=== PATIENT | male | born 1970 | race Caucasian/White ===

== ENCOUNTER → 2021-07-30 08:11 | Outpatient (CLI) | payer MEDICAID, SELFPAY ==
--- NOTE | 2021-07-30 14:49 | PFTCOMP ---
COMPLETE PULMONARY FUNCTION TEST INTERPRETATION Brief HPI: Patient is a 50 year old male, currently under the care of myself, who presents to [facility] for complete pulmonary function tests secondary to diagnosis of tobacco dependency. Respiratory therapist reports good effort and reproducible results. Interpretation: Forced expiration spirometry shows a moderately severe large airways obstructive ventilatory defect with an FEV1 of 57% predicted. There is a significant bronchodilator response in FVC and FEV1 by strict ATS criteria. Spirograms are of good quality and plateau slowly, indicating slowly emptying areas of the lungs. The respiratory flow volume loop shows decreased expiratory flow rates at all lung volumes consistent with airway obstruction. Lung volumes by body plethysmography show a normal total lung capacity at 7.28 L, 100% predicted. FRC and RV are elevated out of proportion. Lung volume measurements are consistent with air-trapping. Diffusion capacity by carbon monoxide is normal at 94% predicted. The airway resistance is slightly elevated. No previous pulmonary function tests were available for review. Impression: Partially reversible moderately severe large airways obstructive ventilatory defect, resulting in air trapping, in a pattern consistent with COPD/asthma overlap syndrome.
== END ==
PROVIDERS: PCP Family Medicine; Referring Provider Internal Medicine Critical Care Medicine; Visit Provider Internal Medicine Critical Care Medicine
DX: F17.200 Nicotine dependence, unspecified, uncomplicated (principal)
CPT/HCPCS: 94060; 94726; 94729

== ENCOUNTER → 2021-09-03 12:19 | Outpatient (CLI) | payer MEDICAID, SELFPAY ==
[2021-09-03 12:42] VITALS: PULSE 100; PULSE 101; PULSE 83; PULSE 99; O2SAT 94; O2SAT 95; O2SAT 96; O2SAT 97
--- NOTE | 2021-09-05 08:54 | PCM.PSN.6M ---
PSN 6 Minute Walk Test 6 Minute Walk Test 6 Minute Walk Test: 6 Minute Walk Test PSN:6-Minute Walk Test Start: 09/03/21 12:42 Freq: Status: Active Protocol: RESP.6MINW Document 09/03/21 12:42 KAREN (Rec: 09/03/21 12:44 KAREN [id number]) 6 Minute Walk Test Date Performed 09/03/21 Time Performed 12:30 Height 6 ft Weight: 110.223 kg Weight in Pounds 243.[address]: Dipesh Pearson Assistive device used: None Pre-test Oxygen Delivery Method Room Air Pulse Ox (%) 96 Pulse Rate (60-100 beats/min) 83 Dyspnea Mini Scale (0-10) 0 Exertion Mini Scale (6-20) 6 1st minute Oxygen Delivery Method Room Air Pulse Ox (%) 94 Pulse Rate (60-100 beats/min) 100 2nd minute Oxygen Delivery Method Room Air Pulse Ox (%) 95 Pulse Rate (60-100 beats/min) 99 3rd minute Oxygen Delivery Method Room Air Pulse Ox (%) 94 Pulse Rate (60-100 beats/min) 101 H 4th minute Oxygen Delivery Method Room Air Pulse Ox (%) 94 Pulse Rate (60-100 beats/min) 101 H 5th minute Oxygen Delivery Method Room Air Pulse Ox (%) 94 Pulse Rate (60-100 beats/min) 99 6th minute Oxygen Delivery Method Room Air Pulse Ox (%) 95 Pulse Rate (60-100 beats/min) 100 Dyspnea Mini Scale (0-10) 1 Exertion Mini Scale (6-20) 11 Post-test Oxygen Delivery Method Room Air Pulse Ox (%) 97 Pulse Rate (60-100 beats/min) 83 Full Laps Walked 14 Partial Lap, Number of Tiles Walked 10 Total Distance Walked (ft) 836 Interpretation Interpretation: The patient ambulated 836 feet over the course of 6 minutes beginning on room air without assistive devices. Pretesting oxygen saturation was noted to be 96% on room air. With ambulation, the shane oxygen saturation was 94%. There was no significant exertional oxygen desaturation. Recommendations Recommendations: There is no indication for the use of supplemental oxygen at this time.
== END ==
PROVIDERS: PCP Family Medicine; Referring Provider Internal Medicine Critical Care Medicine; Visit Provider Internal Medicine Critical Care Medicine
DX: F17.200 Nicotine dependence, unspecified, uncomplicated (principal)
CPT/HCPCS: 94618

== ENCOUNTER → 2021-09-12 13:34 | Outpatient (CLI) | payer MEDICAID, SELFPAY ==
--- NOTE | 2021-09-12 13:35 | CT_ITS ---
STUDY: LOW DOSE CT LUNG CANCER SCREENING REASON FOR EXAM: Male, 50 years old. Smoker 1 ppd and gt; 20 years RADIATION DOSAGE (If Supplied By Facility): CTDIvol = ( 4.02 ) mGy, DLP = ( 139.94 ) mGycm TECHNIQUE: No contrast was administered. Low dose technique was utilized (average mAS-38 and kVp 120). 1.25 mm axial source images with a slice interval of 1.25-mm were reconstructed in lung windows. 2.5 mm axial source images with a slice interval of 2.5-mm were reconstructed in lung windows. 5.0 mm axial source images with a slice interval of 5.0-mm were reconstructed in soft tissue windows. Nodule measured using lung windows on PACS and/or independent workstation with automated measurement of minimum and maximum diameter. Nodule measurement reported as average diameter rounded to the nearest whole number. Growth is defined as an increase ins size of greater than 1.5 mm. COMPARISON: None. NODULES: No suspicious nodules are seen. Emphysema: Minimal linear scarring in the anterior medial aspect of the right middle lobe as well as in the lingular segment of the left upper lobe. Endobronchial lesion: None Aorta: Unremarkable Coronary arteries: Coronary artery calcification. Heart: Unremarkable Pulmonary artery: Unremarkable Mediastinal nodes: Small benign appearing mediastinal lymph nodes. Other chest and abdominal findings: CT/Low Dose CT Lung Screening IMPRESSION: Lung-RADS category 2 - Continue annual screening with LDCT in 12 months. IMPORTANT NOTES FOR USE: ACR Lung-RADS Version 1.1 Assessment Categories Release Date: 2018 Category: Coded 0-4 bases on nodule(s) with highest degree of suspicion. Negative screen is defined as categories 1 and 2; a positive screen is defined as categories 3 and 4. Category 3 and 4A nodules that are unchanged on interval CT should be coded as category 2, and individuals returned to screening in 12 months. Category 4X: Category 3 or 4 nodules with additional imaging findings that increase the suspicion of lung cancer, such as spiculation, GGN that doubles in size in 1 year, enlarged lymph notes, etc. Category Modifiers: S (significant finding unrelated to lung cancer) Electronically Signed: Gerald Lester MD at 14:11 EST , Service support ,
== END ==
PROVIDERS: PCP Nurse Practitioner Family; Referring Provider Nurse Practitioner Acute Care; Visit Provider Nurse Practitioner Acute Care
DX: F17.210 Nicotine dependence, cigarettes, uncomplicated (principal)
CPT/HCPCS: 71271

== ENCOUNTER 2022-12-10 17:42 | Emergency (ER) | payer MEDICAID, SELFPAY ==
[2022-12-10 17:43] VITALS: BP 142/94; PULSE 89; RESP 18; TEMP 36.1; O2SAT 98; BMI 33.3
--- NOTE | 2022-12-10 17:46 | RAD_ITS ---
STUDY: X-RAY - UNILATERAL RIBS ( LEFT ) WITH CHEST REASON FOR EXAM: Male, 52 years old. Patient states he broke left ribs a month ago secondary to coughing. Patient heard a pop after coughing last night with recurrent left posterior rib pain. TECHNIQUE - RIBS: 5 view(s) of the ribs. TECHNIQUE - CHEST: Single PA view of the chest. COMPARISON: CT of the chest, September 12, 2021. FINDINGS - RIBS: There is a healed fracture of the left anterior 10th rib. There is a displaced fracture of the posterior lateral left eighth rib. FINDINGS - CHEST: The lungs are clear and expanded. There is no demonstrated pleural abnormality. Sternal cerclage wires are present from a prior sternotomy. The heart is normal in size. Normal mediastinum and andre. Normal visualized pulmonary arteries. Normal visualized aortic arch and descending thoracic aorta. Normal visualized thoracic spine. Normal visualized ribs, clavicles, and shoulders. There is no demonstrated abnormality of the visualized soft tissue structures of the upper abdomen. RAD/Ribs Uni Min 3V w/PA Chest IMPRESSION: RIBS: Acute fracture of the posterolateral left eighth rib. CHEST: Normal x-ray examination of the chest. Electronically Signed: Frank Albert DO at 18:28 EDT ,
== END 2022-12-10 19:31 | disposition left against medical advice (07) ==
LOC: ED 19:37
PROVIDERS: PCP Nurse Practitioner Family
DX: Z53.21 Procedure and treatment not carried out due to patient leaving prior to being seen by health care provider (principal)
CPT/HCPCS: 71101

== ENCOUNTER → 2024-04-05 | Outpatient (CLI) | payer MEDICAID, SELFPAY ==
--- NOTE | 2024-04-05 12:18 | CT_ITS ---
STUDY: LOW DOSE CT LUNG CANCER SCREENING REASON FOR EXAM: Male, 53 years old. smoker RADIATION DOSAGE (If Supplied By Facility): CTDIvol = ( 4.02 ) mGy, DLP = ( 137.43 ) mGycm TECHNIQUE: No contrast was administered. Low dose technique was utilized (average mAS-38 and kVp 120). 1.25 mm axial source images with a slice interval of 1.25-mm were reconstructed in lung windows. 2.5 mm axial source images with a slice interval of 2.5-mm were reconstructed in lung windows. 5.0 mm axial source images with a slice interval of 5.0-mm were reconstructed in soft tissue windows. COMPARISON: 09/12/2021 Emphysema: Mild emphysema. No noncalcified nodule or mass. Endobronchial lesion: None Aorta: No thoracic aortic aneurysm. CORONARY ARTERIES: Coronary artery calcification is seen. Heart: No cardiomegaly. Pulmonary artery: Normal Mediastinal nodes: Normal Other chest and abdominal findings: Status post median sternotomy. Multiple healed left rib fractures. CT/Low Dose CT Lung Screening IMPRESSION: Lung-RADS category 1 - Continue annual screening with LDCT in 12 months. IMPORTANT NOTES FOR USE: ACR Lung-RADS Version 1.1 Assessment Categories Release Date: 2018 Category: Coded 0-4 bases on nodule(s) with highest degree of suspicion. Negative screen is defined as categories 1 and 2; a positive screen is defined as categories 3 and 4. Category 3 and 4A nodules that are unchanged on interval CT should be coded as category 2, and individuals returned to screening in 12 months. Category 4X: Category 3 or 4 nodules with additional imaging findings that increase the suspicion of lung cancer, such as spiculation, GGN that doubles in size in 1 year, enlarged lymph notes, etc. Category Modifiers: S (significant finding unrelated to lung cancer) Electronically Signed: Rodney Maldonado MD at 9:57 EDT ,
== END | disposition home or self-care (01) ==
PROVIDERS: PCP Nurse Practitioner Family; Referring Provider Nurse Practitioner Acute Care; Visit Provider Nurse Practitioner Acute Care
DX: F17.210 Nicotine dependence, cigarettes, uncomplicated (principal); J44.9 Chronic obstructive pulmonary disease, unspecified
CPT/HCPCS: 71271; 94060; 94726; 94729

== ENCOUNTER → 2024-04-08 | Outpatient (CLI) | payer MEDICAID, SELFPAY ==
[2024-04-08 12:30] VITALS: PULSE 100; PULSE 103; PULSE 86; PULSE 89; PULSE 95; PULSE 97; PULSE 98; O2SAT 88; O2SAT 90; O2SAT 91; O2SAT 92; O2SAT 93; O2SAT 94
--- NOTE | 2024-04-08 13:06 | CPS ---
Pt dropped to 88% 2 minutes into walk. Pt was placed on 1 lpm and finished walk on the 1 lpm.
--- NOTE | 2024-04-14 09:47 | PCM.PSN.6M ---
PSN 6 Minute Walk Test 6 Minute Walk Test 6 Minute Walk Test: 6 Minute Walk Test PSN:6-Minute Walk Test Start: 04/08/24 12:55 Freq: Status: Active Protocol: RESP.6MINW Document 04/08/24 12:30 AEH (Rec: 04/08/24 13:06 AEH [id number]) 6 Minute Walk Test Date Performed 04/08/24 Time Performed 12:30 Height 6 ft 1 in Weight: 243 lb Weight in Pounds 243.[address]: Sheryl Assistive device used: None Pre-test Oxygen Delivery Method Room Air Pulse Ox (%) 92 Pulse Rate (60-100 beats/min) 86 Dyspnea Mini Scale (0-10) 0 Exertion Mini Scale (6-20) 6 1st minute Oxygen Delivery Method Room Air Pulse Ox (%) 90 Pulse Rate (60-100 beats/min) 103 H 2nd minute Oxygen Delivery Method Room Air Pulse Ox (%) 88 Pulse Rate (60-100 beats/min) 98 3rd minute Oxygen Flow Rate (L/min) (L/min) 1 Pulse Ox (%) 94 Pulse Rate (60-100 beats/min) 95 4th minute Oxygen Flow Rate (L/min) (L/min) 1 Oxygen Delivery Method Nasal Cannula Pulse Ox (%) 92 Pulse Rate (60-100 beats/min) 97 5th minute Oxygen Flow Rate (L/min) (L/min) 1 Oxygen Delivery Method Nasal Cannula Pulse Ox (%) 91 Pulse Rate (60-100 beats/min) 100 Dyspnea Mini Scale (0-10) 0.5 Exertion Mini Scale (6-20) 11 6th minute Oxygen Flow Rate (L/min) (L/min) 1 Oxygen Delivery Method Nasal Cannula Pulse Ox (%) 90 Pulse Rate (60-100 beats/min) 98 Dyspnea Mini Scale (0-10) 0.5 Exertion Mini Scale (6-20) 11 Post-test Oxygen Flow Rate (L/min) (L/min) 1 Oxygen Delivery Method Nasal Cannula Pulse Ox (%) 93 Pulse Rate (60-100 beats/min) 89 Full Laps Walked 13 Partial Lap, Number of Tiles Walked 11 Total Distance Walked (ft) 778 Interpretation Interpretation: The patient ambulated 778 feet over the course of 6 minutes beginning on room air without assistive devices. Pretesting oxygen saturation was 92% on room air. With ambulation, the shane oxygen saturation was 88%, requiring 1 L/min of supplemental oxygen to complete the remainder of the test, while maintaining appropriate oxygen saturations. Recommendations Recommendations: 1 L/min of supplemental oxygen should be utilized with exertion.
== END | disposition home or self-care (01) ==
LOC: PSN 12:18
PROVIDERS: PCP Nurse Practitioner Family; Referring Provider Nurse Practitioner Acute Care; Visit Provider Nurse Practitioner Acute Care
DX: J44.9 Chronic obstructive pulmonary disease, unspecified (principal)
CPT/HCPCS: 94618

== ENCOUNTER → 2024-07-20 | Outpatient (CLI) | payer MEDICAID, SELFPAY ==
[2024-07-20 12:51] LABS: Anion Gap 7 (5-15); BUN 14 mg/dL (7-18); BUN/Creat Ratio 13.6 RATIO (10-20); Calcium,Total 9.4 mg/dL (8.5-10.1); Chloride 100 mmol/L (98-107); Creatinine, Serum 1.03 mg/dL (0.70-1.30); EST Glomerular Filtration Rate 80 mL/min (>60); Est Glom Filt Rate - Afr Amer 97 mL/min (>60); Glucose 344 mg/dL (74-106); Potassium 4.1 mmol/L (3.5-5.1); Sodium Level 135 mmol/L (136-145)
[2024-07-20 12:56] LABS: Hemoglobin A1c 11.2 % (3.8-5.6)
== END | disposition home or self-care (01) ==
LOC: BIMLAB 10:28
PROVIDERS: PCP Family Medicine; Referring Provider Family Medicine; Visit Provider Family Medicine
DX: E11.9 Type 2 diabetes mellitus without complications (principal)
CPT/HCPCS: 36415; 80048; 83036; 84443

== ENCOUNTER 2024-08-31 10:53 | Outpatient (CLI) | payer MEDICAID, SELFPAY ==
[2024-08-31 12:46] LABS: Absolute Lymphocyte Count 1.94 X10^3/uL (0.83-4.51); Absolute Neutrophil Count 5.7 X10^3/uL (2.0-7.7); Basophil# 0.05 X10^3/uL; Basophil% 0.6 % (0-1); Eosinophils% 1.2 % (0-5); Hematocrit 47.8 % (40-54); Hemoglobin 16.1 g/dL (13.0-16.5); Lymphocyte # 1.94 X10^3/ul (0.83-4.51); Lymphocyte % 23.3 % (19-41); Mean Corp Hgb Conc 33.7 g/dL (32-36); Mean Corpuscular Hgb 29.6 pg (27.0-32.0); Mean Corpuscular Volume 87.9 fL (80-94); Mean Platelet Vol. 10.8 fl (6.2-12.0); Monocyte# 0.52 X10^3/uL; Monocyte% 6.3 % (0-10); NRBC Flagged by Analyzer 0 % (0-5); Neutrophil # 5.65 X10^3/uL (2.7-7.7); Neutrophil % 67.9 % (47-70); Platelet Count 303 K/mm3 (150-450); RBC Distribution Width CV 13.2 % (11.6-14.6); RBC Distribution Width SD 42.8 fl (35.1-43.9); Red Blood Count 5.44 M/mm3 (4.6-6.2); White Blood Count 8.3 K/mm3 (4.4-11.0)
[2024-08-31 13:11] LABS: Glucose 193 mg/dL (74-106)
[2024-08-31 13:36] LABS: Magnesium 2.7 mg/dL (1.6-2.6)
[2024-08-31 14:20] LABS: Hemoglobin A1c 9.4 % (3.8-5.6)
[2024-08-31 22:46] LABS: Vitamin B12 473 pg/mL (211-911)
[2024-09-05 13:07] LABS: Vitamin B1, Thiamine 150.4 nmol/L (66.5-200.0)
== END 2024-08-31 23:59 | disposition home or self-care (01) ==
LOC: BIMLAB 10:54
PROVIDERS: PCP Family Medicine; Referring Provider Family Medicine; Visit Provider Family Medicine
DX: E11.42 Type 2 diabetes mellitus with diabetic polyneuropathy (principal)
CPT/HCPCS: 36415; 82607; 82746; 82947; 83036; 83735; 84425; 85025

== ENCOUNTER → 2024-10-05 | Outpatient (CLI) | payer MEDICAID, SELFPAY ==
--- NOTE | 2024-10-05 13:01 | NEURO ---
NCS and/or EMG Patient Report Ordering Doctor: Jim Self DATE OF SERVICE: 10/05/24 Cristobal presents with complaints of numbness and tingling in both hands, worse on the right side. Electrodiagnostic findings: Right median motor nerve demonstrates prolonged latency with reduced amplitude and reduced conduction velocity. Left median motor nerve demonstrates prolonged latency with reduced amplitude and reduced conduction velocity. Ulnar motor response is within normal limits bilaterally. Prolonged right median sensory latency at the wrist. Needle EMG testing was performed in the upper limbs. All muscles tested showed no evidence of denervation with normal motor unit action potentials. Electrodiagnostic impression: This is an abnormal study in the upper limbs 1. Electrodiagnostic findings suggestive of bilateral median mononeuropathy. This is consistent with a moderate bilateral carpal tunnel syndrome. 2. There is no electrodiagnostic evidence for cervical radiculopathy Multi Select Codes Neurology Neurology Interp Codes: 98059-57 Musc test done w/n test comp (interp) (2) and 72426-58 Nrv cndj test 9-10 studies (interp)
== END | disposition home or self-care (01) ==
LOC: PSN 09:34
PROVIDERS: PCP Family Medicine; Referring Provider Orthopaedic Surgery Sports Medicine; Visit Provider Orthopaedic Surgery Sports Medicine
DX: G56.03 Carpal tunnel syndrome, bilateral upper limbs (principal)
CPT/HCPCS: 95886; 95911

== ENCOUNTER → 2024-10-21 | Outpatient (CLI) | payer MEDICAID, SELFPAY ==
[2024-10-21] MEDS: Ipratropium/Albuterol Sulfate 3 ML AMPUL.NEB INHALATION (22:23)
[2024-10-22] MEDS: Ipratropium/Albuterol Sulfate 3 ML AMPUL.NEB INHALATION (02:07)
== END | disposition home or self-care (01) ==
LOC: SL 20:23
PROVIDERS: PCP Family Medicine; Referring Provider Nurse Practitioner Acute Care; Visit Provider Nurse Practitioner Acute Care
DX: G47.33 Obstructive sleep apnea (adult) (pediatric) (principal)
CPT/HCPCS: 95811

== ENCOUNTER → 2025-03-21 | Outpatient (CLI) | payer MEDICAID, SELFPAY ==
[2025-03-21 13:44] LABS: Cholesterol 216 mg/dL (<=200); Low Density Lipoprotein Calc. 99 mg/dL; Magnesium 2.0 mg/dL (1.5-2.2); Triglycerides 394 mg/dL; Very Low Density Lipoprotein 79 mg/dL (5-40); cholesterol:hdl ratio screen 5.58
[2025-03-21 13:48] LABS: AST(SGOT) 20 U/L (<=37); Alanine Aminotransfer ALT/SGPT 35 U/L (<=46); Albumin, Serum 4.5 g/dL (3.5-5.0); Alkaline Phosphatase 96 U/L (40-129); Anion Gap 15 (5-15); BUN 16 mg/dL (4-19); BUN/Creat Ratio 17.4 RATIO (10-20); Calcium,Total 10.2 mg/dL (7.6-11.0); Carbon Dioxide 21.7 mmol/L (21.0-32.0); Chloride 100 mmol/L (98-108); Globulin 3.3 g/dL (2.2-4.2); Glucose 371 mg/dL (70-99); Potassium 4.1 mmol/L (3.3-5.1)
== END | disposition home or self-care (01) ==
LOC: LAB 12:09
PROVIDERS: PCP Family Medicine; Referring Provider Family Medicine; Visit Provider Family Medicine
DX: E78.1 Pure hyperglyceridemia (principal); E08.42 Diabetes mellitus due to underlying condition with diabetic polyneuropathy; R25.2 Cramp and spasm
CPT/HCPCS: 36415; 80053; 80061; 83036; 83735

== ENCOUNTER 2025-04-05 05:53 | Day surgery (SDC) | payer MEDICAID, SELFPAY ==
--- NOTE | 2025-03-22 17:55 | PAT.ANESEVAL ---
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 When Was Last Pacemaker Check QUESTION #4 FULL TEXT: You/Your Family Experience fever (hyperthermia) with Anesthesia Last Oral Intake Last Oral intake: Last Oral Intake NPO since Meds taken in AM with sips of water? Meds patient instructed to take am of surgery PONV PONV - reinforcing steel placer: PONV - reinforcing steel placer Female No 03/22/25 15:03 HX of Motion Sickness No 03/22/25 15:03 HX of N/V After Surgery No 03/22/25 15:03 Non-Smoker No 03/22/25 15:03 Duration of Surgery greater No 03/22/25 15:03 than 60 minutes Number of Risk Factors PONV Score Height & Weight Height & Weight: Anesthesia: Height & Weight Height 6 ft 1 in 02/24/25 10:16 Respiratory Assessment Respiratory Assessment - reinforcing steel placer: Respiratory Tract Infection Hx - reinforcing steel placer Hx Respiratory Tract Infection No 03/22/25 15:03 STOP Sleep Apnea STOP Sleep Apnea - reinforcing steel placer: STOP Sleep Apnea - reinforcing steel placer Hx Hypertension Yes: CONTROLLED WITH MEDS 03/22/25 15:03 Hx Sleep Apnea Yes 03/22/25 15:03 CPAP Yes 03/22/25 15:03 BIPAP No 03/22/25 15:03 Do you snore loudly (louder than talking or can be heard Do you often feel tired/ fatigued/ sleepy during daytime? Has anyone observed you stop breathing during sleep? STOP Results Positive 03/22/25 15:03 QUESTION #5 FULL TEXT : Do you snore loudly (louder than talking or can be heard through closed doors)? 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 Specify any problems Hx of Preganancy in last 3 N/A 03/22/25 15:03 Months Nurse Filling Out Transfusion [id number] 03/22/25 15:03 & Questions: Date: 03/22/25 03/22/25 15:03 Time: 15:09 03/22/25 15:03 Patient unable to answer at this time (ie. confused, unrespo /Reproduction History /Reproductive History - reinforcing steel placer: /Reproductive Hx- reinforcing steel placer Hx Now Gestational Age (in weeks): EDC: Hx Hx Para Hx Section SAB PFSH Medical History (Updated 03/22/25 @ 15:14 by Evelio Moore) Depression Anxiety Restless legs Syncope Gastric reflux CPAP (continuous positive airway pressure) dependence Sleep apnea Smoker On home oxygen therapy Shortness of breath on exertion Chronic cough Leg cramps History of stress test H/O transesophageal echocardiography (DRAKE) for monitoring History of echocardiogram Cardiology follow-up encounter Arteriosclerotic heart disease Obesity History of left tennis elbow Tobacco abuse Type 2 diabetes mellitus Dyslipidemia Acute anxiety LOUISE (obstructive sleep apnea) Nocturnal hypoxemia Polyneuropathy Hypertension Environmental and seasonal allergies Uncontrolled persistent asthma Chest pain, atypical Hyperglycemia Arthralgia of acromioclavicular joint Chronic sinusitis Non-compliance Home Medications ?Medication ?Instructions ?Recorded ?Last Taken ?Type fluoxetine 40 mg capsule 40 mg PO DAILY 05/13/21 Unknown History epinephrine 0.3 mg/0.3 mL 0.3 mg IM Q5-15M PRN anaphylaxis 05/14/21 Unknown History injection syringe nitroglycerin 0.4 mg sublingual 0.4 mg buccal Q5-15M PRN chest pain 01/08/22 Unknown History tablet budesonide-formoterol HFA 160 2 puff inhalation BID #3 ea 05/19/24 Unknown Rx mcg-4.5 mcg/actuation aerosol inhaler (Symbicort) cetirizine 10 mg tablet 10 mg PO DAILY #90 tabs 05/19/24 Unknown Rx fluticasone propionate 50 1 spray intranasal BID #16 grams 05/19/24 Unknown Rx mcg/actuation nasal spray,suspension (Flonase Allergy Relief) tiotropium bromide 2.5 2 puff inhalation QDAY #3 ea 05/19/24 Unknown Rx mcg/actuation mist for inhalation (Spiriva Respimat) spacer #1 ea 07/21/24 Unknown Rx Pulse ox meter #1 ea 07/26/24 Unknown Rx blood pressure kit-extra large #1 ea 07/26/24 Unknown Rx pen needle, diabetic 31 gauge x #100 ea 08/02/24 Unknown Rx 5/16 (Comfort EZ Pen Morganza) guaifenesin 1,200 mg tablet, 1,200 mg PO Q12H PRN congestion 08/30/24 Unknown History extended release 12 hr lidocaine 4 % topical patch 2 patch topical QDAY PRN pain #30 08/30/24 Unknown Rx (Salonpas (lidocaine)) ea magnesium oxide 400 mg (241.3 mg 400 mg PO QHS #30 tabs 08/30/24 Unknown Rx magnesium) tablet vitamin B complex 1 cap PO QDAY #30 caps 09/05/24 Unknown Rx montelukast 10 mg tablet 10 mg PO QPM #90 tabs 09/07/24 Unknown Rx atorvastatin 20 mg tablet 20 mg PO QPM #90 tabs 10/17/24 Unknown Rx empagliflozin 10 mg tablet 10 mg PO DAILY #90 tabs 10/17/24 Unknown Rx (Jardiance) lisinopril 20 mg tablet 20 mg PO DAILY #90 tabs 10/17/24 Unknown Rx metoprolol succinate 25 mg 25 mg PO QDAY #90 tabs 10/17/24 Unknown Rx tablet,extended release 24 hr insulin aspart U-100 100 unit/mL 25 unit (0.25 mL) subcut TID #22.5 10/31/24 Unknown Rx (3 mL) subcutaneous pen (Novolog mL FlexPen U-100 Insulin aspart) metformin 1,000 mg tablet 1,000 mg PO BID #180 tabs 10/31/24 Unknown Rx albuterol 90 mcg-budesonide 80 2 inh inhalation TID PRN shortness 11/01/24 Unknown Rx mcg/actuation HFA aerosol inhaler of breath #10.7 grams (Airsupra) naproxen 500 mg tablet 500 mg PO BID #60 tabs 11/01/24 Unknown Rx handicap placard #1 ea 11/30/24 Unknown Rx blood-glucose sensor (FreeStyle #2 ea 12/12/24 Unknown Rx Jt 3 Plus Sensor device) promethazine-DM 6.25 mg-15 mg/5 mL 5 ml PO Q4-6H PRN cough #473 mL 01/03/25 Unknown Rx oral syrup pregabalin 200 mg capsule (Lyrica) 200 mg PO TID #270 caps 02/01/25 Unknown Rx oxymetazoline 0.05 % nasal spray 3 spray intranasal Q12H PRN nasal 02/22/25 Unknown History (Afrin (oxymetazoline)) congestion pantoprazole 40 mg tablet,delayed 40 mg PO QDAY #30 tabs 02/22/25 Unknown Rx release tizanidine 4 mg capsule 4 mg PO Q8H PRN muscle spasticity 02/22/25 Unknown Rx #60 caps tirzepatide 2.5 mg/0.5 mL 2.5 mg (0.5 mL) subcut QWEEK #2 mL 03/02/25 Unknown Rx subcutaneous pen injector (Mounjaro) insulin glargine 100 unit/mL (3 25 unit (0.25 mL) subcut BID #15 mL 03/20/25 Unknown Rx mL) subcutaneous pen (Lantus Solostar U-100 Insulin) ipratropium 0.5 mg-albuterol 3 mg 3 ml inhalation Q4H PRN PRN SOB 03/21/25 Unknown Rx (2.5 mg base)/3 mL nebulization &/OR WHEEZING #180 mL soln nicotine (polacrilex) 4 mg buccal 4 mg buccal Q8H PRN nicotine 03/21/25 Unknown Rx lozenge cravings #72 ea Allergy/AdvReac Type Severity Reaction Status Date / Time bee pollen AdvReac throat Verified 03/22/25 14:54 swelling Family History Mother Cancer Surgical History History of cardiac catheterization History of cataract surgery History of open heart surgery S/P CABG (coronary artery bypass graft) (01/31/22) History of arthroscopic knee surgery Social History adopted: No household members: spouse housing: house current occupational status: unemployed Smoking Status: Current every day smoker tobacco type: cigarettes Tobacco: How many years used: 34 quit status: considering quitting alcohol intake: former details: has not drank alcohol in 4 or 5 years substance use type: does not use diet: diabetic caffeine: Yes (On avg 1 cup coffee daily and a sugar free soda) Type: carbonated beverages and coffee eating out: rarely or never what type of physical activity do you participate in: walking frequency: daily duration: < 15 minutes/day seatbelt use: always do you feel safe at home: Yes Audit: Pertinent Findings Pertinent Findings EKG Perinent findings: October 17, 2024. Sinus rhythm. Negative precordial T waves. Within normal limits. Stress test pertinent findings: October 30, 2020. EF 62%. Perfusion defect in the inferior wall at rest and at stress. Small area of reversibility in the inferior wall. (See cath below) Echo (EF%) pertinent findings: October 12, 2024. EF of 55%. Poor quality study. No aortic valve stenosis. Heart catheterization pertinent findings: January 27, 2022. LAD has a mid 90% stenosis. Left circumflex has a mid 90% stenosis. RCA has a mid 70% stenosis. (Patient proceeded to three-vessel CABG.) Consult pertinent findings: October 17, 2024. Dr. Miller. 1. Coronary artery disease?chronic-status post three-vessel CABG in 2021. Continue aspirin and stop smoking. Start low-dose beta-blockers. 2. Status post CABG?acute-RANDALL to the LAD. rSVG to the obtuse marginal. rSVG to the posterior descending. Patient now complaining of sternal issues?referred to cardiac surgery. 3. Hypertension?chronic?continue lisinopril. Add low-dose beta-hector. 4. COPD?chronic-as per pulmonology. If the newly started beta-blockers make respiratory problems worse we may have to stop it. Recommendation Anesthesia Recommendation Anesthesia recommendation: OPTIMIZED for anesthesia
--- NOTE | 2025-03-22 17:55 | PAT.ANESEVAL ---
Pre-Assessment Diagnosis/Proposed Procedure Planned Operative Procedure(s): RIGHT ENODOSCOPIC CARPAL TUNNEL RELEASE Anesthesia History Anesthesia History - outpatient scheduler: Anesthesia History - outpatient scheduler Hx Hospitalization No 03/22/25 15:03 Any Problems With Anesthesia No 03/22/25 15:03 Cholinesterase deficiency No 03/22/25 15:03 You/Your Family Experience No 03/22/25 15:03 fever (hyperthermia) with Relationship Recent Exposure to Contagious Disease Does patient have nerve No 03/22/25 15:03 stimulator Patient instructed to have device shut off --Does patient have Pacemaker or ICD? When Was Last Pacemaker Check QUESTION #4 FULL TEXT: You/Your Family Experience fever (hyperthermia) with Anesthesia Last Oral Intake Last Oral intake: Last Oral Intake NPO since Meds taken in AM with sips of water? Meds patient instructed to take am of surgery PONV PONV - outpatient scheduler: PONV - outpatient scheduler Female No 03/22/25 15:03 HX of Motion Sickness No 03/22/25 15:03 HX of N/V After Surgery No 03/22/25 15:03 Non-Smoker No 03/22/25 15:03 Duration of Surgery greater No 03/22/25 15:03 than 60 minutes Number of Risk Factors PONV Score Height & Weight Height & Weight: Anesthesia: Height & Weight Height 6 ft 1 in 02/24/25 10:16 Respiratory Assessment Respiratory Assessment - outpatient scheduler: Respiratory Tract Infection Hx - outpatient scheduler Hx Respiratory Tract Infection No 03/22/25 15:03 STOP Sleep Apnea STOP Sleep Apnea - outpatient scheduler: STOP Sleep Apnea - outpatient scheduler Hx Hypertension Yes: CONTROLLED WITH MEDS 03/22/25 15:03 Hx Sleep Apnea Yes 03/22/25 15:03 CPAP Yes 03/22/25 15:03 BIPAP No 03/22/25 15:03 Do you snore loudly (louder than talking or can be heard Do you often feel tired/ fatigued/ sleepy during daytime? Has anyone observed you stop breathing during sleep? STOP Results Positive 03/22/25 15:03 QUESTION #5 FULL TEXT : Do you snore loudly (louder than talking or can be heard through closed doors)? 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 Specify any problems Hx of Preganancy in last 3 N/A 03/22/25 15:03 Months Nurse Filling Out Transfusion [email or web address] 03/22/25 15:03 & Questions: Date: 03/22/25 03/22/25 15:03 Time: 15:09 03/22/25 15:03 Patient unable to answer at this time (ie. confused, unrespo /Reproduction History /Reproductive History - outpatient scheduler: /Reproductive Hx- outpatient scheduler Hx Now Gestational Age (in weeks): EDC: Hx Hx Para Hx Section SAB PFSH Medical History (Updated 03/22/25 @ 15:14 by Evelio Moore) Depression Anxiety Restless legs Syncope Gastric reflux CPAP (continuous positive airway pressure) dependence Sleep apnea Smoker On home oxygen therapy Shortness of breath on exertion Chronic cough Leg cramps History of stress test H/O transesophageal echocardiography (DRAKE) for monitoring History of echocardiogram Cardiology follow-up encounter Arteriosclerotic heart disease Obesity History of left tennis elbow Tobacco abuse Type 2 diabetes mellitus Dyslipidemia Acute anxiety LOUISE (obstructive sleep apnea) Nocturnal hypoxemia Polyneuropathy Hypertension Environmental and seasonal allergies Uncontrolled persistent asthma Chest pain, atypical Hyperglycemia Arthralgia of acromioclavicular joint Chronic sinusitis Non-compliance Home Medications ?Medication ?Instructions ?Recorded ?Last Taken ?Type fluoxetine 40 mg capsule 40 mg PO DAILY 05/13/21 Unknown History epinephrine 0.3 mg/0.3 mL 0.3 mg IM Q5-15M PRN anaphylaxis 05/14/21 Unknown History injection syringe nitroglycerin 0.4 mg sublingual 0.4 mg buccal Q5-15M PRN chest pain 01/08/22 Unknown History tablet budesonide-formoterol HFA 160 2 puff inhalation BID #3 ea 05/19/24 Unknown Rx mcg-4.5 mcg/actuation aerosol inhaler (Symbicort) cetirizine 10 mg tablet 10 mg PO DAILY #90 tabs 05/19/24 Unknown Rx fluticasone propionate 50 1 spray intranasal BID #16 grams 05/19/24 Unknown Rx mcg/actuation nasal spray,suspension (Flonase Allergy Relief) tiotropium bromide 2.5 2 puff inhalation QDAY #3 ea 05/19/24 Unknown Rx mcg/actuation mist for inhalation (Spiriva Respimat) spacer #1 ea 07/21/24 Unknown Rx Pulse ox meter #1 ea 07/26/24 Unknown Rx blood pressure kit-extra large #1 ea 07/26/24 Unknown Rx pen needle, diabetic 31 gauge x #100 ea 08/02/24 Unknown Rx 5/16 (Comfort EZ Pen [place]) guaifenesin 1,200 mg tablet, 1,200 mg PO Q12H PRN congestion 08/30/24 Unknown History extended release 12 hr lidocaine 4 % topical patch 2 patch topical QDAY PRN pain #30 08/30/24 Unknown Rx (Salonpas (lidocaine)) ea magnesium oxide 400 mg (241.3 mg 400 mg PO QHS #30 tabs 08/30/24 Unknown Rx magnesium) tablet vitamin B complex 1 cap PO QDAY #30 caps 09/05/24 Unknown Rx montelukast 10 mg tablet 10 mg PO QPM #90 tabs 09/07/24 Unknown Rx atorvastatin 20 mg tablet 20 mg PO QPM #90 tabs 10/17/24 Unknown Rx empagliflozin 10 mg tablet 10 mg PO DAILY #90 tabs 10/17/24 Unknown Rx (Jardiance) lisinopril 20 mg tablet 20 mg PO DAILY #90 tabs 10/17/24 Unknown Rx metoprolol succinate 25 mg 25 mg PO QDAY #90 tabs 10/17/24 Unknown Rx tablet,extended release 24 hr insulin aspart U-100 100 unit/mL 25 unit (0.25 mL) subcut TID #22.5 10/31/24 Unknown Rx (3 mL) subcutaneous pen (Novolog mL FlexPen U-100 Insulin aspart) metformin 1,000 mg tablet 1,000 mg PO BID #180 tabs 10/31/24 Unknown Rx albuterol 90 mcg-budesonide 80 2 inh inhalation TID PRN shortness 11/01/24 Unknown Rx mcg/actuation HFA aerosol inhaler of breath #10.7 grams (Airsupra) naproxen 500 mg tablet 500 mg PO BID #60 tabs 11/01/24 Unknown Rx handicap placard #1 ea 11/30/24 Unknown Rx blood-glucose sensor (FreeStyle #2 ea 12/12/24 Unknown Rx Jt 3 Plus Sensor device) promethazine-DM 6.25 mg-15 mg/5 mL 5 ml PO Q4-6H PRN cough #473 mL 01/03/25 Unknown Rx oral syrup pregabalin 200 mg capsule (Lyrica) 200 mg PO TID #270 caps 02/01/25 Unknown Rx oxymetazoline 0.05 % nasal spray 3 spray intranasal Q12H PRN nasal 02/22/25 Unknown History (Afrin (oxymetazoline)) congestion pantoprazole 40 mg tablet,delayed 40 mg PO QDAY #30 tabs 02/22/25 Unknown Rx release tizanidine 4 mg capsule 4 mg PO Q8H PRN muscle spasticity 02/22/25 Unknown Rx #60 caps tirzepatide 2.5 mg/0.5 mL 2.5 mg (0.5 mL) subcut QWEEK #2 mL 03/02/25 Unknown Rx subcutaneous pen injector (Mounjaro) insulin glargine 100 unit/mL (3 25 unit (0.25 mL) subcut BID #15 mL 03/20/25 Unknown Rx mL) subcutaneous pen (Lantus Solostar U-100 Insulin) ipratropium 0.5 mg-albuterol 3 mg 3 ml inhalation Q4H PRN PRN SOB 03/21/25 Unknown Rx (2.5 mg base)/3 mL nebulization &/OR WHEEZING #180 mL soln nicotine (polacrilex) 4 mg buccal 4 mg buccal Q8H PRN nicotine 03/21/25 Unknown Rx lozenge cravings #72 ea Allergy/AdvReac Type Severity Reaction Status Date / Time bee pollen AdvReac throat Verified 03/22/25 14:54 swelling Family History Mother Cancer Surgical History History of cardiac catheterization History of cataract surgery History of open heart surgery S/P CABG (coronary artery bypass graft) (01/31/22) History of arthroscopic knee surgery Social History adopted: No household members: spouse housing: house current occupational status: unemployed Smoking Status: Current every day smoker tobacco type: cigarettes Tobacco: How many years used: 34 quit status: considering quitting alcohol intake: former details: has not drank alcohol in 4 or 5 years substance use type: does not use diet: diabetic caffeine: Yes (On avg 1 cup coffee daily and a sugar free soda) Type: carbonated beverages and coffee eating out: rarely or never what type of physical activity do you participate in: walking frequency: daily duration: < 15 minutes/day seatbelt use: always do you feel safe at home: Yes Audit: Pertinent Findings Pertinent Findings EKG Perinent findings: October 17, 2024. Sinus rhythm. Negative precordial T waves. Within normal limits. Stress test pertinent findings: October 30, 2020. EF 62%. Perfusion defect in the inferior wall at rest and at stress. Small area of reversibility in the inferior wall. (See cath below) Echo (EF%) pertinent findings: October 12, 2024. EF of 55%. Poor quality study. No aortic valve stenosis. Heart catheterization pertinent findings: January 27, 2022. LAD has a mid 90% stenosis. Left circumflex has a mid 90% stenosis. RCA has a mid 70% stenosis. (Patient proceeded to three-vessel CABG.) Consult pertinent findings: October 17, 2024. Dr. Miller. 1. Coronary artery disease?chronic-status post three-vessel CABG in 2021. Continue aspirin and stop smoking. Start low-dose beta-blockers. 2. Status post CABG?acute-RANDALL to the LAD. rSVG to the obtuse marginal. rSVG to the posterior descending. Patient now complaining of sternal issues?referred to cardiac surgery. 3. Hypertension?chronic?continue lisinopril. Add low-dose beta-hector. 4. COPD?chronic-as per pulmonology. If the newly started beta-blockers make respiratory problems worse we may have to stop it. Recommendation Anesthesia Recommendation Anesthesia recommendation: OPTIMIZED for anesthesia
[2025-04-05] VITALS (8 sets, daily range): BP systolic 109–125; BP diastolic 63–84; PULSE 82–90; RESP 16–18; TEMP 36.2–36.6; O2SAT 93–94; BMI 34.0
--- OUTSIDE RECORDS SUMMARY | 2025-04-05 05:57 | XMS RPT_ITS | CCD ---
Author Organization [facility] Care Team Providers Care Consulting Analyst Name Role Phone Alexis PERSONNEL GENERALIST MANAGEREbony Unavailable MARY DRAWER FITTER-JAIRO, ABISAI Scott Primary Care Physicia n MARY GILL, ABISAI Scott Primary Care Unavailabl anna WHEELER MD, MARVIN Consulting Unavailchrist HAWK MD, DEVONTE Attending Unavailable HEAVEN CAIN MD, AMANDA Admitting Unavail able NABEEL JIN, NAWAF Consulting Unavailab pastor ALVARADO DO, PAULINO Consulting Alexis HAWK MD, DEVONTE Consulting Unavailable MARY GILL, ABISAI Scott Primary Care Unavailabl e HEAVEN CAIN MD, AMANDA Attending Unavail able BARBOSA PERSONNEL GENERALIST MANAGER, MS. MELVIN Jones Attending Unavaila ble MARY GILL, ABISAI Scott Primary Care Unavailabl e MARY GILL, ABISAI Scott Primary Care UnavailCHAYITO Isabel Attending Unavailable MARY GILL, ABISAI Scott Primary Care Unavailjulissa HAWK MD, DEVONTE Attending Unavailable MARY GILL, ABISAI Scott Primary Care Unavailjulissa HAWK MD, DEVONTE Attending Unavailable MARY GILL, ABISAI Scott Primary Care Unavailabl e JOHANNA JIN., DR. BONILLA Attending Unavail able Unavailable Primary Care Provider UnavailChris Dewitt Referring Unavailable Chris Gasca Attending Unavailable ANANYA HAYS Attending Unavailable GILSON HAWK Primary Care Unavailable ANANYA HAYS Attending Unavailable ANANYA HAYS Attending Unavailable ANANYA HAYS Primary Care Unavailable ANANYA HAYS Attending Unavailable ANANYA HAYS Attending Unavailable Dr. Gilson Hawk DO Primary Care Provider [phone] Dr. Gilson Hawk DO Referring Provider Kamron AGUIAR-CMyra Attending Provider Dr. Gilson Hawk DO Attending Provider Gordo JIN, Dr. Ontiveros Attending Provider [phone] Dr. Weston Browne DO Attending Provider Yamilex JIN, Dr. Bradford Attending Provider [phone] Jim Self MD Attending Provider [phone] Dr. Gilson Hawk DO Primary Care Provider Michael CHAMPION, Dr. Gilson Fairchild Referring Provider [phone] Kamron PROGRAM SERVICES ASSISTANT-C, Myra Attending Provider Michael CHAMPION, Dr. Gilson Fairchild Attending Provider Dr. Modesto Finney MD Attending Provider Jim Self Attending Unavailable Mollison, Jim Referring Unavailable Brown, Gilson R Primary Care Unavailable Weston Browne Attending Unavailable Brown, Gilson R Primary Care Unavailable Mary PROGRAM SERVICES ASSISTANT, Abisai Primary Care Unavailable Tavares Hawk Attending Unavailable Espinoza PROGRAM SERVICES ASSISTANT, Ebony Referring Unavailable Mollison, Jim Attending Unavailable Brown, Gilson R Referring Unavailable Brown, Gilson R Primary Care Unavailable Brown, Gilson R Attending Unavailable Brown, Gilson R Referring Unavailable Brown, Gilson R Primary Care Unavailable Espinoza PROGRAM SERVICES ASSISTANT, Ebony Attending Unavailable Brown, Gilson R Attending Unavailable Brown, Gilson R Referring Unavailable Brown, Gilson R Primary Care Unavailable Brown, Gilson R Referring Unavailable Brown, Gilson R Primary Care Unavailable Brown, Gilson R Attending Unavailable Espinoza PROGRAM SERVICES ASSISTANT, Ebony Referring Unavailable Espinoza PROGRAM SERVICES ASSISTANT, Ebony Attending Unavailable Brown, Gilson R Primary Care Unavailable Myra Alvarado Attending Unavailable Brown, Gilson R Referring Unavailable Brown, Gilson R Primary Care Unavailable Nael Miller Attending Unavailable Brown, Gilson R Referring Unavailable Brown, Gilson R Primary Care Unavailable Mollison, Jim Attending Unavailable Brown, Gilson R Referring Unavailable Brown, Gilson R Primary Care Unavailable Brown, Gilson R Referring Unavailable Modesto Finney Attending Unavailable Brown, Gilson R Primary Care Unavailable Myra Alvarado Attending Unavailable Brown, Gilson R Referring Unavailable Brown, Gilson R Primary Care Unavailable Mollsanford, Jim Referring Unavailable Mollison, Jim Consulting Unavailable Nae Winters Attending Unavailable Brown, Gilson R Primary Care Unavailable Mary PROGRAM SERVICES ASSISTANT, Abisai Primary Care Unavailable BrownTavares Attending Unavailable Espinoza PROGRAM SERVICES ASSISTANT, Ebony Referring Unavailable Espinoza PROGRAM SERVICES ASSISTANT, Ebony Consulting Unavailable Brown, Gilson R Attending Unavailable Brown, Gilson R Referring Unavailable Brown, Gilson R Primary Care Unavailable Mollison, Jim Referring Unavailable Mollison, Jim Attending Unavailable Brown, Gilson R Primary Care Unavailable Weston Caro Attending Unavailable Brown, Gilson R Referring Unavailable Brown, Gilson R Primary Care Unavailable Mollison, Jim Attending Unavailable Brown, Gilson R Referring Unavailable Brown, Gilson R Primary Care Unavailable Brown, Gilson R Attending Unavailable Brown, Gilson R Referring Unavailable Brown, Gilson R Primary Care Unavailable Brown, Gilson R Referring Unavailable JessieruWeston wlofe Attending Unavailable Brown, Gilson R Primary Care Unavailable Brown, Gilson R Referring Unavailable Brown, Gilson R Attending Unavailable Brown, Gilson R Primary Care Unavailable Roof PROGRAM SERVICES ASSISTANT, Yenny H Attending Unavailable Roof PROGRAM SERVICES ASSISTANT, Yenny H Referring Unavailable Brown, Gilson R Primary Care Unavailable Weston Caro Attending Unavailable Brown, Gilson R Referring Unavailable Brown, Gilson R Primary Care Unavailable Mary PROGRAM SERVICES ASSISTANT, Abisai Primary Care Unavailable Mary PROGRAM SERVICES ASSISTANT, Abisai Referring Unavailable Alexis PROGRAM SERVICES ASSISTANT, Ebony Attending Unavailable Mary PROGRAM SERVICES ASSISTANT, Abisai Referring Unavailable Mary PROGRAM SERVICES ASSISTANT, Abisai Primary Care Unavailable Brown, Gilson R Attending Unavailable Brown, Gilson R Referring Unavailable Weston Caro Attending Unavailable Brown, Gilson R Primary Care Unavailable Brown, Gilson R Referring Unavailable Weston Browne Attending Unavailable Brown, Gilson R Primary Care Unavailable Mollison, Jim Attending Unavailable Brown, Gilson R Referring Unavailable Brown, Gilson R Primary Care Unavailable Sanchez Kaminski Attending Unavailable Brown, Gilson R Primary Care Unavailable Myra Alvarado Attending Unavailable Brown, Gilson R Referring Unavailable Brown, Gilson R Primary Care Unavailable Brown, Glison R Attending Unavailable Brown, Gilson R Referring Unavailable Brown, Gilson R Primary Care Unavailable Mary PROGRAM SERVICES ASSISTANT, Abisai Primary Care Unavailable Alexis PROGRAM SERVICES ASSISTANT, Ebony Attending Unavailable Alexis PROGRAM SERVICES ASSISTANT, Ebony Referring Unavailable ABISAI HERNANDEZ CNP Primary Care Unavailable ABISAI HERNANDEZ CNP Consulting Unavailable ABISAI HERNANDEZ CNP Attending Unavailable ABISAI HERNANDEZ CNP Admitting Unavailable PROVIDER, UNKNOWN Consulting Unavailable PROVIDER, UNKNOWN Consulting Unavailable ABISAI HERNANDEZ CNP Consulting Unavailable ABISAI HERNANDEZ CNP Attending Unavailable ABISAI HERNANDEZ CNP Admitting Unavailable ABISAI HERNANDEZ CNP Primary Care Unavailable PROVIDER, UNKNOWN Consulting Unavailable PROVIDER, UNKNOWN Consulting Unavailable ABISAI HERNNADEZ CNP Primary Care Unavailable ABISAI HERNANDEZ CNP Consulting Unavailable ABISAI HERNANDEZ CNP Attending Unavailable ABISAI HERNANDEZ CNP Admitting Unavailable PROVIDER, UNKNOWN Consulting Unavailable PROVIDER, UNKNOWN Consulting Unavailable ABISAI HERNANDEZ CNP Primary Care Unavailable ABISAI HERNANDEZ CNP Consulting Unavailable ABISAI HERNANDEZ CNP Attending Unavailable ABISAI HERNANDEZ CNP Admitting Unavailable PROVIDER, UNKNOWN Consulting Unavailable PROVIDER, UNKNOWN Consulting Unavailable ABISAI HERNANDEZ CNP Primary Care Unavailable ABISAI HERNANDEZ CNP Consulting Unavailable ABISAI HERNANDEZ CNP Attending Unavailable ABISAI HERNANDEZ CNP Admitting Unavailable PROVIDER, UNKNOWN Consulting Unavailable PROVIDER, UNKNOWN Consulting Unavailable LATASHA MORGAN MD Primary Care Unavailabl e LATASHA MORGAN MD Attending Unavailabl e ABISAI HERNANDEZ CNP Consulting Unavailable LATASHA MORGAN MD Admitting Unavailabl e PROVIDER, UNKNOWN Consulting Unavailable PROVIDER, UNKNOWN Consulting Unavailable WESTON BROWNE JR Primary Care Unavailable WESTON BROWNE JR Attending Unavailable ABISAI HERNANDEZ CNP Consulting Unavailable WESTON BROWNE JR Admitting Unavailable PROVIDER, UNKNOWN Consulting Unavailable PROVIDER, UNKNOWN Consulting Unavailable Allergies Allergy Classification Reported Allergen(s) Allergy Type Date of Onset Reaction(s) Facility (6 sources) Bee/Wasp/Ant venom Allergy to substance swelling, lightheaded [facility] (7 sources) Bee pollen Drug Allergy 2 throat swelling [facility] (1 source) Bee pollen Drug allergy (disorder) 5 [facility] Repository NEGATED: Highlighted row has been ruled out! (1 source) Drug allergy [facility] NEGATED: Highlighted row has been ruled out! (1 source) Drug allergy [facility] NEGATED: Highlighted row has been ruled out! (1 source) Drug allergy [facility] NEGATED: Highlighted row has been ruled out! (1 source) Drug allergy [facility] NEGATED: Highlighted row has been ruled out! (1 source) Drug allergy [facility] NEGATED: Highlighted row has been ruled out! (1 source) Drug allergy [facility] Medications Current Medications Medication Drug Class(es) Dates Sig (Normalized) Sig (Original) acetaminophen 325 mg oral tablet (3 sources) Start: 02-11-2022 End: 03-10-2022 acetaminophen 325 mg oral tablet Dose : 650 mg = 2 tab(s), Oral, q4h, PRN Pain, scale 1-3, X 14 day(s), # 112 tab(s), 0 Refill(s), 03/10/22 15:41:00 EDT, Pharmacy: [id number], 185, cm, 01/27/22 8:29:00 EDT, Height, kg, 02/24/22 14:26:00 EDT, Dosing Weight Start Date: 02/24/22 Stop Date: 03/10/22 Status: Ordered Start: 02-06-2022 acetaminophen Dose : 650 mg = 2 tab(s), Oral, q4h, PRN Pain, scale 1-3, 0 Refill(s) Start Date: 02/06/22 Status: Ordered Albuterol-Budesonide (Airsup ra) 90-80 mcg/actuation HFA aerosol inhaler (20 sources) Start: 11-01-2024 Albuterol-Chester sonide (Airsupra) 90-80 mcg/actuation HFA aerosol inhaler Active 2 NMA INHALATION THREE TIMES A DAY as needed for shortness of breath 10.7 11 November 01, 2024 2:48pm as a single dose; may repeat up to 6 doses per day (12 inhalations) Start: 11-01-2024 Albuterol-Chester sonide (Airsupra) 90-80 mcg/actuation HFA aerosol inhaler Active 2 NMA INHALATION THREE TIMES A DAY as needed for shortness of breath 10.7 November 01, 2024 2:48pm as a single dose; may repeat up to 6 doses per day (12 inhalations) Start: 08-31-2024 End: 11-01-2024 Albuterol-Budesonide (Airsup ra) 90-80 mcg/actuation HFA aerosol inhaler Discontinued 2 NMA INHALATION THREE TIMES A DAY as needed for shortness of breath 10.7 August 31, 2024 11:46am November 01, 2024 2:49pm as a single dose; may repeat up to 6 doses per day (12 inhalations) Start: 08-31-2024 End: 11-01-2024 Albuterol-Budesonide (Airsup ra) 90-80 mcg/actuation HFA aerosol inhaler Discontinued 2 NMA INHALATION THREE TIMES A DAY as needed for shortness of breath 10.7 August 31, 2024 11:46am November 01, 2024 2:49pm as a single dose; may repeat up to 6 doses per day (12 inhalations) Start: 05-19-2024 End: 08-31-2024 Albuterol-Budesonide (Airsup ra) 90-80 mcg/actuation HFA aerosol inhaler Discontinued 2 NMA INHALATION THREE TIMES A DAY as needed for shortness of breath 10.7 11 May 19, 2024 1:08pm August 31, 2024 11:46am as a single dose; may repeat up to 6 doses per day (12 inhalations) Start: 05-19-2024 End: 08-31-2024 Albuterol-Budesonide (Airsup ra) 90-80 mcg/actuation HFA aerosol inhaler Discontinued 2 NMA INHALATION THREE TIMES A DAY as needed for shortness of breath 10.7 May 19, 2024 1:08pm August 31, 2024 11:46am as a single dose; may repeat up to 6 doses per day (12 inhalations) Start: 01-25-2024 End: 05-19-2024 Albuterol-Budesonide (Airsup ra) 90-80 mcg/actuation HFA aerosol inhaler Discontinued 2 NMA INHALATION THREE TIMES A DAY as needed for shortness of breath 10.7 11 January 25, 2024 12:00am May 19, 2024 1:10pm as a single dose; may repeat up to 6 doses per day (12 inhalations) Start: 01-25-2024 End: 05-19-2024 Albuterol-Budesonide (Airsup ra) 90-80 mcg/actuation HFA aerosol inhaler Discontinued 2 NMA INHALATION THREE TIMES A DAY as needed for shortness of breath 10.7 January 25, 2024 12:00am May 19, 2024 1:10pm as a single dose; may repeat up to 6 doses per day (12 inhalations) aspirin 81 mg delayed release oral tablet (6 sources) Platelet Aggregation Inhibitor, Nonsteroidal Anti-inflammatory Drug Start: 12-26-2021 aspirin 81 mg ora l delayed release tablet Dose : 81 mg = 1 tab(s), Oral, Daily, # 30 tab(s), 0 Refill(s), Pharmacy: [id number], [id number], 12/26/21 13:36:00 EDT, Height Start Date: 12/26/21 Status: Ordered atorvastatin 20 mg oral tablet (16 sources) HMG-CoA Reductase Inhibitor Start: 12-26-2021 atorvastatin 80 mg oral tablet Dose : 80 mg = 1 tab(s), Oral, qDay, # 90 tab(s), 0 Refill(s), Pharmacy: [id number], 185.4, jaydon, 12/26/21 13:36:00 EDT, Height Start Date: 12/26/21 Status: Ordered Start: 05-13-2021 End: 10-17-2024 take 1 tablet by mouth once daily in the evening Atorvastatin 20 mg tablet Active 20 mg PO EVERY EVENING 90 October 17, 2024 10:38am Blood Pressure Kit-Extra Lar ge kit (6 sources) Start: 07-26-2024 Blood Pressure Kit-Extra Large kit Active 0 .Route 1 0 July 26, 2024 1:00am As directed Start: 07-26-2024 Blood Pressure Kit-Extra Large kit Active 0 .Route 1 July 26, 2024 1:00am As directed Blood-Glucose Sensor (Freest yle Jt 3 Plus Sensor) device (6 sources) Start: 12-12-2024 Blood-Glucose Sensor (Freestyle Jt 3 Plus Sensor) device Active 0 .Route 2 December 12, 2024 12:00am Type 2 diabetes mellitus Type 2 diabetes mellitus with hyperglycemia 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 1 sensor q 15 days Start: 12-12-2024 Blood-Glucose Sensor (Freestyle Jt 3 Plus Sensor) device Active 0 .Route 2 December 12, 2024 12:00am 1 sensor q 15 days Budesonide-Formoterol (20 sources) Corticosteroid, beta2-Adrenergic Agonist Start: 05-19-2024 Budesonide-Formoterol (Symbicort) 160-4.5 mcg/actuation HFA aerosol inhaler Active 2 NMA INHALATION TWICE A DAY 3 3 May 19, 2024 1:08pm Asthma-chronic obstructive pulmonary disease overlap syndrome Chronic obstructive pulmonary disease, unspecified administer with spacer, rinse mouth after each use Start: 05-19-2024 Budesonide-For moterol (Symbicort) 160-4.5 mcg/actuation HFA aerosol inhaler Active 2 NMA INHALATION TWICE A DAY 3 May 19, 2024 1:08pm administer with spacer, rinse mouth after each use Start: 08-31-2023 End: 05-19-2024 Budesonide-Formoterol (Symbi [facility]) 160-4.5 mcg/actuation HFA aerosol inhaler Discontinued 2 NMA INHALATION TWICE A DAY 3 3 August 31, 2023 3:44pm May 19, 2024 1:10pm Asthma-chronic obstructive pulmonary disease overlap syndrome Chronic obstructive pulmonary disease, unspecified administer with spacer, rinse mouth after each use Start: 08-31-2023 End: 05-19-2024 Budesonide-Formoterol (S[facility]i [facility]) 160-4.5 mcg/actuation HFA aerosol inhaler Discontinued 2 NMA INHALATION TWICE A DAY 3 August 31, 2023 3:44pm May 19, 2024 1:10pm administer with spacer, rinse mouth after each use Start: 11-03-2022 End: 08-31-2023 Budesonide-Formoterol ([facility]) 160-4.5 mcg/actuation HFA aerosol inhaler Discontinued 2 NMA INHALATION TWICE A DAY 1 November 03, 2022 2:28pm August 31, 2023 3:46pm administer with spacer, rinse mouth after each use Start: 11-03-2022 End: 08-31-2023 Budesonide-Formoterol ([facility]) 160-4.5 mcg/actuation HFA aerosol inhaler Discontinued 2 NMA INHALATION TWICE A DAY 1 November 03, 2022 2:28pm August 31, 2023 3:46pm administer with spacer, rinse mouth after each use Start: 11-03-2022 take 1 puff(s) by [facility] twice daily Budesonide-Formoterol (Symbicort) 160-4. 5 mcg/actuation HFA aerosol inhaler Active 2 PUFF INHALATION TWICE A DAY 1 November 03, 2022 2:28pm administer with spacer, rinse mouth after each use Start: 08-07-2022 End: 11-03-2022 Budesonide-Formoterol (S[facility]i [facility]) 160-4.5 mcg/actuation HFA aerosol inhaler Discontinued 2 NMA INHALATION TWICE A DAY 1 August 07, 2022 9:12am November 03, 2022 2:28pm administer with spacer, rinse mouth after each use Start: 08-07-2022 End: 11-03-2022 Budesonide-Formoterol ([facility]) 160-4.5 mcg/actuation HFA aerosol inhaler Discontinued 2 NMA INHALATION TWICE A DAY 1 August 07, 2022 9:12am November 03, 2022 2:28pm administer with spacer, rinse mouth after each use Start: 08-07-2022 End: 11-03-2022 take 1 puff(s) by mouth twice daily Budesonide-Formoterol (Symbicort) 160-4. 5 mcg/actuation HFA aerosol inhaler Discontinued 2 PUFF INHALATION TWICE A DAY 1 August 07, 2022 9:12am November 03, 2022 2:28pm administer with spacer, rinse mouth after each use Start: 01-10-2022 End: 08-07-2022 Budesonide-Formoterol ([facility]) 160-4.5 mcg/actuation HFA aerosol inhaler Discontinued 2 NMA INHALATION TWICE A DAY 1 January 10, 2022 12:00am August 07, 2022 9:13am administer with spacer, rinse mouth after each use Start: 01-10-2022 End: 08-07-2022 Budesonide-Formoterol (S[facility]i [facility]) 160-4.5 mcg/actuation HFA aerosol inhaler Discontinued 2 NMA INHALATION TWICE A DAY 1 January 10, 2022 12:00am August 07, 2022 9:13am administer with spacer, rinse mouth after each use Start: 01-10-2022 End: 08-07-2022 take 1 puff(s) by mouth twice daily Budesonide-Formoterol (Symbicort) 160-4. 5 mcg/actuation HFA aerosol inhaler Discontinued 2 PUFF INHALATION TWICE A DAY 1 January 10, 2022 12:00am August 07, 2022 9:13am administer with spacer, rinse mouth after each use bumetanide 2 mg oral tablet (2 sources) Loop Diuretic Start: 02-06-2022 End: 02-20-2022 bumetanide 2 mg oral tablet Dose : 2 mg = 1 tab(s), Oral, Daily, Finish current course then take for an additional 7 days, # 7 tab(s), 0 Refill(s), Pharmacy: [id number], 185, cm, 01/27/22 8:29:00 EDT, Height, kg, 02/11/22 14:07:00 EDT, Dosing Weight Start Date: 02/11/22 Stop Date: 02/18/22 Status: Ordered dextromethorphan hydrobromide 3 mg/ml / promethazine hydrochloride 1.25 mg/ml oral solution (12 sources) Phenothiazine, Uncompetitive O-kgmtid-Z-aspartat e Receptor Antagonist, Sigma-1 Agonist Start: 11-01-2024 End: 01-03-2025 take 1 mL by mouth every four to six hours as needed for cough Promethazine-Dm 6.25-15 mg/5 mL syrup Active 5 mL PO EVERY 4-6 HOURS as needed for cough 473 January 03, 2025 12:24pm Dulera 200 mcg-5 mcg/inh Metered Dose Inhaler (3 sources) Start: 12-28-2020 take 2 puff(s) by mouth twice daily Dulera 200 mcg-5 mcg/inh Metered Dose Inhaler INHALE 2 PUFFS BY MOUTH TWICE DAILY Start Date: 12/28/20 Status: Ordered empagliflozin 10 mg oral tablet (13 sources) Sodium-Glucose Cotransporter 2 Inhibitor Start: 05-13-2021 End: 10-17-2024 take 1 tablet by mouth once daily Empagliflozin (Jardiance) 10 mg tablet Active 10 mg PO DAILY 90 October 17, 2024 10:39am 0.3 ml EPINEPHrine 1 mg/ml prefilled syringe (1 source) alpha-Adrenergic Agonist, beta-Adrenergic Agonist, Catecholamine Start: 05-14-2021 Epinephrine Active 0.3 MG IM every 5 to 15 minutes May 14, 2021 12:00am do not exceed 3 doses per episode Epinephrine 0.3 mg/0.3 mL syringe (6 sources) Start: 05-14-2021 Epinephrine 0.3 mg/0.3 mL syringe Active 0.3 mg IM every 5 to 15 minutes as needed for anaphylaxis May 14, 2021 12:00am do not exceed 3 doses per episode Start: 05-14-2021 Epinephrine 0. 3 mg/0.3 mL syringe Active 0.3 mg IM every 5 to 15 minutes as needed May 14, 2021 12:00am do not exceed 3 doses per episode ezetimibe 10 mg oral tablet (3 sources) Dietary Cholesterol Absorption Inhibitor Start: 04-25-2022 Zetia 10 mg oral tablet Dose : 10 mg = 1 tab(s), Oral, qDay, # 30 tab(s), 2 Refill(s), Pharmacy: [id number], 185.4, cm, 04/24/22 13:47:00 EDT, Height Start Date: 04/25/22 Status: Ordered FLUoxetine 40 mg oral capsule (13 sources) Serotonin Reuptake Inhibitor Start: 12-21-2020 take 1 capsule by mouth once daily Fluoxetine 40 mg capsule Active 40 mg PO DAILY May 13, 2021 12:00am 12 hr guaiFENesin 1200 mg extended release oral tablet (20 sources) Start: 05-19-2024 End: 08-30-2024 take 1 tablet by mouth every twelve hours as needed for congestion Guaifenesin 1,200 mg tablet extended release 12hr Active 1200 mg PO Q12H as needed for congestion August 30, 2024 10:12am Obstructive sleep apnea syndrome Obstructive sleep apnea (adult) (pediatric) Start: 08-07-2022 End: 05-19-2024 take 200 mg by mouth every four hours Guaifenesin 100 mg/5 mL liquid Discontinued 200 mg PO Q4H 473 August 07, 2022 1:00am May 19, 2024 1:16pm Start: 09-05-2021 End: 08-07-2022 take 1 tablet by mouth every twelve hours Guaifenesin 1,200 mg tablet extended release 12hr Discontinued 1200 mg PO Q12H 60 September 05, 2021 1:00am August 07, 2022 9:19am handicap placard (6 sources) Start: 11-30-[address] Active 0 .Route .MEDSUPPLY 1 0 November 30, 2024 12:00am Duration 5 years, hip pain causing the disablilty. Start: 11-30-[address] Active 0 .Route .MEDSUPPLY 1 November 30, 2024 12:00am Duration 5 years, hip pain causing the disablilty. ibuprofen 200 mg oral tablet (2 sources) Nonsteroidal Anti-inflammatory Drug Start: 02-11-2022 End: 03-10-2022 ibuprofen 200 mg oral tablet Dose : 400 mg = 2 tab(s), Oral, q6h, PRN for pain, Take with food or milk., X 14 day(s), # 112 tab(s), 0 Refill(s), 03/10/22 15:41:00 EDT, Pharmacy: [id number], 185, cm, 01/27/22 8:29:00 EDT, Height, kg, 02/24/22 14:26:00 EDT, Dosing Weight Start Date: 02/24/22 Stop Date: 03/10/22 Status: Ordered 3 ml insulin aspart, human 100 unt/ml pen injector (6 sources) Insulin Analog Start: 10-31-2024 Insulin Aspart U-100 (Novolog Flexpen U-100 Insulin) 100 unit/mL (3 mL) insulin pen Active 25 U SC THREE TIMES A DAY 22.5 5 October 31, 2024 1:00am Type 2 diabetes mellitus Type 2 diabetes mellitus without complications 3 ml insulin glargine 100 unt/ml pen injector (20 sources) Insulin Analog Start: 07-20-2024 End: 03-20-2025 Insulin Glargine (Lantus Solostar U-100 Insulin) 100 unit/mL (3 mL) insulin pen Active 25 U SC TWICE A DAY 15 March 20, 2025 8:42am Start: 07-20-2024 End: 07-20-2024 Insulin Glargine (Lantus Lashawn ostar U-100 Insulin) 100 unit/mL (3 mL) insulin pen Discontinued 20 U SC TWICE A DAY 15 July 20, 2024 12:00am July 20, 2024 10:21am Start: 02-06-2022 inject 1 dose by sub cutaneous injection twice daily Lantus Solostar Pen 100 units/mL 3 mL Pen Dose : 20 unit(s) =, Subcutaneous, BID, # 15 mL, 0 Refill(s), Pharmacy: [facility], 185, cm, 01/27/22 8:29:00 EDT, Height, kg, 02/06/22 4:47:00 EDT, Dosing Weight Start Date: 02/06/22 Status: Ordered Lidocaine (6 sources) Antiarrhythmic, Amide Local Anesthetic Start: 08-30-2024 Lidocaine (Salonpas (Lidocaine)) 4 % adhesive patch,medicated Active 2 NMA TOPICAL daily as needed for pain 20 03August 30, 2024 1:00am Start: 08-30-2024 Lidocaine (Jimbo onpas (Lidocaine)) 4 % adhesive patch,medicated Active 2 NMA TOPICAL daily as needed for pain August 30, 2024 1:00am lisinopril 20 mg oral tablet (13 sources) Angiotensin Converting Enzyme Inhibitor Start: 05-13-2021 End: 10-17-2024 take 1 tablet by mouth once daily Lisinopril 20 mg tablet Active 20 mg PO DAILY 90 October 17, 2024 10:39am magnesium oxide 400 mg oral tablet (6 sources) Start: 08-30-2024 take 1 tablet by mouth at bedtime Magnesium Oxide 400 mg (241.3 mg magnesium) tablet Active 400 mg PO AT BEDTIME 20 03August 30, 2024 1:00am metFORMIN hydrochloride 1000 mg oral tablet (19 sources) Biguanide Start: 10-31-2024 take 1 tablet by mouth twice daily Metformin 1,000 mg tablet Active 1000 mg PO TWICE A DAY 180 October 31, 2024 3:54pm Type 2 diabetes mellitus Type 2 diabetes mellitus without complications Start: 02-06-2022 MetFORMIN (Eqv -Glucophage XR) 500 mg oral tablet, EXTENDED RELEASE Dose : 1,000 mg = 2 tab(s), Oral, BID, # 360 tab(s), 0 Refill(s), Pharmacy: [facility], 185, cm, 01/27/22 8:29:00 EDT, Height, kg, 02/06/22 4:47:00 EDT, Dosing Weight Start Date: 02/06/22 Status: Ordered Start: 05-13-2021 End: 08-31-2024 take 1 tablet by mouth twice daily Metformin 1,000 mg tablet Discontinued 1000 mg PO TWICE A DAY May 13, 2021 12:00am August 31, 2024 11:43am 24 hr metoprolol succinate 25 mg extended release oral tablet (15 sources) beta-Adrenergic Amando Start: 10-17-2024 take 1 tablet by mouth once daily Metoprolol Succinate 25 mg tablet extended release 24 hr Active 25 mg PO daily 90 October 17, 2024 1:00am Start: 02-06-2022 End: 02-06-2022 Toprol-XL Start: 02/06/22 8: 00:00 EDT, Dose = 25 mg, = 1 tab(s), Oral, Hold if SBP (mmHg) Start Date: 02/06/22 Stop Date: 02/06/22 Status: Completed Start: 02-05-2022 End: 02-05-2022 Toprol-XL Start: 02/05/22 8: 00:00 EDT, Dose = 25 mg, = 1 tab(s), Oral, Hold if SBP (mmHg) Start Date: 02/05/22 Stop Date: 02/05/22 Status: Completed Start: 02-04-2022 End: 02-04-2022 Toprol-XL Start: 02/04/22 8: 00:00 EDT, Dose = 25 mg, = 1 tab(s), Oral, Hold if SBP (mmHg) Start Date: 02/04/22 Stop Date: 02/04/22 Status: Completed Start: 12-23-2021 metoprolol suc cinate 25 mg oral TABLET extended release Dose : 25 mg = 1 tab(s), Oral, qDay, Do not crush or chew (controlled release), # 30 tab(s), 0 Refill(s) Start Date: 12/23/21 Status: Ordered montelukast 10 mg oral tablet (20 sources) Leukotriene Receptor Antagonist Start: 09-07-2024 take 1 tablet by mouth once daily in the evening Montelukast 10 mg tablet Active 10 mg PO EVERY EVENING 90 September 07, 2024 11:51am Tobacco abuse Tobacco use Start: 12-21-2020 End: 08-31-2024 take 1 tablet by mouth once daily in the evening Montelukast 10 mg tablet Discontinued 10 mg PO EVERY EVENING 90 August 31, 2023 3:45pm August 31, 2024 11:43am Tobacco abuse Tobacco use take 1 tablet by aftab once daily SINGULAIR 10 MG TABS One tablet by mouth daily MONTELUKAST SODIUM [id number] Annabel Collins naproxen 500 mg oral tablet (6 sources) Nonsteroidal Anti-inflammatory Drug Start: 11-01-2024 take 1 tablet by mouth twice daily Naproxen 500 mg tablet Active 500 mg PO TWICE A DAY 60 2 November 01, 2024 1:00am 24 hr nicotine 0.583 mg/hr transdermal system (3 sources) Cholinergic Nicotinic Agonist Start: 02-06-2022 End: 03-01-2022 apply 1 dose transdermal route every twenty-four hours Nicoderm CQ patch 14-7mg TAPER (Disch Rx) Dose = 1 patch(es), Transdermal, q24h, # 21 patch(es), 0 Refill(s), 185, cm, 01/27/22 8:29:00 EDT, Height Start Date: 02/06/22 Stop Date: 03/01/22 Status: Ordered Nicotine (Polacrilex) 4 mg lozenge (3 sources) Start: 03-21-2025 Nicotine (Polacrilex) 4 mg lozenge Active 4 mg BUCCAL Q8H as needed for nicotine cravings 72 1 March 21, 2025 12:00am nitroglycerin 0.4 mg sublingual tablet (7 sources) Nitrate Vasodilator Start: 01-08-2022 Nitroglycerin 0.4 mg tablet, sublingual Active 0.4 mg BUCCAL every 5 to 15 minutes as needed for chest pain January 08, 2022 12:00am Start: 01-08-2022 Nitroglycerin Active 0.4 MG BUCCAL every 5 to 15 minutes January 08, 2022 12:00am oxymetazoline hydrochloride 0.5 mg/ml nasal spray (6 sources) Start: 02-22-2025 Oxymetazoline (Afrin (Oxymetazoline)) 0.05 % spray,non-aerosol Active 3 NMA INTRANASAL Q12H as needed for nasal congestion February 22, 2025 12:00am pantoprazole 40 mg delayed release oral tablet (6 sources) Proton Pump Inhibitor Start: 02-22-2025 take 1 tablet by mouth once daily Pantoprazole 40 mg tablet,delayed release (DR/EC) Active 40 mg PO daily 30 3 February 22, 2025 12:00am Pen needles 5 mm (6 sources) Start: 02-06-2022 Pen needles 5 mm See Instructions, Insulin administration 2 times daily qs for 1 month supply, # 1 EA, 0 Refill(s), Pharmacy: [facility], Diabetes mellitus Hgb A1c 10.6%, 185, cm, 01/27/22 8:29:00 EDT, Height, 105.7, kg, 02/06/22 4:47:00 EDT, Dosing Weight Start Date: 02/06/22 Status: Ordered potassium chloride 20 meq oral tablet (2 sources) Start: 02-06-2022 End: 02-20-2022 potassium chloride 20 mEq oral tablet, extended release Dose : 20 mEq = 1 tab(s), Oral, TIDM, Finish current course then take for an additional 7 days, # 21 tab(s), 0 Refill(s), Pharmacy: [id number], 185, cm, 01/27/22 8:29:00 EDT, Height, kg, 02/11/22 14:07:00 EDT, Dosing Weight Start Date: 02/11/22 Stop Date: 02/18/22 Status: Ordered Pulse ox meter (6 sources) Start: 07-26-2024 Pulse ox meter Active 0 .Route .MEDSUPPLY 1 0 July 26, 2024 1:00am As directed Start: 07-26-2024 Pulse ox meter Active 0 .Route .MEDSUPPLY July 26, 2024 1:00am As directed rosuvastatin calcium 40 mg oral tablet (3 sources) HMG-CoA Reductase Inhibitor Start: 04-25-2022 Crestor 40 mg oral tablet Dose : 40 mg = 1 tab(s), Oral, Daily, # 30 tab(s), 3 Refill(s), Pharmacy: [id number], 185.4, cm, 04/24/22 13:47:00 EDT, Height Start Date: 04/25/22 Status: Ordered spacer (6 sources) Start: 07-21-2024 spacer Active 0 .ROUTE .MEDSUPPLY 1 0 July 21, 2024 12:00am As directed Start: 07-21-2024 spacer Active 0 .ROUTE .MEDSUPPLY July 21, 2024 12:00am As directed Tirzepatide (Mounjaro) 2.5 mg/0.5 mL pen injector (9 sources) Start: 03-02-2025 Tirzepatide (M ounjaro) 2.5 mg/0.5 mL pen injector Active 2.5 mg SC EVERY WEEK 2 3 March 02, 2025 12:00am Type 2 diabetes mellitus Type 2 diabetes mellitus with hyperglycemia 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 for 4 weeks Start: 10-31-2024 End: 11-21-2024 Tirzepatide (Mounjaro) 2.5 m g/0.5 mL pen injector Discontinued 2.5 mg SC EVERY WEEK 2 4 October 31, 2024 1:00am November 21, 2024 1:57pm Type 2 diabetes mellitus Type 2 diabetes mellitus without complications for 4 weeks Start: 10-31-2024 End: 11-21-2024 Tirzepatide (Mounjaro) 2.5 m g/0.5 mL pen injector Discontinued 2.5 mg SC EVERY WEEK 2 October 31, 2024 1:00am November 21, 2024 1:57pm for 4 weeks tiZANidine 4 mg oral capsule (6 sources) Central alpha-2 Adrenergic Agonist Start: 02-22-2025 take 1 capsule by mouth every eight hours as needed Tizanidine 4 mg capsule Active 4 mg PO Q8H as needed for muscle spasticity 60 February 22, 2025 12:00am Chantix (18 sources) Partial Cholinergic Nicotinic Agonist Start: 02-24-2022 Chantix Oral, BID, 0 Refill(s) Start Date: 02/24/22 Status: Ordered Start: 01-08-2022 End: 08-31-2023 take 1 tablet by mouth twice daily, then take 1 tablet by mouth once Varenicline Tartrate (Chantix Continuing Month Box) 1 mg tablet Discontinued 1 mg PO TWICE A DAY 56 2 January 08, 2022 12:00am August 31, 2023 3:29pm Start: 01-08-2022 End: 08-31-2023 take 1 tablet by mouth once Varenicline Tartrate (Garcia tix Starting Month Box) 0.5 mg (11)- 1 mg (42) tablets,dose pack Discontinued 0 PO per package directions 53 0 January 08, 2022 12:00am August 31, 2023 3:29pm PO PER PKG DIR Vitamin B Complex capsule (6 sources) Start: 09-05-2024 Vitamin B Comp doris capsule Active 1 NMA PO daily 30 September 05, 2024 1:00am Start: 09-05-2024 Vitamin B Comp doris capsule Active 1 NMA PO daily September 05, 2024 1:00am Completed/Discontinued Medications Medication Drug Class(es) Dates Sig (Normalized) Sig (Original) albuterol 0.83 mg/ml inhalation solution (20 sources) beta2-Adrenergic Agonist Start: 01-08-2022 End: 05-19-2024 Albuterol Sulfate (Proventil Hfa) 90 mcg/actuation HFA aerosol inhaler Discontinued 2 NMA INHALATION EVERY 6 HOURS 8.5 January 05, 2023 1:05pm August 31, 2023 3:46pm Start: 01-08-2022 End: 11-03-2022 Albuterol Sulfate (Proventil Hfa) 90 mcg/actuation HFA aerosol inhaler Active 2 INH INHALATION EVERY 6 HOURS 8.November 03, 2022 2:28pm Start: 09-05-2021 End: 01-08-2022 Albuterol Sulfate (Proventil Hfa) 90 mcg/actuation HFA aerosol inhaler Discontinued 2 NMA INHALATION ONCE 8.5 September 05, 2021 1:00am January 08, 2022 9:28am Start: 09-05-2021 End: 01-08-2022 Albuterol Sulfate (Proventil Hfa) 90 mcg/actuation HFA aerosol inhaler Discontinued 2 INH INHALATION ONCE 8.5 September 05, 2021 1:00am January 08, 2022 9:28am Start: 05-17-2021 End: 05-19-2024 take 2.5 mg by inhalation every four hours as needed for wheezing Albuterol Sulfate 2.5 mg /3 mL (0.083 %) solution for nebulization Discontinued 2.5 mg INHALATION Q4H as needed for SOB/ Wheezing 180 0 March 21, 2024 10:38am May 19, 2024 1:08pm Poorly controlled persistent asthma Other asthma Start: 05-13-2021 End: 05-17-2021 take 5 mg by inhalation every six hours Albuterol Sulfate 2.5 mg/0.5 mL solution for nebulization Discontinued 5 mg INHALATION EVERY 6 HOURS 30 6 May 17, 2021 9:36am May 17, 2021 11:23am Start: 05-13-2021 End: 09-05-2021 Albuterol Sulfate (Proair Hf a) 90 mcg/actuation HFA aerosol inhaler Discontinued 2 NMA INHALATION EVERY 6 HOURS as needed for shortness of breath or wheezing 8.5 3 May 17, 2021 9:36am September 05, 2021 10:45am Start: 05-13-2021 End: 09-05-2021 take 1 puff(s) by inhalation every six hours Albuterol Sulfate (Proair Hfa) 90 mcg/actuation HFA aerosol inhaler Discontinued 2 PUFF INHALATION EVERY 6 HOURS 8.5 May 17, 2021 9:36am September 05, 2021 10:45am Start: 12-21-2020 take 1 mL by inhalat ion every six hours albuterol 2.5 mg/3 mL (0.083%) inhalation solution See Instructions, mL mg Nebulized q6hr, 0 Refill(s) Start Date: 12/21/20 Status: Ordered Start: 12-21-2020 take 2 puff(s) by in halation every four hours as needed for wheezing ProAir HFA MDI (90 mcg/inh) inhalation aerosol 2 puff(s), Inhalation, q4h, PRN as needed for wheezing, # 8.5 gram(s), 0 Refill(s) Start Date: 12/21/20 Status: Ordered Start: 06-24-2016 take 1 dose by inhal ation every four hours as needed for wheezing ALBUTEROL SULFATE 0.63 MG/3ML NEBU One vial INH q 4 hours PRN wheezing ALBUTEROL SULFATE [id number] Ebony Espinoza PERSONNEL GENERALIST MANAGER Start: 10-31-2015 take 2 puff(s) by in halation every four to six hours as needed for wheezing PROAIR HFA 108 (90 Base) MCG/ACT AERS 2 puffs INH q 4-6 hours PRN Wheezing ALBUTEROL SULFATE [id number] Ebony Espinoza PERSONNEL GENERALIST MANAGER Start: 03-14-2015 PROVENTIL HFA 108 (90 Base) MCG/ACT AERS 2 puffs every 4 hours ALBUTEROL SULFATE [id number] Ebony Espinoza PERSONNEL GENERALIST MANAGER Start: 03-13-2015 End: 03-14-2015 PROAIR HFA 108 (90 Base) MCG /ACT AERS ALBUTEROL SULFATE [id number] Annabel Collins ALBUTEROL SULFAT E (2.5 MG/3ML) 0.083% NEBU 1 inhalation Q 4-6 H ALBUTEROL SULFATE [id number] Annabel Collins End: 10-31-2015 VENTOLIN HFA 108 (90 Base) M CG/ACT AERS q 4 hrs prn ALBUTEROL SULFATE [id number] Suzie Ken VENDING ENTERPRISES SUPERVISOR albuterol 0.833 mg/ml / ipratropium bromide 0.167 mg/ml inhalation solution (20 sources) Anticholinergic, beta2-Adrenergic Agonist Start: 05-13-2021 End: 03-21-2025 take 1 mL by inhalation every four hours as needed for wheezing Ipratropium-Albuterol 0.5 mg-3 mg(2.5 mg base)/3 mL solution for nebulization Discontinued 3 mL INHALATION EVERY 4 HOURS NEEDED as needed for SOB &/OR WHEEZING 180 6 December 27, 2024 2:22pm February 22, 2025 10:49am Start: 05-13-2021 End: 08-25-2022 take 1 mL by inhalation every four hours Ipratropium-Albuterol Active 3 ML INHALATION Q4H 180 August 25, 2022 7:14am benzonatate 200 mg oral capsule (17 sources) Non-narcotic Antitussive Start: 02-20-2022 End: 07-20-2024 take 1 capsule by mouth three times daily as needed for cough Benzonatate 200 mg capsule Discontinued 200 mg PO THREE TIMES A DAY as needed for cough 90 0 August 31, 2023 3:45pm July 20, 2024 9:48am Asthma-chronic obstructive pulmonary disease overlap syndrome Chronic obstructive pulmonary disease, unspecified Blood-Glucose,Rece iver,Cont (Dexcom G6 Caption Writer) misc (6 sources) Start: 07-26-2024 End: 08-31-2024 Blood-Glucose,Receiv er,Cont (Dexcom G6 Caption Writer) misc Discontinued 0 .Route 1 0 July 26, 2024 1:00am August 31, 2024 11:30am As directed Start: 07-26-2024 End: 08-31-2024 Blood-Glucose,Caption Writer,Cont (Dexcom G6 Caption Writer) misc Discontinued 0 .Route 1 July 26, 2024 1:00am August 31, 2024 11:30am As directed Blood-Glucose,Caption Writer,Cont (Dexcom G7 Caption Writer) misc (12 sources) Start: 08-31-2024 End: 12-12-2024 Blood-Glucose,Caption Writer,Cont (Dexcom G7 Caption Writer) misc Discontinued 0 .Route 1 0 August 31, 2024 11:30am December 12, 2024 2:07pm As directed Start: 08-31-2024 End: 12-12-2024 Blood-Glucose,Caption Writer,Cont (Dexcom G7 Caption Writer) misc Discontinued 0 .Route 1 August 31, 2024 11:30am December 12, 2024 2:07pm As directed Start: 07-26-2024 End: 08-31-2024 Blood-Glucose,Caption Writer,Cont (Dexcom G7 Caption Writer) misc Discontinued 0 .Route 1 0 July 26, 2024 1:00am August 31, 2024 11:30am As directed Start: 07-26-2024 End: 08-31-2024 Blood-Glucose,Caption Writer,Cont (Dexcom G7 Caption Writer) misc Discontinued 0 .Route 1 July 26, 2024 1:00am August 31, 2024 11:30am As directed Eafrvoftbw-Xbtsbdup-Fqmbayjp ol (7 sources) Corticosteroid, beta2-Adrenergic Agonist Start: 09-05-2021 End: 01-10-2022 Fscuzkayzi-Nnhydgcd-Jshxnjee ol (Breztri Aerosphere) 160-9-4.8 mcg/actuation HFA aerosol inhaler Discontinued 2 NMA INHALATION TWICE A DAY 10.7 6 September 05, 2021 1:00am January 10, 2022 2:25pm Start: 09-05-2021 End: 01-10-2022 Wqpdadsvyv-Ekgkhdne-Agdxvmjk ol (Breztri Aerosphere) 160-9-4.8 mcg/actuation HFA aerosol inhaler Discontinued 2 NMA INHALATION TWICE A DAY 10.7 September 05, 2021 1:00am January 10, 2022 2:25pm Start: 09-05-2021 End: 01-10-2022 Wwxunpmkre-Csyjxvoy-Isrwjsag ol (Breztri Aerosphere) 160-9-4.8 mcg/actuation HFA aerosol inhaler Discontinued 2 INH INHALATION TWICE A DAY 10.7 September 05, 2021 1:00am January 10, 2022 2:25pm cetirizine hydrochloride 10 mg oral tablet (20 sources) Histamine-1 Receptor Antagonist Start: 12-21-2020 End: 05-19-2024 take 1 tablet by mouth once daily Cetirizine 10 mg tablet Discontinued 10 mg PO DAILY 90 3 August 31, 2023 3:44pm May 19, 2024 1:10pm Asthma-chronic obstructive pulmonary disease overlap syndrome Chronic obstructive pulmonary disease, unspecified cyclobenzaprine hydrochloride 10 mg oral tablet (20 sources) Muscle Relaxant Start: 12-28-2020 End: 02-22-2025 take 1 tablet by mouth twice daily as needed for muscle spasms Cyclobenzaprine 10 mg tablet Discontinued 10 mg PO TWICE A DAY as needed for muscle spasm 60 1 August 31, 2024 11:29am February 22, 2025 10:46am Start: 08-11-2016 take 1 tablet by aftab th twice daily as needed CYCLOBENZAPRINE HCL 10 MG TABS 1 po twice daily prn CYCLOBENZAPRINE HCL [id number] Lino Agustin Dulaglutide (18 sources) GLP-1 Receptor Agonist Start: 11-21-2024 End: 03-02-2025 Dulaglutide (Trulicity) 4.5 mg/0.5 mL pen injector Discontinued 4.5 mg SC EVERY WEEK 2 November 21, 2024 1:56pm March 02, 2025 2:34pm Type 2 diabetes mellitus Type 2 diabetes mellitus with hyperglycemia 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 Start: 11-21-2024 Dulaglutide (T rulicity) 4.5 mg/0.5 mL pen injector Active 4.5 mg SC EVERY WEEK November 21, 2024 1:56pm Start: 11-10-2024 End: 11-21-2024 Dulaglutide (Trulicity) 4.5 mg/0.5 mL pen injector Discontinued 4.5 mg SC EVERY WEEK 2 November 10, 2024 1:00am November 21, 2024 1:56pm Start: 11-10-2024 End: 11-21-2024 Dulaglutide (Trulicity) 4.5 mg/0.5 mL pen injector Discontinued 4.5 mg SC EVERY WEEK 2 November 10, 2024 1:00am November 21, 2024 1:56pm Start: 08-20-2024 End: 10-31-2024 Dulaglutide (Trulicity) 4.5 mg/0.5 mL pen injector Discontinued 4.5 mg SC EVERY WEEK 2 2 August 20, 2024 1:00am October 31, 2024 3:57pm Start: 08-20-2024 End: 10-31-2024 Dulaglutide (Trulicity) 4.5 mg/0.5 mL pen injector Discontinued 4.5 mg SC EVERY WEEK 2 August 20, 2024 1:00am October 31, 2024 3:57pm 120 actuat fluticasone propionate 0.22 mg/actuat metered dose inhaler (20 sources) Corticosteroid Start: 09-17-2021 End: 08-31-2023 Fluticasone Propionate (Flovent Hfa) 220 mcg/actuation HFA aerosol inhaler Discontinued 2 NMA INHALATION TWICE A DAY 12 September 17, 2021 1:00am August 31, 2023 3:28pm administer with spacer Start: 09-17-2021 take 1 puff(s) by in halation twice daily Fluticasone Propionate (Flovent Hfa) 220 mcg/actuation HFA aerosol inhaler Active 2 PUFF INHALATION TWICE A DAY September 17, 2021 1:00am administer with spacer Start: 05-13-2021 End: 05-19-2024 take 50 ug nasal route twice daily Fluticasone Propionate (Flonase Allergy Relief) 50 mcg/actuation spray,suspension Discontinued 1 NMA INTRANASAL TWICE A DAY 06 03May 17, 2021 9:36am August 31, 2023 3:46pm administer into each nostril Start: 05-13-2021 End: 05-17-2021 take 1 spray(s) nasal route twice daily Fluticasone Propionate (Flonase Allergy Relief) 50 mcg/actuation spray,suspension Active 1 SPRAY INTRANASAL TWICE A DAY May 17, 2021 9:36am administer into each nostril Start: 12-21-2020 take 1 dose nasal ro rody once daily in the morning Flonase 50 mcg/inh nasal spray Dose = 2 spray(s), Nostril, each, qAM, 0 Refill(s) Start Date: 12/21/20 Status: Ordered 14 actuat fluticasone propionate 0.5 mg/actuat / salmeterol 0.05 mg/actuat dry powder inhaler (1 source) Corticosteroid, beta2-Adrenergic Agonist Start: 03-14-2015 take 1 puff(s) by inhalation twice daily ADVAIR DISKUS 500-50 MCG/DOSE AEPB 1 puff inh Twice daily FLUTICASONE-SALMETEROL [id number] Ebony Espinoza PERSONNEL GENERALIST MANAGER 30 actuat fluticasone furoate 0.1 mg/actuat / vilanterol 0.025 mg/actuat dry powder inhaler (7 sources) Corticosteroid, beta2-Adrenergic Agonist Start: 05-13-2021 End: 05-14-2021 Fluticasone Furoate-Vilanterol (Breo Ellipta) 100-25 mcg/dose blister with device Discontinued 1 NMA INHALATION DAILY May 13, 2021 12:00am May 14, 2021 1:28pm Start: 05-13-2021 End: 05-14-2021 Fluticasone Furoate-Vilanter ol (Breo Ellipta) 100-25 mcg/dose blister with device Discontinued 1 INH INHALATION DAILY May 13, 2021 12:00am May 14, 2021 1:28pm 120 actuat formoterol fumarate 0.0048 mg/actuat / glycopyrrolate 0.009 mg/actuat metered dose inhaler (7 sources) beta2-Adrenergic Agonist Start: 09-17-2021 End: 01-08-2022 Glycopyrrolate-Formoterol (Bevespi Aerosphere) 9-4.8 mcg HFA aerosol inhaler Discontinued 2 NMA INHALATION every day in the morning and in the evening 09 23September 17, 2021 1:00am January 08, 2022 9:17am Start: 09-17-2021 End: 01-08-2022 Glycopyrrolate-Formoterol (B evespi Aerosphere) 9-4.8 mcg HFA aerosol inhaler Discontinued 2 PUFF INHALATION every day in the morning and in the evening September 17, 2021 1:00am January 08, 2022 9:17am 120 actuat formoterol fumarate 0.005 mg/actuat / mometasone furoate 0.2 mg/actuat metered dose inhaler (14 sources) Corticosteroid, beta2-Adrenergic Agonist Start: 05-14-2021 End: 09-05-2021 Mometasone-Formoterol (Dulera) 200-5 mcg/actuation HFA aerosol inhaler Discontinued 2 NMA INHALATION TWICE A DAY 13 3 May 14, 2021 1:35pm September 05, 2021 10:44am Tobacco abuse Poorly controlled persistent asthma Tobacco use Other asthma Start: 05-14-2021 End: 09-05-2021 take 1 puff(s) by inhalation twice daily Mometasone-Formoterol (Dulera) 200-5 mcg/actuation HFA aerosol inhaler Discontinued 2 PUFF INHALATION TWICE A DAY May 14, 2021 1:35pm September 05, 2021 10:44am gabapentin 300 mg oral capsule (6 sources) Anti-epileptic Agent Start: 06-20-2022 gabapenti n 300 mg oral capsule Dose : 300 mg = 1 cap(s), Oral, TID, 0 Refill(s), 113.4 Start Date: 06/20/22 Status: Ordered Start: 12-23-2021 gabapentin 100 mg oral capsule Dose : 200 mg = 2 cap(s), Oral, TID, # 180 cap(s), 0 Refill(s), 114.8 Start Date: 12/23/21 Status: Ordered glipiZIDE 10 mg oral tablet (7 sources) Sulfonylurea Start: 05-13-2021 End: 12-12-2024 take 1 tablet by mouth once daily Glipizide 10 mg tablet Discontinued 10 mg PO DAILY May 13, 2021 12:00am December 12, 2024 1:51pm methylPREDNISolone 4 mg oral tablet (1 source) Corticosteroid Start: 08-11-2016 METHYLPREDNISOLONE 4 MG TABS take as directed METHYLPREDNISOLONE [id number] Lino Agustin polyethylene glycol 3350 89418 mg powder for oral solution (13 sources) Osmotic Laxative Start: 05-14-2021 End: 08-30-2024 take 17 g by mouth once daily as needed Polyethylene Glycol 3350 17 gram/dose powder Discontinued 17 g PO DAILY as needed July 20, 2024 9:50am August 30, 2024 10:13am pregabalin 200 mg oral capsule (20 sources) Start: 07-20-2024 End: 02-01-2025 take 1 capsule by mouth three times daily Pregabalin (Lyrica) 200 mg capsule Discontinued 200 mg PO THREE TIMES A DAY 90 2 August 09, 2024 11:46am November 01, 2024 2:30pm terbinafine 250 mg oral tablet (1 source) Allylamine Antifungal take 1 tablet by mouth once daily TERBINAFINE HCL 250 MG TABS One tablet by mouth daily TERBINAFINE HCL [id number] Annabel Collins 60 actuat tiotropium 0.0025 mg/actuat inhalation spray (20 sources) Anticholinergic Start: 01-10-2022 End: 05-19-2024 take 2.5 ug by inhalation once daily Tiotropium [place] (Spiriva Respimat) 2.5 mcg/actuation mist Discontinued 2 NMA INHALATION daily 3 3 August 31, 2023 3:45pm May 19, 2024 1:10pm Asthma-chronic obstructive pulmonary disease overlap syndrome Chronic obstructive pulmonary disease, unspecified administer at approximately the same time(s) each day Start: 01-10-2022 take 1 puff(s) by in halation once daily Tiotropium [place] (Spiriva Respimat) 2.5 mcg/actuation mist Active 2 PUFF INHALATION daily January 10, 2022 12:00am administer at approximately the same time(s) each day Start: 12-23-2021 Spiriva Respim at 10 ACT 2.5 mcg/inh inhalation aerosol 2 puff(s), Inhalation, qDay, 0 Refill(s) Start Date: 12/23/21 Status: Ordered Start: 05-14-2021 End: 09-05-2021 take 2.5 ug by inhalation once daily Tiotropium [place] (Spiriva Respimat) 2.5 mcg/actuation mist Discontinued 2 NMA INHALATION DAILY May 14, 2021 12:00am September 05, 2021 10:44am Start: 05-14-2021 End: 09-05-2021 take 1 puff(s) by inhalation once daily Tiotropium [place] (Spiriva Respimat) 2.5 mcg/actuation mist Discontinued 2 PUFF INHALATION DAILY May 14, 2021 12:00am September 05, 2021 10:44am traMADol hydrochloride 50 mg oral tablet (10 sources) Opioid Agonist Start: 02-20-2022 End: 08-30-2024 take 1 tablet by mouth every six hours as needed Tramadol 50 mg tablet Discontinued 50 mg PO EVERY 6 HOURS as needed February 20, 2022 12:00am August 30, 2024 10:14am Start: 02-11-2022 End: 02-18-2022 traMADol 50 mg oral tablet D ose : 50 mg = 1 tab(s), Oral, q6h, PRN Pain, scale 7-10, X 7 day(s), # 28 tab(s), 0 Refill(s), 02/18/22 15:06:00 EDT, Pharmacy: [id number], Acute postoperative pain, 185, cm, 01/27/22 8:29:00 EDT, Height, 102.3 Start Date: 02/11/22 Stop Date: 02/18/22 Status: Ordered Start: 02-06-2022 End: 02-09-2022 Ultram 50 mg oral tablet Dos e : 50 mg = 1 tab(s), Oral, q6hr, PRN Pain, scale 4-6, X 3 day(s), # 12 tab(s), 0 Refill(s), 02/09/22 9:10:00 EDT, Acute post-operative pain, 185, cm, 01/27/22 8:29:00 EDT, Height, 105.7 Start Date: 02/06/22 Stop Date: 02/09/22 Status: Ordered Problems Active Problems Problem Classification Problem Date Documented Date Episodic/Chronic Acute myocardial infarction (7 sources) Myocardial infarction; Translations: [Non-ST elevation (NSTEMI) myocardial infarction] Onset: 2 12-27-2021 Chronic Comment on above: signed out ama from ER Acute posthemorrhagic anemia (2 sources) Acute posthemorrhagic anemia; Translations: [Acute posthemorrhagic anemia] Onset: 2 Episodic Anxiety disorders (7 sources) Anxiety; Translations: [Anxiety disorder, unspecified] 05-13-2021 Chronic Asthma (19 sources) Moderate persistent asthma; Translations: [Asthma] Onset: 6 10-31-2015 Chronic Comment on above: FEV1 49% Chronic obstructive pulmonary disease and bronchiectasis (14 sources) Chronic obstructive lung disease; Translations: [Chronic obstructive pulmonary disease, unspecified] Onset: 4 Chronic Complications of surgical procedures or medical care (6 sources) Complication after wiring of sternum; Translations: [Dehiscence of surgical wound] 06-20-2022 Episodic Coronary atherosclerosis and other heart disease (20 sources) Coronary atherosclerosis; Translations: [Atherosclerotic heart disease of samish coronary artery without angina pectoris] Onset: 2 Chronic Diabetes mellitus with complications (20 sources) Neuropathy due to diabetes mellitus; Translations: [Diabetes mellitus due to underlying condition with diabetic neuropathy, unspecified] Onset: 4 12-14-2024 Chronic Comment on above: Patient has painful diabetic peripheral neuropathy both feet longstanding refractory to most management issues12/14/2024: Patient has continued painful diabetic peripheral neuropathy. He did get some response with Lidoderm patches but it did not last long enough. Patient has much better glucose control at this time. He would need to continue for 3 to 6 months of good diabetic control before he may see a change in his neuropathy. He is being off balance dizzy will be deferred in his memory deficit will be deferred until he can achieve better diabetic control over matter of months. These abnormalities may improve with good glucose control over the next 3 to 6 months as well. Diabetes mellitus with complications (6 sources) Diabetes mellitus with complications Diabetes mellitus without complication (20 sources) Type 2 diabetes mellitus without complication; Translations: [Type 2 diabetes mellitus without complications] Onset: 2 Chronic Diabetes mellitus without complication (7 sources) Hyperglycemia; Translations: [Hyperglycemia, unspecified] 05-13-2021 Episodic Disorders of lipid metabolism (20 sources) Hyperlipidemia; Translations: [Hyperlipidemia, unspecified] Onset: 2 Chronic Esophageal disorders (18 sources) Gastroesophageal reflux disease; Translations: [Gastro-esophageal reflux disease without esophagitis] 12-12-2024 Chronic Essential hypertension (20 sources) Essential hypertension; Translations: [Essential (primary) hypertension] Onset: 2 Chronic Other aftercare (1 source) Long-term current use of drug therapy; Translations: [FDC (current) use of antithrombotics/antipla telets] Episodic Other aftercare (1 source) FDC (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; Translations: [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] Onset: 5 Episodic Other and ill-defined heart disease (1 source) Cardiomegaly; Translations: [Cardiomegaly] Onset: 5 Chronic Other connective tissue disease (7 sources) H/O: musculoskeletal disease; Translations: [Personal history of other diseases of the musculoskeletal system and connective tissue] 05-13-2021 Episodic Comment on above: SURGERY 2003 Other connective tissue disease (12 sources) Trochanteric bursitis; Translations: [Trochanteric bursitis, right hip] 01-18-2025 Episodic Other connective tissue disease (6 sources) Cramp; Translations: [Cramp and spasm] 03-21-2025 Episodic Other connective tissue disease (1 source) Cramp and spasm; Translations: [Cramp and spasm] Onset: 5 Episodic Other connective tissue disease (5 sources) Trochanteric bursitis, right hip; Translations: [Trochanteric bursitis, right hip] Onset: 5 Episodic Other ear and sense organ disorders (6 sources) Tinnitus; Translations: [Tinnitus, unspecified ear] 08-30-2024 Episodic Comment on above: Likely due to middle ear dysfunction and eustachian tube dysfunction left ear Other nervous system disorders (8 sources) Polyneuropathy; Translations: [Polyneuropathy, unspecified] 05-13-2021 Chronic Other nervous system disorders (20 sources) Neuropathy; Translations: [Polyneuropathy, unspecified] 10-31-2024 Chronic Comment on above: Severe exacerbation of pain both feet current at night. Other nervous system disorders (19 sources) Carpal tunnel syndrome; Translations: [Carpal tunnel syndrome, bilateral upper limbs] 09-06-2024 Chronic Other nervous system disorders (4 sources) Carpal tunnel syndrome of right wrist; Translations: [Carpal tunnel syndrome, right upper limb] 03-21-2025 Chronic Other nervous system disorders (2 sources) Carpal tunnel syndrome, bilateral upper limbs; Translations: [Carpal tunnel syndrome, bilateral upper limbs] Onset: 5 Chronic Other nervous system disorders (1 source) Carpal tunnel syndrome, right upper limb; Translations: [Carpal tunnel syndrome, right upper limb] Onset: 5 Chronic Other nervous system disorders (1 source) Polyneuropathy, unspecified; Translations: [Polyneuropathy, unspecified] Onset: 5 Chronic Other nervous system disorders (1 source) Postoperative pain ; Translations: [Other acute postprocedural pain] Onset: 2 Episodic Other nervous system disorders (6 sources) Tremor; Translations: [Tremor, unspecified] 08-30-2024 Episodic Comment on above: Tremor may be cerebe llar in nature although some of his breathing medications may add to this Other non-traumatic joint disorders (7 sources) Acromioclavicular joint pain; Translations: [Pain in unspecified shoulder] 05-13-2021 Episodic Other non-traumatic joint disorders (8 sources) Hip pain; Translations: [Pain in right hip] 11-01-2024 Episodic Other non-traumatic joint disorders (1 source) Pain in right hip; Translations: [Pain in right hip] Onset: 5 Episodic Other nutritional; endocrine; and metabolic disorders (20 sources) Obesity; Translations: [Obesity, unspecified] Onset: 2 Chronic Other nutritional; endocrine; and metabolic disorders (1 source) Other obesity due to excess calories; Translations: [Other obesity due to excess calories] Onset: 5 Chronic Other nutritional; endocrine; and metabolic disorders (1 source) Body mass index (BMI) 32.0-32.9, adult; Translations: [Body mass index [BMI] 32.0-32.9, adult] Onset: 5 Chronic Other upper respiratory disease (7 sources) Allergic disposition; Translations: [Other allergic rhinitis] 05-13-2021 Chronic Other upper respiratory infections (7 sources) Chronic sinusitis; Translations: [Chronic sinusitis, unspecified] 05-13-2021 Chronic Residual codes; unclassified (8 sources) Obstructive sleep apnea syndrome; Translations: [Obstructive sleep apnea (adult) (pediatric)] Onset: 6 02-10-2016 Chronic Comment on above: Noncompliant Residual codes; unclassified (7 sources) Hypoxia; Translations: [Idiopathic sleep related nonobstructive alveolar hypoventilation] 05-13-2021 Chronic Residual codes; unclassified (1 source) Obstructive sleep apnea (adult) (pediatric); Translations: [Obstructive sleep apnea (adult) (pediatric)] Onset: 5 Chronic Residual codes; unclassified (15 sources) Tobacco user; Translations: [Tobacco use] Onset: 2 Episodic Residual codes; unclassified (7 sources) Noncompliance with treatment; Translations: [Noncompliance] 05-13-2021 Episodic Respiratory failure; insufficiency; arrest (adult) (4 sources) Dependence on supplemental oxygen 02-24-2022 Chronic Spondylosis; intervertebral disc disorders; other back problems (18 sources) Degeneration of lumbar intervertebral disc; Translations: [Degeneration of intervertebral disc of lumbar region] 01-18-2025 Chronic Substance-related disorders (20 sources) Tobacco dependence syndrome; Translations: [Nicotine dependence] Onset: 5 03-14-2015 Chronic Comment on above: started age 14 curre ntly 1 ppd Unclassified (15 sources) Greater trochanteric bursitis of right hip; Translations: [M70.61 - Trochanteric bursitis, right hip] Unclassified (2 sources) M25.551 - Pain in right hip Unclassified (1 source) Other intervertebral disc degeneration, lumbar region without mention of lumbar back pain or lower extremity pain; Translations: [Other intervertebral disc degeneration, lumbar region without mention of lumbar back pain or lower extremity pain] Onset: 5 Unclassified (1 source) Obesity, class 1; Translations: [Obesity, class 1] Onset: 5 Unclassified (1 source) Cough, unspecified; Translations: [Cough, unspecified] Onset: 4 Past or Other Problems Problem Classification Problem Date Documented Da te Episodic/Chronic Coronary atherosclerosis and other heart disease (1 source) Presence of aortocoronary bypass graft; Translations: [Presence of aortocoronary bypass graft] Onset: 10-17-2024 Episodic Nonspecific chest pain (14 sources) Chest pain; Translations: [Atypical chest pain] Onset: 12-16-2024 12-28-2020 Episodic Other connective tissue disease (1 source) Other muscle spasm; Translations: [Other muscle spasm] Onset: 05-20-2024 Episodic Other ear and sense organ disorders (1 source) Tinnitus, unspecified ear; Translations: [Tinnitus, unspecified ear] Onset: 08-31-2024 Episodic Other lower respiratory disease (2 sources) Dyspnea; Translations: [Shortness of breath] Onset: 03-14-2015 Resolved: 10-31-2015 10-31-2015 Episodic Other nervous system disorders (1 source) Tremor, unspecified; Translations: [Tremor, unspecified] Onset: 08-31-2024 Episodic Other non-traumatic joint disorders (1 source) Pain in left shoulder; Translations: [Pain in left shoulder] Onset: 08-11-2016 08-11-2016 Episodic Residual codes; unclassified (2 sources) Hypersomnia; Translations: [Hypersomnia, unspecified] Onset: 03-14-2015 Resolved: 10-31-2015 10-31-2015 Episodic Sprains and strains (1 source) Strain of other muscles, fascia and tendons at shoulder and upper arm level, left arm, initial encounter; Translations: [Strain of other muscles, fascia and tendons at shoulder and upper arm level, left arm, initial encounter] Onset: 08-11-2016 08-27-2016 Episodic Results Test Name Value Interpretation Reference Range Facility Endocrinology Visit Reporton 03-23-2025 Endocrinology Visit Report [facility] [address] [place] [address] OFFICE VISIT Date of Service: 03/23/25 MR#: [id number] Acct: [id number] Name: YENNY GARCIA Rep #: [id number] : 1970 Provider: Zane Eckert Age/Sex: 54/M Location: [facility] Status: Signed Intake Vital Signs 01/30/25 13:46 03/21/25 11:26 03/23/25 11:34 Height 6 ft 1 in 6 ft 1 in 6 ft 1 in Weight: 255 lb BMI 33.6 BP 123/83 H Blood Pressure Location Lt brachial Position Sitting Pulse 91 Pulse Source Monitor Pulse Oximetry (%) 92 Oxygen Delivery Method room air Intake Visit Reasons: 6 W FU Chief Complaint: diabetes Allergies bee pollen Adverse Reaction (Verified 03/23/25 11:34) throat swelling Medications ???Medication ???Instructions ???Recorded ???Confirmed ???Type fluoxetine 40 mg capsule 40 mg PO DAILY 05/13/21 03/23/25 H istory epinephrine 0.3 mg/0.3 mL 0.3 mg IM Q5-15M PRN anaphylaxis 0 05/14/21 03/23/25 History injection syringe nitroglycerin 0.4 mg sublingual 0.4 mg buccal Q5-15M PRN chest cipriano n 01/08/22 03/23/25 History tablet budesonide-formoterol HFA 160 2 puff inhalation BID #3 ea 03/23/25 Rx mcg-4.5 mcg/actuation aerosol inhaler (Symbicort) cetirizine 10 mg tablet 10 mg PO DAILY #90 tabs 05/19/24 0 03/23/25 Rx fluticasone propionate 50 1 spray intranasal BID #16 grams 0 05/19/24 03/23/25 Rx mcg/actuation nasal spray,suspension (Flonase Allergy Relief) tiotropium bromide 2.5 2 puff inhalation QDAY #3 ea 05/1903/23/25 Rx mcg/actuation mist for inhalation (Spiriva Respimat) spacer #1 ea 07/21/24 03/23/25 Rx Pulse ox meter #1 ea 07/26/24 03/23/25 Rx blood pressure kit-extra large #1 ea 07/26/24 03/23/25 Rx pen needle, diabetic 31 gauge x #100 ea 08/02/24 03/23/25 Rx 5/16 (Comfort EZ Pen Encinal) guaifenesin 1,200 mg tablet, 1,200 mg PO Q12H PRN congestion 03/23/25 History extended release 12 hr lidocaine 4 % topical patch 2 patch topical QDAY PRN pain #30 08/30/24 03/23/25 Rx (Salonpas (lidocaine)) ea magnesium oxide 400 mg (241.3 mg 400 mg PO QHS #30 tabs 08/30/24 Rx magnesium) tablet vitamin B complex 1 cap PO QDAY #30 caps 09/05/24 Rx montelukast 10 mg tablet 10 mg PO QPM #90 tabs 09/07/2412/13 Rx atorvastatin 20 mg tablet 20 mg PO QPM #90 tabs 10/17/2412/13 Rx empagliflozin 10 mg tablet 10 mg PO DAILY #90 tabs 10/17/24 0 03/23/25 Rx (Jardiance) lisinopril 20 mg tablet 20 mg PO DAILY #90 tabs 10/17/24 0 03/23/25 Rx metoprolol succinate 25 mg 25 mg PO QDAY #90 tabs 10/17/24 Rx tablet,extended release 24 hr insulin aspart U-100 100 unit/mL 25 unit (0.25 mL) subcut TID #22.5 10/31/24 03/23/25 Rx (3 mL) subcutaneous pen (Novolog mL FlexPen U-100 Insulin aspart) metformin 1,000 mg tablet 1,000 mg PO BID #180 tabs 10/31/24 03/23/25 Rx albuterol 90 mcg-budesonide 80 2 inh inhalation TID PRN shortness 11/01/24 03/23/25 Rx mcg/actuation HFA aerosol inhaler of breath #10.7 grams (Airsupra) naproxen 500 mg tablet 500 mg PO BID #60 tabs 11/01/24 Rx handicap placard #1 ea 11/30/24 03/23/25 Rx blood-glucose sensor (FreeStyle #2 ea 12/12/24 03/23/25 Rx Jt 3 Plus Sensor device) promethazine-DM 6.25 mg-15 mg/5 mL 5 ml PO Q4-6H PRN cough #473 mL 01/03/25 03/23/25 Rx oral syrup pregabalin 200 mg capsule (Lyrica) 200 mg PO TID #270 caps 02/01/25 03/23/25 Rx oxymetazoline 0.05 % nasal spray 3 spray intranasal Q12H PRN nasal 02/22/25 03/23/25 History (Afrin (oxymetazoline)) congestion pantoprazole 40 mg tablet,delayed 40 mg PO QDAY #30 tabs 02/22/25 0 03/23/25 Rx release tizanidine 4 mg capsule 4 mg PO Q8H PRN muscle spasticity 02/22/25 03/23/25 Rx #60 caps tirzepatide 2.5 mg/0.5 mL 2.5 mg (0.5 mL) subcut QWEEK #2 mL 03/02/25 03/23/25 Rx subcutaneous pen injector (Mounjaro) insulin glargine 100 unit/mL (3 25 unit (0.25 mL) subcut BID #15 m L 03/20/25 03/23/25 Rx mL) subcutaneous pen (Lantus Solostar U-100 Insulin) ipratropium 0.5 mg-albuterol 3 mg 3 ml inhalation Q4H PRN PRN SOB 0 03/21/25 03/23/25 Rx (2.5 mg base)/3 mL nebulization /OR WHEEZING #180 mL soln nicotine (polacrilex) 4 mg buccal 4 mg buccal Q8H PRN nicotine 10/1503/23/25 Rx lozenge cravings #72 ea PFSH Medical History Depression Anxiety Restless legs Syncope Gastric reflux CPAP (continuous positive airway pressure) dependence Sleep apnea Smoker On home oxygen therapy Shortness of breath on exertion Chronic cough Leg cramps History of stress test H/O transesophageal echocardiography (DRAKE) for monitoring His (more content not included)... Normal [facility] MR/PAT.[place] 03-22-2025 MR/PAT.[facility] Medical Records Department [address] [place] [address] PAT - Anesthesia 03/22/25 1755 MR#: [id number] Acct: [id number] Name: YENNY GARCIA Rep #: [id number] : 1970 54 From: Tiago Saavedra MD PCP: Dr. Gilson Hawk, DO Status:PRE FLC Y Race: C Location: [facility] Pre-Assessment Diagnosis/Proposed Procedure Planned Operative Procedure(s): RIGHT ENODOSCOPIC CARPAL TUNNEL RELEASE Anesthesia History Anesthesia History - strategic consultant: Anesthesia History - strategic consultant Hx Hospitalization No 03/22/25 15:03 Any Problems With Anesthesia No 03/22/25 15:03 Cholinesterase deficiency No 03/22/25 15:03 You/Your Family Experience No 03/22/25 15:03 fever (hyperthermia) with Relationship Recent Exposure to Contagious Disease Does patient have nerve No 03/22/25 15:03 stimulator Patient instructed to have device shut off --Does patient have Pacemaker or ICD? When Was Last Pacemaker Check QUESTION #4 FULL TEXT: You/Your Family Experience fever (hyperthermia) with Anesthesia Last Oral Intake Last Oral intake: Last Oral Intake NPO since Meds taken in AM with sips of water? Meds patient instructed to take am of surgery PONV PONV - strategic consultant: PONV - strategic consultant Female No 03/22/25 15:03 HX of Motion Sickness No 03/22/25 15:03 HX of N/V After Surgery No 03/22/25 15:03 Non-Smoker No 03/22/25 15:03 Duration of Surgery greater No 03/22/25 15:03 than 60 minutes Number of Risk Factors PONV Score Height Weight Height Weight: Anesthesia: Height Weight Height 6 ft 1 in 02/24/25 10:16 Respiratory Assessment Respiratory Assessment - strategic consultant: Respiratory Tract Infection Hx - strategic consultant Hx Respiratory Tract Infection No 03/22/25 15:03 STOP Sleep Apnea STOP Sleep Apnea - strategic consultant: STOP Sleep Apnea - strategic consultant Hx Hypertension Yes: CONTROLLED WITH MEDS 03/22/25 15:03 Hx Sleep Apnea Yes 03/22/25 15:03 CPAP Yes 03/22/25 15:03 BIPAP No 03/22/25 15:03 Do you snore loudly (louder than talking or can be heard Do you often feel tired/ fatigued/ sleepy during daytime? Has anyone observed you stop breathing during sleep? STOP Results Positive 03/22/25 15:03 QUESTION #5 FULL TEXT : Do you snore loudly (louder than talking or can be heard through closed doors)? 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 Specify any problems Hx of Preganancy in last 3 N/A 03/22/25 15:03 Months Nurse Filling Out Transfusion [email or web address] 03/22/25 15:03 Questions: Date: 03/22/25 03/22/25 15:03 Time: 15:09 03/22/25 15:03 Patient unable to answer at this time (ie. confused, unrespo /Reproduction History /Reproductive History - strategic consultant: /Reproductive Hx- strategic consultant Hx Now Gestational Age (in weeks): EDC: Hx Hx Para Hx Section SAB PFS Medical History (Updated 03/22/25 @ 15:14 by Evelio Mooer) Depression Anxiety Restless legs Syncope Gastric reflux CPAP (continuous positive airway pressure) dependence Sleep apnea Smoker On home oxygen therapy Shortness of breath on exertion Chronic cough Leg cramps History of stress test H/O transesophageal echocardiography (DRAKE) for monitoring History of echocardiogram Cardiology follow-up encounter Arteriosclerotic heart disease Obesity History of left tennis elbow Tobacco abuse Type 2 diabetes mellitus Dyslipidemia Acute anxiety LOUISE (obstructive sleep apnea) Nocturnal hypoxemia Polyneuropathy Hypertension Environmental and seasonal allergies Uncontrolled persistent asthma Chest pain, atypical Hyperglycemia Arthralgia of acromioclavicular joint Chronic sinusitis Non-compliance Home Medications ???Medication ???Instructions ???Recorded ???Last Taken ???Type fluoxetine 40 mg capsule 40 mg PO DAILY 05/13/21 Unknown Hi story epinephrine 0.3 mg/0.3 mL 0.3 mg IM (more content not included)... Normal [facility] Anion gap in Serum or Plasma Ordered By: Gilson Hawk on 03-21-2025 Anion gap [Moles/Vol] 15 mmol/L 5-15 [facility] BUN/creatinine ratioOrdered By: Gilson Hawk on 03-21-2025 Urea nitrogen/Creatinine [Mass ratio] 17.4 mg/mg - [facility] Bilirubin, totalOrdered By: Gilson Hawk on 03-21-2025 Bilirubin [Mass/Vol] 0.23 mg/dL 0.00-1.30 [facility] Calculated very low density lipoprotein (VLDL) cholesterol measurementOrdered By: Gilson Hawk on 03-21-2025 Calculated very low density lipoprotein (VLDL) cholesterol measurement 79 mg/dL High 5-40 [facility] Carbon dioxide, total [Moles /volume] in Central venous bloodOrdered By: Gilson Michael on 03-21-2025 CO2 [Moles/Vol] 21.7 mmol/L 21.0-32.0 [facility] Chloride assayOrdered By: Do dre Hawk on 03-21-2025 Chloride [Moles/Vol] 100 mmol/L 98-108 [facility] Comprehensive Metabolic Prof ilon 03-21-2025 Albumin [Mass/Vol] 4.5 g/dL Normal 3.5-5.0 [facility] Comment on above: Performed By: #### L 500.4050, L500.4100, L501.5200, L501.9985 ####[facility] [address] [place], [address] Albumin/Globulin [Mass ratio] 1.3 {ratio} Normal 0.9-2.4 [facility] Comment on above: Performed By: #### L 500.4050, L500.4100, L501.5200, L501.9985 ####[facility] [address] [place], [address] ALK PHOS 96 U/L Normal 40-129 [facility] Comment on above: Performed By: #### L 500.4050, L500.4100, L501.5200, L501.9985 ####[facility] [address] [place], [address] ALT [Catalytic activity/Vol] 35 U/L Normal <=46 [facility] Comment on above: Performed By: #### L 500.4050, L500.4100, L501.5200, L501.9985 ####[facility] [address] [place], [address] AST [Catalytic activity/Vol] 20 U/L Normal <=37 [facility] Comment on above: Result Comment: Hemo lysis present, Results??could be affected. ?? Performed By: #### L 500.4050, L500.4100, L501.5200, L501.9985 ####[facility] [address] [place], [address] Bilirubin [Mass/Vol] 0.23 mg/dL Normal 0.00-1.30 [facility] Comment on above: Performed By: #### L 500.4050, L500.4100, L501.5200, L501.9985 ####[facility] [address] [place], [address] BUN/CRE 17.4 RATIO Normal 10-20 [facility] Comment on above: Performed By: #### L 500.4050, L500.4100, L501.5200, L501.9985 ####[facility] [address] [place], [address] Calcium [Mass/Vol] 10.2 mg/dL Normal 7.6-11.0 [facility] Comment on above: Performed By: #### L 500.4050, L500.4100, L501.5200, L501.9985 ####[facility] [address] [place], [address] Chloride [Moles/Vol] 100 mmol/L Normal 98-108 [facility] Comment on above: Performed By: #### L 500.4050, L500.4100, L501.5200, L501.9985 ####[facility] [address] [place], [address] CO2 [Moles/Vol] 21.7 mmol/L Normal 21.0-32.0 [facility] Comment on above: Performed By: #### L 500.4050, L500.4100, L501.5200, L501.9985 ####[facility] [address] [place], [address] Creatinine [Mass/Vol] 0.93 mg/dL Normal 0.70-1.20 [facility] Comment on above: Performed By: #### L 500.4050, L500.4100, L501.5200, L501.9985 ####[facility] [address] [place], [address] GAP 15 Normal 5-15 [facility] Comment on above: Performed By: #### L 500.4050, L500.4100, L501.5200, L501.9985 ####[facility] [address] [place], [address] GFR/1.73 sq M.predicted among non-blacks MDRD (S/P/Bld) [Vol rate/Area] 97 mL/min/{1.73_m2} Normal >60 [facility] Comment on above: Result Comment: mL/m in/1.73m2 CKD-EPI Creatinine Equation (2020) Performed By: #### L 500.4050, L500.4100, L501.5200, L501.9985 ####[facility] [address] [place], [address] Globulin (S) [Mass/Vol] 3.3 g/dL Normal 2.2-4.2 [facility] Comment on above: Performed By: #### L 500.4050, L500.4100, L501.5200, L501.9985 ####[facility] [address] [place], [address] Glucose [Mass/Vol] 371 mg/dL High 70-99 [facility] Comment on above: Performed By: #### L 500.4050, L500.4100, L501.5200, L501.9985 ####[facility] [address] [place], [address] Potassium [Moles/Vol] 4.1 mmol/L Normal 3.3-5.1 [facility] Comment on above: Result Comment: Hemo lysis present, Results??could be affected. ?? Performed By: #### L 500.4050, L500.4100, L501.5200, L501.9985 ####[facility] [address] [place], [address] Sodium [Moles/Vol] 136 mmol/L Normal 133-145 [facility] Comment on above: Performed By: #### L 500.4050, L500.4100, L501.5200, L501.9985 ####[facility] [address] [place], [address] T PROT 7.8 g/dL Normal 5.9-8.4 [facility] Comment on above: Performed By: #### L 500.4050, L500.4100, L501.5200, L501.9985 ####[facility] [address] [place], [address] Urea nitrogen [Mass/Vol] 16 mg/dL Normal 4-19 [facility] Comment on above: Performed By: #### L 500.4050, L500.4100, L501.5200, L501.9985 ####[facility] [address] [place], [address] Glomerular filtration rate ( GFR) estimation/1.73 sq m using serum, plasma, or whole bOrdered By: Gilson Hawk on 03-21-2025 GFR/1.73 sq M.predicted among non-blacks MDRD (S/P/Bld) [Vol rate/Area] 97 mL/min/{1.73_m2} >60 [facility] Comment on above: mL/min/1.73m2 CKD-EP I Creatinine Equation (2020) Hemoglobin A1con 03-21-2025 HbA1c (Bld) [Mass fraction] 8.8 % High <=5.6 [facility] Comment on above: Result Comment: Norm al < 5.7 % Prediabetic 5.7 - 6.4 % Diabetic >or= 6.5 % Please note range changes. Performed By: #### L 500.4050, L500.4100, L501.5200, L501.9949 ####[facility] [address] [place], [address] Hemoglobin A1c percentageOrd ered By: Gilson Hawk on 03-21-2025 HbA1c (Bld) [Mass fraction] 8.8 % High <5.7 [facility] Comment on above: Normal < 5.7 % Predi abetic 5.7 - 6.4 % Diabetic >or= 6.5 % Please note range changes. Internal Medicine Office Vis iton 03-21-2025 Internal Medicine Office Visit [facility] [place] [address] [place] [address] OFFICE VISIT Date of Service: 03/21/25 MR#: [id number] Acct: [id number] Name: YENNY GARCIA Rep #: [id number] : 1970 Provider: Dr. Gilson Fairchild Br own, DO Age/Sex: 54/M Location: [facility] [place].[facility] Status: Signed Intake Vital Signs 02/24/25 10:16 03/21/25 11:26 Height 6 ft 1 in 6 ft 1 in Weight: 254 lb 252 lb 4 oz BMI 33.5 33.3 BP 136/87 H 124/78 H Blood Pressure Location Rt brachial Rt brachial Position Sitting Sitting Respiration 16 16 Pulse 94 93 Pulse Source Monitor Monitor Temp 98.4 F 96.4 F L Temp Source Temporal Temporal Pulse Oximetry (%) 94 94 Oxygen Delivery Method room air room air Intake Visit Reasons: SURG CLEARANCE Chief Complaint: clearance Youth Advocate Required: No Accompanied by: Self Is patient in pain?: No Allergies bee pollen Adverse Reaction (Verified 03/02/25 10:36) throat swelling Medications ???Medication ???Instructions ???Recorded ???Confirmed ???Type fluoxetine 40 mg capsule 40 mg PO DAILY 05/13/21 03/21/25 H istory epinephrine 0.3 mg/0.3 mL 0.3 mg IM Q5-15M PRN 05/14/2110/15 History injection syringe nitroglycerin 0.4 mg sublingual 0.4 mg buccal Q5-15M PRN chest cipriano n 01/08/22 03/21/25 History tablet budesonide-formoterol HFA 160 2 puff inhalation BID #3 ea 03/21/25 Rx mcg-4.5 mcg/actuation aerosol inhaler (Symbicort) cetirizine 10 mg tablet 10 mg PO DAILY #90 tabs 05/19/24 0 03/21/25 Rx fluticasone propionate 50 1 spray intranasal BID #16 grams 0 05/19/24 03/21/25 Rx mcg/actuation nasal spray,suspension (Flonase Allergy Relief) tiotropium bromide 2.5 2 puff inhalation QDAY #3 ea 05/1903/21/25 Rx mcg/actuation mist for inhalation (Spiriva Respimat) spacer #1 ea 07/21/24 03/21/25 Rx Pulse ox meter #1 ea 07/26/24 03/21/25 Rx blood pressure kit-extra large #1 ea 07/26/24 03/21/25 Rx pen needle, diabetic 31 gauge x #100 ea 08/02/24 03/21/25 Rx 5/16 (Comfort EZ Pen Encinal) guaifenesin 1,200 mg tablet, 1,200 mg PO Q12H PRN 08/30/2410/15 History extended release 12 hr lidocaine 4 % topical patch 2 patch topical QDAY PRN pain #30 08/30/24 03/21/25 Rx (Salonpas (lidocaine)) ea magnesium oxide 400 mg (241.3 mg 400 mg PO QHS #30 tabs 08/30/24 Rx magnesium) tablet vitamin B complex 1 cap PO QDAY #30 caps 09/05/24 Rx montelukast 10 mg tablet 10 mg PO QPM #90 tabs 09/07/2410/15 Rx atorvastatin 20 mg tablet 20 mg PO QPM #90 tabs 10/17/2410/15 Rx empagliflozin 10 mg tablet 10 mg PO DAILY #90 tabs 10/17/24 0 03/21/25 Rx (Jardiance) lisinopril 20 mg tablet 20 mg PO DAILY #90 tabs 10/17/24 0 03/21/25 Rx metoprolol succinate 25 mg 25 mg PO QDAY #90 tabs 10/17/24 Rx tablet,extended release 24 hr insulin aspart U-100 100 unit/mL 25 unit (0.25 mL) subcut TID #22.5 10/31/24 03/21/25 Rx (3 mL) subcutaneous pen (Novolog mL FlexPen U-100 Insulin aspart) metformin 1,000 mg tablet 1,000 mg PO BID #180 tabs 10/31/24 03/21/25 Rx albuterol 90 mcg-budesonide 80 2 inh inhalation TID PRN shortness 11/01/24 03/21/25 Rx mcg/actuation HFA aerosol inhaler of breath #10.7 grams (Airsupra) naproxen 500 mg tablet 500 mg PO BID #60 tabs 11/01/24 Rx handicap placard #1 ea 11/30/24 03/21/25 Rx blood-glucose sensor (FreeStyle #2 ea 12/12/24 03/21/25 Rx Jt 3 Plus Sensor device) promethazine-DM 6.25 mg-15 mg/5 mL 5 ml PO Q4-6H PRN cough #473 mL 01/03/25 03/21/25 Rx oral syrup pregabalin 200 mg capsule (Lyrica) 200 mg PO TID #270 caps 02/01/25 03/21/25 Rx oxymetazoline 0.05 % nasal spray 3 spray intranasal Q12H PRN 03/21/25 History (Afrin (oxymetazoline)) pantoprazole 40 mg tablet,delayed 40 mg PO QDAY #30 tabs 02/22/25 0 03/21/25 Rx release tizanidine 4 mg capsule 4 mg PO Q8H PRN muscle spasticity 02/22/25 03/21/25 Rx #60 caps tirzepatide 2.5 mg/0.5 mL 2.5 mg (0.5 mL) subcut QWEEK #2 mL 03/02/25 03/21/25 Rx subcutaneous pen injector (Maritza) insulin glargine 100 unit/mL (3 25 unit (0.25 mL) subcut BID #15 m L 03/20/25 03/21/25 Rx mL) subcutaneous pen (Lantus Solostar U-100 Insulin) ipratropium 0.5 mg-albuterol 3 mg 3 ml inhalation Q4H PRN PRN SOB 0 03/21/25 03/21/25 Rx (2.5 mg base)/3 mL nebulization /OR WHEEZING #180 mL soln nicotine (polacrilex) 4 mg buccal 4 mg buccal Q8H PRN nicotine 10/1503/21/25 Rx lozenge cravings #72 ea Nurse's Note: patient would like to continue with trying to quit smoking surg clearance review diabetic meds c/o of heart burn [facility] Medical History Arteriosclerotic heart disease Obesity History of left ten (more content not included)... Normal [facility] LDL calc ser/plasOrdered By: Gilson Hawk on 03-21-2025 Cholesterol in LDL [Mass/Vol] 99 mg/dL [facility] Comment on above: Ueaflnrlte=044-827 m g/dL & Higher Xbca=569 mg/dL or greater Laboratory - Chemistry and C hemistry - challengeOrdered By: Gilson Hawk on 03-21-2025 AST [Catalytic activity/Vol] 20 U/L <38 [facility] Comment on above: Hemolysis present, R esults could be affected. Lipid Profileon 03-21-2025 CHOL:HDL 5.58 Normal [facility] Comment on above: Performed By: #### L 500.4050, L500.4100, L501.5200, L501.9985 ####[facility] [address] [place], [place], [address] Cholesterol [Mass/Vol] 216 mg/dL High <=200 [facility] Comment on above: Result Comment: Chol esterol level, Desirable <200 mg/dL Borderline high cholesterol 200-239 mg/dL High cholesterol >=240 mg/dL Recommendations of the NCEP Adult Treatment Panel for the following risk-cutoff thresholds for the [place] population. Performed By: #### L 500.4050, L500.4100, L501.5200, L501.9985 ####[facility] [address] [place], [address] Cholesterol in HDL [Mass/Vol] 39 mg/dL Low [facility] Comment on above: Result Comment: Angy onal Cholesterol Education Program (NCEP) guidelines: <40 mg/dL: Low HDL-cholesterol (major risk factor for CHD) >= 60 mg/dL: High HDL-cholesterol (negative risk factor for CHD) HDL-cholesterol is affected by a number of factors, e.g. smoking, exercise, hormones, sex and age. Performed By: #### L 500.4050, L500.4100, L501.5200, L501.9985 ####[facility] [address] [place], [address] Cholesterol in LDL [Mass/Vol] 99 mg/dL Normal [facility] Comment on above: Result Comment: Bord hynftg=420-906 mg/dL Higher Rruz=422 mg/dL or greater Performed By: #### L 500.4050, L500.4100, L501.5200, L501.9985 ####[facility] [address] [place], [address] Cholesterol in VLDL [Mass/Vol] 79 mg/dL High 5-40 [facility] Comment on above: Performed By: #### L 500.4050, L500.4100, L501.5200, L501.9985 ####[facility] [address] [place], [address] Triglyceride [Mass/Vol] 394 mg/dL High [facility] Comment on above: Result Comment: The drugs N-Acetylcysteine and Metamizole may falsely depress this assay. Normal range: <150 mg/dL Borderline High: 150-199 mg/dL High: 200-499 mg/dL Very High: >500 mg/dL Performed By: #### L 500.4050, L500.4100, L501.5200, L501.9985 ####[facility] [address] [place], [address] Magnesiumon 03-21-2025 Magnesium [Mass/Vol] 2.0 mg/dL Normal 1.5-2.2 [facility] Comment on above: Performed By: #### L 500.4050, L500.4100, L501.5200, L501.9920 ####[facility] [address] [place], [address] Magnesium measurement (mass/ volume)Ordered By: Gilson Hawk on 03-21-2025 Magnesium (Unsp spec) [Mass/Vol] 2.0 mg/dL 1.5-2.2 [facility] Potassium measurement (mass/ volume)Ordered By: Gilson Hawk on 03-21-2025 Potassium (Unsp spec) [Mass/Vol] 4.1 mmol/L 3.3-5.1 [facility] Comment on above: Hemolysis present, R esults could be affected. Screening total cholesterol/ high density lipoprotein (HDL) cholesterol ratioOrdered By: Gilson Hawk on 03-21-2025 Cholesterol.total/Ch olesterol in HDL [Mass ratio] 5.58 {ratio} [facility] Serum creatinine measurement (mass/volume)Ordered By: Gilson Hawk on 03-21-2025 Creatinine [Mass/Vol] 0.93 mg/dL 0.70-1.20 [facility] Serum globulin measurementOr dered By: Gilson Hawk on 03-21-2025 Globulin (S) [Mass/Vol] 3.3 g/dL 2.2-4.2 [facility] Serum glucose measurement (m ass/volume)Ordered By: Gilson Hawk on 03-21-2025 Glucose [Mass/Vol] 371 mg/dL High 70-99 [facility] Serum or plasma alanine mosqueda otransferase (ALT) measurementOrdered By: Gilson Hawk on 03-21-2025 ALT [Catalytic activity/Vol] 35 U/L <47 [facility] Serum or plasma albumin kyle urement (mass/volume)Ordered By: Gilson Hawk on 03-21-2025 Albumin [Mass/Vol] 4.5 g/dL 3.5-5.0 [facility] Serum or plasma albumin/glob ulin mass ratioOrdered By: Gilson Hawk on 03-21-2025 Albumin/Globulin [Mass ratio] 1.3 {ratio} 0.9-2.4 [facility] Serum or plasma alkaline marcus sphatase measurementOrdered By: Gilson Hawk on 03-21-2025 ALP [Catalytic activity/Vol] 96 U/L 40-129 [facility] Serum or plasma calcium kyle urement (mass/volume)Ordered By: Gilson Hawk on 03-21-2025 Calcium [Mass/Vol] 10.2 mg/dL 7.6-11.0 [facility] Serum or plasma cholesterol in HDL measurement (mass/volume)Ordered By: Gilson Hawk on 03-21-2025 Cholesterol in HDL [Mass/Vol] 39 mg/dL Low >40 [facility] Comment on above: National Cholesterol Education Program (NCEP) guidelines:<40 mg/dL: Low HDL-cholesterol (major risk factor for CHD)>= 60 mg/dL: High HDL-cholesterol (negative risk factor for CHD)HDL-cholesterol is affected by a number of factors, e.g. smoking, exercise, hormones, sex and age. Serum or plasma cholesterol measurement (mass/volume)Ordered By: Gilson Hawk on 03-21-2025 Cholesterol [Mass/Vol] 216 mg/dL High <201 [facility] Comment on above: Cholesterol level, D esirable <200 mg/dLBorderline high cholesterol 200-239 mg/dLHigh cholesterol >=240 mg/dLRecommendations of the NCEP Adult Treatment Panel for the following risk-cutoff thresholds for the [place] population. Serum or plasma urea nitroge n measurement (mass/volume)Ordered By: Gilson Hawk on 03-21-2025 Urea nitrogen [Mass/Vol] 16 mg/dL 4-19 [facility] Sodium levelOrdered By: Axel Hawk on 03-21-2025 Sodium [Moles/Vol] 136 mmol/L 133-145 [facility] Total proteinOrdered By: Laurita Hawk on 03-21-2025 Protein [Mass/Vol] 7.8 g/dL 5.9-8.4 [facility] Triglycerides measurementOrd ered By: Gilson Hawk on 03-21-2025 Triglyceride [Mass/Vol] 394 mg/dL High <199 [facility] Comment on above: The drugs N-Acetylcy steine and Metamizole may falsely depress this assay. Normal range: <150 mg/dLBorderline High: 150-199 mg/dLHigh: 200-499 mg/dLVery High: >500 mg/dL Orthopedic Visit Reporton Orthopedic Visit Report [facility] [address] [place] [address] OFFICE VISIT Date of Service: 03/02/25 MR#: [id number] Acct: [id number] Name: YENNY GARCIA Rep #: [id number] : 1970 Provider: Dr. Jim phillips MD Age/Sex: 54/M Location: [facility] [place].[facility] Status: Signed Intake Vital Signs 01/18/25 14:15 02/24/25 10:16 Height 6 ft 1 in 6 ft 1 in Intake Visit Reasons: BILATERAL WRISTS Allergies bee pollen Adverse Reaction (Verified 03/02/25 10:36) throat swelling Medications ???Medication ???Instructions ???Recorded ???Confirmed ???Type fluoxetine 40 mg capsule 40 mg PO DAILY 05/13/21 03/02/25 H istory epinephrine 0.3 mg/0.3 mL 0.3 mg IM Q5-15M PRN 05/14/2102/19 History injection syringe nitroglycerin 0.4 mg sublingual 0.4 mg buccal Q5-15M PRN chest cipriano n 01/08/22 03/02/25 History tablet budesonide-formoterol HFA 160 2 puff inhalation BID #3 ea 03/02/25 Rx mcg-4.5 mcg/actuation aerosol inhaler (Symbicort) cetirizine 10 mg tablet 10 mg PO DAILY #90 tabs 05/19/24 0 03/02/25 Rx fluticasone propionate 50 1 spray intranasal BID #16 grams 0 05/19/24 03/02/25 Rx mcg/actuation nasal spray,suspension (Flonase Allergy Relief) tiotropium bromide 2.5 2 puff inhalation QDAY #3 ea 05/1903/02/25 Rx mcg/actuation mist for inhalation (Spiriva Respimat) insulin glargine 100 unit/mL (3 25 unit (0.25 mL) subcut BID #15 m L 07/20/24 03/02/25 Rx mL) subcutaneous pen (Lantus Solostar U-100 Insulin) spacer #1 ea 07/21/24 03/02/25 Rx Pulse ox meter #1 ea 07/26/24 03/02/25 Rx blood pressure kit-extra large #1 ea 07/26/24 03/02/25 Rx pen needle, diabetic 31 gauge x #100 ea 08/02/24 03/02/25 Rx /16 (Comfort EZ Pen Encinal) guaifenesin 1,200 mg tablet, 1,200 mg PO Q12H PRN 08/30/2402/19 History extended release 12 hr lidocaine 4 % topical patch 2 patch topical QDAY PRN pain #30 08/30/24 03/02/25 Rx (Salonpas (lidocaine)) ea magnesium oxide 400 mg (241.3 mg 400 mg PO QHS #30 tabs 08/30/24 Rx magnesium) tablet vitamin B complex 1 cap PO QDAY #30 caps 09/05/24 Rx montelukast 10 mg tablet 10 mg PO QPM #90 tabs 09/07/2409/14 Rx atorvastatin 20 mg tablet 20 mg PO QPM #90 tabs 10/17/2409/14 Rx empagliflozin 10 mg tablet 10 mg PO DAILY #90 tabs 10/17/24 0 03/02/25 Rx (Jardiance) lisinopril 20 mg tablet 20 mg PO DAILY #90 tabs 10/17/24 0 03/02/25 Rx metoprolol succinate 25 mg 25 mg PO QDAY #90 tabs 10/17/24 Rx tablet,extended release 24 hr insulin aspart U-100 100 unit/mL 25 unit (0.25 mL) subcut TID #22.5 10/31/24 03/02/25 Rx (3 mL) subcutaneous pen (Novolog mL FlexPen U-100 Insulin aspart) metformin 1,000 mg tablet 1,000 mg PO BID #180 tabs 10/31/24 03/02/25 Rx albuterol 90 mcg-budesonide 80 2 inh inhalation TID PRN shortness 11/01/24 03/02/25 Rx mcg/actuation HFA aerosol inhaler of breath #10.7 grams (Airsupra) naproxen 500 mg tablet 500 mg PO BID #60 tabs 11/01/24 Rx dulaglutide 4.5 mg/0.5 mL 4.5 mg (0.5 mL) subcut QWEEK #2 mL 11/21/24 03/02/25 Rx subcutaneous pen injector (Trulicity) handicap placard #1 ea 11/30/24 03/02/25 Rx blood-glucose sensor (FreeStyle #2 ea 12/12/24 03/02/25 Rx Jt 3 Plus Sensor device) promethazine-DM 6.25 mg-15 mg/5 mL 5 ml PO Q4-6H PRN cough #473 mL 01/03/25 03/02/25 Rx oral syrup pregabalin 200 mg capsule (Lyrica) 200 mg PO TID #270 caps 02/01/25 03/02/25 Rx ipratropium 0.5 mg-albuterol 3 mg 3 ml inhalation Q4H PRN PRN SOB 0 02/22/25 03/02/25 Rx (2.5 mg base)/3 mL nebulization /OR WHEEZING #180 mL soln oxymetazoline 0.05 % nasal spray 3 spray intranasal Q12H PRN 03/02/25 History (Afrin (oxymetazoline)) pantoprazole 40 mg tablet,delayed 40 mg PO QDAY #30 tabs 02/22/25 0 03/02/25 Rx release tizanidine 4 mg capsule 4 mg PO Q8H PRN muscle spasticity 02/22/25 03/02/25 Rx #60 caps PFSH Medical History Arteriosclerotic heart disease Obesity History of left tennis elbow Tobacco abuse Type 2 diabetes mellitus Dyslipidemia Acute anxiety LOUISE (obstructive sleep apnea) Nocturnal hypoxemia Polyneuropathy Hypertension Environmental and seasonal allergies Uncontrolled persistent asthma Chest pain, atypical Hyperglycemia Arthralgia of acromioclavicular joint Chronic sinusitis Non-compliance Surgical History History of cataract surgery S/P CABG (coronary artery bypass graft) (01/31/22) History of open heart surgery History of arthroscopic knee surgery Family History Mother Dick (more content not included)... Normal [facility] Neurology Visit Reporton Neurology Visit Report [facility] [address], [address] [place] [address] OFFICE VISIT Date of Service: 02/24/25 MR#: [id number] Acct: [id number] Name: YENNY GARCIA Rep #: [id number] : 1970 Provider: Dr. Weston walton MD Age/Sex: 54/M Location: [facility] [place].[facility] Status: Signed HPI HPI Chief Complaint: Patient with advanced diabetic neuropathy which is painful Details: This 54-year-old man had been evaluated by me previously for painful diabetic peripheral neuropathy. We had attempted to treat the patient's pain with Lidoderm patch which patient feels is not pa rticularly helpful. Patient has already been receiving pregabalin for management of pain by his primary care physician. Patient had a severe episode of pain last night. He was unable to control the pain. Patient states that he takes significant doses of pregabalin but that may take up to 9 hours to work. For example he will take his pregabalin in the morning at 9 or 10 AM and anticipates suppression of symptoms at about 8 to 9 PM at which time he goes to bed. In the middle the night about 2 AM or so he may have a sudden reemergence of his pain syndrome involving both feet which may be sharp lancinating pains. I have placed the referral to Dr. Helder Borja of pain management in November for managing this patient's pain. Patient has not yet been contacted for that appointment. We will reissue the request for pain management assessment. Patient indicates that he also has continued difficulty with recent memory. This is an issue with his diabetes. His diabetes is gradually coming under better control and he will need perhaps 3 to 6 months to see if his memory improves with his improving diabetic control. Overall patient seems functional at this time and is capable of driving and getting around town. ROS: Patient has right hip pain that is being evaluated by orthopedics. Patient was identified as having trochanteric bursitis and received a steroid injection. Steroid injection may have affected his glucose control. Patient does have evidence of carpal tunnel. He is due to have an orthopedics evaluation for carpal tunnel within the next week. Exam Const Other: BP 136/87 pulse 94 respiration 16 temperature 98.4 O2 sat 93% BMI is 33.5 General Appearance is that of patient who was concerned about progressive pain in the lower extremities. Patient had an exacerbation of severe pain last night Mental status: Patient is awake alert and oriented x 3. Patient's recent memory is again impaired 1/3. 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 Patient uncertain of anxiety regarding his current exacerbation of pain episodes. CN II-XII: No changes noted. Patient has intact vision grossly. Extraocular muscles are intact. Motor and sensory function of face normal. Hearing swallowing phonation tongue normal. Motor exam: Functional strength both upper and lower extremities at this time. Cerebellar testing showed no tremors or ataxia. (Patient has had variable tremor in the past) Reflexes suppressed all 4 extremities. Sensory exam shows that he continues to have relatively profound loss of sensation particularly below the knees to the feet. He also has sensory deficits with regard to his hands. Additional findings includes pain right hip over the greater trochanter of the femur. At the moment palpation is not producing a particularly severe pain. Assessment and Plan Assessment and Plan (1) Neuropathy: Status: Chronic Comment: Severe exacerbation of pain both feet current at night. Plan: 1. Will renew referral to Dr. Helder Borja for pain management. 2. Patient to return to neurology clinic in about 4 months for reassessment. Intake Vital Signs 02/22/25 10:35 02/24/25 10:11 02/24/25 10:16 Height 6 ft 1 in 6 ft 1 in 6 ft 1 in Weight: 250 lb 254 lb BMI 33.0 33.5 BP 124/82 H 136/87 H Blood Pressure Location Lt brachial Rt brachial Position Sitting Sitting Respiration 20 H 16 Pulse 82 94 Pulse Source Monitor Monitor Temp 97.3 F L 98.4 F Temp Source Temporal Temporal Pulse Oximetry (%) 94 94 Oxygen Delivery Method room air room air Intake Visit Reasons: Discuss Nueropathy Chief Complaint: Patient with advanced diabetic neuropathy which is painful Youth Advocate Required: No Accompanied by: Self Allergies bee pollen Adverse Reaction (Verified 02/24/25 10:20) throat swelling Medications ???Medication ???Instructions ???Recorded ???Confirmed ???Type fluoxetine 40 mg capsule 40 mg PO DAILY 05/13/21 02/24/25 H istory epinephrine 0.3 mg/0.3 mL 0.3 mg IM Q5-15M PRN 05/14/2103/15 History injection syringe nitroglycerin 0.4 mg sublingual 0.4 mg buccal Q5-15M PRN chest cipriano n 01/08/22 02/24/25 History tablet budesonide-formoterol HFA 160 2 puff inhalation BID #3 (more content not included)... Normal [facility] Internal Medicine Office Vis iton 02-22-2025 Internal Medicine Office Visit [facility] [address] [place] [address] [place] [address] OFFICE VISIT Date of Service: 02/22/25 MR#: [id number] Acct: [id number] Name: YENNY GARCIA Rep #: [id number] : 1970 Provider: Dr. Gilson Richard own, DO Age/Sex: 54/M Location: [facility] [place].[facility] Status: Signed Intake Vital Signs 01/30/25 13:46 02/22/25 10:35 Height 6 ft 1 in 6 ft 1 in Weight: 249 lb 8 oz 250 lb BMI 32.9 33.0 BP 118/83 H 124/82 H Blood Pressure Location Lt brachial Lt brachial Position Sitting Sitting Respiration 20 H Pulse 89 82 Pulse Source Monitor Monitor Temp 97.3 F L Temp Source Temporal Pulse Oximetry (%) 93 94 Oxygen Delivery Method room air room air Intake Visit Reasons: BAD HEARTBURN Chief Complaint: Heartburn. Youth Advocate Required: No Is patient in pain?: No Allergies bee pollen Adverse Reaction (Verified 02/22/25 10:23) throat swelling Medications ???Medication ???Instructions ???Recorded ???Confirmed ???Type fluoxetine 40 mg capsule 40 mg PO DAILY 05/13/21 02/22/25 H istory epinephrine 0.3 mg/0.3 mL 0.3 mg IM Q5-15M PRN 05/14/2101/13 History injection syringe nitroglycerin 0.4 mg sublingual 0.4 mg buccal Q5-15M PRN chest cipriano n 01/08/22 02/22/25 History tablet budesonide-formoterol HFA 160 2 puff inhalation BID #3 ea 02/22/25 Rx mcg-4.5 mcg/actuation aerosol inhaler (Symbicort) cetirizine 10 mg tablet 10 mg PO DAILY #90 tabs 05/19/24 0 02/22/25 Rx fluticasone propionate 50 1 spray intranasal BID #16 grams 0 05/19/24 02/22/25 Rx mcg/actuation nasal spray,suspension (Flonase Allergy Relief) tiotropium bromide 2.5 2 puff inhalation QDAY #3 ea 05/1902/22/25 Rx mcg/actuation mist for inhalation (Spiriva Respimat) insulin glargine 100 unit/mL (3 25 unit (0.25 mL) subcut BID #15 m L 07/20/24 02/22/25 Rx mL) subcutaneous pen (Lantus Solostar U-100 Insulin) spacer #1 ea 07/21/24 02/22/25 Rx Pulse ox meter #1 ea 07/26/24 02/22/25 Rx blood pressure kit-extra large #1 ea 07/26/24 02/22/25 Rx pen needle, diabetic 31 gauge x #100 ea 08/02/24 02/22/25 Rx 5/16 (Comfort EZ Pen Encinal) guaifenesin 1,200 mg tablet, 1,200 mg PO Q12H PRN 08/30/2401/13 History extended release 12 hr lidocaine 4 % topical patch 2 patch topical QDAY PRN pain #30 08/30/24 02/22/25 Rx (Salonpas (lidocaine)) ea magnesium oxide 400 mg (241.3 mg 400 mg PO QHS #30 tabs 08/30/24 Rx magnesium) tablet vitamin B complex 1 cap PO QDAY #30 caps 09/05/24 Rx montelukast 10 mg tablet 10 mg PO QPM #90 tabs 09/07/2401/13 Rx atorvastatin 20 mg tablet 20 mg PO QPM #90 tabs 10/17/2401/13 Rx empagliflozin 10 mg tablet 10 mg PO DAILY #90 tabs 10/17/24 0 02/22/25 Rx (Jardiance) lisinopril 20 mg tablet 20 mg PO DAILY #90 tabs 10/17/24 0 02/22/25 Rx metoprolol succinate 25 mg 25 mg PO QDAY #90 tabs 10/17/24 Rx tablet,extended release 24 hr insulin aspart U-100 100 unit/mL 25 unit (0.25 mL) subcut TID #22.5 10/31/24 02/22/25 Rx (3 mL) subcutaneous pen (Novolog mL FlexPen U-100 Insulin aspart) metformin 1,000 mg tablet 1,000 mg PO BID #180 tabs 10/31/24 02/22/25 Rx albuterol 90 mcg-budesonide 80 2 inh inhalation TID PRN shortness 11/01/24 02/22/25 Rx mcg/actuation HFA aerosol inhaler of breath #10.7 grams (Airsupra) naproxen 500 mg tablet 500 mg PO BID #60 tabs 11/01/24 Rx dulaglutide 4.5 mg/0.5 mL 4.5 mg (0.5 mL) subcut QWEEK #2 mL 11/21/24 02/22/25 Rx subcutaneous pen injector (Trulicity) handicap placard #1 ea 11/30/24 02/22/25 Rx blood-glucose sensor (FreeStyle #2 ea 12/12/24 02/22/25 Rx Jt 3 Plus Sensor device) promethazine-DM 6.25 mg-15 mg/5 mL 5 ml PO Q4-6H PRN cough #473 mL 01/03/25 02/22/25 Rx oral syrup pregabalin 200 mg capsule (Lyrica) 200 mg PO TID #270 caps 02/01/25 02/22/25 Rx ipratropium 0.5 mg-albuterol 3 mg 3 ml inhalation Q4H PRN PRN SOB 0 02/22/25 02/22/25 Rx (2.5 mg base)/3 mL nebulization /OR WHEEZING #180 mL soln oxymetazoline 0.05 % nasal spray 3 spray intranasal Q12H PRN 02/22/25 History (Afrin (oxymetazoline)) pantoprazole 40 mg tablet,delayed 40 mg PO QDAY #30 tabs 02/22/25 0 02/22/25 Rx release tizanidine 4 mg capsule 4 mg PO Q8H PRN muscle spasticity 02/22/25 02/22/25 Rx #60 caps Nurse's Note: Pt states he has had bad heartburn off and on for a rn long term care. Pt states the med prescribed did not help, so he dc'd awhile ago. Pt states it seems to happen if he eats anything. Pt states it gets worse if his sugar is high, pt also c/o esophageal sensitivity w/ fluids. Pt also c/o dysphagia thinks that rn long term care and more use of Afrin than he should. This has been going on a long time. Is not certain what (more content not included)... Normal [facility] Endocrinology Visit Reporton 01-30-2025 Endocrinology Visit Report [facility] [address] [place] [address] OFFICE VISIT Date of Service: 01/30/25 MR#: [id number] Acct: [id number] Name: YENNY GARCIA Rep #: [id number] : 1970 Provider: DARIUS dai Age/Sex: 54/M Location: [facility] Status: Signed Intake Vital Signs 12/12/24 13:25 12/14/24 12:52 01/18/25 14:15 01/30/25 13:46 Height 6 ft 1 in 6 ft 1 in 6 ft 1 in 6 ft 1 in Weight: 253 lb 4 oz 249 lb 8 oz BMI 33.4 32.9 BP 118/83 H Blood Pressure Location Lt brachial Position Sitting Pulse 89 Pulse Source Monitor Pulse Oximetry (%) 93 Oxygen Delivery Method room air Intake Visit Reasons: 6 Wk FU Chief Complaint: f/u diabetes Is patient in pain?: No Allergies bee pollen Adverse Reaction (Verified 01/30/25 13:47) throat swelling Medications ???Medication ???Instructions ???Recorded ???Confirmed ???Type fluoxetine 40 mg capsule 40 mg PO DAILY 05/13/21 01/30/25 H istory epinephrine 0.3 mg/0.3 mL 0.3 mg IM Q5-15M PRN 05/14/2101/19 History injection syringe nitroglycerin 0.4 mg sublingual 0.4 mg buccal Q5-15M PRN chest cipriano n 01/08/22 01/30/25 History tablet budesonide-formoterol HFA 160 2 puff inhalation BID #3 ea 01/30/25 Rx mcg-4.5 mcg/actuation aerosol inhaler (Symbicort) cetirizine 10 mg tablet 10 mg PO DAILY #90 tabs 05/19/24 0 01/30/25 Rx fluticasone propionate 50 1 spray intranasal BID #16 grams 0 05/19/24 01/30/25 Rx mcg/actuation nasal spray,suspension (Flonase Allergy Relief) tiotropium bromide 2.5 2 puff inhalation QDAY #3 ea 05/1901/30/25 Rx mcg/actuation mist for inhalation (Spiriva Respimat) insulin glargine 100 unit/mL (3 25 unit (0.25 mL) subcut BID #15 m L 07/20/24 01/30/25 Rx mL) subcutaneous pen (Lantus Solostar U-100 Insulin) spacer #1 ea 07/21/24 01/30/25 Rx Pulse ox meter #1 ea 07/26/24 01/30/25 Rx blood pressure kit-extra large #1 ea 07/26/24 01/30/25 Rx pen needle, diabetic 31 gauge x #100 ea 08/02/24 01/30/25 Rx 5/16 (Comfort EZ Pen Encinal) guaifenesin 1,200 mg tablet, 1,200 mg PO Q12H PRN 08/30/2401/19 History extended release 12 hr lidocaine 4 % topical patch 2 patch topical QDAY PRN pain #30 08/30/24 01/30/25 Rx (Salonpas (lidocaine)) ea magnesium oxide 400 mg (241.3 mg 400 mg PO QHS #30 tabs 08/30/24 Rx magnesium) tablet cyclobenzaprine 10 mg tablet 10 mg PO BID PRN muscle spasm #60 08/31/24 01/30/25 Rx tabs vitamin B complex 1 cap PO QDAY #30 caps 09/05/24 Rx montelukast 10 mg tablet 10 mg PO QPM #90 tabs 09/07/2409/14 Rx atorvastatin 20 mg tablet 20 mg PO QPM #90 tabs 10/17/2409/14 Rx empagliflozin 10 mg tablet 10 mg PO DAILY #90 tabs 10/17/24 0 01/30/25 Rx (Jardiance) lisinopril 20 mg tablet 20 mg PO DAILY #90 tabs 10/17/24 0 01/30/25 Rx metoprolol succinate 25 mg 25 mg PO QDAY #90 tabs 10/17/24 Rx tablet,extended release 24 hr insulin aspart U-100 100 unit/mL 25 unit (0.25 mL) subcut TID #22.5 10/31/24 01/30/25 Rx (3 mL) subcutaneous pen (Novolog mL FlexPen U-100 Insulin aspart) metformin 1,000 mg tablet 1,000 mg PO BID #180 tabs 10/31/24 01/30/25 Rx albuterol 90 mcg-budesonide 80 2 inh inhalation TID PRN shortness 11/01/24 01/30/25 Rx mcg/actuation HFA aerosol inhaler of breath #10.7 grams (Airsupra) naproxen 500 mg tablet 500 mg PO BID #60 tabs 11/01/24 Rx pregabalin 200 mg capsule (Lyrica) 200 mg PO TID #270 caps 11/01/24 01/30/25 Rx dulaglutide 4.5 mg/0.5 mL 4.5 mg (0.5 mL) subcut QWEEK #2 mL 11/21/24 01/30/25 Rx subcutaneous pen injector (Trulicity) handicap placard #1 ea 11/30/24 01/30/25 Rx blood-glucose sensor (FreeStyle #2 ea 12/12/24 01/30/25 Rx Jt 3 Plus Sensor device) ipratropium 0.5 mg-albuterol 3 mg 3 ml inhalation Q4H PRN PRN SOB 0 12/27/24 01/30/25 Rx (2.5 mg base)/3 mL nebulization /OR WHEEZING #180 mL soln promethazine-DM 6.25 mg-15 mg/5 mL 5 ml PO Q4-6H PRN cough #473 mL 01/03/25 01/30/25 Rx oral syrup PFSH Medical History (Updated 01/30/25 @ 14:22 by Myra Alvarado NP-C) Arteriosclerotic heart disease Obesity History of left tennis elbow Tobacco abuse Type 2 diabetes mellitus Dyslipidemia Acute anxiety LOUISE (obstructive sleep apnea) Nocturnal hypoxemia Polyneuropathy Hypertension Environmental and seasonal allergies Uncontrolled persistent asthma Chest pain, atypical Hyperglycemia Arthralgia of acromioclavicular joint Chronic sinusitis Non-compliance Surgical History History of cataract surgery S/P CABG (coronary artery bypass graft) (01/31/22) History of open heart surgery Histo (more content not included)... Normal [facility] Orthopedic Visit Reporton Orthopedic Visit Report [facility] [address] [place] [address] OFFICE VISIT Date of Service: 01/19/25 MR#: [id number] Acct: [id number] Name: YENNY GARCIA Rep #: [id number] : 1970 Provider: Dr. Jim phillips MD Age/Sex: 54/M Location: [facility] Status: Signed Intake Vital Signs 10/17/24 08:28 12/14/24 12:52 01/18/25 14:15 Height 6 ft 1 in 6 ft 1 in 6 ft 1 in Weight: 249 lb BMI 32.8 BP 118/78 Blood Pressure Location Lt brachial Position Sitting Respiration 16 Pulse 86 Pulse Source Monitor Temp 98.0 F Temp Source Temporal Pulse Oximetry (%) 93 Oxygen Delivery Method room air Intake Visit Reasons: BILATERAL WRISTS Allergies bee pollen Adverse Reaction (Verified 01/19/25 13:26) throat swelling Medications ???Medication ???Instructions ???Recorded ???Confirmed ???Type fluoxetine 40 mg capsule 40 mg PO DAILY 05/13/21 01/19/25 H istory epinephrine 0.3 mg/0.3 mL 0.3 mg IM Q5-15M PRN 05/14/21 0510/15 History injection syringe nitroglycerin 0.4 mg sublingual 0.4 mg buccal Q5-15M PRN chest cipriano n 01/08/22 01/19/25 History tablet budesonide-formoterol HFA 160 2 puff inhalation BID #3 ea 01/19/25 Rx mcg-4.5 mcg/actuation aerosol inhaler (Symbicort) cetirizine 10 mg tablet 10 mg PO DAILY #90 tabs 05/19/24 0 01/19/25 Rx fluticasone propionate 50 1 spray intranasal BID #16 grams 0 05/19/24 01/19/25 Rx mcg/actuation nasal spray,suspension (Flonase Allergy Relief) tiotropium bromide 2.5 2 puff inhalation QDAY #3 ea 05/1901/19/25 Rx mcg/actuation mist for inhalation (Spiriva Respimat) insulin glargine 100 unit/mL (3 25 unit (0.25 mL) subcut BID #15 m L 07/20/24 01/19/25 Rx mL) subcutaneous pen (Lantus Solostar U-100 Insulin) spacer #1 ea 07/21/24 01/19/25 Rx Pulse ox meter #1 ea 07/26/24 01/19/25 Rx blood pressure kit-extra large #1 ea 07/26/24 01/19/25 Rx pen needle, diabetic 31 gauge x #100 ea 08/02/24 01/19/25 Rx 5/16 (Comfort EZ Pen Encinal) guaifenesin 1,200 mg tablet, 1,200 mg PO Q12H PRN 08/30/24 0510/15 History extended release 12 hr lidocaine 4 % topical patch 2 patch topical QDAY PRN pain #30 08/30/24 01/19/25 Rx (Salonpas (lidocaine)) ea magnesium oxide 400 mg (241.3 mg 400 mg PO QHS #30 tabs 08/30/24 Rx magnesium) tablet cyclobenzaprine 10 mg tablet 10 mg PO BID PRN muscle spasm #60 08/31/24 01/19/25 Rx tabs vitamin B complex 1 cap PO QDAY #30 caps 09/05/24 Rx montelukast 10 mg tablet 10 mg PO QPM #90 tabs 09/07/2410/15 Rx atorvastatin 20 mg tablet 20 mg PO QPM #90 tabs 10/17/2410/15 Rx empagliflozin 10 mg tablet 10 mg PO DAILY #90 tabs 10/17/24 0 01/19/25 Rx (Jardiance) lisinopril 20 mg tablet 20 mg PO DAILY #90 tabs 10/17/24 0 01/19/25 Rx metoprolol succinate 25 mg 25 mg PO QDAY #90 tabs 10/17/24 Rx tablet,extended release 24 hr insulin aspart U-100 100 unit/mL 25 unit (0.25 mL) subcut TID #22.5 10/31/24 01/19/25 Rx (3 mL) subcutaneous pen (Novolog mL FlexPen U-100 Insulin aspart) metformin 1,000 mg tablet 1,000 mg PO BID #180 tabs 10/31/24 01/19/25 Rx albuterol 90 mcg-budesonide 80 2 inh inhalation TID PRN shortness 11/01/24 01/19/25 Rx mcg/actuation HFA aerosol inhaler of breath #10.7 grams (Airsupra) naproxen 500 mg tablet 500 mg PO BID #60 tabs 11/01/24 Rx pregabalin 200 mg capsule (Lyrica) 200 mg PO TID #270 caps 11/01/24 01/19/25 Rx dulaglutide 4.5 mg/0.5 mL 4.5 mg (0.5 mL) subcut QWEEK #2 mL 11/21/24 01/19/25 Rx subcutaneous pen injector (Trulicity) handicap placard #1 ea 11/30/24 01/19/25 Rx blood-glucose sensor (FreeStyle #2 ea 12/12/24 01/19/25 Rx Jt 3 Plus Sensor device) ipratropium 0.5 mg-albuterol 3 mg 3 ml inhalation Q4H PRN PRN SOB 0 12/27/24 01/19/25 Rx (2.5 mg base)/3 mL nebulization /OR WHEEZING #180 mL soln promethazine-DM 6.25 mg-15 mg/5 mL 5 ml PO Q4-6H PRN cough #473 mL 01/03/25 01/19/25 Rx oral syrup PFSH Medical History Arteriosclerotic heart disease Obesity History of left tennis elbow Tobacco abuse Type 2 diabetes mellitus Dyslipidemia Acute anxiety LOUISE (obstructive sleep apnea) Nocturnal hypoxemia Polyneuropathy Hypertension Environmental and seasonal allergies Uncontrolled persistent asthma Chest pain, atypical Hyperglycemia Arthralgia of acromioclavicular joint Chronic sinusitis Non-compliance Surgical History History of cataract surgery S/P CABG (coronary artery bypass graft) (01/31/22) History of open heart surgery History of arthroscopic knee surgery (more content not included)... Normal [facility] HIP, UNI W/ Pelvis 2-3 Views on 01-18-2025 HIP, UNI W/ Pelvis 2-3 Views [facility] [address] [place] [address] HIP, UNI W/ Pelvis 2-3 Views MR#: [id number] Acct: [id number] Name: GIORGIOSHARYNYENNY LOPEZ Darwin Rep #: [id number] : 1970 M 54 From: Rodney Maldonado MD PCP: Dr. Gilson Hawk DO Status: DEP AMB Study: HIP, UNI W/ Pelvis 2-3 Views Date of Exam: Exam# [id number] Ordering Dr: Weston Browne DO PROCEDURE: HIP, UNI W/ PELVIS 2-3 VIEWS 01/18/2025 REASON FOR EXAM: CHRONIC HIP PAIN TECHNIQUE: Three views of the right hip FINDINGS: Bones: No acute fracture or dislocation. Joints: Normal alignment. Mild degenerative changes. Soft tissues: Soft tissues are unremarkable. Other: RAD/HIP, UNI W/ Pelvis 2-3 Views IMPRESSION: DEGENERATIVE OSTEOARTHROSIS. NO ACUTE FINDINGS. Reading Location: [id number] CC: Dr. Gilson Hawk DO; Dr. Weston Browne DO Overlock Operator: Signed Normal [facility] Lumbar Spine 2 or 3 Viewson 01-18-2025 Lumbar Spine 2 or 3 Views [facility] [address] [place], [place] [id number] Lumbar Spine 2 or 3 Views MR#: [id number] Acct: [id number] Name: YENNY GARCIA Rep #: [id number] : 1970 M 54 From: Rodney Maldonado MD PCP: Dr. Gilson Hawk DO Status: DEP AMB Study: Lumbar Spine 2 or 3 Views Date of Exam: Exam# [id number] Ordering Dr: Weston Browne DO PROCEDURE: LUMBAR SPINE 2 OR 3 VIEWS 01/18/2025 REASON FOR EXAM: CHRONIC RIGHT HIP PAIN TECHNIQUE: 2 view(s) of the lumbar spine FINDINGS: Vertebrae: No acute fracture. Discs: Mild multilevel disc space narrowing. Alignment: 10 mm of anterolisthesis of L5 on S1 likely from spondylolisthesis. Other: RAD/Lumbar Spine 2 or 3 Views IMPRESSION: Suspect L5 spondylolysis with grade 2 spondylolisthesis of L5 on S1. Mild diffuse degenerative disc disease. Reading Location: [id number] CC: Dr. Gilson Hawk DO; Dr. Weston Browne DO Overlock Operator: Signed Normal [facility] Orthopedic Visit Reporton Orthopedic Visit Report [facility] [address] [place] [address] OFFICE VISIT Date of Service: 01/18/25 MR#: [id number] Acct: [id number] Name: YENNY GARCIA Rep #: [id number] : 1970 Provider: Dr. Weston wolfe DO Age/Sex: 54/M Location: [facility] Status: Signed Intake Vital Signs 12/14/24 12:52 01/18/25 14:15 Height 6 ft 1 in 6 ft 1 in Weight: 249 lb 253 lb 4 oz BMI 32.8 33.4 BP 118/78 Blood Pressure Location Lt brachial Position Sitting Respiration 16 Pulse 86 Pulse Source Monitor Temp 98.0 F Temp Source Temporal Pulse Oximetry (%) 93 Oxygen Delivery Method room air Intake Visit Reasons: RIGHT HIP Chief Complaint: Right Hip Pain Accompanied by: Self Is patient in pain?: Yes Pain scale (1-10): 8 Allergies bee pollen Adverse Reaction (Verified 01/18/25 14:15) throat swelling Medications ???Medication ???Instructions ???Recorded ???Confirmed ???Type fluoxetine 40 mg capsule 40 mg PO DAILY 05/13/21 01/18/25 H istory epinephrine 0.3 mg/0.3 mL 0.3 mg IM Q5-15M PRN 05/14/2112/22 History injection syringe nitroglycerin 0.4 mg sublingual 0.4 mg buccal Q5-15M PRN chest cipriano n 01/08/22 01/18/25 History tablet budesonide-formoterol HFA 160 2 puff inhalation BID #3 ea 01/18/25 Rx mcg-4.5 mcg/actuation aerosol inhaler (Symbicort) cetirizine 10 mg tablet 10 mg PO DAILY #90 tabs 05/19/24 0 01/18/25 Rx fluticasone propionate 50 1 spray intranasal BID #16 grams 0 05/19/24 01/18/25 Rx mcg/actuation nasal spray,suspension (Flonase Allergy Relief) tiotropium bromide 2.5 2 puff inhalation QDAY #3 ea 05/1901/18/25 Rx mcg/actuation mist for inhalation (Spiriva Respimat) insulin glargine 100 unit/mL (3 25 unit (0.25 mL) subcut BID #15 m L 07/20/24 01/18/25 Rx mL) subcutaneous pen (Lantus Solostar U-100 Insulin) spacer #1 ea 07/21/24 01/18/25 Rx Pulse ox meter #1 ea 07/26/24 01/18/25 Rx blood pressure kit-extra large #1 ea 07/26/24 01/18/25 Rx pen needle, diabetic 31 gauge x #100 ea 08/02/24 01/18/25 Rx 5/16 (Comfort EZ Pen Encinal) guaifenesin 1,200 mg tablet, 1,200 mg PO Q12H PRN 08/30/2412/22 History extended release 12 hr lidocaine 4 % topical patch 2 patch topical QDAY PRN pain #30 08/30/24 01/18/25 Rx (Salonpas (lidocaine)) ea magnesium oxide 400 mg (241.3 mg 400 mg PO QHS #30 tabs 08/30/24 Rx magnesium) tablet cyclobenzaprine 10 mg tablet 10 mg PO BID PRN muscle spasm #60 08/31/24 01/18/25 Rx tabs vitamin B complex 1 cap PO QDAY #30 caps 09/05/24 Rx montelukast 10 mg tablet 10 mg PO QPM #90 tabs 09/07/24 Rx atorvastatin 20 mg tablet 20 mg PO QPM #90 tabs 10/17/24 Rx empagliflozin 10 mg tablet 10 mg PO DAILY #90 tabs 10/17/24 0 01/18/25 Rx (Jardiance) lisinopril 20 mg tablet 20 mg PO DAILY #90 tabs 10/17/24 0 01/18/25 Rx metoprolol succinate 25 mg 25 mg PO QDAY #90 tabs 10/17/24 Rx tablet,extended release 24 hr insulin aspart U-100 100 unit/mL 25 unit (0.25 mL) subcut TID #22.5 10/31/24 01/18/25 Rx (3 mL) subcutaneous pen (Novolog mL FlexPen U-100 Insulin aspart) metformin 1,000 mg tablet 1,000 mg PO BID #180 tabs 10/31/24 01/18/25 Rx albuterol 90 mcg-budesonide 80 2 inh inhalation TID PRN shortness 11/01/24 01/18/25 Rx mcg/actuation HFA aerosol inhaler of breath #10.7 grams (Airsupra) naproxen 500 mg tablet 500 mg PO BID #60 tabs 11/01/24 Rx pregabalin 200 mg capsule (Lyrica) 200 mg PO TID #270 caps 11/01/24 01/18/25 Rx dulaglutide 4.5 mg/0.5 mL 4.5 mg (0.5 mL) subcut QWEEK #2 mL 11/21/24 01/18/25 Rx subcutaneous pen injector (Trulicity) handicap placard #1 ea 11/30/24 01/18/25 Rx blood-glucose sensor (FreeStyle #2 ea 12/12/24 01/18/25 Rx Jt 3 Plus Sensor device) ipratropium 0.5 mg-albuterol 3 mg 3 ml inhalation Q4H PRN PRN SOB 0 12/27/24 01/18/25 Rx (2.5 mg base)/3 mL nebulization /OR WHEEZING #180 mL soln promethazine-DM 6.25 mg-15 mg/5 mL 5 ml PO Q4-6H PRN cough #473 mL 01/03/25 01/18/25 Rx oral syrup PFSH Medical History Arteriosclerotic heart disease Obesity History of left tennis elbow Tobacco abuse Type 2 diabetes mellitus Dyslipidemia Acute anxiety LOUISE (obstructive sleep apnea) Nocturnal hypoxemia Polyneuropathy Hypertension Environmental and seasonal allergies Uncontrolled persistent asthma Chest pain, atypical Hyperglycemia Arthralgia of acromioclavicular joint Chronic sinusitis Non-compliance Surgical History History of cataract surgery S/P CABG (coronary artery bypass gra (more content not included)... Normal [facility] Neurology Visit Reporton Neurology Visit Report [facility] [address], [address] [place] [address] OFFICE VISIT Date of Service: 12/14/24 MR#: [id number] Acct: [id number] Name: YENNY GARCIA Rep #: [id number] : 1970 Provider: Dr. Weston walton MD Age/Sex: 54/M Location: [facility] [facility]. Status: Signed HPI HPI Details: The patient is a 54-year-old right handed male who presents for a 3 month follow up on Diabetic neuropathy, Carpal tunnel syndrome on both sides, Tremor, and Tinnitus. Patient presents with his for evaluation of painful peripheral neuropathy. On last visit dated 08/30/2024 patient was noted to have glucoses greater than 340 fairly typically. Patient had a markedly elevated hemoglobin A1c. Patient had multiple issues associated with hypercoagulability. His presenting complaint was painful diabetic peripheral neuropathy. He has been on escalating doses of pregabalin. Patient was given a trial of Salonpas to his feet however insurance switched him to a Lidoderm patch. He noted that did provide brief relief for about 10 minutes according to him. He has pain then developed back. Patient did have B12, B1 and other lab values obtained which were within acceptable range with the exception being of glucose and hemoglobin A1c's. At this point in time patient appears to be more animated and active. He has a new glucometer monitor on his arm and seems to be under much better control. He tells me his glucoses are typically in the range of 150. ROS: No specific changes in review of systems compared to last visit except that he is complaining of more right hip pain. He is due to see an orthopedist soon who will evaluate his right hip. Patient continues to have painful diabetic peripheral neuropathy. The Lidoderm patch although helpful did not have the duration necessary. He is Medicaid will not pay for increasing his pregabalin dose which his primary care is managing. Patient still has some dizziness is difficult to say if it is same better or worse. Most likely unchanged. He also notes recent memory defect. This is also unchanged. Exam Const Other: Blood pressure 118/78 pulse 86 respiration 16 temperature 98.0 O2 sat 93%. Patient's BMI is 32.8%. Neurologic examination: Mental status: Patient is awake alert cooperative. He is oriented. He complains of recent memory defect but appears functional at this time. Language is intact. CN II-XII: He has just had cataract surgery. He is wearing sunglasses. Light hurts his eyes at this time. Eyes not examined. Symmetric facial expression noted. Hearing swallowing phonation tongue normal. Motor exam: No particular focal weakness at this time noted. Cerebellar function: No tremors or ataxia. Patient is off balance when he attempts to walk but this may be related to severe peripheral neuropathy and difficulty proprioception. Reflexes are suppressed. Sensory exam shows he has great deal of pain below the legs involving predominantly the feet. Station gait shows the patient is ambulatory but unsteady due to advanced neuropathy of the feet. Assessment and Plan Assessment and Plan (1) Diabetic neuropathy associated with diabetes mellitus due to underlying condition: Status: Acute Qualifiers: Diabetes mellitus complication detail: diabetic polyneuropathy Qualified Code(s): E08.42 - Diabetes mellitus due to underlying condition with diabetic polyneuropathy Comment: Patient has painful diabetic peripheral neuropathy both feet longstanding refractory to most management issues 12/14/2024: Patient has continued painful diabetic peripheral neuropathy. He did get some response with Lidoderm patches but it did not last long enough. Patient has much better glucose control at this time. He would need to continue for 3 to 6 months of good diabetic control before he may see a change in his neuropathy. He is being off balance dizzy will be deferred in his memory deficit will be deferred until he can achieve better diabetic control over matter of months. These abnormalities may improve with good glucose control over the next 3 to 6 months as well. Plan: 1. Continue with good diabetic control. 2. Patient to see orthopedist soon regarding his right hip. 3. Patient will follow-up with neurology clinic on a as needed basis for the time being. 4. Patient referred to pain management for further control of his symptoms. Orders: Referrals Pain Management E08.40 - Diabetes mellitus due to underlying condition with diabetic neuropathy, unspecified Intake Vital Signs 08/30/24 09:05 11/01/24 13:14 12/12/24 13:25 12/14/24 12:52 Height 6 ft 1 in 6 ft 1 in 6 ft 1 in 6 ft 1 in Weight: 249 lb BMI 32.8 BP 118/78 Blood Pressure Location Lt brachial Position Sitting Respiration 16 Pulse 86 Pulse Source Monitor Temp 98.0 F Temp Sour (more content not included)... [facility] CDSon 12-13-2024 CDS DATE: 12/13/2024 HOSPITAL COURSE: The patient entered the hospital on 12/13, dense cataract, right eye. He underwent a phacoemulsification procedure, placement of posterior chamber intraocular lens, no complications, discharged in good condition. Only homegoing instructions were to take a Diamox Sequels that evening. He was also instructed to resume his regular and p.r.n. medications. He was also instructed to leave the patch and shield in place. As stated above, he tolerated the procedure well, no complications, discharged in good condition and will be seen in the office in 24 hours for followup. TM/JIMBO TID: [id number] DICTATING PROVIDER: Ananya Hays [facility] COPon 12-13-2024 PLAYGROUND ATTENDANT DATE: 12/13/2024 PREOPERATIVE DIAGNOSIS: Cataract, right eye. POSTOPERATIVE DIAGNOSIS: Cataract, right eye. OPERATION: Phacoemulsification of the right eye, placement of posterior chamber [place] intraocular lens. ANESTHESIA: General. HEAD BO[employer] GOLF COACH: None. COMPLICATIONS: None. LOSS OF BLOOD: None. SPECIMENS: None. INDICATIONS FOR PROCEDURE: This patient has central posterior subcapsular cataract, right eye. Best visual acuity is 20/50. The patient is a diabetic, but demonstrates no diabetic cystoid macular edema. There is no other retinopathy. He is having difficulty with reading. I expect significant improvement following the surgery. OPERATIVE REPORT: The patient was brought to the operating room and identified as the patient, having cataract surgery, right eye. The patient was placed under general anesthetic and prepped and draped in the usual sterile fashion for right eye procedure. Time-out performed. Lid speculum was placed to hold the lids back. Attention was focused on the superior nasal quadrant. Cautery was used on the conjunctiva just posterior to the limbus. Small opening was made in the conjunctiva with Josey scissors. Following this, a blunt 19-gauge sub-Tenon's cannula was introduced and anesthetic solution was injected, 2% Xylocaine with epinephrine mixed half and half 0.5% Marcaine. This was done to help alleviate postoperative pain. After this, a small fornix-based conjunctival flap was made superiorly. Hemostasis achieved with bipolar cautery. Groove incision made with 6900 blade and beveled clear cornea. Anterior chamber was entered with a 2.4 mm keratome. Viscoat was instilled. Counterpuncture incision made with sideport blade. Bent 25-gauge needle was then used to fashion the first part of an anterior capsular flap. Circular capsulorrhexis then completed. The nucleus was loosened from its cortical attachments using hydrodissection. Phacoemulsification tip was introduced in the eye and the nucleus was emulsified using the 4-quadrant crack technique. Irrigation aspiration function was then used to remove the remainder of the cortex. Posterior capsule was polished. Provisc was used to inflate the capsular bag and anterior chamber. Foldable Clareon posterior chamber implant placed in capsular bag without difficulty. Irrigation and aspiration function was then used to remove all of the Provisc and Viscoat. Balanced salt solution was injected through the sideport incision. Wound was checked for tightness, found to be tight. Kefzol, Solu-Medrol and tobramycin injected subconjunctivally inferiorly. Lid speculum was removed. A drop of Cosopt and erythromycin ointment placed in the eye. Eye pad shield placed over the eye. The patient awoke and went to recovery room in good condition. He tolerated the procedure well. No complications. TM/RAH TID: [id number] DICTATING PROVIDER: Ananya Gibson [facility] Endocrinology Visit Reporton 12-12-2024 Endocrinology Visit Report [facility] [address] [place] [address] OFFICE VISIT Date of Service: 12/12/24 MR#: [id number] Acct: [id number] Name: YENNY GARCIA Rep #: [id number] : 1970 Provider: DARIUS dai Age/Sex: 54/M Location: [facility] Status: Signed Intake Vital Signs 10/31/24 14:22 11/01/24 13:14 12/12/24 13:25 Height 6 ft 1 in 6 ft 1 in 6 ft 1 in Weight: 249 lb 8 oz 245 lb 8 oz 250 lb 6 oz BMI 32.9 32.3 33.0 BP 114/71 122/70 H 126/74 H Blood Pressure Location Rt brachial Rt brachial Lt brachial Position Sitting Sitting Sitting Respiration 16 Pulse 84 88 95 Pulse Source Monitor Monitor Monitor Temp 97.8 F Temp Source Temporal Pulse Oximetry (%) 91 93 92 Oxygen Delivery Method room air room air room air Intake Visit Reasons: 6 Wk FU Chief Complaint: f/u diabetes Allergies bee pollen Adverse Reaction (Verified 12/12/24 13:29) throat swelling Medications ???Medication ???Instructions ???Recorded ???Confirmed ???Type fluoxetine 40 mg capsule 40 mg PO DAILY 05/13/21 12/12/24 H istory epinephrine 0.3 mg/0.3 mL 0.3 mg IM Q5-15M PRN 05/14/2111/20 History injection syringe nitroglycerin 0.4 mg sublingual 0.4 mg buccal Q5-15M PRN chest cipriano n 01/08/22 12/12/24 History tablet budesonide-formoterol HFA 160 2 puff inhalation BID #3 ea 12/12/24 Rx mcg-4.5 mcg/actuation aerosol inhaler (Symbicort) cetirizine 10 mg tablet 10 mg PO DAILY #90 tabs 05/19/24 0 12/12/24 Rx fluticasone propionate 50 1 spray intranasal BID #16 grams 0 05/19/24 12/12/24 Rx mcg/actuation nasal spray,suspension (Flonase Allergy Relief) tiotropium bromide 2.5 2 puff inhalation QDAY #3 ea 05/1912/12/24 Rx mcg/actuation mist for inhalation (Spiriva Respimat) insulin glargine 100 unit/mL (3 25 unit (0.25 mL) subcut BID #15 m L 07/20/24 12/12/24 Rx mL) subcutaneous pen (Lantus Solostar U-100 Insulin) spacer #1 ea 07/21/24 12/12/24 Rx Pulse ox meter #1 ea 07/26/24 12/12/24 Rx blood pressure kit-extra large #1 ea 07/26/24 12/12/24 Rx pen needle, diabetic 31 gauge x #100 ea 08/02/24 12/12/24 Rx 5/16 (Comfort EZ Pen Encinal) guaifenesin 1,200 mg tablet, 1,200 mg PO Q12H PRN 08/30/2411/20 History extended release 12 hr lidocaine 4 % topical patch 2 patch topical QDAY PRN pain #30 08/30/24 12/12/24 Rx (Salonpas (lidocaine)) ea magnesium oxide 400 mg (241.3 mg 400 mg PO QHS #30 tabs 08/30/24 Rx magnesium) tablet cyclobenzaprine 10 mg tablet 10 mg PO BID PRN muscle spasm #60 08/31/24 12/12/24 Rx tabs vitamin B complex 1 cap PO QDAY #30 caps 09/05/24 Rx montelukast 10 mg tablet 10 mg PO QPM #90 tabs 09/07/24 Rx atorvastatin 20 mg tablet 20 mg PO QPM #90 tabs 10/17/24 Rx empagliflozin 10 mg tablet 10 mg PO DAILY #90 tabs 10/17/24 0 12/12/24 Rx (Jardiance) lisinopril 20 mg tablet 20 mg PO DAILY #90 tabs 10/17/24 0 12/12/24 Rx metoprolol succinate 25 mg 25 mg PO QDAY #90 tabs 10/17/24 Rx tablet,extended release 24 hr insulin aspart U-100 100 unit/mL 25 unit (0.25 mL) subcut TID #22.5 10/31/24 12/12/24 Rx (3 mL) subcutaneous pen (Novolog mL FlexPen U-100 Insulin aspart) metformin 1,000 mg tablet 1,000 mg PO BID #180 tabs 10/31/24 12/12/24 Rx albuterol 90 mcg-budesonide 80 2 inh inhalation TID PRN shortness 11/01/24 12/12/24 Rx mcg/actuation HFA aerosol inhaler of breath #10.7 grams (Airsupra) naproxen 500 mg tablet 500 mg PO BID #60 tabs 11/01/24 Rx pregabalin 200 mg capsule (Lyrica) 200 mg PO TID #270 caps 11/01/24 12/12/24 Rx promethazine-DM 6.25 mg-15 mg/5 mL 5 ml PO Q4-6H PRN cough #473 mL 11/01/24 12/12/24 Rx oral syrup ipratropium 0.5 mg-albuterol 3 mg 3 ml inhalation Q4H PRN PRN SOB 0 11/02/24 12/12/24 Rx (2.5 mg base)/3 mL nebulization /OR WHEEZING #180 mL soln dulaglutide 4.5 mg/0.5 mL 4.5 mg (0.5 mL) subcut QWEEK #2 mL 11/21/24 12/12/24 Rx subcutaneous pen injector (Trulicity) handicap placard #1 ea 11/30/24 12/12/24 Rx blood-glucose sensor (FreeStyle #2 ea 12/12/24 12/12/24 Rx Jt 3 Plus Sensor device) [facility] Medical History Arteriosclerotic heart disease Obesity History of left tennis elbow Tobacco abuse Type 2 diabetes mellitus Dyslipidemia Acute anxiety LOUISE (obstructive sleep apnea) Nocturnal hypoxemia Polyneuropathy Hypertension Environmental and seasonal allergies Uncontrolled persistent asthma Chest pain, atypical Hyperglycemia Arthralgia of acromioclavicular joint Chronic sinusitis Non-compliance Surgical History ... Normal [facility] Laboratory - Hematology and Cell countsOrdered By: Myra Alvarado on 12-12-2024 HbA1c (Bld) [Mass fraction] 10.3 % High 4.2-6.3 [facility] Basic Metabolic Panelon 11-19 Anion gap [Moles/Vol] 13.8 mmol/L Normal 8.0-16.0 [facility] Comment on above: Performed By: #### B MP #### [facility] [address] [place] [address] Calcium [Mass/Vol] 9.1 mg/dL Normal 8.2-10.0 [facility] Comment on above: Performed By: #### B MP #### [facility] [address] [place] [address] Chloride [Moles/Vol] 103 mmol/L Normal 94-110 [facility] Comment on above: Performed By: #### B MP #### [facility] [address] [place] [address] CO2 [Moles/Vol] 25 mmol/L Normal 21-34 [facility] Comment on above: Performed By: #### B MP #### [facility] [address] [place] [address] Creatinine [Mass/Vol] 0.90 mg/dL Normal 0.50-1.17 [facility] Comment on above: Performed By: #### B MP #### [facility] [address] [place] [address] EGFR Other Races >60 Normal >60 [facility] Comment on above: Performed By: #### B MP #### [facility] [address] [place] [address] GFR/1.73 sq M.predicted among blacks MDRD (S/P/Bld) [Vol rate/Area] mL/min/{1.73_m2} Normal >60 [facility] Comment on above: Result Comment: Event Executive aguilar Kidney Disease less than 60 mL/min/1.73 m2 Kidney Failure less than 15 mL/min/1.73 m2 Average estimated GFR by age: 50-59 years 93 mL/min/1.73 m2 Performed By: #### B MP #### [address] [place] [address] Glucose [Mass/Vol] 197 mg/dL High 65-100 [facility] Comment on above: Performed By: #### B MP #### [address] [place] [address] Potassium [Moles/Vol] 3.8 mmol/L Normal 3.3-5.1 [facility] Comment on above: Performed By: #### B MP #### [address] [place] [address] Sodium [Moles/Vol] 138 mmol/L Normal 132-145 [facility] Comment on above: Performed By: #### B MP #### [address] [place] [address] Urea nitrogen [Mass/Vol] 19.4 mg/dL Normal 3.2-26.9 [facility] Comment on above: Performed By: #### B MP #### [address] [place] [address] Urea nitrogen/Creatinine [Mass ratio] 22 mg/mg High 6-20 [facility] Comment on above: Performed By: #### B MP #### [address] [place] [address] Orthopedic Visit Reporton Orthopedic Visit Report [facility] [place] [address] OFFICE VISIT Date of Service: 11/07/24 MR#: [id number] Acct: [id number] Name: YENNY GARCIA Rep #: [id number] : 1970 Provider: Dr. Weston Oden so DO Age/Sex: 54/M Location: [facility] Status: Signed Intake Vital Signs 11/01/24 13:14 Height 6 ft 1 in Weight: 245 lb 8 oz BMI 32.3 BP 122/70 H Blood Pressure Location Rt brachial Position Sitting Respiration 16 Pulse 88 Pulse Source Monitor Temp 97.8 F Temp Source Temporal Pulse Oximetry (%) 93 Oxygen Delivery Method room air Intake Visit Reasons: RIGHT HIP Chief Complaint: f/u diabetes Allergies bee pollen Adverse Reaction (Verified 11/01/24 13:11) throat swelling PFSH Medical History Arteriosclerotic heart disease Obesity History of left tennis elbow Tobacco abuse Type 2 diabetes mellitus Dyslipidemia Acute anxiety LOUISE (obstructive sleep apnea) Nocturnal hypoxemia Polyneuropathy Hypertension Environmental and seasonal allergies Uncontrolled persistent asthma Chest pain, atypical Hyperglycemia Arthralgia of acromioclavicular joint Chronic sinusitis Non-compliance Surgical History History of cataract surgery S/P CABG (coronary artery bypass graft) (01/31/22) History of open heart surgery History of arthroscopic knee surgery Family History Mother Cancer Social History adopted: No household members: spouse housing: house current occupational status: unemployed Smoking Status: Current every day smoker tobacco type: cigarettes Tobacco: How many years used: 34 quit status: considering quitting alcohol intake: former details: has not drank alcohol in 4 or 5 years substance use type: does not use diet: diabetic caffeine: Yes (On avg 1 cup coffee daily and a sugar free soda) Type: carbonated beverages and coffee eating out: rarely or never what type of physical activity do you participate in: walking frequency: daily duration: < 15 minutes/day seatbelt use: always do you feel safe at home: Yes HPI RIGHT HIP Details: This documentation accurately reflects the service provided and the decisions made by me, Dr. Weston Browne, DO 11/07/24 0844. Part of today???s visit was documented by [ ], acting as scribe. YENNY GARCIA is a 54 year old M with medical history significant for but not limited to COPD, nicotine dependence, coronary artery disease, obesity, bilateral carpal tunnel syndrome, diabetes mellitus, diabetic neuropathy , dyslipidemia, anxiety, LOUISE, polyneuropathy, hypertension, uncontrolled persistent asthma chronic sinusitis, noncompliance, here today for pt no showed for this appointment Coding Level of Care Code No Charge 11/07/24 1619 Date Weston Browne DO Cosigner Signature: Date (if applicable) CC: Normal [facility] Internal Medicine Office Vis laure 11-01-2024 Internal Medicine Office Visit [facility] [address] [place] [address] OFFICE VISIT Date of Service: 11/01/24 MR#: [id number] Acct: [id number] Name: YENNY GARCIA Rep #: [id number] : 1970 Provider: Dr. Gilson anderson DO Age/Sex: 54/M Location: [facility] Status: Signed Intake Vital Signs 08/31/24 10:15 10/31/24 14:22 11/01/24 13:14 Height 6 ft 1 in 6 ft 1 in 6 ft 1 in Weight: 245 lb 8 oz BMI 32.3 BP 122/70 H Blood Pressure Location Rt brachial Position Sitting Respiration 16 Pulse 88 Pulse Source Monitor Temp 97.8 F Temp Source Temporal Pulse Oximetry (%) 93 Oxygen Delivery Method room air Intake Visit Reasons: 2 M FU Chief Complaint: f/u diabetes Youth Advocate Required: No Accompanied by: Self Is patient in pain?: No Allergies bee pollen Adverse Reaction (Verified 11/01/24 13:11) throat swelling Medications ???Medication ???Instructions ???Recorded ???Confirmed ???Type fluoxetine 40 mg capsule 40 mg PO DAILY 05/13/21 11/01/24 H istory glipizide 10 mg tablet 10 mg PO DAILY 05/13/21 11/01/24 H istory epinephrine 0.3 mg/0.3 mL 0.3 mg IM Q5-15M PRN 05/14/2110/22 History injection syringe nitroglycerin 0.4 mg sublingual 0.4 mg buccal Q5-15M PRN chest cipriano n 01/08/22 11/01/24 History tablet budesonide-formoterol HFA 160 2 puff inhalation BID #3 ea 11/01/24 Rx mcg-4.5 mcg/actuation aerosol inhaler (Symbicort) cetirizine 10 mg tablet 10 mg PO DAILY #90 tabs 05/19/24 0 11/01/24 Rx fluticasone propionate 50 1 spray intranasal BID #16 grams 0 05/19/24 11/01/24 Rx mcg/actuation nasal spray,suspension (Flonase Allergy Relief) tiotropium bromide 2.5 2 puff inhalation QDAY #3 ea 05/1911/01/24 Rx mcg/actuation mist for inhalation (Spiriva Respimat) insulin glargine 100 unit/mL (3 25 unit (0.25 mL) subcut BID #15 m L 07/20/24 11/01/24 Rx mL) subcutaneous pen (Lantus Solostar U-100 Insulin) spacer #1 ea 07/21/24 11/01/24 Rx Pulse ox meter #1 ea 07/26/24 11/01/24 Rx blood pressure kit-extra large #1 ea 07/26/24 11/01/24 Rx pen needle, diabetic 31 gauge x #100 ea 08/02/24 11/01/24 Rx 5/16 (Comfort EZ Pen Encinal) guaifenesin 1,200 mg tablet, 1,200 mg PO Q12H PRN 08/30/2410/22 History extended release 12 hr lidocaine 4 % topical patch 2 patch topical QDAY PRN pain #30 08/30/24 11/01/24 Rx (Salonpas (lidocaine)) ea magnesium oxide 400 mg (241.3 mg 400 mg PO QHS #30 tabs 08/30/24 Rx magnesium) tablet blood-glucose meter,continuous #1 ea 08/31/24 11/01/24 Rx (Dexcom G7 Caption Writer) cyclobenzaprine 10 mg tablet 10 mg PO BID PRN muscle spasm #60 08/31/24 11/01/24 Rx tabs vitamin B complex 1 cap PO QDAY #30 caps 09/05/24 Rx montelukast 10 mg tablet 10 mg PO QPM #90 tabs 09/07/2408/15 Rx ipratropium 0.5 mg-albuterol 3 mg 3 ml inhalation Q4H PRN PRN SOB 1 11/13/23 11/01/24 Rx (2.5 mg base)/3 mL nebulization /OR WHEEZING #180 mL soln atorvastatin 20 mg tablet 20 mg PO QPM #90 tabs 10/17/2408/15 Rx empagliflozin 10 mg tablet 10 mg PO DAILY #90 tabs 10/17/24 0 11/01/24 Rx (Jardiance) lisinopril 20 mg tablet 20 mg PO DAILY #90 tabs 10/17/24 0 11/01/24 Rx metoprolol succinate 25 mg 25 mg PO QDAY #90 tabs 10/17/24 Rx tablet,extended release 24 hr insulin aspart U-100 100 unit/mL 25 unit (0.25 mL) subcut TID #22.5 10/31/24 11/01/24 Rx (3 mL) subcutaneous pen (Novolog mL FlexPen U-100 Insulin aspart) metformin 1,000 mg tablet 1,000 mg PO BID #180 tabs 10/31/24 11/01/24 Rx tirzepatide 2.5 mg/0.5 mL 2.5 mg (0.5 mL) subcut QWEEK #2 mL 10/31/24 11/01/24 Rx subcutaneous pen injector (Maritza) albuterol 90 mcg-budesonide 80 2 inh inhalation TID PRN shortness 11/01/24 11/01/24 Rx mcg/actuation HFA aerosol inhaler of breath #10.7 grams (Airsupra) naproxen 500 mg tablet 500 mg PO BID #60 tabs 11/01/24 Rx pregabalin 200 mg capsule (Lyrica) 200 mg PO TID #270 caps 11/01/24 11/01/24 Rx promethazine-DM 6.25 mg-15 mg/5 mL 5 ml PO Q4-6H PRN cough #473 mL 11/01/24 11/01/24 Rx oral syrup Have you fallen in the past year?: No PFSH Medical History Arteriosclerotic heart disease Obesity History of left tennis elbow Tobacco abuse Type 2 diabetes mellitus Dyslipidemia Acute anxiety LOUISE (obstructive sleep apnea) Nocturnal hypoxemia Polyneuropathy Hypertension Environmental and seasonal allergies Uncontrolled persistent asthma Chest pain, atypical Hyperglycemia Arthralgia of acromioclavicular joint Chronic sinusitis Non-compliance Surgical History History of cataract surgery S/P CABG (cor (more content not included)... Normal [facility] Endocrinology Visit Reporton 10-31-2024 Endocrinology Visit Report [facility] [address] [place] [address] OFFICE VISIT Date of Service: 10/31/24 MR#: [id number] Acct: [id number] Name: ALYSSAJOHNYENNY Darwin Rep #: [id number] : 1970 Provider: DARIUS dai Age/Sex: 54/M Location: [facility] Status: Signed Intake Vital Signs 09/06/24 09:07 10/17/24 08:28 10/31/24 14:22 Height 6 ft 1 in 6 ft 1 in 6 ft 1 in Weight: 249 lb 249 lb 8 oz BMI 32.8 32.9 BP 129/89 H 114/71 Blood Pressure Location Lt brachial Rt brachial Position Sitting Sitting Respiration 18 Pulse 93 84 Pulse Source NIBP Monitor Pulse Oximetry (%) 91 Oxygen Delivery Method room air Intake Visit Reasons: Diabetes Chief Complaint: establish care- diabetes Is patient in pain?: No Allergies bee pollen Adverse Reaction (Verified 10/31/24 14:24) throat swelling Medications ???Medication ???Instructions ???Recorded ???Confirmed ???Type fluoxetine 40 mg capsule 40 mg PO DAILY 05/13/21 10/31/24 H istory glipizide 10 mg tablet 10 mg PO DAILY 05/13/21 10/31/24 H istory epinephrine 0.3 mg/0.3 mL 0.3 mg IM Q5-15M PRN 05/14/2110/22 History injection syringe nitroglycerin 0.4 mg sublingual 0.4 mg buccal Q5-15M PRN chest cipriano n 01/08/22 10/31/24 History tablet budesonide-formoterol HFA 160 2 puff inhalation BID #3 ea 10/31/24 Rx mcg-4.5 mcg/actuation aerosol inhaler (Symbicort) cetirizine 10 mg tablet 10 mg PO DAILY #90 tabs 05/19/24 0 10/31/24 Rx fluticasone propionate 50 1 spray intranasal BID #16 grams 0 05/19/24 10/31/24 Rx mcg/actuation nasal spray,suspension (Flonase Allergy Relief) tiotropium bromide 2.5 2 puff inhalation QDAY #3 ea 05/1910/31/24 Rx mcg/actuation mist for inhalation (Spiriva Respimat) insulin glargine 100 unit/mL (3 25 unit (0.25 mL) subcut BID #15 m L 07/20/24 10/31/24 Rx mL) subcutaneous pen (Lantus Solostar U-100 Insulin) spacer #1 ea 07/21/24 10/31/24 Rx Pulse ox meter #1 ea 07/26/24 10/31/24 Rx blood pressure kit-extra large #1 ea 07/26/24 10/31/24 Rx pen needle, diabetic 31 gauge x #100 ea 08/02/24 10/31/24 Rx 5/16 (Comfort EZ Pen Encinal) pregabalin 200 mg capsule (Lyrica) 200 mg PO TID #90 caps 08/09/24 10/31/24 Rx guaifenesin 1,200 mg tablet, 1,200 mg PO Q12H PRN 08/30/2410/22 History extended release 12 hr lidocaine 4 % topical patch 2 patch topical QDAY PRN pain #30 08/30/24 10/31/24 Rx (Salonpas (lidocaine)) ea magnesium oxide 400 mg (241.3 mg 400 mg PO QHS #30 tabs 08/30/24 Rx magnesium) tablet albuterol 90 mcg-budesonide 80 2 inh inhalation TID PRN shortness 08/31/24 10/31/24 Rx mcg/actuation HFA aerosol inhaler of breath #10.7 grams (Airsupra) blood-glucose meter,continuous #1 ea 08/31/24 10/31/24 Rx (Dexcom G7 Caption Writer) cyclobenzaprine 10 mg tablet 10 mg PO BID PRN muscle spasm #60 08/31/24 10/31/24 Rx tabs vitamin B complex 1 cap PO QDAY #30 caps 09/05/24 Rx montelukast 10 mg tablet 10 mg PO QPM #90 tabs 09/07/2407/15 Rx ipratropium 0.5 mg-albuterol 3 mg 3 ml inhalation Q4H PRN PRN SOB 1 11/13/23 10/31/24 Rx (2.5 mg base)/3 mL nebulization /OR WHEEZING #180 mL soln atorvastatin 20 mg tablet 20 mg PO QPM #90 tabs 10/17/2407/15 Rx empagliflozin 10 mg tablet 10 mg PO DAILY #90 tabs 10/17/24 0 10/31/24 Rx (Jardiance) lisinopril 20 mg tablet 20 mg PO DAILY #90 tabs 10/17/24 0 10/31/24 Rx metoprolol succinate 25 mg 25 mg PO QDAY #90 tabs 10/17/24 Rx tablet,extended release 24 hr insulin aspart U-100 100 unit/mL 25 unit (0.25 mL) subcut TID #22.5 10/31/24 10/31/24 Rx (3 mL) subcutaneous pen (Novolog mL FlexPen U-100 Insulin aspart) metformin 1,000 mg tablet 1,000 mg PO BID #180 tabs 10/31/24 10/31/24 Rx tirzepatide 2.5 mg/0.5 mL 2.5 mg (0.5 mL) subcut QWEEK #2 mL 10/31/24 10/31/24 Rx subcutaneous pen injector (Mounjaro) [facility] Medical History Arteriosclerotic heart disease Obesity History of left tennis elbow Tobacco abuse Type 2 diabetes mellitus Dyslipidemia Acute anxiety LOUISE (obstructive sleep apnea) Nocturnal hypoxemia Polyneuropathy Hypertension Environmental and seasonal allergies Uncontrolled persistent asthma Chest pain, atypical Hyperglycemia Arthralgia of acromioclavicular joint Chronic sinusitis Non-compliance Surgical History History of cataract surgery S/P CABG (coronary artery bypass graft) (01/31/22) History of open heart surgery History of arthroscopic knee surgery Family History Mother Cancer (more content not included)... Normal [facility] Orthopedic Visit Reporton Orthopedic Visit Report [facility] [address] [place] [address] OFFICE VISIT Date of Service: 10/21/24 MR#: [id number] Acct: [id number] Name: YENNY GARCIA Rep #: [id number] : 1970 Provider: Dr. Jim phillips MD Age/Sex: 54/M Location: [facility] [facility] Status: Signed Intake Vital Signs 10/17/24 08:28 Height 6 ft 1 in Weight: 249 lb BMI 32.8 BP 129/89 H Blood Pressure Location Lt brachial Position Sitting Respiration 18 Pulse 93 Pulse Source NIBP Intake Visit Reasons: BILATERAL HANDS Chief Complaint: bilateral carpal tunnel Is patient in pain?: Yes (bilateral hands) Pain scale (1-10): 5 Allergies bee pollen Adverse Reaction (Verified 10/21/24 10:12) throat swelling Medications ???Medication ???Instructions ???Recorded ???Confirmed ???Type fluoxetine 40 mg capsule 40 mg PO DAILY 05/13/21 10/17/24 H istory glipizide 10 mg tablet 10 mg PO DAILY 05/13/21 10/17/24 H istory epinephrine 0.3 mg/0.3 mL 0.3 mg IM Q5-15M PRN 05/14/2109/22 History injection syringe nitroglycerin 0.4 mg sublingual 0.4 mg buccal Q5-15M PRN chest cipriano n 01/08/22 10/17/24 History tablet budesonide-formoterol HFA 160 2 puff inhalation BID #3 ea 10/17/24 Rx mcg-4.5 mcg/actuation aerosol inhaler (Symbicort) cetirizine 10 mg tablet 10 mg PO DAILY #90 tabs 05/19/24 0 10/17/24 Rx fluticasone propionate 50 1 spray intranasal BID #16 grams 0 05/19/24 10/17/24 Rx mcg/actuation nasal spray,suspension (Flonase Allergy Relief) tiotropium bromide 2.5 2 puff inhalation QDAY #3 ea 05/1910/17/24 Rx mcg/actuation mist for inhalation (Spiriva Respimat) insulin glargine 100 unit/mL (3 25 unit (0.25 mL) subcut BID #15 m L 07/20/24 10/17/24 Rx mL) subcutaneous pen (Lantus Solostar U-100 Insulin) spacer #1 ea 07/21/24 09/06/24 Rx Pulse ox meter #1 ea 07/26/24 09/06/24 Rx blood pressure kit-extra large #1 ea 07/26/24 09/06/24 Rx pen needle, diabetic 31 gauge x #100 ea 08/02/24 09/06/24 Rx 5/16 (Comfort EZ Pen Encinal) pregabalin 200 mg capsule (Lyrica) 200 mg PO TID #90 caps 08/09/24 10/17/24 Rx dulaglutide 4.5 mg/0.5 mL 4.5 mg (0.5 mL) subcut QWEEK #2 mL 08/20/24 10/17/24 Rx subcutaneous pen injector (Trulicity) guaifenesin 1,200 mg tablet, 1,200 mg PO Q12H PRN 08/30/2409/22 History extended release 12 hr lidocaine 4 % topical patch 2 patch topical QDAY PRN pain #30 08/30/24 10/17/24 Rx (Salonpas (lidocaine)) ea magnesium oxide 400 mg (241.3 mg 400 mg PO QHS #30 tabs 08/30/24 Rx magnesium) tablet albuterol 90 mcg-budesonide 80 2 inh inhalation TID PRN shortness 08/31/24 10/17/24 Rx mcg/actuation HFA aerosol inhaler of breath #10.7 grams (Airsupra) blood-glucose meter,continuous #1 ea 08/31/24 09/06/24 Rx (Dexcom G7 Caption Writer) cyclobenzaprine 10 mg tablet 10 mg PO BID PRN muscle spasm #60 08/31/24 10/17/24 Rx tabs vitamin B complex 1 cap PO QDAY #30 caps 09/05/24 Rx montelukast 10 mg tablet 10 mg PO QPM #90 tabs 09/07/24 Rx ipratropium 0.5 mg-albuterol 3 mg 3 ml inhalation Q4H PRN PRN SOB 1 11/13/23 10/17/24 Rx (2.5 mg base)/3 mL nebulization /OR WHEEZING #180 mL soln atorvastatin 20 mg tablet 20 mg PO QPM #90 tabs 10/17/24 Rx empagliflozin 10 mg tablet 10 mg PO DAILY #90 tabs 10/17/24 0 10/17/24 Rx (Jardiance) lisinopril 20 mg tablet 20 mg PO DAILY #90 tabs 10/17/24 0 10/17/24 Rx metoprolol succinate 25 mg 25 mg PO QDAY #90 tabs 10/17/24 Rx tablet,extended release 24 hr PFSH Medical History Arteriosclerotic heart disease Obesity History of left tennis elbow Tobacco abuse Type 2 diabetes mellitus Dyslipidemia Acute anxiety LOUISE (obstructive sleep apnea) Nocturnal hypoxemia Polyneuropathy Hypertension Environmental and seasonal allergies Uncontrolled persistent asthma Chest pain, atypical Hyperglycemia Arthralgia of acromioclavicular joint Chronic sinusitis Non-compliance Surgical History History of cataract surgery S/P CABG (coronary artery bypass graft) (01/31/22) History of open heart surgery History of arthroscopic knee surgery Family History Mother Cancer Social History adopted: No household members: spouse housing: house current occupational status: unemployed Smoking Status: Current every day smoker tobacco type: cigarettes Tobacco: How many years used: 34 quit status: considering quitting alcohol intake: former details: has not drank alcohol in 4 or 5 years substance use (more content not included)... Normal [facility] 12 Lead EKG performed by [facility] on 10-17-2024 12 Lead EKG performed by [id number] [place] [address] 12 Lead EKG performed by [facility] 10/17/24827 MR#: [id number] Acct: [id number] Name: YENNY GARCIA Rep #: [id number] : 1970 54 From: Nael Miller MD Attending Dr: Dr. Nael Miller MD Status: DEP AMB Ordering Dr: Nael Miller MD Date: 10/17/24 [place] [facility] [place]: M C Admitted: [facility]/12 Lead EKG performed by [facility] ECG Report Interpretation S inus Rhythm - Negative precordial T-waves. WITHIN NORMAL LIMITSElectronically signed on 10/17/2024 at 11:[address] Nael Miller [employer] Version [id number] 10/17/24 1140 Date Nael Miller MD CC: Dr. Gilson Hawk DO Date Dictated: 10/17/2428 Date Transcribed: 10/17/24827 Overlock Operator: CHRISTINE Signed Normal [facility] Cardiology Visit Reporton Cardiology Visit Report [facility] [address] [place] [address] OFFICE VISIT Date of Service: 10/17/24 MR#: [id number] Acct: [id number] Name: YENNY GARCIA Rep #: [id number] : 1970 Provider: Dr. Nael Miller MD Age/Sex: 54/M Location: [facility] Status: Signed HPI HPI History of Present Illness Details: This gentleman with history of nicotine dependence, dyslipidemia, obstructive sleep apnea, diabetes mellitus, polyneuropathy and coronary artery disease status post three-vessel CABG in 2021, is here to establish cardiac care with us. Patient has had an NSTEMI in 2021. He has had coronary angiography done at [facility]. It showed triple-vessel disease. Subsequently he has had three-vessel CABG with a RANDALL to the LAD and vein graft to the obtuse marginal and right PDA. Denies any chest pains either at rest or with exertion. He has history of COPD/asthma and has shortness of breath. According to him, he has broken sternal wires in his chest and he could feel his sternum move. No orthopnea. No ankle edema. No palpitations. Intake Vital Signs 08/31/24 10:15 09/06/24 09:07 10/17/24 08:28 Height 6 ft 1 in 6 ft 1 in 6 ft 1 in Weight: 249 lb 4 oz 249 lb BMI 32.8 32.8 BP 129/89 H Blood Pressure Location Lt brachial Position Sitting Respiration 18 Pulse 93 Pulse Source NIBP Intake Visit Reasons: Presence of Aortocoronary Bypass Graft (Michael) Youth Advocate Required: No Accompanied by: Self Is patient in pain?: No Allergies bee pollen Adverse Reaction (Verified 10/17/24 08:57) throat swelling Medications ???Medication ???Instructions ???Recorded ???Confirmed ???Type atorvastatin 20 mg tablet 20 mg PO QPM 05/13/21 10/17/24 History empagliflozin 10 mg tablet 10 mg PO DAILY 05/13/21 10/17/24 History (Jardiance) fluoxetine 40 mg capsule 40 mg PO DAILY 05/13/21 10/17/24 History glipizide 10 mg tablet 10 mg PO DAILY 05/13/21 10/17/24 History lisinopril 20 mg tablet 20 mg PO DAILY 05/13/21 10/17/24 History epinephrine 0.3 mg/0.3 mL 0.3 mg IM Q5-15M PRN 05/14/21 10/17/24 History injection syringe nitroglycerin 0.4 mg sublingual 0.4 mg buccal Q5-15M PRN chest pain 01/08/22 10/17/24 History tablet budesonide-formoterol HFA 160 2 puff inhalation BID #3 ea 05/19/24 10/17/24 Rx mcg-4.5 mcg/actuation aerosol inhaler (Symbicort) cetirizine 10 mg tablet 10 mg PO DAILY #90 tabs 05/19/24 10/17/24 Rx fluticasone propionate 50 1 spray intranasal BID #16 grams 05/19/24 10/17/24 Rx mcg/actuation nasal spray,suspension (Flonase Allergy Relief) tiotropium bromide 2.5 2 puff inhalation QDAY #3 ea 05/19/24 10/17/24 Rx mcg/actuation mist for inhalation (Spiriva Respimat) insulin glargine 100 unit/mL (3 25 unit (0.25 mL) subcut BID #15 mL 07/20/24 10/17/24 Rx mL) subcutaneous pen (Lantus Solostar U-100 Insulin) spacer #1 ea 07/21/24 09/06/24 Rx Pulse ox meter #1 ea 07/26/24 09/06/24 Rx blood pressure kit-extra large #1 ea 07/26/24 09/06/24 Rx pen needle, diabetic 31 gauge x #100 ea 08/02/24 09/06/24 Rx 5/16 (Comfort EZ Pen Encinal) pregabalin 200 mg capsule (Lyrica) 200 mg PO TID #90 caps 08/09/24 10/17/24 Rx dulaglutide 4.5 mg/0.5 mL 4.5 mg (0.5 mL) subcut QWEEK #2 mL 08/20/24 10/17/24 Rx subcutaneous [facility] guaifenesin 1,200 mg tablet, 1,200 mg PO Q12H PRN 08/30/24 10/17/24 History extended release 12 hr lidocaine 4 % topical patch 2 patch topical QDAY PRN pain #30 08/30/24 10/17/24 Rx (Salonpas (lidocaine)) ea magnesium oxide 400 mg (241.3 mg 400 mg PO QHS #30 tabs 08/30/24 10/17/24 Rx magnesium) tablet albuterol 90 mcg-budesonide 80 2 inh inhalation TID PRN shortness 08/31/24 10/17/24 Rx mcg/actuation HFA aerosol inhaler of breath #10.7 grams (Airsupra) blood-glucose meter,continuous #1 ea 08/31/24 09/06/24 Rx (Dexcom G7 Caption Writer) cyclobenzaprine 10 mg tablet 10 mg PO BID PRN muscle spasm #60 08/31/24 10/17/24 Rx tabs vitamin B complex 1 cap PO QDAY #30 caps 09/05/24 10/17/24 Rx montelukast 10 mg tablet 10 mg PO QPM #90 tabs 09/07/24 10/17/24 Rx ipratropium 0.5 mg-albuterol 3 mg 3 ml inhalation Q4H PRN PRN SOB 09/12/24 10/17/24 Rx (2.5 mg base)/3 mL nebulization /OR WHEEZING #180 mL soln Ejection fraction %: 50 Have you fallen in the past year?: No [facility] Medical History (Updated 10/17/24 @ 09:[address] Nael Miller MD) Arteriosclerotic heart disease Obesity History of left tennis elbow Tobacco abuse Type 2 diabetes mellitus Dyslipidemia Acute anxiety LOUISE (obstructive sleep apnea) Nocturnal hypoxemia Polyneuropathy Hypertension Environmental and seasonal allergies Uncontrolled persistent asthma Chest pain, atypical Hyperglycemia Arthralgia of acromio (more content not included)... Normal [facility] Cardiac echo study Procedure on 10-12-2024 IMPRESSION: 1. Very poor quality study even with contrast. Left ventricular systolic function e grossly normal estimated EF 55%. Unable to assess regional wall motion abnormality and diastolic function. Mild concentric LVH noted. 2. Right ventricle not well-visualized. Systolic function not properly assessed. 3. Unable to estimate pulmonary artery systolic pressure due to inadequate tricuspid regurgitant envelope. 4. Cardiac valves are not well-visualized. No significant valvular abnormality noted on Doppler interrogation. Recommendations * May consider other imaging modalities or a transesophageal echocardiogram. Patient Info Name: Yenny Garcia Age: 54 years : 1970 Gender: Male Ht: 73 in Wt: 248 lbs BSA: 2.44 m2 HR: 90 bpm BP: 138 / 70 mmHg Technical Quality: Technically difficult with Definity Patient Status: OP Site: [facility] Current Location: [facility] Exam Type: ECHOCARDIOGRAM WITH CONTRAST Study Info Indications - COPD Procedure(s) A complete two-dimensional, color flow and Doppler transthoracic echocardiogram was performed with Definity contrast to opacify the left ventricle and to improve the delineation of the left ventricle endocardial borders. Staff Ordering Provider: Chris Gasca Slot Key Person: Staci Sarkar [facility] History/Risk Factors Prior Interventions CABG: Yes Left Ventricle Very poor quality study even with contrast. Left ventricular systolic function e grossly normal estimated EF 55%. Unable to assess regional wall motion abnormality and diastolic function. Mild concentric LVH noted. Right Ventricle Right ventricle not well-visualized. Systolic function not properly assessed. Left Atrium Left atrial chamber dimension is normal. Right Atrium Right atrial chamber dimension is normal. Aortic Valve There is no aortic valve sclerosis. There is no aortic valve stenosis with a peak velocity of 99 cm/s, mean gradient of 2 mmHg, and aortic valve area of 3.2 cm2. There is no aortic valve regurgitation. Aortic valve is not well visualized. Pulmonic Valve There is no pulmonic valve stenosis. There is no pulmonic regurgitation. Pulmonary valve is not well visualized. Mitral Valve There is no mitral valve stenosis. There is no mitral valve regurgitation. Mitral valve is not well visualized. Tricuspid Valve There is no tricuspid valve stenosis. There is no tricuspid valve regurgitation. Unable to estimate pulmonary artery systolic pressure due to inadequate tricuspid regurgitant envelope. The tricuspid valve is not well visualized. Pericardium/Pleural The pericardium appears normal. There is no pericardial effusion. Inferior Vena Cava Normal inferior vena cava with >50% collapse upon inspiration consistent with normal right atrial pressure, 3 mmHg. Aorta The aortic measurements are indexed to age and body surface area. The abdominal aorta is normal. The aortic root diameter is normal measuring 3.6 cm with an index of 1.5 cm/m2. The ascending aorta is normal measuring 3.5 cm with an index of 1.4 cm/m2. Measurements Left Ventricular Outflow Tract Name Value Normal LVOT 2D LVOT Diameter 2.3 cm LVOT Area 4.2 cm2 LVOT Doppler LVOT Peak Velocity 67 cm/s LVOT Mean Gradient 1 mmHg LVOT VTI 14 cm LVOT VTI/AV VTI Ratio 0.78 LVOT Stroke Volume 56 ml LVOT Stroke Volume Index 22.99 ml/m2 Mitral Valve Name Value Normal MV Doppler MV Peak Velocity 70 cm/s MV Mean Gradient 1 mmHg MV VTI 17 cm MV Decel Williamson 193 cm/s2 MV PHT 64 ms MV Area (PHT) 3.5 cm2 4.0-5.0 MV Area (Cont Eq VTI) 3.3 cm2 MV Diastolic Function (more content not included)... Ryan Pisano MD - 10/12/2024 IMPRESSION: 1. Very poor quality study even with contrast. Left ventricular systolic function e grossly normal estimated EF 55%. Unable to assess regional wall motion abnormality and diastolic function. Mild concentric LVH noted. 2. Right ventricle not well-visualized. Systolic function not properly assessed. 3. Unable to estimate pulmonary artery systolic pressure due to inadequate tricuspid regurgitant envelope. 4. Cardiac valves are not well-visualized. No significant valvular abnormality noted on Doppler interrogation. Recommendations * May consider other imaging modalities or a transesophageal echocardiogram. Patient Info Name: Yenny Garcia Age: 54 years : 1970 Gender: Male Ht: 73 in Wt: 248 lbs BSA: 2.44 m2 HR: 90 bpm BP: 138 / 70 mmHg Technical Quality: Technically difficult with Definity Patient Status: OP Site: [facility] Current Location: [facility] Exam Type: ECHOCARDIOGRAM WITH CONTRAST Study Info Indications - COPD Procedure(s) A complete two-dimensional, color flow and Doppler transthoracic echocardiogram was performed with Definity contrast to opacify the left ventricle and to improve the delineation of the left ventricle endocardial borders. Staff Ordering Provider: Chris Gasca Slot Key Person: Staci Sarkar [facility] History/Risk Factors Prior Interventions CABG: Yes Left Ventricle Very poor quality study even with contrast. Left ventricular systolic function e grossly normal estimated EF 55%. Unable to assess regional wall motion abnormality and diastolic function. Mild concentric LVH noted. Right Ventricle Right ventricle not well-visualized. Systolic function not properly assessed. Left Atrium Left atrial chamber dimension is normal. Right Atrium Right atrial chamber dimension is normal. Aortic Valve There is no aortic valve sclerosis. There is no aortic valve stenosis with a peak velocity of 99 cm/s, mean gradient of 2 mmHg, and aortic valve area of 3.2 cm2. There is no aortic valve regurgitation. Aortic valve is not well visualized. Pulmonic Valve There is no pulmonic valve stenosis. There is no pulmonic regurgitation. Pulmonary valve is not well visualized. Mitral Valve There is no mitral valve stenosis. There is no mitral valve regurgitation. Mitral valve is not well visualized. Tricuspid Valve There is no tricuspid valve stenosis. There is no tricuspid valve regurgitation. Unable to estimate pulmonary artery systolic pressure due to inadequate tricuspid regurgitant envelope. The tricuspid valve is not well visualized. Pericardium/Pleural The pericardium appears normal. There is no pericardial effusion. Inferior Vena Cava Normal inferior vena cava with >50% collapse upon inspiration consistent with normal right atrial pressure, 3 mmHg. Aorta The aortic measurements are indexed to age and body surface area. The abdominal aorta is normal. The aortic root diameter is normal measuring 3.6 cm with an index of 1.5 cm/m2. The ascending aorta is normal measuring 3.5 cm with an index of 1.4 cm/m2. Measurements Left Ventricular Outflow Tract Name Value Normal LVOT 2D LVOT Diameter 2.3 cm LVOT Area 4.2 cm2 LVOT Doppler LVOT Peak Velocity 67 cm/s LVOT Mean Gradient 1 mmHg LVOT VTI 14 cm LVOT VTI/AV VTI Ratio 0.78 LVOT Stroke Volume 56 ml LVOT Stroke Volume Index 22.99 ml/m2 Mitral Valve Name Value Normal MV Doppler MV Peak Velocity 70 cm/s MV Mean Gradient 1 mmHg MV VTI 17 cm MV Decel Williamson 193 cm/s2 MV PHT 64 ms MV Area (PHT) 3.5 cm2 4.0-5.0 MV Area (Cont Eq VTI) 3.3 cm2 MV Diastolic Function MV E Peak Velocity 42 cm/s MV A Peak Velocity 62 cm/s MV E/A 0.7 MV Annular TDI MV Septal e' Velocity 6.5 cm/s MV E/e' (Septal) 6.5 Tricuspid Valve Name Value Normal Estimated PAP/RSVP RA Pressure 3 mmHg <=5 Aorta (more content not included)... Ribbit [facility] Radiology Study observation (narrative) Scarlet [facility] Cardiac echo study Procedure Ordered By: Ryan Badillo on 10-12-2024 [facility] GENIAC Work Phone: NCS and/or EMG Patienton NCS and/or EMG Patient [facility] Pulmonary Services/Neurology [address] [place] [address] MR#: [id number] Acct: [id number] Name: YENNY GARCIA Rep #: [id number] : 1970 54 From: Nae Winters MD Referring Dr: Jim Self MD Status: REG CLI Location: PSN Date: 10/05/24 Sex: M C NCS and/or EMG Patient Report Ordering Doctor: Jim Self DATE OF SERVICE: 10/05/24 Yenny presents with complaints of numbness and tingling in both hands, worse on the right side. Electrodiagnostic findings: Right median motor nerve demonstrates prolonged latency with reduced amplitude and reduced conduction velocity. Left median motor nerve demonstrates prolonged latency with reduced amplitude and reduced conduction velocity. Ulnar motor response is within normal limits bilaterally. Prolonged right median sensory latency at the wrist. Needle EMG testing was performed in the upper limbs. All muscles tested showed no evidence of denervation with normal motor unit action potentials. Electrodiagnostic impression: This is an abnormal study in the upper limbs 1. Electrodiagnostic findings suggestive of bilateral median mononeuropathy. This is consistent with a moderate bilateral carpal tunnel syndrome. 2. There is no electrodiagnostic evidence for cervical radiculopathy [facility] Neurology Neurology Interp Codes: 13409-47 Musc test done w/n test comp (interp) (2) and 82875-29 Nrv cndj test 9-10 studies (interp) 10/05/24 1304 Date Nae Winters MD CC: Dr. Nae Winters MD; Dr. Gilson Hawk DO; Dr. Jim Self MD Date Dictated: 10/05/24 1301 Date Transcribed: 10/05/24 130 Overlock Operator: OCTAVIANO Signed Normal [facility] Orthopedic Visit Reporton Orthopedic Visit Report [facility] [address] [place] [address] [address] [place] [address] OFFICE VISIT Date of Service: 09/06/24 MR#: [id number] Acct: [id number] Name: YENNY GARCIA Rep #: [id number] : 1970 Provider: Dr. Jim phillips MD Age/Sex: 53/M Location: [facility] Status: Signed Intake Vital Signs 08/31/24 10:15 09/06/24 09:07 Height 6 ft 1 in 6 ft 1 in Weight: 247 lb 249 lb 4 oz BMI 32.5 32.8 BP 138/84 H Blood Pressure Location Lt brachial Position Sitting Respiration 16 Pulse 81 Pulse Source Monitor Temp 97.6 F L Temp Source Temporal Pulse Oximetry (%) 95 Oxygen Delivery Method nasal canula Intake Visit Reasons: BL HANDS Chief Complaint: bilateral carpal tunnel Accompanied by: Self Is patient in pain?: Yes Pain scale (1-10): 6 Allergies bee pollen Adverse Reaction (Verified 09/06/24 09:08) throat swelling Medications ???Medication ???Instructions ???Recorded ???Confirmed ???Type atorvastatin 20 mg tablet 20 mg PO QPM 05/13/21 09/06/24 History empagliflozin 10 mg tablet 10 mg PO DAILY 05/13/21 09/06/24 History (Jardiance) fluoxetine 40 mg capsule 40 mg PO DAILY 05/13/21 09/06/24 History glipizide 10 mg tablet 10 mg PO DAILY 05/13/21 09/06/24 History lisinopril 20 mg tablet 20 mg PO DAILY 05/13/21 09/06/24 History epinephrine 0.3 mg/0.3 mL 0.3 mg IM Q5-15M PRN 05/14/21 09/06/24 History injection syringe nitroglycerin 0.4 mg sublingual 0.4 mg buccal Q5-15M PRN chest pain 01/08/22 09/06/24 History tablet budesonide-formoterol HFA 160 2 puff inhalation BID #3 ea 05/19/24 09/06/24 Rx mcg-4.5 mcg/actuation aerosol inhaler (Symbicort) cetirizine 10 mg tablet 10 mg PO DAILY #90 tabs 05/19/24 09/06/24 Rx fluticasone propionate 50 1 spray intranasal BID #16 grams 05/19/24 09/06/24 Rx mcg/actuation nasal spray,suspension (Flonase Allergy Relief) tiotropium bromide 2.5 2 puff inhalation QDAY #3 ea 05/19/24 09/06/24 Rx mcg/actuation mist for inhalation (Spiriva Respimat) insulin glargine 100 unit/mL (3 25 unit (0.25 mL) subcut BID #15 mL 07/20/24 09/06/24 Rx mL) subcutaneous pen (Lantus Solostar U-100 Insulin) ipratropium 0.5 mg-albuterol 3 mg 3 ml inhalation Q4H PRN PRN SOB 07/21/24 09/06/24 Rx (2.5 mg base)/3 mL nebulization /OR WHEEZING #180 mL soln spacer #1 ea 07/21/24 09/06/24 Rx Pulse ox meter #1 ea 07/26/24 09/06/24 Rx blood pressure kit-extra large #1 ea 07/26/24 09/06/24 Rx pen needle, diabetic 31 gauge x #100 ea 08/02/24 09/06/24 Rx /16 (Comfort EZ Pen Encinal) pregabalin 200 mg capsule (Lyrica) 200 mg PO TID #90 caps 08/09/24 09/06/24 Rx dulaglutide 4.5 mg/0.5 mL 4.5 mg (0.5 mL) subcut QWEEK #2 mL 08/20/24 09/06/24 Rx subcutaneous pen injector (Trulicity) guaifenesin 1,200 mg tablet, 1,200 mg PO Q12H PRN 08/30/24 09/06/24 History extended release 12 hr lidocaine 4 % topical patch 2 patch topical QDAY PRN pain #30 08/30/24 09/06/24 Rx (Salonpas (lidocaine)) ea magnesium oxide 400 mg (241.3 mg 400 mg PO QHS #30 tabs 08/30/24 09/06/24 Rx magnesium) tablet albuterol 90 mcg-budesonide 80 2 inh inhalation TID PRN shortness 08/31/24 09/06/24 Rx mcg/actuation HFA aerosol inhaler of breath #10.7 grams (Airsupra) blood-glucose meter,continuous #1 ea 08/31/24 09/06/24 Rx (Dexcom G7 Caption Writer) cyclobenzaprine 10 mg tablet 10 mg PO BID PRN muscle spasm #60 08/31/24 09/06/24 Rx tabs vitamin B complex 1 cap PO QDAY #30 caps 09/05/24 09/06/24 Rx PFSH Medical History (Updated 09/06/24 @ 09:25 by Jim Self MD) History of left tennis elbow Tobacco abuse Type 2 diabetes mellitus Dyslipidemia Acute anxiety LOUISE (obstructive sleep apnea) Nocturnal hypoxemia Polyneuropathy Hypertension Environmental and seasonal allergies Uncontrolled persistent asthma Chest pain, atypical Hyperglycemia Arthralgia of acromioclavicular joint Chronic sinusitis Non-compliance Surgical History (Updated 09/06/24 @ 09:09 by Marcella Bell) History of open heart surgery History of arthroscopic knee surgery Family History Mother Cancer Social History adopted: No household members: spouse housing: house current occupational status: unemployed Smoking Status: Current every day smoker tobacco type: cigarettes Tobacco: How many years used: 34 quit status: considering quitting alcohol intake: former details: has not drank alcohol in 4 or 5 years substance use type: does not use diet: diabetic caffeine: Yes (On avg 1 cup coffee daily and a sugar free soda) Type: carbonated beverages and coffee eating out: rarely or never what type of physical activity do you parti (more content not included)... Normal [facility] Vitamin B1, Thiamineon 09-05 VIT B1 THIAMINE 150.4 nmol/L Normal 66.5-200.0 [facility] Comment on above: Order Comment: Test( s) 262635-Uvz. B1, Whole Bloodwas developed and its performance characteristicsdetermined by [facility]. It has not been cleared or approvedby the Food and Drug Administration. Result Comment: Perf ormed at: - [address] [id number] Script Developer: Kathryn Aldana MD, Phone: [phone] Performed By: #### L 501.5200, L503.0105, L3300.8000, L506.0250, L100.0100 ####[facility] [address] [place], [address] CBC W/Diff, Automatedon 08-21 Absolute Lymph 1.94 X10 3/uL Normal 0.83-4.51 [facility] Comment on above: Performed By: #### L 501.5200, L503.0105, L3300.8000, L506.0250, L100.0100 ####[facility] [address] [place], [address] Absolute Neut 5.7 X10 3/uL Normal 2.0-7.7 [facility] Comment on above: Performed By: #### L 501.5200, L503.0105, L3300.8000, L506.0250, L100.0100 ####[facility] [address] [place], [address] Basophils/100 WBC (Bld) 0.6 % Normal 0-1 [facility] Comment on above: Performed By: #### L 501.5200, L503.0105, L3300.8000, L506.0250, L100.0100 ####[facility] [address] [place], [address] Eosinophils/100 WBC (Bld) 1.2 % Normal 0-5 [facility] Comment on above: Performed By: #### L 501.5200, L503.0105, L3300.8000, L506.0250, L100.0100 ####[facility] [address] [place], [address] Erythrocyte distribution width (RBC) [Ratio] 13.2 % Normal 11.6-14.6 [facility] Comment on above: Performed By: #### L 501.5200, L503.0105, L3300.8000, L506.0250, L100.0100 ####[facility] [address] [place], [address] Hematocrit (Bld) [Volume fraction] 47.8 % Normal 40-54 [facility] Comment on above: Performed By: #### L 501.5200, L503.0105, L3300.8000, L506.0250, L100.0100 ####[facility] [address] [place], [address] Hemoglobin (Bld) [Mass/Vol] 16.1 g/dL Normal 13.0-16.5 [facility] Comment on above: Performed By: #### L 501.5200, L503.0105, L3300.8000, L506.0250, L100.0100 ####[facility] [address] [place], [address] IG% 0.700 Normal 0.0-0.9 [facility] Comment on above: Result Comment: IG% - Immature Granulocytes (promyelocytes, myelocytes and metamyelocytes) > 1% indicates that a LEFT SHIFT is Present. Performed By: #### L 501.5200, L503.0105, L3300.8000, L506.0250, L100.0100 ####[facility] [address] [place], [address] Lymphocytes/100 WBC (Bld) 23.3 % Normal 19-41 [facility] Comment on above: Performed By: #### L 501.5200, L503.0105, L3300.8000, L506.0250, L100.0100 ####[facility] [address] [place], [address] MCH (RBC) [Entitic mass] 29.6 pg Normal 27.0-32.0 [facility] Comment on above: Performed By: #### L 501.5200, L503.0105, L3300.8000, L506.0250, L100.0100 ####[facility] [address] [place], [address] MCHC (RBC) [Mass/Vol] 33.7 g/dL Normal 32-36 [facility] Comment on above: Performed By: #### L 501.5200, L503.0105, L3300.8000, L506.0250, L100.0100 ####[facility] [address] [place], [address] MCV (RBC) [Entitic vol] 87.9 fL Normal 80-94 [facility] Comment on above: Performed By: #### L 501.5200, L503.0105, L3300.8000, L506.0250, L100.0100 ####[facility] [address] [place], [address] Monocytes/100 WBC (Bld) 6.3 % Normal 0-10 [facility] Comment on above: Performed By: #### L 501.5200, L503.0105, L3300.8000, L506.0250, L100.0100 ####[facility] [address] [place], [address] Neutrophils/100 WBC (Bld) 67.9 % Normal 47-70 [facility] Comment on above: Performed By: #### L 501.5200, L503.0105, L3300.8000, L506.0250, L100.0100 ####[facility] [address] [place], [address] Nucleated RBC (Bld) [#/Vol] 0 10*3/uL Normal 0-5 [facility] Comment on above: Performed By: #### L 501.5200, L503.0105, L3300.8000, L506.0250, L100.0100 ####[facility] [address] [place], [address] Platelet mean volume (Bld) [Entitic vol] 10.8 fL Normal 6.2-12.0 [facility] Comment on above: Performed By: #### L 501.5200, L503.0105, L3300.8000, L506.0250, L100.0100 ####[facility] [address] [place], [address] Platelets (Bld) [#/Vol] 303 10*3/uL Normal 150-450 [facility] Comment on above: Performed By: #### L 501.5200, L503.0105, L3300.8000, L506.0250, L100.0100 ####[facility] [address] [place], [address] RBC (Bld) [#/Vol] 5.44 10*6/uL Normal 4.6-6.2 [facility] Comment on above: Performed By: #### L 501.5200, L503.0105, L3300.8000, L506.0250, L100.0100 ####[facility] [address] [place], [address] RDW SD 42.8 fl Normal 35.1-43.9 [facility] Comment on above: Performed By: #### L 501.5200, L503.0105, L3300.8000, L506.0250, L100.0100 ####[facility] [address] [place], [address] WBC (Bld) [#/Vol] 8.3 10*3/uL Normal 4.4-11.0 [facility] Comment on above: Performed By: #### L 501.5200, L503.0105, L3300.8000, L506.0250, L100.0100 ####[facility] [address] [place], [address] Folates, (Folic Acid)on 08-21 FOLATES 19.00 ng/mL Normal 3.1-55.4 [facility] Comment on above: Order Comment: N Performed By: #### L 501.5200, L503.0105, L3300.8000, L506.0250, L100.0100 ####[facility] [address] [place], [address] Glucoseon 08-31-2024 Glucose [Mass/Vol] 193 mg/dL High 74-106 [facility] Comment on above: Result Comment: Fast ing Glucose result greater than or equal to 126 mg/dL suggests DIABETES MELLITUS per A.D.A. criteria. Performed By: #### L 501.9985, L501.0100 ####[facility] [address] [place], [address] Hemoglobin A1con 08-31-2024 HbA1c (Bld) [Mass fraction] 9.4 % High 3.8-5.6 [facility] Comment on above: Result Comment: Norm al < 5.7 % Prediabetic 5.7 - 6.4 % Diabetic >or= 6.5 % Please note range changes. Performed By: #### L 501.9985, L501.0100 ####[facility] [address] [place], [place], [address] Internal Medicine Office Vis iton 08-31-2024 Internal Medicine Office Visit [facility] [place], [place] [address] OFFICE VISIT Date of Service: 08/31/24 MR#: [id number] Acct: [id number] Name: YENNY GARCIA Rep #: [id number] : 1970 Provider: Dr. Gilson anderson, DO Age/Sex: 53/M Location: [facility] [place] Status: Signed Intake Vital Signs 07/20/24 09:47 08/30/24 09:05 08/31/24 10:15 Height 6 ft 1 in 6 ft 1 in 6 ft 1 in Weight: 247 lb BMI 32.5 BP 138/84 H Blood Pressure Location Lt brachial Position Sitting Respiration 16 Pulse 81 Pulse Source Monitor Temp 97.6 F L Temp Source Temporal Pulse Oximetry (%) 95 Oxygen Delivery Method nasal canula Intake Visit Reasons: 6 wk FU Chief Complaint: 6 week f/u Youth Advocate Required: No Accompanied by: Self Is patient in pain?: No Allergies bee pollen Adverse Reaction (Verified 08/31/24 10:11) throat swelling Medications ???Medication ???Instructions ???Recorded ???Confirmed ???Type atorvastatin 20 mg tablet 20 mg PO QPM 05/13/21 08/31/24 History empagliflozin 10 mg tablet 10 mg PO DAILY 05/13/21 08/31/24 History (Jardiance) fluoxetine 40 mg capsule 40 mg PO DAILY 05/13/21 08/31/24 History glipizide 10 mg tablet 10 mg PO DAILY 05/13/21 08/31/24 History lisinopril 20 mg tablet 20 mg PO DAILY 05/13/21 08/31/24 History epinephrine 0.3 mg/0.3 mL 0.3 mg IM Q5-15M PRN 05/14/21 08/31/24 History injection syringe nitroglycerin 0.4 mg sublingual 0.4 mg buccal Q5-15M PRN chest pain 01/08/22 08/31/24 History tablet budesonide-formoterol HFA 160 2 puff inhalation BID #3 ea 05/19/24 08/31/24 Rx mcg-4.5 mcg/actuation aerosol inhaler (Symbicort) cetirizine 10 mg tablet 10 mg PO DAILY #90 tabs 05/19/24 08/31/24 Rx fluticasone propionate 50 1 spray intranasal BID #16 grams 05/19/24 08/31/24 Rx mcg/actuation nasal spray,suspension (Flonase Allergy Relief) tiotropium bromide 2.5 2 puff inhalation QDAY #3 ea 05/19/24 08/31/24 Rx mcg/actuation mist for inhalation (Spiriva Respimat) insulin glargine 100 unit/mL (3 25 unit (0.25 mL) subcut BID #15 mL 07/20/24 08/31/24 Rx mL) subcutaneous pen (Lantus Solostar U-100 Insulin) ipratropium 0.5 mg-albuterol 3 mg 3 ml inhalation Q4H PRN PRN SOB 07/21/24 08/31/24 Rx (2.5 mg base)/3 mL nebulization /OR WHEEZING #180 mL soln spacer #1 ea 07/21/24 08/31/24 Rx Pulse ox meter #1 ea 07/26/24 08/31/24 Rx blood pressure kit-extra large #1 ea 07/26/24 08/31/24 Rx pen needle, diabetic 31 gauge x #100 ea 08/02/24 08/31/24 Rx 5/16 (Comfort EZ Pen Encinal) pregabalin 200 mg capsule (Lyrica) 200 mg PO TID #90 caps 08/09/24 08/31/24 Rx dulaglutide 4.5 mg/0.5 mL 4.5 mg (0.5 mL) subcut QWEEK #2 mL 08/20/24 08/31/24 Rx subcutaneous pen injector (Trulicity) guaifenesin 1,200 mg tablet, 1,200 mg PO Q12H PRN 08/30/24 08/31/24 History extended release 12 hr lidocaine 4 % topical patch 2 patch topical QDAY PRN pain #30 08/30/24 08/31/24 Rx (Salonpas (lidocaine)) ea magnesium oxide 400 mg (241.3 mg 400 mg PO QHS #30 tabs 08/30/24 08/31/24 Rx magnesium) tablet albuterol 90 mcg-budesonide 80 2 inh inhalation TID PRN shortness 08/31/24 08/31/24 Rx mcg/actuation HFA aerosol inhaler of breath #10.7 grams (Airsupra) blood-glucose meter,continuous #1 ea 08/31/24 08/31/24 Rx (Dexcom G7 Caption Writer) cyclobenzaprine 10 mg tablet 10 mg PO BID PRN muscle spasm #60 08/31/24 08/31/24 Rx tabs PFSH Medical History History of left tennis elbow Tobacco abuse Type 2 diabetes mellitus Dyslipidemia Acute anxiety LOUISE (obstructive sleep apnea) Nocturnal hypoxemia Polyneuropathy Hypertension Environmental and seasonal allergies Uncontrolled persistent asthma Chest pain, atypical Hyperglycemia Arthralgia of acromioclavicular joint Chronic sinusitis Non-compliance Surgical History History of arthroscopic knee surgery Family History Mother Cancer Social History adopted: No household members: spouse housing: house current occupational status: unemployed Smoking Status: Current every day smoker tobacco type: cigarettes Tobacco: How many years used: 34 quit status: considering quitting alcohol intake: former details: has not drank alcohol in 4 or 5 years substance use type: does not use diet: diabetic caffeine: Yes (On avg 1 cup coffee daily and a sugar free soda) Type: carbonated beverages and coffee eating out: rarely or never what type of physical activity do you participate in: walking frequency: daily duration: < 15 minutes/day seatbelt use: always do you feel safe at home: Yes HPI HPI (more content not included)... Normal [facility] Magnesiumon 08-31-2024 Magnesium [Mass/Vol] 2.7 mg/dL High 1.6-2.6 [facility] Comment on above: Order Comment: N Performed By: #### L 501.5200, L503.0105, L3300.8000, L506.0250, L100.0100 ####[facility] [address] [place], [place], [address] Vitamin B12on 08-31-2024 Cobalamin (Vitamin B12) [Mass/Vol] 473 pg/mL Normal 211-911 [facility] Comment on above: Performed By: #### L 501.5200, L503.0105, L3300.8000, L506.0250, L100.0100 ####[facility] [address] [place], [place], [address] Neurology Visit [facility] Neurology Visit Report [facility] [address], [address] [place], [place] [address] OFFICE VISIT Date of Service: 08/30/24 MR#: [id number] Acct: [id number] Name: YENNY GARCIA Rep #: [id number] : 1970 Provider: Dr. Weston walton MD Age/Sex: 53/M Location: [facility] [place]. Status: Signed HPI HPI Chief Complaint: Establish Care Details: The patient is a 53-year-old right handed male who presents to establish care. He was referred 07/20/[address] Gilson Hawk with [facility] for diabetes mellitus due to underlying condition with diabetic neuropathy. 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 Patient presents for evaluation of peripheral neuropathy particularly in the feet causing painful neuropathy as well as muscle cramping involving calves and nocturnal itching and paresthesia. Patient has poorly controlled diabetes. Recent laboratory shows a hemoglobin A1c of 11.2. He had a recent laboratory glucose greater than 340. Here in the clinic he had a glucose greater than 250. Patient's BMI is 33.6%. Patient has had longstanding difficulty with neuropathy and states that he has not only neuropathy of the legs but bilateral carpal tunnel. He has not had carpal tunnel addressed because of limited funding. He also has nocturnal numbness of arms which likely involves not only median but ulnar nerves and radial nerves as well due to generalized and diabetic neuropathy. Patient states that he is unable to control his glucose. He also has a pre-existing left IOL and is due to have a right eye cataract removal because of decreasing vision. Patient also indicates that he has a chronic variable high-frequency low amplitude tremor. He does take medicines for his COPD which may exacerbate this. Patient also has prior heart attack with coronary artery bypass grafting. Veins from his right leg were harvested. The veins from the left leg were not judged as suitable for transplant. He has an ulcer on the back of his right calf which is present for more than a week and apparently slow healing. He also has chronic fungal infection of toenails. Major issue for this clinic visit is painful diabetic peripheral neuropathy. Patient had been on pregabalin which seemed to help. He had been tried on Neurontin but apparently was not satisfactory. Current medications include cyclobenzaprine. He is also on fluoxetine 40 mg daily (Prozac) possibly for neuropathy and/or depression. ROS: HEENT: Normocephalic. Clouding of vision right eye due to cataract, decreased hearing left ear with occasional tinnitus, chronic allergic sinusitis. Respiratory: COPD currently short of breath required inhaler. Cardiac cardiac surgery. Harvesting of vessel from right leg. Left leg varicosities and possibly diminished perfusion. Abdomen obese per patient. Extremities as noted above. Skin as noted above Neurologic positive for bilateral carpal tunnel pre-existing and diabetic peripheral neuropathy painful Endocrine diabetic poorly controlled elevated hemoglobin A1c's overweight difficulty managing weight Exam Const Other: Current vital signs show blood pressure 144/86 pulse 86 respiration 17 temperature 98.4 O2 sat 93%. General patient appears anxious. He does have a coughing required to use his inhaler for his chronic COPD. Respirations show rhonchi both lungs perhaps left lung greater than right Cardiac regular rhythm no murmur Abdomen obese protuberant Extremities ulcer back of right leg about a centimeter in diameter about 7 cm above ankle appears slow healing Skin aside from the lesion mentioned above he has mildly dusky toes on the left compared to the right. Dopplers of the legs performed in clinic care showed relatively good pulsations dorsalis pedis and posterior tibial where is the appeared to be somewhat more difficult to obtain on the left. Neurologic examination: Mental status: Awake alert oriented person place day month year. Memory showed recalled 1 out of 3 objects. He does complain of memory defect. Patient notes certain anxiety over his current health status. CN II-XII: Pupils are equal round about 3 mm in size they do react to light. His visual perception in the right eye is impaired by cataract. Left eye is intact due to IOL being placed. Visual porter appear to be full. Extraocular muscles showed mild saccadic pursuit bilaterally. Gaze otherwise conjugate and normal. Symmetric facial sensation expression. Hearing appears to be mildly decreased left ear compared to right using tuning fork testing. The left TM was visualized and appeared to be mildly retracted likely due to the eustachian tube dysfunction in the setting of sinusitis which is chronic for him. Right TM appeared clear. Hearing otherwise unremarkable. Swallowing phonation tongue normal. Motor exam no focal weakness observed at this (more content not included)... Normal [facility] Basic Metabolic Profile (BMP )on 07-20-2024 BUN/CRE 13.6 RATIO Normal 07-10 [facility] Comment on above: Performed By: #### L 501.9520, L500.2500, L501.9985 #### [facility] [address] [place], [address] CA,Total 9.4 mg/dL Normal 8.5-10.1 [facility] Comment on above: Performed By: #### L 501.9520, L500.2500, L501.9985 #### [facility] [address] [place], [address] Chloride [Moles/Vol] 100 mmol/L Normal 98-107 [facility] Comment on above: Performed By: #### L 501.9520, L500.2500, L501.9985 #### [facility] [address] [place], [address] CO2 [Moles/Vol] 27.0 mmol/L Normal 21.0-32.0 [facility] Comment on above: Performed By: #### L 501.9520, L500.2500, L501.9985 #### [facility] [address] [place], [address] Creatinine [Mass/Vol] 1.03 mg/dL Normal 0.70-1.30 [facility] Comment on above: Result Comment: The validity of the calculated GFR GFRAA in patients over 70 years has not been determined. Clinical correlation is essential. Performed By: #### L 501.9520, L500.2500, L501.9985 #### [facility] [address] [place], [address] EST GFR - AA 97 mL/min Normal >60 [facility] Comment on above: Result Comment: Afri can Tongan GFR Calc Performed By: #### L 501.9520, L500.2500, L501.9985 #### [facility] [address] [place], [address] GAP 7 Normal 5-15 [facility] Comment on above: Performed By: #### L 501.9520, L500.2500, L501.9985 #### [facility] [address] [place], [address] GFR/1.73 sq M.predicted among non-blacks MDRD (S/P/Bld) [Vol rate/Area] 80 mL/min/{1.73_m2} Normal >60 [facility] Comment on above: Result Comment: Non- GFR Calc Performed By: #### L 501.9520, L500.2500, L501.9985 #### [facility] [address] [place], [address] Glucose [Mass/Vol] 344 mg/dL High 74-106 [facility] Comment on above: Result Comment: Gluc ose result greater than or equal to 200 mg/dL suggests DIABETES MELLITUS per A.D.A. criteria. Performed By: #### L 501.9520, L500.2500, L501.9985 #### [facility] [address] [place], [address] Potassium [Moles/Vol] 4.1 mmol/L Normal 3.5-5.1 [facility] Comment on above: Performed By: #### L 501.9520, L500.2500, L501.9985 #### [facility] [address] [place], [address] Sodium [Moles/Vol] 135 mmol/L Low 136-145 [facility] Comment on above: Performed By: #### L 501.9520, L500.2500, L501.9985 #### [facility] [address] [place], [address] Urea nitrogen [Mass/Vol] 14 mg/dL Normal 7-18 [facility] Comment on above: Performed By: #### L 501.9520, L500.2500, L501.9985 #### [facility] [address] [place], [address] Hemoglobin A1con 07-20-2024 HbA1c (Bld) [Mass fraction] 11.2 % High 3.8-5.6 [facility] Comment on above: Result Comment: Norm al < 5.7 % Prediabetic 5.7 - 6.4 % Diabetic >or= 6.5 % Please note range changes. Performed By: #### L 501.9520, L500.2500, L501.9985 ####[facility] [address] [place], [address] Internal Medicine Office Vis laure 07-20-2024 Internal Medicine Office Visit [facility] [address] [place] [address] [place] [address] OFFICE VISIT Date of Service: 07/20/24 MR#: [id number] Acct: [id number] Name: YENNY GARCIA Rep #: [id number] : 1970 Provider: Dr. Gilson anderson, Age/Sex: 53/M Location: [facility] [place].[facility] Status: Signed Intake Vital Signs 04/08/24 12:30 05/19/24 08:02 07/20/24 09:47 Height 6 ft 1 in 6 ft 1 in 6 ft 1 in Weight: 250 lb 247 lb BMI 33.0 32.5 BP 122/77 H 130/88 H Blood Pressure Location Lt brachial Lt brachial Position Sitting Sitting Respiration 20 H 17 Pulse 91 93 Pulse Source Monitor Monitor Temp 97.5 F L 97.0 F L Temp Source Temporal Pulse Oximetry (%) 93 93 Oxygen Delivery Method room air room air Intake Visit Reasons: EST NEW PT - PULM PT Chief Complaint: EST NEW PT-PULM PT Is patient in pain?: No Allergies bee pollen Adverse Reaction (Verified 07/20/24 09:48) throat swelling Medications ???Medication ???Instructions ???Recorded ???Confirmed ???Type atorvastatin 20 mg tablet 20 mg PO QPM 05/13/21 07/20/24 History empagliflozin 10 mg tablet 10 mg PO DAILY 05/13/21 07/20/24 History (Jardiance) fluoxetine 40 mg capsule 40 mg PO DAILY 05/13/21 07/20/24 History glipizide 10 mg tablet 10 mg PO DAILY 05/13/21 07/20/24 History lisinopril 20 mg tablet 20 mg PO DAILY 05/13/21 07/20/24 History metformin 1,000 mg tablet 1,000 mg PO BID 05/13/21 07/20/24 History cyclobenzaprine 10 mg tablet 10 mg PO BID 05/14/21 07/20/24 History epinephrine 0.3 mg/0.3 mL 0.3 mg IM Q5-15M PRN 05/14/21 07/20/24 History injection syringe nitroglycerin 0.4 mg sublingual 0.4 mg buccal Q5-15M PRN chest pain 01/08/22 07/20/24 History tablet tramadol 50 mg tablet 50 mg PO Q6H PRN 02/20/22 07/20/24 History montelukast 10 mg tablet 10 mg PO QPM #90 tabs 08/31/23 07/20/24 Rx albuterol 90 mcg-budesonide 80 2 inh inhalation TID PRN shortness 05/19/24 07/20/24 Rx mcg/actuation HFA aerosol inhaler of breath #10.7 grams (Airsupra) budesonide-formoterol HFA 160 2 puff inhalation BID #3 ea 05/19/24 07/20/24 Rx mcg-4.5 mcg/actuation aerosol inhaler (Symbicort) cetirizine 10 mg tablet 10 mg PO DAILY #90 tabs 05/19/24 07/20/24 Rx fluticasone propionate 50 1 spray intranasal BID #16 grams 05/19/24 07/20/24 Rx mcg/actuation nasal spray,suspension (Flonase Allergy Relief) guaifenesin 1,200 mg tablet, 1,200 mg PO Q12H #60 tabs 05/19/24 07/20/24 Rx extended release 12 hr ipratropium 0.5 mg-albuterol 3 mg 3 ml inhalation Q4H PRN PRN SOB 05/19/24 07/20/24 Rx (2.5 mg base)/3 mL nebulization /OR WHEEZING #180 mL soln tiotropium bromide 2.5 2 puff inhalation QDAY #3 ea 05/19/24 07/20/24 Rx mcg/actuation mist for inhalation (Spiriva Respimat) insulin glargine 100 unit/mL (3 25 unit (0.25 mL) subcut BID #15 mL 07/20/24 07/20/24 Rx mL) subcutaneous pen (Lantus Solostar U-100 Insulin) polyethylene glycol 3350 17 17 g PO DAILY PRN 07/20/24 07/20/24 History gram/dose oral powder pregabalin 200 mg capsule (Lyrica) 200 mg PO TID 07/20/24 07/20/24 History PFSH Medical History History of left tennis elbow Tobacco abuse Type 2 diabetes mellitus Dyslipidemia Acute anxiety LOUISE (obstructive sleep apnea) Nocturnal hypoxemia Polyneuropathy Hypertension Environmental and seasonal allergies Uncontrolled persistent asthma Chest pain, atypical Hyperglycemia Arthralgia of acromioclavicular joint Chronic sinusitis Non-compliance Surgical History History of arthroscopic knee surgery Social History (Updated 07/20/24 @ 09:54 by Sherrie Donald LPN) adopted: Yes household members: spouse housing: house current occupational status: unemployed Smoking Status: Current every day smoker tobacco type: cigarettes Tobacco: How many years used: 34 quit status: considering quitting alcohol intake: former details: has not drank alcohol in 4 or 5 years substance use type: does not use diet: diabetic caffeine: Yes (iced tea unsweetened 2x /day ) Type: tea eating out: rarely or never what type of physical activity do you participate in: walking frequency: daily duration: < 15 minutes/day seatbelt use: always do you feel safe at home: Yes HPI HPI Chief Complaint: EST NEW PT-PULM PT Details: YENNY GARCIA, is a 53 M who presents to the office today for a new patient exam. This patient is a very complex patient to take care of. He has chronic lung disease and takes portable oxygen but he still smokes a pack of cigarettes a day. His pulse ox is 93% on room air. And as I examine him his constant glucose monitor continues to go off saying that his blood sugars over 300, but he tells me he just finished ea (more content not included)... Normal [facility] Thyroid Stim Hormone (TSH)on 07-20-2024 TSH 1.340 uIU/mL Normal 0.358-3.740 [facility] Comment on above: Performed By: #### L 501.9529, L500.2500, L501.9985 #### [facility] [address] [place] [address], [address] CBC + DIFFon 06-20-2024 Baso # 0.03 x10EE3/UL Normal 0.00 - 0.10 [facility] Comment on above: Performed By: #### 2 23554 #### [facility],[address] [place] [address] Basophils/100 WBC (Bld) 0.2 % Normal 0.0 - 2.0 [facility] Comment on above: Performed By: #### 2 97117 #### [facility],[address] [place] [address] CBC + DIFF Normal [facility] Comment on above: Result Comment: CBC- COMPLETE BLOOD COUNT Performed By: #### 2 62383 #### [facility],[address] [place] [address] EO # 0.20 x10EE3/UL Normal 0.00 - 0.50 [facility] Comment on above: Performed By: #### 2 79020 #### [facility],[address] [place] [address] Eosinophils/100 WBC (Bld) 1.7 % Normal 0.0 - 7.0 [facility] Comment on above: Performed By: #### 2 99118 #### [facility],[address] [place], [place] [id number] Erythrocyte distribution width (RBC) [Ratio] 13.8 % Normal 12.0 - 15.6 [facility] Comment on above: Performed By: #### 2 10060 #### [facility],[address] [place] [address] 33417 Hematocrit (Bld) [Volume fraction] 45.8 % Normal 40.0 - 52.0 [facility] Comment on above: Performed By: #### 2 38256 #### [facility],[address] [place] [address] 55599 Hemoglobin (Bld) [Mass/Vol] 15.6 g/dL Normal 13.0 - 17.5 [facility] Comment on above: Performed By: #### 2 97719 #### [facility],[address] [place] [address] 95478 Lymph # 2.45 x10EE3/UL Normal 0.80 - 2.80 [facility] Comment on above: Performed By: #### 2 41599 #### [facility],[address] [place] [address] 94294 Lymphocytes/100 WBC (Bld) 20.4 % Normal 20.0 - 45.0 [facility] Comment on above: Performed By: #### 2 85354 #### [facility],[address] [place] [address] MANUAL DIFF N/A Normal [facility] Comment on above: Performed By: #### 2 29311 #### [facility],[address] [place] [address] MCH (RBC) [Entitic mass] 30 pg Normal 27 - 33 [facility] Comment on above: Performed By: #### 2 04278 #### [facility],[address] [place] [address] MCHC 34 X10 3 Normal 32 - 36 [facility] Comment on above: Performed By: #### 2 45415 #### [facility],[address] [place] [address] MCV (RBC) [Entitic vol] 88 fL Normal 81 - 98 [facility] Comment on above: Performed By: #### 2 43960 #### [facility],[address] [place] [address] [place] # 0.54 x10EE3/UL Normal 0.20 - 1.00 [facility] Comment on above: Performed By: #### 2 39907 #### [facility],[address] [place] [address] MONOS % 4.5 % Normal 0.0 - 10.0 [facility] Comment on above: Performed By: #### 2 14584 #### [facility],[address] [place], [place] [id number] Morphology John (Bld) [Interp] N/A Normal [facility] Comment on above: Performed By: #### 2 25373 #### [facility],[address] [place] [address] Neut # 8.78 x10EE3/UL High 1.50 - 7.10 [facility] Comment on above: Performed By: #### 2 36235 #### [facility],[address] [place] [address] 33376 Neutrophils/100 WBC (Bld) 73.2 % Normal 46.0 - 76.0 [facility] Comment on above: Performed By: #### 2 65664 #### [facility],[address] [place] [address] 69602 PLATELET 273 x10EE3/UL Normal 150 - 450 [facility] Comment on above: Performed By: #### 2 11362 #### [facility],[address] [place] [address] 46263 Platelet mean volume (Bld) [Entitic vol] 8.1 fL Normal 6.4 - 10.5 [facility] Comment on above: Result Comment: AUTO MATED DIFFERENTIAL Performed By: #### 2 63126 #### [facility],[address] [place] [address] 57038 RBC 5.23 x 10EE6/UL Normal 4.50 - 6.00 [facility] Comment on above: Performed By: #### 2 22856 #### [facility],[address] [place] [address] 81686 WBC 12.0 x 10EE3/UL High 4.5 - 10.8 [facility] Comment on above: Performed By: #### 2 73306 #### [facility],[address] [place] [address] 35079 LIPID PROFILEon 06-20-2024 Cholesterol [Mass/Vol] 180 mg/dL Normal 0 - 240 [facility] Comment on above: Performed By: #### 2 45683 #### [facility],[address] [place] [address] 67225 Cholesterol in HDL [Mass/Vol] 41 mg/dL Normal 40 - 60 [facility] Comment on above: Performed By: #### 2 92307 #### [facility],[address] [place] [address] 93247 Cholesterol in LDL [Mass/Vol] 71 mg/dL Normal 0 - 129 [facility] Comment on above: Performed By: #### 2 58443 #### [facility],[address] [place] [address] 13628 Cholesterol.total/Ch olesterol in HDL [Mass ratio] 4.4 {ratio} Normal 0.0 - 5.0 [facility] Comment on above: Performed By: #### 2 91691 #### [facility],[address] [place] [address] 41438 Lipid 1996 panel Normal [facility] Comment on above: Result Comment: LIPI D PROFILE Performed By: #### 2 45537 #### [facility],[address] [place] [address] 15958 Triglyceride [Mass/Vol] 341 mg/dL High 0 - 150 [facility] Comment on above: Performed By: #### 2 01168 #### [facility],[address] [place] [address] 86749 Pulmonary Visit Reporton Pulmonary Visit Report [facility] Pulmonary Medicine of [address] [place] [address] OFFICE VISIT Date of Service: 05/19/24 MR#: [id number] Acct: [id number] Name: YENNY GARCIA Rep #: [id number] : 1970 Provider: DARIUS Espinoza Age/Sex: 53/M Location: [facility].W Status: Signed with Addenda ADDENDUM by Deja Newman on 09/20/24 at 1149 Office Procedure Documentation entered by Deja Newman 09/20/24 11:49: Smoking Cessation Smoking Cessation 05/19/24. Encourage complete smoking cessation. Low-dose CT lung scan ordered for March 2025. Time Spent 3-10 minutes: Yes Date cc: DARIUS Hernandez * Signed Assessment and Plan Assessment and Plan (1) Asthma-COPD overlap syndrome: Status: Chronic Comment: FEV1 49% Plan: He Does not appear to be an exacerbation of COPD today. No need for prednisone or antibiotic. Continue current maintenance medication is currently on triple therapy with the use of Symbicort and Spiriva. No additional testing at this time. Contact the office for any new or worsening symptoms. An acute visit and typically be arranged within 1-2 days. Follow-up in 4 months. (2) Smoking greater than 20 pack years: Status: Chronic Comment: started age 14 currently 1 ppd Plan: Encourage complete smoking cessation. Low-dose CT lung scan ordered for March 2025. (3) LOUSIE (obstructive sleep apnea): Status: Chronic Comment: Noncompliant Plan: Deteriorated. The patient does not currently have a PAP device. He states that he moved away and did not take it with him. When he returned to retrieve it it was missing. He believes that someone took it. He would like to be reestablished with PAP therapy. He is symptomatic at this time and is agreeable to a retitration study to get reinitiated on PAP therapy. Orders: Orders Low Dose CT Lung Screening 03/21/25 F17.200 - Nicotine dependence, unspecified, uncomplicated, F17.210 - Nicotine dependence, cigarettes, uncomplicated Polysomnography with NCPAP Today G47.33 - Obstructive sleep apnea (adult) (pediatric) Medications: New guaifenesin ER 1,200 mg PO Q12H 60 tabs 6RF G47.33 - Obstructive sleep apnea (adult) (pediatric) Refilled albuterol-budesonide 90-80 mcg/actuation (Airsupra) as a single dose; may repeat up to 6 doses per day (12 inhalations) 2 inhalations inhalation TID PRN 10.7 grams 11RF shortness of breath budesonide-formoterol 160-4.5 mcg/actuation (Symbicort) administer with spacer, rinse mouth after each use 2 puffs inhalation BID 3 ea 3RF J44.9 - Chronic obstructive pulmonary disease, unspecified cetirizine 10 mg PO DAILY 90 tabs 3RF J44.9 - Chronic obstructive pulmonary disease, unspecified fluticasone propionate 50 mcg/actuation (Flonase Allergy Relief) administer into each nostril 1 spray intranasal BID 16 grams 6RF J44.9 - Chronic obstructive pulmonary disease, unspecified ipratropium-albuterol 0.5 mg-3 mg(2.5 mg base)/3 mL 3 mL inhalation Q4H PRN PRN 180 mL 6RF SOB /OR WHEEZING tiotropium bromide 2.5 mcg/actuation (Spiriva Respimat) administer at approximately the same time(s) each day 2 puffs inhalation QDAY 3 ea 3RF J44.9 - Chronic obstructive pulmonary disease, unspecified Discontinued guaifenesin Discontinued Reason: Order Changed 200 mg (10 mL) PO Q4H 473 mL 11RF Proventil HFA 90 mcg/actuation (albuterol sulfate) Discontinued Reason: Order Changed 2 inhalations inhalation Q6H 6.7 grams 6RF NS J44.9 - Chronic obstructive pulmonary disease, unspecified ipratropium-albuterol 0.5 mg-3 mg(2.5 mg base)/3 mL Discontinued Reason: Order Changed 3 mL inhalation Q4H PRN 180 mL 6RF wheezing J44.9 - Chronic obstructive pulmonary disease, unspecified albuterol sulfate Discontinued Reason: Order Changed 2.5 mg (3 mL) inhalation Q4H PRN 180 mL 0RF SOB/ Wheezing J45.998 - Other asthma Plan Details Follow Up: 4 Months ([facility]) HPI 3 M FU Chief Complaint: Shortness of breath HPI Comments Details: This patient presents to the office today for follow-up of his asthma/COPD overlap syndrome. He is ambulatory. He has not recently been seen in the ED or urgent care for any respiratory illness. He has not required any antibiotics or prednisone for any breathing problems. He is compliant with use of Symbicort 2 puffs twice daily. He does report rinsing his mouth out after each use. He denies any medication side effect such as sore throat or thrush. He is also compliant with cetirizine daily, Singulair daily, Flonase daily and Spiriva daily. He uses Airsupra about once per day. He finds the Airsupra to be very effective. He prefers it over albuterol for rescue. He continues to smoke cigarettes. Currently smoking 1 pack/day. He reports rolling his own cigarettes. He states at [facility] (more content not included)... Normal [facility] 6 Minute Walk Teston 04-14-2 024 6 Minute Walk Test y [facility] Pulmonary Services/Neurology [address] [place] [address] MR#: [id number] Acct: [id number] Name: YENNY GARCIA Rep #: [id number] : 1970 53 From: Tavares Hawk DO Referring Dr: Ebony Espinoza PROGRAM SERVICES ASSISTANT PROGRAM SERVICES ASSISTANT-C Status: REG CLI Location: PSN Date: Sex: M C PSN 6 Minute Walk Test 6 Minute Walk Test 6 Minute Walk Test: 6 Minute Walk Test PSN:6-Minute Walk Test Start: 04/08/24 12:55 Freq: Status: Active Protocol: RESP.6MINW Document 04/08/24 12:30 AEH (Rec: 04/08/24 13:06 AEH [id number]) 6 Minute Walk Test Date Performed 04/08/24 Time Performed 12:30 Height 6 ft 1 in Weight: 243 lb Weight in Pounds 243.[address]: Sheryl Assistive device used: None Pre-test Oxygen Delivery Method Room Air Pulse Ox (%) 92 Pulse Rate (60-100 beats/min) 86 Dyspnea Mini Scale (0-10) 0 Exertion Mini Scale (6-20) 6 1st minute Oxygen Delivery Method Room Air Pulse Ox (%) 90 Pulse Rate (60-100 beats/min) 103 H 2nd minute Oxygen Delivery Method Room Air Pulse Ox (%) 88 Pulse Rate (60-100 beats/min) 98 3rd minute Oxygen Flow Rate (L/min) (L/min) 1 Pulse Ox (%) 94 Pulse Rate (60-100 beats/min) 95 4th minute Oxygen Flow Rate (L/min) (L/min) 1 Oxygen Delivery Method Nasal Cannula Pulse Ox (%) 92 Pulse Rate (60-100 beats/min) 97 5th minute Oxygen Flow Rate (L/min) (L/min) 1 Oxygen Delivery Method Nasal Cannula Pulse Ox (%) 91 Pulse Rate (60-100 beats/min) 100 Dyspnea Mini Scale (0-10) 0.5 Exertion Mini Scale (6-20) 11 6th minute Oxygen Flow Rate (L/min) (L/min) 1 Oxygen Delivery Method Nasal Cannula Pulse Ox (%) 90 Pulse Rate (60-100 beats/min) 98 Dyspnea Mini Scale (0-10) 0.5 Exertion Mini Scale (6-20) 11 Post-test Oxygen Flow Rate (L/min) (L/min) 1 Oxygen Delivery Method Nasal Cannula Pulse Ox (%) 93 Pulse Rate (60-100 beats/min) 89 Full Laps Walked 13 Partial Lap, Number of Tiles Walked 11 Total Distance Walked (ft) 778 Interpretation Interpretation: The patient ambulated 778 feet over the course of 6 minutes beginning on room air without assistive devices. Pretesting oxygen saturation was 92% on room air. With ambulation, the shane oxygen saturation was 88%, requiring 1 L/min of supplemental oxygen to complete the remainder of the test, while maintaining appropriate oxygen saturations. Recommendations Recommendations: 1 L/min of supplemental oxygen should be utilized with exertion. 04/14/24947 Date Tavares Hawk DO CC: Date Dictated: 04/14/24946 Date Transcribed: 04/14/24946 Overlock Operator: Dr. Tavares Hawk DO Signed Normal [facility] Bedside Glucose (Point of Ca re)on 04-12-2024 Glucose [Mass/Vol] 223 mg/dL Normal 65-110 [facility] Comment on above: Performed By: #### G [facility] #### [address] [id number] CDSon 04-12-2024 CDS DATE: 04/12/2024 HOSPITAL COURSE: The patient entered the hospital on 04/12, dense cataract, left eye. Underwent a phacoemulsification procedure, placement of posterior chamber intraocular lens, no complications, discharged in good condition. Only homegoing instructions were to take a Diamox Sequels that evening. He was also instructed to resume his regular and p.r.n. medications. He was also instructed to leave the patch and shield in place. As stated above, he tolerated the procedure well, no complications, discharged in good condition and will be seen in office in 24 hours for followup. VALENTE TID: [id number] DICTATING PROVIDER: Ananya Hays Paige [facility] COPon 04-12-2024 PLAYGROUND ATTENDANT DATE: 04/12/2024 PREOPERATIVE DIAGNOSIS: Cataract, left eye. PREOPERATIVE DIAGNOSIS: Cataract, left eye. OPERATION: Phacoemulsification, left eye, placement of posterior chamber intraocular lens. ANESTHESIA: MAC. HEAD BOYS GOLF COACH: None. COMPLICATIONS: None. LOSS OF BLOOD: None. SPECIMENS: None. INDICATIONS FOR PROCEDURE: This patient has an extremely dense posterior subcapsular cataract of the left eye. His best visual acuity is 20/50. The patient is a diabetic, but demonstrates no diabetic cystoid macular edema. There is no other retinopathy. He is having difficulty with reading. I expect significant improvement following the surgery. OPERATIVE REPORT: The patient was brought to the operating room and identified as the patient having cataract surgery, left eye. Topical tetracaine drops placed in the left eye and the patient prepped and draped in the usual sterile fashion for left eye procedure. Timeout performed. Lid speculum was placed to hold the lids back. Attention was focused on the superior temporal quadrant. Cautery was used on the conjunctiva just posterior to the limbus. A small opening was made in the conjunctiva with Josey scissors. Following this, a blunt 19 gauge sub-Tenon's cannula was introduced and anesthetic solution was injected, 2% Xylocaine with epinephrine mixed half and half 0.5% Marcaine. After adequate anesthesia, a small fornix-based conjunctival flap was made superiorly. Hemostasis achieved with bipolar cautery. Groove incision made with 6900 blade and beveled clear cornea. Anterior chamber was entered with a 2.4 mm keratome. Viscoat was instilled. Counterpuncture incision made with sideport blade. Bent 25-gauge needle was then used to fashion the first part of anterior capsular flap. Circular capsulorrhexis then completed. The nucleus was loosened from its cortical attachments using hydrodissection. Phacoemulsification tip was introduced in the eye and nucleus emulsified in 4-quadrant crack technique. Irrigation aspiration function was used to remove the remainder of the cortex. Posterior capsule was polished. Provisc was used to inflate the capsular bag and anterior chamber. Foldable Clareon posterior chamber intraocular lens was placed in the capsular bag without difficulty. Irrigation and aspiration function was then used to remove all the Provisc and Viscoat. Balanced salt solution was injected through the sideport incision. Wound was checked for tightness, found to be tight. Kefzol, Solu-Medrol and tobramycin injected subconjunctivally inferiorly. Conjunctival flap closed with bipolar cautery. Lid speculum was removed. A drop of Cosopt and erythromycin ointment was placed in the eye. Patch and shield placed over the eye and the patient went to the holding area in good condition. He tolerated the procedure well. No complications. TM/TAR TID: [id number] DICTATING PROVIDER: Ananya Gibson [facility] Low Dose CT Lung Screeningon 04-05-[address] Lung Screening [facility] Imaging Services [address] [place] [address] Lung Screening MR#: [id number] Acct: [id number] Name: YENNY GARCIA Rep #: [id number] : 1970 M 53 From: Rodney Maldonado MD PCP: DARIUS Zapata Status: [facility] Study: Low Dose CT Lung Screening Date of Exam: 04/05 Exam# [id number] Ordering Dr: Ebony Espinoza NP PROGRAM SERVICES ASSISTANT-C 3:[id number] STUDY: LOW DOSE CT LUNG CANCER SCREENING REASON FOR EXAM: Male, 53 years old. smoker RADIATION DOSAGE (If Supplied By Facility): CTDIvol = ( 4.02 ) mGy, DLP = ( 137.43 ) mGycm TECHNIQUE: No contrast was administered. Low dose technique was utilized (average mAS-38 and kVp 120). 1.25 mm axial source images with a slice interval of 1.25-mm were reconstructed in lung windows. 2.5 mm axial source images with a slice interval of 2.5-mm were reconstructed in lung windows. 5.0 mm axial source images with a slice interval of 5.0-mm were reconstructed in soft tissue windows. COMPARISON: 09/12/2021 Emphysema: Mild emphysema. No noncalcified nodule or mass. Endobronchial lesion: None Aorta: No thoracic aortic aneurysm. CORONARY ARTERIES: Coronary artery calcification is seen. Heart: No cardiomegaly. Pulmonary artery: Normal Mediastinal nodes: Normal Other chest and abdominal findings: Status post median sternotomy. Multiple healed left rib fractures. CT/Low Dose CT Lung Screening IMPRESSION: Lung-RADS category 1 - Continue annual screening with LDCT in 12 months. IMPORTANT NOTES FOR USE: ACR Lung-RADS Version 1.1 Assessment Categories Release Date: 2018 Category: Coded 0-4 bases on nodule(s) with highest degree of suspicion. Negative screen is defined as categories 1 and 2; a positive screen is defined as categories 3 and 4. Category 3 and 4A nodules that are unchanged on interval CT should be coded as category 2, and individuals returned to screening in 12 months. Category 4X: Category 3 or 4 nodules with additional imaging findings that increase the suspicion of lung cancer, such as spiculation, GGN that doubles in size in 1 year, enlarged lymph notes, etc. Category Modifiers: S (significant finding unrelated to lung cancer) Electronically Signed: Rodney Maldonado MD at 9:57 EDT , CC: DARIUS Espinoza; DARIUS Hernandez Overlock Operator: Signed Normal [facility] Basic Metabolic Panelon 07-0 Anion gap [Moles/Vol] 12.8 mmol/L Normal 8.0-16.0 [facility] Comment on above: Performed By: #### B MP ####[facility] [place] [address] Calcium [Mass/Vol] 8.4 mg/dL Normal 8.2-10.0 [facility] Comment on above: Performed By: #### B MP ####[facility] [place] [address] Chloride [Moles/Vol] 105 mmol/L Normal 94-110 [facility] Comment on above: Performed By: #### B MP ####[facility] [place] [address] CO2 [Moles/Vol] 24 mmol/L Normal 21-34 [facility] Comment on above: Performed By: #### B MP ####[address] [place] [place] [address] Creatinine [Mass/Vol] 0.80 mg/dL Normal 0.50-1.17 [facility] Comment on above: Performed By: #### B MP ####[address] [place] [address] EGFR Other Races >60 Normal >60 [facility] Comment on above: Performed By: #### B MP ####[address] [place] [address] GFR/1.73 sq M.predicted among blacks MDRD (S/P/Bld) [Vol rate/Area] mL/min/{1.73_m2} Normal >60 [facility] Comment on above: Result Comment: Event Executive aguilar Kidney Disease less than 60 mL/min/1.73 m2 Kidney Failure less than 15 mL/min/1.73 m2 Average estimated GFR by age: 50-59 years 93 mL/min/1.73 m2 Performed By: #### B MP ####[facility] [place] [address] Glucose [Mass/Vol] 180 mg/dL High 65-100 [facility] Comment on above: Performed By: #### B MP ####[facility] [place] [address] Potassium [Moles/Vol] 3.8 mmol/L Normal 3.3-5.1 [facility] Comment on above: Performed By: #### B MP ####[facility] [place] [address] Sodium [Moles/Vol] 138 mmol/L Normal 132-145 [facility] Comment on above: Performed By: #### B MP ####[facility] [place] [address] Urea nitrogen [Mass/Vol] 16.0 mg/dL Normal 3.2-26.9 [facility] Comment on above: Performed By: #### B MP ####[facility] [place] [address] Urea nitrogen/Creatinine [Mass ratio] 20 mg/mg Normal 6-20 [facility] Comment on above: Performed By: #### B MP ####[facility] [place] [address] XR CHEST 2 VIEWSon 2 XR CHEST 2 VIEWS ORIGINAL EXAMINATION: TWO XRAY VIEWS OF THE CHEST 07/15/2022 3:13 pm COMPARISON: 06/20/2022 HISTORY: ORDERING SYSTEM PROVIDED HISTORY: Reason for Exam: Abnormal breath sounds FINDINGS: Sternotomy changes are noted. There are fractured sternal wires. Normal heart size. No appreciable pneumothorax, pleural effusion, vascular congestion, or focal airspace consolidation is evident. Degenerative changes are seen of the spine. IMPRESSION: 1. No evidence of acute cardiopulmonary process. Interpreted by: Christo Reveles DO Preliminary Report By: Christo Reveles DO Electronically signed By Christo Reveles DO Dictated Date: 07/18/2022 11:01:00 AM Prelim Date: 07/18/2022 11:02:14 AM Sign Date: 07/18/2022 11:02:14 AM Ordering Provider: DEVONTE HAWK [facility] ([place]) XR CHEST 2 VIEWSon 2 XR CHEST 2 VIEWS ORIGINAL EXAMINATION: TWO XRAY VIEWS OF THE CHEST06/20/2022 9:12 am XR Chest, two views COMPARISON: 02/24/2022 HISTORY: ORDERING SYSTEM PROVIDED HISTORY: Reason for Exam: sternal discomfort, previous sternotomy and bypass surgery. FINDINGS: The lungs show no infiltrate, consolidation or mass. Heart size and mediastinal contours are stable accounting for differences in projection and patient position. No pneumothorax, pleural fluid, or vascular congestion is seen. The bones show no acute process. Sternotomy wires are present with fracture of a couple of sternotomy wires not seen previously. IMPRESSION: No acute cardio pulmonary process. There is fracture of a couple of sternotomy wires that is not seen on the earlier radiograph. Interpreted by: Jass Moncada MD Preliminary Report By: Jass Moncada MD Electronically signed By Jass Moncada MD Dictated Date: 06/21/2022 8:55:52 PM Prelim Date: 06/21/2022 8:57:02 PM Sign Date: 06/21/2022 8:57:02 PM Ordering Provider: DEVONTE HAWK [facility] ([place]) XR CHEST 2 VIEWSon XR CHEST 2 VIEWS ORIGINAL EXAMINATION: TWO XRAY VIEWS OF THE CHEST 02/24/2022 2:11 pm COMPARISON: 02/11/2022 HISTORY: ORDERING SYSTEM PROVIDED HISTORY: Reason for Exam: pleural effusion FINDINGS: Normal heart size. Prior CABG. No focal consolidation or pulmonary edema. Trace left pleural effusion, mildly improved. No pneumothorax. IMPRESSION: Mildly improved now trace left pleural effusion. Interpreted by: Stanislav Banerjee Preliminary Report By: Stanislav Banerjee Electronically signed By Stanislav Banerjee Dictated Date: 02/24/2022 4:49:35 PM Prelim Date: 02/24/2022 4:50:37 PM Sign Date: 02/24/2022 4:50:37 PM Ordering Provider: MELVIN BARBOSA [facility] ([place]) .GFRon 02-11-2022 GFR >60 [facility] ([place]) Comment on above: Result Comment: GFR Population mean for , Non- Americans Ages 20-29 = 116 mL/min/1.73 sq.m. Ages 30-39 = 107 mL/min/1.73 sq.m. Ages 40-49 = 99 mL/min/1.73 sq.m. Ages 50-59 = 93 mL/min/1.73 sq.m. Ages 60-69 = 85 mL/min/1.73 sq.m. Ages 70+ = 75 mL/min/1.73 sq.m. Chronic Kidney Disease: Less than 60 mL/min/1.73 square meters End Stage Renal Disease: Less than 15 mL/min/1.73 square meters Performed By: #### G FR, MG, BMP, CBC, ADIFF, ANEU #### [address] [address] GFR Non- >60 Normal [facility] ([place]) Comment on above: Result Comment: GFR Population mean for , Non- Americans Ages 20-29 = 116 mL/min/1.73 sq.m. Ages 30-39 = 107 mL/min/1.73 sq.m. Ages 40-49 = 99 mL/min/1.73 sq.m. Ages 50-59 = 93 mL/min/1.73 sq.m. Ages 60-69 = 85 mL/min/1.73 sq.m. Ages 70+ = 75 mL/min/1.73 sq.m. Chronic Kidney Disease: Less than 60 mL/min/1.73 square meters End Stage Renal Disease: Less than 15 mL/min/1.73 square meters Performed By: #### G FR, MG, BMP, CBC, ADIFF, ANEU #### [address] [address] BMPon 02-11-2022 BUN/Creatinine Ratio 23.2 ratio High 10.0-22.0 [facility] ([place]) Comment on above: Performed By: #### G FR, MG, BMP, CBC, ADIFF, ANEU #### [address] [address] Calcium [Mass/Vol] 10.5 mg/dL High 8.7-10.4 [facility] ([place]) Comment on above: Performed By: #### G FR, MG, BMP, CBC, ADIFF, ANEU #### [address] [address] Chloride [Moles/Vol] 101 mmol/L Normal 98-110 [facility] ([place]) Comment on above: Performed By: #### G FR, MG, BMP, CBC, ADIFF, ANEU #### [address] [address] CO2 [Moles/Vol] 28 mmol/L Normal 22-32 [facility] ([place]) Comment on above: Performed By: #### G FR, MG, BMP, CBC, ADIFF, ANEU #### [address] [address] Creatinine [Mass/Vol] 0.99 mg/dL Normal 0.60-1.40 [facility] ([place]) Comment on above: Performed By: #### G FR, MG, BMP, CBC, ADIFF, ANEU #### [address] [address] Electrolyte Balance 11.0 mEq/L Normal 4.0-15.0 [facility] ([place]) Comment on above: Performed By: #### G FR, MG, BMP, CBC, ADIFF, ANEU #### [place] [id number] Glucose [Mass/Vol] 229 mg/dL High 70-110 [facility] ([place]) Comment on above: Performed By: #### G FR, MG, BMP, CBC, ADIFF, ANEU #### [address] [address] Potassium [Moles/Vol] 4.8 mmol/L Normal 3.5-5.0 [facility] ([place]) Comment on above: Performed By: #### G FR, MG, BMP, CBC, ADIFF, ANEU #### [address] [address] Sodium [Moles/Vol] 140 mmol/L Normal 136-145 [facility] ([place]) Comment on above: Performed By: #### G FR, MG, BMP, CBC, ADIFF, ANEU #### [address] [address] Urea nitrogen [Mass/Vol] 23.0 mg/dL High 8.0-22.0 [facility] ([place]) Comment on above: Performed By: #### G FR, MG, BMP, CBC, ADIFF, ANEU #### [facility] [address] [place] [address] LABORATORYOrdered By: SYSTEM SYSTEM on 02-11-2022 Calcium [Mass/Vol] 10.5 mg/dL Invalid Interpretation Code 8.7 - 10.4 mg/dL AH ADM SS Chloride [Moles/Vol] 101 mmol/L Invalid Interpretation Code 98 - 110 mEq/L AH ADM SS CO2 [Moles/Vol] 28 mmol/L Invalid Interpretation Code 22 - 32 mEq/L AH ADM SS Creatinine [Mass/Vol] 0.99 mg/dL Invalid Interpretation Code 0.60 - 1.40 mg/dL AH ADM SS Electrolyte Balance 11.0 mEq/L Invalid Interpretation Code 4.0 - 15.0 mEq/L AH ADM SS GFR/1.73 sq M.predicted among blacks MDRD (S/P/Bld) [Vol rate/Area] ml/min/1.73sqm Invalid Interpretation Code AH Chemistry S GFR/1.73 sq M.predicted among non-blacks MDRD (S/P/Bld) [Vol rate/Area] ml/min/1.73sqm Invalid Interpretation Code AH Chemistry S Glucose [Mass/Vol] 229 mg/dL Invalid Interpretation Code 70 - 110 mg/dL AH ADM SS Potassium [Moles/Vol] 4.8 mmol/L Invalid Interpretation Code 3.5 - 5.0 mEq/L AH ADM SS Sodium [Moles/Vol] 140 mmol/L Invalid Interpretation Code 136 - 145 mEq/L AH ADM SS Urea nitrogen [Mass/Vol] 23.0 mg/dL Invalid Interpretation Code 8.0 - 22.0 mg/dL AH ADM SS Urea nitrogen/Creatinine [Mass ratio] 23.2 ratio Invalid Interpretation Code 10.0 - 22.0 ratio AH ADM SS XR CHEST 2 VIEWSon 2 XR CHEST 2 VIEWS ORIGINAL EXAMINATION: TWO XRAY VIEWS OF THE CHEST 02/11/2022 1:21 pm COMPARISON: 02/06/2022 HISTORY: ORDERING SYSTEM PROVIDED HISTORY: Reason for Exam: Abnormal breath sounds FINDINGS: The cardiomediastinal silhouette appears unchanged. Median sternotomy wires and midline surgical clips identified. There is linear airspace disease at the bases bilaterally favoring atelectasis. Small left pleural effusion. No vascular congestion or pneumothorax. Mild degenerative changes are visible in the spine. IMPRESSION: 1. Small left pleural effusion. 2. Linear bibasilar airspace disease favors atelectasis or scarring. Interpreted by: Hazel Holder MD Preliminary Report By: Hazel Holder MD Electronically signed By Hazel Holder MD Dictated Date: 02/11/2022 6:27:07 PM Prelim Date: 02/11/2022 6:27:59 PM Sign Date: 02/11/2022 6:27:59 PM Ordering Provider: MELVIN BARBOSA [facility] ([place]) .GFRon 02-06-2022 GFR >60 [facility] ([place]) Comment on above: Result Comment: GFR Population mean for , Non- Americans Ages 20-29 = 116 mL/min/1.73 sq.m. Ages 30-39 = 107 mL/min/1.73 sq.m. Ages 40-49 = 99 mL/min/1.73 sq.m. Ages 50-59 = 93 mL/min/1.73 sq.m. Ages 60-69 = 85 mL/min/1.73 sq.m. Ages 70+ = 75 mL/min/1.73 sq.m. Chronic Kidney Disease: Less than 60 mL/min/1.73 square meters End Stage Renal Disease: Less than 15 mL/min/1.73 square meters Performed By: #### C BC, GFR, ANEU, CMP, ADIFF #### [place] [address] GFR Non- >60 Normal [facility] ([place]) Comment on above: Result Comment: GFR Population mean for , Non- Americans Ages 20-29 = 116 mL/min/1.73 sq.m. Ages 30-39 = 107 mL/min/1.73 sq.m. Ages 40-49 = 99 mL/min/1.73 sq.m. Ages 50-59 = 93 mL/min/1.73 sq.m. Ages 60-69 = 85 mL/min/1.73 sq.m. Ages 70+ = 75 mL/min/1.73 sq.m. Chronic Kidney Disease: Less than 60 mL/min/1.73 square meters End Stage Renal Disease: Less than 15 mL/min/1.73 square meters Performed By: #### C BC, GFR, ANEU, CMP, ADIFF #### [address] [address] BMPon 02-06-2022 BUN/Creatinine Ratio 32.9 ratio High 10.0-22.0 [facility] ([place]) Comment on above: Performed By: #### C BC, GFR, ANEU, CMP, ADIFF #### [address] [address] Calcium [Mass/Vol] 10.1 mg/dL Normal 8.7-10.4 [facility] ([place]) Comment on above: Performed By: #### C BC, GFR, ANEU, CMP, ADIFF #### [address] [address] Chloride [Moles/Vol] 98 mmol/L Normal 98-110 [facility] ([place]) Comment on above: Performed By: #### C BC, GFR, ANEU, CMP, ADIFF #### [address] [address] CO2 [Moles/Vol] 32 mmol/L Normal 22-32 [facility] ([place]) Comment on above: Performed By: #### C BC, GFR, ANEU, CMP, ADIFF #### [address] [address] Creatinine [Mass/Vol] 0.85 mg/dL Normal 0.60-1.40 [facility] ([place]) Comment on above: Performed By: #### C BC, GFR, ANEU, CMP, ADIFF #### [address] [address] Electrolyte Balance 5.0 mEq/L Normal 4.0-15.0 [facility] ([place]) Comment on above: Performed By: #### C BC, GFR, ANEU, CMP, ADIFF #### [address] [address] Glucose [Mass/Vol] 130 mg/dL High 70-110 [facility] ([place]) Comment on above: Performed By: #### C BC, GFR, ANEU, CMP, ADIFF #### [address] [address] Potassium [Moles/Vol] 3.5 mmol/L Normal 3.5-5.0 [facility] ([place]) Comment on above: Result Comment: Spec imen slightly hemolyzed. Performed By: #### C BC, GFR, ANEU, CMP, ADIFF #### [facility] [address] [place] [address] Sodium [Moles/Vol] 135 mmol/L Low 136-145 [facility] ([place]) Comment on above: Performed By: #### C BC, GFR, ANEU, CMP, ADIFF #### [facility] [address] [place] [address] Urea nitrogen [Mass/Vol] 28.0 mg/dL High 8.0-22.0 [facility] ([place]) Comment on above: Performed By: #### C BC, GFR, ANEU, CMP, ADIFF #### [address] [address] LABORATORYOrdered By: Agustin Doe on 02-06-2022 Blood Glucose Testing Reason Routine (02/06/22 11:28 AM) [facility] Work Phone: Glucose [Mass/Vol] 139 mg/dL Invalid Interpretation Code 70 - 110 mg/dL [facility] Work Phone: LABORATORYOrdered By: SYSTEM SYSTEM on 02-06-2022 Calcium [Mass/Vol] 10.1 mg/dL Invalid Interpretation Code 8.7 - 10.4 mg/dL ADM SS Chloride [Moles/Vol] 98 mmol/L Invalid Interpretation Code 98 - 110 mEq/L ADM SS CO2 [Moles/Vol] 32 mmol/L Invalid Interpretation Code 22 - 32 mEq/L ADM SS Creatinine [Mass/Vol] 0.85 mg/dL Invalid Interpretation Code 0.60 - 1.40 mg/dL ADM SS Electrolyte Balance 5.0 mEq/L Invalid Interpretation Code 4.0 - 15.0 mEq/L AH ADM SS GFR/1.73 sq M.predicted among blacks MDRD (S/P/Bld) [Vol rate/Area] ml/min/1.73sqm Invalid Interpretation Code AH ADM SS GFR/1.73 sq M.predicted among non-blacks MDRD (S/P/Bld) [Vol rate/Area] ml/min/1.73sqm Invalid Interpretation Code AH ADM SS Glucose [Mass/Vol] 130 mg/dL Invalid Interpretation Code 70 - 110 mg/dL AH ADM SS Potassium [Moles/Vol] 3.5 mmol/L Invalid Interpretation Code 3.5 - 5.0 mEq/L AH ADM SS Comment on above: Result Comment: Spec imen slightly hemolyzed. Sodium [Moles/Vol] 135 mmol/L Invalid Interpretation Code 136 - 145 mEq/L AH ADM SS Urea nitrogen [Mass/Vol] 28.0 mg/dL Invalid Interpretation Code 8.0 - 22.0 mg/dL AH ADM SS Urea nitrogen/Creatinine [Mass ratio] 32.9 ratio Invalid Interpretation Code 10.0 - 22.0 ratio AH ADM SS XR CHEST 2 VIEWSon XR CHEST 2 VIEWS ORIGINAL EXAMINATION: TWO XRAY VIEWS OF THE CHEST 02/06/2022 4:58 am COMPARISON: 02/05/2022 HISTORY: ORDERING SYSTEM PROVIDED HISTORY: Reason for Exam: Abnormal breath sounds IMPRESSION: Unchanged left subclavian catheter. Cardiomediastinal silhouette unchanged. Persistent mild bibasilar atelectasis. Very small bilateral pleural effusions have improved. No pneumothorax. Preliminary Report was Dictated by a Resident Interpreted by: Joey Salazar MD Preliminary Report By: Job Paz Electronically signed By Joey Salazar MD Dictated Date: 02/06/2022 5:53:26 AM Prelim Date: 02/06/2022 5:55:45 AM Sign Date: 02/06/2022 6:35:22 AM Ordering Provider: JENNY LAWRENCE [facility] ([place]) .GFRon 02-05-2022 GFR >60 [facility] ([place]) Comment on above: Result Comment: GFR Population mean for , Non- Americans Ages 20-29 = 116 mL/min/1.73 sq.m. Ages 30-39 = 107 mL/min/1.73 sq.m. Ages 40-49 = 99 mL/min/1.73 sq.m. Ages 50-59 = 93 mL/min/1.73 sq.m. Ages 60-69 = 85 mL/min/1.73 sq.m. Ages 70+ = 75 mL/min/1.73 sq.m. Chronic Kidney Disease: Less than 60 mL/min/1.73 square meters End Stage Renal Disease: Less than 15 mL/min/1.73 square meters Performed By: #### C BC, GFR, ANEU, CMP, ADIFF #### [address] [address] GFR Non- >60 Normal [facility] ([place]) Comment on above: Result Comment: GFR Population mean for , Non- Americans Ages 20-29 = 116 mL/min/1.73 sq.m. Ages 30-39 = 107 mL/min/1.73 sq.m. Ages 40-49 = 99 mL/min/1.73 sq.m. Ages 50-59 = 93 mL/min/1.73 sq.m. Ages 60-69 = 85 mL/min/1.73 sq.m. Ages 70+ = 75 mL/min/1.73 sq.m. Chronic Kidney Disease: Less than 60 mL/min/1.73 square meters End Stage Renal Disease: Less than 15 mL/min/1.73 square meters Performed By: #### C BC, GFR, ANEU, CMP, ADIFF #### [address] [address] [facility] 02-05-2022 BUN/Creatinine Ratio 24.5 ratio High 10.0-22.0 [facility] ([place]) Comment on above: Performed By: #### C BC, GFR, ANEU, CMP, ADIFF #### [address] [address] Calcium [Mass/Vol] 10.0 mg/dL Normal 8.7-10.4 [facility] ([place]) Comment on above: Performed By: #### C BC, GFR, ANEU, CMP, ADIFF #### [address] [address] Chloride [Moles/Vol] 98 mmol/L Normal 98-110 [facility] ([place]) Comment on above: Performed By: #### C BC, GFR, ANEU, CMP, ADIFF #### [address] [address] CO2 [Moles/Vol] 32 mmol/L Normal 22-32 [facility] ([place]) Comment on above: Performed By: #### C BC, GFR, ANEU, CMP, ADIFF #### [address] [address] Creatinine [Mass/Vol] 0.94 mg/dL Normal 0.60-1.40 [facility] ([place]) Comment on above: Performed By: #### C BC, GFR, ANEU, CMP, ADIFF #### [address] [address] Electrolyte Balance 5.0 mEq/L Normal 4.0-15.0 [facility] ([place]) Comment on above: Performed By: #### C BC, GFR, ANEU, CMP, ADIFF #### [address] [address] Glucose [Mass/Vol] 140 mg/dL High 70-110 [facility] ([place]) Comment on above: Performed By: #### C BC, GFR, ANEU, CMP, ADIFF #### [address] [address] Potassium [Moles/Vol] 3.6 mmol/L Normal 3.5-5.0 [facility] ([place]) Comment on above: Performed By: #### C BC, GFR, ANEU, CMP, ADIFF #### [address] [address] Sodium [Moles/Vol] 135 mmol/L Low 136-145 [facility] ([place]) Comment on above: Performed By: #### C BC, GFR, ANEU, CMP, ADIFF #### [address] [address] Urea nitrogen [Mass/Vol] 23.0 mg/dL High 8.0-22.0 [facility] ([place]) Comment on above: Performed By: #### C BC, GFR, ANEU, CMP, ADIFF #### [address] [address] LABORATORYOrdered By: Vincenzo Parra on 02-05-2022 Blood Glucose Testing Reason Routine (02/05/22 9:03 PM) [facility] Work Phone: Glucose [Mass/Vol] 187 mg/dL Invalid Interpretation Code 70 - 110 mg/dL [facility] Work Phone: Blood Glucose Testing Reason Routine (02/05/22 4:02 PM) [facility] Work Phone: Glucose [Mass/Vol] 164 mg/dL Invalid Interpretation Code 70 - 110 mg/dL [facility] Work Phone: LABORATORYOrdered By: SYSTEM SYSTEM on 02-05-2022 Calcium [Mass/Vol] 10.0 mg/dL Invalid Interpretation Code 8.7 - 10.4 mg/dL ADM SS Chloride [Moles/Vol] 98 mmol/L Invalid Interpretation Code 98 - 110 mEq/L ADM SS CO2 [Moles/Vol] 32 mmol/L Invalid Interpretation Code 22 - 32 mEq/L ADM SS Creatinine [Mass/Vol] 0.94 mg/dL Invalid Interpretation Code 0.60 - 1.40 mg/dL ADM SS Electrolyte Balance 5.0 mEq/L Invalid Interpretation Code 4.0 - 15.0 mEq/L AH ADM SS GFR/1.73 sq M.predicted among blacks MDRD (S/P/Bld) [Vol rate/Area] ml/min/1.73sqm Invalid Interpretation Code AH ADM SS GFR/1.73 sq M.predicted among non-blacks MDRD (S/P/Bld) [Vol rate/Area] ml/min/1.73sqm Invalid Interpretation Code ADM SS Glucose [Mass/Vol] 140 mg/dL Invalid Interpretation Code 70 - 110 mg/dL ADM SS Potassium [Moles/Vol] 3.6 mmol/L Invalid Interpretation Code 3.5 - 5.0 mEq/L ADM SS Sodium [Moles/Vol] 135 mmol/L Invalid Interpretation Code 136 - 145 mEq/L ADM SS Urea nitrogen [Mass/Vol] 23.0 mg/dL Invalid Interpretation Code 8.0 - 22.0 mg/dL ADM SS Urea nitrogen/Creatinine [Mass ratio] 24.5 ratio Invalid Interpretation Code 10.0 - 22.0 ratio AH ADM SS XR CHEST 2 VIEWSon XR CHEST 2 VIEWS ORIGINAL EXAMINATION: TWO XRAY VIEWS OF THE CHEST02/05/2022 7:19 am COMPARISON: Chest radiograph February 04, 2022 HISTORY: ORDERING SYSTEM PROVIDED HISTORY: Reason for Exam: Abnormal breath sounds FINDINGS: Similar appearing midline sternotomy wires and surgical joseline. Unchanged left subclavian central venous catheter. The cardiomediastinal silhouette is stable. There is no focal consolidative opacity. Unchanged trace bilateral pleural effusions with adjacent subsegmental atelectasis. No pneumothorax. IMPRESSION: Stable exam with unchanged trace bilateral pleural effusions and adjacent subsegmental atelectasis. I have personally reviewed the images of this examination and agree with the resident's findings and interpretation. Interpreted by: Goyo Mcdonough MD Preliminary Report By: Lino Elam Electronically signed By Goyo Mcdonough MD Dictated Date: 02/05/2022 9:04:03 AM Prelim Date: 02/05/2022 9:12:59 AM Sign Date: 02/05/2022 9:43:05 AM Ordering Provider: JENNY Gibson [facility] ([place]) .Auto Diffon 02-04-2022 Basophil, Absolute 0.10 10 3/mcL Normal 0.00-0.27 [facility] ([place] Comment on above: Performed By: #### G FR, MG, BMP, CBC, ADIFF, ANEU #### [address] [address] Basophils/100 WBC (Bld) 0.6 % Normal 0.0-2.5 [facility] ([place]) Comment on above: Performed By: #### G FR, MG, BMP, CBC, ADIFF, ANEU #### [address] [address] Eosinophil, Absolute 0.20 10 3/mcL Normal 0.00-0.65 [facility] ([place]) Comment on above: Performed By: #### G FR, MG, BMP, CBC, ADIFF, ANEU #### [address] [address] Eosinophils/100 WBC (Bld) 2.0 % Normal 0.0-6.0 [facility] ([place]) Comment on above: Performed By: #### G FR, MG, BMP, CBC, ADIFF, ANEU #### [address] [address] Lymphocyte, Absolute 1.30 10 3/mcL Normal 0.90-4.32 [facility] ([place]) Comment on above: Performed By: #### G FR, MG, BMP, CBC, ADIFF, ANEU #### [address] [address] Lymphocytes/100 WBC (Bld) 14.7 % Low 20.0-40.0 [facility] ([place]) Comment on above: Performed By: #### G FR, MG, BMP, CBC, ADIFF, ANEU #### [address] [address] Monocyte, Absolute 0.60 10 3/mcL Normal 0.09-1.40 [facility] ([place] Comment on above: Performed By: #### G FR, MG, BMP, CBC, ADIFF, ANEU #### [address] [address] Monocytes/100 WBC (Bld) 7.0 % Normal 2.0-13.0 [facility] ([place]) Comment on above: Performed By: #### G FR, MG, BMP, CBC, ADIFF, ANEU #### [address] [address] Neutrophils/100 WBC (Bld) 75.7 % High 50.0-75.0 [facility] ([place]) Comment on above: Performed By: #### G FR, MG, BMP, CBC, ADIFF, ANEU #### [address] [address] .GFRon 02-04-2022 GFR >60 Normal [facility] ([place]) Comment on above: Result Comment: GFR Population mean for , Non- Americans Ages 20-29 = 116 mL/min/1.73 sq.m. Ages 30-39 = 107 mL/min/1.73 sq.m. Ages 40-49 = 99 mL/min/1.73 sq.m. Ages 50-59 = 93 mL/min/1.73 sq.m. Ages 60-69 = 85 mL/min/1.73 sq.m. Ages 70+ = 75 mL/min/1.73 sq.m. Chronic Kidney Disease: Less than 60 mL/min/1.73 square meters End Stage Renal Disease: Less than 15 mL/min/1.73 square meters Performed By: #### G FR, MG, BMP, CBC, ADIFF, ANEU #### [address] [address] GFR Non- >60 Normal [facility] ([place]) Comment on above: Result Comment: GFR Population mean for , Non- Americans Ages 20-29 = 116 mL/min/1.73 sq.m. Ages 30-39 = 107 mL/min/1.73 sq.m. Ages 40-49 = 99 mL/min/1.73 sq.m. Ages 50-59 = 93 mL/min/1.73 sq.m. Ages 60-69 = 85 mL/min/1.73 sq.m. Ages 70+ = 75 mL/min/1.73 sq.m. Chronic Kidney Disease: Less than 60 mL/min/1.73 square meters End Stage Renal Disease: Less than 15 mL/min/1.73 square meters Performed By: #### G FR, MG, BMP, CBC, ADIFF, ANEU #### [place] [address] .NEUABSon 02-04-2022 Neutrophil, Absolute 6.80 10 3/mcL Normal 2.25-8.10 [facility] ([place]) Comment on above: Performed By: #### G FR, MG, BMP, CBC, ADIFF, ANEU #### [address] [address] CBCon 02-04-2022 Erythrocyte distribution width (RBC) [Ratio] 13.2 % Normal 11.5-15.5 [facility] ([place]) Comment on above: Performed By: #### G FR, MG, BMP, CBC, ADIFF, ANEU #### [place] [address] Hematocrit (Bld) [Volume fraction] 33.6 % Low 40.0-52.0 [facility] ([place]) Comment on above: Performed By: #### G FR, MG, BMP, CBC, ADIFF, ANEU #### [place] [address] Hgb 11.8 G/dL Low 13.0-17.5 [facility] ([place]) Comment on above: Performed By: #### G FR, MG, BMP, CBC, ADIFF, ANEU #### [place] [address] MCH (RBC) [Entitic mass] 31.4 pg Normal 27.0-33.0 [facility] ([place]) Comment on above: Performed By: #### G FR, MG, BMP, CBC, ADIFF, ANEU #### [place] [address] MCHC 35.2 G/dL Normal 32.0-36.0 [facility] ([place]) Comment on above: Performed By: #### G FR, MG, BMP, CBC, ADIFF, ANEU #### [place] [address] MCV (RBC) [Entitic vol] 89.3 fL Normal 81.0-100.0 [facility] ([place]) Comment on above: Performed By: #### G FR, MG, BMP, CBC, ADIFF, ANEU #### [place] [address] Platelet 274 10 3/mcL Normal 150-450 [facility] ([place]) Comment on above: Performed By: #### G FR, MG, BMP, CBC, ADIFF, ANEU #### [place] [address] Platelet mean volume (Bld) [Entitic vol] 7.9 fL Normal 6.4-10.5 [facility] ([place]) Comment on above: Performed By: #### G FR, MG, BMP, CBC, ADIFF, ANEU #### [place] [address] RBC 3.76 10 6/mcL Low 4.50-6.00 [facility] ([place]) Comment on above: Performed By: #### G FR, MG, BMP, CBC, ADIFF, ANEU #### [address] [address] WBC 8.90 10 3/mcL Normal 4.50-10.80 [facility] ([place]) Comment on above: Performed By: #### G FR, MG, BMP, CBC, ADIFF, ANEU #### [address] [address] CMPon 02-04-2022 Albumin Level 3.6 G/dL Normal 3.2-4.8 [facility] ([place]) Comment on above: Performed By: #### G FR, MG, BMP, CBC, ADIFF, ANEU #### [place] [address] Albumin/Globulin [Mass ratio] 1.3 {ratio} Normal 0.9-1.6 [facility] ([place]) Comment on above: Performed By: #### G FR, MG, BMP, CBC, ADIFF, ANEU #### [place] [address] ALP [Catalytic activity/Vol] 76 U/L Normal 38-126 [facility] ([place]) Comment on above: Performed By: #### G FR, MG, BMP, CBC, ADIFF, ANEU #### [place] [address] ALT [Catalytic activity/Vol] 25 U/L Normal 12-55 [facility] ([place]) Comment on above: Performed By: #### G FR, MG, BMP, CBC, ADIFF, ANEU #### [place] [id number] AST [Catalytic activity/Vol] 20 U/L Normal 8-34 [facility] ([place]) Comment on above: Performed By: #### G FR, MG, BMP, CBC, ADIFF, ANEU #### [place] [address] Bili Total 0.60 mg/dL Normal 0.20-1.20 [facility] ([place]) Comment on above: Result Comment: Use of this assay is not recommended for patients undergoing treatment with eltrombopag due to the potential for falsely elevated results. Performed By: #### G FR, MG, BMP, CBC, ADIFF, ANEU #### [facility] [address] [place], [place] [address] BUN/Creatinine Ratio 21.8 ratio Normal 10.0-22.0 [facility] ([place]) Comment on above: Performed By: #### G FR, MG, BMP, CBC, ADIFF, ANEU #### [address] [address] Calcium [Mass/Vol] 8.9 mg/dL Normal 8.7-10.4 [facility] ([place]) Comment on above: Performed By: #### G FR, MG, BMP, CBC, ADIFF, ANEU #### [place] [address] Chloride [Moles/Vol] 102 mmol/L Normal 98-110 [facility] ([place]) Comment on above: Performed By: #### G FR, MG, BMP, CBC, ADIFF, ANEU #### [place] [id number] CO2 [Moles/Vol] 26 mmol/L Normal 22-32 [facility] ([place]) Comment on above: Performed By: #### G FR, MG, BMP, CBC, ADIFF, ANEU #### [place] [address] Creatinine [Mass/Vol] 0.78 mg/dL Normal 0.60-1.40 [facility] ([place]) Comment on above: Performed By: #### G FR, MG, BMP, CBC, ADIFF, ANEU #### [place] [id number] Electrolyte Balance 7.0 mEq/L Normal 4.0-15.0 [facility] ([place]) Comment on above: Performed By: #### G FR, MG, BMP, CBC, ADIFF, ANEU #### [place] [id number] Globulin 2.7 G/dL Normal 1.5-3.8 [facility] ([place]) Comment on above: Performed By: #### G FR, MG, BMP, CBC, ADIFF, ANEU #### [place] [id number] Glucose [Mass/Vol] 130 mg/dL High 70-110 [facility] ([place]) Comment on above: Performed By: #### G FR, MG, BMP, CBC, ADIFF, ANEU #### [place] [address] Potassium [Moles/Vol] 4.0 mmol/L Normal 3.5-5.0 [facility] ([place]) Comment on above: Performed By: #### G FR, MG, BMP, CBC, ADIFF, ANEU #### [place] [address] Sodium [Moles/Vol] 135 mmol/L Low 136-145 [facility] ([place]) Comment on above: Performed By: #### G FR, MG, BMP, CBC, ADIFF, ANEU #### [place] [address] Total Protein 6.3 G/dL Normal 5.7-8.2 [facility] ([place]) Comment on above: Result Comment: No te - New Reference Range in effect 20 Performed By: #### G FR, MG, BMP, CBC, ADIFF, ANEU #### [place] [address] Urea nitrogen [Mass/Vol] 17.0 mg/dL Normal 8.0-22.0 [facility] ([place]) Comment on above: Performed By: #### G FR, MG, BMP, CBC, ADIFF, ANEU #### [place] [address] LABORATORYOrdered By: SYSTEM SYSTEM on 02-04-2022 Albumin BCP dye [Mass/Vol] 3.6 G/dL Invalid Interpretation Code 3.2 - 4.8 G/dL ADM SS Albumin/Globulin [Mass ratio] 1.3 {ratio} Invalid Interpretation Code 0.9 - 1.6 ratio AH ADM SS ALP [Catalytic activity/Vol] 76 U/L Invalid Interpretation Code 38 - 126 U/L ADM SS ALT No additional P-5'-P [Catalytic activity/Vol] 25 U/L Invalid Interpretation Code 12 - 55 U/L ADM SS AST [Catalytic activity/Vol] 20 U/L Invalid Interpretation Code 8 - 34 U/L AH ADM SS Basophils (Bld) [#/Vol] 0.10 103/mcL Invalid Interpretation Code 0.00 - 0.27 10^3/mcL AH Remisol SS Basophils/100 WBC (Bld) 0.6 % Invalid Interpretation Code 0.0 - 2.5 % AH Remisol SS Bilirubin [Mass/Vol] 0.60 mg/dL Invalid Interpretation Code 0.20 - 1.20 mg/dL AH ADM SS Calcium [Mass/Vol] 8.9 mg/dL Invalid Interpretation Code 8.7 - 10.4 mg/dL AH ADM SS Chloride [Moles/Vol] 102 mmol/L Invalid Interpretation Code 98 - 110 mEq/L AH ADM SS CO2 [Moles/Vol] 26 mmol/L Invalid Interpretation Code 22 - 32 mEq/L AH ADM SS Creatinine [Mass/Vol] 0.78 mg/dL Invalid Interpretation Code 0.60 - 1.40 mg/dL AH ADM SS Electrolyte Balance 7.0 mEq/L Invalid Interpretation Code 4.0 - 15.0 mEq/L AH ADM SS Eosinophils (Bld) [#/Vol] 0.20 103/mcL Invalid Interpretation Code 0.00 - 0.65 10^3/mcL AH Remisol SS Eosinophils/100 WBC (Bld) 2.0 % Invalid Interpretation Code 0.0 - 6.0 % AH Remisol SS Erythrocyte distribution width (RBC) [Ratio] 13.2 % Invalid Interpretation Code 11.5 - 15.5 % AH Remisol SS GFR/1.73 sq M.predicted among blacks MDRD (S/P/Bld) [Vol rate/Area] ml/min/1.73sqm Invalid Interpretation Code AH ADM SS GFR/1.73 sq M.predicted among non-blacks MDRD (S/P/Bld) [Vol rate/Area] ml/min/1.73sqm Invalid Interpretation Code AH ADM SS Globulin 2.7 G/dL Invalid Interpretation Code 1.5 - 3.8 G/dL AH ADM SS Glucose [Mass/Vol] 130 mg/dL Invalid Interpretation Code 70 - 110 mg/dL AH ADM SS Hematocrit (Bld) [Volume fraction] 33.6 % Invalid Interpretation Code 40.0 - 52.0 % AH Remisol SS Hemoglobin (Bld) [Mass/Vol] 11.8 G/dL Invalid Interpretation Code 13.0 - 17.5 G/dL AH Remisol SS Lymphocytes (Bld) [#/Vol] 1.30 103/mcL Invalid Interpretation Code 0.90 - 4.32 10^3/mcL AH Remisol SS Lymphocytes/100 WBC (Bld) 14.7 % Invalid Interpretation Code 20.0 - 40.0 % AH Remisol SS MCH (RBC) [Entitic mass] 31.4 pg Invalid Interpretation Code 27.0 - 33.0 pg AH Remisol SS MCHC (RBC) [Mass/Vol] 35.2 G/dL Invalid Interpretation Code 32.0 - 36.0 G/dL AH Remisol SS MCV (RBC) [Entitic vol] 89.3 fL Invalid Interpretation Code 81.0 - 100.0 fL AH Remisol SS Monocytes (Bld) [#/Vol] 0.60 103/mcL Invalid Interpretation Code 0.09 - 1.40 10^3/mcL AH Remisol SS Monocytes/100 WBC (Bld) 7.0 % Invalid Interpretation Code 2.0 - 13.0 % AH Remisol SS Neutrophils (Bld) [#/Vol] 6.80 103/mcL Invalid Interpretation Code 2.25 - 8.10 10^3/mcL AH Remisol SS Neutrophils/100 WBC (Bld) 75.7 % Invalid Interpretation Code 50.0 - 75.0 % AH Remisol SS Platelet mean volume (Bld) [Entitic vol] 7.9 fL Invalid Interpretation Code 6.4 - 10.5 fL AH Remisol SS Platelets (Bld) [#/Vol] 274 103/mcL Invalid Interpretation Code 150 - 450 10^3/mcL AH Remisol SS Potassium [Moles/Vol] 4.0 mmol/L Invalid Interpretation Code 3.5 - 5.0 mEq/L AH ADM SS Protein [Mass/Vol] 6.3 G/dL Invalid Interpretation Code 5.7 - 8.2 G/dL AH ADM SS RBC (Bld) [#/Vol] 3.76 106/mcL Invalid Interpretation Code 4.50 - 6.00 10^6/mcL AH Remisol SS Sodium [Moles/Vol] 135 mmol/L Invalid Interpretation Code 136 - 145 mEq/L AH ADM SS Urea nitrogen [Mass/Vol] 17.0 mg/dL Invalid Interpretation Code 8.0 - 22.0 mg/dL ADM SS Urea nitrogen/Creatinine [Mass ratio] 21.8 ratio Invalid Interpretation Code 10.0 - 22.0 ratio AH ADM SS WBC (Bld) [#/Vol] 8.90 103/mcL Invalid Interpretation Code 4.50 - 10.80 10^3/mcL Remisol SS XR CHEST 2 VIEWSon XR CHEST 2 VIEWS ORIGINAL EXAMINATION: TWO XRAY VIEWS OF THE CHEST 02/04/2022 6:48 am COMPARISON: 02/03/2022 HISTORY: ORDERING SYSTEM PROVIDED HISTORY: Reason for Exam: abnormal breath sounds FINDINGS: Left subclavian central line unchanged in position. Sternotomy wires midline and intact. Small bilateral pleural effusions with adjacent atelectasis. No appreciable pneumothorax. No focal consolidation. Bones are unremarkable IMPRESSION: No significant change. Small bilateral pleural effusions. I have personally reviewed the images of this examination and agree with the resident's findings and interpretation. Interpreted by: Joey Salazar MD Preliminary Report By: Job Paz Electronically signed By Joey Salazar MD Dictated Date: 02/04/2022 7:07:48 AM Prelim Date: 02/04/2022 7:08:58 AM Sign Date: 02/04/2022 7:45:46 AM Ordering Provider: JENNY Gibson [facility] ([place]) .Auto Diffon 02-03-2022 Basophil, Absolute 0.00 10 3/mcL Normal [facility]00-0.27 [facility] Comment on above: Performed By: #### C BC, GFR, ANEU, CMP, ADIFF #### [address] [address] Basophils/100 WBC (Bld) 0.6 % Normal 0.0-2.5 [facility] ([place]) Comment on above: Performed By: #### C BC, GFR, ANEU, CMP, ADIFF #### [address] [address] Eosinophil, Absolute 0.20 10 3/mcL Normal 0.00-0.65 [facility] ([place]) Comment on above: Performed By: #### C BC, GFR, ANEU, CMP, ADIFF #### [address] [address] Eosinophils/100 WBC (Bld) 2.4 % Normal 0.0-6.0 [facility] ([place]) Comment on above: Performed By: #### C BC, GFR, ANEU, CMP, ADIFF #### [address] [address] Lymphocyte, Absolute 1.70 10 3/mcL Normal 0.90-4.32 A [facility] ([place]) Comment on above: Performed By: #### C BC, GFR, ANEU, CMP, ADIFF #### [address] [address] Lymphocytes/100 WBC (Bld) 21.7 % Normal 20.0-40.0 [facility] ([place]) Comment on above: Performed By: #### C BC, GFR, ANEU, CMP, ADIFF #### [address] [address] Monocyte, Absolute 0.50 10 3/mcL Normal 0.09-1.40 [facility] [place] Comment on above: Performed By: #### C BC, GFR, ANEU, CMP, ADIFF #### [address] [address] Monocytes/100 WBC (Bld) 7.0 % Normal 2.0-13.0 [facility] ([place]) Comment on above: Performed By: #### C BC, GFR, ANEU, CMP, ADIFF #### [address] [address] Neutrophils/100 WBC (Bld) 68.3 % Normal 50.0-75.0 [facility] ([place]) Comment on above: Performed By: #### C BC, GFR, ANEU, CMP, ADIFF #### [address] [address] .GFRon 02-03-2022 GFR >60 Normal [facility] ([place]) Comment on above: Result Comment: GFR Population mean for , Non- Americans Ages 20-29 = 116 mL/min/1.73 sq.m. Ages 30-39 = 107 mL/min/1.73 sq.m. Ages 40-49 = 99 mL/min/1.73 sq.m. Ages 50-59 = 93 mL/min/1.73 sq.m. Ages 60-69 = 85 mL/min/1.73 sq.m. Ages 70+ = 75 mL/min/1.73 sq.m. Chronic Kidney Disease: Less than 60 mL/min/1.73 square meters End Stage Renal Disease: Less than 15 mL/min/1.73 square meters Performed By: #### C BC, GFR, ANEU, CMP, ADIFF #### [address] [address] GFR Non- >60 Normal [facility] ([place]) Comment on above: Result Comment: GFR Population mean for , Non- Americans Ages 20-29 = 116 mL/min/1.73 sq.m. Ages 30-39 = 107 mL/min/1.73 sq.m. Ages 40-49 = 99 mL/min/1.73 sq.m. Ages 50-59 = 93 mL/min/1.73 sq.m. Ages 60-69 = 85 mL/min/1.73 sq.m. Ages 70+ = 75 mL/min/1.73 sq.m. Chronic Kidney Disease: Less than 60 mL/min/1.73 square meters End Stage Renal Disease: Less than 15 mL/min/1.73 square meters Performed By: #### C BC, GFR, ANEU, CMP, ADIFF #### [address] [address] .NEUABSon 02-03-2022 Neutrophil, Absolute 5.20 10 3/mcL Normal 2.25-8.10 [facility] ([place]) Comment on above: Performed By: #### C BC, GFR, ANEU, CMP, ADIFF #### [address] [address] BMPon 02-03-2022 BUN/Creatinine Ratio 26.6 ratio High 10.0-22.0 [facility] ([place]) Comment on above: Performed By: #### C BC, GFR, ANEU, CMP, ADIFF #### [address] [address] Calcium [Mass/Vol] 8.9 mg/dL Normal 8.7-10.4 [facility] ([place]) Comment on above: Performed By: #### C BC, GFR, ANEU, CMP, ADIFF #### [address] [address] Chloride [Moles/Vol] 103 mmol/L Normal 98-110 [facility] ([place]) Comment on above: Performed By: #### C BC, GFR, ANEU, CMP, ADIFF #### [address] [address] CO2 [Moles/Vol] 27 mmol/L Normal 22-32 [facility] ([place]) Comment on above: Performed By: #### C BC, GFR, ANEU, CMP, ADIFF #### [address] [address] Creatinine [Mass/Vol] 0.94 mg/dL Normal 0.60-1.40 [facility] ([place]) Comment on above: Performed By: #### C BC, GFR, ANEU, CMP, ADIFF #### [address] [address] Electrolyte Balance 6.0 mEq/L Normal 4.0-15.0 [facility] ([place]) Comment on above: Performed By: #### C BC, GFR, ANEU, CMP, ADIFF #### [address] [address] Glucose [Mass/Vol] 139 mg/dL High 70-110 [facility] ([place]) Comment on above: Performed By: #### C BC, GFR, ANEU, CMP, ADIFF #### [address] [address] Potassium [Moles/Vol] 3.8 mmol/L Normal 3.5-5.0 [facility] ([place]) Comment on above: Performed By: #### C BC, GFR, ANEU, CMP, ADIFF #### [address] [address] Sodium [Moles/Vol] 136 mmol/L Normal 136-145 [facility] ([place]) Comment on above: Performed By: #### C BC, GFR, ANEU, CMP, ADIFF #### [place] [address] Urea nitrogen [Mass/Vol] 25.0 mg/dL High 8.0-22.0 [facility] ([place]) Comment on above: Performed By: #### C BC, GFR, ANEU, CMP, ADIFF #### [place] [address] CBCon 02-03-2022 Erythrocyte distribution width (RBC) [Ratio] 13.2 % Normal 11.5-15.5 [facility] ([place]) Comment on above: Performed By: #### C BC, GFR, ANEU, CMP, ADIFF #### [place] [address] Hematocrit (Bld) [Volume fraction] 33.3 % Low 40.0-52.0 [facility] ([place]) Comment on above: Performed By: #### C BC, GFR, ANEU, CMP, ADIFF #### [place] [address] Hgb 11.7 G/dL Low 13.0-17.5 [facility] ([place]) Comment on above: Performed By: #### C BC, GFR, ANEU, CMP, ADIFF #### [place] [address] MCH (RBC) [Entitic mass] 31.4 pg Normal 27.0-33.0 [facility] ([place]) Comment on above: Performed By: #### C BC, GFR, ANEU, CMP, ADIFF #### [place] [address] MCHC 35.0 G/dL Normal 32.0-36.0 [facility] ([place]) Comment on above: Performed By: #### C BC, GFR, ANEU, CMP, ADIFF #### [place] [address] MCV (RBC) [Entitic vol] 89.6 fL Normal 81.0-100.0 [facility] ([place]) Comment on above: Performed By: #### C BC, GFR, ANEU, CMP, ADIFF #### [place] [address] Platelet 204 10 3/mcL Normal 150-450 [facility] ([place]) Comment on above: Performed By: #### C BC, GFR, ANEU, CMP, ADIFF #### [place] [address] Platelet mean volume (Bld) [Entitic vol] 8.1 fL Normal 6.4-10.5 [facility] ([place]) Comment on above: Performed By: #### C BC, GFR, ANEU, CMP, ADIFF #### [place] [address] RBC 3.72 10 6/mcL Low 4.50-6.00 [facility] ([place]) Comment on above: Performed By: #### C BC, GFR, ANEU, CMP, ADIFF #### [place] [address] WBC 7.70 10 3/mcL Normal 4.50-10.80 [facility] ([place]) Comment on above: Performed By: #### C BC, GFR, ANEU, CMP, ADIFF #### [place] [address] Deni 02-03-2022 Potassium [Moles/Vol] 4.0 mmol/L Normal 3.5-5.0 [facility] ([place]) Comment on above: Performed By: #### G FR, MG, BMP, CBC, ADIFF, ANEU #### [place] [address] LABORATORYOrdered By: SYSTEM SYSTEM on 02-03-2022 Basophils (Bld) [#/Vol] 0.00 103/mcL Invalid Interpretation Code 0.00 - 0.27 10^3/mcL AH Remisol SS Basophils/100 WBC (Bld) 0.6 % Invalid Interpretation Code 0.0 - 2.5 % AH Remisol SS Eosinophils (Bld) [#/Vol] 0.20 103/mcL Invalid Interpretation Code 0.00 - 0.65 10^3/mcL AH Remisol SS Eosinophils/100 WBC (Bld) 2.4 % Invalid Interpretation Code 0.0 - 6.0 % AH Remisol SS Erythrocyte distribution width (RBC) [Ratio] 13.2 % Invalid Interpretation Code 11.5 - 15.5 % AH Remisol SS Hematocrit (Bld) [Volume fraction] 33.3 % Invalid Interpretation Code 40.0 - 52.0 % AH Remisol SS Hemoglobin (Bld) [Mass/Vol] 11.7 G/dL Invalid Interpretation Code 13.0 - 17.5 G/dL AH Remisol SS Lymphocytes (Bld) [#/Vol] 1.70 103/mcL Invalid Interpretation Code 0.90 - 4.32 10^3/mcL AH Remisol SS Lymphocytes/100 WBC (Bld) 21.7 % Invalid Interpretation Code 20.0 - 40.0 % AH Remisol SS MCH (RBC) [Entitic mass] 31.4 pg Invalid Interpretation Code 27.0 - 33.0 pg AH Remisol SS MCHC (RBC) [Mass/Vol] 35.0 G/dL Invalid Interpretation Code 32.0 - 36.0 G/dL AH Remisol SS MCV (RBC) [Entitic vol] 89.6 fL Invalid Interpretation Code 81.0 - 100.0 fL AH Remisol SS Monocytes (Bld) [#/Vol] 0.50 103/mcL Invalid Interpretation Code 0.09 - 1.40 10^3/mcL AH Remisol SS Monocytes/100 WBC (Bld) 7.0 % Invalid Interpretation Code 2.0 - 13.0 % AH Remisol SS Neutrophils (Bld) [#/Vol] 5.20 103/mcL Invalid Interpretation Code 2.25 - 8.10 10^3/mcL AH Remisol SS Neutrophils/100 WBC (Bld) 68.3 % Invalid Interpretation Code 50.0 - 75.0 % AH Remisol SS Platelet mean volume (Bld) [Entitic vol] 8.1 fL Invalid Interpretation Code 6.4 - 10.5 fL AH Remisol SS Platelets (Bld) [#/Vol] 204 103/mcL Invalid Interpretation Code 150 - 450 10^3/mcL AH Remisol SS RBC (Bld) [#/Vol] 3.72 106/mcL Invalid Interpretation Code 4.50 - 6.00 10^6/mcL AH Remisol SS WBC (Bld) [#/Vol] 7.70 103/mcL Invalid Interpretation Code 4.50 - 10.80 10^3/mcL AH Remisol SS MGon 05-16-2022 Magnesium [Mass/Vol] 1.9 mg/dL Normal 1.6-2.4 [facility] ([place]) Comment on above: Performed By: #### G FR, MG, BMP, CBC, ADIFF, ANEU #### [address] [address] XR CHEST 2 VIEWSon 2 XR CHEST 2 VIEWS ORIGINAL EXAMINATION: TWO XRAY VIEWS OF THE CHEST 02/03/2022 6:22 am COMPARISON: None. HISTORY: ORDERING SYSTEM PROVIDED HISTORY: Reason for Exam: Abnormal breath sounds IMPRESSION: Left subclavian central venous catheter terminates in the brachiocephalic vein. Sternotomy wires are present in the chest wall. Hazy airspace disease is present at the lung bases, there may be trace bilateral effusions. No pneumothorax. Interpreted by: Joey Salazar MD Preliminary Report By: Joey Salazar MD Electronically signed By Joey Salazar MD Dictated Date: 02/03/2022 8:10:17 AM Prelim Date: 02/03/2022 8:10:52 AM Sign Date: 02/03/2022 8:10:52 AM Ordering Provider: JENNY Gibson [facility] ([place]) .Auto Diffon 02-02-2022 Basophil, Absolute 0.00 10 3/mcL Normal 0.00-0.27 [facility] Comment on above: Performed By: #### C BC, GFR, ANEU, CMP, ADIFF #### [address] [address] Basophils/100 WBC (Bld) 0.6 % Normal 0.0-2.5 [facility] ([place]) Comment on above: Performed By: #### C BC, GFR, ANEU, CMP, ADIFF #### [address] [address] Eosinophil, Absolute 0.20 10 3/mcL Normal 0.00-0.65 [facility] ([place]) Comment on above: Performed By: #### C BC, GFR, ANEU, CMP, ADIFF #### [address] [address] Eosinophils/100 WBC (Bld) 2.0 % Normal 0.0-6.0 [facility] ([place]) Comment on above: Performed By: #### C BC, GFR, ANEU, CMP, ADIFF #### [address] [address] Lymphocyte, Absolute 1.00 10 3/mcL Normal 0.90-4.32 [facility] ([place]) Comment on above: Performed By: #### C BC, GFR, ANEU, CMP, ADIFF #### [address] [address] Lymphocytes/100 WBC (Bld) 12.1 % Low 20.0-40.0 [facility] ([place]) Comment on above: Performed By: #### C BC, GFR, ANEU, CMP, ADIFF #### [address] [address] Monocyte, Absolute 0.70 10 3/mcL Normal 0.09-1.40 [facility] [place] Comment on above: Performed By: #### C BC, GFR, ANEU, CMP, ADIFF #### [address] [address] Monocytes/100 WBC (Bld) 8.8 % Normal 2.0-13.0 [facility] ([place]) Comment on above: Performed By: #### C BC, GFR, ANEU, CMP, ADIFF #### [address] [address] Neutrophils/100 WBC (Bld) 76.5 % High 50.0-75.0 [facility] ([place]) Comment on above: Performed By: #### C BC, GFR, ANEU, CMP, ADIFF #### [address] [address] .GFRon 02-02-2022 GFR >60 Normal [facility] ([place]) Comment on above: Result Comment: GFR Population mean for , Non- Americans Ages 20-29 = 116 mL/min/1.73 sq.m. Ages 30-39 = 107 mL/min/1.73 sq.m. Ages 40-49 = 99 mL/min/1.73 sq.m. Ages 50-59 = 93 mL/min/1.73 sq.m. Ages 60-69 = 85 mL/min/1.73 sq.m. Ages 70+ = 75 mL/min/1.73 sq.m. Chronic Kidney Disease: Less than 60 mL/min/1.73 square meters End Stage Renal Disease: Less than 15 mL/min/1.73 square meters Performed By: #### C BC, GFR, ANEU, CMP, ADIFF #### [address] [address] GFR Non- >60 Normal [facility] ([place]) Comment on above: Result Comment: GFR Population mean for , Non- Americans Ages 20-29 = 116 mL/min/1.73 sq.m. Ages 30-39 = 107 mL/min/1.73 sq.m. Ages 40-49 = 99 mL/min/1.73 sq.m. Ages 50-59 = 93 mL/min/1.73 sq.m. Ages 60-69 = 85 mL/min/1.73 sq.m. Ages 70+ = 75 mL/min/1.73 sq.m. Chronic Kidney Disease: Less than 60 mL/min/1.73 square meters End Stage Renal Disease: Less than 15 mL/min/1.73 square meters Performed By: #### C BC, GFR, ANEU, CMP, ADIFF #### [address] [address] .NEUABSon 02-02-2022 Neutrophil, Absolute 6.20 10 3/mcL Normal 2.25-8.10 [facility] ([place]) Comment on above: Performed By: #### C BC, GFR, ANEU, CMP, ADIFF #### [address] [address] BMPon 02-02-2022 BUN/Creatinine Ratio 20.2 ratio Normal 10.0-22.0 [facility] ([place]) Comment on above: Performed By: #### C BC, GFR, ANEU, CMP, ADIFF #### [address] [address] Calcium [Mass/Vol] 8.8 mg/dL Normal 8.7-10.4 [facility] ([place]) Comment on above: Performed By: #### C BC, GFR, ANEU, CMP, ADIFF #### [address] [address] Chloride [Moles/Vol] 104 mmol/L Normal 98-110 [facility] ([place]) Comment on above: Performed By: #### C BC, GFR, ANEU, CMP, ADIFF #### [address] [address] CO2 [Moles/Vol] 27 mmol/L Normal 22-32 [facility] ([place]) Comment on above: Performed By: #### C BC, GFR, ANEU, CMP, ADIFF #### [address] [address] Creatinine [Mass/Vol] 0.94 mg/dL Normal 0.60-1.40 [facility] ([place]) Comment on above: Performed By: #### C BC, GFR, ANEU, CMP, ADIFF #### [address] [address] Electrolyte Balance 4.0 mEq/L Normal 4.0-15.0 [facility] ([place]) Comment on above: Performed By: #### C BC, GFR, ANEU, CMP, ADIFF #### [address] [address] Glucose [Mass/Vol] 114 mg/dL High 70-110 [facility] ([place]) Comment on above: Performed By: #### C BC, GFR, ANEU, CMP, ADIFF #### [address] [address] Potassium [Moles/Vol] 3.9 mmol/L Normal 3.5-5.0 [facility] ([place]) Comment on above: Performed By: #### C BC, GFR, ANEU, CMP, ADIFF #### [address] [address] Sodium [Moles/Vol] 135 mmol/L Low 136-145 [facility] ([place] Comment on above: Performed By: #### C BC, GFR, ANEU, CMP, ADIFF #### [place] [address] Urea nitrogen [Mass/Vol] 19.0 mg/dL Normal 8.0-22.0 [facility] ([place]) Comment on above: Performed By: #### C BC, GFR, ANEU, CMP, ADIFF #### [address] [address] CBCon 02-02-2022 Erythrocyte distribution width (RBC) [Ratio] 13.2 % Normal 11.5-15.5 [facility] ([place] Comment on above: Performed By: #### C BC, GFR, ANEU, CMP, ADIFF #### [place] [address] Hematocrit (Bld) [Volume fraction] 34.0 % Low 40.0-52.0 [facility] ([place]) Comment on above: Performed By: #### C BC, GFR, ANEU, CMP, ADIFF #### [place] [address] Hgb 11.5 G/dL Low 13.0-17.5 [facility] ([place]) Comment on above: Performed By: #### C BC, GFR, ANEU, CMP, ADIFF #### [place] [address] MCH (RBC) [Entitic mass] 30.7 pg Normal 27.0-33.0 [facility] ([place]) Comment on above: Performed By: #### C BC, GFR, ANEU, CMP, ADIFF #### [place] [address] MCHC 34.0 G/dL Normal 32.0-36.0 [facility] ([place] Comment on above: Performed By: #### C BC, GFR, ANEU, CMP, ADIFF #### [place] [address] MCV (RBC) [Entitic vol] 90.4 fL Normal 81.0-100.0 [facility] ([place]) Comment on above: Performed By: #### C BC, GFR, ANEU, CMP, ADIFF #### [place] [address] Platelet 173 10 3/mcL Normal 150-450 [facility] ([place] Comment on above: Performed By: #### C BC, GFR, ANEU, CMP, ADIFF #### [place] [address] Platelet mean volume (Bld) [Entitic vol] 7.6 fL Normal 6.4-10.5 [facility] ([place] Comment on above: Performed By: #### C BC, GFR, ANEU, CMP, ADIFF #### [place] [address] RBC 3.76 10 6/mcL Low 4.50-6.00 [facility] ([place] Comment on above: Performed By: #### C BC, GFR, ANEU, CMP, ADIFF #### [place] [address] WBC 8.10 10 3/mcL Normal 4.50-10.80 [facility] ([place] Comment on above: Performed By: #### C BC, GFR, ANEU, CMP, ADIFF #### [place] [address] Deni 02-02-2022 Potassium [Moles/Vol] 4.2 mmol/L Normal 3.5-5.0 [facility] ([place] Comment on above: Performed By: #### C BC, GFR, ANEU, CMP, ADIFF #### [place] [address] LABORATORYOrdered By: SYSTEM SYSTEM on 02-02-2022 Magnesium [Mass/Vol] 1.9 mg/dL Invalid Interpretation Code 1.6 - 2.4 mg/dL AH ADM SS Basophils (Bld) [#/Vol] 0.00 103/mcL Invalid Interpretation Code 0.00 - 0.27 10^3/mcL AH Remisol SS Basophils/100 WBC (Bld) 0.6 % Invalid Interpretation Code 0.0 - 2.5 % AH Remisol SS Eosinophils (Bld) [#/Vol] 0.20 103/mcL Invalid Interpretation Code 0.00 - 0.65 10^3/mcL AH Remisol SS Eosinophils/100 WBC (Bld) 2.0 % Invalid Interpretation Code 0.0 - 6.0 % AH Remisol SS Erythrocyte distribution width (RBC) [Ratio] 13.2 % Invalid Interpretation Code 11.5 - 15.5 % AH Remisol SS Hematocrit (Bld) [Volume fraction] 34.0 % Invalid Interpretation Code 40.0 - 52.0 % AH Remisol SS Hemoglobin (Bld) [Mass/Vol] 11.5 G/dL Invalid Interpretation Code 13.0 - 17.5 G/dL AH Remisol SS Lymphocytes (Bld) [#/Vol] 1.00 103/mcL Invalid Interpretation Code 0.90 - 4.32 10^3/mcL AH Remisol SS Lymphocytes/100 WBC (Bld) 12.1 % Invalid Interpretation Code 20.0 - 40.0 % AH Remisol SS MCH (RBC) [Entitic mass] 30.7 pg Invalid Interpretation Code 27.0 - 33.0 pg AH Remisol SS MCHC (RBC) [Mass/Vol] 34.0 G/dL Invalid Interpretation Code 32.0 - 36.0 G/dL AH Remisol SS MCV (RBC) [Entitic vol] 90.4 fL Invalid Interpretation Code 81.0 - 100.0 fL AH Remisol SS Monocytes (Bld) [#/Vol] 0.70 103/mcL Invalid Interpretation Code 0.09 - 1.40 10^3/mcL AH Remisol SS Monocytes/100 WBC (Bld) 8.8 % Invalid Interpretation Code 2.0 - 13.0 % AH Remisol SS Neutrophils (Bld) [#/Vol] 6.20 103/mcL Invalid Interpretation Code 2.25 - 8.10 10^3/mcL AH Remisol SS Neutrophils/100 WBC (Bld) 76.5 % Invalid Interpretation Code 50.0 - 75.0 % AH Remisol SS Platelet mean volume (Bld) [Entitic vol] 7.6 fL Invalid Interpretation Code 6.4 - 10.5 fL AH Remisol SS Platelets (Bld) [#/Vol] 173 103/mcL Invalid Interpretation Code 150 - 450 10^3/mcL AH Remisol SS RBC (Bld) [#/Vol] 3.76 106/mcL Invalid Interpretation Code 4.50 - 6.00 10^6/mcL AH Remisol SS WBC (Bld) [#/Vol] 8.10 103/mcL Invalid Interpretation Code 4.50 - 10.80 10^3/mcL Remisol SS XR CHEST 1 VIEWon 02-02-2022 XR CHEST 1 VIEW ORIGINAL EXAMINATION: ONE XRAY VIEW OF THE CHEST 02/02/2022 5:17 am COMPARISON: None. HISTORY: ORDERING SYSTEM PROVIDED HISTORY: Reason for Exam: Abnormal lung sounds IMPRESSION: Sternotomy wires are present in the chest wall. Chest tube suspected at the left lung base. Left subclavian central venous catheter tube tip terminates in the SVC. Small bilateral effusions. No definite pneumothorax. Interpreted by: Joey Salazar MD Preliminary Report By: Joey Salazar MD Electronically signed By Joey Salazar MD Dictated Date: 02/02/2022 8:13:07 AM Prelim Date: 02/02/2022 8:15:36 AM Sign Date: 02/02/2022 8:15:36 AM Ordering Provider: JENNY Gibson [facility] ([place]) .Auto Diffon 02-01-2022 Basophil, Absolute 0.00 10 3/mcL Normal 0.00-0.27 [facility] Comment on above: Performed By: #### C BC, GFR, ANEU, CMP, ADIFF #### [address] [address] Basophils/100 WBC (Bld) 0.3 % Normal 0.0-2.5 [facility] ([place] Comment on above: Performed By: #### C BC, GFR, ANEU, CMP, ADIFF #### [address] [address] Eosinophil, Absolute 0.00 10 3/mcL Normal 0.00-0.65 [facility] ([place]) Comment on above: Performed By: #### C BC, GFR, ANEU, CMP, ADIFF #### [address] [address] Eosinophils/100 WBC (Bld) 0.5 % Normal 0.0-6.0 [facility] ([place] Comment on above: Performed By: #### C BC, GFR, ANEU, CMP, ADIFF #### [address] [address] Lymphocyte, Absolute 0.50 10 3/mcL Low 0.90-4.32 A [facility] ([place]) Comment on above: Performed By: #### C BC, GFR, ANEU, CMP, ADIFF #### [address] [address] Lymphocytes/100 WBC (Bld) 5.2 % Low 20.0-40.0 [facility] ([place]) Comment on above: Performed By: #### C BC, GFR, ANEU, CMP, ADIFF #### [address] [address] Monocyte, Absolute 0.50 10 3/mcL Normal 0.09-1.40 [facility] ([place] Comment on above: Performed By: #### C BC, GFR, ANEU, CMP, ADIFF #### [address] [address] Monocytes/100 WBC (Bld) 5.1 % Normal 2.0-13.0 [facility] ([place]) Comment on above: Performed By: #### C BC, GFR, ANEU, CMP, ADIFF #### [address] [address] Neutrophils/100 WBC (Bld) 88.9 % High 50.0-75.0 [facility] ([place]) Comment on above: Performed By: #### C BC, GFR, ANEU, CMP, ADIFF #### [address] [address] .GFRon 02-01-2022 GFR >60 Normal [facility] ([place]) Comment on above: Result Comment: GFR Population mean for , Non- Americans Ages 20-29 = 116 mL/min/1.73 sq.m. Ages 30-39 = 107 mL/min/1.73 sq.m. Ages 40-49 = 99 mL/min/1.73 sq.m. Ages 50-59 = 93 mL/min/1.73 sq.m. Ages 60-69 = 85 mL/min/1.73 sq.m. Ages 70+ = 75 mL/min/1.73 sq.m. Chronic Kidney Disease: Less than 60 mL/min/1.73 square meters End Stage Renal Disease: Less than 15 mL/min/1.73 square meters Performed By: #### C BC, GFR, ANEU, CMP, ADIFF #### [address] [address] GFR Non- >60 Normal [facility] ([place]) Comment on above: Result Comment: GFR Population mean for , Non- Americans Ages 20-29 = 116 mL/min/1.73 sq.m. Ages 30-39 = 107 mL/min/1.73 sq.m. Ages 40-49 = 99 mL/min/1.73 sq.m. Ages 50-59 = 93 mL/min/1.73 sq.m. Ages 60-69 = 85 mL/min/1.73 sq.m. Ages 70+ = 75 mL/min/1.73 sq.m. Chronic Kidney Disease: Less than 60 mL/min/1.73 square meters End Stage Renal Disease: Less than 15 mL/min/1.73 square meters Performed By: #### C BC, GFR, ANEU, CMP, ADIFF #### [place] [address] .NEUABSon 02-01-2022 Neutrophil, Absolute 8.90 10 3/mcL High 2.25-8.10 [facility] ([place]) Comment on above: Performed By: #### C BC, GFR, ANEU, CMP, ADIFF #### [place] [address] BGon 02-01-2022 Barometric Pressure 710 mmHg Normal [facility] ([place]) Comment on above: Performed By: #### C BC, GFR, ANEU, CMP, ADIFF #### [address] [address] Base excess Calc (Bld) [Moles/Vol] -1.2000 mmol/L Normal [facility] ([place]) Comment on above: Performed By: #### C BC, GFR, ANEU, CMP, ADIFF #### [address] [address] CO2 [Moles/Vol] 24.5 mmol/L Normal 22.0-30.0 [facility] ([place]) Comment on above: Performed By: #### C BC, GFR, ANEU, CMP, ADIFF #### [address] [address] HCO3 (Bld) [Moles/Vol] 23.3 mmol/L Normal 21.0-29.0 [facility] ([place]) Comment on above: Performed By: #### C BC, GFR, ANEU, CMP, ADIFF #### [place] [phone] Oxygen (Bld) [Partial pressure] 73.0 mm[Hg] Low 74.0-108.0 [facility] ([place]) Comment on above: Performed By: #### C BC, GFR, ANEU, CMP, ADIFF #### [place] [phone] Oxygen saturation in Blood 93.7 % Normal 92.0-96.0 [facility] ([place]) Comment on above: Performed By: #### C BC, GFR, ANEU, CMP, ADIFF #### [place] [phone] pCO2 38.1 mmHg Normal 32.0-46.0 [facility] ([place]) Comment on above: Performed By: #### C BC, GFR, ANEU, CMP, ADIFF #### [address] [address] pH (Bld) 7.404 [pH] Normal 7.380-7.460 [facility] ([place]) Comment on above: Performed By: #### C BC, GFR, ANEU, CMP, ADIFF #### [place] [phone] Barometric Pressure 707 mmHg Normal [facility] ([place]) Comment on above: Performed By: #### C BC, GFR, ANEU, CMP, ADIFF #### [place] [phone] Base excess Calc (Bld) [Moles/Vol] -1.7000 mmol/L Normal [facility] ([place]) Comment on above: Performed By: #### C BC, GFR, ANEU, CMP, ADIFF #### [address] [address] CO2 [Moles/Vol] 23.7 mmol/L Normal 22.0-30.0 [facility] ([place]) Comment on above: Performed By: #### C BC, GFR, ANEU, CMP, ADIFF #### [place] [phone] HCO3 (Bld) [Moles/Vol] 22.6 mmol/L Normal 21.0-29.0 [facility] ([place]) Comment on above: Performed By: #### C BC, GFR, ANEU, CMP, ADIFF #### [place] [phone] Oxygen (Bld) [Partial pressure] 75.5 mm[Hg] Normal 74.0-108.0 [facility] ([place]) Comment on above: Performed By: #### C BC, GFR, ANEU, CMP, ADIFF #### [place] [address] Oxygen saturation in Blood 94.8 % Normal 92.0-96.0 [facility] ([place]) Comment on above: Performed By: #### C BC, GFR, ANEU, CMP, ADIFF #### [place] [phone] pCO2 37.0 mmHg Normal 32.0-46.0 [facility] ([place]) Comment on above: Performed By: #### C BC, GFR, ANEU, CMP, ADIFF #### [place] [phone] pH (Bld) 7.404 [pH] Normal 7.380-7.460 [facility] ([place]) Comment on above: Performed By: #### C BC, GFR, ANEU, CMP, ADIFF #### [place] [phone] CBCon 02-01-2022 Erythrocyte distribution width (RBC) [Ratio] 13.2 % Normal 11.5-15.5 [facility] ([place]) Comment on above: Performed By: #### C BC, GFR, ANEU, CMP, ADIFF #### [place] [phone] Hematocrit (Bld) [Volume fraction] 35.0 % Low 40.0-52.0 [facility] ([place]) Comment on above: Performed By: #### C BC, GFR, ANEU, CMP, ADIFF #### [place] [address] Hgb 12.1 G/dL Low 13.0-17.5 [facility] ([place]) Comment on above: Performed By: #### C BC, GFR, ANEU, CMP, ADIFF #### [place] [address] MCH (RBC) [Entitic mass] 30.7 pg Normal 27.0-33.0 [facility] ([place]) Comment on above: Performed By: #### C BC, GFR, ANEU, CMP, ADIFF #### [place] [address] MCHC 34.6 G/dL Normal 32.0-36.0 [facility] ([place]) Comment on above: Performed By: #### C BC, GFR, ANEU, CMP, ADIFF #### [place] [address] MCV (RBC) [Entitic vol] 88.8 fL Normal 81.0-100.0 [facility] ([place]) Comment on above: Performed By: #### C BC, GFR, ANEU, CMP, ADIFF #### [place] [address] Platelet 180 10 3/mcL Normal 150-450 [facility] ([place]) Comment on above: Performed By: #### C BC, GFR, ANEU, CMP, ADIFF #### [place] [address] Platelet mean volume (Bld) [Entitic vol] 7.8 fL Normal 6.4-10.5 [facility] ([place]) Comment on above: Performed By: #### C BC, GFR, ANEU, CMP, ADIFF #### [place] [address] RBC 3.95 10 6/mcL Low 4.50-6.00 [facility] ([place]) Comment on above: Performed By: #### C BC, GFR, ANEU, CMP, ADIFF #### [address] [address] WBC 10.00 10 3/mcL Normal 4.50-10.80 [facility] ([place]) Comment on above: Performed By: #### C BC, GFR, ANEU, CMP, ADIFF #### [address] [address] CMPon 02-01-2022 Albumin Level 3.7 G/dL Normal 3.2-4.8 [facility] ([place]) Comment on above: Performed By: #### C BC, GFR, ANEU, CMP, ADIFF #### [place] [phone] Albumin/Globulin [Mass ratio] 1.9 {ratio} High 0.9-1.6 [facility] ([place]) Comment on above: Performed By: #### C BC, GFR, ANEU, CMP, ADIFF #### [place] [address] ALP [Catalytic activity/Vol] 44 U/L Normal 38-126 [facility] ([place]) Comment on above: Performed By: #### C BC, GFR, ANEU, CMP, ADIFF #### [place] [phone] ALT [Catalytic activity/Vol] 32 U/L Normal 12-55 [facility] ([place]) Comment on above: Performed By: #### C BC, GFR, ANEU, CMP, ADIFF #### [place] [phone] AST [Catalytic activity/Vol] 29 U/L Normal 8-34 [facility] ([place]) Comment on above: Performed By: #### C BC, GFR, ANEU, CMP, ADIFF #### [place] [phone] Bili Total 1.00 mg/dL Normal 0.20-1.20 [facility] ([place]) Comment on above: Result Comment: Use of this assay is not recommended for patients undergoing treatment with eltrombopag due to the potential for falsely elevated results. Performed By: #### C BC, GFR, ANEU, CMP, ADIFF #### [address] [address] BUN/Creatinine Ratio 17.1 ratio Normal 10.0-22.0 [facility] ([place]) Comment on above: Performed By: #### C BC, GFR, ANEU, CMP, ADIFF #### [address] [address] Calcium [Mass/Vol] 8.3 mg/dL Low 8.7-10.4 [facility] ([place]) Comment on above: Performed By: #### C BC, GFR, ANEU, CMP, ADIFF #### [address] [address] Chloride [Moles/Vol] 110 mmol/L Normal 98-110 [facility] ([place]) Comment on above: Performed By: #### C BC, GFR, ANEU, CMP, ADIFF #### [place] [phone] CO2 [Moles/Vol] 24 mmol/L Normal 22-32 [facility] ([place]) Comment on above: Performed By: #### C BC, GFR, ANEU, CMP, ADIFF #### [place] [phone] Creatinine [Mass/Vol] 0.82 mg/dL Normal 0.60-1.40 [facility] ([place]) Comment on above: Performed By: #### C BC, GFR, ANEU, CMP, ADIFF #### [place] [phone] Electrolyte Balance 5.0 mEq/L Normal 4.0-15.0 [facility] ([place]) Comment on above: Performed By: #### C BC, GFR, ANEU, CMP, ADIFF #### [address] [address] Globulin 1.9 G/dL Normal 1.5-3.8 [facility] ([place]) Comment on above: Performed By: #### C BC, GFR, ANEU, CMP, ADIFF #### [place] [phone] Glucose [Mass/Vol] 101 mg/dL Normal 70-110 [facility] ([place]) Comment on above: Performed By: #### C BC, GFR, ANEU, CMP, ADIFF #### [address] [address] Potassium [Moles/Vol] 3.8 mmol/L Normal 3.5-5.0 [facility] ([place]) Comment on above: Performed By: #### C BC, GFR, ANEU, CMP, ADIFF #### [address] [address] Sodium [Moles/Vol] 139 mmol/L Normal 136-145 [facility] ([place]) Comment on above: Performed By: #### C BC, GFR, ANEU, CMP, ADIFF #### [address] [address] Total Protein 5.6 G/dL Low 5.7-8.2 [facility] ([place]) Comment on above: Result Comment: No te - New Reference Range in effect 20 Performed By: #### C BC, GFR, ANEU, CMP, ADIFF #### [address] [address] Urea nitrogen [Mass/Vol] 14.0 mg/dL Normal 8.0-22.0 [facility] ([place]) Comment on above: Performed By: #### C BC, GFR, ANEU, CMP, ADIFF #### [address] [address] Deni 02-01-2022 Potassium [Moles/Vol] 4.1 mmol/L Normal 3.5-5.0 [facility] ([place]) Comment on above: Performed By: #### C BC, GFR, ANEU, CMP, ADIFF #### [address] [address] Potassium [Moles/Vol] 4.0 mmol/L Normal 3.5-5.0 [facility] ([place]) Comment on above: Performed By: #### C BC, GFR, ANEU, CMP, ADIFF #### [address] [address] Potassium [Moles/Vol] 3.7 mmol/L Normal 3.5-5.0 [facility] ([place]) Comment on above: Performed By: #### C BC, GFR, ANEU, CMP, ADIFF #### [place] [address] LABORATORYOrdered By: SYSTEM SYSTEM on 02-01-2022 Albumin BCP dye [Mass/Vol] 3.7 G/dL Invalid Interpretation Code 3.2 - 4.8 G/dL ADM SS Albumin/Globulin [Mass ratio] 1.9 {ratio} Invalid Interpretation Code 0.9 - 1.6 ratio ADM SS ALP [Catalytic activity/Vol] 44 U/L Invalid Interpretation Code 38 - 126 U/L ADM SS ALT No additional P-5'-P [Catalytic activity/Vol] 32 U/L Invalid Interpretation Code 12 - 55 U/L ADM SS AST [Catalytic activity/Vol] 29 U/L Invalid Interpretation Code 8 - 34 U/L ADM SS Bilirubin [Mass/Vol] 1.00 mg/dL Invalid Interpretation Code 0.20 - 1.20 mg/dL ADM SS Globulin 1.9 G/dL Invalid Interpretation Code 1.5 - 3.8 G/dL ADM SS Protein [Mass/Vol] 5.6 G/dL Invalid Interpretation Code 5.7 - 8.2 G/dL ADM SS LABORATORYOrdered By: Isaura Sarkar on 02-01-2022 Barometric Pressure 710 mm[Hg] Invalid Interpretation Code Auto Chem SS Base excess Calc (Bld) [Moles/Vol] -1.2000 mmol/L Invalid Interpretation Code Auto Chem SS CO2 (Bld) [Partial pressure] 38.1 mm[Hg] Invalid Interpretation Code 32.0 - 46.0 mm Hg AH Auto Chem SS CO2 [Moles/Vol] 24.5 mmol/L Invalid Interpretation Code 22.0 - 30.0 mmol/L AH Auto Chem SS HCO3 (Bld) [Moles/Vol] 23.3 mmol/L Invalid Interpretation Code 21.0 - 29.0 mmol/L AH Auto Chem SS Oxygen (Bld) [Partial pressure] 73.0 mm[Hg] Invalid Interpretation Code 74.0 - 108.0 mm Hg AH Auto Chem SS pH (Bld) 7.404 [pH] Invalid Interpretation Code 7.380 - 7.460 Auto Chem SS XR CHEST 1 VIEWon 02-01-2022 XR CHEST 1 VIEW ORIGINAL EXAMINATION: ONE XRAY VIEW OF THE CHEST 02/01/2022 6:31 am COMPARISON: 01/31/2022. HISTORY: ORDERING SYSTEM PROVIDED HISTORY: Reason for Exam: abnormal breath sounds FINDINGS: Median sternotomy wires are intact. Mild bibasilar airspace disease. No large pleural effusion. No pneumothorax. Left subclavian central line terminates at the level of proximal SVC. Left chest tube remains in place. Endotracheal and enteric tubes have been removed. IMPRESSION: Mild bibasilar airspace disease post extubation. I have personally reviewed the images of this examination and agree with the resident's findings and interpretation. Interpreted by: Ananya Ye MD Preliminary Report By: Job Paz Electronically signed By Ananya Ye MD Dictated Date: 02/01/2022 7:03:04 AM Prelim Date: 02/01/2022 7:04:41 AM Sign Date: 02/01/2022 7:15:57 AM Ordering Provider: DEVONTE Gibson [facility] ([place]) .Auto Diffon 01-31-2022 Basophil, Absolute 0.00 10 3/mcL Normal 0.00-0.27 [facility] ([place] Comment on above: Performed By: #### C BC, GFR, ANEU, CMP, ADIFF #### [address] [address] Basophils/100 WBC (Bld) 0.3 % Normal 0.0-2.5 [facility] ([place]) Comment on above: Performed By: #### C BC, GFR, ANEU, CMP, ADIFF #### [address] [address] Eosinophil, Absolute 0.10 10 3/mcL Normal 0.00-0.65 A [facility] ([place]) Comment on above: Performed By: #### C BC, GFR, ANEU, CMP, ADIFF #### [address] [address] Eosinophils/100 WBC (Bld) 0.8 % Normal 0.0-6.0 [facility] ([place]) Comment on above: Performed By: #### C BC, GFR, ANEU, CMP, ADIFF #### [address] [address] Lymphocyte, Absolute 1.20 10 3/mcL Normal 0.90-4.32 A [facility] ([place]) Comment on above: Performed By: #### C BC, GFR, ANEU, CMP, ADIFF #### [address] [address] Lymphocytes/100 WBC (Bld) 9.4 % Low 20.0-40.0 [facility] ([place]) Comment on above: Performed By: #### C BC, GFR, ANEU, CMP, ADIFF #### [address] [address] Monocyte, Absolute 0.60 10 3/mcL Normal 0.09-1.40 [facility] [place] Comment on above: Performed By: #### C BC, GFR, ANEU, CMP, ADIFF #### [address] [address] Monocytes/100 WBC (Bld) 4.9 % Normal 2.0-13.0 [facility] ([place]) Comment on above: Performed By: #### C BC, GFR, ANEU, CMP, ADIFF #### [address] [address] Neutrophils/100 WBC (Bld) 84.6 % High 50.0-75.0 [facility] ([place]) Comment on above: Performed By: #### C BC, GFR, ANEU, CMP, ADIFF #### [address] [address] .GFRon 01-31-2022 GFR >60 Normal [facility] ([place]) Comment on above: Result Comment: GFR Population mean for , Non- Americans Ages 20-29 = 116 mL/min/1.73 sq.m. Ages 30-39 = 107 mL/min/1.73 sq.m. Ages 40-49 = 99 mL/min/1.73 sq.m. Ages 50-59 = 93 mL/min/1.73 sq.m. Ages 60-69 = 85 mL/min/1.73 sq.m. Ages 70+ = 75 mL/min/1.73 sq.m. Chronic Kidney Disease: Less than 60 mL/min/1.73 square meters End Stage Renal Disease: Less than 15 mL/min/1.73 square meters Performed By: #### C BC, GFR, ANEU, CMP, ADIFF #### [address] [address] GFR Non- >60 Normal [facility] ([place]) Comment on above: Result Comment: GFR Population mean for , Non- Americans Ages 20-29 = 116 mL/min/1.73 sq.m. Ages 30-39 = 107 mL/min/1.73 sq.m. Ages 40-49 = 99 mL/min/1.73 sq.m. Ages 50-59 = 93 mL/min/1.73 sq.m. Ages 60-69 = 85 mL/min/1.73 sq.m. Ages 70+ = 75 mL/min/1.73 sq.m. Chronic Kidney Disease: Less than 60 mL/min/1.73 square meters End Stage Renal Disease: Less than 15 mL/min/1.73 square meters Performed By: #### C BC, GFR, ANEU, CMP, ADIFF #### [address] [address] .NEUABSon 01-31-2022 Neutrophil, Absolute 11.10 10 3/mcL High 2.25-8.10 [facility] ([place]) Comment on above: Performed By: #### C BC, GFR, ANEU, CMP, ADIFF #### [address] [address] APTTon 01-31-2022 aPTT Coag (Bld) [Time] 29.9 s Normal 25.0-35.0 [facility] ([place]) Comment on above: Result Comment: For Heparin anticoagulation therapy, the recommended therapeutic range is: 54-77 seconds (APTT Correlation with Anti-Xa therapeutic range of 0.3-0.7 units/ml). PLEASE REFERENCE THE PHARMACY PROTOCOL FOR DOSING. Performed By: #### C BC, GFR, ANEU, CMP, ADIFF #### [address] [address] Heparin dose (APTT) Unknown Normal [facility] ([place]) Comment on above: Performed By: #### C BC, GFR, ANEU, CMP, ADIFF #### [address] [address] BGon 01-31-2022 Barometric Pressure 737 mmHg Normal [facility] ([place]) Comment on above: Performed By: #### C BC, GFR, ANEU, CMP, ADIFF #### [place] [phone] Base excess Calc (Bld) [Moles/Vol] -2.6000 mmol/L Normal [facility] ([place]) Comment on above: Performed By: #### C BC, GFR, ANEU, CMP, ADIFF #### [place] [phone] CO2 [Moles/Vol] 22.5 mmol/L Normal 22.0-30.0 [facility] ([place]) Comment on above: Performed By: #### C BC, GFR, ANEU, CMP, ADIFF #### [place] [address] HCO3 (Bld) [Moles/Vol] 21.4 mmol/L Normal 21.0-29.0 [facility] ([place]) Comment on above: Performed By: #### C BC, GFR, ANEU, CMP, ADIFF #### [place] [phone] Oxygen (Bld) [Partial pressure] 104.4 mm[Hg] Normal 74.0-108.0 [facility] ([place]) Comment on above: Performed By: #### C BC, GFR, ANEU, CMP, ADIFF #### [place] [phone] Oxygen saturation in Blood 97.8 % High 92.0-96.0 [facility] ([place]) Comment on above: Performed By: #### C BC, GFR, ANEU, CMP, ADIFF #### [place] [phone] pCO2 35.2 mmHg Normal 32.0-46.0 [facility] ([place]) Comment on above: Performed By: #### C BC, GFR, ANEU, CMP, ADIFF #### [address] [address] pH (Bld) 7.402 [pH] Normal 7.380-7.460 [facility] ([place]) Comment on above: Performed By: #### C BC, GFR, ANEU, CMP, ADIFF #### [address] [address] Barometric Pressure 707 mmHg Normal [facility] ([place]) Comment on above: Performed By: #### C BC, GFR, ANEU, CMP, ADIFF #### [address] [address] Base excess Calc (Bld) [Moles/Vol] 0.1 mmol/L Normal [facility] ([place]) Comment on above: Performed By: #### C BC, GFR, ANEU, CMP, ADIFF #### [address] [address] CO2 [Moles/Vol] 25.8 mmol/L Normal 22.0-30.0 [facility] ([place]) Comment on above: Performed By: #### C BC, GFR, ANEU, CMP, ADIFF #### [place] [phone] HCO3 (Bld) [Moles/Vol] 24.6 mmol/L Normal 21.0-29.0 [facility] ([place]) Comment on above: Performed By: #### C BC, GFR, ANEU, CMP, ADIFF #### [place] [phone] Oxygen (Bld) [Partial pressure] 111.4 mm[Hg] High 74.0-108.0 [facility] ([place]) Comment on above: Performed By: #### C BC, GFR, ANEU, CMP, ADIFF #### [address] [address] Oxygen saturation in Blood 98.1 % High 92.0-96.0 [facility] ([place]) Comment on above: Performed By: #### C BC, GFR, ANEU, CMP, ADIFF #### [address] [address] pCO2 39.6 mmHg Normal 32.0-46.0 [facility] ([place]) Comment on above: Performed By: #### C BC, GFR, ANEU, CMP, ADIFF #### [address] [address] pH (Bld) 7.411 [pH] Normal 7.380-7.460 [facility] ([place]) Comment on above: Performed By: #### C BC, GFR, ANEU, CMP, ADIFF #### [place] [phone] Barometric Pressure 707 mmHg Normal [facility] ([place]) Comment on above: Performed By: #### C BC, GFR, ANEU, CMP, ADIFF #### [address] [address] Base excess Calc (Bld) [Moles/Vol] 0.0 mmol/L Normal [facility] ([place]) Comment on above: Performed By: #### C BC, GFR, ANEU, CMP, ADIFF #### [place] [phone] CO2 [Moles/Vol] 26.3 mmol/L Normal 22.0-30.0 [facility] ([place]) Comment on above: Performed By: #### C BC, GFR, ANEU, CMP, ADIFF #### [address] [address] HCO3 (Bld) [Moles/Vol] 25.0 mmol/L Normal 21.0-29.0 [facility] ([place]) Comment on above: Performed By: #### C BC, GFR, ANEU, CMP, ADIFF #### [address] [address] Oxygen (Bld) [Partial pressure] 83.9 mm[Hg] Normal 74.0-108.0 [facility] ([place]) Comment on above: Performed By: #### C BC, GFR, ANEU, CMP, ADIFF #### [address] [address] Oxygen saturation in Blood 95.8 % Normal 92.0-96.0 [facility] ([place]) Comment on above: Performed By: #### C BC, GFR, ANEU, CMP, ADIFF #### [address] [address] pCO2 42.2 mmHg Normal 32.0-46.0 [facility] ([place]) Comment on above: Performed By: #### C BC, GFR, ANEU, CMP, ADIFF #### [address] [address] pH (Bld) 7.391 [pH] Normal 7.380-7.460 [facility] ([place]) Comment on above: Performed By: #### C BC, GFR, ANEU, CMP, ADIFF #### [address] [address] Barometric Pressure 707 mmHg Normal [facility] ([place]) Comment on above: Performed By: #### C BC, GFR, ANEU, CMP, ADIFF #### [address] [address] Base excess Calc (Bld) [Moles/Vol] -0.9000 mmol/L Normal [facility] ([place]) Comment on above: Performed By: #### C BC, GFR, ANEU, CMP, ADIFF #### [address] [address] CO2 [Moles/Vol] 26.4 mmol/L Normal 22.0-30.0 [facility] ([place]) Comment on above: Performed By: #### C BC, GFR, ANEU, CMP, ADIFF #### [address] [address] HCO3 (Bld) [Moles/Vol] 25.0 mmol/L Normal 21.0-29.0 [facility] ([place]) Comment on above: Performed By: #### C BC, GFR, ANEU, CMP, ADIFF #### [address] [address] Oxygen (Bld) [Partial pressure] 99.9 mm[Hg] Normal 74.0-108.0 [facility] ([place]) Comment on above: Performed By: #### C BC, GFR, ANEU, CMP, ADIFF #### [address] [address] Oxygen saturation in Blood 97.1 % High 92.0-96.0 [facility] ([place]) Comment on above: Performed By: #### C BC, GFR, ANEU, CMP, ADIFF #### [address] [address] pCO2 46.6 mmHg High 32.0-46.0 [facility] ([place]) Comment on above: Performed By: #### C BC, GFR, ANEU, CMP, ADIFF #### [address] [address] pH (Bld) 7.347 [pH] Low 7.380-7.460 [facility] ([place]) Comment on above: Performed By: #### C BC, GFR, ANEU, CMP, ADIFF #### [address] [address] Barometric Pressure 710 mmHg Normal [facility] ([place]) Comment on above: Performed By: #### C BC, GFR, ANEU, CMP, ADIFF #### [address] [address] Base excess Calc (Bld) [Moles/Vol] -1.4000 mmol/L Normal [facility] ([place]) Comment on above: Performed By: #### C BC, GFR, ANEU, CMP, ADIFF #### [address] [address] CO2 [Moles/Vol] 25.5 mmol/L Normal 22.0-30.0 [facility] ([place]) Comment on above: Performed By: #### C BC, GFR, ANEU, CMP, ADIFF #### [address] [address] HCO3 (Bld) [Moles/Vol] 24.1 mmol/L Normal 21.0-29.0 [facility] ([place]) Comment on above: Performed By: #### C BC, GFR, ANEU, CMP, ADIFF #### [address] [address] Oxygen (Bld) [Partial pressure] 164.2 mm[Hg] High 74.0-108.0 [facility] ([place]) Comment on above: Performed By: #### C BC, GFR, ANEU, CMP, ADIFF #### [address] [address] Oxygen saturation in Blood 98.7 % High 92.0-96.0 [facility] ([place]) Comment on above: Performed By: #### C BC, GFR, ANEU, CMP, ADIFF #### [address] [address] pCO2 43.8 mmHg Normal 32.0-46.0 [facility] ([place]) Comment on above: Performed By: #### C BC, GFR, ANEU, CMP, ADIFF #### [address] [address] pH (Bld) 7.359 [pH] Low 7.380-7.460 [facility] ([place]) Comment on above: Performed By: #### C BC, GFR, ANEU, CMP, ADIFF #### [address] [address] Barometric Pressure 708 mmHg Normal [facility] ([place]) Comment on above: Performed By: #### G FR, MG, BMP, CBC, ADIFF, ANEU #### [address] [address] Base excess Calc (Bld) [Moles/Vol] -1.7000 mmol/L Normal [facility] ([place]) Comment on above: Performed By: #### G FR, MG, BMP, CBC, ADIFF, ANEU #### [address] [address] CO2 [Moles/Vol] 25.8 mmol/L Normal 22.0-30.0 [facility] ([place]) Comment on above: Performed By: #### G FR, MG, BMP, CBC, ADIFF, ANEU #### [address] [address] HCO3 (Bld) [Moles/Vol] 24.4 mmol/L Normal 21.0-29.0 [facility] ([place]) Comment on above: Performed By: #### G FR, MG, BMP, CBC, ADIFF, ANEU #### [place] [phone] Oxygen (Bld) [Partial pressure] 155.0 mm[Hg] High 74.0-108.0 [facility] ([place] Comment on above: Performed By: #### G FR, MG, BMP, CBC, ADIFF, ANEU #### [place] [phone] Oxygen saturation in Blood 98.9 % High 92.0-96.0 [facility] ([place]) Comment on above: Performed By: #### G FR, MG, BMP, CBC, ADIFF, ANEU #### [place] [id number] pCO2 46.4 mmHg High 32.0-46.0 [facility] ([place]) Comment on above: Performed By: #### G FR, MG, BMP, CBC, ADIFF, ANEU #### [place] [id number] pH (Bld) 7.338 [pH] Low 7.380-7.460 [facility] ([place]) Comment on above: Performed By: #### G FR, MG, BMP, CBC, ADIFF, ANEU #### [place] [id number] BGRPon 01-31-2022 Base Excess - POC -2.9 mmol/L Normal [facility] ([place]) Comment on above: Performed By: #### C BC, GFR, ANEU, CMP, ADIFF #### [place] [phone] CO2 [Moles/Vol] 23.8 mmol/L Normal 22.0-30.0 [facility] ([place]) Comment on above: Performed By: #### C BC, GFR, ANEU, CMP, ADIFF #### [place] [phone] HCO3 (Bld) [Moles/Vol] 22.5 mmol/L Normal 21.0-29.0 [facility] ([place]) Comment on above: Performed By: #### C BC, GFR, ANEU, CMP, ADIFF #### [address] [address] Oxygen saturation in Blood 97.5 % High 92.0-96.0 [facility] ([place]) Comment on above: Performed By: #### C BC, GFR, ANEU, CMP, ADIFF #### [address] [address] PCO2 - POC 41.2 mmHg Normal 32.0-46.0 [facility] ([place]) Comment on above: Performed By: #### C BC, GFR, ANEU, CMP, ADIFF #### [address] [address] pH (poct) - POC 7.355 Low 7.380-7.460 [facility] ([place]) Comment on above: Performed By: #### C BC, GFR, ANEU, CMP, ADIFF #### [address] [address] PO2 - POC 102.9 mmHg Normal 74.0-108.0 [facility] ([place]) Comment on above: Performed By: #### C BC, GFR, ANEU, CMP, ADIFF #### [address] [address] PO2 - POC 410.3 mmHg High 74.0-108.0 [facility] ([place]) Comment on above: Performed By: #### C BC, GFR, ANEU, CMP, ADIFF #### [address] [address] Base Excess - POC -0.4 mmol/L Normal [facility] ([place]) Comment on above: Performed By: #### C BC, GFR, ANEU, CMP, ADIFF #### [address] [address] CO2 [Moles/Vol] 25.3 mmol/L Normal 22.0-30.0 [facility] ([place]) Comment on above: Performed By: #### C BC, GFR, ANEU, CMP, ADIFF #### [address] [address] HCO3 (Bld) [Moles/Vol] 24.1 mmol/L Normal 21.0-29.0 [facility] ([place]) Comment on above: Performed By: #### C BC, GFR, ANEU, CMP, ADIFF #### [address] [address] Oxygen saturation in Blood 99.7 % High 92.0-96.0 [facility] ([place]) Comment on above: Performed By: #### C BC, GFR, ANEU, CMP, ADIFF #### [address] [address] PCO2 - POC 38.8 mmHg Normal 32.0-46.0 [facility] ([place] Comment on above: Performed By: #### C BC, GFR, ANEU, CMP, ADIFF #### [address] [address] pH (poct) - POC 7.411 Normal 7.380-7.460 [facility] ([place]) Comment on above: Performed By: #### C BC, GFR, ANEU, CMP, ADIFF #### [place] [phone] Base Excess - POC -3.2 mmol/L Normal [facility] ([place]) Comment on above: Performed By: #### G FR, MG, BMP, CBC, ADIFF, ANEU #### [address] [address] CO2 [Moles/Vol] 24.7 mmol/L Normal 22.0-30.0 [facility] ([place]) Comment on above: Performed By: #### G FR, MG, BMP, CBC, ADIFF, ANEU #### [address] [address] HCO3 (Bld) [Moles/Vol] 23.3 mmol/L Normal 21.0-29.0 [facility] ([place]) Comment on above: Performed By: #### G FR, MG, BMP, CBC, ADIFF, ANEU #### [address] [address] Oxygen saturation in Blood 99.7 % High 92.0-96.0 [facility] ([place]) Comment on above: Performed By: #### G FR, MG, BMP, CBC, ADIFF, ANEU #### [place] [phone] PCO2 - POC 47.6 mmHg High 32.0-46.0 [facility] ([place]) Comment on above: Performed By: #### G FR, MG, BMP, CBC, ADIFF, ANEU #### [place] [address] pH (poct) - POC 7.307 Low 7.380-7.460 [facility] ([place]) Comment on above: Performed By: #### G FR, MG, BMP, CBC, ADIFF, ANEU #### [place] [address] PO2 - POC 448.4 mmHg High 74.0-108.0 [facility] ([place]) Comment on above: Performed By: #### G FR, MG, BMP, CBC, ADIFF, ANEU #### [place] [phone] Base Excess - POC -3.7 mmol/L Normal [facility] ([place]) Comment on above: Performed By: #### C BC, GFR, ANEU, CMP, ADIFF #### [place] [phone] CO2 [Moles/Vol] 24.5 mmol/L Normal 22.0-30.0 [facility] ([place]) Comment on above: Performed By: #### C BC, GFR, ANEU, CMP, ADIFF #### [place] [phone] HCO3 (Bld) [Moles/Vol] 23.0 mmol/L Normal 21.0-29.0 [facility] ([place]) Comment on above: Performed By: #### C BC, GFR, ANEU, CMP, ADIFF #### [place] [phone] Oxygen saturation in Blood 99.3 % High 92.0-96.0 [facility] ([place]) Comment on above: Performed By: #### C BC, GFR, ANEU, CMP, ADIFF #### [place] [phone] PCO2 - POC 47.8 mmHg High 32.0-46.0 [facility] ([place]) Comment on above: Performed By: #### C BC, GFR, ANEU, CMP, ADIFF #### [place] [phone] pH (poct) - POC 7.300 Low 7.380-7.460 [facility] ([place]) Comment on above: Performed By: #### C BC, GFR, ANEU, CMP, ADIFF #### [place] [phone] PO2 - POC 209.6 mmHg High 74.0-108.0 [facility] ([place]) Comment on above: Performed By: #### C BC, GFR, ANEU, CMP, ADIFF #### [place] [phone] Base Excess - POC -5.0 mmol/L Normal [facility] ([place]) Comment on above: Performed By: #### G FR, MG, BMP, CBC, ADIFF, ANEU #### [place] [phone] CO2 [Moles/Vol] 22.5 mmol/L Normal 22.0-30.0 [facility] ([place]) Comment on above: Performed By: #### G FR, MG, BMP, CBC, ADIFF, ANEU #### [place] [phone] HCO3 (Bld) [Moles/Vol] 21.2 mmol/L Normal 21.0-29.0 [facility] ([place]) Comment on above: Performed By: #### G FR, MG, BMP, CBC, ADIFF, ANEU #### [place] [phone] Oxygen saturation in Blood 99.4 % High 92.0-96.0 [facility] ([place]) Comment on above: Performed By: #### G FR, MG, BMP, CBC, ADIFF, ANEU #### [place] [phone] PCO2 - POC 43.1 mmHg Normal 32.0-46.0 [facility] ([place]) Comment on above: Performed By: #### G FR, MG, BMP, CBC, ADIFF, ANEU #### [address] [address] pH (poct) - POC 7.309 Low 7.380-7.460 [facility] ([place]) Comment on above: Performed By: #### G FR, MG, BMP, CBC, ADIFF, ANEU #### [address] [address] PO2 - POC 230.6 mmHg High 74.0-108.0 [facility] ([place]) Comment on above: Performed By: #### G FR, MG, BMP, CBC, ADIFF, ANEU #### [place] [phone] BMPon 01-31-2022 BUN/Creatinine Ratio 16.7 ratio Normal 10.0-22.0 [facility] ([place]) Comment on above: Performed By: #### C BC, GFR, ANEU, CMP, ADIFF #### [place] [phone] Calcium [Mass/Vol] 7.9 mg/dL Low 8.7-10.4 [facility] ([place]) Comment on above: Performed By: #### C BC, GFR, ANEU, CMP, ADIFF #### [place] [phone] Chloride [Moles/Vol] 108 mmol/L Normal 98-110 [facility] ([place]) Comment on above: Performed By: #### C BC, GFR, ANEU, CMP, ADIFF #### [address] [address] CO2 [Moles/Vol] 24 mmol/L Normal 22-32 [facility] ([place]) Comment on above: Performed By: #### C BC, GFR, ANEU, CMP, ADIFF #### [place] [phone] Creatinine [Mass/Vol] 1.02 mg/dL Normal 0.60-1.40 [facility] ([place]) Comment on above: Performed By: #### C BC, GFR, ANEU, CMP, ADIFF #### [address] [address] Electrolyte Balance 6.0 mEq/L Normal 4.0-15.0 [facility] ([place]) Comment on above: Performed By: #### C BC, GFR, ANEU, CMP, ADIFF #### [place] [phone] Glucose [Mass/Vol] 156 mg/dL High 70-110 [facility] ([place]) Comment on above: Performed By: #### C BC, GFR, ANEU, CMP, ADIFF #### [place] [address] Potassium [Moles/Vol] 4.6 mmol/L Normal 3.5-5.0 [facility] ([place]) Comment on above: Performed By: #### C BC, GFR, ANEU, CMP, ADIFF #### [place] [address] Sodium [Moles/Vol] 138 mmol/L Normal 136-145 [facility] ([place]) Comment on above: Performed By: #### C BC, GFR, ANEU, CMP, ADIFF #### [place] [address] Urea nitrogen [Mass/Vol] 17.0 mg/dL Normal 8.0-22.0 [facility] ([place]) Comment on above: Performed By: #### C BC, GFR, ANEU, CMP, ADIFF #### [place] [address] CAIONon 01-31-2022 Calcium Ionized 1.11 mmol/L Low 1.12-1.32 [facility] ([place]) Comment on above: Performed By: #### C BC, GFR, ANEU, CMP, ADIFF #### [address] [address] CARPon 01-31-2022 Ionized Calcium - POC 1.23 mmol/L Normal 1.12-1.32 [facility] ([place]) Comment on above: Performed By: #### C BC, GFR, ANEU, CMP, ADIFF #### [place] [address] Ionized Calcium - POC 1.02 mmol/L Low 1.12-1.32 [facility] ([place]) Comment on above: Performed By: #### C BC, GFR, ANEU, CMP, ADIFF #### [place] [address] Ionized Calcium - POC 1.03 mmol/L Low 1.12-1.32 [facility] ([place]) Comment on above: Performed By: #### G FR, MG, BMP, CBC, ADIFF, ANEU #### [place] [address] Ionized Calcium - POC 1.11 mmol/L Low 1.12-1.32 [facility] ([place]) Comment on above: Performed By: #### C BC, GFR, ANEU, CMP, ADIFF #### [place] [address] Ionized Calcium - POC 1.17 mmol/L Normal 1.12-1.32 [facility] ([place]) Comment on above: Performed By: #### G FR, MG, BMP, CBC, ADIFF, ANEU #### [place] [address] CBCon 01-31-2022 Erythrocyte distribution width (RBC) [Ratio] 13.4 % Normal 11.5-15.5 [facility] ([place]) Comment on above: Performed By: #### C BC, GFR, ANEU, CMP, ADIFF #### [place] [address] Hematocrit (Bld) [Volume fraction] 34.6 % Low 40.0-52.0 [facility] ([place]) Comment on above: Performed By: #### C BC, GFR, ANEU, CMP, ADIFF #### [place] [address] Hgb 11.8 G/dL Low 13.0-17.5 [facility] ([place]) Comment on above: Performed By: #### C BC, GFR, ANEU, CMP, ADIFF #### [place] [address] MCH (RBC) [Entitic mass] 30.4 pg Normal 27.0-33.0 [facility] ([place]) Comment on above: Performed By: #### C BC, GFR, ANEU, CMP, ADIFF #### [place] [address] MCHC 34.0 G/dL Normal 32.0-36.0 [facility] ([place]) Comment on above: Performed By: #### C BC, GFR, ANEU, CMP, ADIFF #### [place] [address] MCV (RBC) [Entitic vol] 89.4 fL Normal 81.0-100.0 [facility] ([place]) Comment on above: Performed By: #### C BC, GFR, ANEU, CMP, ADIFF #### [place] [address] Platelet 191 10 3/mcL Normal 150-450 [facility] ([place]) Comment on above: Performed By: #### C BC, GFR, ANEU, CMP, ADIFF #### [place] [address] Platelet mean volume (Bld) [Entitic vol] 7.6 fL Normal 6.4-10.5 [facility] ([place]) Comment on above: Performed By: #### C BC, GFR, ANEU, CMP, ADIFF #### [place] [address] RBC 3.87 10 6/mcL Low 4.50-6.00 [facility] ([place]) Comment on above: Performed By: #### C BC, GFR, ANEU, CMP, ADIFF #### [place] [address] WBC 13.10 10 3/mcL High 4.50-10.80 [facility] ([place]) Comment on above: Performed By: #### C BC, GFR, ANEU, CMP, ADIFF #### [place] [address] CLRPon 01-31-2022 Chloride [Moles/Vol] 102 mmol/L Normal 98-110 [facility] ([place]) Comment on above: Performed By: #### C BC, GFR, ANEU, CMP, ADIFF #### [address] [address] Chloride [Moles/Vol] 102 mmol/L Normal 98-110 [facility] ([place]) Comment on above: Performed By: #### C BC, GFR, ANEU, CMP, ADIFF #### [address] [address] Chloride [Moles/Vol] 101 mmol/L Normal 98-110 [facility] ([place]) Comment on above: Performed By: #### G FR, MG, BMP, CBC, ADIFF, ANEU #### [address] [address] Chloride [Moles/Vol] 103 mmol/L Normal 98-110 [facility] ([place]) Comment on above: Performed By: #### C BC, GFR, ANEU, CMP, ADIFF #### [address] [address] Chloride [Moles/Vol] 103 mmol/L Normal 98-110 [facility] ([place]) Comment on above: Performed By: #### G FR, MG, BMP, CBC, ADIFF, ANEU #### [address] [address] FIBon 01-31-2022 Fibrinogen 346 mg/dL Normal 250-560 [facility] ([place]) Comment on above: Performed By: #### C BC, GFR, ANEU, CMP, ADIFF #### [address] [address] GLURPon 01-31-2022 Glucose [Mass/Vol] 191 mg/dL High 70-110 [facility] ([place]) Comment on above: Performed By: #### C BC, GFR, ANEU, CMP, ADIFF #### [address] [address] Glucose [Mass/Vol] 199 mg/dL High 70-110 [facility] ([place]) Comment on above: Performed By: #### C BC, GFR, ANEU, CMP, ADIFF #### [address] [address] Glucose [Mass/Vol] 187 mg/dL High 70-110 [facility] ([place]) Comment on above: Performed By: #### G FR, MG, BMP, CBC, ADIFF, ANEU #### [address] [address] Glucose [Mass/Vol] 193 mg/dL High 70-110 [facility] ([place]) Comment on above: Performed By: #### C BC, GFR, ANEU, CMP, ADIFF #### [address] [address] Glucose [Mass/Vol] 148 mg/dL High 70-110 [facility] ([place]) Comment on above: Performed By: #### G FR, MG, BMP, CBC, ADIFF, ANEU #### [address] [address] HCTRPon 01-31-2022 Hematocrit (Bld) [Volume fraction] 37.0 % Low 42.0-52.0 [facility] ([place]) Comment on above: Performed By: #### C BC, GFR, ANEU, CMP, ADIFF #### [place] [phone] Hematocrit (Bld) [Volume fraction] 36.0 % Low 42.0-52.0 [facility] ([place]) Comment on above: Performed By: #### C BC, GFR, ANEU, CMP, ADIFF #### [address] [address] Hematocrit (Bld) [Volume fraction] 35.0 % Low 42.0-52.0 [facility] ([place]) Comment on above: Performed By: #### G FR, MG, BMP, CBC, ADIFF, ANEU #### [address] [address] Hematocrit (Bld) [Volume fraction] 42.0 % Normal 42.0-52.0 [facility] ([place]) Comment on above: Performed By: #### C BC, GFR, ANEU, CMP, ADIFF #### [address] [address] Hematocrit (Bld) [Volume fraction] 45.0 % Normal 42.0-52.0 [facility] ([place]) Comment on above: Performed By: #### G FR, MG, BMP, CBC, ADIFF, ANEU #### [place] [phone] HGBRPon 01-31-2022 Hemoglobin (POC) 12.5 G/dL Low 13.0-17.5 [facility] ([place]) Comment on above: Performed By: #### C BC, GFR, ANEU, CMP, ADIFF #### [place] [address] Hemoglobin (POC) 12.1 G/dL Low 13.0-17.5 [facility] ([place]) Comment on above: Performed By: #### C BC, GFR, ANEU, CMP, ADIFF #### [place] [address] Hemoglobin (POC) 12.0 G/dL Low 13.0-17.5 [facility] ([place]) Comment on above: Performed By: #### G FR, MG, BMP, CBC, ADIFF, ANEU #### [place] [address] Hemoglobin (POC) 14.4 G/dL Normal 13.0-17.5 [facility] ([place]) Comment on above: Performed By: #### C BC, GFR, ANEU, CMP, ADIFF #### [place] [address] Hemoglobin (POC) 15.4 G/dL Normal 13.0-17.5 [facility] ([place]) Comment on above: Performed By: #### G FR, MG, BMP, CBC, ADIFF, ANEU #### [place] [phone] Deni 01-31-2022 Potassium [Moles/Vol] 4.1 mmol/L Normal 3.5-5.0 [facility] ([place]) Comment on above: Performed By: #### C BC, GFR, ANEU, CMP, ADIFF #### [place] [address] Potassium [Moles/Vol] 3.9 mmol/L Normal 3.5-5.0 [facility] ([place]) Comment on above: Performed By: #### C BC, GFR, ANEU, CMP, ADIFF #### [address] [address] KRPon 01-31-2022 Potassium [Moles/Vol] 4.9 mmol/L Normal 3.5-5.0 [facility] ([place]) Comment on above: Performed By: #### C BC, GFR, ANEU, CMP, ADIFF #### [place] [phone] Potassium [Moles/Vol] 5.3 mmol/L High 3.5-5.0 [facility] ([place]) Comment on above: Performed By: #### C BC, GFR, ANEU, CMP, ADIFF #### [place] [phone] Potassium [Moles/Vol] 5.2 mmol/L High 3.5-5.0 [facility] ([place]) Comment on above: Performed By: #### G FR, MG, BMP, CBC, ADIFF, ANEU #### [place] [address] Potassium [Moles/Vol] 4.5 mmol/L Normal 3.5-5.0 [facility] ([place]) Comment on above: Performed By: #### C BC, GFR, ANEU, CMP, ADIFF #### [place] [phone] Potassium [Moles/Vol] 4.0 mmol/L Normal 3.5-5.0 [facility] ([place]) Comment on above: Performed By: #### G FR, MG, BMP, CBC, ADIFF, ANEU #### [address] [address] LABORATORYOrdered By: Layne Holm on 01-31-2022 Barometric Pressure 707 mm[Hg] Invalid Interpretation Code AH Auto Chem SS Base excess Calc (Bld) [Moles/Vol] -1.7000 mmol/L Invalid Interpretation Code AH Auto Chem SS CO2 (Bld) [Partial pressure] 37.0 mm[Hg] Invalid Interpretation Code 32.0 - 46.0 mm Hg AH Auto Chem SS CO2 [Moles/Vol] 23.7 mmol/L Invalid Interpretation Code 22.0 - 30.0 mmol/L Auto Chem SS HCO3 (Bld) [Moles/Vol] 22.6 mmol/L Invalid Interpretation Code 21.0 - 29.0 mmol/L AH Auto Chem SS Oxygen (Bld) [Partial pressure] 75.5 mm[Hg] Invalid Interpretation Code 74.0 - 108.0 mm Hg AH Auto Chem SS pH (Bld) 7.404 [pH] Invalid Interpretation Code 7.380 - 7.460 Auto Chem SS LABORATORYOrdered By: Isaura Sarkar on 01-31-2022 Barometric Pressure 737 mm[Hg] Invalid Interpretation Code Auto Chem SS Base excess Calc (Bld) [Moles/Vol] -2.6000 mmol/L Invalid Interpretation Code Auto Chem SS CO2 (Bld) [Partial pressure] 35.2 mm[Hg] Invalid Interpretation Code 32.0 - 46.0 mm Hg AH Auto Chem SS CO2 [Moles/Vol] 22.5 mmol/L Invalid Interpretation Code 22.0 - 30.0 mmol/L Auto Chem SS HCO3 (Bld) [Moles/Vol] 21.4 mmol/L Invalid Interpretation Code 21.0 - 29.0 mmol/L Auto Chem SS Oxygen (Bld) [Partial pressure] 104.4 mm[Hg] Invalid Interpretation Code 74.0 - 108.0 mm Hg AH Auto Chem SS pH (Bld) 7.402 [pH] Invalid Interpretation Code 7.380 - 7.460 Auto Chem SS LABORATORYOrdered By: Tracy Shay on 01-31-2022 aPTT Coag (PPP) [Time] 29.9 s Invalid Interpretation Code 25.0 - 35.0 seconds Auto Coag SS Fibrinogen Coag (PPP) [Mass/Vol] 346 mg/dL Invalid Interpretation Code 250 - 560 mg/dL Auto Coag SS Heparin dose (APTT) Unknown (01/31/22 4:18 PM) Invalid Interpretation Code Auto Coag SS INR Coag (PPP) [Relative time] 1.2 {INR} Invalid Interpretation Code Auto Coag SS PT Coag (PPP) [Time] 14.7 s Invalid Interpretation Code 9.0 - 14.9 seconds Auto Coag SS LABORATORYOrdered By: Eils Ivey on 01-31-2022 Calcium.ionized (Bld) [Mass/Vol] 1.11 mmol/L Invalid Interpretation Code 1.12 - 1.32 mmol/L Auto Chem SS LABORATORYOrdered By: SYSTEM SYSTEM on 01-31-2022 Magnesium [Mass/Vol] 2.8 mg/dL Invalid Interpretation Code 1.6 - 2.4 mg/dL ADM SS Phosphate [Mass/Vol] 3.7 mg/dL Invalid Interpretation Code 2.4 - 5.1 mg/dL ADM SS Base excess Calc (Bld) [Moles/Vol] -2.9000 mmol/L Invalid Interpretation Code Rapid Comm SS Calcium.ionized (Bld) [Mass/Vol] 1.23 mmol/L Invalid Interpretation Code 1.12 - 1.32 mmol/L Rapid Comm SS Chloride [Moles/Vol] 102 mmol/L Invalid Interpretation Code 98 - 110 mEq/L Rapid Comm SS CO2 (Bld) [Partial pressure] 41.2 mm[Hg] Invalid Interpretation Code 32.0 - 46.0 mm Hg Rapid Comm SS CO2 [Moles/Vol] 23.8 mmol/L Invalid Interpretation Code 22.0 - 30.0 mmol/L Rapid Comm SS Glucose [Mass/Vol] 191 mg/dL Invalid Interpretation Code 70 - 110 mg/dL Rapid Comm SS HCO3 (Bld) [Moles/Vol] 22.5 mmol/L Invalid Interpretation Code 21.0 - 29.0 mmol/L Rapid [facility] SS Hematocrit (Bld) [Volume fraction] 37.0 % Invalid Interpretation Code 42.0 - 52.0 % Rapid Comm SS Hemoglobin (Bld) [Mass/Vol] 12.5 G/dL Invalid Interpretation Code 13.0 - 17.5 G/dL Rapid Comm SS Oxygen (Bld) [Partial pressure] 102.9 mm[Hg] Invalid Interpretation Code 74.0 - 108.0 mm Hg Rapid Comm SS pH (Bld) 7.355 [pH] Invalid Interpretation Code 7.380 - 7.460 Rapid [facility] SS Potassium [Moles/Vol] 4.9 mmol/L Invalid Interpretation Code 3.5 - 5.0 mEq/L Rapid Comm SS Sodium [Moles/Vol] 131 mmol/L Invalid Interpretation Code 136 - 145 mEq/L Rapid Comm SS Base excess Calc (Bld) [Moles/Vol] -0.4000 mmol/L Invalid Interpretation Code Rapid Comm SS Calcium.ionized (Bld) [Mass/Vol] 1.02 mmol/L Invalid Interpretation Code 1.12 - 1.32 mmol/L Rapid [facility] SS Chloride [Moles/Vol] 102 mmol/L Invalid Interpretation Code 98 - 110 mEq/L Rapid [facility] SS CO2 (Bld) [Partial pressure] 38.8 mm[Hg] Invalid Interpretation Code 32.0 - 46.0 mm Hg Rapid Comm SS CO2 [Moles/Vol] 25.3 mmol/L Invalid Interpretation Code 22.0 - 30.0 mmol/L Rapid [facility] SS Glucose [Mass/Vol] 199 mg/dL Invalid Interpretation Code 70 - 110 mg/dL Rapid [facility] SS HCO3 (Bld) [Moles/Vol] 24.1 mmol/L Invalid Interpretation Code 21.0 - 29.0 mmol/L Rapid [facility] SS Hematocrit (Bld) [Volume fraction] 36.0 % Invalid Interpretation Code 42.0 - 52.0 % Rapid Comm SS Hemoglobin (Bld) [Mass/Vol] 12.1 G/dL Invalid Interpretation Code 13.0 - 17.5 G/dL Rapid Comm SS Oxygen (Bld) [Partial pressure] 410.3 mm[Hg] Invalid Interpretation Code 74.0 - 108.0 mm Hg Rapid Comm SS pH (Bld) 7.411 [pH] Invalid Interpretation Code 7.380 - 7.460 Rapid [facility] SS Potassium [Moles/Vol] 5.3 mmol/L Invalid Interpretation Code 3.5 - 5.0 mEq/L Rapid [facility] SS Sodium [Moles/Vol] 131 mmol/L Invalid Interpretation Code 136 - 145 mEq/L Rapid [facility] SS Base excess Calc (Bld) [Moles/Vol] -3.2000 mmol/L Invalid Interpretation Code Rapid Comm SS Calcium.ionized (Bld) [Mass/Vol] 1.03 mmol/L Invalid Interpretation Code 1.12 - 1.32 mmol/L Rapid Comm SS Chloride [Moles/Vol] 101 mmol/L Invalid Interpretation Code 98 - 110 mEq/L Rapid [facility] SS CO2 (Bld) [Partial pressure] 47.6 mm[Hg] Invalid Interpretation Code 32.0 - 46.0 mm Hg Rapid Comm SS CO2 [Moles/Vol] 24.7 mmol/L Invalid Interpretation Code 22.0 - 30.0 mmol/L Rapid [facility] SS Glucose [Mass/Vol] 187 mg/dL Invalid Interpretation Code 70 - 110 mg/dL Rapid Comm SS HCO3 (Bld) [Moles/Vol] 23.3 mmol/L Invalid Interpretation Code 21.0 - 29.0 mmol/L Rapid Comm SS Hematocrit (Bld) [Volume fraction] 35.0 % Invalid Interpretation Code 42.0 - 52.0 % Rapid Comm SS Hemoglobin (Bld) [Mass/Vol] 12.0 G/dL Invalid Interpretation Code 13.0 - 17.5 G/dL Rapid Comm SS Oxygen (Bld) [Partial pressure] 448.4 mm[Hg] Invalid Interpretation Code 74.0 - 108.0 mm Hg Rapid Comm SS pH (Bld) 7.307 [pH] Invalid Interpretation Code 7.380 - 7.460 Rapid [facility] SS Potassium [Moles/Vol] 5.2 mmol/L Invalid Interpretation Code 3.5 - 5.0 mEq/L Rapid Comm SS Sodium [Moles/Vol] 130 mmol/L Invalid Interpretation Code 136 - 145 mEq/L Rapid Comm SS LABORATORYOrdered By: Devonte Daniels on 01-31-2022 Platelet Product Ready Platelet Ready for Pickup (01/31/22 5:33 AM) Invalid Interpretation Code BB Manual SS MGon 01-31-2022 Magnesium [Mass/Vol] 2.8 mg/dL High 1.6-2.4 [facility] ([place]) Comment on above: Performed By: #### C BC, GFR, ANEU, CMP, ADIFF #### [address] [address] NARPon 01-31-2022 Sodium [Moles/Vol] 131 mmol/L Low 136-145 [facility] ([place]) Comment on above: Performed By: #### C BC, GFR, ANEU, CMP, ADIFF #### [address] [address] Sodium [Moles/Vol] 131 mmol/L Low 136-145 [facility] ([place]) Comment on above: Performed By: #### C BC, GFR, ANEU, CMP, ADIFF #### [address] [address] Sodium [Moles/Vol] 130 mmol/L Low 136-145 [facility] ([place]) Comment on above: Performed By: #### G FR, MG, BMP, CBC, ADIFF, ANEU #### [place] [address] Sodium [Moles/Vol] 135 mmol/L Low 136-145 [facility] ([place]) Comment on above: Performed By: #### C BC, GFR, ANEU, CMP, ADIFF #### [place] [address] Sodium [Moles/Vol] 140 mmol/L Normal 136-145 [facility] ([place]) Comment on above: Performed By: #### G FR, MG, BMP, CBC, ADIFF, ANEU #### [place] [id number] PHOSon 01-31-2022 Phosphate [Mass/Vol] 3.7 mg/dL Normal 2.4-5.1 [facility] ([place]) Comment on above: Result Comment: No te - New Reference Range in effect 20 Performed By: #### C BC, GFR, ANEU, CMP, ADIFF #### [place] [id number] PROon 01-31-2022 INR Coag (PPP) [Relative time] 1.2 {INR} Normal [facility] ([place]) Comment on above: Result Comment: The [employer] (CHEST, 1991, [id number]) recommended therapeutic range for oral anticoagulant therapy is: LOW RISK: Prophylaxis of venous thrombosis INR: 2.0-3.0 Treatment of pulmonary embolism 2.0-3.0 Prevention of systemic embolism 2.0-3.0 HIGH RISK: Mechanical prosthetic valves 2.5-3.5 Performed By: #### C BC, GFR, ANEU, CMP, ADIFF #### [place] [id number] PT Coag (PPP) [Time] 14.7 s Normal 9.0-14.9 [facility] ([place]) Comment on above: Result Comment: Effe ctive 04/04/08, Protime results may be affected by some antibiotics (i.e. Ciprofloxacin, Azithromycin, Bactrim) which may potentiate the action of oral anticoagulants, with further increases in Protime/INR. Performed By: #### C BC, GFR, ANEU, CMP, ADIFF #### [place] [id number] [address] [place] [id number] Platelet (Product)on Platelet Product Ready Platelet Ready for Pickup [facility]ly [facility] ([place]) Comment on above: Order Comment: ON HO LD FOR CVOR Performed By: #### C BC, GFR, ANEU, CMP, ADIFF #### [facility] [address] [place] [id number] XR CHEST 1 VIEWon 01-31-2022 XR CHEST 1 VIEW ORIGINAL EXAMINATION: ONE XRAY VIEW OF THE CHEST; ONE SUPINE XRAY VIEW(S) OF THE ABDOMEN 01/31/2022 4:36 pm COMPARISON: 01/28/2022 HISTORY: ORDERING SYSTEM PROVIDED HISTORY: Reason for Exam: Endotracheal tube placement Enteric tube placement, shortness of breath, 1 pack per day smoker FINDINGS: LINES/TUBES: Endotracheal tube terminates about 5.6 cm above the moraima. Enteric tube side port projects below the GE junction, tip terminating over the gastric fundus/body region. Left subclavian CVC terminates over the upper SVC region. Mediastinal drain and left lower chest tube are present. Mediastinal contours are accentuated by patient right rotation and portable technique. Recent CABG. Midline cutaneous clips and sternotomy wires are present. Normal heart size. Epicardial pacing leads. Spacing devices project mostly over the right upper quadrant. Streaky bibasilar opacities. Small left pleural effusion. No visible pneumothorax. IMPRESSION: Life support devices as described. Small left pleural effusion. Interpreted by: Stanislav Banerjee Preliminary Report By: Stanislav Banerjee Electronically signed By Stanislav Banerjee Dictated Date: 01/31/2022 4:46:33 PM Prelim Date: 01/31/2022 4:49:55 PM Sign Date: 01/31/2022 4:49:55 PM Ordering Provider: DEVONTE HAWK [facility] ([place]) XR ENTERIC TUBE PLACEMENTon 01-31-2022 XR ENTERIC TUBE PLACEMENT ORIGINAL EXAMINATION: ONE XRAY VIEW OF THE CHEST; ONE SUPINE XRAY VIEW(S) OF THE ABDOMEN 01/31/2022 4:36 pm COMPARISON: 01/28/2022 HISTORY: ORDERING SYSTEM PROVIDED HISTORY: Reason for Exam: Endotracheal tube placement Enteric tube placement, shortness of breath, 1 pack per day smoker FINDINGS: LINES/TUBES: Endotracheal tube terminates about 5.6 cm above the moraima. Enteric tube side port projects below the GE junction, tip terminating over the gastric fundus/body region. Left subclavian CVC terminates over the upper SVC region. Mediastinal drain and left lower chest tube are present. Mediastinal contours are accentuated by patient right rotation and portable technique. Recent CABG. Midline cutaneous clips and sternotomy wires are present. Normal heart size. Epicardial pacing leads. Spacing devices project mostly over the right upper quadrant. Streaky bibasilar opacities. Small left pleural effusion. No visible pneumothorax. IMPRESSION: Life support devices as described. Small left pleural effusion. Interpreted by: Stanislav Banerjee Preliminary Report By: Stanislav Banerjee Electronically signed By Stanislav Banerjee Dictated Date: 01/31/2022 4:46:33 PM Prelim Date: 01/31/2022 4:49:55 PM Sign Date: 01/31/2022 4:49:55 PM Ordering Provider: DEVONTE Gibson [facility] ([place]) .Auto Diffon 01-30-2022 Basophil, Absolute 0.00 10 3/mcL Normal 0.00-0.27 [facility] Comment on above: Performed By: #### G FR, MG, BMP, CBC, ADIFF, ANEU #### [address] [address] Basophils/100 WBC (Bld) 0.6 % Normal 0.0-2.5 [facility] ([place]) Comment on above: Performed By: #### G FR, MG, BMP, CBC, ADIFF, ANEU #### [address] [address] Eosinophil, Absolute 0.20 10 3/mcL Normal 0.00-0.65 [facility] ([place]) Comment on above: Performed By: #### G FR, MG, BMP, CBC, ADIFF, ANEU #### [address] [address] Eosinophils/100 WBC (Bld) 2.4 % Normal 0.0-6.0 [facility] ([place]) Comment on above: Performed By: #### G FR, MG, BMP, CBC, ADIFF, ANEU #### [address] [address] Lymphocyte, Absolute 2.50 10 3/mcL Normal 0.90-4.32 [facility] ([place]) Comment on above: Performed By: #### G FR, MG, BMP, CBC, ADIFF, ANEU #### [address] [address] Lymphocytes/100 WBC (Bld) 29.7 % Normal 20.0-40.0 [facility] ([place]) Comment on above: Performed By: #### G FR, MG, BMP, CBC, ADIFF, ANEU #### [address] [address] Monocyte, Absolute 0.50 10 3/mcL Normal 0.09-1.40 [facility] Comment on above: Performed By: #### G FR, MG, BMP, CBC, ADIFF, ANEU #### [address] [address] Monocytes/100 WBC (Bld) 6.4 % Normal 2.0-13.0 [facility] ([place]) Comment on above: Performed By: #### G FR, MG, BMP, CBC, ADIFF, ANEU #### [address] [address] Neutrophils/100 WBC (Bld) 60.9 % Normal 50.0-75.0 [facility] ([place]) Comment on above: Performed By: #### G FR, MG, BMP, CBC, ADIFF, ANEU #### [address] [address] .GFRon 01-30-2022 GFR >60 Normal [facility] ([place]) Comment on above: Result Comment: GFR Population mean for , Non- Americans Ages 20-29 = 116 mL/min/1.73 sq.m. Ages 30-39 = 107 mL/min/1.73 sq.m. Ages 40-49 = 99 mL/min/1.73 sq.m. Ages 50-59 = 93 mL/min/1.73 sq.m. Ages 60-69 = 85 mL/min/1.73 sq.m. Ages 70+ = 75 mL/min/1.73 sq.m. Chronic Kidney Disease: Less than 60 mL/min/1.73 square meters End Stage Renal Disease: Less than 15 mL/min/1.73 square meters Performed By: #### C BC, GFR, ANEU, CMP, ADIFF #### [address] [address] GFR Non- >60 Normal [facility] ([place]) Comment on above: Result Comment: GFR Population mean for , Non- Americans Ages 20-29 = 116 mL/min/1.73 sq.m. Ages 30-39 = 107 mL/min/1.73 sq.m. Ages 40-49 = 99 mL/min/1.73 sq.m. Ages 50-59 = 93 mL/min/1.73 sq.m. Ages 60-69 = 85 mL/min/1.73 sq.m. Ages 70+ = 75 mL/min/1.73 sq.m. Chronic Kidney Disease: Less than 60 mL/min/1.73 square meters End Stage Renal Disease: Less than 15 mL/min/1.73 square meters Performed By: #### C BC, GFR, ANEU, CMP, ADIFF #### [address] [address] .NEUABSon 01-30-2022 Neutrophil, Absolute 5.10 10 3/mcL Normal 2.25-8.10 [facility] ([place]) Comment on above: Performed By: #### G FR, MG, BMP, CBC, ADIFF, ANEU #### [address] [address] ABO/Rh (Gel)on 01-30-2022 ABO/Rh Interp Negative Invalid Interpretation Code [facility] ([place]) Comment on above: Performed By: #### C BC, GFR, ANEU, CMP, ADIFF #### [address] [address] ABS (Gel)on 01-30-2022 ABSC Interp (Gel) Negative Normal [facility] ([place]) Comment on above: Performed By: #### C BC, GFR, ANEU, CMP, ADIFF #### [address] [address] BMPon 01-30-2022 Chloride [Moles/Vol] 103 mmol/L Normal 98-110 [facility] ([place]) Comment on above: Performed By: #### C BC, GFR, ANEU, CMP, ADIFF #### [address] [address] Electrolyte Balance 5.0 mEq/L Normal 4.0-15.0 [facility] ([place]) Comment on above: Performed By: #### C BC, GFR, ANEU, CMP, ADIFF #### [place] [id number] Potassium [Moles/Vol] 4.0 mmol/L Normal 3.5-5.0 [facility] ([place]) Comment on above: Result Comment: Spec imen slightly hemolyzed. Performed By: #### C BC, GFR, ANEU, CMP, ADIFF #### [place] [address] Sodium [Moles/Vol] 137 mmol/L Normal 136-145 [facility] ([place]) Comment on above: Performed By: #### C BC, GFR, ANEU, CMP, ADIFF #### [place] [address] BUN/Creatinine Ratio 15.5 ratio Normal 10.0-22.0 [facility] ([place]) Comment on above: Performed By: #### C BC, GFR, ANEU, CMP, ADIFF #### [place] [phone] Calcium [Mass/Vol] 9.6 mg/dL Normal 8.7-10.4 [facility] ([place]) Comment on above: Performed By: #### C BC, GFR, ANEU, CMP, ADIFF #### [place] [phone] CO2 [Moles/Vol] 29 mmol/L Normal 22-32 [facility] ([place]) Comment on above: Performed By: #### C BC, GFR, ANEU, CMP, ADIFF #### [address] [address] Creatinine [Mass/Vol] 1.10 mg/dL Normal 0.60-1.40 [facility] ([place]) Comment on above: Performed By: #### C BC, GFR, ANEU, CMP, ADIFF #### [place] [address] Glucose [Mass/Vol] 134 mg/dL High 70-110 [facility] ([place]) Comment on above: Performed By: #### C BC, GFR, ANEU, CMP, ADIFF #### [place] [address] Urea nitrogen [Mass/Vol] 17.0 mg/dL Normal 8.0-22.0 [facility] ([place]) Comment on above: Performed By: #### C BC, GFR, ANEU, CMP, ADIFF #### [place] [address] CBCon 01-30-2022 Erythrocyte distribution width (RBC) [Ratio] 13.6 % Normal 11.5-15.5 [facility] ([place]) Comment on above: Performed By: #### G FR, MG, BMP, CBC, ADIFF, ANEU #### [place] [address] Hematocrit (Bld) [Volume fraction] 45.1 % Normal 40.0-52.0 [facility] ([place]) Comment on above: Performed By: #### G FR, MG, BMP, CBC, ADIFF, ANEU #### [place] [address] Hgb 15.6 G/dL Normal 13.0-17.5 [facility] ([place]) Comment on above: Performed By: #### G FR, MG, BMP, CBC, ADIFF, ANEU #### [place] [address] MCH (RBC) [Entitic mass] 30.9 pg Normal 27.0-33.0 [facility] ([place]) Comment on above: Performed By: #### G FR, MG, BMP, CBC, ADIFF, ANEU #### [place] [phone] MCHC 34.7 G/dL Normal 32.0-36.0 [facility] ([place]) Comment on above: Performed By: #### G FR, MG, BMP, CBC, ADIFF, ANEU #### [place] [address] MCV (RBC) [Entitic vol] 89.2 fL Normal 81.0-100.0 [facility] ([place]) Comment on above: Performed By: #### G FR, MG, BMP, CBC, ADIFF, ANEU #### [place] [address] Platelet 256 10 3/mcL Normal 150-450 [facility] ([place]) Comment on above: Performed By: #### G FR, MG, BMP, CBC, ADIFF, ANEU #### [place] [address] Platelet mean volume (Bld) [Entitic vol] 7.7 fL Normal 6.4-10.5 [facility] ([place]) Comment on above: Performed By: #### G FR, MG, BMP, CBC, ADIFF, ANEU #### [place] [address] RBC 5.06 10 6/mcL Normal 4.50-6.00 [facility] ([place]) Comment on above: Performed By: #### G FR, MG, BMP, CBC, ADIFF, ANEU #### [place] [address] WBC 8.40 10 3/mcL Normal 4.50-10.80 [facility] ([place]) Comment on above: Performed By: #### G FR, MG, BMP, CBC, ADIFF, ANEU #### [place] [address] LIYAH IgGon 01-30-2022 LIYAH IgG Negative Normal [facility] ([place]) Comment on above: Performed By: #### C BC, GFR, ANEU, CMP, ADIFF #### [place] [address] LABORATORYOrdered By: Erika Cool on 01-30-2022 ABO and Rh group Nom (Bld) Blood group A Rh(D) negative Invalid Interpretation Code AH BB Auto SS Blood group antibody screen Ql NEG (01/30/22 2:28 PM) Invalid Interpretation Code AH BB Auto SS Direct antiglobulin test.IgG specific reagent (RBC) [Interp] Negative (01/30/22 2:28 PM) Invalid Interpretation Code AH BB Manual SS RBC Product Ready RBC Ready for Pickup (01/30/22 1:08 PM) Invalid Interpretation Code AH BB Manual SS LABORATORYOrdered By: SYSTEM SYSTEM on 01-30-2022 Magnesium [Mass/Vol] 2.1 mg/dL Invalid Interpretation Code 1.6 - 2.4 mg/dL AH ADM SS MGon 01-30-2022 Magnesium [Mass/Vol] 2.1 mg/dL Normal 1.6-2.4 [facility] ([place]) Comment on above: Performed By: #### G FR, MG, BMP, CBC, ADIFF, ANEU #### [address] [address] RBC (Product)on 01-30-2022 RBC Product Ready RBC Ready for Pickup Normal [facility] ([place]) Comment on above: Performed By: #### C BC, GFR, ANEU, CMP, ADIFF #### [address] [address] .Auto Diffon 01-29-2022 Basophil, Absolute 0.00 10 3/mcL Normal 0.00-0.27 [facility] Comment on above: Performed By: #### G FR, MG, BMP, CBC, ADIFF, ANEU #### [address] [address] Basophils/100 WBC (Bld) 0.5 % Normal 0.0-2.5 [facility] ([place]) Comment on above: Performed By: #### G FR, MG, BMP, CBC, ADIFF, ANEU #### [address] [address] Eosinophil, Absolute 0.20 10 3/mcL Normal 0.00-0.65 [facility] ([place]) Comment on above: Performed By: #### G FR, MG, BMP, CBC, ADIFF, ANEU #### [address] [address] Eosinophils/100 WBC (Bld) 2.6 % Normal 0.0-6.0 [facility] ([place]) Comment on above: Performed By: #### G FR, MG, BMP, CBC, ADIFF, ANEU #### [address] [address] Lymphocyte, Absolute 2.30 10 3/mcL Normal 0.90-4.32 [facility] ([place]) Comment on above: Performed By: #### G FR, MG, BMP, CBC, ADIFF, ANEU #### [address] [address] Lymphocytes/100 WBC (Bld) 27.3 % Normal 20.0-40.0 [facility] ([place]) Comment on above: Performed By: #### G FR, MG, BMP, CBC, ADIFF, ANEU #### [address] [address] Monocyte, Absolute 0.50 10 3/mcL Normal 0.09-1.40 [facility] Comment on above: Performed By: #### G FR, MG, BMP, CBC, ADIFF, ANEU #### [address] [address] Monocytes/100 WBC (Bld) 5.6 % Normal 2.0-13.0 [facility] ([place]) Comment on above: Performed By: #### G FR, MG, BMP, CBC, ADIFF, ANEU #### [address] [address] Neutrophils/100 WBC (Bld) 64.0 % Normal 50.0-75.0 [facility] ([place]) Comment on above: Performed By: #### G FR, MG, BMP, CBC, ADIFF, ANEU #### [address] [address] .GFRon 01-29-2022 GFR Non- >60 Normal [facility] ([place]) Comment on above: Result Comment: GFR Population mean for , Non- Americans Ages 20-29 = 116 mL/min/1.73 sq.m. Ages 30-39 = 107 mL/min/1.73 sq.m. Ages 40-49 = 99 mL/min/1.73 sq.m. Ages 50-59 = 93 mL/min/1.73 sq.m. Ages 60-69 = 85 mL/min/1.73 sq.m. Ages 70+ = 75 mL/min/1.73 sq.m. Chronic Kidney Disease: Less than 60 mL/min/1.73 square meters End Stage Renal Disease: Less than 15 mL/min/1.73 square meters Performed By: #### G FR, MG, BMP, CBC, ADIFF, ANEU #### [address] [address] GFR >60 Normal [facility] ([place]) Comment on above: Result Comment: GFR Population mean for , Non- Americans Ages 20-29 = 116 mL/min/1.73 sq.m. Ages 30-39 = 107 mL/min/1.73 sq.m. Ages 40-49 = 99 mL/min/1.73 sq.m. Ages 50-59 = 93 mL/min/1.73 sq.m. Ages 60-69 = 85 mL/min/1.73 sq.m. Ages 70+ = 75 mL/min/1.73 sq.m. Chronic Kidney Disease: Less than 60 mL/min/1.73 square meters End Stage Renal Disease: Less than 15 mL/min/1.73 square meters Performed By: #### G FR, MG, BMP, CBC, ADIFF, ANEU #### [place] [id number] .NEUABSon 01-29-2022 Neutrophil, Absolute 5.40 10 3/mcL Normal 2.25-8.10 [facility] ([place]) Comment on above: Performed By: #### G FR, MG, BMP, CBC, ADIFF, ANEU #### [address] [address] BMPon 01-29-2022 BUN/Creatinine Ratio 22.5 ratio High 10.0-22.0 [facility] ([place]) Comment on above: Performed By: #### G FR, MG, BMP, CBC, ADIFF, ANEU #### [address] [address] Calcium [Mass/Vol] 9.4 mg/dL Normal 8.7-10.4 [facility] ([place]) Comment on above: Result Comment: No te - New Reference Range in effect 20 Performed By: #### G FR, MG, BMP, CBC, ADIFF, ANEU #### [place] [phone] Chloride [Moles/Vol] 105 mmol/L Normal 98-110 [facility] ([place]) Comment on above: Performed By: #### G FR, MG, BMP, CBC, ADIFF, ANEU #### [address] [address] CO2 [Moles/Vol] 25 mmol/L Normal 22-32 [facility] ([place]) Comment on above: Performed By: #### G FR, MG, BMP, CBC, ADIFF, ANEU #### [place] [phone] Creatinine [Mass/Vol] 0.89 mg/dL Normal 0.60-1.40 [facility] ([place]) Comment on above: Performed By: #### G FR, MG, BMP, CBC, ADIFF, ANEU #### [place] [address] Electrolyte Balance 8.0 mEq/L Normal 4.0-15.0 [facility] ([place]) Comment on above: Performed By: #### G FR, MG, BMP, CBC, ADIFF, ANEU #### [place] [phone] Glucose [Mass/Vol] 158 mg/dL High 70-110 [facility] ([place]) Comment on above: Performed By: #### G FR, MG, BMP, CBC, ADIFF, ANEU #### [place] [phone] Potassium [Moles/Vol] 3.9 mmol/L Normal 3.5-5.0 [facility] ([place]) Comment on above: Performed By: #### G FR, MG, BMP, CBC, ADIFF, ANEU #### [place] [address] Sodium [Moles/Vol] 138 mmol/L Normal 136-145 [facility] ([place]) Comment on above: Performed By: #### G FR, MG, BMP, CBC, ADIFF, ANEU #### [place] [address] Urea nitrogen [Mass/Vol] 20.0 mg/dL Normal 8.0-22.0 [facility] ([place]) Comment on above: Performed By: #### G FR, MG, BMP, CBC, ADIFF, ANEU #### [place] [address] CBCon 01-29-2022 Erythrocyte distribution width (RBC) [Ratio] 13.5 % Normal 11.5-15.5 [facility] ([place]) Comment on above: Performed By: #### G FR, MG, BMP, CBC, ADIFF, ANEU #### [place] [address] Hematocrit (Bld) [Volume fraction] 45.7 % Normal 40.0-52.0 [facility] ([place]) Comment on above: Performed By: #### G FR, MG, BMP, CBC, ADIFF, ANEU #### [place] [address] Hgb 15.7 G/dL Normal 13.0-17.5 [facility] ([place]) Comment on above: Performed By: #### G FR, MG, BMP, CBC, ADIFF, ANEU #### [place] [address] MCH (RBC) [Entitic mass] 30.6 pg Normal 27.0-33.0 [facility] ([place]) Comment on above: Performed By: #### G FR, MG, BMP, CBC, ADIFF, ANEU #### [place] [address] MCHC 34.4 G/dL Normal 32.0-36.0 [facility] ([place]) Comment on above: Performed By: #### G FR, MG, BMP, CBC, ADIFF, ANEU #### [place] [phone] MCV (RBC) [Entitic vol] 89.0 fL Normal 81.0-100.0 [facility] ([place]) Comment on above: Performed By: #### G FR, MG, BMP, CBC, ADIFF, ANEU #### [place] [address] Platelet 264 10 3/mcL Normal 150-450 [facility] ([place]) Comment on above: Performed By: #### G FR, MG, BMP, CBC, ADIFF, ANEU #### [place] [address] Platelet mean volume (Bld) [Entitic vol] 7.8 fL Normal 6.4-10.5 [facility] ([place]) Comment on above: Performed By: #### G FR, MG, BMP, CBC, ADIFF, ANEU #### [place] [address] RBC 5.13 10 6/mcL Normal 4.50-6.00 [facility] ([place]) Comment on above: Performed By: #### G FR, MG, BMP, CBC, ADIFF, ANEU #### [place] [address] WBC 8.50 10 3/mcL Normal 4.50-10.80 [facility] ([place]) Comment on above: Performed By: #### G FR, MG, BMP, CBC, ADIFF, ANEU #### [place] [address] LABORATORYOrdered By: Yamile phipps on 01-29-2022 Cholesterol [Mass/Vol] 214 mg/dL Invalid Interpretation Code 50 - 199 mg/dL ADM SS Cholesterol in HDL [Mass/Vol] 32 mg/dL Invalid Interpretation Code 40 - 59 mg/dL ADM SS Cholesterol in LDL [Mass/Vol] 108 mg/dL Invalid Interpretation Code 0 - 129 mg/dL ADM SS Triglyceride [Mass/Vol] 372 mg/dL Invalid Interpretation Code 3 - 149 mg/dL ADM SS LIPIDon 01-29-2022 Cholesterol [Mass/Vol] 214 mg/dL High 50-199 [facility] ([place]) Comment on above: Result Comment: Chol esterol Reference Interval: Less than 200 Desirable 200-239 Borderline high risk 240 and above High risk Performed By: #### G FR, MG, BMP, CBC, ADIFF, ANEU #### [place] [address] Cholesterol in HDL [Mass/Vol] 32 mg/dL Low 40-59 [facility] ([place]) Comment on above: Performed By: #### G FR, MG, BMP, CBC, ADIFF, ANEU #### [place] [address] Cholesterol in LDL [Mass/Vol] 108 mg/dL Normal 0-129 [facility] ([place]) Comment on above: Performed By: #### G FR, MG, BMP, CBC, ADIFF, ANEU #### [place] [address] Triglyceride [Mass/Vol] 372 mg/dL High 3-149 [facility] ([place]) Comment on above: Performed By: #### G FR, MG, BMP, CBC, ADIFF, ANEU #### [place] [address] MGon 01-29-2022 Magnesium [Mass/Vol] 2.1 mg/dL Normal 1.6-2.4 [facility] ([place]) Comment on above: Performed By: #### G FR, MG, BMP, CBC, ADIFF, ANEU #### [place] [address] .Auto Diffon 01-28-2022 Basophil, Absolute 0.00 10 3/mcL Normal 0.00-0.27 [facility] Comment on above: Performed By: #### C BC, GFR, ANEU, CMP, ADIFF #### [place] [address] Basophils/100 WBC (Bld) 0.5 % Normal 0.0-2.5 [facility] ([place]) Comment on above: Performed By: #### C BC, GFR, ANEU, CMP, ADIFF #### [place] [address] Eosinophil, Absolute 0.20 10 3/mcL Normal 0.00-0.65 [facility] ([place]) Comment on above: Performed By: #### C BC, GFR, ANEU, CMP, ADIFF #### [address] [address] Eosinophils/100 WBC (Bld) 3.0 % Normal 0.0-6.0 [facility] ([place]) Comment on above: Performed By: #### C BC, GFR, ANEU, CMP, ADIFF #### [address] [address] Lymphocyte, Absolute 2.50 10 3/mcL Normal 0.90-4.32 [facility] ([place]) Comment on above: Performed By: #### C BC, GFR, ANEU, CMP, ADIFF #### [address] [address] Lymphocytes/100 WBC (Bld) 30.3 % Normal 20.0-40.0 [facility] ([place] Comment on above: Performed By: #### C BC, GFR, ANEU, CMP, ADIFF #### [address] [address] Monocyte, Absolute 0.40 10 3/mcL Normal 0.09-1.40 [facility] Comment on above: Performed By: #### C BC, GFR, ANEU, CMP, ADIFF #### [address] [address] Monocytes/100 WBC (Bld) 4.8 % Normal 2.0-13.0 [facility] ([place]) Comment on above: Performed By: #### C BC, GFR, ANEU, CMP, ADIFF #### [address] [address] Neutrophils/100 WBC (Bld) 61.4 % Normal 50.0-75.0 [facility] ([place] Comment on above: Performed By: #### C BC, GFR, ANEU, CMP, ADIFF #### [address] [address] .GFRon 01-28-2022 GFR >60 Normal [facility] ([place]) Comment on above: Result Comment: GFR Population mean for , Non- Americans Ages 20-29 = 116 mL/min/1.73 sq.m. Ages 30-39 = 107 mL/min/1.73 sq.m. Ages 40-49 = 99 mL/min/1.73 sq.m. Ages 50-59 = 93 mL/min/1.73 sq.m. Ages 60-69 = 85 mL/min/1.73 sq.m. Ages 70+ = 75 mL/min/1.73 sq.m. Chronic Kidney Disease: Less than 60 mL/min/1.73 square meters End Stage Renal Disease: Less than 15 mL/min/1.73 square meters Performed By: #### G FR, MG, BMP, CBC, ADIFF, ANEU #### [address] [address] GFR Non- >60 Normal [facility] ([place]) Comment on above: Result Comment: GFR Population mean for , Non- Americans Ages 20-29 = 116 mL/min/1.73 sq.m. Ages 30-39 = 107 mL/min/1.73 sq.m. Ages 40-49 = 99 mL/min/1.73 sq.m. Ages 50-59 = 93 mL/min/1.73 sq.m. Ages 60-69 = 85 mL/min/1.73 sq.m. Ages 70+ = 75 mL/min/1.73 sq.m. Chronic Kidney Disease: Less than 60 mL/min/1.73 square meters End Stage Renal Disease: Less than 15 mL/min/1.73 square meters Performed By: #### G FR, MG, BMP, CBC, ADIFF, ANEU #### [address] [address] .NEUABSon 01-28-2022 Neutrophil, Absolute 5.10 10 3/mcL Normal 2.25-8.10 [facility] ([place] Comment on above: Performed By: #### C BC, GFR, ANEU, CMP, ADIFF #### [address] [address] BMPon 01-28-2022 BUN/Creatinine Ratio 19.0 ratio Normal 10.0-22.0 [facility] ([place]) Comment on above: Performed By: #### C BC, GFR, ANEU, CMP, ADIFF #### [address] [address] Calcium [Mass/Vol] 10.0 mg/dL Normal 8.7-10.4 [facility] ([place]) Comment on above: Result Comment: No te - New Reference Range in effect 20 Performed By: #### C BC, GFR, ANEU, CMP, ADIFF #### [address] [address] Chloride [Moles/Vol] 104 mmol/L Normal 98-110 [facility] ([place]) Comment on above: Performed By: #### C BC, GFR, ANEU, CMP, ADIFF #### [address] [address] CO2 [Moles/Vol] 26 mmol/L Normal 22-32 [facility] ([place] Comment on above: Performed By: #### C BC, GFR, ANEU, CMP, ADIFF #### [address] [address] Creatinine [Mass/Vol] 0.84 mg/dL Normal 0.60-1.40 [facility] ([place] Comment on above: Performed By: #### C BC, GFR, ANEU, CMP, ADIFF #### [address] [address] Electrolyte Balance 3.0 mEq/L Low 4.0-15.0 [facility] ([place]) Comment on above: Performed By: #### C BC, GFR, ANEU, CMP, ADIFF #### [address] [address] Glucose [Mass/Vol] 161 mg/dL High 70-110 [facility] ([place] Comment on above: Performed By: #### C BC, GFR, ANEU, CMP, ADIFF #### [address] [address] Potassium [Moles/Vol] 3.9 mmol/L Normal 3.5-5.0 [facility] ([place] Comment on above: Result Comment: Spec imen slightly hemolyzed. Performed By: #### C BC, GFR, ANEU, CMP, ADIFF #### [place] [address] Sodium [Moles/Vol] 133 mmol/L Low 136-145 [facility] ([place] Comment on above: Performed By: #### C BC, GFR, ANEU, CMP, ADIFF #### [place] [address] Urea nitrogen [Mass/Vol] 16.0 mg/dL Normal 8.0-22.0 [facility] ([place] Comment on above: Performed By: #### C BC, GFR, ANEU, CMP, ADIFF #### [place] [id number] CBCon 01-28-2022 Erythrocyte distribution width (RBC) [Ratio] 13.5 % Normal 11.5-15.5 [facility] ([place] Comment on above: Performed By: #### C BC, GFR, ANEU, CMP, ADIFF #### [place] [address] Hematocrit (Bld) [Volume fraction] 44.5 % Normal 40.0-52.0 [facility] ([place]) Comment on above: Performed By: #### C BC, GFR, ANEU, CMP, ADIFF #### [place] [address] Hgb 15.6 G/dL Normal 13.0-17.5 [facility] ([place]) Comment on above: Performed By: #### C BC, GFR, ANEU, CMP, ADIFF #### [place] [address] MCH (RBC) [Entitic mass] 31.2 pg Normal 27.0-33.0 [facility] ([place]) Comment on above: Performed By: #### C BC, GFR, ANEU, CMP, ADIFF #### [place] [address] MCHC 34.9 G/dL Normal 32.0-36.0 [facility] ([place]) Comment on above: Performed By: #### C BC, GFR, ANEU, CMP, ADIFF #### [address] [address] MCV (RBC) [Entitic vol] 89.2 fL Normal 81.0-100.0 [facility] ([place]) Comment on above: Performed By: #### C BC, GFR, ANEU, CMP, ADIFF #### [place] [phone] Platelet 252 10 3/mcL Normal 150-450 [facility] ([place]) Comment on above: Performed By: #### C BC, GFR, ANEU, CMP, ADIFF #### [place] [phone] Platelet mean volume (Bld) [Entitic vol] 8.2 fL Normal 6.4-10.5 [facility] ([place]) Comment on above: Performed By: #### C BC, GFR, ANEU, CMP, ADIFF #### [place] [phone] RBC 4.99 10 6/mcL Normal 4.50-6.00 [facility] ([place]) Comment on above: Performed By: #### C BC, GFR, ANEU, CMP, ADIFF #### [place] [id number] WBC 8.30 10 3/mcL Normal 4.50-10.80 [facility] ([place]) Comment on above: Performed By: #### C BC, GFR, ANEU, CMP, ADIFF #### [place] [phone] MGon 01-28-2022 Magnesium [Mass/Vol] 1.8 mg/dL Normal 1.6-2.4 [facility] ([place]) Comment on above: Performed By: #### C BC, GFR, ANEU, CMP, ADIFF #### [place] [id number] XR CHEST 2 VIEWSon XR CHEST 2 VIEWS ORIGINAL EXAMINATION: TWO XRAY VIEWS OF THE CHEST01/28/2022 7:11 am HISTORY: ORDERING SYSTEM PROVIDED HISTORY: Reason for Exam: Chest pain FINDINGS: No prior studies are available for comparison. The heart is normal in size and configuration. Pulmonary vascular pattern is normal. The lungs are clear and normally aerated. The pleural margins and bony thorax are unremarkable. IMPRESSION: No acute intrathoracic abnormality. Interpreted by: Ananya Ye MD Preliminary Report By: Ananya Ye MD Electronically signed By Ananya Ye MD Dictated Date: 01/28/2022 7:34:45 AM Prelim Date: 01/28/2022 7:36:25 AM Sign Date: 01/28/2022 7:36:25 AM Ordering Provider: JENNY Gibson [facility] ([place]) .Auto Diffon 01-27-2022 Basophil, Absolute 0.10 10 3/mcL Normal 0.00-0.27 [facility] ([place] Comment on above: Performed By: #### G FR, MG, BMP, CBC, ADIFF, ANEU #### [address] [address] Basophils/100 WBC (Bld) 0.7 % Normal 0.0-2.5 [facility] ([place]) Comment on above: Performed By: #### G FR, MG, BMP, CBC, ADIFF, ANEU #### [address] [address] Eosinophil, Absolute 0.20 10 3/mcL Normal 0.00-0.65 [facility] ([place]) Comment on above: Performed By: #### G FR, MG, BMP, CBC, ADIFF, ANEU #### [address] [address] Eosinophils/100 WBC (Bld) 2.4 % Normal 0.0-6.0 [facility] ([place]) Comment on above: Performed By: #### G FR, MG, BMP, CBC, ADIFF, ANEU #### [address] [address] Lymphocyte, Absolute 2.30 10 3/mcL Normal 0.90-4.32 A [facility] ([place]) Comment on above: Performed By: #### G FR, MG, BMP, CBC, ADIFF, ANEU #### [address] [address] Lymphocytes/100 WBC (Bld) 28.1 % Normal 20.0-40.0 [facility] ([place]) Comment on above: Performed By: #### G FR, MG, BMP, CBC, ADIFF, ANEU #### [address] [address] Monocyte, Absolute 0.50 10 3/mcL Normal 0.09-1.40 [facility] ([place] Comment on above: Performed By: #### G FR, MG, BMP, CBC, ADIFF, ANEU #### [address] [address] Monocytes/100 WBC (Bld) 6.2 % Normal 2.0-13.0 [facility] ([place]) Comment on above: Performed By: #### G FR, MG, BMP, CBC, ADIFF, ANEU #### [address] [address] Neutrophils/100 WBC (Bld) 62.6 % Normal 50.0-75.0 [facility] ([place]) Comment on above: Performed By: #### G FR, MG, BMP, CBC, ADIFF, ANEU #### [address] [address] .GFRon 01-27-2022 GFR >60 Normal [facility] ([place]) Comment on above: Result Comment: GFR Population mean for , Non- Americans Ages 20-29 = 116 mL/min/1.73 sq.m. Ages 30-39 = 107 mL/min/1.73 sq.m. Ages 40-49 = 99 mL/min/1.73 sq.m. Ages 50-59 = 93 mL/min/1.73 sq.m. Ages 60-69 = 85 mL/min/1.73 sq.m. Ages 70+ = 75 mL/min/1.73 sq.m. Chronic Kidney Disease: Less than 60 mL/min/1.73 square meters End Stage Renal Disease: Less than 15 mL/min/1.73 square meters Performed By: #### G FR, MG, BMP, CBC, ADIFF, ANEU #### [address] [address] GFR Non- >60 Normal [facility] ([place]) Comment on above: Result Comment: GFR Population mean for , Non- Americans Ages 20-29 = 116 mL/min/1.73 sq.m. Ages 30-39 = 107 mL/min/1.73 sq.m. Ages 40-49 = 99 mL/min/1.73 sq.m. Ages 50-59 = 93 mL/min/1.73 sq.m. Ages 60-69 = 85 mL/min/1.73 sq.m. Ages 70+ = 75 mL/min/1.73 sq.m. Chronic Kidney Disease: Less than 60 mL/min/1.73 square meters End Stage Renal Disease: Less than 15 mL/min/1.73 square meters Performed By: #### G FR, MG, BMP, CBC, ADIFF, ANEU #### [place] [id number] .NEUABSon 01-27-2022 Neutrophil, Absolute 5.10 10 3/mcL Normal 2.25-8.10 [facility] ([place]) Comment on above: Performed By: #### G FR, MG, BMP, CBC, ADIFF, ANEU #### [place] [address] A1Con 01-27-2022 HbA1c (Bld) [Mass fraction] 10.6 % High 4.0-6.0 [facility] ([place]) Comment on above: Performed By: #### C BC, GFR, ANEU, CMP, ADIFF #### [place] [address] APTTon 01-27-2022 aPTT Coag (Bld) [Time] 30.6 s Normal 25.0-35.0 [facility] ([place]) Comment on above: Result Comment: For Heparin anticoagulation therapy, the recommended therapeutic range is: 54-77 seconds (APTT Correlation with Anti-Xa therapeutic range of 0.3-0.7 units/ml). PLEASE REFERENCE THE PHARMACY PROTOCOL FOR DOSING. Performed By: #### C BC, GFR, ANEU, CMP, ADIFF #### [place] [address] Heparin dose (APTT) None Normal [facility] ([place]) Comment on above: Result Comment: Spec imen slightly lipemic; results may be affected. Performed By: #### C BC, GFR, ANEU, CMP, ADIFF #### [address] [address] BGon 01-27-2022 Barometric Pressure 742 mmHg Normal [facility] ([place]) Comment on above: Order Comment: on Ro om Air. Preop Cardiothoracic OR (date) Performed By: #### C BC, GFR, ANEU, CMP, ADIFF #### [address] [address] Base excess Calc (Bld) [Moles/Vol] -0.5000 mmol/L Normal [facility] ([place]) Comment on above: Order Comment: on Ro om Air. Preop Cardiothoracic OR (date) Performed By: #### C BC, GFR, ANEU, CMP, ADIFF #### [address] [address] CO2 [Moles/Vol] 25.3 mmol/L Normal 22.0-30.0 [facility] ([place]) Comment on above: Order Comment: on Ro om Air. Preop Cardiothoracic OR (date) Performed By: #### C BC, GFR, ANEU, CMP, ADIFF #### [place] [phone] HCO3 (Bld) [Moles/Vol] 24.1 mmol/L Normal 21.0-29.0 [facility] ([place]) Comment on above: Order Comment: on Ro om Air. Preop Cardiothoracic OR (date) Performed By: #### C BC, GFR, ANEU, CMP, ADIFF #### [place] [phone] Oxygen (Bld) [Partial pressure] 66.5 mm[Hg] Low 74.0-108.0 [facility] ([place]) Comment on above: Order Comment: on Ro om Air. Preop Cardiothoracic OR (date) Performed By: #### C BC, GFR, ANEU, CMP, ADIFF #### [address] [address] Oxygen saturation in Blood 93.3 % Normal 92.0-96.0 [facility] ([place]) Comment on above: Order Comment: on Ro om Air. Preop Cardiothoracic OR (date) Performed By: #### C BC, GFR, ANEU, CMP, ADIFF #### [address] [address] pCO2 39.5 mmHg Normal 32.0-46.0 [facility] ([place]) Comment on above: Order Comment: on Ro om Air. Preop Cardiothoracic OR (date) Performed By: #### C BC, GFR, ANEU, CMP, ADIFF #### [address] [address] pH (Bld) 7.403 [pH] Normal 7.380-7.460 [facility] ([place]) Comment on above: Order Comment: on Ro om Air. Preop Cardiothoracic OR (date) Performed By: #### C BC, GFR, ANEU, CMP, ADIFF #### [address] [address] BMPon 01-27-2022 BUN/Creatinine Ratio 28.8 ratio High 10.0-22.0 [facility] ([place]) Comment on above: Performed By: #### G FR, MG, BMP, CBC, ADIFF, ANEU #### [address] [address] Calcium [Mass/Vol] 9.8 mg/dL Normal 8.7-10.4 [facility] ([place]) Comment on above: Result Comment: No te - New Reference Range in effect 20 Performed By: #### G FR, MG, BMP, CBC, ADIFF, ANEU #### [address] [address] Chloride [Moles/Vol] 106 mmol/L Normal 98-110 [facility] ([place]) Comment on above: Performed By: #### G FR, MG, BMP, CBC, ADIFF, ANEU #### [address] [address] CO2 [Moles/Vol] 27 mmol/L Normal 22-32 [facility] ([place]) Comment on above: Performed By: #### G FR, MG, BMP, CBC, ADIFF, ANEU #### [address] [address] Creatinine [Mass/Vol] 0.73 mg/dL Normal 0.60-1.40 [facility] ([place]) Comment on above: Performed By: #### G FR, MG, BMP, CBC, ADIFF, ANEU #### [address] [address] Electrolyte Balance 4.0 mEq/L Normal 4.0-15.0 [facility] ([place]) Comment on above: Performed By: #### G FR, MG, BMP, CBC, ADIFF, ANEU #### [place] [phone] Glucose [Mass/Vol] 274 mg/dL High 70-110 [facility] ([place]) Comment on above: Performed By: #### G FR, MG, BMP, CBC, ADIFF, ANEU #### [place] [phone] Potassium [Moles/Vol] 4.2 mmol/L Normal 3.5-5.0 [facility] ([place]) Comment on above: Performed By: #### G FR, MG, BMP, CBC, ADIFF, ANEU #### [place] [address] Sodium [Moles/Vol] 137 mmol/L Normal 136-145 [facility] ([place]) Comment on above: Performed By: #### G FR, MG, BMP, CBC, ADIFF, ANEU #### [place] [phone] Urea nitrogen [Mass/Vol] 21.0 mg/dL Normal 8.0-22.0 [facility] ([place]) Comment on above: Performed By: #### G FR, MG, BMP, CBC, ADIFF, ANEU #### [address] [address] CBCon 01-27-2022 Erythrocyte distribution width (RBC) [Ratio] 13.2 % Normal 11.5-15.5 [facility] ([place]) Comment on above: Performed By: #### G FR, MG, BMP, CBC, ADIFF, ANEU #### [place] [address] Hematocrit (Bld) [Volume fraction] 44.0 % Normal 40.0-52.0 [facility] ([place]) Comment on above: Performed By: #### G FR, MG, BMP, CBC, ADIFF, ANEU #### [place] [address] Hgb 15.2 G/dL Normal 13.0-17.5 [facility] ([place]) Comment on above: Performed By: #### G FR, MG, BMP, CBC, ADIFF, ANEU #### [place] [address] MCH (RBC) [Entitic mass] 30.6 pg Normal 27.0-33.0 [facility] ([place]) Comment on above: Performed By: #### G FR, MG, BMP, CBC, ADIFF, ANEU #### [place] [address] MCHC 34.5 G/dL Normal 32.0-36.0 [facility] ([place]) Comment on above: Performed By: #### G FR, MG, BMP, CBC, ADIFF, ANEU #### [place] [address] MCV (RBC) [Entitic vol] 88.9 fL Normal 81.0-100.0 [facility] ([place]) Comment on above: Performed By: #### G FR, MG, BMP, CBC, ADIFF, ANEU #### [place] [address] Platelet 240 10 3/mcL Normal 150-450 [facility] ([place]) Comment on above: Performed By: #### G FR, MG, BMP, CBC, ADIFF, ANEU #### [place] [address] Platelet mean volume (Bld) [Entitic vol] 7.8 fL Normal 6.4-10.5 [facility] ([place]) Comment on above: Performed By: #### G FR, MG, BMP, CBC, ADIFF, ANEU #### [place] [address] RBC 4.95 10 6/mcL Normal 4.50-6.00 [facility] ([place]) Comment on above: Performed By: #### G FR, MG, BMP, CBC, ADIFF, ANEU #### [place] [address] WBC 8.20 10 3/mcL Normal 4.50-10.80 [facility] ([place]) Comment on above: Performed By: #### G FR, MG, BMP, CBC, ADIFF, ANEU #### [place] [address] CVFLURVon 01-27-2022 Date of Onset [id number] Invalid Interpretation Code [facility] ([place]) Comment on above: Performed By: #### G FR, MG, BMP, CBC, ADIFF, ANEU #### [place] [address] Employed in Healthcare [facility] ([place]) Comment on above: Performed By: #### G FR, MG, BMP, CBC, ADIFF, ANEU #### [place] [address] First Test Unknown [facility] ([place]) Comment on above: Performed By: #### G FR, MG, BMP, CBC, ADIFF, ANEU #### [place] [address] FLU A PCR Negative Normal Negative [facility] ([place]) Comment on above: Result Comment: Note s 1990 Performed By: #### G FR, MG, BMP, CBC, ADIFF, ANEU #### [place] [address] FLU B PCR Negative Normal Negative [facility] ([place]) Comment on above: Result Comment: Note s 1990 Performed By: #### G FR, MG, BMP, CBC, ADIFF, ANEU #### [place] [address] Hospitalized Yes [facility] ([place]) Comment on above: Performed By: #### G FR, MG, BMP, CBC, ADIFF, ANEU #### [place] [address] ICU No [facility] ([place]) Comment on above: Performed By: #### G FR, MG, BMP, CBC, ADIFF, ANEU #### [facility] [address] [place] [address] Not Normal [facility] ([place]) Comment on above: Performed By: #### G FR, MG, BMP, CBC, ADIFF, ANEU #### [place] [address] Resides in Congregate Care Setting No Normal [facility] ([place]) Comment on above: Performed By: #### G FR, MG, BMP, CBC, ADIFF, ANEU #### [place] [address] RSV PCR Negative Normal Negative [facility] ([place]) Comment on above: Result Comment: Note s 1990 Performed By: #### G FR, MG, BMP, CBC, ADIFF, ANEU #### [place] [address] SARS-CoV-2 (COVID-19) RNA KIM+probe Ql (Unsp spec) Negative Normal Negative [facility] ([place]) Comment on above: Result Comment: Note s 1990 This test has been authorized by FDA under an EUA for use by authorized laboratories and has not been FDA cleared or approved. Results from the Xpert Xpress SARS-CoV-2/Flu/RSV or Xpert Xpress SARS-CoV-2 only test should be correlated with the clinical history, epidemiological data, and other data available to the clinician evaluating the patient. Performance of the Xpert Xpress SARS-CoV-2/Flu/RSV or Xpert Xpress SARS-CoV-2 only test has only been established in nasopharyngeal swab specimens. Erroneous test results might occur from improper specimen collection; failure to follow the recommended sample collection, handling, and storage procedures; technical error; or sample mix-up. False negative results may occur if virus is present at levels below the analytical limit of detection. Viral nucleic acid may persist in vivo, independent of virus viability. Detection of analyte target(s) does not imply that the corresponding virus(es) are infectious or are the causative agents for clinical symptoms. Recent patient exposure to FluMist or other live attenuated influenza vaccines may cause inaccurate positive results. Performed By: #### G FR, MG, BMP, CBC, ADIFF, ANEU #### [address] [address] Symptomatic as Defined by CDC No Normal [facility] ([place]) Comment on above: Performed By: #### G FR, MG, BMP, CBC, ADIFF, ANEU #### [address] [address] FIBon 01-27-2022 Fibrinogen 463 mg/dL Normal 250-560 [facility] ([place]) Comment on above: Performed By: #### C BC, GFR, ANEU, CMP, ADIFF #### [place] [phone] HFPon 01-27-2022 Albumin Level 3.6 G/dL Normal 3.2-4.8 [facility] ([place]) Comment on above: Performed By: #### C BC, GFR, ANEU, CMP, ADIFF #### [place] [address] Albumin/Globulin [Mass ratio] 1.2 {ratio} Normal 0.9-1.6 [facility] ([place]) Comment on above: Performed By: #### C BC, GFR, ANEU, CMP, ADIFF #### [place] [address] ALP [Catalytic activity/Vol] 87 U/L Normal 38-126 [facility] ([place]) Comment on above: Performed By: #### C BC, GFR, ANEU, CMP, ADIFF #### [place] [phone] ALT [Catalytic activity/Vol] 42 U/L Normal 12-55 [facility] ([place]) Comment on above: Performed By: #### C BC, GFR, ANEU, CMP, ADIFF #### [place] [phone] AST [Catalytic activity/Vol] 25 U/L Normal 8-34 [facility] ([place]) Comment on above: Performed By: #### C BC, GFR, ANEU, CMP, ADIFF #### [place] [address] Bili Direct <0.1 Normal 0.0-0.4 [facility] ([place]) Comment on above: Result Comment: Use of this assay is not recommended for patients undergoing treatment with eltrombopag due to the potential for falsely elevated results. Performed By: #### C BC, GFR, ANEU, CMP, ADIFF #### [place] [id number] Bili Indirect see comment Normal 0.1-10.0 [facility] ([place]) Comment on above: Result Comment: Unab le to calculate this test result accurately. Results used to calculate this test are outside the reportable range. Performed By: #### C BC, GFR, ANEU, CMP, ADIFF #### [place] [address] Bili Total 0.40 mg/dL Normal 0.20-1.20 [facility] ([place]) Comment on above: Result Comment: Use of this assay is not recommended for patients undergoing treatment with eltrombopag due to the potential for falsely elevated results. Performed By: #### C BC, GFR, ANEU, CMP, ADIFF #### [place] [address] Globulin 3.1 G/dL Normal 1.5-3.8 [facility] ([place]) Comment on above: Performed By: #### C BC, GFR, ANEU, CMP, ADIFF #### [place] [address] Total Protein 6.7 G/dL Normal 5.7-8.2 [facility] ([place]) Comment on above: Result Comment: No te - New Reference Range in effect 20 Performed By: #### C BC, GFR, ANEU, CMP, ADIFF #### [place] [address] LABORATORYOrdered By: Valeria Schulz on 01-27-2022 Albumin BCP dye [Mass/Vol] 3.6 G/dL Invalid Interpretation Code 3.2 - 4.8 G/dL ADM SS Albumin/Globulin [Mass ratio] 1.2 {ratio} Invalid Interpretation Code 0.9 - 1.6 ratio AH ADM SS ALP [Catalytic activity/Vol] 87 U/L Invalid Interpretation Code 38 - 126 U/L AH ADM SS ALT No additional P-5'-P [Catalytic activity/Vol] 42 U/L Invalid Interpretation Code 12 - 55 U/L AH ADM SS AST [Catalytic activity/Vol] 25 U/L Invalid Interpretation Code 8 - 34 U/L AH ADM SS Bili Indirect see comment Invalid Interpretation Code 0.1 - 10.0 Chemistry S Comment on above: Result Comment: Unab le to calculate this test result accurately. Results used to calculate this test are outside the reportable range. Bilirubin [Mass/Vol] 0.40 mg/dL Invalid Interpretation Code 0.20 - 1.20 mg/dL AH ADM SS Bilirubin.conjugated [Mass/Vol] mg/dL Invalid Interpretation Code 0.0 - 0.4 mg/dL AH ADM SS Globulin 3.1 G/dL Invalid Interpretation Code 1.5 - 3.8 G/dL AH ADM SS Protein [Mass/Vol] 6.7 G/dL Invalid Interpretation Code 5.7 - 8.2 G/dL ADM SS LABORATORYOrdered By: Tyrell Junior on 01-27-2022 aPTT Coag (PPP) [Time] 30.6 s Invalid Interpretation Code 25.0 - 35.0 seconds AH Auto Coag SS Fibrinogen Coag (PPP) [Mass/Vol] 463 mg/dL Invalid Interpretation Code 250 - 560 mg/dL AH Auto Coag SS Heparin dose (APTT) None Invalid Interpretation Code AH Auto Coag SS Comment on above: Result Comment: Spec imen slightly lipemic; results may be affected. INR Coag (PPP) [Relative time] 1.0 {INR} Invalid Interpretation Code AH Auto Coag SS PT Coag (PPP) [Time] 11.5 s Invalid Interpretation Code 9.0 - 14.9 seconds AH Auto Coag SS LABORATORYOrdered By: SYSTEM SYSTEM on 01-27-2022 HbA1c (Bld) [Mass fraction] 10.6 % Invalid Interpretation Code 4.0 - 6.0 % Auto Chem SS TSH Qn 2.138 mIU/mL Invalid Interpretation Code 0.550 - 4.780 mIU/mL AH ADM SS LABORATORYOrdered By: Rigo Greenwood on 01-27-2022 Appearance (U) Clear (01/27/22 10:21 AM) Invalid Interpretation Code Clear Auto Urine SS Bilirubin Ql (U) Negative (01/27/22 10:21 AM) Invalid Interpretation Code Neg-Trace AH Auto Urine SS Color (U) Yellow (01/27/22 10:21 AM) Invalid Interpretation Code AH Auto Urine SS Glucose Test strip (U) [Mass/Vol] 500 mg/dL Invalid Interpretation Code Negativemg/ dL AH Auto Urine SS Hemoglobin Auto test strip (U) [Mass/Vol] Negative (01/27/22 10:21 AM) Invalid Interpretation Code Neg-Trace AH Auto Urine SS Ketones Ql (U) Negative Invalid Interpretation Code Neg-Tracemg /dL AH Auto Urine SS UA Leuk Est Negative (01/27/22 10:21 AM) Invalid Interpretation Code Negative AH Auto Urine SS UA Nitrite Negative (01/27/22 10:21 AM) Invalid Interpretation Code Negative AH Auto Urine SS UA pH 5.5 (01/27/22 10:21 AM) Invalid Interpretation Code 5.0 - 8.0 AH Auto Urine SS UA Protein Negative Invalid Interpretation Code Negativemg/ dL AH Auto Urine SS UA Spec Grav >=1.030 *ABN* (01/27/22 10:21 AM) Invalid Interpretation Code 1.006-1.029 AH Auto Urine SS UA Specimen Type Clean Catch (01/27/22 10:21 AM) Invalid Interpretation Code AH Auto Urine SS UA Urobilinogen 0.2 E.U./dL Invalid Interpretation Code 0.2-1.0E.U. /dL AH Auto Urine SS LABORATORYOrdered By: Dipesh Dominguez on 01-27-2022 Date of Onset [id number] Invalid Interpretation Code AH Auto Viro/Sero SS Employed in Healthcare No (01/27/22 10:21 AM) Invalid Interpretation Code AH Auto Viro/Sero SS First Test Unknown (01/27/22 10:21 AM) Invalid Interpretation Code AH Auto Viro/Sero SS FLU A PCR Negative 5 (01/27/22 10:21 AM) Invalid Interpretation Code Negative AH Auto Viro/Sero SS Comment on above: Result Comment: Note s 1990 FLU B PCR Negative 6 (01/27/22 10:21 AM) Invalid Interpretation Code Negative AH Auto Viro/Sero SS Comment on above: Result Comment: Note s 1990 Hospitalized Yes (01/27/22 10:21 AM) Invalid Interpretation Code AH Auto Viro/Sero SS ICU No (01/27/22 10:21 AM) Invalid Interpretation Code AH Auto Viro/Sero SS Not (01/27/22 10:21 AM) Invalid Interpretation Code AH Auto Viro/Sero SS Resides in Congregate Care Setting No (01/27/22 10:21 AM) Invalid Interpretation Code AH Auto Viro/Sero SS RSV PCR Negative 7 (01/27/22 10:21 AM) Invalid Interpretation Code Negative AH Auto Viro/Sero SS Comment on above: Result Comment: Note s 1990 SARS-CoV-2 (COVID-19) RNA KIM+probe Ql (Unsp spec) Negative 4 (01/27/22 10:21 AM) Invalid Interpretation Code Negative AH Auto Viro/Sero SS Comment on above: Result Comment: Note s 1990 Symptomatic as Defined by CDC No (01/27/22 10:21 AM) Invalid Interpretation Code AH Auto Viro/Sero SS PLTon 01-27-2022 Platelet 256 10 3/mcL Normal 150-450 [facility] ([place]) Comment on above: Performed By: #### C BC, GFR, ANEU, CMP, ADIFF #### [facility] [address] [place] [id number] PROon 01-27-2022 INR Coag (PPP) [Relative time] 1.0 {INR} Normal [facility] ([place]) Comment on above: Result Comment: The [employer] (CHEST, 1992, 102:[id number]) recommended therapeutic range for oral anticoagulant therapy is: LOW RISK: Prophylaxis of venous thrombosis INR: 2.0-3.0 Treatment of pulmonary embolism 2.0-3.0 Prevention of systemic embolism 2.0-3.0 HIGH RISK: Mechanical prosthetic valves 2.5-3.5 Performed By: #### C BC, GFR, ANEU, CMP, ADIFF #### [facility] [address] [place] [id number] PT Coag (PPP) [Time] 11.5 s Normal 9.0-14.9 [facility] ([place]) Comment on above: Result Comment: Effe ctive 04/04/08, Protime results may be affected by some antibiotics (i.e. Ciprofloxacin, Azithromycin, Bactrim) which may potentiate the action of oral anticoagulants, with further increases in Protime/INR. Performed By: #### C BC, GFR, ANEU, CMP, ADIFF #### [address] [address] TSHon 01-27-2022 TSH 2.138 mIU/mL Normal 0.550-4.780 [facility] ([place]) Comment on above: Result Comment: No te - New Reference Range in effect 20 Performed By: #### C BC, GFR, ANEU, CMP, ADIFF #### [place] [id number] UAon 01-27-2022 Color (U) Yellow Normal [facility] ([place]) Comment on above: Performed By: #### C BC, GFR, ANEU, CMP, ADIFF #### [place] [address] Glucose (U) [Mass/Vol] 500 mg/dL Abnormal Negative [facility] ([place]) Comment on above: Performed By: #### C BC, GFR, ANEU, CMP, ADIFF #### [address] [address] Ketones Ql (U) Negative Normal Neg-Trace [facility] ([place]) Comment on above: Performed By: #### C BC, GFR, ANEU, CMP, ADIFF #### [place] [address] UA Appear Clear Normal Clear [facility] ([place] Comment on above: Performed By: #### C BC, GFR, ANEU, CMP, ADIFF #### [address] [address] UA Blood Negative Normal Neg-Trace [facility] ([place]) Comment on above: Performed By: #### C BC, GFR, ANEU, CMP, ADIFF #### [address] [address] UA Leuk Est Negative Normal Negative [facility] ([place]) Comment on above: Performed By: #### C BC, GFR, ANEU, CMP, ADIFF #### [address] [address] UA Nitrite Negative Normal Negative [facility] ([place]) Comment on above: Performed By: #### C BC, GFR, ANEU, CMP, ADIFF #### [address] [address] UA pH 5.5 Normal 5.0 - 8.0 [facility] ([place]) Comment on above: Performed By: #### C BC, GFR, ANEU, CMP, ADIFF #### [address] [address] UA Protein Negative Normal Negative [facility]) Comment on above: Performed By: #### C BC, GFR, ANEU, CMP, ADIFF #### [address] [address] UA Spec Grav >=1.030 Abnormal 1.006-1.029 [facility] ([place]) Comment on above: Performed By: #### C BC, GFR, ANEU, CMP, ADIFF #### [address] [address] UA Specimen Type Clean Catch Normal [facility] ([place]) Comment on above: Performed By: #### C BC, GFR, ANEU, CMP, ADIFF #### [address] [address] UA Urobilinogen 0.2 E.U./dL Normal 0.2-1.0 [facility] ([place]) Comment on above: Performed By: #### C BC, GFR, ANEU, CMP, ADIFF #### [address] [address] Urobilinogen (U) [Mass/Vol] Negative Normal Neg-Trace [facility] ([place]) Comment on above: Performed By: #### C BC, GFR, ANEU, CMP, ADIFF #### [address] [address] Hemoglobin A1con 01-02-2021 HbA1c (Bld) [Mass fraction] 10.5 % High 4.3-5.6 [facility] Comment on above: Performed By: #### H BA1C #### [facility] Routine Lab [address] [place], [place] [address] HbA1c (Bld) [Mass fraction] 255 mg/dL Normal [facility] Comment on above: Performed By: #### H BA1C #### [facility] Lab [address] [place] [id number] Coronavirus 2019on 0 COVID 19 Result PROGRAM SERVICES ASSISTANT Normal Negative for COVID19 (SARS CoV2) by PCR. [facility] Comment on above: Result Comment: Nega tive for This test was developed and its performance characteristics determined by [facility] [place]. This test has been authorized by [facility] under an Emergency Use Authorization (EUA). This test has been validated in accordance with the FDA's Guidance Document Policy for Diagnostics Testing in Laboratories Certified to Perform High Complexity Testing under CLIA prior to Emergency use Authorization for Coronavirus Disease 2019 during the Public Health Emergency issued on November 19, 2019. COVID19 (SARS This test was developed and its performance characteristics determined by [facility] [place]. This test has been authorized by FDA under an Emergency Use Authorization (EUA). This test has been validated in accordance with the FDA's Guidance Document Policy for Diagnostics Testing in Laboratories Certified to Perform High Complexity Testing under CLIA prior to Emergency use Authorization for Coronavirus Disease 2019 during the Public Health Emergency issued on November 19, 2019. CoV2) by PCR. This test was developed and its performance characteristics determined by [facility] [place]. This test has been authorized by FDA under an Emergency Use Authorization (EUA). This test has been validated in accordance with the FDA's Guidance Document Policy for Diagnostics Testing in Laboratories Certified to Perform High Complexity Testing under CLIA prior to Emergency use Authorization for Coronavirus Disease 2019 during the Public Health Emergency issued on November 19, 2019. Coronavirus 2019on 0 COVID 19 Source PROGRAM SERVICES ASSISTANT Normal [facility] Comment on above: Result Comment: Naso pharyngeal Corrected on 08/03 AT 1310: Previously reported as NASAL Swab Corrected on 08/03 AT 1310: Previously reported as NASAL Hemoglobin A1con 06-20-2020 HbA1c (Bld) [Mass fraction] 10.9 % High 4.3-5.6 [facility] Comment on above: Performed By: #### H BA1C #### [facility]ine Lab [address] [place], [place] [address] HbA1c (Bld) [Mass fraction] 266 mg/dL Normal [facility] Comment on above: Performed By: #### H BA1C #### [facility]ine Lab [address] [place] [address] Coronavirus 2019on 0 COVID 19 Source PROGRAM SERVICES ASSISTANT PROGRAM SERVICES ASSISTANT Normal [facility] Comment on above: Performed By: #### C OVID #### [facility] [address] [place] [id number] COVID 19 Result PROGRAM SERVICES ASSISTANT Normal Negative for COVID19 (SARS CoV2) by PCR. [facility] Comment on above: Result Comment: Nega tive for This test was developed and its performance characteristics determined by [facility] [place]. This test has been authorized by FDA under an Emergency Use Authorization (EUA). This test has been validated in accordance with the FDA's Guidance Document Policy for Diagnostics Testing in Laboratories Certified to Perform High Complexity Testing under CLIA prior to Emergency use Authorization for Coronavirus Disease 2019 during the Public Health Emergency issued on November 19, 2019. COVID19 (SARS This test was developed and its performance characteristics determined by [facility] [place]. This test has been authorized by FDA under an Emergency Use Authorization (EUA). This test has been validated in accordance with the FDA's Guidance Document Policy for Diagnostics Testing in Laboratories Certified to Perform High Complexity Testing under CLIA prior to Emergency use Authorization for Coronavirus Disease 2019 during the Public Health Emergency issued on November 19, 2019. CoV2) by PCR. This test was developed and its performance characteristics determined by [facility] [place]. This test has been authorized by FDA under an Emergency Use Authorization (EUA). This test has been validated in accordance with the FDA's Guidance Document Policy for Diagnostics Testing in Laboratories Certified to Perform High Complexity Testing under CLIA prior to Emergency use Authorization for Coronavirus Disease 2019 during the Public Health Emergency issued on November 19, 2019. Performed By: #### C OVID #### [facility] [address] [place] [address] Hemoglobin A1con 01-26-2020 HbA1c (Bld) [Mass fraction] 10.5 % High 4.3-5.6 [facility] Comment on above: Performed By: #### H BA1C #### [facility] Lab [address] [place] [address] HbA1c (Bld) [Mass fraction] 255 mg/dL Normal [facility] Comment on above: Performed By: #### H BA1C #### [facility]ine Lab [address] [place] [id number] Rx Refill: eRx Request for P ROAIR HFA 108 (90 BASE) MCG/ACT INH AERSon 02-13-2017 [facility]_RR [id number]`PROAIR HFA 108 (90 BASE) MCG/ACT INH AERS```2 Inhalation``2 puffs INH q 4-6 hours PRN Wheezing``3`0`12/10/2016`No date sent`[facility]*`[id number]`VENTOLIN HFA 90 MCG INHALER 90 MCG AERO Quantity: 36 Gram Instructions: INHALE 2 PUFFS BY MOUTH EVERY 4-6 HOURS NEEDED FOR WHEEZING [facility] Work Phone: Office Visiton 08-11-2016 Tobacco smoking status [facility] Current [facility] Work Phone: Tobacco smoking status [facility] Current every day smoker [facility] Work Phone: Vital Signs Date Time Vital Sign Value Performing Clinician Facility 03-23-2025 11:34-0400 Body height 185.[address] Gilson Hawk DO Work Phone: [facility] 03-23-2025 11:34-0400 Body mass index (BMI) [Ratio] 33.6 kg/m2 Dr. Gilson Hawk DO Work Phone: [facility] 03-23-2025 11:34-0400 Body weight 115.[address] Gilson Hawk DO Work Phone: [facility] 03-23-2025 11:34-0400 Diastolic blood pressure 83 mm[Hg] Dr. Gilson Hawk DO Work Phone: [facility] 03-23-2025 11:34-0400 Heart rate 91 /min Dr. Gilson Hawk DO Work Phone: [facility] 03-23-2025 11:34-0400 SaO2% (BldA) [Mass fraction] 92 % Dr. Gilson Hawk DO Work Phone: [facility] 03-23-2025 11:34-0400 Systolic blood pressure 123 mm[Hg] Dr. Gilson Hawk DO Work Phone: [facility] 03-21-2025 11:26-0400 Body height 185.[address] Gilson Hawk DO Work Phone: [facility] 03-21-2025 11:26-0400 Body mass index (BMI) [Ratio] 33.3 kg/m2 Dr. Gilson Hawk DO Work Phone: [facility] 03-21-2025 11:26-0400 Body temperature 96.4 [degF] Dr. Gilson Hawk DO Work Phone: [facility] 03-21-2025 11:26-0400 Body weight 114.[address] Gilson Hawk DO Work Phone: [facility] 03-21-2025 11:26-0400 Diastolic blood pressure 78 mm[Hg] Dr. Gilson Hawk DO Work Phone: [facility] 03-21-2025 11:26-0400 Heart rate 93 /min Dr. Gilson Hawk DO Work Phone: [facility] 03-21-2025 11:26-0400 Respiratory rate 16 /min Dr. Gilson Hawk DO Work Phone: [facility] 03-21-2025 11:26-0400 SaO2% (BldA) [Mass fraction] 94 % Dr. Gilson Hawk DO Work Phone: [facility] 03-21-2025 11:26-0400 Systolic blood pressure 124 mm[Hg] Dr. Gilson Hawk DO Work Phone: [facility] 02-24-2025 10:16-0400 Body height 185.[address] Gilson Hawk DO Work Phone: [facility] 02-24-2025 10:16-0400 Body mass index (BMI) [Ratio] 33.5 kg/m2 Dr. Gilson Hawk DO Work Phone: [facility] 02-24-2025 10:16-0400 Body temperature 98.4 [degF] Dr. Gilson Hawk DO Work Phone: [facility] 02-24-2025 10:16-0400 Body weight 115.[address] Gilson Hawk DO Work Phone: [facility] 02-24-2025 10:16-0400 Diastolic blood pressure 87 mm[Hg] Dr. Gilson Hawk DO Work Phone: [facility] 02-24-2025 10:16-0400 Heart rate 94 /min Dr. Gilson Hwak DO Work Phone: [facility] 02-24-2025 10:16-0400 Respiratory rate 16 /min Dr. Gilson Hawk DO Work Phone: [facility] 02-24-2025 10:16-0400 SaO2% (BldA) [Mass fraction] 94 % Dr. Gilson Hawk DO Work Phone: [facility] 02-24-2025 10:16-0400 Systolic blood pressure 136 mm[Hg] Dr. Gilson Hawk DO Work Phone: [facility] 02-22-2025 10:35-0400 Body height 185.[address] Gilson Hawk DO Work Phone: [facility] 02-22-2025 10:35-0400 Body mass index (BMI) [Ratio] 33 kg/m2 Dr. Gilson Hawk DO Work Phone: [facility] 02-22-2025 10:35-0400 Body temperature 97.3 [degF] Dr. Gilson Hawk DO Work Phone: [facility] 02-22-2025 10:35-0400 Body weight 113.[address] Gilson Hawk DO Work Phone: [facility] 02-22-2025 10:35-0400 Diastolic blood pressure 82 mm[Hg] Dr. Gilson Hawk DO Work Phone: [facility] 02-22-2025 10:35-0400 Heart rate 82 /min Dr. Gilson Hawk DO Work Phone: [facility] 02-22-2025 10:35-0400 Respiratory rate 20 /min Dr. Gilson Hawk DO Work Phone: [facility] 02-22-2025 10:35-0400 SaO2% (BldA) [Mass fraction] 94 % Dr. Gilson Hawk DO Work Phone: [facility] 02-22-2025 10:35-0400 Systolic blood pressure 124 mm[Hg] Dr. Gilson Hawk DO Work Phone: [facility] 01-30-2025 13:46-0400 Body mass index (BMI) [Ratio] 32.9 kg/m2 Dr. Gilson Hawk DO Work Phone: [facility] 01-30-2025 13:46-0400 Body weight 113.[address] Gilson Hawk DO Work Phone: [facility] 01-30-2025 13:46-0400 Diastolic blood pressure 83 mm[Hg] Dr. Gilson Hawk DO Work Phone: [facility] 01-30-2025 13:46-0400 Heart rate 89 /min Dr. Gilson Hawk DO Work Phone: [facility] 01-30-2025 13:46-0400 SaO2% (BldA) [Mass fraction] 93 % Dr. Gilson Hawk DO Work Phone: [facility] 01-30-2025 13:46-0400 Systolic blood pressure 118 mm[Hg] Dr. Gilson Hawk DO Work Phone: [facility] 01-18-2025 14:15-0400 Body mass index (BMI) [Ratio] 33.4 kg/m2 Dr. Gilson Hawk DO Work Phone: [facility] 01-18-2025 14:15-0400 Body weight 114.[address] Gilson Hawk DO Work Phone: [facility] 12-14-2024 12:52-0400 Body mass index (BMI) [Ratio] 32.8 kg/m2 Dr. Gilson Hawk DO Work Phone: [facility] 12-14-2024 12:52-0400 Body temperature 98 [degF] Dr. Gilson Hawk DO Work Phone: [facility] 12-14-2024 12:52-0400 Body weight 112.[address] Gilson Hawk DO Work Phone: [facility] 12-14-2024 12:52-0400 Diastolic blood pressure 78 mm[Hg] Dr. Gilson Hawk DO Work Phone: [facility] 12-14-2024 12:52-0400 Heart rate 86 /min Dr. Gilson Hawk DO Work Phone: [facility] 12-14-2024 12:52-0400 Respiratory rate 16 /min Dr. Gilson Hawk DO Work Phone: [facility] 12-14-2024 12:52-0400 SaO2% (BldA) [Mass fraction] 93 % Dr. Gilson Hawk DO Work Phone: [facility] 12-14-2024 12:52-0400 Systolic blood pressure 118 mm[Hg] Dr. Gilson Hawk DO Work Phone: [facility] 12-12-2024 13:25-0400 Body mass index (BMI) [Ratio] 33 kg/m2 Dr. Gilson Hawk DO Work Phone: [facility] 12-12-2024 13:25-0400 Body weight 113.[address] Gilson Hawk DO Work Phone: [facility] 12-12-2024 13:25-0400 Diastolic blood pressure 74 mm[Hg] Dr. Gilson Hawk DO Work Phone: [facility] 12-12-2024 13:25-0400 Heart rate 95 /min Dr. Gilson Hawk DO Work Phone: [facility] 12-12-2024 13:25-0400 SaO2% (BldA) [Mass fraction] 92 % Dr. iGlson Hawk DO Work Phone: [facility] 12-12-2024 13:25-0400 Systolic blood pressure 126 mm[Hg] Dr. Gilson Hawk DO Work Phone: [facility] 11-01-2024 13:14-0500 Body mass index (BMI) [Ratio] 32.3 kg/m2 Dr. Gilson Hawk DO Work Phone: [facility] 11-01-2024 13:14-0500 Body temperature 97.8 [degF] Dr. Gilson Hawk DO Work Phone: [facility] 11-01-2024 13:14-0500 Body weight 111.[address] Gilson Hawk DO Work Phone: [facility] 11-01-2024 13:14-0500 Diastolic blood pressure 70 mm[Hg] Dr. Gilson Hawk DO Work Phone: [facility] 11-01-2024 13:14-0500 Heart rate 88 /min Dr. Gilson Hawk DO Work Phone: [facility] 11-01-2024 13:14-0500 Respiratory rate 16 /min Dr. Gilson Hawk DO Work Phone: [facility] 11-01-2024 13:14-0500 SaO2% (BldA) [Mass fraction] 93 % Dr. Gilson Hawk DO Work Phone: [facility] 11-01-2024 13:14-0500 Systolic blood pressure 122 mm[Hg] Dr. Gilson Hawk DO Work Phone: [facility] 10-31-2024 14:22-0500 Body mass index (BMI) [Ratio] 32.9 kg/m2 Dr. Gilson Hawk DO Work Phone: [facility] 10-31-2024 14:22-0500 Body weight 113.[address] Gilson Hawk DO Work Phone: [facility] 10-31-2024 14:22-0500 Diastolic blood pressure 71 mm[Hg] Dr. Gilson Hawk DO Work Phone: [facility] 10-31-2024 14:22-0500 Heart rate 84 /min Dr. Gilson Hawk DO Work Phone: [facility] 10-31-2024 14:22-0500 SaO2% (BldA) [Mass fraction] 91 % Dr. Gilson Hawk DO Work Phone: [facility] 10-31-2024 14:22-0500 Systolic blood pressure 114 mm[Hg] Dr. Gilson Hawk DO Work Phone: [facility] 12-10-2022 17:43-0400 Body height 182.88 cm [facility] 12-10-2022 17:43-0400 Body mass index (BMI) [Ratio] 33.3 kg/m2 [facility] 12-10-2022 17:43-0400 Body temperature 96.9 [degF] [facility] 12-10-2022 17:43-0400 Body weight 111.58 kg [facility] 12-10-2022 17:43-0400 Diastolic blood pressure 94 mm[Hg] [facility] 12-10-2022 17:43-0400 Heart rate 89 /min [facility] 12-10-2022 17:43-0400 Respiratory rate 18 /min [facility] 12-10-2022 17:43-0400 SaO2% (BldA) [Mass fraction] 98 % [facility] 12-10-2022 17:43-0400 Systolic blood pressure 142 mm[Hg] [facility] 02-06-2022 11:30-0400 Heart rate 90 /min DR AMANDA CAIN MD [facility] 02-06-2022 10:51-0400 Heart rate 78 /min DR AMANDA CAIN MD [facility] 02-06-2022 10:51-0400 Respiratory rate 18 /min DR AMANDA CAIN MD [facility] 02-06-2022 10:39-0400 Body temperature 98.42 [degF] DR AMANDA CAIN MD [facility] 02-06-2022 10:39-0400 Diastolic Blood Pressure NBP [address] AMANDA CAIN MD [facility] 02-06-2022 10:39-0400 Heart rate 75 /min DR AMANDA CAIN MD [facility] 02-06-2022 10:39-0400 Reason For Taking VItal Signs DR AMANDA CAIN MD [facility] 02-06-2022 10:39-0400 Respiratory rate 18 /min DR AMANDA CAIN MD [facility] 02-06-2022 10:39-0400 Systolic Blood Pressure NBP [address] AMANDA CAIN MD [address] [place] [id number] 02-06-2022 08:14-0400 Heart rate 75 /min DR AMANDA CAIN MD [address] [place] [id number] 02-06-2022 08:14-0400 Heart rate 76 /min DR AMANDA CAIN MD [address] [place] [id number] 02-06-2022 07:05-0400 Body temperature 98.42 [degF] DR AMANDA CAIN MD [address] [place] [id number] 02-06-2022 07:05-0400 Diastolic Blood Pressure NBP [address] AMANDA CAIN MD [address] 02-06-2022 07:05-0400 Mean blood pressure 76 mm[Hg] DR AMANDA CAIN MD [address] 02-06-2022 07:05-0400 Reason For Taking VItal Signs DR AMANDA CAIN MD [facility] 02-06-2022 07:05-0400 Respiratory rate 18 /min DR AMANDA CAIN MD [facility] 02-06-2022 07:05-0400 Systolic Blood Pressure NBP [address] AMANDA CAIN MD [facility] 02-06-2022 06:46-0400 Heart rate 75 /min DR AMANDA CAIN MD [facility] 02-06-2022 04:47-0400 Body weight 105.[address] AMANDA CAIN MD [facility] 02-06-2022 04:30-0400 Reason For Taking VItal Signs DR AMANDA CAIN MD [address] [place] [id number] 02-06-2022 04:26-0400 Body temperature 98.42 [degF] DR AMANDA CAIN MD [address] [place] [id number] 02-06-2022 04:26-0400 Diastolic Blood Pressure NBP [address] AMANDA CAIN MD [address] [place] [id number] 02-06-2022 04:26-0400 Mean blood pressure 83 mm[Hg] DR AMANDA CAIN MD [facility] 02-06-2022 04:26-0400 Systolic Blood Pressure NBP [address] AMANDA CAIN MD [address] [place] [id number] 02-05-2022 22:30-0400 Heart rate 76 /min DR AMANDA CAIN MD [facility] 02-05-2022 22:08-0400 Mean blood pressure 89 mm[Hg] DR AMANDA CAIN MD [facility] 02-05-2022 08:08-0400 Heart rate 89 /min DR AMANDA CAIN MD [address] [place] [id number] 02-04-2022 08:30-0400 Heart rate 81 /min DR AMANDA CAIN MD [facility] 02-04-2022 05:24-0400 Body weight 110.[address] AMANDA CAIN MD [address] [place] [id number] 02-03-2022 23:48-0400 Body weight 110.[address] AMANDA CAIN MD [address] [place] [id number] 02-01-2022 11:00-0400 Mean blood pressure 68 mm[Hg] DR AMANDA CAIN MD [address] [place] [id number] 02-01-2022 11:00-0400 Systolic blood pressure 86 mm[Hg] DR AMANDA CAIN MD [address] [place] [id number] 02-01-2022 07:52-0400 Diastolic blood pressure 67 mm[Hg] DR AMANDA CAIN MD [facility] 02-01-2022 07:52-0400 Mean blood pressure 82 mm[Hg] DR AMANDA CAIN MD [facility] 02-01-2022 07:52-0400 Systolic blood pressure 105 mm[Hg] DR AMANDA CAIN MD [facility] 02-01-2022 07:15-0400 Diastolic blood pressure 55 mm[Hg] DR AMANDA CAIN MD [address] [place] [id number] 02-01-2022 07:15-0400 Mean blood pressure 69 mm[Hg] DR AMANDA CAIN MD [facility] 02-01-2022 07:15-0400 Systolic blood pressure 94 mm[Hg] DR AMANDA CAIN MD [facility] 02-01-2022 04:12-0400 SaO2% (BldA) [Mass fraction] 93.7 % DR AMANDA CAIN MD [facility] 01-31-2022 23:10-0400 SaO2% (BldA) [Mass fraction] 94.8 % DR AMANDA CAIN MD [facility] 01-31-2022 21:18-0400 SaO2% (BldA) [Mass fraction] 97.8 % DR AMANDA CAIN MD [facility] 01-31-2022 16:00-0400 Body temperature 99.46 [degF] DR AMANDA CAIN MD [facility] 01-31-2022 15:55-0400 Body temperature 99.63 [degF] DR AMANDA CAIN MD [facility] 01-31-2022 15:50-0400 Body temperature 99.66 [degF] DR AMANDA CAIN MD [facility] 01-31-2022 15:50-0400 Body temperature 99.3 [degF] DR AMANDA CAIN MD [facility] 01-31-2022 15:45-0400 Body temperature 99.43 [degF] DR AMANDA CAIN MD [facility] 01-31-2022 15:40-0400 Body temperature 99.68 [degF] DR AMANDA CAIN MD [facility] 01-31-2022 15:34-0400 SaO2% (BldA) [Mass fraction] 97.5 % DR AMANDA CAIN MD [facility] 01-31-2022 15:06-0400 SaO2% (BldA) [Mass fraction] 99.7 % DR AMANDA CAIN MD [facility] 01-31-2022 14:36-0400 SaO2% (BldA) [Mass fraction] 99.7 % DR AMANDA CAIN MD [facility] 01-31-2022 11:09-0400 Diastolic blood pressure 64 mm[Hg] DR AMANDA CAIN MD [facility] 01-31-2022 11:09-0400 Mean blood pressure 81 mm[Hg] DR AMANDA CAIN MD [facility] 01-31-2022 11:09-0400 Systolic blood pressure 116 mm[Hg] DR AMANDA CAIN MD [facility] 01-31-2022 09:32-0400 Diastolic blood pressure 74 mm[Hg] DR AMANDA CAIN MD [facility] 01-31-2022 09:32-0400 Mean blood pressure 85 mm[Hg] DR AMANDA CAIN MD [facility] 01-31-2022 09:32-0400 Systolic blood pressure 108 mm[Hg] DR AMANDA CAIN MD [address] [place] [id number] 01-31-2022 06:55-0400 Diastolic blood pressure 56 mm[Hg] DR AMANDA CAIN MD [address] [place] [address] 01-31-2022 06:55-0400 Mean blood pressure 66 mm[Hg] DR AMANDA CAIN MD [address] 01-31-2022 06:55-0400 Systolic blood pressure 86 mm[Hg] DR AMANDA CAIN MD [address] [place] [address] 01-29-2022 19:31-0400 Body temperature 96.44 [degF] DR AMANDA CAIN MD [address] 01-27-2022 08:29-0400 Body height [address] AMANDA CAIN MD [address] 01-27-2022 08:29-0400 Body weight 32.55 kg/m2 [facility] [facility] 01-27-2022 06:40-0400 Body height [address] AMANDA CAIN MD [facility] 01-27-2022 06:40-0400 diastolic 91 mm[Hg] DR AMANDA CAIN MD [address] [place] [address] 01-27-2022 06:40-0400 systolic 134 mm[Hg] DR AMANDA CAIN MD [facility] 06-24-2016 08:35-0400 BMI (Body Mass Index) 36.15 kg/m2 Ebony Espinoza CNP [facility] Work Phone: 06-24-2016 08:35-0400 Body Temperature 97 [degF] Ebony Espinoza PERSONNEL GENERALIST MANAGER [facility] Work Phone: 06-24-2016 08:35-0400 Body Temperature 96.98 [degF] Ebony Espinoza CNP [facility] Work Phone: 06-24-2016 08:35-0400 Body weight 124.29 kg Ebony Espinoza CNP [facility] Work Phone: 06-24-2016 08:35-0400 Body weight 124.55 kg Ebony Espinoza PERSONNEL GENERALIST MANAGER [facility] Work Phone: 06-24-2016 08:35-0400 BP Diastolic 77 mm[Hg] Ebony Espinoza CNP [facility] Work Phone: 06-24-2016 08:35-0400 BP Systolic 129 mm[Hg] Ebony Espinoza CNP [facility] Work Phone: 06-24-2016 08:35-0400 BSA (Body Surface Area) 2.46 m2 Ebony Espinoza CNP [facility] Work Phone: 06-24-2016 08:35-0400 Height 185.42 cm Ebony Espinoza CNP [facility] Work Phone: 06-24-2016 08:35-0400 Pulse (Heart Rate) 66 /min Ebony Espinoza CNP [facility] Work Phone: 06-24-2016 08:35-0400 Pulse Oximetry 94 % Ebony Espinoza CNP [facility] Work Phone: 06-24-2016 08:35-0400 Respiratory Rate 18 /min Ebony Espinoza [facility] Work Phone: Encounters Encounter Date Encounter Type Care Provider Facility Start: 03-23-2025 End: 03-23-[address] Modesto Finney MD -[facility] Work Phone: Start: 03-23-2025 End: 03-23-[address] Gilson Hawk DO Work Phone: -[facility] Start: 03-21-2025 End: 03-21-[address] Gilson Fairchild DO -[facility] Work Phone: Start: 03-21-2025 End: 03-21-[address] Gilson Hawk DO Work Phone: -[facility] Start: 03-21-2025 End: 03-21-2025 ambulatory Gilson Hawk Facility:[facility] Start: 03-02-2025 End: 03-02-[address] Jim Self MD -[facility] Work Phone: Start: 03-02-2025 End: 03-02-[address] Gilson Hawk DO Work Phone: [facility] Work Phone: Start: 02-24-2025 End: 02-24-[address] Weston Caro MD -[facility] Work Phone: Start: 02-24-2025 End: 02-24-[address] Gilson Hawk DO Work Phone: [facility] Work Phone: Start: 02-22-2025 End: 02-22-[address] Gilson Fairchild DO -[facility] Work Phone: Start: 02-22-2025 End: 02-22-[address] Gilson Hawk DO Work Phone: [facility] Work Phone: Start: 02-09-2025 ambulatory WESTON BROWNE [facility] Start: 01-30-2025 End: 01-30-2025 Patient encounter procedure Myra Alvarado PROGRAM SERVICES ASSISTANT-C -[facility] Work Phone: Start: 01-30-2025 End: 01-30-2025 ambulatory Myra Alvarado Facility:[facility] Start: 01-23-2025 ambulatory Weston Browne Facility :[facility] Start: 01-19-2025 End: 01-19-[address] Jim Self MD -[facility] Work Phone: Start: 01-19-2025 End: 01-19-2025 ambulatory Jim Self Facility:[facility] Start: 01-18-2025 End: 01-18-[address] Sanchez Kaminski MD -[facility] Start: 01-18-2025 End: 01-18-2025 ambulatory Sanchez Kaminski Facility:[facility] Start: 01-18-2025 End: 01-18-[address] Weston Browne DO -[facility] Work Phone: Start: 01-18-2025 End: 01-18-2025 ambulatory Gilson Hawk Facility:[facility] Start: 12-22-2024 ambulatory Yenny Vashti Abdirizak AGUIAR Facility :[facility] Start: 12-14-2024 End: 12-14-[address] Weston Caro MD -[facility] Work Phone: Start: 12-14-2024 End: 12-14-2024 ambulatory Gilson Hawk Facility:[facility] Start: 12-13-2024 End: 12-13-2024 ambulatory ANANYA HAYS Facility:[facility] Start: 12-12-2024 End: 12-12-2024 Patient encounter procedure Myra Alvarado PROGRAM SERVICES ASSISTANT-C -[facility] Work Phone: Start: 12-12-2024 End: 12-12-2024 ambulatory Myra Alvarado Facility:[facility] Start: 11-30-2024 End: 11-30-2024 ambulatory ANANYA SAÚL Facility:[facility] Start: 11-08-2024 ambulatory ANANYA SAÚL Facility :[facility] Start: 11-07-2024 ambulatory Gilson Hawk Facilit y:[facility] Start: 11-01-2024 End: 11-01-[address] Gilson Fairchild DO -[facility] Work Phone: Start: 11-01-2024 End: 11-01-2024 ambulatory Gilson Hawk Facility:[facility] Start: 10-31-2024 End: 10-31-2024 Patient encounter procedure Myra Alvarado PROGRAM SERVICES ASSISTANT-C -[facility] Work Phone: Start: 10-31-2024 End: 10-31-2024 ambulatory Myra Alvarado Facility:[facility] Start: 10-21-2024 End: 10-21-2024 ambulatory Jim Sesaysanford Facility:[facility] Start: 10-21-2024 End: 10-21-2024 ambulatory Ebony Espinoza NP Facility:[facility] Start: 10-17-2024 End: 10-17-2024 ambulatory Nael Miller Facility:[facility] Start: 10-12-2024 End: 10-12-2024 ambulatory Chris Gasca [facility] Start: 10-12-2024 End: 10-12-2024 Subsequent hospital visit by physician Chris Gasca Work Phone: [phone] [facility] Comment on above: Chronic obstructive pulmonary disease, unspecified COPD type (HCC) Start: 10-05-2024 ambulatory Jim Mollison Facility :[facility] Start: 10-05-2024 End: 10-05-2024 ambulatory Jim Mollison Facility:[facility] Start: 09-06-2024 End: 09-06-2024 ambulatory Jim Sesayison Facility:[facility] Start: 08-31-2024 End: 08-31-2024 ambulatory Gilson Fairchild Michael Facility:[facility] Start: 08-30-2024 End: 08-30-2024 ambulatory Weston Caro Facility:[facility] Start: 07-20-2024 End: 07-20-2024 ambulatory Abisai Hernandez NP Facility:[facility] Start: 07-20-2024 End: 07-20-2024 ambulatory Gilson Hawk Facility:[facility] Start: 06-20-2024 End: 06-20-2024 ambulatory LATASHA [facility] Start: 05-20-2024 ambulatory ABISAI PERSONNEL GENERALIST MANAGER [facility] Start: 05-19-2024 End: 05-19-2024 ambulatory Abisai Hernandez PROGRAM SERVICES ASSISTANT Facility:[facility] Start: 04-14-2024 ambulatory Abisai Hernandez PROGRAM SERVICES ASSISTANT Facil ity:[facility] Start: 04-12-2024 End: 04-12-2024 ambulatory ANANYA HAYS Facility: Start: 04-08-2024 End: 04-08-2024 ambulatory Abisai Hernandez PROGRAM SERVICES ASSISTANT Facility:[facility] Start: 04-05-2024 End: 04-05-2024 ambulatory Abisai Hernandez PROGRAM SERVICES ASSISTANT Facility:[facility] Start: 03-28-2024 End: 03-28-2024 ambulatory [facility] Facility: Start: 12-10-2022 End: 12-10-2022 Emergency department patient visit [facility] Start: 07-15-2022 End: 07-16-2022 ambulatory ABISAI HERNANDEZ PERSONNEL GENERALIST MANAGER Facility:[facility] Start: 07-15-2022 End: 07-15-2022 Patient encounter procedure DEVONTE HAWK MD [facility] Start: 06-20-2022 End: 06-21-2022 ambulatory ABISAI HERNANDEZ CNP Facility:[facility] Start: 06-20-2022 End: 06-20-2022 Patient encounter procedure DEVONTE HAWK MD [facility] Start: 02-24-2022 End: 02-25-2022 ambulatory MS. MELVIN L CHELSEY PERSONNEL GENERALIST MANAGER Facility:[facility] Start: 02-24-2022 End: 02-24-2022 Patient encounter procedure MELVIN BARBOSA DRAWER FITTER-PERSONNEL GENERALIST MANAGER [facility] Start: 02-13-2022 ambulatory ABISAI HERNANDEZ PERSONNEL GENERALIST MANAGER Fa cility:[facility] Start: 02-11-2022 End: 02-12-2022 ambulatory ABISAI HERNANDEZ PERSONNEL GENERALIST MANAGER Facility:[facility] Start: 02-11-2022 End: 02-11-2022 Patient encounter procedure CHAYITO BROOKS DRAWER FITTER-FISH AND WILDLIFE TECHNICIAN [facility] Start: 01-27-2022 End: 02-06-2022 Evaluation and management of inpatient ABISAI HERNANDEZ CNP Facility:[facility] Start: 01-27-2022 End: 02-06-2022 Evaluation and management of inpatient DR AMANDA CAIN MD [facility] Start: 11-13-2021 ambulatory ABISAI HERNANDEZ PERSONNEL GENERALIST MANAGER Fa cility:[facility] Start: 11-13-2021 End: 12-08-2022 Pre-admission assessment DR CHAD PSENCER MD [facility] Procedures Date Procedure Procedure Detail Performing Clinician Start: 01-18-2025 Plain x-ray of pelvi s and lower extremity Dr. Gilson Hawk DO Work Phone: Start: 01-18-2025 X-ray of lumbar spin e, two or three views Dr. Gilson Hawk DO Work Phone: Start: 10-12-2024 Echo tthrc r-t 2d w/wom-mode compl spec&colr d Chris Gasca Work Phone: Start: 12-10-2022 X-ray of chest posteroanterior view Start: 01-31-2022 History of coronary artery bypass grafting S/P CABG (coronary artery bypass graft) Dr. Gilson Hawk DO Work Phone: Comment on above: x3; left internal ma mmary artery to the LAD with a reverse saphenous vein, aortocoronary graft to the obtuse marginal coronary artery and to the posterior descending coronary artery. Start: 01-31-2022 Coronary artery bypa ss grafts x [address] AMADNA CAIN MD Comment on above: using RANDALL and LSVG Start: 09-22-2016 End: 11-27-2016 Pulmonary Function Test - complete Ebony Espinoza PERSONNEL GENERALIST MANAGER Work Phone: Start: 09-22-2016 End: 11-27-2016 Pulmonary stress test/simple Ebony Espinoza CNP Work Phone: Start: 08-11-2016 End: 08-11-2016 Documentation of current medications Ebony Espinoza CNP Start: 08-11-2016 End: 08-11-2016 Smoking cessation education Ebony Espinoza CNP Start: 06-24-2016 End: 11-27-2016 BWA Ebony Espinoza PERSONNEL GENERALIST MANAGER Work Phone: Start: 06-24-2016 End: 11-27-2016 Follow Up Appt 3 months Ebony Yoseph arguelles PERSONNEL GENERALIST MANAGER Work Phone: Start: 03-14-2015 End: 06-23-2016 Complete sleep workup (PSG,CPAP as indicated) & Follow up Dipesh Olivas Work Phone: Start: 03-14-2015 End: 03-14-2015 Documentation of current medications Dipesh Olivas Work Phone: Start: 03-14-2015 End: 06-23-2016 Follow Up Appt 3 months Dipesh Olivas Work Phone: Start: 03-14-2015 End: 06-23-2016 Pulmonary Function Test - complete Dipesh Olivas Work Phone: Arthroscopic knee operation DR AMANDA CAIN MD History of coronary artery bypass grafting S/P CABG x 3( Confirmed ) CHAYITO BROOKS APRN-[facility] History of coronary artery bypass grafting S/P CABG (coronary artery bypass graft) History of operative procedure on knee History of arthroscopic knee surgery Repair of elbow DR AMANDA CAIN MD Plan of Treatment Date Care Activity Detail Author Start: 04-05-2025 ambulatory Ambulatory Facility:[facility] Start: 01-18-2025 Patient referral [facility] Work Phone: Start: 12-14-2024 Patient referral [facility] Work Phone: Start: 11-01-2024 Patient referral [facility] Work Phone: Start: 2024 Prostate specific antigen measurement PSA SHARED DECISION MAKING [facility] [employer] [facility] Start: 05-22-2024 COVID-19 VACCINE ( season) COVID-19 VACCINE ( season) [facility] Start: 05-22-2024 Influenza vaccination given INFLUENZA VACCINE (#1) [facility] Start: 2019 Zoster vaccine hzv live for subcutaneous use ZOSTER (SHINGLES) VACCINE (1 of 2) [facility] Start: 09-22-2016 End: 11-27-2016 Pulmonary Function Test - complete Pulmonary Function Test - complete [facility] Phone: Start: 09-22-2016 End: 11-27-2016 Pulmonary stress test/simple Pulmonary stress testing; simple (eg, 6-minute walk) [facility] Phone: Start: 08-13-2016 End: 08-13-2016 Physical Therapy General Physical Therapy [facility], [address] [place] [address], [facility] Phone: Start: 08-11-2016 End: 08-11-2016 Radex shoulder complete minimum 2 views X-Ray, Shoulder [facility] Phone: Start: 06-24-2016 End: 11-27-2016 BWA BWA [facility] Phone: Start: 06-24-2016 End: 11-27-2016 Follow Up Appt 3 months Follow Up Appt 3 months [facility] Phone: Start: 10-31-2015 End: 10-31-2015 [facility] Phone: Start: 10-31-2015 End: 10-31-2015 Follow Up Appt 3 months Follow Up Appt 3 months [facility] Phone: Start: 03-14-2015 End: 06-23-2016 Complete sleep workup (PSG,CPAP as indicated) & Follow up Complete sleep workup (PSG,CPAP as indicated) & Follow up [facility] Phone: Start: 03-14-2015 End: 06-23-2016 Follow Up Appt 3 months Follow Up Appt 3 months [facility] Phone: Start: 03-14-2015 End: 06-23-2016 Pulmonary Function Test - complete Pulmonary Function Test - complete [facility] Phone: Start: 2014 Screening for malignant neoplasm of colon [facility] Start: 2004 Fasting lipid profile LIPID SCREENING [facility] Start: 1987 ANNUAL WELLNESS VISIT ANNUAL WELLNESS VISIT [facility] Start: 1981 Depression screening using PHQ-9 (Patient Health Questionnaire 9) score DEPRESSION SCREENING [facility] Start: 1980 Administration of diphtheria + tetanus + acellular pertussis vaccine DTAP/TDAP/TD VACCINE (1 - Tdap) [facility] Comprehensive metabo lic 1999 panel - Serum or Plasma [facility] Hemoglobin A1c/Hemoglobin.total in Blood [facility] Lipid 1996 panel - S edwin or Plasma [facility] Magnesium measurement [facility] Patient Education SHOULDER%20PAIN [facility] Work Phone: Patient referral [facility] Work Phone: Immunizations Immunization Date Immunization Notes Care Provider [facility] 08-20-2023 influenza, injectabl e, quadrivalent, preservative free Dr. Gilson Hawk DO Work Phone: [facility] 07-30-2022 influenza, injectabl e, quadrivalent, preservative free Dr. Gilson Hawk DO Work Phone: [facility] 12-19-2021 Pneumococcal Vaccine PCV20 (Prevnar 20) Dr. Gilson Hawk DO Work Phone: [facility] 07-26-2021 pneumococcal conjuga te vaccine, [address] Gilson Hawk DO Work Phone: [facility] 07-24-2021 Seasonal, quadrivale nt, recombinant, injectable influenza vaccine, preservative free Dr. Gilson Hawk DO Work Phone: [facility] 02-20-2021 Sulaiman (Moderna) Dr. Gilson Hawk DO Work Phone: [facility] 01-25-2021 Sulaiman (Moderna) Dr. Gilson Hawk DO Work Phone: [facility] 07-11-2020 influenza, injectabl e, quadrivalent, preservative free Dr. Gilson Hawk DO Work Phone: [facility] 06-26-2019 influenza, injectabl e, quadrivalent, preservative free Dr. Gilson Hawk DO Work Phone: [facility] 06-29-2018 influenza, injectabl e, quadrivalent, preservative free Dr. Gilson Hawk DO Work Phone: [facility] 07-03-2017 influenza, seasonal, injectable, preservative free Dr. Gilson Hawk DO Work Phone: [facility] 07-14-2016 influenza, seasonal, injectable, preservative free Dr. Gilson Hawk DO Work Phone: [facility] 07-14-2016 pneumococcal polysaccharide vaccine, [address] Gilson Hawk DO Work Phone: [facility] 04-20-2014 tetanus toxoid, redu susie diphtheria toxoid, and acellular pertussis vaccine, adsorbed Dr. Gilson Hawk DO Work Phone: [facility] Payers Date Payer Category Payer Worker's Compensation [employer] [id number] 2024 Self-pay [id number] 2023 Medicaid [id number] 2021 Unknown [id number] 2021 Unknown [id number] 1969 Unknown [id number] 2.16.840.1.163898.3.579.2.6 27 1969 Unknown [id number] 2.16.840.1.205614.3.579.2.6 27 1969 Unknown [id number] 2.16.840.1.578423.3.579.2.6 27 1969 Unknown [id number] 2.16.840.1.317315.3.579.2.6 27 1969 Unknown [id number] 2.16.840.1.021486.3.579.2.6 27 1969 Unknown [id number] 2.16.840.1.700625.3.579.2.6 27 1969 Unknown [id number] 2.16.840.1.009316.3.579.2.6 27 1969 Unknown [id number] 2.16.840.1.724892.3.579.2.2 97 1969 Unknown [id number] 2.16.840.1.424588.3.579.2.6 51 1969 Unknown [id number] 2.16.840.1.691697.3.579.2.6 51 Unknown [facility] [id number] Unknown [id number] Unknown [id number] 2.16.840.1.262487.3.579.2.5 28 Unknown [id number] 2.16.840.1.644738.3.579.2.5 28 Unknown [id number] 2.16.840.1.279377.3.579.2.5 28 Unknown [id number] 2.16.840.1.142720.3.579.2.5 28 Unknown [id number] 2.16.840.1.852452.3.579.2.5 28 Unknown [id number] 2.16.840.1.876619.3.579.2.4 62 Unknown [id number] 2.16.840.1.567314.3.579.2.4 62 Unknown [id number] 2.16.840.1.272325.3.579.2.4 62 Unknown [id number] 2.16.840.1.543893.3.579.2.4 62 Unknown [id number] 2.16.840.1.273536.3.579.2.4 62 Unknown [id number] 2.16.840.1.093149.3.579.2.4 62 Unknown [id number] 2.16.840.1.106876.3.579.2.4 62 Unknown [id number] 2.16.840.1.741831.3.579.2.4 62 Unknown [id number] 2.16.840.1.173879.3.579.2.4 62 Unknown [id number] 2.16.840.1.701101.3.579.2.4 62 Unknown [id number] 2.16.840.1.140573.3.579.2.4 62 Unknown [id number] 2.16.840.1.637391.3.579.2.4 62 Unknown [id number] 2.16.840.1.070938.3.579.2.4 62 Unknown [id number] 2.16.840.1.940526.3.579.2.4 62 Unknown [id number] 2.16.840.1.231260.3.579.2.4 62 Unknown [id number] 2.16.840.1.972498.3.579.2.4 62 Unknown [id number] 2.16.840.1.506174.3.579.2.4 62 Unknown [id number] 2.16.840.1.013003.3.579.2.4 62 Unknown [id number] 2.16.840.1.163321.3.579.2.4 62 Unknown [id number] 2.16.840.1.558841.3.579.2.4 62 Unknown [id number] 2.16.840.1.556541.3.579.2.4 62 Unknown [id number] 2.16.840.1.648613.3.579.2.4 62 Unknown [id number] 2.16.840.1.318006.3.579.2.4 62 Unknown [id number] 2.16.840.1.895122.3.579.2.4 62 Unknown [id number] 2.16.840.1.348437.3.579.2.4 62 Unknown [id number] 2.16.840.1.356583.3.579.2.4 62 Unknown [id number] 2.16.840.1.664226.3.579.2.4 62 Unknown [id number] 2.16.840.1.060296.3.579.2.4 62 Unknown [id number] 2.16.840.1.855626.3.579.2.4 62 Unknown [id number] 2.16.840.1.400016.3.579.2.4 62 Unknown [id number] 2.16.840.1.292574.3.579.2.4 62 Unknown [id number] 2.16.840.1.325015.3.579.2.4 62 Unknown [id number] 2.16.840.1.566194.3.579.2.4 62 Unknown [id number] 2.16.840.1.327779.3.579.2.4 62 Social History Date Type Detail Facility Start: 12-21-2020 End: 06-20-2022 Tobacco smoking status Heavy tobacco smoker (finding) [facility] Comment on above: currently smoking 1 PPD, started Chantix a few days ago hoping for it to work Sex Assigned At Sex [facility] Start: 08-07-2022 Tobacco smoking stat us DEIS Unknown if ever smoked [facility] Start: 1970 Sex Assigned At Male W [facility] Start: 1970 [facility] file [facility] Start: 02-24-2025 End: 03-22-2025 Tobacco smoking status NHIS Smokes tobacco daily (finding) [facility] Medical Equipment Procedure Code Equipment Code Equipment Origin al Text Equipment Identifier Dates See Instructions , Testing blood glucose TID.1 box, # 1 EA, 1 Refill(s), Pharmacy: [facility], Diabetes mellitus Hgb A1c 10.6%, 185, cm, 01/27/22 8:29:00 EDT, Height, 105.7, kg, 02/06/22 4:47:00 EDT, Dosing Weight Start: 02-06-2022 See Instructions , Testing blood glucose TID.1 box, # 1 EA, 1 Refill(s), Pharmacy: [facility], Diabetes mellitus Hgb A1c 10.6%, 185, cm, 01/27/22 8:29:00 EDT, Height, 105.7, kg, 02/06/22 4:47:00 EDT, Dosing Weight Start: 02-06-2022 See Instructions , Testing blood glucose TID.1 box, # 1 EA, 1 Refill(s), Pharmacy: [facility], Diabetes mellitus Hgb A1c 10.6%, 185, cm, 01/27/22 8:29:00 EDT, Height, 105.7, kg, 02/06/22 4:47:00 EDT, Dosing Weight Start: 02-06-2022 See Instructions , Testing blood glucose TID.1 box, # 1 EA, 1 Refill(s), Pharmacy: [facility], Diabetes mellitus Hgb A1c 10.6%, 185, cm, 01/27/22 8:29:00 EDT, Height, 105.7, kg, 02/06/22 4:47:00 EDT, Dosing Weight Start: 02-06-2022 See Instructions , Testing blood glucose TID.1 box, # 1 EA, 1 Refill(s), Pharmacy: [facility], Diabetes mellitus Hgb A1c 10.6%, 185, cm, 01/27/22 8:29:00 EDT, Height, 105.7, kg, 02/06/22 4:47:00 EDT, Dosing Weight Start: 02-06-2022 See Instructions , Testing blood glucose TID.1 box, # 1 EA, 1 Refill(s), Pharmacy: [facility], Diabetes mellitus Hgb A1c 10.6%, 185, cm, 01/27/22 8:29:00 EDT, Height, 105.7, kg, 02/06/22 4:47:00 EDT, Dosing Weight Start: 02-06-2022 Pen Needle, Diab etic (Comfort Ez Pen Encinal) 31 gauge x 5/16 needle Start: 08-02-2024 Pen Needle, Diab etic (Comfort Ez Pen Encinal) 31 gauge x 5/16 needle Start: 08-02-2024 Pen Needle, Diab etic (Comfort Ez Pen Encinal) 31 gauge x 5/16 needle Start: 08-02-2024 Pen Needle, Diab etic (Comfort Ez Pen Encinal) 31 gauge x 5/16 needle Start: 08-02-2024 Pen Needle, Diab etic (Comfort Ez Pen Encinal) 31 gauge x 5/16 needle Start: 08-02-2024 Pen Needle, Diab etic (Comfort Ez Pen Encinal) 31 gauge x 5/16 needle Start: 08-02-2024 Functional Status Date Assessment Result Facility 02-06[facility] 02-06-[facility] 02-06-[facility]22 Functional Status [facility] 02-06-2022 [facility] 02-06-[facility] 02-05-2022 [facility] 02-05-[facility] 02-05-[facility]22 [facility] 02-05-2022 [facility] 02-05-2022 [facility] 02-04-2022 [facility] 02-04-2022 [facility] 02-04-2022 [facility] 02-04-2022 [facility] 02-04-2022 [facility] 02-03-2022 [facility] 02-03-2022 [facility] 02-03-2022 [facility] 02-03-2022 [facility] 02-02-2022 [facility] 02-02-2022 [facility] 02-02-2022 [facility] 01-31-2022 [facility] 01-31-2022 [facility] 01-31-2022 [facility] 01-31-2022 [facility] 01-31-2022 [facility] 01-30-2022 [facility] 01-27-2022 [facility] 01-27-2022 [facility] Mental Status Date Assessment Result Facility [facility]-06[facility]22 [facility]-05[facility]05[facility] [facility] 02-05-2022 [facility] Clinical Notes 01-27-2022 to 12-20-2024 Note Date & Type Note Facility 12-20-2024 Note [place] [id number] HEALTH INFORMATION MANAGEMENT OPERATIVE REPORT : [id number] Signed Patient: YENNY GARCIA Acct:[id number] MRUN: [id number] : 1970 Sex: M Loc: SDS ADM Date: Room/Bed: DISC Date: 12/13/24 _ DATE: 12/13/2024 PREOPERATIVE DIAGNOSIS: Cataract, right eye. POSTOPERATIVE DIAGNOSIS: Cataract, right eye. OPERATION: Phacoemulsification of the right eye, placement of posterior chamber Clareon intraocular lens. ANESTHESIA: General. HEAD BOYS GOLF COACH: None. COMPLICATIONS: None. LOSS OF BLOOD: None. SPECIMENS: None. INDICATIONS FOR PROCEDURE: This patient has central posterior subcapsular cataract, right eye. Best visual acuity is 20/50. The patient is a diabetic, but demonstrates no diabetic cystoid macular edema. There is no other retinopathy. He is having difficulty with reading. I expect significant improvement following the surgery. OPERATIVE REPORT: The patient was brought to the operating room and identified as the patient, having cataract surgery, right eye. The patient was placed under general anesthetic and prepped and draped in the usual sterile fashion for right eye procedure. Time-out performed. Lid speculum was placed to hold the lids back. Attention was focused on the superior nasal quadrant. Cautery was used on the conjunctiva just posterior to the limbus. Small opening was made in the conjunctiva with Josey scissors. Following this, a blunt 19-gauge sub-Tenon's cannula was introduced and anesthetic solution was injected, 2% Xylocaine with epinephrine mixed half and half 0.5% Marcaine. This was done to help alleviate postoperative pain. After this, a small fornix-based conjunctival flap was made superiorly. Hemostasis achieved with bipolar cautery. Groove incision made with 6900 blade and beveled clear cornea. Anterior chamber was entered with a 2.4 mm keratome. Viscoat was instilled. Counterpuncture incision made with sideport blade. Bent 25-gauge needle was then used to fashion the first part of an anterior capsular flap. Circular capsulorrhexis then completed. The nucleus was loosened from its cortical attachments using hydrodissection. Phacoemulsification tip was introduced in the eye and the nucleus was emulsified using the 4-quadrant crack technique. Irrigation aspiration function was then used to remove the remainder of the cortex. Posterior capsule was polished. Provisc was used to inflate the capsular bag and anterior chamber. Foldable Clareon posterior chamber implant placed in capsular bag without difficulty. Irrigation and aspiration function was then used to remove all of the Provisc and Viscoat. Balanced salt solution was injected through the sideport incision. Wound was checked for tightness, found to be tight. Kefzol, Solu-Medrol and tobramycin injected subconjunctivally inferiorly. Lid speculum was removed. A drop of Cosopt and erythromycin ointment placed in the eye. Eye pad shield placed over the eye. The patient awoke and went to recovery room in good condition. He tolerated the procedure well. No complications. /[facility] TID: [id number] Dictated By: ANANYA HAYS MD Signed By: ANANYA HAYS MD < > Co Signed By: Dictated Date/Time: 12/13/24 1428 Transcribed Date/Time: 12/13/[address]: Signed Date/Time: 12/20/24 0838 Co Signed Date/Time: CC: ANANYA HAYS MD [facility] 12-20-2024 [place] [address] HEALTH INFORMATION MANAGEMENT DISCHARGE SUMMARY : [id number] Signed Patient: YENNY GARCIA Acct:[id number] MRUN: [id number] : 1970 Sex: M Loc: SDS ADM Date: Room/Bed: DISC Date: 12/13/24 _ DATE: 12/13/2024 HOSPITAL COURSE: The patient entered the hospital on 12/13, dense cataract, right eye. He underwent a phacoemulsification procedure, placement of posterior chamber intraocular lens, no complications, discharged in good condition. Only homegoing instructions were to take a Diamox Sequels that evening. He was also instructed to resume his regular and p.r.n. medications. He was also instructed to leave the patch and shield in place. As stated above, he tolerated the procedure well, no complications, discharged in good condition and will be seen in the office in 24 hours for followup. TM/JIMBO TID: [id number] Dictated By: ANANYA HAYS MD Signed By: ANANYA HAYS MD < > Co Signed By: Dictated Date/Time: 12/13/24 1429 Transcribed Date/Time: 12/13/[address]: Signed Date/Time: 12/20/24 0837 Co Signed Date/Time: CC: [facility] 12-12-2024 Evaluation note Diagnosis Onset Date Resolution Dyslipidemia chronic December 12, 2024 1:23pm GERD (gastroesophageal reflux disease) chronic December 12, 2024 1:23pm High triglycerides chronic December 12, 2024 1:23pm Hypertension chronic December 12, 2024 1:23pm Neuropathy chronic December 12 1:23pm Nicotine dependence chronic December 12, 2024 1:23pm Obesity chronic December 12 1:23pm Type 2 diabetes mellitus chronic December 12, 2024 1:23pm Diabetic neuropathy associated with diabetes mellitus due to underlying acute December 14, 2024 12:49pm Degenerative disc disease, lumbar acute January 18, 2025 12:55pm Greater trochanteric bursitis of right hip acute December 12:55pm Carpal tunnel syndrome on both sides acute January 19, 2025 1: 16pm Dyslipidemia chronic January 30 1:44pm High triglycerides chronic January 302024 1:44pm Hypertension chronic January 30 1:44pm Neuropathy chronic January 30, 2025 1:44pm Obesity chronic January 30, 2025 1:44pm Tobacco abuse chronic January 30, 2 025 1:44pm Type 2 diabetes mellitus chronic January 30, 2025 1:44pm Degenerative disc disease, lumbar acute February 22, 2025 10:20am GERD (gastroesophageal reflux disease) chronic February 22, 2025 10:20am Neuropathy chronic February 24, 2025 10:15am Carpal tunnel syndrome on both sides acute March 02, 2025 10:30am [facility] Work Phone: 1(835) 306-761003-24-2025 Evaluation note* Diagnosis Onset Date Resolution Status Admit Date Dyslipidemia chronic December 12, 2024 1:23pm GERD (gastroesophageal reflu x disease) chronic December 12, 2024 1:23pm High triglycerides chronic December 12, 2024 1:23pm Hypertension chronic December 12, 2024 1:23pm Neuropathy chronic December 12 1:23pm Nicotine dependence chronic December 12, 2024 1:23pm Obesity chronic December 12 1:23pm Type 2 diabetes mellitus chronic December 12, 2024 1:23pm Diabetic neuropathy associat ed with diabetes mellitus due to underlying acute December 14, 2024 12:49pm Degenerative disc disease, lumbar acute January 18, 2025 12:55pm Greater trochanteric bursiti s of right hip acute January 18, 2025 12:55pm Carpal tunnel syndrome on jay th sides acute January 19, 2025 1: 16pm Dyslipidemia chronic January 30 1:44pm High triglycerides chronic January [id number] 1:44pm Hypertension chronic January 30 1:44pm Neuropathy chronic January 30, 2025 1:44pm Obesity chronic January 30, 2025 1:44pm Tobacco abuse chronic January 30, 2 025 1:44pm Type 2 diabetes mellitus chronic January 30, 2025 1:44pm Degenerative disc disease, lumbar acute February 22, 2025 1 0:20am GERD (gastroesophageal reflu x disease) chronic February 22, 2025 1 0:20am Neuropathy chronic February 24, 2025 10:15am Carpal tunnel syndrome on jay th sides acute March 02, 2025 10:30am Carpal tunnel syndrome on jay th sides acute March 21, 2025 1 1:20am Diabetic neuropathy associat ed with diabetes mellitus due to underlying acute March 21, 2025 1 1:20am Muscle cramps acute March 21, 2 025 11:20am Asthma-COPD overlap syndrome chronic March 21, 2025 11:20am Coronary artery disease chronic J [email or web address] 11:20am High triglycerides chronic March 212024 11:20am Hypertension chronic March 21 11:20am Type 2 diabetes mellitus chronic March 21, 2025 11:20am [facility] [employer] [facility] Work Phone: 1(371) 130-605003-24-2025 Evaluation note* Diagnosis Onset Date Resolution Status Admit Date Dyslipidemia chronic December 12, 2024 1:23pm GERD (gastroesophageal reflu x disease) chronic December 12, 2024 1:23pm High triglycerides chronic December 12, 2024 1:23pm Hypertension chronic December 12, 2024 1:23pm Neuropathy chronic December 12 1:23pm Nicotine dependence chronic December 12, 2024 1:23pm Obesity chronic December 12 1:23pm Type 2 diabetes mellitus chronic December 12, 2024 1:23pm Diabetic neuropathy associat ed with diabetes mellitus due to underlying acute December 14, 2024 12:49pm Degenerative disc disease, lumbar acute January 18, 2025 12:55pm Greater trochanteric bursiti s of right hip acute January 18, 2025 12:55pm Carpal tunnel syndrome on jay th sides acute January 19, 2025 1: 16pm Dyslipidemia chronic January 30 1:44pm High triglycerides chronic January 302024 1:44pm Hypertension chronic January 30 1:44pm Neuropathy chronic January 30, 2025 1:44pm Obesity chronic January 30, 2025 1:44pm Tobacco abuse chronic January 30, 2 025 1:44pm Type 2 diabetes mellitus chronic January 30, 2025 1:44pm Degenerative disc disease, lumbar acute February 22, 2025 1 0:20am GERD (gastroesophageal reflu x disease) chronic February 22, 2025 1 0:20am Neuropathy chronic February 24, 2025 10:15am Carpal tunnel syndrome on jay th sides acute March 02, 2025 10:30am Carpal tunnel syndrome of ri ght wrist acute March 21, 2025 1 1:20am Carpal tunnel syndrome on jay th sides acute March 21, 2025 1 1:20am Diabetic neuropathy associat ed with diabetes mellitus due to underlying acute March 21, 2025 1 1:20am Muscle cramps acute March 21, 2 025 11:20am Asthma-COPD overlap syndrome chronic March 21, 2025 11:20am Coronary artery disease chronic J 2024 11:20am High triglycerides chronic March 212024 11:20am Hypertension chronic March 21 11:20am Smoking greater than 20 pack years chronic March 21, 2025 1 1:20am Type 2 diabetes mellitus chronic March 21, 2025 11:20am [facility] [employer] Work Phone: 1(432) 532-579903-24-2025 Evaluation note* Diagnosis Onset Date Resolution Status Admit Date Dyslipidemia chronic December 12, 2024 1:23pm GERD (gastroesophageal reflu x disease) chronic December 12, 2024 1:23pm High triglycerides chronic December 12, 2024 1:23pm Hypertension chronic December 12, 2024 1:23pm Neuropathy chronic December 12 1:23pm Nicotine dependence chronic December 12, 2024 1:23pm Obesity chronic December 12 1:23pm Type 2 diabetes mellitus chronic December 12, 2024 1:23pm Diabetic neuropathy associat ed with diabetes mellitus due to underlying acute December 14, 2024 12:49pm Degenerative disc disease, lumbar acute January 18, 2025 12:55pm Greater trochanteric bursiti s of right hip acute January 18, 2025 12:55pm Carpal tunnel syndrome on jay th sides acute January 19, 2025 1: 16pm Dyslipidemia chronic January 30 1:44pm High triglycerides chronic January 302024 1:44pm Hypertension chronic January 30 1:44pm Neuropathy chronic January 30, 2025 1:44pm Obesity chronic January 30, 2025 1:44pm Tobacco abuse chronic January 30, 2 025 1:44pm Type 2 diabetes mellitus chronic January 30, 2025 1:44pm Degenerative disc disease, lumbar acute February 22, 2025 1 0:20am GERD (gastroesophageal reflu x disease) chronic February 22, 2025 1 0:20am Neuropathy chronic February 24, 2025 10:15am Carpal tunnel syndrome on jay th sides acute March 02, 2025 10:30am Carpal tunnel syndrome of ri ght wrist acute March 21, 2025 1 1:20am Carpal tunnel syndrome on jay th sides acute March 21, 2025 1 1:20am Diabetic neuropathy associat ed with diabetes mellitus due to underlying acute March 21, 2025 1 1:20am Muscle cramps acute March 21, 2 025 11:20am Asthma-COPD overlap syndrome chronic March 21, 2025 11:20am Coronary artery disease chronic J 2024 11:20am High triglycerides chronic March 212024 11:20am Hypertension chronic March 21 11:20am Smoking greater than 20 pack years chronic March 21, 2025 1 1:20am Type 2 diabetes mellitus chronic March 21, 2025 11:20am Dyslipidemia March 23 11:42am Hypertension March 23 11:42am Obesity March 23, 2025 11:42am Polyneuropathy March 23, 2025 11:42am Tobacco abuse March 23, 025 11:42am Type 2 diabetes mellitus March 23, 2025 11:42am [facility] Work Phone: 1(156) 950-149102-10-2025 Evaluation note* Diagnosis Onset Date Resolution Status Admit Date Dyslipidemia october 2:20pm High triglycerides chronic 2024 2:20pm Hypertension chronic October 2:20pm Neuropathy October 31, 2024 2:20pm Obesity chronic October 31, 2024 2:20pm Type 2 diabetes mellitus chronic October 31, 2024 2:20pm Diabetic neuropathy associat ed with diabetes mellitus due to underlying acute November 01, 025 1:10pm Right hip pain acute October 222024 1:10pm COPD (chronic obstructive pulmonary disease) chronic October 1:10pm Dyslipidemia chronic December 12, 2024 1:23pm GERD (gastroesophageal reflu x disease) chronic December 12, 2024 1:23pm High triglycerides chronic December 12, 2024 1:23pm Hypertension chronic December 12, 2024 1:23pm Neuropathy chronic December 12 1:23pm Nicotine dependence chronic December 12, 2024 1:23pm Obesity chronic December 12 1:23pm Type 2 diabetes mellitus chronic December 12, 2024 1:23pm Diabetic neuropathy associat ed with diabetes mellitus due to underlying acute December 14, 2024 12:49pm Degenerative disc disease, lumbar acute January 18, 2025 12:55pm Greater trochanteric bursiti s of right hip acute January 18, 2025 12:55pm Carpal tunnel syndrome on jay th sides acute January 19, 2025 1: 16pm Dyslipidemia chronic January 30 1:44pm High triglycerides chronic January 302024 1:44pm Hypertension chronic January 30 1:44pm Neuropathy chronic January 30, 2025 1:44pm Obesity chronic January 30, 2025 1:44pm Tobacco abuse chronic January 30, 2 025 1:44pm Type 2 diabetes mellitus chronic January 30, 2025 1:44pm Degenerative disc disease, lumbar acute February 22, 2025 1 0:20am GERD (gastroesophageal reflu x disease) chronic February 22, 2025 1 0:20am [facility] Work Phone: 1(444) 182-635507-30-2024 [place] [address] HEALTH INFORMATION MANAGEMENT OPERATIVE REPORT : [id number] Signed Patient: YENNY GARCIA Acct:[id number] MRUN: [id number] : 1970 Sex: M Loc: SDS ADM Date: Room/Bed: DISC Date: 04/12/24 DATE: 04/12/2024 PREOPERATIVE DIAGNOSIS: Cataract, left eye. PREOPERATIVE DIAGNOSIS: Cataract, left eye. OPERATION: Phacoemulsification, left eye, placement of posterior chamber intraocular lens. ANESTHESIA: MAC. HEAD BOYS GOLF COACH: None. COMPLICATIONS: None. LOSS OF BLOOD: None. SPECIMENS: None. INDICATIONS FOR PROCEDURE: This patient has an extremely dense posterior subcapsular cataract of the left eye. His best visual acuity is 20/50. The patient is a diabetic, but demonstrates no diabetic cystoid macular edema. There is no other retinopathy. He is having difficulty with reading. I expect significant improvement following the surgery. OPERATIVE REPORT: The patient was brought to the operating room and identified as the patient having cataract surgery, left eye. Topical tetracaine drops placed in the left eye and the patient prepped and draped in the usual sterile fashion for left eye procedure. Timeout performed. Lid speculum was placed to hold the lids back. Attention was focused on the superior temporal quadrant. Cautery was used on the conjunctiva just posterior to the limbus. A small opening was made in the conjunctiva with Josey scissors. Following this, a blunt 19 gauge sub-Tenon's cannula was introduced and anesthetic solution was injected, 2% Xylocaine with epinephrine mixed half and half 0.5% Marcaine. After adequate anesthesia, a small fornix-based conjunctival flap was made superiorly. Hemostasis achieved with bipolar cautery. Groove incision made with 6900 blade and beveled clear cornea. Anterior chamber was entered with a 2.4 mm keratome. Viscoat was instilled. Counterpuncture incision made with sideport blade. Bent 25-gauge needle was then used to fashion the first part of anterior capsular flap. Circular capsulorrhexis then completed. The nucleus was loosened from its cortical attachments using hydrodissection. Phacoemulsification tip was introduced in the eye and nucleus emulsified in 4-quadrant crack technique. Irrigation aspiration function was used to remove the remainder of the cortex. Posterior capsule was polished. Provisc was used to inflate the capsular bag and anterior chamber. Foldable Clareon posterior chamber intraocular lens was placed in the capsular bag without difficulty. Irrigation and aspiration function was then used to remove all the Provisc and Viscoat. Balanced salt solution was injected through the sideport incision. Wound was checked for tightness, found to be tight. Kefzol, Solu-Medrol and tobramycin injected subconjunctivally inferiorly. Conjunctival flap closed with bipolar cautery. Lid speculum was removed. A drop of Cosopt and erythromycin ointment was placed in the eye. Patch and shield placed over the eye and the patient went to the holding area in good condition. He tolerated the procedure well. No complications. TM/TAR TID: [id number] Dictated By: ANANYA HAYS MD Signed By: ANANYA HAYS MD < > Co Signed By: Dictated Date/Time: 04/12/24 1247 Transcribed Date/Time: 04/12/[address]: Signed Date/Time: 04/19/24 0844 Co Signed Date/Time: CC: ANANYA HAYS [facility]07-30-2024 [place] [address] HEALTH INFORMATION MANAGEMENT DISCHARGE SUMMARY : [id number] Signed Patient: YENNY GARCIA Acct:[id number] MRUN: [id number] : 1970 Sex: M Loc: SDS ADM Date: Room/Bed: DISC Date: 04/12/24 DATE: 04/12/2024 HOSPITAL COURSE: The patient entered the hospital on 04/12, dense cataract, left eye. Underwent a phacoemulsification procedure, placement of posterior chamber intraocular lens, no complications, discharged in good condition. Only homegoing instructions were to take a Diamox Sequels that evening. He was also instructed to resume his regular and p.r.n. medications. He was also instructed to leave the patch and shield in place. As stated above, he tolerated the procedure well, no complications, discharged in good condition and will be seen in office in 24 hours for followup. MARCO/[facility] TID: [id number] Dictated By: ANANYA HAYS MD Signed By: ANANYA HAYS MD < > Co Signed By: Dictated Date/Time: 04/12/24 1248 Transcribed Date/Time: 04/12/[address]: Signed Date/Time: 04/19/24 0844 Co Signed Date/Time: CC:[facility]05-24-2022 Evaluation + Plan note Future Scheduled Tests Laboratory* Basic Metabolic Panel 02/11/22 * Hepatic Function Panel 06/06/22 * Hepatic Function Panel 02/25/22 * Hepatic Function Panel 04/24/22 * CPK 06/06/22 * Lipid Profile 06/06/22 * Lipid Profile 02/25/22 * Lipid Profile 04/24/22 Radiology* XR Chest 2 Views (PA & Lateral) 10/28/22 * XR Chest 2 Views (PA & Lateral) 04/07/22 * XR Chest 2 Views (PA & Lateral) 10/21/22 [facility] 05-19-2022 Hospital Discharge instructions Patient Education 02/06/2022 11:49:32 Form - Daily Weight Record Daily Weight Record It is important to weigh yourself daily. To do this: Make sure you use a reliable scale. Use the same scale each day. Keep this daily weight chart near your scale. Weigh yourself each morning at the same time. Before weighing yourself: ?Take off your shoes. ?Make sure you are wearing the same amount of clothing each day. Write down your weight in the spaces on the form. Compare today's weight to yesterday's weight. Bring this form with you to your follow-up visits with your health care provider. Call your health care provider if you have concerns about your weight, including rapid weight gain or loss. Date: Weight: Date: Weight: Date: Weight: Date: Weight: Date: Weight: Date: Weight: Date: Weight: Date: Weight: Date: Weight: Date: Weight: Date: Weight: Date: Weight: Date: Weight: Date: Weight: Date: Weight: Date: Weight: Date: Weight: Date: Weight: Date: Weight: Date: Weight: Date: Weight: Date: Weight: Date: Weight: Date: Weight: Date: Weight: Date: Weight: Date: Weight: Date: Weight: Date: Weight: Date: Weight: Date: Weight: Date: Weight: Date: Weight: Date: Weight: Date: Weight: Date: Weight: Date: Weight: Date: Weight: Date: Weight: Date: Weight: Date: Weight: Date: Weight: Date: Weight: Date: Weight: Date: Weight: Date: Weight: Date: Weight: Date: Weight: Date: Weight: Date: Weight: This information is not intended to replace advice given to you by your health care provider. Make sure you discuss any questions you have with your health care provider. Document Released: 11/19/2007 Document Revised: 09/06/2018 Document Reviewed: 09/06/2018 Elsevier Patient Education 2019 [employer] 02/06/2022 11:49:22 8- Open Heart Surgery (Bypass or Valve) 10/2019(CUSTOM) OPEN HEART SURGERY (Bypass or Valve Surgery) General Guidelines for Care After Surgery Please read the instructions below and refer to it during the next few weeks. Recovering from surgery is different for everyone. Some people feel great after 3 or 4 weeks and others take longer depending on their condition before the surgery. These are general guidelines on how to care for yourself but always follow your doctor s instructions. If you have questions or problems after you go home, please call your doctor. MEDICINES You have the list of medicine you need to take at home. Be sure you understand this list and keep acopy with you at all times. Never add or stop medicine unless you check with your doctor first. Call the doctor if you have any of the following problems: If you start throwing up or have stomach pain or diarrhea If you feel dizzy or lightheaded when you stand up If you are confused or have trouble walking If you feel like your heart is racing and beating fast or if you feel like it is beating too slow If you get a rash If you notice bleeding or lots of bruising If you are taking a blood thinner such as warfarin after having valve surgery, please read the handout that has been given to you by the nurse. PAIN AFTER SURGERY You might feel some pain after your heart surgery. Please take your pain medicine if you need it following the directions on the bottle. If your pain becomes worse or if you are having trouble breathing, call your surgeon. As you heal and the pain begins to go away, take your pain medicine less often Pain medicine will sometimes cause you to become constipated. It is OK to take an over the counter stool softener. Eating lots of fruit and vegetables can also help with constipation. CARE OF YOUR INCISIONS Pay attention to your incisions and shower every day after you go home. Some swelling, bruising or redness is normal and will get better with time. Do not take a bath until all of your incisions are healed. Wash the incisions gently with antibacterial soap and water in the shower Use a clean washcloth every day Wash your chest incision first, then wash any arm incision, and last wash leg incisions Wash the rest of your body after cleaning all of your incisions Never use any cream or lotion on your incisions until they are healed all the way. Keep your incisions clean and dry Do not cover the incision with a dressing unless you are having drainage If you have joseline, they will be taken out at the office visit You might notice some swelling or a lump at the top of the chest incision, but this is normal. Callyour surgeon right away if you notice clicking in your chest. Your legs might swell after your surgery so follow these tips: Keep legs elevated when sitting. As a rule, it is best to elevate them above the level of your heart. For instance, if you are lying flat on a sofa, place your legs up on the arm of the sofa. Do not cross your legs. Wear your elastic stockings during the day for 4 weeks. Put them on before you get out of bed in the morning and then take them off at night. These will help keep your legs from swelling. ACTIVITY It is important to keep moving after heart surgery, but you will need to take rest periods throughout the day. Every day, increase your activity as you are able. Walk as much as possible, and gradually increase your distance every day. It will be normal to be sore for a couple of weeks after surgery. Get medical attention if your condition seems to be getting worse instead of better No heavy housework or heavy work outdoors You may use the stairs as tolerated Avoid lifting anything greater than 10 pounds Avoid any pushing or pulling with your arms. Avoid overexertion and take rest periods when you get tired Do not drive until your doctor tells you it is OK, typically 4 weeks. It is fine to go upstairs but take it slow and do not pull yourself up with the handrail. Avoid opening windows and opening tight jar lids. Do not bear down with bowel movements and do not hold your breath. Check with the surgeon before returning to work. Waiting 1-3 weeks is recommended for sexual intercourse. When you can walk briskly or climb 2 flights of stairs without pain or shortness of breath, you may be ready for sex. WEIGHT Weigh yourself every morning and write it down on paper. Use the same scale and weigh at the same time each day. Tell your doctor if you gain 2 pounds or more in one day. EATING HEALTHY Your doctor wants you to follow a heart healthy diet which is low in salt and low in fat. Your nurse has given you a book all about the diet you will need to follow. If you are diabetic or overweight, you will be given a calorie restriction too. If constipation is a problem, add more bran or fiber to your diet and you may take a mild nlir-oox-thbbgbc laxative like Milk of Magnesia . CARDIAC REHABILITATION Getting involved in cardiac rehab after your heart surgery is the best thing that you can do to feel better and stronger at a faster rate. The program is medically supervised to help patients recoverand improve mental and physical function. It also helps reduce stress and can decrease your risk ofhaving more heart problems. Your doctor will let you know when you can begin the program. SMOKING Give up smoking after heart surgery or it may cancel out the value of having your surgery. It may also delay the healing process. If you need help to quit, please call your surgeon or your heart doctor. [facility] also has a free stop smoking program called Give it Up and if you want to attend, pleasecall [phone] Call the Surgeon If your incisions are red, oozing pus, or bleeding or if the edges are Call if there is a clicking in your sternum. Call if you are more short of breath. Call if you have dizziness Call if you have a fever of 101 or higher. Call if you have more ankle swelling, pain in your leg, or pain in your calf. Call the Heart Doctor (Nuclear Operations Specialist) If your heart beats are irregular or are fast. If you have any questions about your medicine. If you gain 2 or more pounds in one day. If you feel dizzy or lightheaded when you first stand up. If you have any questions about getting help at home after you are discharged. If you have painful, frequent or bloody urination. GET IMMEDIATE MEDICAL HELP IF YOU HAVE: Chest pain, jaw pain, sweating, dizziness or severe shortness of breath, you could be having a heart attack. Please dial [phone] immediately. 02/06/2022 11:48:16 Health Risks of Smoking Health Risks of Smoking Smoking cigarettes is very bad for your health. Tobacco smoke has over 200 known poisons in it. It contains the poisonous gases nitrogen oxide and carbon monoxide. There are over 60 chemicals in tobacco smoke that cause cancer. Smoking is difficult to quit because a chemical in tobacco, called nicotine, causes addiction or dependence. When you smoke and inhale, nicotine is absorbed rapidly into the bloodstream through your lungs. Both inhaled and non-inhaled nicotine may be addictive. What are the risks of cigarette smoke? Cigarette smokers have an increased risk of many serious medical problems, including: Lung cancer. Lung disease, such as pneumonia, bronchitis, and emphysema. Chest pain (angina) and heart attack because the heart is not getting enough oxygen. Heart disease and peripheral blood vessel disease. High blood pressure (hypertension). Stroke. Oral cancer, including cancer of the lip, mouth, or voice box. Bladder cancer. Pancreatic cancer. Cervical cancer. complications, including premature . Stillbirths and smaller babies, defects, and genetic damage to sperm. Early menopause. Lower estrogen level for women. Infertility. Facial wrinkles. Blindness. Increased risk of broken bones (fractures). Senile dementia. Stomach ulcers and internal bleeding. Delayed wound healing and increased risk of complications during surgery. Even smoking lightly shortens your life expectancy by several years. Because of secondhand smoke exposure, children of smokers have an increased risk of the following: Sudden syndrome (SIDS). Respiratory infections. Lung cancer. Heart disease. Ear infections. What are the benefits of quitting? There are many health benefits of quitting smoking. Here are some of them: Within days of quitting smoking, your risk of having a heart attack decreases, your blood flow improves, and your lung capacity improves. Blood pressure, pulse rate, and breathing patterns start returning to normal soon after quitting. Within months, your lungs may clear up completely. Quitting for 10 years reduces your risk of developing lung cancer and heart disease to almost that of a nonsmoker. People who quit may see an improvement in their overall quality of life. How do I quit smoking? Smoking is an addiction with both physical and psychological effects, and longtime habits can be hard to change. Your health care provider can recommend: Programs and community resources, which may include group support, education, or talk therapy. Prescription medicines to help reduce cravings. Nicotine replacement products, such as patches, gum, and nasal sprays. Use these products only as directed. Do not replace cigarette smoking with electronic cigarettes, which are commonly called e-cigarettes. The safety of e-cigarettes is not known, and some may contain harmful chemicals. A combination of two or more of these methods. Where to find more information [place] [employer]: www.lung.org [place] [employer]: www.cancer.org Summary Smoking cigarettes is very bad for your health. Cigarette smokers have an increased risk of many serious medical problems, including several cancers, heart disease, and stroke. Smoking is an addiction with both physical and psychological effects, and longtime habits can be hard to change. By stopping right away, you can greatly reduce the risk of medical problems for you and your family. To help you quit smoking, your health care provider can recommend programs, community resources, prescription medicines, and nicotine replacement products such as patches, gum, and nasal sprays. This information is not intended to replace advice given to you by your health care provider. Make sure you discuss any questions you have with your health care provider. Document Released: 10/15/2005 Document Revised: 12/09/2018 Document Reviewed: 09/11/2017 [employer] Patient Education 2020 [employer]. 02/06/2022 09:34:16 Blood Glucose Monitoring, Adult Blood Glucose Monitoring, Adult Monitoring your blood sugar (glucose) is an important part of managing your diabetes (diabetes mellitus). Blood glucose monitoring involves checking your blood glucose as often as directed and keeping a record (log) of your results over time. Checking your blood glucose regularly and keeping a blood glucose log can: Help you and your health care provider adjust your diabetes management plan as needed, including your medicines or insulin. Help you understand how food, exercise, illnesses, and medicines affect your blood glucose. Let you know what your blood glucose is at any time. You can quickly find out if you have low bloodglucose (hypoglycemia) or high blood glucose (hyperglycemia). Your health care provider will set individualized treatment goals for you. Your goals will be basedon your age, other medical conditions you have, and how you respond to diabetes treatment. Generally, the goal of treatment is to maintain the following blood glucose levels: Before meals (preprandial): 80 130 mg/dL (4.4 7.2 mmol/L). After meals (postprandial): below 180 mg/dL (10 mmol/L). A1c level: less than 7%. Supplies needed: Blood glucose meter. Test strips for your meter. Each meter has its own strips. You must use the strips that came with your meter. A needle to prick your finger (lancet). Do not use a lancet more than one time. A device that holds the lancet (lancing device). A journal or log book to write down your results. How to check your blood glucose 1.Wash your hands with soap and water. 2.Prick the side of your finger (not the tip) with the lancet. Use a different finger each time. 3.Gently rub the finger until a small drop of blood appears. 4.Follow instructions that come with your meter for inserting the test strip, applying blood to thestrip, and using your blood glucose meter. 5.Write down your result and any notes. Some meters allow you to use areas of your body other than your finger (alternative sites) to test your blood. The most common alternative sites are: Forearm. Thigh. Palm of the hand. If you think you may have hypoglycemia, or if you have a history of not knowing when your blood glucose is getting low (hypoglycemia unawareness), do not use alternative sites. Use your finger instead. Alternative sites may not be as accurate as the fingers, because blood flow is slower in these areas. This means that the result you get may be delayed, and it may be different from the result thatyou would get from your finger. Follow these instructions at home: Blood glucose log Every time you check your blood glucose, write down your result. Also write down any notes about things that may be affecting your blood glucose, such as your diet and exercise for the day. This information can help you and your health care provider: ?Look for patterns in your blood glucose over time. ?Adjust your diabetes management plan as needed. Check if your meter allows you to download your records to a computer. Most glucose meters store a record of glucose readings in the meter. If you have type 1 diabetes: Check your blood glucose 2 or more times a day. Also check your blood glucose: ?Before every insulin injection. ?Before and after exercise. ?Before meals. ?2 hours after a meal. ?Occasionally between 2:00 a.m. and 3:00 a.m., as directed. ?Before potentially dangerous tasks, like driving or using heavy machinery. ?At bedtime. You may need to check your blood glucose more often, up to 6 10 times a day, if you: ?Use an insulin pump. ?Need multiple daily injections (MDI). ?Have diabetes that is not well-controlled. ?Are ill. ?Have a history of severe hypoglycemia. ?Have hypoglycemia unawareness. If you have type 2 diabetes: If you take insulin or other diabetes medicines, check your blood glucose 2 or more times a day. If you are on intensive insulin therapy, check your blood glucose 4 or more times a day. Occasionally, you may also need to check between 2:00 a.m. and 3:00 a.m., as directed. Also check your blood glucose: ?Before and after exercise. ?Before potentially dangerous tasks, like driving or using heavy machinery. You may need to check your blood glucose more often if: ?Your medicine is being adjusted. ?Your diabetes is not well-controlled. ?You are ill. General tips Always keep your supplies with you. If you have questions or need help, all blood glucose meters have a 24-hour hotline phone number that you can call. You may also contact your health care provider. After you use a few boxes of test strips, adjust (calibrate) your blood glucose meter by following instructions that came with your meter. Contact a health care provider if: Your blood glucose is at or above 240 mg/dL (13.3 mmol/L) for 2 days in a row. You have been sick or have had a fever for 2 days or longer, and you are not getting better. You have any of the following problems for more than 6 hours: ?You cannot eat or drink. ?You have nausea or vomiting. ?You have diarrhea. Get help right away if: Your blood glucose is lower than 54 mg/dL (3 mmol/L). You become confused or you have trouble thinking clearly. You have difficulty breathing. You have moderate or large ketone levels in your urine. Summary Monitoring your blood sugar (glucose) is an important part of managing your diabetes (diabetes mellitus). Blood glucose monitoring involves checking your blood glucose as often as directed and keeping a record (log) of your results over time. Your health care provider will set individualized treatment goals for you. Your goals will be basedon your age, other medical conditions you have, and how you respond to diabetes treatment. Every time you check your blood glucose, write down your result. Also write down any notes about things that may be affecting your blood glucose, such as your diet and exercise for the day. This information is not intended to replace advice given to you by your health care provider. Make sure you discuss any questions you have with your health care provider. Document Released: 09/09/2004 Document Revised: 07/01/2019 Document Reviewed: 02/16/2017 [employer] Patient Education 2020 [employer]. 02/06/2022 09:34:15 Carbohydrate Counting for Diabetes Mellitus, Adult Carbohydrate Counting for Diabetes Mellitus, Adult Carbohydrate counting is a method of keeping track of how many carbohydrates you eat. Eating carbohydrates naturally increases the amount of sugar (glucose) in the blood. Counting how many carbohydrates you eat helps keep your blood glucose within normal limits, which helps you manage your diabetes(diabetes mellitus). It is important to know how many carbohydrates you can safely have in each meal. This is different for every person. A diet and nutrition consultant (registered dietitian) can help you make a meal plan and calculate how many carbohydrates you should have at each meal and snack. Carbohydrates are found in the following foods: Grains, such as breads and cereals. Dried beans and soy products. Starchy vegetables, such as potatoes, peas, and corn. Fruit and fruit juices. Milk and yogurt. Sweets and snack foods, such as cake, cookies, candy, chips, and soft drinks. How do I count carbohydrates? There are two ways to count carbohydrates in food. You can use either of the methods or a combination of both. Reading Nutrition Facts on packaged food The Nutrition Facts list is included on the labels of almost all packaged foods and beverages in the [place] It includes: The serving size. Information about nutrients in each serving, including the grams (g) of carbohydrate per serving. To use the Nutrition Facts: Decide how many servings you will have. Multiply the number of servings by the number of carbohydrates per serving. The resulting number is the total amount of carbohydrates that you will be having. Learning standard serving sizes of other foods When you eat carbohydrate foods that are not packaged or do not include Nutrition Facts on the label, you need to measure the servings in order to count the amount of carbohydrates: Measure the foods that you will eat with a food scale or measuring cup, if needed. Decide how many standard-size servings you will eat. Multiply the number of servings by 15. Most carbohydrate-rich foods have about 15 g of carbohydrates per serving. ?For example, if you eat 8 oz (170 g) of strawberries, you will have eaten 2 servings and 30 g of carbohydrates (2 servings x 15 g = 30 g). For foods that have more than one food mixed, such as soups and casseroles, you must count the carbohydrates in each food that is included. The following list contains standard serving sizes of common carbohydrate-rich foods. Each of theseservings has about 15 g of carbohydrates: hamburger bun or [place] muffin. oz (15 mL) syrup. oz (14 g) jelly. 1 slice of bread. 1 six-inch tortilla. 3 oz (85 g) cooked rice or pasta. 4 oz (113 g) cooked dried beans. 4 oz (113 g) starchy vegetable, such as peas, corn, or potatoes. 4 oz (113 g) hot cereal. 4 oz (113 g) mashed potatoes or of a large baked potato. 4 oz (113 g) canned or frozen fruit. 4 oz (120 mL) fruit juice. 4 6 crackers. 6 chicken nuggets. 6 oz (170 g) unsweetened dry cereal. 6 oz (170 g) plain fat-free yogurt or yogurt sweetened with artificial sweeteners. 8 oz (240 mL) milk. 8 oz (170 g) fresh fruit or one small piece of fruit. 24 oz (680 g) popped popcorn. Example of carbohydrate counting Sample meal 3 oz (85 g) chicken breast. 6 oz (170 g) brown rice. 4 oz (113 g) corn. 8 oz (240 mL) milk. 8 oz (170 g) strawberries with sugar-free whipped topping. Carbohydrate calculation 1.Identify the foods that contain carbohydrates: Rice. [place]. Milk. Strawberries. 2.Calculate how many servings you have of each food: 2 servings rice. 1 serving corn. 1 serving milk. 1 serving strawberries. 3.Multiply each number of servings by 15 servings rice x 15 g = 30 g. 1 serving corn x 15 g = 15 g. 1 serving milk x 15 g = 15 g. 1 serving strawberries x 15 g = 15 g. 4.Add together all of the amounts to find the total grams of carbohydrates eaten: 30 g + 15 g + 15 g + 15 g = 75 g of carbohydrates total. Summary Carbohydrate counting is a method of keeping track of how many carbohydrates you eat. Eating carbohydrates naturally increases the amount of sugar (glucose) in the blood. Counting how many carbohydrates you eat helps keep your blood glucose within normal limits, which helps you manage your diabetes. A diet and nutrition consultant (registered dietitian) can help you make a meal plan and calculate how many carbohydrates you should have at each meal and snack. This information is not intended to replace advice given to you by your health care provider. Make sure you discuss any questions you have with your health care provider. Document Released: 09/07/2006 Document Revised: 04/01/2018 Document Reviewed: 02/18/2017 [employer] Patient Education 2020 [employer] 02/06/2022 09:34:08 Insulin Injection Instructions, Using Insulin Pens, Adult Insulin Injection Instructions, Using Insulin Pens, Adult A subcutaneous injection is a shot of medicine that is injected into the layer of fat and tissue between skin and muscle. People with type 1 diabetes must take insulin because their bodies do not make it. People with type 2 diabetes may need to take insulin. There are many different types of insulin. The type of insulin that you take may determine how manyinjections you give yourself and when you need to give the injections. Supplies needed: Soap and water to wash hands. Your insulin pen. A new, unused needle. Alcohol wipes. A disposal container that is meant for sharp items (sharps container), such as an empty plastic bottle with a cover. How to choose a site for injection The body absorbs insulin differently, depending on where the insulin is injected (injection site). It is best to inject insulin into the same body area each time (for example, always in the abdomen),but you should use a different spot in that area for each injection. Do not inject the insulin in the same spot each time. There are five main areas that can be used for injecting. These areas include: Abdomen. This is the preferred area. Front of thigh. Upper, outer side of thigh. Upper, outer side of arm. Upper, outer part of buttock. How to use an insulin pen First, follow the steps for Get ready, then continue with the steps for Inject the insulin. Get ready 1.Wash your hands with soap and water. If soap and water are not available, use hand ground control approach technician. 2.Before you give yourself an insulin injection, be sure to test your blood sugar level (blood glucose level) and write down that number. Follow any instructions from your health care provider about what to do if your blood glucose level is higher or lower than your normal range. 3.Check the expiration date and the type of insulin that is in the pen. 4.If you are using CLEAR insulin, check to see that it is clear and free of clumps. 5.If you are using CLOUDY insulin, do not shake the pen to get the injection ready. Instead, get itready in one of these ways: Gently roll the pen between your palms several times. Tip the pen up and down several times. 6.Remove the cap from the insulin pen. 7.Use an alcohol wipe to clean the rubber tip of the pen. 8.Remove the protective paper tab from the disposable needle. Do not let the needle touch anything. 9.Screw a new, unused needle onto the pen. 10.Remove the outer plastic needle cover. Do not throw away the outer plastic cover yet. If the pen uses a special safety needle, leave the inner needle shield in place. If the pen does not use a special safety needle, remove the inner plastic cover from the needle. 11.Follow the canopy stringer's instructions to prime the insulin pen with the volume of insulin needed. Hold the pen with the needle pointing up, and push the button on the opposite end of the pen until a drop of insulin appears at the needle tip. If no insulin appears, repeat this step. 12.Turn the button (dial) to the number of units of insulin that you will be injecting. Inject the insulin 1.Use an alcohol wipe to clean the site where you will be injecting the needle. Let the site air-dry. 2.Hold the pen in the palm of your writing hand like a pencil. 3.If directed by your health care provider, use your other hand to pinch and hold about an inch (2.5 cm) of skin at the injection site. Do not directly touch the cleaned part of the skin. 4.Gently but quickly, use your writing hand to put the needle straight into the skin. The needle should be at a 90-degree angle (perpendicular) to the skin. 5.When the needle is completely inserted into the skin, use your thumb or index finger of your writing hand to push the top button of the pen down all the way to inject the insulin. 6.Let go of the skin that you are pinching. Continue to hold the pen in place with your writing hand. 7.Wait 10 seconds, then pull the needle straight out of the skin. This will allow all of the insulin to go from the pen and needle into your body. 8.Carefully put the larger (outer) plastic cover of the needle back over the needle, then unscrew the capped needle and discard it in a sharps container, such as an empty plastic bottle with a cover. 9.Put the plastic cap back on the insulin pen. How to throw away supplies Discard all used needles in a puncture-proof sharps disposal container. You can ask your local pharmacy about where you can get this kind of disposal container, or you can use an empty plastic liquidlaundry detergent bottle that has a cover. Follow the disposal regulations for the area where you live. Do not use any needle more than one time. Throw away empty disposable pens in the regular trash. Questions to ask your health care provider How often should I be taking insulin? How often should I check my blood glucose? What amount of insulin should I be taking at each time? What are the side effects? What should I do if my blood glucose is too high? What should I do if my blood glucose is too low? What should I do if I forget to take my insulin? What number should I call if I have questions? Where to find more information [place] [employer] (ADA): www.diabetes.org [place] [employer] (AADE) Patient Resources: https://www.diabeteseducator.org Summary A subcutaneous injection is a shot of medicine that is injected into the layer of fat and tissue between skin and muscle. Before you give yourself an insulin injection, be sure to test your blood sugar level (blood glucose level) and write down that number. Check the expiration date and the type of insulin that is in the pen. The type of insulin that you take may determine how many injections you give yourself and when you need to give the injections. It is best to inject insulin into the same body area each time (for example, always in the abdomen), but you should use a different spot in that area for each injection. This information is not intended to replace advice given to you by your health care provider. Make sure you discuss any questions you have with your health care provider. Document Released: 10/10/2016 Document Revised: 09/27/2018 Document Reviewed: 10/10/2016 [employer] Patient Education 2020 [employer]. 02/04/2022 09:01:22 Smoking Tobacco Information, Adult Smoking Tobacco Information, Adult Smoking tobacco can be harmful to your health. Tobacco contains a poisonous (toxic), colorless chemical called nicotine. Nicotine is addictive. It changes the brain and can make it hard to stop smoking. Tobacco also has other toxic chemicals that can hurt your body and raise your risk of many cancers. How can smoking tobacco affect me? Smoking tobacco puts you at risk for: Cancer. Smoking is most commonly associated with lung cancer, but can also lead to cancer in other parts of the body. Chronic obstructive pulmonary disease (COPD). This is a long-term lung condition that makes it hardto breathe. It also gets worse over time. High blood pressure (hypertension), heart disease, stroke, or heart attack. Lung infections, such as pneumonia. Cataracts. This is when the lenses in the eyes become clouded. Digestive problems. This may include peptic ulcers, heartburn, and gastroesophageal reflux disease (GERD). Oral health problems, such as gum disease and tooth loss. Loss of taste and smell. Smoking can affect your appearance by causing: Wrinkles. Yellow or stained teeth, fingers, and fingernails. Smoking tobacco can also affect your social life, because: It may be challenging to find places to smoke when away from home. Many workplaces, restaurants, hotels, and public places are tobacco-free. Smoking is expensive. This is due to the cost of tobacco and the long-term costs of treating healthproblems from smoking. Secondhand smoke may affect those around you. Secondhand smoke can cause lung cancer, breathing problems, and heart disease. Children of smokers have a higher risk for: ?Sudden infant syndrome (SIDS). ?Ear infections. ?Lung infections. If you currently smoke tobacco, quitting now can help you: Lead a longer and healthier life. Look, smell, breathe, and feel better over time. Save money. Protect others from the harms of secondhand smoke. What actions can I take to prevent health problems? Quit smoking Do not start smoking. Quit if you already do. Make a plan to quit smoking and commit to it. Look for programs to help you and ask your health care provider for recommendations and ideas. Set a date and write down all the reasons you want to quit. Let your friends and family know you are quitting so they can help and support you. Consider finding friends who also want to quit. It can be easier to quit with someone else, so that you can supporteach other. Talk with your health care provider about using nicotine replacement medicines to help you quit, such as gum, lozenges, patches, sprays, or pills. Do not replace cigarette smoking with electronic cigarettes, which are commonly called e-cigarettes. The safety of e-cigarettes is not known, and some may contain harmful chemicals. If you try to quit but return to smoking, stay positive. It is common to slip up when you first quit, so take it one day at a time. Be prepared for cravings. When you feel the urge to smoke, chew gum or suck on hard candy. Lifestyle Stay busy and take care of your body. Drink enough fluid to keep your urine pale yellow. Get plenty of exercise and eat a healthy diet. This can help prevent weight gain after quitting. Monitor your eating habits. Quitting smoking can cause you to have a larger appetite than when you smoke. Find ways to relax. Go out with friends or family to a movie or a restaurant where people do not smoke. Ask your health care provider about having regular tests (screenings) to check for cancer. This mayinclude blood tests, imaging tests, and other tests. Find ways to manage your stress, such as meditation, yoga, or exercise. Where to find support To get support to quit smoking, consider: Asking your health care provider for more information and resources. Taking classes to learn more about quitting smoking. Looking for local organizations that offer resources about quitting smoking. Joining a support group for people who want to quit smoking in your local community. Calling the smokefree.gov counselor helpline: 9-649-Ixhu-Now ( ) Where to find more information You may find more information about quitting smoking from: HelpGuide.org: www.helpguide.org Smokefree.gov: smokefree.gov [place] [employer]: www.lung.org Contact a health care provider if you: Have problems breathing. Notice that your lips, nose, or fingers turn blue. Have chest pain. Are coughing up blood. Feel faint or you pass out. Have other health changes that cause you to worry. Summary Smoking tobacco can negatively affect your health, the health of those around you, your finances, and your social life. Do not start smoking. Quit if you already do. If you need help quitting, ask your health care provider. Think about joining a support group for people who want to quit smoking in your local community. There are many effective programs that will help you to quit this behavior. This information is not intended to replace advice given to you by your health care provider. Make sure you discuss any questions you have with your health care provider. Document Released: 09/22/2017 Document Revised: 10/27/2018 Document Reviewed: 09/22/2017 [employer] Patient Education 2020 [employer] Follow Up Care 12/26/2021 14:22:08 With:[facility] Address: [address] [place] [address]- [phone] When: Unknown Comments:[facility] will provide your home oxygen and equipment. If you have questions related to home oxygen, please call [phone]. With:MARVIN WHEELER Address: [address] [place] [address]- [phone] Business (1) When: Unknown Comments:Call for appointment after discharge With:MELVIN BARBOSA Address: [address] [facility] [address] [facility] [place] [address]- When:02/11/2022 09:19:00 Comments:Labs and chest x-ray with office visit With:ABISAI HERNANDEZ Address: [address] [place] [address] [address] [place] [address]- [phone] Business (1) When:02/11/2022 14:30:00 With:DIPESH OLIVAS MD Address: [address] [place] [phone] When:02/20/2022 14:15:00 Comments:THIS APPOINTMENT WILL BE WITH JAIRO ALMODOVAR With:LATASHA MORGAN MD Address: [address] [place] [address] [address] [facility] [address]- When:02/25/2022 13:00:00 Comments:THE APPOINTMENT SCHEDULED ON 01/29 HAS BEEN CANCELLED. With:Post home RN DC follow up visit scheduled for visit # 1 02/10 between 12p-4p Visit # 2 scheduled for02/13 between 12p-4p Address:Unknown When: Unknown With:Gilda Sarkar, [facility] will call you and/or your family [facility] Office hours: 8am-4:30pm Thursday-Thursday. . Email: [email or web address] Address:Unknown When: Unknown With:[facility] Address: [address] [facility] [place] [address]- When: Unknown Comments:The Cardiac Rehab department will call you in 6 weeks to schedule you for phase 2. We left you a brochure with information about cardiac rehab. If you have any questions please call [phone]. [facility] 05-09-2022 Evaluation + Plan noteExtracted from: Title:History and Physical Author:AMANDA SCHUSTER MD Date:01/27/22 1. Suspected coronary diseas e: Patient did suffer recent non-STEMI. Currently his primary symptoms are NYHA class II symptoms of dyspnea. He has multiple risk factors for underlying CAD. We will proceed with diagnostic coronary angiogram. Risks and benefits were discussed. Patient understands and agrees to proceed. Future Appointments Appointment Date:02/11/2022 02:30:00 PM Scheduled Provider:MELVIN BARBOSA Location:[facility] Appointment Type:CTS OV Post Op Appointment Date:02/25/2022 01:00:00 PM Scheduled Provider: Location:[facility] Appointment Type:CV OV Hospital Follow Up Future Scheduled Tests Radiology* CT Coronary Angiography w+w/o Contrast 02/21/21 [facility] evaluation + Plan note Future Appointments Appointment Date:02/25/2022 01:00:00 PM Scheduled Provider: Location:[facility] Appointment Type:CV OV Hospital Follow Up Appointment Date:02/25/2022 01:00:00 PM Scheduled Provider:MELVIN BARBOSA Location:[facility] Appointment Type:CTS OV Post Op Follow Up Future Scheduled Tests Laboratory* Basic Metabolic Panel 02/11/22 Radiology* XR Chest 2 Views (PA & Lateral) 02/25/22 * CT Coronary Angiography w+w/o Contrast 02/21/21 [facility] evaluation + Plan note Future Appointments Appointment Date:02/25/2022 01:00:00 PM Scheduled Provider: Location:[facility] Appointment Type:CV OV Hospital Follow Up Appointment Date:03/10/2022 01:30:00 PM Scheduled Provider:MELVIN BARBOSA Location:[facility] Appointment Type:CTS OV Post Op Follow Up Future Scheduled Tests Laboratory* Basic Metabolic Panel 02/11/22 [facility] evaluation + Plan note Future Appointments Appointment Date:07/15/2022 04:00:00 PM Scheduled Provider:DEVONTE HAWK MD Location:[facility] Appointment Type:CTS OV Appointment Date:07/24/2022 03:45:00 PM Scheduled Provider: Location:[facility] Appointment Type:CV OV Future Scheduled Tests Laboratory* Basic Metabolic Panel 02/11/22 * Hepatic Function Panel 06/06/22 * Hepatic Function Panel 02/25/22 * Hepatic Function Panel 04/24/22 * CPK 06/06/22 * Lipid Profile 06/06/22 * Lipid Profile 02/25/22 * Lipid Profile 04/24/22 Radiology* XR Chest 2 Views (PA & Lateral) 04/07/22 * XR Chest 2 Views (PA & Lateral) 07/15/22 [facility] Evaluation + Plan note Future Appointments Appointment Date:07/24/2022 03:45:00 PM Scheduled Provider: Location:[facility] Appointment Type:CV OV Future Scheduled Tests Laboratory* Basic Metabolic Panel 02/11/22 * Hepatic Function Panel 06/06/22 * Hepatic Function Panel 02/25/22 * Hepatic Function Panel 04/24/22 * CPK 06/06/22 * Lipid Profile 06/06/22 * Lipid Profile 02/25/22 * Lipid Profile 04/24/22 Radiology* XR Chest 2 Views (PA & Lateral) 04/07/22 [facility] Evaluation noteNo assessment information available [facility] Work Phone: Evaluation note* Diagnosis Chronic obstructive pulmonary disease, unspecified COPD type (HCC) [facility] N[facility]ative No data available for this section [facility] Hospital Discharge instructions No data available for this section [facility] Progress note No data available for this section [facility] Reason for visit Narrative* Procedure Authorization (Routine) - Closed Specialty Diagnoses / Procedures Referred By Contac t Referred To Contact [facility] Diagnoses Chronic obstructive pulmonary disease, unspecified COPD type (HCC) Procedures Echocardiogram Complete with Contrast Echocardiogram complete (M-Mode/2D) Chris Gasca [address] [place] [address] Phone: tel: [employer] [address] [place] [phone] Phone: tel: Referral ID Status Reason Start Date Expiration Date Visits Re quested Visits Authorized [id number] Closed 10/12/2024 10/12/2024 1 1 [facility] Summary Purpose Family History No Family History Records Found Relationship Condition Age at Onset Recorded Date/T maxime mother Malignant neoplasm Unknown Advance Directives No Advanced Directives Records FoundNo Advanced Directives Records FoundNo Advanced Directives Records FoundNo Advanced Directives Records FoundNo Advanced Directives Records FoundNo Advanced Directives Records Found Chief Complaint and Reason for Visit Chief Complaint LEFT RIB PAIN Chief Complaint Admit Date Diabetes October 31, 2024 2:20pm 2 M FU November 01, 2024 1:10pm 6 Wk FU December 12, 2024 1:2 3pm 3 M FU December 14, 2024 12: 49pm RIGHT HIP January 18, 2025 12: 55pm Room 1 January 18, 2025 2:2 0pm BILATERAL WRISTS January 19, 2025 1:16pm 6 Wk FU January 30, 2025 1:44p m BAD HEARTBURN February 22, 2025 10:20 am Discuss Nueropathy February 24, 2025 10:15 am Reason for Visit Admit Date Dyslipidemia October 31, 2024 2:20pm High triglycerides October 31, 2024 2:20pm Hypertension October 31, 2024 2:20pm Neuropathy October 31, 2024 2:20pm Obesity October 31, 2024 2:20pm Type 2 diabetes mellitus October 31, 2024 2:20pm Diabetic neuropathy associat ed with diabetes mellitus due to underlying November 01, 2024 1:10pm Right hip pain November 01, 2024 1:10pm COPD (chronic obstructive pulmonary dise ase) November 01, 2024 1:10pm Dyslipidemia December 12, 2024 1:2 3pm GERD (gastroesophageal reflux disease) M [facility] 2024 1:23pm High triglycerides December 12, 2024 1:2 3pm Hypertension December 12, 2024 1:2 3pm Neuropathy December 12, 2024 1:2 3pm Nicotine dependence December 12, 2024 1:2 3pm Obesity December 12, 2024 1:2 3pm Type 2 diabetes mellitus December 12 1:23pm Diabetic neuropathy associat ed with diabetes mellitus due to underlying December 14, 2024 12:49pm Degenerative disc disease, lumbar January 18, 2025 12:55pm Greater trochanteric bursitis of right h ip January 18, 2025 12:55pm Carpal tunnel syndrome on both sides January 19, 2025 1:16pm Dyslipidemia January 30, 2025 1:44p m High triglycerides January 30, 2025 1:44p m Hypertension January 30, 2025 1:44p m Neuropathy January 30, 2025 1:44p m Obesity January 30, 2025 1:44p m Tobacco abuse January 30, 2025 1:44p m Type 2 diabetes mellitus January 30, 2025 1:44pm Degenerative disc disease, lumbar February 222024 10:20am GERD (gastroesophageal reflux disease) J 2024 10:20am Chief Complaint Admit Date 6 Wk FU December 12, 2024 1:2 3pm 3 M FU December 14, 2024 12: 49pm RIGHT HIP January 18, 2025 12: 55pm Room 1 January 18, 2025 2:2 0pm BILATERAL WRISTS January 19, 2025 1:16pm 6 Wk FU January 30, 2025 1:44p m BAD HEARTBURN February 22, 2025 10:20 am Discuss Nueropathy February 24, 2025 10:15 am BILATERAL WRISTS March 02, 2025 10:3 0am Reason for Visit Admit Date Dyslipidemia December 12, 2024 1:2 3pm GERD (gastroesophageal reflux disease) M 2024 1:23pm High triglycerides December 12, 2024 1:2 3pm Hypertension December 12, 2024 1:2 3pm Neuropathy December 12, 2024 1:2 3pm Nicotine dependence December 12, 2024 1:2 3pm Obesity December 12, 2024 1:2 3pm Type 2 diabetes mellitus December 12 1:23pm Diabetic neuropathy associat ed with diabetes mellitus due to underlying December 14, 2024 12:49pm Degenerative disc disease, lumbar January 18, 2025 12:55pm Greater trochanteric bursitis of right h ip January 18, 2025 12:55pm Carpal tunnel syndrome on both sides January 19, 2025 1:16pm Dyslipidemia January 30, 2025 1:44p m High triglycerides January 30, 2025 1:44p m Hypertension January 30, 2025 1:44p m Neuropathy January 30, 2025 1:44p m Obesity January 30, 2025 1:44p m Tobacco abuse January 30, 2025 1:44p m Type 2 diabetes mellitus January 30, 2025 1:44pm Degenerative disc disease, lumbar February 222024 10:20am GERD (gastroesophageal reflux disease) J une 2024 10:20am Neuropathy February 24, 2025 10:15 am Carpal tunnel syndrome on both sides Zak e 2024 10:30am Chief Complaint Admit Date Diabetes October 31, 2024 2:20pm 2 M FU November 01, 2024 1:10pm 6 Wk FU December 12, 2024 1:2 3pm 3 M FU December 14, 2024 12: 49pm RIGHT HIP January 18, 2025 12: 55pm Room 1 January 18, 2025 2:2 0pm BILATERAL WRISTS January 19, 2025 1:16pm 6 Wk FU January 30, 2025 1:44p m BAD HEARTBURN February 22, 2025 10:20 am Chief Complaint Admit Date 6 Wk FU December 12, 2024 1:2 3pm 3 M FU December 14, 2024 12: 49pm RIGHT HIP January 18, 2025 12: 55pm Room 1 January 18, 2025 2:2 0pm BILATERAL WRISTS January 19, 2025 1:16pm 6 Wk FU January 30, 2025 1:44p m BAD HEARTBURN February 22, 2025 10:20 am Discuss Nueropathy February 24, 2025 10:15 am BILATERAL WRISTS March 02, 2025 10:3 0am SURG CLEARANCE March 21, 2025 11:20 am Reason for Visit Admit Date Dyslipidemia December 12, 2024 1:2 3pm GERD (gastroesophageal reflux disease) M arch 2024 1:23pm High triglycerides December 12, 2024 1:2 3pm Hypertension December 12, 2024 1:2 3pm Neuropathy December 12, 2024 1:2 3pm Nicotine dependence December 12, 2024 1:2 3pm Obesity December 12, 2024 1:2 3pm Type 2 diabetes mellitus December 12 1:23pm Diabetic neuropathy associat ed with diabetes mellitus due to underlying December 14, 2024 12:49pm Degenerative disc disease, lumbar January 18, 2025 12:55pm Greater trochanteric bursitis of right h ip January 18, 2025 12:55pm Carpal tunnel syndrome on both sides January 19, 2025 1:16pm Dyslipidemia January 30, 2025 1:44p m High triglycerides January 30, 2025 1:44p m Hypertension January 30, 2025 1:44p m Neuropathy January 30, 2025 1:44p m Obesity January 30, 2025 1:44p m Tobacco abuse January 30, 2025 1:44p m Type 2 diabetes mellitus January 30, 2025 1:44pm Degenerative disc disease, lumbar February 222024 10:20am GERD (gastroesophageal reflux disease) J 2024 10:20am Neuropathy February 24, 2025 10:15 am Carpal tunnel syndrome on both sides Feb 10:30am Carpal tunnel syndrome on both sides Mar 11:20am Diabetic neuropathy associat ed with diabetes mellitus due to underlying March 21, 2025 11:20am Muscle cramps March 21, 2025 11:20 am Asthma-COPD overlap syndrome March 21, 025 11:20am Coronary artery disease March 21, 2025 1 1:20am High triglycerides March 21, 2025 11:20 am Hypertension March 21, 2025 11:20 am Type 2 diabetes mellitus March 21, 2025 11:20am Chief Complaint Admit Date 6 Wk FU December 12, 2024 1:2 3pm 3 M FU December 14, 2024 12: 49pm RIGHT HIP January 18, 2025 12: 55pm Room 1 January 18, 2025 2:2 0pm BILATERAL WRISTS January 19, 2025 1:16pm 6 Wk FU January 30, 2025 1:44p m BAD HEARTBURN February 22, 2025 10:20 am Discuss Nueropathy February 24, 2025 10:15 am BILATERAL WRISTS March 02, 2025 10:3 0am SURG CLEARANCE March 21, 2025 11:20 am INT LAB ORDERS March 21, 2025 12:08 pm 6 W FU March 23, 2025 11:42 am Reason for Visit Admit Date Dyslipidemia December 12, 2024 1:2 3pm GERD (gastroesophageal reflux disease) M arch 2024 1:23pm High triglycerides December 12, 2024 1:2 3pm Hypertension December 12, 2024 1:2 3pm Neuropathy December 12, 2024 1:2 3pm Nicotine dependence December 12, 2024 1:2 3pm Obesity December 12, 2024 1:2 3pm Type 2 diabetes mellitus December 12 1:23pm Diabetic neuropathy associat ed with diabetes mellitus due to underlying December 14, 2024 12:49pm Degenerative disc disease, lumbar January 18, 2025 12:55pm Greater trochanteric bursitis of right h ip January 18, 2025 12:55pm Carpal tunnel syndrome on both sides January 19, 2025 1:16pm Dyslipidemia January 30, 2025 1:44p m High triglycerides January 30, 2025 1:44p m Hypertension January 30, 2025 1:44p m Neuropathy January 30, 2025 1:44p m Obesity January 30, 2025 1:44p m Tobacco abuse January 30, 2025 1:44p m Type 2 diabetes mellitus January 30, 2025 1:44pm Degenerative disc disease, lumbar February 222024 10:20am GERD (gastroesophageal reflux disease) J une 2024 10:20am Neuropathy February 24, 2025 10:15 am Carpal tunnel syndrome on both sides Zak e 2024 10:30am Carpal tunnel syndrome of right wrist Ju 2024 11:20am Carpal tunnel syndrome on both sides Mar 11:20am Diabetic neuropathy associat ed with diabetes mellitus due to underlying March 21, 2025 11:20am Muscle cramps March 21, 2025 11:20 am Asthma-COPD overlap syndrome March 21, 11:20am Coronary artery disease March 21, 2025 1 1:20am High triglycerides March 21, 2025 11:20 am Hypertension March 21, 2025 11:20 am Smoking greater than 20 pack years March 21, 2025 11:20am Type 2 diabetes mellitus March 21, 2025 11:20am Reason for Visit Admit Date Dyslipidemia December 12, 2024 1:2 3pm GERD (gastroesophageal reflux disease) M arch 2024 1:23pm High triglycerides December 12, 2024 1:2 3pm Hypertension December 12, 2024 1:2 3pm Neuropathy December 12, 2024 1:2 3pm Nicotine dependence December 12, 2024 1:2 3pm Obesity December 12, 2024 1:2 3pm Type 2 diabetes mellitus December 12 1:23pm Diabetic neuropathy associat ed with diabetes mellitus due to underlying December 14, 2024 12:49pm Degenerative disc disease, lumbar January 18, 2025 12:55pm Greater trochanteric bursitis of right h ip January 18, 2025 12:55pm Carpal tunnel syndrome on both sides January 19, 2025 1:16pm Dyslipidemia January 30, 2025 1:44p m High triglycerides January 30, 2025 1:44p m Hypertension January 30, 2025 1:44p m Neuropathy January 30, 2025 1:44p m Obesity January 30, 2025 1:44p m Tobacco abuse January 30, 2025 1:44p m Type 2 diabetes mellitus January 30, 2025 1:44pm Degenerative disc disease, lumbar February 222024 10:20am GERD (gastroesophageal reflux disease) J une 2024 10:20am Neuropathy February 24, 2025 10:15 am Carpal tunnel syndrome on both sides Zak e 2024 10:30am Carpal tunnel syndrome of right wrist Ju 2024 11:20am Carpal tunnel syndrome on both sides Mar 11:20am Diabetic neuropathy associat ed with diabetes mellitus due to underlying March 21, 2025 11:20am Muscle cramps March 21, 2025 11:20 am Asthma-COPD overlap syndrome March 21 11:20am Coronary artery disease March 21, 2025 1 1:20am High triglycerides March 21, 2025 11:20 am Hypertension March 21, 2025 11:20 am Smoking greater than 20 pack years March 21, 2025 11:20am Type 2 diabetes mellitus March 21, 2025 11:20am Dyslipidemia March 23, 2025 11:42 am Hypertension March 23, 2025 11:42 am Obesity March 23, 2025 11:42 am Polyneuropathy March 23, 2025 11:42 am Tobacco abuse March 23, 2025 11:42 am Type 2 diabetes mellitus March 23, 2025 11:42am Additional Source Comments (unrecognized sect ion and content) No Status Records FoundNo Status Records FoundNo Status Records FoundNo Status Records FoundNo Status Records FoundNo Status Records Found INFORMATION SOURCE (unrecogn ized section and content) DATE CREATED AUTHOR 01/03/2021 [facility] DATE CREATED AUTHOR AUTHOR'S ORGANIZ ATION 07/19/2022 [facility] ([place]) DATE CREATED AUTHOR AUTHOR'S ORGANIZ ATION 10/14/2024 [facility] DATE CREATED AUTHOR AUTHOR'S ORGANIZ ATION 01/12/2025 [facility] DATE CREATED AUTHOR AUTHOR'S ORGANIZ ATION 03/31/2025 [facility] DATE CREATED AUTHOR AUTHOR'S ORGANIZ ATION 03/31/2025 [facility] Care Team (unrecognized sect ion and content) Team Status: Active Member Role Status Dates Dr. Gem Albarran MD Family Provider Active Abisai Hernandez PROGRAM SERVICES ASSISTANT, PROGRAM SERVICES ASSISTANT-C Primary Care Provider Active Team Status: Inactive Member Role Status Dates Abisai Hernandez PROGRAM SERVICES ASSISTANT, PROGRAM SERVICES ASSISTANT-C Primary Care Provider Active Ed Physician Provider Emergency Provider Active Team Status: Active Member Role Status Dates Dr. Gilson Hawk DO Primary Care Provider Active Team Status: Inactive Member Role Status Dates Dr. Gilson Hawk DO Primary Care Provider Active Start: October 31, 2024 End: October 31, 2024 Dr. Gilson Hawk DO Referring Provider Active Start: October 31, 2024 End: October 31, 2024 DARIUS Grace Attending Provider Active Start: October 31, 2024 End: October 31, 2024 Team Status: Inactive Member Role Status Dates Dr. Gilson Hawk DO Primary Care Provider Active Start: November 01, 2024 End: November 01, 2024 Dr. Gilson Hawk DO Attending Provider Active Start: November 01, 2024 End: November 01, 2024 Dr. Gilson Hawk DO Referring Provider Active Start: November 01, 2024 End: November 01, 2024 Team Status: Inactive Member Role Status Dates Dr. Gilson Hawk DO Primary Care Provider Active Start: December 12, 2024 End: December 12, 2024 Dr. Gilson Hawk DO Referring Provider Active Start: December 12, 2024 End: December 12, 2024 DARIUS Grace Attending Provider Active Start: December 12, 2024 End: December 12, 2024 Team Status: Inactive Member Role Status Dates Dr. Gilson Hawk DO Primary Care Provider Active Start: December 14, 2024 End: December 14, 2024 Dr. Gilson Hawk DO Referring Provider Active Start: December 14, 2024 End: December 14, 2024 Dr. Weston Caro MD Attending Provider Active Start: December 14, 2024 End: December 14, 2024 Team Status: Inactive Member Role Status Dates Dr. Gilson Hawk DO Primary Care Provider Active Start: January 18, 2025 End: January 18, 2025 Dr. Gilson Hawk DO Referring Provider Active Start: January 18, 2025 End: January 18, 2025 Dr. Weston Browne DO Attending Provider Active Start: January 18, 2025 End: January 18, 2025 Team Status: Inactive Member Role Status Dates Dr. Gilson Hawk DO Primary Care Provider Active Start: January 18, 2025 End: January 18, 2025 Dr. Sanchez Kaminski MD Attending Provider Active S tart: January 18, 2025 End: January 18, 2025 Team Status: Inactive Member Role Status Dates Dr. Gilson Hawk DO Primary Care Provider Active Start: January 19, 2025 End: January 19, 2025 Dr. Gilson Hawk DO Referring Provider Active Start: January 19, 2025 End: January 19, 2025 Jim Self MD Attending Provider Active St art: January 19, 2025 End: January 19, 2025 Team Status: Inactive Member Role Status Dates Dr. Gilson Hawk DO Primary Care Provider Active Start: January 30, 2025 End: January 30, 2025 Dr. Gilson Hawk DO Referring Provider Active Start: January 30, 2025 End: January 30, 2025 DARIUS Grace Attending Provider Active Start: January 30, 2025 End: January 30, 2025 Team Status: Inactive Member Role Status Dates Dr. Gilson Hawk DO Primary Care Provider Active Start: February 22, 2025 End: February 22, 2025 Dr. Gilson Hawk DO Attending Provider Active Start: February 22, 2025 End: February 22, 2025 Dr. Gilson Hawk DO Referring Provider Active Start: February 22, 2025 End: February 22, 2025 Team Status: Inactive Member Role Status Dates Dr. Gilson Hawk DO Primary Care Provider Active Start: February 24, 2025 End: February 24, 2025 Dr. Gilson Hawk DO Referring Provider Active Start: February 24, 2025 End: February 24, 2025 Dr. Weston Caro MD Attending Provider Active Start: February 24, 2025 End: February 24, 2025 Team Status: Inactive Member Role Status Dates Dr. Gilson Hawk DO Primary Care Provider Active Start: March 02, 2025 End: March 02, 2025 Dr. Gilson Hawk DO Referring Provider Active Start: March 02, 2025 End: March 02, 2025 Jim Self MD Attending Provider Active St art: March 02, 2025 End: March 02, 2025 Team Status: Active Member Role/Relationship Status Dates Dr. Gilson Hawk DO Primary Care Provider Active Team Status: Inactive Member Role/Relationship Status Dates Dr. Gilson Hawk DO Primary Care Provider Active Start: December 12, 2024 End: December 12, 2024 Dr. Gilson Hawk DO Referring Provider Active Start: December 12, 2024 End: December 12, 2024 DARIUS Grace Attending Provider Active Start: December 12, 2024 End: December 12, 2024 Team Status: Inactive Member Role/Relationship Status Dates Dr. Gilson Hawk DO Primary Care Provider Active Start: December 14, 2024 End: December 14, 2024 Dr. Gilson Hawk DO Referring Provider Active Start: December 14, 2024 End: December 14, 2024 Dr. Weston Caro MD Attending Provider Active Start: December 14, 2024 End: December 14, 2024 Team Status: Inactive Member Role/Relationship Status Dates Dr. Gilson Hawk DO Primary Care Provider Active Start: January 18, 2025 End: January 18, 2025 Dr. Gilson Hawk DO Referring Provider Active Start: January 18, 2025 End: January 18, 2025 Dr. Weston Browne DO Attending Provider Active Start: January 18, 2025 End: January 18, 2025 Team Status: Inactive Member Role/Relationship Status Dates Dr. Gilson Hawk DO Primary Care Provider Active Start: January 18, 2025 End: January 18, 2025 Dr. Sanchez Kaminski MD Attending Provider Active S tart: January 18, 2025 End: January 18, 2025 Team Status: Inactive Member Role/Relationship Status Dates Dr. Gilson Hawk DO Primary Care Provider Active Start: January 19, 2025 End: January 19, 2025 Dr. Gilson Hawk DO Referring Provider Active Start: January 19, 2025 End: January 19, 2025 Jim Self MD Attending Provider Active St art: January 19, 2025 End: January 19, 2025 Team Status: Inactive Member Role/Relationship Status Dates Dr. Gilson Hawk DO Primary Care Provider Active Start: January 30, 2025 End: January 30, 2025 Dr. Gilson Hawk DO Referring Provider Active Start: January 30, 2025 End: January 30, 2025 DARIUS Grace Attending Provider Active Start: January 30, 2025 End: January 30, 2025 Team Status: Inactive Member Role/Relationship Status Dates Dr. Gilson Hawk DO Primary Care Provider Active Start: February 22, 2025 End: February 22, 2025 Dr. Gilson Hawk DO Attending Provider Active Start: February 22, 2025 End: February 22, 2025 Dr. Gilson Hawk DO Referring Provider Active Start: February 22, 2025 End: February 22, 2025 Team Status: Inactive Member Role/Relationship Status Dates Dr. Gilson Hawk DO Primary Care Provider Active Start: February 24, 2025 End: February 24, 2025 Dr. Gilson Hawk DO Referring Provider Active Start: February 24, 2025 End: February 24, 2025 Dr. Weston Caro MD Attending Provider Active Start: February 24, 2025 End: February 24, 2025 Team Status: Inactive Member Role/Relationship Status Dates Dr. Gilson Hawk DO Primary Care Provider Active Start: March 02, 2025 End: March 02, 2025 Dr. Gilson Hawk DO Referring Provider Active Start: March 02, 2025 End: March 02, 2025 Jim Self MD Attending Provider Active St art: March 02, 2025 End: March 02, 2025 Team Status: Inactive Member Role/Relationship Status Dates Dr. Gilson Hawk DO Primary Care Provider Active Start: March 21, 2025 End: March 21, 2025 Dr. Gilson Hawk DO Attending Provider Active Start: March 21, 2025 End: March 21, 2025 Dr. Gilson Hawk DO Referring Provider Active Start: March 21, 2025 End: March 21, 2025 Team Status: Active Member Role/Relationship Status Dates Dr. Gilson Hawk DO Primary Care Provider Active Start: March 21, 2025 Dr. Gilson Hawk DO Attending Provider Active Start: March 21, 2025 Dr. Gilson Hawk DO Referring Provider Active Start: March 21, 2025 Team Status: Inactive Member Role/Relationship Status Dates Dr. Gilson Hawk DO Primary Care Provider Active Start: March 23, 2025 End: March 23, 2025 Dr. Gilson Hawk DO Referring Provider Active Start: March 23, 2025 End: March 23, 2025 Dr. Modesto Finney MD Attending Provider Active Sta rt: March 23, 2025 End: March 23, 2025 Team Status: Inactive Member Role/Relationship Status Dates Dr. Gilson Hawk DO Primary Care Provider Active Start: March 21, 2025 End: March 21, 2025 Dr. Gilson Hawk DO Attending Provider Active Start: March 21, 2025 End: March 21, 2025 Dr. Gilson Hawk DO Referring Provider Active Start: March 21, 2025 End: March 21, 2025 Care Team (unrecognized sect ion and content) Care Team Personnel Name: ABISAI HERNANDEZ Member Role: Primary Care Physician Address: Address: [address] [place] [address] Care Team Related Persons Name: YULI GARCIA Address: [address] [phone] Care Team Personnel Name: ABISAI HERNANDEZ APRN-PERSONNEL GENERALIST MANAGER Member Role: Primary Care Physician Address: Address: [address] [place] [address] Care Team Related Persons Name: YULI GARCIA Address: [address] [phone] Goals (unrecognized section and content) Goals may be documented in a n alternate section FOR RECORDS PERTAINING TO PATIENTS WHO ARE OR HAVE BEEN ENROLLED IN A CHEMICAL DEPENDENCY/SUBSTANCEABUSE PROGRAM, SOME INFORMATION MAY BE OMITTED. This clinical summary was aggregated from multiple sources. Caution should be exercised in using it in the provision of clinical care. This summary normalizes information from multiple sources, and as a consequence, information in this document may materially change the coding, format and clinical context of patient data. In addition, data may be omitted in some cases. CLINICAL DECISIONS SHOULD BE BASED ON THE PRIMARY CLINICAL RECORDS. [employer] [facility]. provides no warranty or guarantee of the accuracy or completeness of information in this document.
--- OUTSIDE RECORDS SUMMARY | 2025-04-05 05:57 | XMS RPT_ITS | CCD ---
Author Organization [facility] Care Team Providers Care Sales Representatives Name Role Phone Alexis PHOTO EDITOREbony Unavailable [phone] MARY ANALYST COMPETITIVE INTELLIGENCE-JAIRO, ABISAI Scott Primary Care Physicia n MARY GILL, ABISAI Scott Primary Care Unavailabl anna WHEELER MD, MARVIN Consulting Unavailchrist HAWK MD, DEVONTE Attending Unavailable HEAVEN CAIN MD, AMANDA Admitting Unavail able NABEEL JIN, NAWAF Consulting Unavailab pastor ALVARADO DO, PAULINO Consulting Alexis HAWK MD, DEVONTE Consulting Unavailable MARY GILL, ABISAI Scott Primary Care Unavailabl e HEAVEN CAIN MD, AMANDA Attending Unavail able BARBOSA PHOTO EDITOR, MS. MELVIN Jones Attending Unavaila ble MARY [...] Gilson Hawk DO Primary Care Provider [phone] Dr. Gilson Hawk DO Referring Provider Kamron AGUIAR-CMyra Attending Provider [phone] Dr. Gilson Hawk DO Attending Provider Gordo JIN, Dr. Ontiveros Attending Provider Dr. Weston Browne DO Attending Provider Yamilex JIN, Dr. Bradford Attending Provider [phone] Jim Self MD Attending Provider [phone] Dr. Gilson Hawk DO Primary Care Provider [phone] Michael CHAMPION, Dr. Gilson Fairchild Referring Provider [phone] Kamron POT RELINER-C, Myra Attending Provider [phone] Michael CHAMPION, Dr. Gilson Fairchild Attending Provider Dr. Modesto Finney MD Attending Provider [phone] Jim Self Attending Unavailable Mollison, Jim Referring Unavailable Brown, Gilson R Primary Care Unavailable Weston Browne Attending Unavailable Brown, Gilson R Primary Care Unavailable Mary POT RELINER, Abisai Primary Care Unavailable Tavares Hawk Attending Unavailable Espinoza POT RELINER, Ebony Referring Unavailable Mollison, Jim Attending Unavailable Brown, Gilson R Referring Unavailable Brown, Gilson R Primary Care Unavailable Brown, Gilson R Attending Unavailable Brown, Gilson R Referring Unavailable Brown, Gilson R Primary Care Unavailable Espinoza POT RELINER, Ebony Attending Unavailable Brown, Gilson R Attending Unavailable Brown, Gilson R Referring Unavailable Brown, Gilson R Primary Care Unavailable Brown, Gilson R Referring Unavailable Brown, Gilson R Primary Care Unavailable Brown, Gilson R Attending Unavailable Espinoza POT RELINER, Ebony Referring Unavailable Espinoza POT RELINER, Ebony Attending Unavailable Brown, Gilson R Primary [...] Brown, Gilson R Primary Care Unavailable Mary POT RELINER, Abisai Primary Care Unavailable BrownTavares Attending Unavailable Espinoza POT RELINER, Ebony Referring Unavailable Espinoza POT RELINER, Ebony Consulting Unavailable Brown, Gilson R Attending [...] Unavailable Brown, Gilson R Referring Unavailable JessieruWeston wolfe Attending Unavailable Brown, Gilson R Primary Care Unavailable Brown, Gilson R Referring Unavailable Brown, Gilson R Attending Unavailable Brown, Gilson R Primary Care Unavailable Roof POT RELINER, Yenny H Attending Unavailable Roof POT RELINER, Yenny H Referring Unavailable Brown, Gilson R Primary Care Unavailable Weston Caro Attending Unavailable Brown, Gilson R Referring Unavailable Brown, Gilson R Primary Care Unavailable Mary POT RELINER, Abisai Primary Care Unavailable Mary POT RELINER, Abisai Referring Unavailable Alexis POT RELINER, Ebony Attending Unavailable Mary POT RELINER, Abisai Referring Unavailable Mary POT RELINER, Abisai Primary Care Unavailable Brown, Gilson R [...] Brown, Gilson R Primary Care Unavailable Mary POT RELINER, Abisai Primary Care Unavailable Alexis POT RELINER, Ebony Attending Unavailable Alexis POT RELINER, Ebony Referring Unavailable ABISAI HERNANDEZ CNP Primary Care Unavailable ABISAI HERNANDEZ CNP Consulting Unavailable ABISAI HERNANDEZ CNP Attending Unavailable ABISAI HERNANDEZ CNP Admitting Unavailable PROVIDER, UNKNOWN Consulting Unavailable PROVIDER, UNKNOWN Consulting Unavailable ABISAI HERNANDEZ CNP Consulting Unavailable ABISAI HERNANDEZ CNP Attending Unavailable ABISAI HERNANDEZ CNP Admitting Unavailable ABSIAI HERNANDEZ CNP Primary Care Unavailable PROVIDER, UNKNOWN [...] Bee/Wasp/Ant venom Allergy to substance swelling, lightheaded [facility] (7 sources) Bee pollen Drug Allergy 2 throat swelling [facility] (1 source) Bee pollen Drug allergy (disorder) 5 [facility] Repository NEGATED: Highlighted row has been ruled out! (1 source) Drug allergy [facility] NEGATED: Highlighted row has been ruled out! (1 source) Drug allergy [facility] NEGATED: Highlighted row has been ruled out! (1 source) Drug allergy [facility] NEGATED: Highlighted row has been ruled out! (1 source) Drug allergy [facility] NEGATED: Highlighted row has been ruled out! (1 source) Drug allergy [facility] NEGATED: Highlighted row has been ruled out! (1 source) Drug allergy [facility] Medications Current Medications Medication Drug Class(es) Dates Sig (Normalized) Sig (Original) acetaminophen 325 mg oral tablet (3 sources) Start: 02-11-2022 End: 03-10-2022 acetaminophen 325 mg oral tablet Dose : 650 mg = 2 tab(s), Oral, q4h, PRN Pain, scale 1-3, X 14 day(s), # 112 tab(s), 0 Refill(s), 03/10/22 15:41:00 EDT, Pharmacy: [facility], 185, cm, 01/27/22 8:29:00 EDT, Height, kg, 02/24/22 14:26:00 EDT, Dosing Weight Start Date: 02/24/22 Stop Date: 03/10/22 Status: Ordered Start: 02-06-2022 acetaminophen Dose : 650 mg = 2 tab(s), Oral, q4h, PRN Pain, scale 1-3, 0 Refill(s) Start Date: 02/06/22 Status: Ordered Albuterol-Budesonide (Airsup ra) 90-80 mcg/actuation HFA aerosol inhaler (20 sources) Start: 11-01-2024 Albuterol-[place] sonide (Airsupra) 90-80 mcg/actuation HFA aerosol inhaler Active 2 NMA INHALATION THREE TIMES A DAY as needed for shortness of breath 10.7 11 November 01, 2024 2:48pm as a single dose; may repeat up to 6 doses per day (12 inhalations) Start: 11-01-2024 Albuterol-[place] sonide (Airsupra) 90-80 mcg/actuation HFA aerosol inhaler [...] Daily, # 30 tab(s), 0 Refill(s), Pharmacy: [facility], 185.4jaydon, 12/26/21 13:36:00 EDT, Height Start Date: 12/26/21 Status: Ordered atorvastatin 20 mg oral tablet (16 sources) HMG-CoA Reductase Inhibitor Start: 12-26-2021 atorvastatin 80 mg oral tablet Dose : 80 mg = 1 tab(s), Oral, qDay, # 90 tab(s), 0 Refill(s), Pharmacy: [facility], 185.4, jaydon, 12/26/21 13:36:00 [...] mellitus Type 2 diabetes mellitus with hyperglycemia 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 (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 1 sensor q [...] use Start: 11-03-2022 take 1 puff(s) by [facility] twice daily Budesonide-Formoterol (Symbicort) [...] days, # 7 tab(s), 0 Refill(s), Pharmacy: [facility], 185, cm, 01/27/22 8:29:00 EDT, Height, kg, 02/11/22 14:07:00 EDT, Dosing Weight Start Date: 02/11/22 Stop Date: 02/18/22 Status: Ordered dextromethorphan hydrobromide 3 mg/ml / promethazine hydrochloride 1.25 mg/ml oral solution (12 sources) Phenothiazine, Uncompetitive G-pvtnou-E-aspartat e Receptor Antagonist, Sigma-1 Agonist Start: 11-01-2024 [...] qDay, # 30 tab(s), 2 Refill(s), Pharmacy: [facility], 185.4, cm, 04/24/22 13:47:00 [...] tab(s), 0 Refill(s), 03/10/22 15:41:00 EDT, Pharmacy: [facility], 185, cm, 01/27/22 8:29:00 [...] BID, # 15 mL, 0 Refill(s), Pharmacy: [facility], 185, cm, 01/27/22 8:29:00 EDT, [...] BID, # 360 tab(s), 0 Refill(s), Pharmacy: [facility], 185, cm, 01/27/22 8:29:00 EDT, [...] One tablet by mouth daily MONTELUKAST SODIUM [id number] Annabel Collins naproxen 500 mg oral tablet [...] supply, # 1 EA, 0 Refill(s), Pharmacy: [facility], Diabetes mellitus Hgb A1c 10.6%, [...] days, # 21 tab(s), 0 Refill(s), Pharmacy: [facility], 185, cm, 01/27/22 8:29:00 [...] Daily, # 30 tab(s), 3 Refill(s), Pharmacy: [facility], 185.4, cm, 04/24/22 13:47:00 [...] mellitus Type 2 diabetes mellitus with hyperglycemia 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 (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 for 4 weeks [...] q 4 hours PRN wheezing ALBUTEROL SULFATE [id number] Ebony Espinoza PHOTO EDITOR Start: 10-31-2015 take 2 puff(s) by in halation every four to six hours as needed for wheezing PROAIR HFA 108 (90 Base) MCG/ACT AERS 2 puffs INH q 4-6 hours PRN Wheezing ALBUTEROL SULFATE [id number] Ebony Espinoza PHOTO EDITOR Start: 03-14-2015 PROVENTIL HFA 108 (90 Base) MCG/ACT AERS 2 puffs every 4 hours ALBUTEROL SULFATE [id number] Ebony Espinoza PHOTO EDITOR Start: 03-13-2015 End: 03-14-2015 PROAIR HFA 108 (90 Base) MCG /ACT AERS ALBUTEROL SULFATE [id number] Annabel Collins ALBUTEROL SULFAT E (2.5 MG/3ML) 0.083% NEBU 1 inhalation Q 4-6 H ALBUTEROL SULFATE [id number] Annabel Collins End: 10-31-2015 VENTOLIN HFA 108 (90 Base) M CG/ACT AERS q 4 hrs prn ALBUTEROL SULFATE [id number] Suzie Ken MACHINE MILKER albuterol 0.833 mg/ml / ipratropium bromide 0.167 [...] pulmonary disease, unspecified Blood-Glucose,Rece iver,Cont (Dexcom G6 Director Channel) misc (6 sources) Start: 07-26-2024 End: 08-31-2024 Blood-Glucose,Receiv er,Cont (Dexcom G6 Director Channel) misc Discontinued 0 .Route 1 0 July 26, 2024 1:00am August 31, 2024 11:30am As directed Start: 07-26-2024 End: 08-31-2024 Blood-Glucose,Director Channel,Cont (Dexcom G6 Director Channel) misc Discontinued 0 .Route 1 July 26, 2024 1:00am August 31, 2024 11:30am As directed Blood-Glucose,Director Channel,Cont (Dexcom G7 Director Channel) misc (12 sources) Start: 08-31-2024 End: 12-12-2024 Blood-Glucose,Director Channel,Cont (Dexcom G7 Director Channel) misc Discontinued 0 .Route 1 0 August 31, 2024 11:30am December 12, 2024 2:07pm As directed Start: 08-31-2024 End: 12-12-2024 Blood-Glucose,Director Channel,Cont (Dexcom G7 Director Channel) misc Discontinued 0 .Route 1 August 31, 2024 11:30am December 12, 2024 2:07pm As directed Start: 07-26-2024 End: 08-31-2024 Blood-Glucose,Director Channel,Cont (Dexcom G7 Director Channel) misc Discontinued 0 .Route 1 0 July 26, 2024 1:00am August 31, 2024 11:30am As directed Start: 07-26-2024 End: 08-31-2024 Blood-Glucose,Director Channel,Cont (Dexcom G7 Director Channel) misc Discontinued 0 .Route 1 July 26, 2024 1:00am August 31, 2024 11:30am As directed Dfepkkgexk-Tzqqdizl-Iycibcvt ol (7 sources) Corticosteroid, beta2-Adrenergic Agonist Start: 09-05-2021 End: 01-10-2022 Scpktkechj-Otxjgvej-Wunjblri ol (Breztri Aerosphere) 160-9-4.8 mcg/actuation HFA aerosol inhaler Discontinued 2 NMA INHALATION TWICE A DAY 10.7 6 September 05, 2021 1:00am January 10, 2022 2:25pm Start: 09-05-2021 End: 01-10-2022 Ggvffkcujn-Sfdexmnp-Mnibiunv ol (Breztri Aerosphere) 160-9-4.8 mcg/actuation HFA aerosol inhaler Discontinued 2 NMA INHALATION TWICE A DAY 10.7 September 05, 2021 1:00am January 10, 2022 2:25pm Start: 09-05-2021 End: 01-10-2022 Emnojxddey-Inrlpalk-Xljxufzh ol (Breztri Aerosphere) 160-9-4.8 mcg/actuation HFA aerosol [...] 1 po twice daily prn CYCLOBENZAPRINE HCL [id number] Lino Agustin Dulaglutide (18 sources) GLP-1 Receptor Agonist Start: 11-21-2024 End: 03-02-2025 Dulaglutide (Trulicity) 4.5 mg/0.5 mL pen injector Discontinued 4.5 mg SC EVERY WEEK 2 November 21, 2024 1:56pm March 02, 2025 2:34pm Type 2 diabetes mellitus Type 2 diabetes mellitus with hyperglycemia 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 (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 Start: 11-21-2024 Dulaglutide [...] AEPB 1 puff inh Twice daily FLUTICASONE-SALMETEROL [id number] Ebony Espinoza PHOTO EDITOR 30 actuat fluticasone furoate 0.1 mg/actuat / [...] 4 MG TABS take as directed METHYLPREDNISOLONE [id number] Lino Agustin polyethylene glycol 3350 82708 mg powder for oral solution (13 sources) [...] One tablet by mouth daily TERBINAFINE HCL [id number] Annabel Collins 60 actuat tiotropium 0.0025 mg/actuat inhalation spray (20 sources) Anticholinergic Start: 01-10-2022 End: 05-19-2024 take 2.5 ug by inhalation once daily Tiotropium [place] (Spiriva Respimat) 2.5 mcg/actuation mist Discontinued 2 NMA INHALATION daily 3 3 August 31, 2023 3:45pm May 19, 2024 1:10pm Asthma-chronic obstructive pulmonary disease overlap syndrome Chronic obstructive pulmonary disease, unspecified administer at approximately the same time(s) each day Start: 01-10-2022 take 1 puff(s) by in halation once daily Tiotropium [place] (Spiriva Respimat) 2.5 mcg/actuation mist Active 2 PUFF INHALATION daily January 10, 2022 12:00am administer at approximately the same time(s) each day Start: 12-23-2021 Spiriva Respim at 10 ACT 2.5 mcg/inh inhalation aerosol 2 puff(s), Inhalation, qDay, 0 Refill(s) Start Date: 12/23/21 Status: Ordered Start: 05-14-2021 End: 09-05-2021 take 2.5 ug by inhalation once daily Tiotropium [place] (Spiriva Respimat) 2.5 mcg/actuation mist Discontinued 2 NMA INHALATION DAILY May 14, 2021 12:00am September 05, 2021 10:44am Start: 05-14-2021 End: 09-05-2021 take 1 puff(s) by inhalation once daily Tiotropium [place] (Spiriva Respimat) 2.5 mcg/actuation mist Discontinued 2 [...] tab(s), 0 Refill(s), 02/18/22 15:06:00 EDT, Pharmacy: [facility], Acute postoperative pain, 185, [...] Coronary atherosclerosis; Translations: [Atherosclerotic heart disease of [place] coronary artery without angina pectoris] Onset: 2 [...] Long-term current use of drug therapy; Translations: [USP (current) use of antithrombotics/antipla telets] Episodic Other aftercare (1 source) USP (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; Translations: [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 (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] Onset: 5 Episodic [...] Endocrinology Visit Reporton 03-23-2025 Endocrinology Visit Report [facility] [address] [place] [address] OFFICE VISIT Date of Service: 03/23/25 MR#: [id number] Acct: [id number] Name: YENNY GARCIA Rep #: [id number] : 1970 Provider: Zane Eckert Age/Sex: 54/M [place] [facility] [place]: Signed Intake Vital Signs 01/30/25 13:46 [...] 08/02/24 03/23/25 Rx 5/16 (Comfort EZ Pen [place]) guaifenesin 1,200 mg tablet, 1,200 mg PO [...] monitoring His (more content not included)... Normal [facility] MR/PAT.KONSTANTINon 03-22-2025 MR/PAT.[facility] Medical Records Department [address] [place] [address] PAT - Anesthesia 03/22/25 1755 MR#: [id number] Acct: [id number] Name: YENNY GARCIA Rep #: [id number] : 1970 54 From: Tiago Saavedra MD PCP: Dr. Gilson Hawk, DO Status:PRE IAC Y Race: C [place] [facility] [place]Assessment Diagnosis/Proposed Procedure Planned Operative Procedure(s): RIGHT ENODOSCOPIC CARPAL TUNNEL RELEASE Anesthesia History Anesthesia History - associate java developer: Anesthesia History - associate java developer Hx Hospitalization No 03/22/25 15:03 Any Problems [...] take am of surgery PONV PONV - associate java developer: PONV - associate java developer Female No 03/22/25 15:03 HX of Motion Sickness No 03/22/25 15:03 HX of N/V After Surgery No 03/22/25 15:03 Non-Smoker No 03/22/25 15:03 Duration of Surgery greater No 03/22/25 15:03 than 60 minutes Number of Risk Factors PONV Score Height Weight Height Weight: Anesthesia: Height Weight Height 6 ft 1 in 02/24/25 10:16 Respiratory Assessment Respiratory Assessment - associate java developer: Respiratory Tract Infection Hx - associate java developer Hx Respiratory Tract Infection No 03/22/25 15:03 STOP Sleep Apnea STOP Sleep Apnea - associate java developer: STOP Sleep Apnea - associate java developer Hx Hypertension Yes: CONTROLLED WITH MEDS 03/22/25 [...] Tobacco Use History Tobacco Use History - associate java developer: Tobacco Use History - associate java developer Tobacco Use Smoking Status Current every day smoker 03/22/25 15:03 Hx Tobacco Use No 03/22/25 15:03 Years Smoking Packs Smoked per Day Smoking Cessation Date was within the last 15 years Hx Smoking Cessation Date Hx Smoking Cessation Counseling Hematologic Medial History Hematologic Hx - associate java developer: Hematologic Medical Hx - 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 Normal [facility] Anion gap in Serum or Plasma Ordered By: Gilson Hawk on 03-21-2025 Anion gap [Moles/Vol] 15 mmol/L 5-15 [facility] BUN/creatinine ratioOrdered By: Gilson Hawk on 03-21-2025 Urea nitrogen/Creatinine [Mass ratio] 17.4 mg/mg - [facility] Bilirubin, totalOrdered By: Gilson Hawk on 03-21-2025 Bilirubin [Mass/Vol] 0.23 mg/dL 0.00-1.30 [facility] Calculated very low density lipoprotein (VLDL) cholesterol measurementOrdered By: Gilson Hawk on 03-21-2025 Calculated very low density lipoprotein (VLDL) cholesterol measurement 79 mg/dL High 5-40 [facility] Carbon dioxide, total [Moles /volume] in Central venous bloodOrdered By: Gilson Michael on 03-21-2025 CO2 [Moles/Vol] 21.7 mmol/L 21.0-32.0 [facility] Chloride assayOrdered By: Do dre Hawk on 03-21-2025 Chloride [Moles/Vol] 100 mmol/L 98-108 [facility] Comprehensive Metabolic Prof ilon 03-21-2025 Albumin [Mass/Vol] 4.5 g/dL Normal 3.5-5.0 [facility] Comment on above: Performed By: #### L 500.4050, L500.4100, L501.5200, L501.9985 ####[facility] [address] [place], [address] Albumin/Globulin [Mass ratio] 1.3 {ratio} Normal 0.9-2.4 [facility] Comment on above: Performed By: #### L 500.4050, L500.4100, L501.5200, L501.9985 ####[facility] [address] [place], [address] ALK PHOS 96 U/L Normal 40-129 [facility] Comment on above: Performed By: #### L 500.4050, L500.4100, L501.5200, L501.9985 ####[facility] [address] [place], [address] ALT [Catalytic activity/Vol] 35 U/L Normal <=46 [facility] Comment on above: Performed By: #### L 500.4050, L500.4100, L501.5200, L501.9985 ####[facility] [address] [place], [address] AST [Catalytic activity/Vol] 20 U/L Normal <=37 [facility] Comment on above: Result Comment: Hemo lysis present, Results??could be affected. ?? Performed By: #### L 500.4050, L500.4100, L501.5200, L501.9985 ####[facility] [address] [place], [address] Bilirubin [Mass/Vol] 0.23 mg/dL Normal 0.00-1.30 [facility] Comment on above: Performed By: #### L 500.4050, L500.4100, L501.5200, L501.9985 ####[facility] [address] [place], [address] BUN/CRE 17.4 RATIO Normal 10-20 [facility] Comment on above: Performed By: #### L 500.4050, L500.4100, L501.5200, L501.9985 ####[facility] [address] [place], [address] Calcium [Mass/Vol] 10.2 mg/dL Normal 7.6-11.0 [facility] Comment on above: Performed By: #### L 500.4050, L500.4100, L501.5200, L501.9985 ####[facility] [address] [place], [address] Chloride [Moles/Vol] 100 mmol/L Normal 98-108 [facility] Comment on above: Performed By: #### L 500.4050, L500.4100, L501.5200, L501.9985 ####[facility] [address] [place], [address] CO2 [Moles/Vol] 21.7 mmol/L Normal 21.0-32.0 [facility] Comment on above: Performed By: #### L 500.4050, L500.4100, L501.5200, L501.9985 ####[facility] [address] [place], [address] Creatinine [Mass/Vol] 0.93 mg/dL Normal 0.70-1.20 [facility] Comment on above: Performed By: #### L 500.4050, L500.4100, L501.5200, L501.9985 ####[facility] [address] [place], [address] GAP 15 Normal 5-15 [facility] Comment on above: Performed By: #### L 500.4050, L500.4100, L501.5200, L501.9985 ####[facility] [address] [place], [address] GFR/1.73 sq M.predicted among non-blacks MDRD (S/P/Bld) [Vol rate/Area] 97 mL/min/{1.73_m2} Normal >60 [facility] Comment on above: Result Comment: mL/m in/1.73m2 CKD-EPI Creatinine Equation (2020) Performed By: #### L 500.4050, L500.4100, L501.5200, L501.9985 ####[facility] [address] [place], [address] Globulin (S) [Mass/Vol] 3.3 g/dL Normal 2.2-4.2 [facility] Comment on above: Performed By: #### L 500.4050, L500.4100, L501.5200, L501.9985 ####[facility] [address] [place], [address] Glucose [Mass/Vol] 371 mg/dL High 70-99 [facility] Comment on above: Performed By: #### L 500.4050, L500.4100, L501.5200, L501.9985 ####[facility] [address] [place], [address] Potassium [Moles/Vol] 4.1 mmol/L Normal 3.3-5.1 [facility] Comment on above: Result Comment: Hemo lysis present, Results??could be affected. ?? Performed By: #### L 500.4050, L500.4100, L501.5200, L501.9985 ####[facility] [address] [place], [address] Sodium [Moles/Vol] 136 mmol/L Normal 133-145 [facility] Comment on above: Performed By: #### L 500.4050, L500.4100, L501.5200, L501.9985 ####[facility] [address] [place], [address] T PROT 7.8 g/dL Normal 5.9-8.4 [facility] Comment on above: Performed By: #### L 500.4050, L500.4100, L501.5200, L501.9985 ####[facility] [address] [place], [address] Urea nitrogen [Mass/Vol] 16 mg/dL Normal 4-19 [facility] Comment on above: Performed By: #### L 500.4050, L500.4100, L501.5200, L501.9985 ####[facility] [address] [place], [address] Glomerular filtration rate ( GFR) estimation/1.73 sq m using serum, plasma, or whole bOrdered By: Gilson Hawk on 03-21-2025 GFR/1.73 sq M.predicted among non-blacks MDRD (S/P/Bld) [Vol rate/Area] 97 mL/min/{1.73_m2} >60 [facility] Comment on above: mL/min/1.73m2 CKD-EP I Creatinine Equation (2020) Hemoglobin A1con 03-21-2025 HbA1c (Bld) [Mass fraction] 8.8 % High <=5.6 [facility] Comment on above: Result Comment: Norm al < 5.7 % Prediabetic 5.7 - 6.4 % Diabetic >or= 6.5 % Please note range changes. Performed By: #### L 500.4050, L500.4100, L501.5200, L501.9911 ####[facility] [address] [place], [address] Hemoglobin A1c percentageOrd ered By: Gilson Hawk on 03-21-2025 HbA1c (Bld) [Mass fraction] 8.8 % High <5.7 [facility] Comment on above: Normal < 5.7 % Predi abetic 5.7 - 6.4 % Diabetic >or= 6.5 % Please note range changes. Internal Medicine Office Vis iton 03-21-2025 Internal Medicine Office Visit [facility] [place] [address] [place] [address] OFFICE VISIT Date of Service: 03/21/25 MR#: [id number] Acct: [id number] Name: YENNY GARCIA Rep #: [id number] : 1970 Provider: Dr. Gilson Fairchild Br own, DO Age/Sex: 54/M [place] [facility] [place] Status: Signed Intake Vital Signs 02/24/25 10:16 [...] Visit Reasons: SURG CLEARANCE Chief Complaint: clearance Rolfer Required: No Accompanied by: Self Is patient [...] 08/02/24 03/21/25 Rx 5/16 (Comfort EZ Pen [place]) guaifenesin 1,200 mg tablet, 1,200 mg PO [...] meds c/o of heart burn [facility] Medical History Arteriosclerotic heart disease Obesity History of left ten (more content not included)... Normal [facility] LDL calc ser/plasOrdered By: Gilson Hawk on 03-21-2025 Cholesterol in LDL [Mass/Vol] 99 mg/dL [facility] Comment on above: Cdnwyiekuh=786-030 m g/dL & Higher Rmcq=810 mg/dL or greater Laboratory - Chemistry and C hemistry - challengeOrdered By: Gilson Hawk on 03-21-2025 AST [Catalytic activity/Vol] 20 U/L <38 [facility] Comment on above: Hemolysis present, R esults could be affected. Lipid Profileon 03-21-2025 CHOL:HDL 5.58 Normal [facility] Comment on above: Performed By: #### L 500.4050, L500.4100, L501.5200, L501.9985 ####[facility] [address] [place], [place], [address] Cholesterol [Mass/Vol] 216 mg/dL High <=200 [facility] Comment on above: Result Comment: Chol esterol level, Desirable <200 mg/dL Borderline high cholesterol 200-239 mg/dL High cholesterol >=240 mg/dL Recommendations of the NCEP Adult Treatment Panel for the following risk-cutoff thresholds for the [place] population. Performed By: #### L 500.4050, L500.4100, L501.5200, L501.9985 ####[facility] [address] [place], [address] Cholesterol in HDL [Mass/Vol] 39 mg/dL Low [facility] Comment on above: Result Comment: Angy onal Cholesterol Education Program (NCEP) guidelines: <40 mg/dL: Low HDL-cholesterol (major risk factor for CHD) >= 60 mg/dL: High HDL-cholesterol (negative risk factor for CHD) HDL-cholesterol is affected by a number of factors, e.g. smoking, exercise, hormones, sex and age. Performed By: #### L 500.4050, L500.4100, L501.5200, L501.9985 ####[facility] [address] [place], [address] Cholesterol in LDL [Mass/Vol] 99 mg/dL Normal [facility] Comment on above: Result Comment: Bord ruoiod=139-795 mg/dL Higher Duto=356 mg/dL or greater Performed By: #### L 500.4050, L500.4100, L501.5200, L501.9985 ####[facility] [address] [place], [address] Cholesterol in VLDL [Mass/Vol] 79 mg/dL High 5-40 [facility] Comment on above: Performed By: #### L 500.4050, L500.4100, L501.5200, L501.9985 ####[facility] [address] [place], [address] Triglyceride [Mass/Vol] 394 mg/dL High [facility] Comment on above: Result Comment: The drugs N-Acetylcysteine and Metamizole may falsely depress this assay. Normal range: <150 mg/dL Borderline High: 150-199 mg/dL High: 200-499 mg/dL Very High: >500 mg/dL Performed By: #### L 500.4050, L500.4100, L501.5200, L501.9985 ####[facility] [address] [place], [address] Magnesiumon 03-21-2025 Magnesium [Mass/Vol] 2.0 mg/dL Normal 1.5-2.2 [facility] Comment on above: Performed By: #### L 500.4050, L500.4100, L501.5200, L501.9938 ####[facility] [address] [place], [address] Magnesium measurement (mass/ volume)Ordered By: Gilson Hawk on 03-21-2025 Magnesium (Unsp spec) [Mass/Vol] 2.0 mg/dL 1.5-2.2 [facility] Potassium measurement (mass/ volume)Ordered By: Gilson Hawk on 03-21-2025 Potassium (Unsp spec) [Mass/Vol] 4.1 mmol/L 3.3-5.1 [facility] Comment on above: Hemolysis present, R esults could be affected. Screening total cholesterol/ high density lipoprotein (HDL) cholesterol ratioOrdered By: Gilson Hawk on 03-21-2025 Cholesterol.total/Ch olesterol in HDL [Mass ratio] 5.58 {ratio} [facility] Serum creatinine measurement (mass/volume)Ordered By: Gilson Hawk on 03-21-2025 Creatinine [Mass/Vol] 0.93 mg/dL 0.70-1.20 [facility] Serum globulin measurementOr dered By: Gilson Hawk on 03-21-2025 Globulin (S) [Mass/Vol] 3.3 g/dL 2.2-4.2 [facility] Serum glucose measurement (m ass/volume)Ordered By: Gilson Hawk on 03-21-2025 Glucose [Mass/Vol] 371 mg/dL High 70-99 [facility] Serum or plasma alanine mosqueda otransferase (ALT) measurementOrdered By: Gilson Hawk on 03-21-2025 ALT [Catalytic activity/Vol] 35 U/L <47 [facility] Serum or plasma albumin kyle urement (mass/volume)Ordered By: Gilson Hawk on 03-21-2025 Albumin [Mass/Vol] 4.5 g/dL 3.5-5.0 [facility] Serum or plasma albumin/glob ulin mass ratioOrdered By: Gilson Hawk on 03-21-2025 Albumin/Globulin [Mass ratio] 1.3 {ratio} 0.9-2.4 [facility] Serum or plasma alkaline marcus sphatase measurementOrdered By: Gilson Hawk on 03-21-2025 ALP [Catalytic activity/Vol] 96 U/L 40-129 [facility] Serum or plasma calcium kyle urement (mass/volume)Ordered By: Gilson Hawk on 03-21-2025 Calcium [Mass/Vol] 10.2 mg/dL 7.6-11.0 [facility] Serum or plasma cholesterol in HDL measurement (mass/volume)Ordered By: Gilson Hawk on 03-21-2025 Cholesterol in HDL [Mass/Vol] 39 mg/dL Low >40 [facility] Comment on above: National Cholesterol Education Program (NCEP) guidelines:<40 mg/dL: Low HDL-cholesterol (major risk factor for CHD)>= 60 mg/dL: High HDL-cholesterol (negative risk factor for CHD)HDL-cholesterol is affected by a number of factors, e.g. smoking, exercise, hormones, sex and age. Serum or plasma cholesterol measurement (mass/volume)Ordered By: Gilson Hawk on 03-21-2025 Cholesterol [Mass/Vol] 216 mg/dL High <201 [facility] Comment on above: Cholesterol level, D esirable <200 mg/dLBorderline high cholesterol 200-239 mg/dLHigh cholesterol >=240 mg/dLRecommendations of the NCEP Adult Treatment Panel for the following risk-cutoff thresholds for the [place] population. Serum or plasma urea nitroge n measurement (mass/volume)Ordered By: Gilson Hawk on 03-21-2025 Urea nitrogen [Mass/Vol] 16 mg/dL 4-19 [facility] Sodium levelOrdered By: xAel Hawk on 03-21-2025 Sodium [Moles/Vol] 136 mmol/L 133-145 [facility] Total proteinOrdered By: Laurita Hawk on 03-21-2025 Protein [Mass/Vol] 7.8 g/dL 5.9-8.4 [facility] Triglycerides measurementOrd ered By: Gilson Hawk on 03-21-2025 Triglyceride [Mass/Vol] 394 mg/dL High <199 [facility] Comment on above: The drugs N-Acetylcy steine and Metamizole may falsely depress this assay. Normal range: <150 mg/dLBorderline High: 150-199 mg/dLHigh: 200-499 mg/dLVery High: >500 mg/dL Orthopedic Visit Reporton Orthopedic Visit Report [facility] [address] [facility] [address] [place] [address] OFFICE VISIT Date of Service: 03/02/25 MR#: [id number] Acct: [id number] Name: YENNY GARCIA Rep #: [id number] : 1970 Provider: Dr. Jim phillips MD Age/Sex: 54/M [place] [facility] [place] Status: Signed Intake Vital Signs 01/18/25 14:15 [...] 08/02/24 03/02/25 Rx /16 (Comfort EZ Pen Barnhill) guaifenesin 1,200 mg tablet, 1,200 mg PO [...] Mother Dick (more content not included)... Normal [facility] Neurology Visit Reporton Neurology Visit Report [facility] [address] [facility], [address] [place] [address] OFFICE VISIT Date of Service: 02/24/25 MR#: [id number] Acct: [id number] Name: YENNY GARCIA Rep #: [id number] : 1970 Provider: Dr. Weston walton MD Age/Sex: 54/M [place] [facility] [place] Status: Signed HPI HPI Chief Complaint: Patient [...] is again impaired 1/3. 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 Patient uncertain of anxiety regarding [...] with advanced diabetic neuropathy which is painful Rolfer Required: No Accompanied by: Self Allergies bee [...] BID #3 (more content not included)... Normal [facility] Internal Medicine Office Vis iton 02-22-2025 Internal Medicine Office Visit [facility] [address] [place] [address] [place] [address] OFFICE VISIT Date of Service: 02/22/25 MR#: [id number] Acct: [id number] Name: YENNY GARCIA Rep #: [id number] : 1970 Provider: Dr. Gilson Richard own, DO Age/Sex: 54/M [place] [facility] [place] Status: Signed Intake Vital Signs 01/30/25 13:46 [...] Visit Reasons: BAD HEARTBURN Chief Complaint: Heartburn. 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 Pt states the med prescribed did not help, so he dc'd awhile ago. Pt states it seems to happen if he eats anything. Pt states it gets worse if his sugar is high, pt also c/o esophageal sensitivity w/ fluids. 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 This has been going on a long time. Is not certain what (more content not included)... Normal [facility] Endocrinology Visit Reporton 01-30-2025 Endocrinology Visit Report [facility] [address] [facility] [facility] [address] [place] [address] OFFICE VISIT Date of Service: 01/30/25 MR#: [id number] Acct: [id number] Name: YENNY GARCIA Rep #: [id number] : 1970 Provider: DARIUS dai Age/Sex: 54/M [place] [facility] [place]: Signed Intake Vital Signs 12/12/24 13:25 [...] 08/02/24 01/30/25 Rx 5/16 (Comfort EZ Pen Barnhill) guaifenesin 1,200 mg tablet, 1,200 mg PO [...] surgery Histo (more content not included)... Normal [facility] Orthopedic Visit Reporton Orthopedic Visit Report [facility] [address] [place] [address] OFFICE VISIT Date of Service: 01/19/25 MR#: [id number] Acct: [id number] Name: YENNY GARCIA Rep #: [id number] : 1970 Provider: Dr. Jim phillips MD Age/Sex: 54/M [place] [facility] [place] Status: Signed Intake Vital Signs 10/17/24 08:28 [...] 08/02/24 01/19/25 Rx 5/16 (Comfort EZ Pen Barnhill) guaifenesin 1,200 mg tablet, 1,200 mg PO [...] knee surgery (more content not included)... Normal [facility] HIP, UNI W/ Pelvis 2-3 Views on 01-18-2025 HIP, UNI W/ Pelvis 2-3 Views [facility] [address] [place] [address] HIP, UNI W/ Pelvis 2-3 Views MR#: [id number] Acct: [id number] Name: GIORGIOSHARYNYENNY LOPEZ Darwin Rep #: [id number] : 1970 M 54 From: Rodney Maldonado MD PCP: Dr. Gilson Hawk DO Status: DEP AMB Study: HIP, UNI W/ Pelvis 2-3 Views Date of Exam: Exam# [id number] Ordering Dr: Weston Browne DO PROCEDURE: HIP, UNI W/ PELVIS 2-3 VIEWS 01/18/2025 REASON FOR EXAM: CHRONIC HIP PAIN TECHNIQUE: Three views of the right hip FINDINGS: Bones: No acute fracture or dislocation. Joints: Normal alignment. Mild degenerative changes. Soft tissues: Soft tissues are unremarkable. Other: RAD/HIP, UNI W/ Pelvis 2-3 Views IMPRESSION: DEGENERATIVE OSTEOARTHROSIS. NO ACUTE FINDINGS. Reading Location: [id number] CC: Dr. Gilson Hawk DO; Dr. Weston Browne DO Beauty Consultant: Signed Normal [facility] Lumbar Spine 2 or 3 Viewson 01-18-2025 Lumbar Spine 2 or 3 Views [facility] [address] [place], [place] [id number] Lumbar Spine 2 or 3 Views MR#: [id number] Acct: [id number] Name: EYNNY GARCIA Rep #: [id number] : 1970 M 54 From: Rodney Maldonado MD PCP: Dr. Gilson Hawk DO Status: DEP AMB Study: Lumbar Spine 2 or 3 Views Date of Exam: Exam# [id number] Ordering Dr: Weston Browne DO PROCEDURE: LUMBAR [...] Mild diffuse degenerative disc disease. Reading Location: [id number] CC: Dr. Gilson Hawk DO; Dr. Weston Browne DO Beauty Consultant: Signed Normal [facility] Orthopedic Visit Reporton Orthopedic Visit Report [facility] [address] [place] [address] OFFICE VISIT Date of Service: 01/18/25 MR#: [id number] Acct: [id number] Name: YENNY GARCIA Rep #: [id number] : 1970 Provider: Dr. Weston wolfe DO [...] 08/02/24 01/18/25 Rx 5/16 (Comfort EZ Pen Barnhill) guaifenesin 1,200 mg tablet, 1,200 mg PO [...] bypass gra (more content not included)... Normal [facility] Neurology Visit Reporton Neurology Visit Report [facility] [address] [facility] [place] [address] OFFICE VISIT Date of Service: 12/14/24 MR#: [id number] Acct: [id number] Name: YENNY GARCIA Rep #: [id number] : 1970 Provider: Dr. Weston walton MD Age/Sex: 54/M [place] [facility] [place] Status: Signed HPI HPI Details: The patient [...] F Temp Sour (more content not included)... [facility] CDSon 12-13-2024 CDS DATE: 12/13/2024 HOSPITAL COURSE: [...] in 24 hours for followup. 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 POSTOPERATIVE DIAGNOSIS: Cataract, right eye. OPERATION: Phacoemulsification of the right eye, placement of posterior chamber [place] intraocular lens. ANESTHESIA: General. DIRECTOR OF RESOURCE DEVELOPMENT: None. COMPLICATIONS: None. LOSS OF BLOOD: None. [...] the procedure well. No complications. TM/RAH TID: [id number] DICTATING PROVIDER: Ananya Gibson [facility] Endocrinology Visit Reporton 12-12-2024 Endocrinology Visit Report [facility] [address] [facility] [place] [address] OFFICE VISIT Date of Service: 12/12/24 MR#: [id number] Acct: [id number] Name: YENNY GARCIA Rep #: [id number] : 1970 Provider: DARIUS dai Age/Sex: 54/M [place] [facility] [place]: Signed Intake Vital Signs 10/31/24 14:22 [...] 08/02/24 12/12/24 Rx 5/16 (Comfort EZ Pen Barnhill) guaifenesin 1,200 mg tablet, 1,200 mg PO [...] Jt 3 Plus Sensor device) [facility] Medical History Arteriosclerotic heart disease Obesity History of left tennis elbow Tobacco abuse Type 2 diabetes mellitus Dyslipidemia Acute anxiety LOUISE (obstructive sleep apnea) Nocturnal hypoxemia Polyneuropathy Hypertension Environmental and seasonal allergies Uncontrolled persistent asthma Chest pain, atypical Hyperglycemia Arthralgia of acromioclavicular joint Chronic sinusitis Non-compliance Surgical History ... Normal [facility] Laboratory - Hematology and Cell countsOrdered By: Myra Alvarado on 12-12-2024 HbA1c (Bld) [Mass fraction] 10.3 % High 4.2-6.3 [facility] Basic Metabolic Panelon 11-19 Anion gap [Moles/Vol] 13.8 mmol/L Normal 8.0-16.0 [facility] Comment on above: Performed By: #### B MP #### [facility] [address] [place] [address] Calcium [Mass/Vol] 9.1 mg/dL Normal 8.2-10.0 [facility] Comment on above: Performed By: #### B MP #### [facility] [address] [place] [address] Chloride [Moles/Vol] 103 mmol/L Normal 94-110 [facility] Comment on above: Performed By: #### B MP #### [facility] [address] [place] [address] CO2 [Moles/Vol] 25 mmol/L Normal 21-34 [facility] Comment on above: Performed By: #### B MP #### [facility] [address] [place] [address] Creatinine [Mass/Vol] 0.90 mg/dL Normal 0.50-1.17 [facility] Comment on above: Performed By: #### B MP #### [facility] [address] [place] [address] EGFR Other Races >60 Normal >60 [facility] Comment on above: Performed By: #### B MP #### [facility] [address] [place] [address] GFR/1.73 sq M.predicted among blacks MDRD (S/P/Bld) [Vol rate/Area] mL/min/{1.73_m2} Normal >60 [facility] Comment on above: Result Comment: Distribution Estimator aguilar Kidney Disease less than 60 mL/min/1.73 m2 Kidney Failure less than 15 mL/min/1.73 m2 Average estimated GFR by age: 50-59 years 93 mL/min/1.73 m2 Performed By: #### B MP #### [address] [place] [address] Glucose [Mass/Vol] 197 mg/dL High 65-100 [facility] Comment on above: Performed By: #### B MP #### [address] [place] [address] Potassium [Moles/Vol] 3.8 mmol/L Normal 3.3-5.1 [facility] Comment on above: Performed By: #### B MP #### [address] [place] [address] Sodium [Moles/Vol] 138 mmol/L Normal 132-145 [facility] Comment on above: Performed By: #### B MP #### [address] [place] [address] Urea nitrogen [Mass/Vol] 19.4 mg/dL Normal 3.2-26.9 [facility] Comment on above: Performed By: #### B MP #### [address] [place] [address] Urea nitrogen/Creatinine [Mass ratio] 22 mg/mg High 6-20 [facility] Comment on above: Performed By: #### B MP #### [address] [place] [address] Orthopedic Visit Reporton Orthopedic Visit Report [facility] [facility] [address] [place] [address] OFFICE VISIT Date of Service: 11/07/24 MR#: [id number] Acct: [id number] Name: YENNY GARCIA Rep #: [id number] : 1970 Provider: Dr. Weston Oden so DO Age/Sex: 54/M [place] [facility] [place] Status: Signed Intake Vital Signs 11/01/24 13:14 [...] Cosigner Signature: Date (if applicable) CC: Normal [facility] Internal Medicine Office Vis laure 11-01-2024 Internal Medicine Office Visit [facility] [address] [place] [address] OFFICE VISIT Date of Service: 11/01/24 MR#: [id number] Acct: [id number] Name: YENNY GARCIA Rep #: [id number] : 1970 Provider: Dr. Gilson anderson DO Age/Sex: 54/M [place] [facility] [place] Status: Signed Intake Vital Signs 08/31/24 10:15 [...] 2 M FU Chief Complaint: f/u diabetes Rolfer Required: No Accompanied by: Self Is patient [...] 08/02/24 11/01/24 Rx 5/16 (Comfort EZ Pen Barnhill) guaifenesin 1,200 mg tablet, 1,200 mg PO Q12H PRN 08/30/2410/22 History extended release 12 hr lidocaine 4 % topical patch 2 patch topical QDAY PRN pain #30 08/30/24 11/01/24 Rx (Salonpas (lidocaine)) ea magnesium oxide 400 mg (241.3 mg 400 mg PO QHS #30 tabs 08/30/24 Rx magnesium) tablet blood-glucose meter,continuous #1 ea 08/31/24 11/01/24 Rx (Dexcom G7 Director Channel) cyclobenzaprine 10 mg tablet 10 mg PO [...] CABG (cor (more content not included)... Normal [facility] Endocrinology Visit Reporton 10-31-2024 Endocrinology Visit Report [facility] [address] [facility] [address] [place] [address] OFFICE VISIT Date of Service: 10/31/24 MR#: [id number] Acct: [id number] Name: ALYSSAJOHNYENNY Darwin Rep #: [id number] : 1970 Provider: DARIUS dai Age/Sex: 54/M [place] [facility] [place] Status: Signed Intake Vital Signs 09/06/24 [...] 08/02/24 10/31/24 Rx 5/16 (Comfort EZ Pen Barnhill) pregabalin 200 mg capsule (Lyrica) 200 mg [...] #1 ea 08/31/24 10/31/24 Rx (Dexcom G7 Director Channel) cyclobenzaprine 10 mg tablet 10 mg PO [...] Rx subcutaneous pen injector (Mounjaro) [facility] Medical History Arteriosclerotic heart disease Obesity History [...] Mother Cancer (more content not included)... Normal [facility] Orthopedic Visit Reporton Orthopedic Visit Report [facility] [address] [place] [address] OFFICE VISIT Date of Service: 10/21/24 MR#: [id number] Acct: [id number] Name: YENNY GARCIA Rep #: [id number] : 1970 Provider: Dr. Jim phillips MD Age/Sex: 54/M [place] [facility] [place] Status: Signed Intake Vital Signs 10/17/24 08:28 [...] 08/02/24 09/06/24 Rx 5/16 (Comfort EZ Pen Barnhill) pregabalin 200 mg capsule (Lyrica) 200 mg [...] #1 ea 08/31/24 09/06/24 Rx (Dexcom G7 Director Channel) cyclobenzaprine 10 mg tablet 10 mg PO [...] substance use (more content not included)... Normal [facility] 12 Lead EKG performed by [facility] on 10-17-2024 12 Lead EKG performed by [address] [place] [address] 12 Lead EKG performed by [facility] 10/17/24827 MR#: [id number] Acct: [id number] Name: YENNY GARCIA Rep #: [id number] : 1970 54 From: Nael Miller MD Attending Dr: Dr. Nael Miller MD Status: DEP AMB Ordering Dr: Nael Miller MD Date: 10/17/24 [place] [facility] [place] M C [place] [facility] Lead E[place] performed [place] [facility] ECG Report Interpretation S inus Rhythm - Negative precordial T-waves. WITHIN NORMAL LIMITSElectronically signed on 10/17/2024 at 11:[address] Nael Miller [employer] Software Version 8610 10/17/24 1140 Date Nael Miller MD CC: Dr. Gilson Hawk DO Date Dictated: 10/17/2428 Date Transcribed: 10/17/24827 Beauty Consultant: CHRISTINE Signed Normal [facility] Cardiology Visit Reporton Cardiology Visit Report [facility] [address] [place] [address] OFFICE VISIT Date of Service: 10/17/24 MR#: [id number] Acct: [id number] Name: YENNY GARCIA Rep #: [id number] : 1970 Provider: Dr. Nael Miller MD Age/Sex: 54/M [place] [facility] [place] Status: Signed HPI HPI History of Present Illness Details: This gentleman with history of nicotine dependence, dyslipidemia, obstructive sleep apnea, diabetes mellitus, polyneuropathy and coronary artery disease status post three-vessel CABG in 2021, is here to establish cardiac care with us. Patient has had an NSTEMI in 2021. He has had coronary angiography done at [facility]. It showed triple-vessel disease. Subsequently he has [...] Reasons: Presence of Aortocoronary Bypass Graft (Michael) Rolfer Required: No Accompanied by: Self Is patient [...] 08/02/24 09/06/24 Rx 5/16 (Comfort EZ Pen Barnhill) pregabalin 200 mg capsule (Lyrica) 200 mg PO TID #90 caps 08/09/24 10/17/24 Rx dulaglutide 4.5 mg/0.5 mL 4.5 mg (0.5 mL) subcut QWEEK #2 mL 08/20/24 10/17/24 Rx subcutaneous pen injector ([facility]) guaifenesin 1,200 mg tablet, 1,200 mg PO [...] #1 ea 08/31/24 09/06/24 Rx (Dexcom G7 Director Channel) cyclobenzaprine 10 mg tablet 10 mg PO [...] in the past year?: No [facility] Medical History (Updated 10/17/24 @ 09:[address] Nael Miller MD) Arteriosclerotic heart disease Obesity History of left tennis elbow Tobacco abuse Type 2 diabetes mellitus Dyslipidemia Acute anxiety LOUISE (obstructive sleep apnea) Nocturnal hypoxemia Polyneuropathy Hypertension Environmental and seasonal allergies Uncontrolled persistent asthma Chest pain, atypical Hyperglycemia Arthralgia of acromio (more content not included)... Normal [facility] Cardiac echo study Procedure on 10-12-2024 IMPRESSION: [...] difficult with Definity Patient Status: OP Site: [facility] Current Location: [facility] Exam Type: ECHOCARDIOGRAM WITH CONTRAST Study Info Indications - COPD Procedure(s) A complete two-dimensional, color flow and Doppler transthoracic echocardiogram was performed with Definity contrast to opacify the left ventricle and to improve the delineation of the left ventricle endocardial borders. Staff Ordering Provider: Chris Gasca [employer] Assistant: Staci Sarkar [facility] History/Risk Factors Prior Interventions CABG: Yes Left [...] mmHg MV VTI 17 cm MV Decel [place] 193 cm/s2 MV PHT 64 ms MV [...] difficult with Definity Patient Status: OP Site: [facility] Current Location: [facility] Exam Type: ECHOCARDIOGRAM WITH CONTRAST Study Info Indications - COPD Procedure(s) A complete two-dimensional, color flow and Doppler transthoracic echocardiogram was performed with Definity contrast to opacify the left ventricle and to improve the delineation of the left ventricle endocardial borders. Staff Ordering Provider: Chris Gasca Computer Lab Assistant: Staci Sarkar [facility] History/Risk Factors Prior Interventions CABG: Yes Left [...] mmHg MV VTI 17 cm MV Decel [place] 193 cm/s2 MV PHT 64 ms MV [...] mmHg <=5 Aorta (more content not included)... [employer] Radiology Study observation (narrative) [facility] Cardiac echo study Procedure Ordered By: Ryan Badillo on 10-12-2024 [facility] Respi Work Phone: NCS and/or EMG Patienton NCS and/or EMG Patient [facility] Pulmonary Services/Neurology [address] [place] [address] MR#: [id number] Acct: [id number] Name: YENNY GARCIA Rep #: [id number] : 1970 54 From: Nae Winters MD [...] Multi Select Codes Neurology Neurology Interp Codes: 34005-60 Musc test done w/n test comp (interp) (2) and 19608-32 Nrv cndj test 9-10 studies (interp) 10/05/24 1304 Date Nae Winters MD CC: Dr. Nae Winters MD; Dr. Gilson Hawk DO; Dr. Jim Self MD Date Dictated: 10/05/24 1301 Date Transcribed: 10/05/24 130 Beauty Consultant: OCTAVIANO Signed Normal [facility] Orthopedic Visit Reporton Orthopedic Visit Report [facility] [address] [place] [address] [address] [place] [address] OFFICE VISIT Date of Service: 09/06/24 MR#: [id number] Acct: [id number] Name: YENNY GARCIA Rep #: [id number] : 1970 Provider: Dr. Jim phillips MD Age/Sex: 53/M [place] [facility] [place] Status: Signed Intake Vital Signs 08/31/24 10:15 [...] 08/02/24 09/06/24 Rx /16 (Comfort EZ Pen [place]) pregabalin 200 mg capsule (Lyrica) 200 mg [...] #1 ea 08/31/24 09/06/24 Rx (Dexcom G7 Director Channel) cyclobenzaprine 10 mg tablet 10 mg PO [...] Surgical History (Updated 09/06/24 @ 09:09 by Mracella Bell) History of open heart surgery History [...] you parti (more content not included)... Normal [facility] Vitamin B1, Thiamineon 09-05 VIT B1 THIAMINE 150.4 nmol/L Normal 66.5-200.0 [facility] Comment on above: Order Comment: Test( s) 616785-Vru. B1, Whole Bloodwas developed and its performance characteristicsdetermined by [facility]. It has not been cleared or approvedby the Food and Drug Administration. Result Comment: Perf ormed at: - Lab[address] [id number] [employer] Brake Lining Finisher: Kathryn Aldana MD, Phone: [phone] Performed By: #### L 501.5200, L503.0105, L3300.8000, L506.0250, L100.0100 ####[facility] [address] [place], [address] CBC W/Diff, Automatedon 08-21 Absolute Lymph 1.94 X10 3/uL Normal 0.83-4.51 [facility] Comment on above: Performed By: #### L 501.5200, L503.0105, L3300.8000, L506.0250, L100.0100 ####[facility] [address] [place], [address] Absolute Neut 5.7 X10 3/uL Normal 2.0-7.7 [facility] Comment on above: Performed By: #### L 501.5200, L503.0105, L3300.8000, L506.0250, L100.0100 ####[facility] [address] [place], [address] Basophils/100 WBC (Bld) 0.6 % Normal 0-1 [facility] Comment on above: Performed By: #### L 501.5200, L503.0105, L3300.8000, L506.0250, L100.0100 ####[facility] [address] [place], [address] Eosinophils/100 WBC (Bld) 1.2 % Normal 0-5 [facility] Comment on above: Performed By: #### L 501.5200, L503.0105, L3300.8000, L506.0250, L100.0100 ####[facility] [address] [place], [address] Erythrocyte distribution width (RBC) [Ratio] 13.2 % Normal 11.6-14.6 [facility] Comment on above: Performed By: #### L 501.5200, L503.0105, L3300.8000, L506.0250, L100.0100 ####[facility] [address] [place], [address] Hematocrit (Bld) [Volume fraction] 47.8 % Normal 40-54 [facility] Comment on above: Performed By: #### L 501.5200, L503.0105, L3300.8000, L506.0250, L100.0100 ####[facility] [address] [place], [address] Hemoglobin (Bld) [Mass/Vol] 16.1 g/dL Normal 13.0-16.5 [facility] Comment on above: Performed By: #### L 501.5200, L503.0105, L3300.8000, L506.0250, L100.0100 ####[facility] [address] [place], [address] IG% 0.700 Normal 0.0-0.9 [facility] Comment on above: Result Comment: IG% - Immature Granulocytes (promyelocytes, myelocytes and metamyelocytes) > 1% indicates that a LEFT SHIFT is Present. Performed By: #### L 501.5200, L503.0105, L3300.8000, L506.0250, L100.0100 ####[facility] [address] [place], [address] Lymphocytes/100 WBC (Bld) 23.3 % Normal 19-41 [facility] Comment on above: Performed By: #### L 501.5200, L503.0105, L3300.8000, L506.0250, L100.0100 ####[facility] [address] [place], [address] MCH (RBC) [Entitic mass] 29.6 pg Normal 27.0-32.0 [facility] Comment on above: Performed By: #### L 501.5200, L503.0105, L3300.8000, L506.0250, L100.0100 ####[facility] [address] [place], [address] MCHC (RBC) [Mass/Vol] 33.7 g/dL Normal 32-36 [facility] Comment on above: Performed By: #### L 501.5200, L503.0105, L3300.8000, L506.0250, L100.0100 ####[facility] [address] [place], [address] MCV (RBC) [Entitic vol] 87.9 fL Normal 80-94 [facility] Comment on above: Performed By: #### L 501.5200, L503.0105, L3300.8000, L506.0250, L100.0100 ####[facility] [address] [place], [address] Monocytes/100 WBC (Bld) 6.3 % Normal 0-10 [facility] Comment on above: Performed By: #### L 501.5200, L503.0105, L3300.8000, L506.0250, L100.0100 ####[facility] [address] [place], [address] Neutrophils/100 WBC (Bld) 67.9 % Normal 47-70 [facility] Comment on above: Performed By: #### L 501.5200, L503.0105, L3300.8000, L506.0250, L100.0100 ####[facility] [address] [place], [address] Nucleated RBC (Bld) [#/Vol] 0 10*3/uL Normal 0-5 [facility] Comment on above: Performed By: #### L 501.5200, L503.0105, L3300.8000, L506.0250, L100.0100 ####[facility] [address] [place], [address] Platelet mean volume (Bld) [Entitic vol] 10.8 fL Normal 6.2-12.0 [facility] Comment on above: Performed By: #### L 501.5200, L503.0105, L3300.8000, L506.0250, L100.0100 ####[facility] [address] [place], [address] Platelets (Bld) [#/Vol] 303 10*3/uL Normal 150-450 [facility] Comment on above: Performed By: #### L 501.5200, L503.0105, L3300.8000, L506.0250, L100.0100 ####[facility] [address] [place], [address] RBC (Bld) [#/Vol] 5.44 10*6/uL Normal 4.6-6.2 [facility] Comment on above: Performed By: #### L 501.5200, L503.0105, L3300.8000, L506.0250, L100.0100 ####[facility] [address] [place], [address] RDW SD 42.8 fl Normal 35.1-43.9 [facility] Comment on above: Performed By: #### L 501.5200, L503.0105, L3300.8000, L506.0250, L100.0100 ####[facility] [address] [place], [address] WBC (Bld) [#/Vol] 8.3 10*3/uL Normal 4.4-11.0 [facility] Comment on above: Performed By: #### L 501.5200, L503.0105, L3300.8000, L506.0250, L100.0100 ####[facility] [address] [place], [address] Folates, (Folic Acid)on 08-21 FOLATES 19.00 ng/mL Normal 3.1-55.4 [facility] Comment on above: Order Comment: N Performed By: #### L 501.5200, L503.0105, L3300.8000, L506.0250, L100.0100 ####[facility] [address] [place], [address] Glucoseon 08-31-2024 Glucose [Mass/Vol] 193 mg/dL High 74-106 [facility] Comment on above: Result Comment: Fast ing Glucose result greater than or equal to 126 mg/dL suggests DIABETES MELLITUS per A.D.A. criteria. Performed By: #### L 501.9985, L501.0100 ####[facility] [address] [place], [address] Hemoglobin A1con 08-31-2024 HbA1c (Bld) [Mass fraction] 9.4 % High 3.8-5.6 [facility] Comment on above: Result Comment: Norm al < 5.7 % Prediabetic 5.7 - 6.4 % Diabetic >or= 6.5 % Please note range changes. Performed By: #### L 501.9985, L501.0100 ####[facility] [address] [place], [place], [address] Internal Medicine Office Vis iton 08-31-2024 Internal Medicine Office Visit [facility] [place], [place] [address] OFFICE VISIT Date of Service: 08/31/24 MR#: [id number] Acct: [id number] Name: YENNY GARCIA Rep #: [id number] : 1970 Provider: Dr. Gilson anderson, DO Age/Sex: 53/M [place] [facility] [place] Status: Signed Intake Vital Signs 07/20/24 09:47 [...] wk FU Chief Complaint: 6 week f/u Rolfer Required: No Accompanied by: Self Is patient [...] 08/02/24 08/31/24 Rx 5/16 (Comfort EZ Pen [place]) pregabalin 200 mg capsule (Lyrica) 200 mg [...] #1 ea 08/31/24 08/31/24 Rx (Dexcom G7 Director Channel) cyclobenzaprine 10 mg tablet 10 mg PO [...] HPI HPI (more content not included)... Normal [facility] Magnesiumon 08-31-2024 Magnesium [Mass/Vol] 2.7 mg/dL High 1.6-2.6 [facility] Comment on above: Order Comment: N Performed By: #### L 501.5200, L503.0105, L3300.8000, L506.0250, L100.0100 ####[facility] [address] [place], [place], [address] Vitamin B12on 08-31-2024 Cobalamin (Vitamin B12) [Mass/Vol] 473 pg/mL Normal 211-911 [facility] Comment on above: Performed By: #### L 501.5200, L503.0105, L3300.8000, L506.0250, L100.0100 ####[facility] [address] [place], [place], [address] Neurology Visit Reporton Neurology Visit Report [facility] [address] [facility], [address] [place], [place] [address] OFFICE VISIT Date of Service: 08/30/24 MR#: [id number] Acct: [id number] Name: YENNY GARCIA Rep #: [id number] : 1970 Provider: Dr. Weston walton MD Age/Sex: 53/M [place] [facility] [place] Status: Signed HPI HPI Chief Complaint: Establish Care Details: The patient is a 53-year-old right handed male who presents to establish care. He was referred 07/20/[address] Gilson Hawk with [facility] for diabetes mellitus due to underlying condition with diabetic neuropathy. This patient is seen with nurse practitioner Cris as roll hand. Patient presents for evaluation of peripheral neuropathy [...] at this (more content not included)... Normal [facility] Basic Metabolic Profile (BMP )on 07-20-2024 BUN/CRE 13.6 RATIO Normal 07-10 [facility] Comment on above: Performed By: #### L 501.9520, L500.2500, L501.9985 #### [facility] [address] [place], [address] CA,Total 9.4 mg/dL Normal 8.5-10.1 [facility] Comment on above: Performed By: #### L 501.9520, L500.2500, L501.9985 #### [facility] [address] [place], [address] Chloride [Moles/Vol] 100 mmol/L Normal 98-107 [facility] Comment on above: Performed By: #### L 501.9520, L500.2500, L501.9985 #### [facility] [address] [place], [address] CO2 [Moles/Vol] 27.0 mmol/L Normal 21.0-32.0 [facility] Comment on above: Performed By: #### L 501.9520, L500.2500, L501.9985 #### [facility] [address] [place], [address] Creatinine [Mass/Vol] 1.03 mg/dL Normal 0.70-1.30 [facility] Comment on above: Result Comment: The validity of the calculated GFR GFRAA in patients over 70 years has not been determined. Clinical correlation is essential. Performed By: #### L 501.9520, L500.2500, L501.9985 #### [facility] [address] [place], [address] EST GFR - AA 97 mL/min Normal >60 [facility] Comment on above: Result Comment: Afri can Senegalese GFR Calc Performed By: #### L 501.9520, L500.2500, L501.9985 #### [facility] [address] [place], [address] GAP 7 Normal 5-15 [facility] Comment on above: Performed By: #### L 501.9520, L500.2500, L501.9985 #### [facility] [address] [place], [address] GFR/1.73 sq M.predicted among non-blacks MDRD (S/P/Bld) [Vol rate/Area] 80 mL/min/{1.73_m2} Normal >60 [facility] Comment on above: Result Comment: Non- GFR Calc Performed By: #### L 501.9520, L500.2500, L501.9985 #### [facility] [address] [place], [address] Glucose [Mass/Vol] 344 mg/dL High 74-106 [facility] Comment on above: Result Comment: Gluc ose result greater than or equal to 200 mg/dL suggests DIABETES MELLITUS per A.D.A. criteria. Performed By: #### L 501.9520, L500.2500, L501.9985 #### [facility] [address] [place], [address] Potassium [Moles/Vol] 4.1 mmol/L Normal 3.5-5.1 [facility] Comment on above: Performed By: #### L 501.9520, L500.2500, L501.9985 #### [facility] [address] [place], [address] Sodium [Moles/Vol] 135 mmol/L Low 136-145 [facility] Comment on above: Performed By: #### L 501.9520, L500.2500, L501.9985 #### [facility] [address] [place], [address] Urea nitrogen [Mass/Vol] 14 mg/dL Normal 7-18 [facility] Comment on above: Performed By: #### L 501.9520, L500.2500, L501.9985 #### [facility] [address] [place], [address] Hemoglobin A1con 07-20-2024 HbA1c (Bld) [Mass fraction] 11.2 % High 3.8-5.6 [facility] Comment on above: Result Comment: Norm al < 5.7 % Prediabetic 5.7 - 6.4 % Diabetic >or= 6.5 % Please note range changes. Performed By: #### L 501.9520, L500.2500, L501.9985 ####[facility] [address], [address] Internal Medicine Office Vis laure 07-20-2024 Internal Medicine Office Visit [facility] [address] [place] [address] [place] [address] OFFICE VISIT Date of Service: 07/20/24 MR#: [id number] Acct: [id number] Name: YENNY GARCIA Rep #: [id number] : 1970 Provider: Dr. Gilson anderson, Age/Sex: 53/M [place] [facility] [place] Status: Signed Intake Vital Signs 04/08/24 12:30 [...] finished ea (more content not included)... Normal [facility] Thyroid Stim Hormone (TSH)on 07-20-2024 TSH 1.340 uIU/mL Normal 0.358-3.740 [facility] Comment on above: Performed By: #### L 501.9544, L500.2500, L501.9985 #### [facility] [address] [place] [address], [address] CBC + DIFFon 06-20-2024 Baso # 0.03 x10EE3/UL Normal 0.00 - 0.10 [facility] Comment on above: Performed By: #### 2 01200 #### [facility],[address] [place] [address] Basophils/100 WBC (Bld) 0.2 % Normal 0.0 - 2.0 [facility] Comment on above: Performed By: #### 2 36963 #### [facility],[address] [place] [address] CBC + DIFF Normal [facility] Comment on above: Result Comment: CBC- COMPLETE BLOOD COUNT Performed By: #### 2 83321 #### [facility],[address] [place] [address] EO # 0.20 x10EE3/UL Normal 0.00 - 0.50 [facility] Comment on above: Performed By: #### 2 20975 #### [facility],[address] [place] [address] Eosinophils/100 WBC (Bld) 1.7 % Normal 0.0 - 7.0 [facility] Comment on above: Performed By: #### 2 09112 #### [facility],[address] [place], [place] [address] Erythrocyte distribution width (RBC) [Ratio] 13.8 % Normal 12.0 - 15.6 [facility] Comment on above: Performed By: #### 2 72025 #### [facility],[address] [place] [address] Hematocrit (Bld) [Volume fraction] 45.8 % Normal 40.0 - 52.0 [facility] Comment on above: Performed By: #### 2 81737 #### [facility],[address] [place] [address] Hemoglobin (Bld) [Mass/Vol] 15.6 g/dL Normal 13.0 - 17.5 [facility] Comment on above: Performed By: #### 2 12126 #### [facility],[address] [place] [address] Lymph # 2.45 x10EE3/UL Normal 0.80 - 2.80 [facility] Comment on above: Performed By: #### 2 15977 #### [facility],[address] [place] [address] Lymphocytes/100 WBC (Bld) 20.4 % Normal 20.0 - 45.0 [facility] Comment on above: Performed By: #### 2 73474 #### [facility],[address] [place] [address] MANUAL DIFF N/A Normal [facility] Comment on above: Performed By: #### 2 40904 #### [facility],[address] [place] [address] MCH (RBC) [Entitic mass] 30 pg Normal 27 - 33 [facility] Comment on above: Performed By: #### 2 90052 #### [facility],[address] [place] [address] MCHC 34 X10 3 Normal 32 - 36 [facility] Comment on above: Performed By: #### 2 02242 #### [facility],[address] [place] [address] MCV (RBC) [Entitic vol] 88 fL Normal 81 - 98 [facility] Comment on above: Performed By: #### 2 11327 #### [facility],[address] [place] [address] Daggett # 0.54 x10EE3/UL Normal 0.20 - 1.00 [facility] Comment on above: Performed By: #### 2 73292 #### [facility],[address] [place] [address] MONOS % 4.5 % Normal 0.0 - 10.0 [facility] Comment on above: Performed By: #### 2 00345 #### [facility],[address] [place], [place] [address] Morphology John (Bld) [Interp] N/A Normal [facility] Comment on above: Performed By: #### 2 50748 #### [facility],[address] [place] [address] Neut # 8.78 x10EE3/UL High 1.50 - 7.10 [facility] Comment on above: Performed By: #### 2 78906 #### [facility],[address] [place] [address] Neutrophils/100 WBC (Bld) 73.2 % Normal 46.0 - 76.0 [facility] Comment on above: Performed By: #### 2 53285 #### [facility],[address] [place] [address] PLATELET 273 x10EE3/UL Normal 150 - 450 [facility] Comment on above: Performed By: #### 2 49625 #### [facility],[address] [place] [address] Platelet mean volume (Bld) [Entitic vol] 8.1 fL Normal 6.4 - 10.5 [facility] Comment on above: Result Comment: AUTO MATED DIFFERENTIAL Performed By: #### 2 52757 #### [facility],[address] [place] [address] 20883 RBC 5.23 x 10EE6/UL Normal 4.50 - 6.00 [facility] Comment on above: Performed By: #### 2 43771 #### [facility],[address] [place] [address] 11973 WBC 12.0 x 10EE3/UL High 4.5 - 10.8 [facility] Comment on above: Performed By: #### 2 41139 #### [facility],[address] [place] [address] LIPID PROFILEon 06-20-2024 Cholesterol [Mass/Vol] 180 mg/dL Normal 0 - 240 [facility] Comment on above: Performed By: #### 2 00902 #### [facility],[address] [place] [address] Cholesterol in HDL [Mass/Vol] 41 mg/dL Normal 40 - 60 [facility] Comment on above: Performed By: #### 2 63538 #### [facility],[address] [place] [address] Cholesterol in LDL [Mass/Vol] 71 mg/dL Normal 0 - 129 [facility] Comment on above: Performed By: #### 2 67341 #### [facility],[address] [place] [address] Cholesterol.total/Ch olesterol in HDL [Mass ratio] 4.4 {ratio} Normal 0.0 - 5.0 [facility] Comment on above: Performed By: #### 2 87972 #### [facility],[address] [place] [address] Lipid 1996 panel Normal [facility] Comment on above: Result Comment: LIPI D PROFILE Performed By: #### 2 11688 #### [facility],[address] [place] [address] Triglyceride [Mass/Vol] 341 mg/dL High 0 - 150 [facility] Comment on above: Performed By: #### 2 68522 #### [facility],[address] [place] [address] Pulmonary Visit Reporton Pulmonary Visit Report [facility] Pulmonary Medicine of [address] [place] [address] OFFICE VISIT Date of Service: 05/19/24 MR#: [id number] Acct: [id number] Name: YENNY GARCIA Rep #: [id number] : 1970 Provider: DARIUS Espinoza Age/Sex: 53/M [place] [facility] [place] Status: Signed with Addenda ADDENDUM by Deja [...] lung scan ordered for March 2025. (3) LOUISE (obstructive sleep apnea): Status: Chronic Comment: Noncompliant [...] asthma Plan Details Follow Up: 4 Months ([facility]) HPI 3 M FU Chief Complaint: [...] at rabia (more content not included)... Normal [facility] 6 Minute Walk Teston 04-14-2 024 6 Minute Walk Test y [facility] Pulmonary Services/Neurology [address] [place] [address] MR#: [id number] Acct: [id number] Name: YENNY GARCIA Rep #: [id number] : 1970 53 From: Tavares Hawk DO Referring Dr: Ebony Espinoza POT RELINER POT RELINER-C Status: REG CLI Location: PSN Date: Sex: [...] CC: Date Dictated: 04/14/24946 Date Transcribed: 04/14/24946 Beauty Consultant: Dr. Tavares Hawk DO Signed Normal [facility] Bedside Glucose (Point of Ca re)on 04-12-2024 Glucose [Mass/Vol] 223 mg/dL Normal 65-110 [facility] Comment on above: Performed By: #### [place] [facility] [place] #### [address] [id number] CDSon 04-12-2024 CDS DATE: 04/12/2024 HOSPITAL COURSE: [...] in 24 hours for followup. 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 PREOPERATIVE DIAGNOSIS: Cataract, left eye. OPERATION: Phacoemulsification, left eye, placement of posterior chamber intraocular lens. ANESTHESIA: MAC. DIRECTOR OF RESOURCE DEVELOPMENT: None. COMPLICATIONS: None. LOSS OF BLOOD: None. [...] the procedure well. No complications. TM/TAR TID: [id number] DICTATING PROVIDER: Ananya Gibson [facility] Low Dose CT Lung Screeningon 04-05-[address] Lung Screening [facility] Imaging Services [address] [place] [address] Lung Screening MR#: [id number] Acct: [id number] Name: YENNY GARCIA Rep #: [id number] : 1970 M 53 From: Rodney Maldonado MD PCP: DARIUS Zapata Status: [facility] Study: Low Dose CT Lung Screening Date of Exam: 04/05 Exam# [id number] Ordering Dr: Eboyn Espinoza NP POT RELINER-C [id number] STUDY: LOW DOSE CT LUNG CANCER SCREENING [...] EDT , CC: DARIUS Espinoza; DARIUS Hernandez Beauty Consultant: Signed Normal [facility] Basic Metabolic Panelon 07-0 Anion gap [Moles/Vol] 12.8 mmol/L Normal 8.0-16.0 [facility] Comment on above: Performed By: #### B MP ####[facility] [place] [address] Calcium [Mass/Vol] 8.4 mg/dL Normal 8.2-10.0 [facility] Comment on above: Performed By: #### B MP ####[facility] [place] [address] Chloride [Moles/Vol] 105 mmol/L Normal 94-110 [facility] Comment on above: Performed By: #### B MP ####[facility] [place] [address] CO2 [Moles/Vol] 24 mmol/L Normal 21-34 [facility] Comment on above: Performed By: #### B MP ####[place] [place] [address] Creatinine [Mass/Vol] 0.80 mg/dL Normal 0.50-1.17 [facility] Comment on above: Performed By: #### B MP ####[address] [place] [address] EGFR Other Races >60 Normal >60 [facility] Comment on above: Performed By: #### B MP ####[address] [place] [address] GFR/1.73 sq M.predicted among blacks MDRD (S/P/Bld) [Vol rate/Area] mL/min/{1.73_m2} Normal >60 [facility] Comment on above: Result Comment: Distribution Estimator aguilar Kidney Disease less than 60 mL/min/1.73 m2 Kidney Failure less than 15 mL/min/1.73 m2 Average estimated GFR by age: 50-59 years 93 mL/min/1.73 m2 Performed By: #### B MP ####[facility] [place] [address] Glucose [Mass/Vol] 180 mg/dL High 65-100 [facility] Comment on above: Performed By: #### B MP ####[facility] [place] [address] Potassium [Moles/Vol] 3.8 mmol/L Normal 3.3-5.1 [facility] Comment on above: Performed By: #### B MP ####[facility] [place] [address] Sodium [Moles/Vol] 138 mmol/L Normal 132-145 [facility] Comment on above: Performed By: #### B MP ####[facility] [place] [address] Urea nitrogen [Mass/Vol] 16.0 mg/dL Normal 3.2-26.9 [facility] Comment on above: Performed By: #### B MP ####[facility] [place] [address] Urea nitrogen/Creatinine [Mass ratio] 20 mg/mg Normal 6-20 [facility] Comment on above: Performed By: #### B MP ####[facility] [place] [address] XR CHEST 2 VIEWSon 2 XR CHEST [...] 07/18/2022 11:02:14 AM Ordering Provider: DEVONTE HAWK [facility] ([place]) XR CHEST 2 VIEWSon 2 XR CHEST [...] 06/21/2022 8:57:02 PM Ordering Provider: DEVONTE HAWK [facility] ([place]) XR CHEST 2 VIEWSon XR CHEST 2 [...] 02/24/2022 4:50:37 PM Ordering Provider: MELVIN BARBOSA [facility] ([place]) .GFRon 02-11-2022 GFR >60 [facility] ([place]) Comment on above: Result Comment: GFR Population [...] FR, MG, BMP, CBC, ADIFF, ANEU #### [address] [address] GFR Non- >60 Normal [facility] ([place]) Comment on above: Result Comment: GFR Population [...] FR, MG, BMP, CBC, ADIFF, ANEU #### [address] [address] BMPon 02-11-2022 BUN/Creatinine Ratio 23.2 ratio High 10.0-22.0 [facility] ([place]) Comment on above: Performed By: #### G FR, MG, BMP, CBC, ADIFF, ANEU #### [address] [address] Calcium [Mass/Vol] 10.5 mg/dL High 8.7-10.4 [facility] ([place]) Comment on above: Performed By: #### G FR, MG, BMP, CBC, ADIFF, ANEU #### [address] [address] Chloride [Moles/Vol] 101 mmol/L Normal 98-110 [facility] ([place]) Comment on above: Performed By: #### G FR, MG, BMP, CBC, ADIFF, ANEU #### [address] [address] CO2 [Moles/Vol] 28 mmol/L Normal 22-32 [facility] ([place]) Comment on above: Performed By: #### G FR, MG, BMP, CBC, ADIFF, ANEU #### [address] [address] Creatinine [Mass/Vol] 0.99 mg/dL Normal 0.60-1.40 [facility] ([place]) Comment on above: Performed By: #### G FR, MG, BMP, CBC, ADIFF, ANEU #### [address] [address] Electrolyte Balance 11.0 mEq/L Normal 4.0-15.0 [facility] ([place]) Comment on above: Performed By: #### G FR, MG, BMP, CBC, ADIFF, ANEU #### [place] [id number] Glucose [Mass/Vol] 229 mg/dL High 70-110 [facility] ([place]) Comment on above: Performed By: #### G FR, MG, BMP, CBC, ADIFF, ANEU #### [address] [address] Potassium [Moles/Vol] 4.8 mmol/L Normal 3.5-5.0 [facility] ([place]) Comment on above: Performed By: #### G FR, MG, BMP, CBC, ADIFF, ANEU #### [address] [address] Sodium [Moles/Vol] 140 mmol/L Normal 136-145 [facility] ([place]) Comment on above: Performed By: #### G FR, MG, BMP, CBC, ADIFF, ANEU #### [address] [address] Urea nitrogen [Mass/Vol] 23.0 mg/dL High 8.0-22.0 [facility] ([place]) Comment on above: Performed By: #### G FR, MG, BMP, CBC, ADIFF, ANEU #### [facility] [address] [place] [address] LABORATORYOrdered By: SYSTEM SYSTEM on 02-11-2022 Calcium [...] 02/11/2022 6:27:59 PM Ordering Provider: MELVIN BARBOSA [facility] ([place]) .GFRon 02-06-2022 GFR >60 [facility] ([place]) Comment on above: Result Comment: GFR Population [...] C BC, GFR, ANEU, CMP, ADIFF #### [place] [address] GFR Non- >60 Normal [facility] ([place]) Comment on above: Result Comment: GFR Population [...] C BC, GFR, ANEU, CMP, ADIFF #### [address] [address] BMPon 02-06-2022 BUN/Creatinine Ratio 32.9 ratio High 10.0-22.0 [facility] ([place]) Comment on above: Performed By: #### C BC, GFR, ANEU, CMP, ADIFF #### [address] [address] Calcium [Mass/Vol] 10.1 mg/dL Normal 8.7-10.4 [facility] ([place]) Comment on above: Performed By: #### C BC, GFR, ANEU, CMP, ADIFF #### [address] [address] Chloride [Moles/Vol] 98 mmol/L Normal 98-110 [facility] ([place]) Comment on above: Performed By: #### C BC, GFR, ANEU, CMP, ADIFF #### [address] [address] CO2 [Moles/Vol] 32 mmol/L Normal 22-32 [facility] ([place]) Comment on above: Performed By: #### C BC, GFR, ANEU, CMP, ADIFF #### [address] [address] Creatinine [Mass/Vol] 0.85 mg/dL Normal 0.60-1.40 [facility] ([place]) Comment on above: Performed By: #### C BC, GFR, ANEU, CMP, ADIFF #### [address] [address] Electrolyte Balance 5.0 mEq/L Normal 4.0-15.0 [facility] ([place]) Comment on above: Performed By: #### C BC, GFR, ANEU, CMP, ADIFF #### [address] [address] Glucose [Mass/Vol] 130 mg/dL High 70-110 [facility] ([place]) Comment on above: Performed By: #### C BC, GFR, ANEU, CMP, ADIFF #### [address] [address] Potassium [Moles/Vol] 3.5 mmol/L Normal 3.5-5.0 [facility] ([place]) Comment on above: Result Comment: Spec imen slightly hemolyzed. Performed By: #### C BC, GFR, ANEU, CMP, ADIFF #### [facility] [address] [place] [address] Sodium [Moles/Vol] 135 mmol/L Low 136-145 [facility] ([place]) Comment on above: Performed By: #### C BC, GFR, ANEU, CMP, ADIFF #### [facility] [address] [place] [address] Urea nitrogen [Mass/Vol] 28.0 mg/dL High 8.0-22.0 [facility] ([place]) Comment on above: Performed By: #### C BC, GFR, ANEU, CMP, ADIFF #### [address] [address] LABORATORYOrdered By: Agustin oDe on 02-06-2022 Blood Glucose Testing Reason Routine (02/06/22 11:28 AM) [facility] Work Phone: Glucose [Mass/Vol] 139 mg/dL Invalid Interpretation Code 70 - 110 mg/dL [facility] Work Phone: LABORATORYOrdered By: SYSTEM SYSTEM on [...] 02/06/2022 6:35:22 AM Ordering Provider: JENNY LAWRENCE [facility] ([place]) .GFRon 02-05-2022 GFR >60 [facility] ([place]) Comment on above: Result Comment: GFR Population [...] C BC, GFR, ANEU, CMP, ADIFF #### [address] [address] GFR Non- >60 Normal [facility] ([place]) Comment on above: Result Comment: GFR Population [...] C BC, GFR, ANEU, CMP, ADIFF #### [address] [address] [facility] 02-05-2022 BUN/Creatinine Ratio 24.5 ratio High 10.0-22.0 [facility] ([place]) Comment on above: Performed By: #### C BC, GFR, ANEU, CMP, ADIFF #### [address] [address] Calcium [Mass/Vol] 10.0 mg/dL Normal 8.7-10.4 [facility] ([place]) Comment on above: Performed By: #### C BC, GFR, ANEU, CMP, ADIFF #### [address] [address] Chloride [Moles/Vol] 98 mmol/L Normal 98-110 [facility] ([place]) Comment on above: Performed By: #### C BC, GFR, ANEU, CMP, ADIFF #### [address] [address] CO2 [Moles/Vol] 32 mmol/L Normal 22-32 [facility] ([place]) Comment on above: Performed By: #### C BC, GFR, ANEU, CMP, ADIFF #### [address] [address] Creatinine [Mass/Vol] 0.94 mg/dL Normal 0.60-1.40 [facility] ([place]) Comment on above: Performed By: #### C BC, GFR, ANEU, CMP, ADIFF #### [address] [address] Electrolyte Balance 5.0 mEq/L Normal 4.0-15.0 [facility] ([place]) Comment on above: Performed By: #### C BC, GFR, ANEU, CMP, ADIFF #### [address] [address] Glucose [Mass/Vol] 140 mg/dL High 70-110 [facility] ([place]) Comment on above: Performed By: #### C BC, GFR, ANEU, CMP, ADIFF #### [address] [address] Potassium [Moles/Vol] 3.6 mmol/L Normal 3.5-5.0 [facility] ([place]) Comment on above: Performed By: #### C BC, GFR, ANEU, CMP, ADIFF #### [address] [address] Sodium [Moles/Vol] 135 mmol/L Low 136-145 [facility] ([place]) Comment on above: Performed By: #### C BC, GFR, ANEU, CMP, ADIFF #### [address] [address] Urea nitrogen [Mass/Vol] 23.0 mg/dL High 8.0-22.0 [facility] ([place]) Comment on above: Performed By: #### C BC, GFR, ANEU, CMP, ADIFF #### [address] [address] LABORATORYOrdered By: Vincenzo Parra on 02-05-2022 Blood Glucose Testing Reason Routine (02/05/22 9:03 PM) [facility] Work Phone: Glucose [Mass/Vol] 187 mg/dL Invalid Interpretation Code 70 - 110 mg/dL [facility] Work Phone: Blood Glucose Testing Reason Routine (02/05/22 4:02 PM) [facility] Work Phone: Glucose [Mass/Vol] 164 mg/dL Invalid Interpretation Code 70 - 110 mg/dL [facility] Work Phone: LABORATORYOrdered By: SYSTEM SYSTEM on [...] 02/05/2022 9:43:05 AM Ordering Provider: JENNY Gibson [facility] ([place]) .Auto Diffon 02-04-2022 Basophil, Absolute 0.10 10 3/mcL Normal 0.00-0.27 [facility] ([place]) Comment on above: Performed By: #### G FR, MG, BMP, CBC, ADIFF, ANEU #### [address] [address] Basophils/100 WBC (Bld) 0.6 % Normal 0.0-2.5 [facility] ([place]) Comment on above: Performed By: #### G FR, MG, BMP, CBC, ADIFF, ANEU #### [address] [address] Eosinophil, Absolute 0.20 10 3/mcL Normal 0.00-0.65 [facility] ([place]) Comment on above: Performed By: #### G FR, MG, BMP, CBC, ADIFF, ANEU #### [address] [address] Eosinophils/100 WBC (Bld) 2.0 % Normal 0.0-6.0 [facility] ([place]) Comment on above: Performed By: #### G FR, MG, BMP, CBC, ADIFF, ANEU #### [address] [address] Lymphocyte, Absolute 1.30 10 3/mcL Normal 0.90-4.32 [facility] ([place]) Comment on above: Performed By: #### G FR, MG, BMP, CBC, ADIFF, ANEU #### [address] [address] Lymphocytes/100 WBC (Bld) 14.7 % Low 20.0-40.0 [facility] ([place]) Comment on above: Performed By: #### G FR, MG, BMP, CBC, ADIFF, ANEU #### [address] [address] Monocyte, Absolute 0.60 10 3/mcL Normal 0.09-1.40 [facility] ([place]) Comment on above: Performed By: #### G FR, MG, BMP, CBC, ADIFF, ANEU #### [address] [address] Monocytes/100 WBC (Bld) 7.0 % Normal 2.0-13.0 [facility] ([place]) Comment on above: Performed By: #### G FR, MG, BMP, CBC, ADIFF, ANEU #### [address] [address] Neutrophils/100 WBC (Bld) 75.7 % High 50.0-75.0 [facility] ([place]) Comment on above: Performed By: #### G FR, MG, BMP, CBC, ADIFF, ANEU #### [address] [address] .GFRon 02-04-2022 GFR >60 Normal [facility] ([place]) Comment on above: Result Comment: GFR Population [...] FR, MG, BMP, CBC, ADIFF, ANEU #### [address] [address] GFR Non- >60 Normal [facility] ([place]) Comment on above: Result Comment: GFR Population [...] FR, MG, BMP, CBC, ADIFF, ANEU #### [place] [address] .NEUABSon 02-04-2022 Neutrophil, Absolute 6.80 10 3/mcL Normal 2.25-8.10 [facility] ([place]) Comment on above: Performed By: #### G FR, MG, BMP, CBC, ADIFF, ANEU #### [address] [address] CBCon 02-04-2022 Erythrocyte distribution width (RBC) [Ratio] 13.2 % Normal 11.5-15.5 [facility] ([place]) Comment on above: Performed By: #### G FR, MG, BMP, CBC, ADIFF, ANEU #### [place] [address] Hematocrit (Bld) [Volume fraction] 33.6 % Low 40.0-52.0 [facility] ([place]) Comment on above: Performed By: #### G FR, MG, BMP, CBC, ADIFF, ANEU #### [place] [address] Hgb 11.8 G/dL Low 13.0-17.5 [facility] ([place]) Comment on above: Performed By: #### G FR, MG, BMP, CBC, ADIFF, ANEU #### [place] [address] MCH (RBC) [Entitic mass] 31.4 pg Normal 27.0-33.0 [facility] ([place]) Comment on above: Performed By: #### G FR, MG, BMP, CBC, ADIFF, ANEU #### [place] [address] MCHC 35.2 G/dL Normal 32.0-36.0 [facility] ([place]) Comment on above: Performed By: #### G FR, MG, BMP, CBC, ADIFF, ANEU #### [place] [address] MCV (RBC) [Entitic vol] 89.3 fL Normal 81.0-100.0 [facility] ([place]) Comment on above: Performed By: #### G FR, MG, BMP, CBC, ADIFF, ANEU #### [place] [address] Platelet 274 10 3/mcL Normal 150-450 [facility] ([place]) Comment on above: Performed By: #### G FR, MG, BMP, CBC, ADIFF, ANEU #### [place] [address] Platelet mean volume (Bld) [Entitic vol] 7.9 fL Normal 6.4-10.5 [facility] ([place]) Comment on above: Performed By: #### G FR, MG, BMP, CBC, ADIFF, ANEU #### [place] [address] RBC 3.76 10 6/mcL Low 4.50-6.00 [facility] ([place]) Comment on above: Performed By: #### G FR, MG, BMP, CBC, ADIFF, ANEU #### [address] [address] WBC 8.90 10 3/mcL Normal 4.50-10.80 [facility] ([place]) Comment on above: Performed By: #### G FR, MG, BMP, CBC, ADIFF, ANEU #### [address] [address] CMPon 02-04-2022 Albumin Level 3.6 G/dL Normal 3.2-4.8 [facility] ([place]) Comment on above: Performed By: #### G FR, MG, BMP, CBC, ADIFF, ANEU #### [place] [address] Albumin/Globulin [Mass ratio] 1.3 {ratio} Normal 0.9-1.6 [facility] ([place]) Comment on above: Performed By: #### G FR, MG, BMP, CBC, ADIFF, ANEU #### [place] [address] ALP [Catalytic activity/Vol] 76 U/L Normal 38-126 [facility] ([place]) Comment on above: Performed By: #### G FR, MG, BMP, CBC, ADIFF, ANEU #### [place] [address] ALT [Catalytic activity/Vol] 25 U/L Normal 12-55 [facility] ([place]) Comment on above: Performed By: #### G FR, MG, BMP, CBC, ADIFF, ANEU #### [place] [id number] AST [Catalytic activity/Vol] 20 U/L Normal 8-34 [facility] ([place]) Comment on above: Performed By: #### G FR, MG, BMP, CBC, ADIFF, ANEU #### [place] [address] Bili Total 0.60 mg/dL Normal 0.20-1.20 [facility] ([place]) Comment on above: Result Comment: Use of this assay is not recommended for patients undergoing treatment with eltrombopag due to the potential for falsely elevated results. Performed By: #### G FR, MG, BMP, CBC, ADIFF, ANEU #### [facility] [address] [place], [place] [address] BUN/Creatinine Ratio 21.8 ratio Normal 10.0-22.0 [facility] ([place]) Comment on above: Performed By: #### G FR, MG, BMP, CBC, ADIFF, ANEU #### [address] [address] Calcium [Mass/Vol] 8.9 mg/dL Normal 8.7-10.4 [facility] ([place]) Comment on above: Performed By: #### G FR, MG, BMP, CBC, ADIFF, ANEU #### [place] [address] Chloride [Moles/Vol] 102 mmol/L Normal 98-110 [facility] ([place]) Comment on above: Performed By: #### G FR, MG, BMP, CBC, ADIFF, ANEU #### [place] [id number] CO2 [Moles/Vol] 26 mmol/L Normal 22-32 [facility] ([place]) Comment on above: Performed By: #### G FR, MG, BMP, CBC, ADIFF, ANEU #### [place] [address] Creatinine [Mass/Vol] 0.78 mg/dL Normal 0.60-1.40 [facility] ([place]) Comment on above: Performed By: #### G FR, MG, BMP, CBC, ADIFF, ANEU #### [place] [id number] Electrolyte Balance 7.0 mEq/L Normal 4.0-15.0 [facility] ([place]) Comment on above: Performed By: #### G FR, MG, BMP, CBC, ADIFF, ANEU #### [place] [id number] Globulin 2.7 G/dL Normal 1.5-3.8 [facility] ([place]) Comment on above: Performed By: #### G FR, MG, BMP, CBC, ADIFF, ANEU #### [place] [id number] Glucose [Mass/Vol] 130 mg/dL High 70-110 [facility] ([place]) Comment on above: Performed By: #### G FR, MG, BMP, CBC, ADIFF, ANEU #### [place] [address] Potassium [Moles/Vol] 4.0 mmol/L Normal 3.5-5.0 [facility] ([place]) Comment on above: Performed By: #### G FR, MG, BMP, CBC, ADIFF, ANEU #### [place] [address] Sodium [Moles/Vol] 135 mmol/L Low 136-145 [facility] ([place]) Comment on above: Performed By: #### G FR, MG, BMP, CBC, ADIFF, ANEU #### [place] [address] Total Protein 6.3 G/dL Normal 5.7-8.2 [facility] ([place]) Comment on above: Result Comment: No te - New Reference Range in effect 20 Performed By: #### G FR, MG, BMP, CBC, ADIFF, ANEU #### [place] [address] Urea nitrogen [Mass/Vol] 17.0 mg/dL Normal 8.0-22.0 [facility] ([place]) Comment on above: Performed By: #### G FR, MG, BMP, CBC, ADIFF, ANEU #### [place] [address] LABORATORYOrdered By: SYSTEM SYSTEM on 02-04-2022 Albumin [...] 02/04/2022 7:45:46 AM Ordering Provider: JENNY Gibson [facility] ([place]) .Auto Diffon 02-03-2022 Basophil, Absolute 0.00 10 3/mcL Normal 0.00-0.27 [facility] ([place]) Comment on above: Performed By: #### C BC, GFR, ANEU, CMP, ADIFF #### [address] [address] Basophils/100 WBC (Bld) 0.6 % Normal 0.0-2.5 [facility] ([place]) Comment on above: Performed By: #### C BC, GFR, ANEU, CMP, ADIFF #### [address] [address] Eosinophil, Absolute 0.20 10 3/mcL Normal 0.00-0.65 [facility] ([place]) Comment on above: Performed By: #### C BC, GFR, ANEU, CMP, ADIFF #### [address] [address] Eosinophils/100 WBC (Bld) 2.4 % Normal 0.0-6.0 [facility] ([place]) Comment on above: Performed By: #### C BC, GFR, ANEU, CMP, ADIFF #### [address] [address] Lymphocyte, Absolute 1.70 10 3/mcL Normal 0.90-4.32 [facility] ([place]) Comment on above: Performed By: #### C BC, GFR, ANEU, CMP, ADIFF #### [address] [address] Lymphocytes/100 WBC (Bld) 21.7 % Normal 20.0-40.0 [facility] ([place]) Comment on above: Performed By: #### C BC, GFR, ANEU, CMP, ADIFF #### [address] [address] Monocyte, Absolute 0.50 10 3/mcL Normal 0.09-1.40 [facility] ([place]) Comment on above: Performed By: #### C BC, GFR, ANEU, CMP, ADIFF #### [address] [address] Monocytes/100 WBC (Bld) 7.0 % Normal 2.0-13.0 [facility] ([place]) Comment on above: Performed By: #### C BC, GFR, ANEU, CMP, ADIFF #### [address] [address] Neutrophils/100 WBC (Bld) 68.3 % Normal 50.0-75.0 [facility] ([place]) Comment on above: Performed By: #### C BC, GFR, ANEU, CMP, ADIFF #### [address] [address] .GFRon 02-03-2022 GFR >60 Normal [facility] ([place]) Comment on above: Result Comment: GFR Population [...] C BC, GFR, ANEU, CMP, ADIFF #### [address] [address] GFR Non- >60 Normal [facility] ([place]) Comment on above: Result Comment: GFR Population [...] C BC, GFR, ANEU, CMP, ADIFF #### [address] [address] .NEUABSon 02-03-2022 Neutrophil, Absolute 5.20 10 3/mcL Normal 2.25-8.10 [facility] ([place]) Comment on above: Performed By: #### C BC, GFR, ANEU, CMP, ADIFF #### [address] [address] BMPon 02-03-2022 BUN/Creatinine Ratio 26.6 ratio High 10.0-22.0 [facility] ([place]) Comment on above: Performed By: #### C BC, GFR, ANEU, CMP, ADIFF #### [address] [address] Calcium [Mass/Vol] 8.9 mg/dL Normal 8.7-10.4 [facility] ([place]) Comment on above: Performed By: #### C BC, GFR, ANEU, CMP, ADIFF #### [address] [address] Chloride [Moles/Vol] 103 mmol/L Normal 98-110 [facility] ([place]) Comment on above: Performed By: #### C BC, GFR, ANEU, CMP, ADIFF #### [address] [address] CO2 [Moles/Vol] 27 mmol/L Normal 22-32 [facility] ([place]) Comment on above: Performed By: #### C BC, GFR, ANEU, CMP, ADIFF #### [address] [address] Creatinine [Mass/Vol] 0.94 mg/dL Normal 0.60-1.40 [facility] ([place]) Comment on above: Performed By: #### C BC, GFR, ANEU, CMP, ADIFF #### [address] [address] Electrolyte Balance 6.0 mEq/L Normal 4.0-15.0 [facility] ([place]) Comment on above: Performed By: #### C BC, GFR, ANEU, CMP, ADIFF #### [address] [address] Glucose [Mass/Vol] 139 mg/dL High 70-110 [facility] ([place]) Comment on above: Performed By: #### C BC, GFR, ANEU, CMP, ADIFF #### [address] [address] Potassium [Moles/Vol] 3.8 mmol/L Normal 3.5-5.0 [facility] ([place]) Comment on above: Performed By: #### C BC, GFR, ANEU, CMP, ADIFF #### [address] [address] Sodium [Moles/Vol] 136 mmol/L Normal 136-145 [facility] ([place]) Comment on above: Performed By: #### C BC, GFR, ANEU, CMP, ADIFF #### [place] [address] Urea nitrogen [Mass/Vol] 25.0 mg/dL High 8.0-22.0 [facility] ([place]) Comment on above: Performed By: #### C BC, GFR, ANEU, CMP, ADIFF #### [place] [address] CBCon 02-03-2022 Erythrocyte distribution width (RBC) [Ratio] 13.2 % Normal 11.5-15.5 [facility] ([place]) Comment on above: Performed By: #### C BC, GFR, ANEU, CMP, ADIFF #### [place] [address] Hematocrit (Bld) [Volume fraction] 33.3 % Low 40.0-52.0 [facility] ([place]) Comment on above: Performed By: #### C BC, GFR, ANEU, CMP, ADIFF #### [place] [address] Hgb 11.7 G/dL Low 13.0-17.5 [facility] ([place]) Comment on above: Performed By: #### C BC, GFR, ANEU, CMP, ADIFF #### [place] [address] MCH (RBC) [Entitic mass] 31.4 pg Normal 27.0-33.0 [facility] ([place]) Comment on above: Performed By: #### C BC, GFR, ANEU, CMP, ADIFF #### [place] [address] MCHC 35.0 G/dL Normal 32.0-36.0 [facility] ([place]) Comment on above: Performed By: #### C BC, GFR, ANEU, CMP, ADIFF #### [place] [address] MCV (RBC) [Entitic vol] 89.6 fL Normal 81.0-100.0 [facility] ([place]) Comment on above: Performed By: #### C BC, GFR, ANEU, CMP, ADIFF #### [place] [address] Platelet 204 10 3/mcL Normal 150-450 [facility] ([place]) Comment on above: Performed By: #### C BC, GFR, ANEU, CMP, ADIFF #### [place] [address] Platelet mean volume (Bld) [Entitic vol] 8.1 fL Normal 6.4-10.5 [facility] ([place]) Comment on above: Performed By: #### C BC, GFR, ANEU, CMP, ADIFF #### [place] [address] RBC 3.72 10 6/mcL Low 4.50-6.00 [facility] ([place]) Comment on above: Performed By: #### C BC, GFR, ANEU, CMP, ADIFF #### [place] [address] WBC 7.70 10 3/mcL Normal 4.50-10.80 [facility] ([place]) Comment on above: Performed By: #### C BC, GFR, ANEU, CMP, ADIFF #### [place] [address] Deni 02-03-2022 Potassium [Moles/Vol] 4.0 mmol/L Normal 3.5-5.0 [facility] ([place]) Comment on above: Performed By: #### G FR, MG, BMP, CBC, ADIFF, ANEU #### [place] [address] LABORATORYOrdered By: SYSTEM SYSTEM on 02-03-2022 Basophils [...] 05-16-2022 Magnesium [Mass/Vol] 1.9 mg/dL Normal 1.6-2.4 [facility] ([place]) Comment on above: Performed By: #### G FR, MG, BMP, CBC, ADIFF, ANEU #### [address] [address] XR CHEST 2 VIEWSon 2 XR CHEST [...] 02/03/2022 8:10:52 AM Ordering Provider: JENNY Gibson [facility] ([place]) .Auto Diffon 02-02-2022 Basophil, Absolute 0.00 10 3/mcL Normal 0.00-0.27 [facility] ([place]) Comment on above: Performed By: #### C BC, GFR, ANEU, CMP, ADIFF #### [address] [address] Basophils/100 WBC (Bld) 0.6 % Normal 0.0-2.5 [facility] ([place]) Comment on above: Performed By: #### C BC, GFR, ANEU, CMP, ADIFF #### [address] [address] Eosinophil, Absolute 0.20 10 3/mcL Normal 0.00-0.65 [facility] ([place]) Comment on above: Performed By: #### C BC, GFR, ANEU, CMP, ADIFF #### [address] [address] Eosinophils/100 WBC (Bld) 2.0 % Normal 0.0-6.0 [facility] ([place]) Comment on above: Performed By: #### C BC, GFR, ANEU, CMP, ADIFF #### [address] [address] Lymphocyte, Absolute 1.00 10 3/mcL Normal 0.90-4.32 [facility] ([place]) Comment on above: Performed By: #### C BC, GFR, ANEU, CMP, ADIFF #### [address] [address] Lymphocytes/100 WBC (Bld) 12.1 % Low 20.0-40.0 [facility] ([place]) Comment on above: Performed By: #### C BC, GFR, ANEU, CMP, ADIFF #### [address] [address] Monocyte, Absolute 0.70 10 3/mcL Normal 0.09-1.40 [facility] ([place]) Comment on above: Performed By: #### C BC, GFR, ANEU, CMP, ADIFF #### [address] [address] Monocytes/100 WBC (Bld) 8.8 % Normal 2.0-13.0 [facility] ([place]) Comment on above: Performed By: #### C BC, GFR, ANEU, CMP, ADIFF #### [address] [address] Neutrophils/100 WBC (Bld) 76.5 % High 50.0-75.0 [facility] ([place]) Comment on above: Performed By: #### C BC, GFR, ANEU, CMP, ADIFF #### [address] [address] .GFRon 02-02-2022 GFR >60 Normal [facility] ([place]) Comment on above: Result Comment: GFR [...] C BC, GFR, ANEU, CMP, ADIFF #### [address] [address] GFR Non- >60 Normal [facility] ([place]) Comment on above: Result Comment: GFR Population [...] C BC, GFR, ANEU, CMP, ADIFF #### [address] [address] .NEUABSon 02-02-2022 Neutrophil, Absolute 6.20 10 3/mcL Normal 2.25-8.10 [facility] ([place]) Comment on above: Performed By: #### C BC, GFR, ANEU, CMP, ADIFF #### [address] [address] BMPon 02-02-2022 BUN/Creatinine Ratio 20.2 ratio Normal 10.0-22.0 [facility] ([place]) Comment on above: Performed By: #### C BC, GFR, ANEU, CMP, ADIFF #### [address] [address] Calcium [Mass/Vol] 8.8 mg/dL Normal 8.7-10.4 [facility] ([place]) Comment on above: Performed By: #### C BC, GFR, ANEU, CMP, ADIFF #### [address] [address] Chloride [Moles/Vol] 104 mmol/L Normal 98-110 [facility] ([place]) Comment on above: Performed By: #### C BC, GFR, ANEU, CMP, ADIFF #### [address] [address] CO2 [Moles/Vol] 27 mmol/L Normal 22-32 [facility] ([place]) Comment on above: Performed By: #### C BC, GFR, ANEU, CMP, ADIFF #### [address] [address] Creatinine [Mass/Vol] 0.94 mg/dL Normal 0.60-1.40 [facility] ([place]) Comment on above: Performed By: #### C BC, GFR, ANEU, CMP, ADIFF #### [address] [address] Electrolyte Balance 4.0 mEq/L Normal 4.0-15.0 [facility] ([place]) Comment on above: Performed By: #### C BC, GFR, ANEU, CMP, ADIFF #### [address] [address] Glucose [Mass/Vol] 114 mg/dL High 70-110 [facility] ([place]) Comment on above: Performed By: #### C BC, GFR, ANEU, CMP, ADIFF #### [address] [address] Potassium [Moles/Vol] 3.9 mmol/L Normal 3.5-5.0 [facility] ([place]) Comment on above: Performed By: #### C BC, GFR, ANEU, CMP, ADIFF #### [address] [address] Sodium [Moles/Vol] 135 mmol/L Low 136-145 [facility] ([place]) Comment on above: Performed By: #### C BC, GFR, ANEU, CMP, ADIFF #### [place] [address] Urea nitrogen [Mass/Vol] 19.0 mg/dL Normal 8.0-22.0 [facility] ([place]) Comment on above: Performed By: #### C BC, GFR, ANEU, CMP, ADIFF #### [address] [address] CBCon 02-02-2022 Erythrocyte distribution width (RBC) [Ratio] 13.2 % Normal 11.5-15.5 [facility] ([place]) Comment on above: Performed By: #### C BC, GFR, ANEU, CMP, ADIFF #### [place] [address] Hematocrit (Bld) [Volume fraction] 34.0 % Low 40.0-52.0 [facility] ([place]) Comment on above: Performed By: #### C BC, GFR, ANEU, CMP, ADIFF #### [place] [address] Hgb 11.5 G/dL Low 13.0-17.5 [facility] ([place]) Comment on above: Performed By: #### C BC, GFR, ANEU, CMP, ADIFF #### [place] [address] MCH (RBC) [Entitic mass] 30.7 pg Normal 27.0-33.0 [facility] ([place]) Comment on above: Performed By: #### C BC, GFR, ANEU, CMP, ADIFF #### [place] [address] MCHC 34.0 G/dL Normal 32.0-36.0 [facility] ([place]) Comment on above: Performed By: #### C BC, GFR, ANEU, CMP, ADIFF #### [place] [address] MCV (RBC) [Entitic vol] 90.4 fL Normal 81.0-100.0 [facility] ([place]) Comment on above: Performed By: #### C BC, GFR, ANEU, CMP, ADIFF #### [place] [address] Platelet 173 10 3/mcL Normal 150-450 [facility] ([place]) Comment on above: Performed By: #### C BC, GFR, ANEU, CMP, ADIFF #### [place] [address] Platelet mean volume (Bld) [Entitic vol] 7.6 fL Normal 6.4-10.5 [facility] ([place]) Comment on above: Performed By: #### C BC, GFR, ANEU, CMP, ADIFF #### [place] [address] RBC 3.76 10 6/mcL Low 4.50-6.00 [facility] ([place]) Comment on above: Performed By: #### C BC, GFR, ANEU, CMP, ADIFF #### [place] [address] WBC 8.10 10 3/mcL Normal 4.50-10.80 [facility] ([place]) Comment on above: Performed By: #### C BC, GFR, ANEU, CMP, ADIFF #### [place] [address] Deni 02-02-2022 Potassium [Moles/Vol] 4.2 mmol/L Normal 3.5-5.0 [facility] ([place]) Comment on above: Performed By: #### C BC, GFR, ANEU, CMP, ADIFF #### [place] [address] LABORATORYOrdered By: SYSTEM SYSTEM on 02-02-2022 Magnesium [...] 02/02/2022 8:15:36 AM Ordering Provider: JENNY Gibson [facility] ([place]) .Auto Diffon 02-01-2022 Basophil, Absolute 0.00 10 3/mcL Normal 0.00-0.27 [facility] ([place]) Comment on above: Performed By: #### C BC, GFR, ANEU, CMP, ADIFF #### [address] [address] Basophils/100 WBC (Bld) 0.3 % Normal 0.0-2.5 [facility] ([place]) Comment on above: Performed By: #### C BC, GFR, ANEU, CMP, ADIFF #### [address] [address] Eosinophil, Absolute 0.00 10 3/mcL Normal 0.00-0.65 [facility] ([place]) Comment on above: Performed By: #### C BC, GFR, ANEU, CMP, ADIFF #### [address] [address] Eosinophils/100 WBC (Bld) 0.5 % Normal 0.0-6.0 [facility] ([place]) Comment on above: Performed By: #### C BC, GFR, ANEU, CMP, ADIFF #### [address] [address] Lymphocyte, Absolute 0.50 10 3/mcL Low 0.90-4.32 [facility] ([place]) Comment on above: Performed By: #### C BC, GFR, ANEU, CMP, ADIFF #### [address] [address] Lymphocytes/100 WBC (Bld) 5.2 % Low 20.0-40.0 [facility] ([place]) Comment on above: Performed By: #### C BC, GFR, ANEU, CMP, ADIFF #### [address] [address] Monocyte, Absolute 0.50 10 3/mcL Normal 0.09-1.40 [facility] ([place]) Comment on above: Performed By: #### C BC, GFR, ANEU, CMP, ADIFF #### [address] [address] Monocytes/100 WBC (Bld) 5.1 % Normal 2.0-13.0 [facility] ([place]) Comment on above: Performed By: #### C BC, GFR, ANEU, CMP, ADIFF #### [address] [address] Neutrophils/100 WBC (Bld) 88.9 % High 50.0-75.0 [facility] ([place]) Comment on above: Performed By: #### C BC, GFR, ANEU, CMP, ADIFF #### [address] [address] .GFRon 02-01-2022 GFR >60 Normal [facility] ([place]) Comment on above: Result Comment: GFR Population [...] C BC, GFR, ANEU, CMP, ADIFF #### [address] [address] GFR Non- >60 Normal [facility] ([place]) Comment on above: Result Comment: GFR Population [...] C BC, GFR, ANEU, CMP, ADIFF #### [place] [address] .NEUABSon 02-01-2022 Neutrophil, Absolute 8.90 10 3/mcL High 2.25-8.10 [facility] ([place]) Comment on above: Performed By: #### C BC, GFR, ANEU, CMP, ADIFF #### [place] [address] BGon 02-01-2022 Barometric Pressure 710 mmHg Normal [facility] ([place]) Comment on above: Performed By: #### C BC, GFR, ANEU, CMP, ADIFF #### [address] [address] Base excess Calc (Bld) [Moles/Vol] -1.2000 mmol/L Normal [facility] ([place]) Comment on above: Performed By: #### C BC, GFR, ANEU, CMP, ADIFF #### [address] [address] CO2 [Moles/Vol] 24.5 mmol/L Normal 22.0-30.0 [facility] ([place]) Comment on above: Performed By: #### C BC, GFR, ANEU, CMP, ADIFF #### [address] [address] HCO3 (Bld) [Moles/Vol] 23.3 mmol/L Normal 21.0-29.0 [facility] ([place]) Comment on above: Performed By: #### C BC, GFR, ANEU, CMP, ADIFF #### [place] [phone] Oxygen (Bld) [Partial pressure] 73.0 mm[Hg] Low 74.0-108.0 [facility] ([place]) Comment on above: Performed By: #### C BC, GFR, ANEU, CMP, ADIFF #### [place] [id number] Oxygen saturation in Blood 93.7 % Normal 92.0-96.0 [facility] ([place]) Comment on above: Performed By: #### C BC, GFR, ANEU, CMP, ADIFF #### [place] [id number] pCO2 38.1 mmHg Normal 32.0-46.0 [facility] ([place]) Comment on above: Performed By: #### C BC, GFR, ANEU, CMP, ADIFF #### [address] [address] pH (Bld) 7.404 [pH] Normal 7.380-7.460 [facility] ([place]) Comment on above: Performed By: #### C BC, GFR, ANEU, CMP, ADIFF #### [place] [id number] Barometric Pressure 707 mmHg Normal [facility] ([place]) Comment on above: Performed By: #### C BC, GFR, ANEU, CMP, ADIFF #### [place] [id number] Base excess Calc (Bld) [Moles/Vol] -1.7000 mmol/L Normal [facility] ([place]) Comment on above: Performed By: #### C BC, GFR, ANEU, CMP, ADIFF #### [address] [address] CO2 [Moles/Vol] 23.7 mmol/L Normal 22.0-30.0 [facility] ([place]) Comment on above: Performed By: #### C BC, GFR, ANEU, CMP, ADIFF #### [place] [phone] HCO3 (Bld) [Moles/Vol] 22.6 mmol/L Normal 21.0-29.0 [facility] ([place]) Comment on above: Performed By: #### C BC, GFR, ANEU, CMP, ADIFF #### [place] [id number] Oxygen (Bld) [Partial pressure] 75.5 mm[Hg] Normal 74.0-108.0 [facility] ([place]) Comment on above: Performed By: #### C BC, GFR, ANEU, CMP, ADIFF #### [place] [address] Oxygen saturation in Blood 94.8 % Normal 92.0-96.0 [facility] ([place]) Comment on above: Performed By: #### C BC, GFR, ANEU, CMP, ADIFF #### [place] [id number] pCO2 37.0 mmHg Normal 32.0-46.0 [facility] ([place]) Comment on above: Performed By: #### C BC, GFR, ANEU, CMP, ADIFF #### [place] [id number] pH (Bld) 7.404 [pH] Normal 7.380-7.460 [facility] ([place]) Comment on above: Performed By: #### C BC, GFR, ANEU, CMP, ADIFF #### [place] [id number] CBCon 02-01-2022 Erythrocyte distribution width (RBC) [Ratio] 13.2 % Normal 11.5-15.5 [facility] ([place]) Comment on above: Performed By: #### C BC, GFR, ANEU, CMP, ADIFF #### [place] [id number] Hematocrit (Bld) [Volume fraction] 35.0 % Low 40.0-52.0 [facility] ([place]) Comment on above: Performed By: #### C BC, GFR, ANEU, CMP, ADIFF #### [place] [address] Hgb 12.1 G/dL Low 13.0-17.5 [facility] ([place]) Comment on above: Performed By: #### C BC, GFR, ANEU, CMP, ADIFF #### [place] [address] MCH (RBC) [Entitic mass] 30.7 pg Normal 27.0-33.0 [facility] ([place]) Comment on above: Performed By: #### C BC, GFR, ANEU, CMP, ADIFF #### [place] [address] MCHC 34.6 G/dL Normal 32.0-36.0 [facility] ([place]) Comment on above: Performed By: #### C BC, GFR, ANEU, CMP, ADIFF #### [place] [address] MCV (RBC) [Entitic vol] 88.8 fL Normal 81.0-100.0 [facility] ([place]) Comment on above: Performed By: #### C BC, GFR, ANEU, CMP, ADIFF #### [place] [address] Platelet 180 10 3/mcL Normal 150-450 [facility] ([place]) Comment on above: Performed By: #### C BC, GFR, ANEU, CMP, ADIFF #### [place] [address] Platelet mean volume (Bld) [Entitic vol] 7.8 fL Normal 6.4-10.5 [facility] ([place]) Comment on above: Performed By: #### C BC, GFR, ANEU, CMP, ADIFF #### [place] [address] RBC 3.95 10 6/mcL Low 4.50-6.00 [facility] ([place]) Comment on above: Performed By: #### C BC, GFR, ANEU, CMP, ADIFF #### [address] [address] WBC 10.00 10 3/mcL Normal 4.50-10.80 [facility] ([place]) Comment on above: Performed By: #### C BC, GFR, ANEU, CMP, ADIFF #### [address] [address] CMPon 02-01-2022 Albumin Level 3.7 G/dL Normal 3.2-4.8 [facility] ([place]) Comment on above: Performed By: #### C BC, GFR, ANEU, CMP, ADIFF #### [place] [phone] Albumin/Globulin [Mass ratio] 1.9 {ratio} High 0.9-1.6 [facility] ([place]) Comment on above: Performed By: #### C BC, GFR, ANEU, CMP, ADIFF #### [place] [address] ALP [Catalytic activity/Vol] 44 U/L Normal 38-126 [facility] ([place]) Comment on above: Performed By: #### C BC, GFR, ANEU, CMP, ADIFF #### [place] [phone] ALT [Catalytic activity/Vol] 32 U/L Normal 12-55 [facility] ([place]) Comment on above: Performed By: #### C BC, GFR, ANEU, CMP, ADIFF #### [place] [phone] AST [Catalytic activity/Vol] 29 U/L Normal 8-34 [facility] ([place]) Comment on above: Performed By: #### C BC, GFR, ANEU, CMP, ADIFF #### [place] [phone] Bili Total 1.00 mg/dL Normal 0.20-1.20 [facility] ([place]) Comment on above: Result Comment: Use of this assay is not recommended for patients undergoing treatment with eltrombopag due to the potential for falsely elevated results. Performed By: #### C BC, GFR, ANEU, CMP, ADIFF #### [address] [address] BUN/Creatinine Ratio 17.1 ratio Normal 10.0-22.0 [facility] ([place]) Comment on above: Performed By: #### C BC, GFR, ANEU, CMP, ADIFF #### [address] [address] Calcium [Mass/Vol] 8.3 mg/dL Low 8.7-10.4 [facility] ([place]) Comment on above: Performed By: #### C BC, GFR, ANEU, CMP, ADIFF #### [address] [address] Chloride [Moles/Vol] 110 mmol/L Normal 98-110 [facility] ([place]) Comment on above: Performed By: #### C BC, GFR, ANEU, CMP, ADIFF #### [place] [id number] CO2 [Moles/Vol] 24 mmol/L Normal 22-32 [facility] ([place]) Comment on above: Performed By: #### C BC, GFR, ANEU, CMP, ADIFF #### [place] [phone] Creatinine [Mass/Vol] 0.82 mg/dL Normal 0.60-1.40 [facility] ([place]) Comment on above: Performed By: #### C BC, GFR, ANEU, CMP, ADIFF #### [place] [id number] Electrolyte Balance 5.0 mEq/L Normal 4.0-15.0 [facility] ([place]) Comment on above: Performed By: #### C BC, GFR, ANEU, CMP, ADIFF #### [address] [address] Globulin 1.9 G/dL Normal 1.5-3.8 [facility] ([place]) Comment on above: Performed By: #### C BC, GFR, ANEU, CMP, ADIFF #### [place] [id number] Glucose [Mass/Vol] 101 mg/dL Normal 70-110 [facility] ([place]) Comment on above: Performed By: #### C BC, GFR, ANEU, CMP, ADIFF #### [address] [address] Potassium [Moles/Vol] 3.8 mmol/L Normal 3.5-5.0 [facility] ([place]) Comment on above: Performed By: #### C BC, GFR, ANEU, CMP, ADIFF #### [address] [address] Sodium [Moles/Vol] 139 mmol/L Normal 136-145 [facility] ([place]) Comment on above: Performed By: #### C BC, GFR, ANEU, CMP, ADIFF #### [address] [address] Total Protein 5.6 G/dL Low 5.7-8.2 [facility] ([place]) Comment on above: Result Comment: No te - New Reference Range in effect 20 Performed By: #### C BC, GFR, ANEU, CMP, ADIFF #### [address] [address] Urea nitrogen [Mass/Vol] 14.0 mg/dL Normal 8.0-22.0 [facility] ([place]) Comment on above: Performed By: #### C BC, GFR, ANEU, CMP, ADIFF #### [address] [address] Deni 02-01-2022 Potassium [Moles/Vol] 4.1 mmol/L Normal 3.5-5.0 [facility] ([place]) Comment on above: Performed By: #### C BC, GFR, ANEU, CMP, ADIFF #### [address] [address] Potassium [Moles/Vol] 4.0 mmol/L Normal 3.5-5.0 [facility] ([place]) Comment on above: Performed By: #### C BC, GFR, ANEU, CMP, ADIFF #### [address] [address] Potassium [Moles/Vol] 3.7 mmol/L Normal 3.5-5.0 [facility] ([place]) Comment on above: Performed By: #### C BC, GFR, ANEU, CMP, ADIFF #### [place] [address] LABORATORYOrdered By: SYSTEM SYSTEM on 02-01-2022 Albumin [...] 02/01/2022 7:15:57 AM Ordering Provider: DEVONTE Gibson [facility] ([place]) .Auto Diffon 01-31-2022 Basophil, Absolute 0.00 10 3/mcL Normal 0.00-0.27 [facility] ([place]) Comment on above: Performed By: #### C BC, GFR, ANEU, CMP, ADIFF #### [address] [address] Basophils/100 WBC (Bld) 0.3 % Normal 0.0-2.5 [facility] ([place]) Comment on above: Performed By: #### C BC, GFR, ANEU, CMP, ADIFF #### [address] [address] Eosinophil, Absolute 0.10 10 3/mcL Normal 0.00-0.65 [facility] ([place]) Comment on above: Performed By: #### C BC, GFR, ANEU, CMP, ADIFF #### [address] [address] Eosinophils/100 WBC (Bld) 0.8 % Normal 0.0-6.0 [facility] ([place]) Comment on above: Performed By: #### C BC, GFR, ANEU, CMP, ADIFF #### [address] [address] Lymphocyte, Absolute 1.20 10 3/mcL Normal 0.90-4.32 [facility] ([place]) Comment on above: Performed By: #### C BC, GFR, ANEU, CMP, ADIFF #### [address] [address] Lymphocytes/100 WBC (Bld) 9.4 % Low 20.0-40.0 [facility] ([place]) Comment on above: Performed By: #### C BC, GFR, ANEU, CMP, ADIFF #### [address] [address] Monocyte, Absolute 0.60 10 3/mcL Normal 0.09-1.40 [facility] ([place]) Comment on above: Performed By: #### C BC, GFR, ANEU, CMP, ADIFF #### [address] [address] Monocytes/100 WBC (Bld) 4.9 % Normal 2.0-13.0 [facility] ([place]) Comment on above: Performed By: #### C BC, GFR, ANEU, CMP, ADIFF #### [address] [address] Neutrophils/100 WBC (Bld) 84.6 % High 50.0-75.0 [facility] ([place]) Comment on above: Performed By: #### C BC, GFR, ANEU, CMP, ADIFF #### [address] [address] .GFRon 01-31-2022 GFR >60 Normal [facility] ([place]) Comment on above: Result Comment: GFR [...] C BC, GFR, ANEU, CMP, ADIFF #### [address] [address] GFR Non- >60 Normal [facility] ([place]) Comment on above: Result Comment: GFR Population [...] C BC, GFR, ANEU, CMP, ADIFF #### [address] [address] .NEUABSon 01-31-2022 Neutrophil, Absolute 11.10 10 3/mcL High 2.25-8.10 [facility] ([place]) Comment on above: Performed By: #### C BC, GFR, ANEU, CMP, ADIFF #### [address] [address] APTTon 01-31-2022 aPTT Coag (Bld) [Time] 29.9 s Normal 25.0-35.0 [facility] ([place]) Comment on above: Result Comment: For Heparin anticoagulation therapy, the recommended therapeutic range is: 54-77 seconds (APTT Correlation with Anti-Xa therapeutic range of 0.3-0.7 units/ml). PLEASE REFERENCE THE PHARMACY PROTOCOL FOR DOSING. Performed By: #### C BC, GFR, ANEU, CMP, ADIFF #### [address] [address] Heparin dose (APTT) Unknown Normal [facility] ([place]) Comment on above: Performed By: #### C BC, GFR, ANEU, CMP, ADIFF #### [address] [address] BGon 01-31-2022 Barometric Pressure 737 mmHg Normal [facility] ([place]) Comment on above: Performed By: #### C BC, GFR, ANEU, CMP, ADIFF #### [place] [id number] Base excess Calc (Bld) [Moles/Vol] -2.6000 mmol/L Normal [facility] ([place]) Comment on above: Performed By: #### C BC, GFR, ANEU, CMP, ADIFF #### [place] [id number] CO2 [Moles/Vol] 22.5 mmol/L Normal 22.0-30.0 [facility] ([place]) Comment on above: Performed By: #### C BC, GFR, ANEU, CMP, ADIFF #### [place] [address] HCO3 (Bld) [Moles/Vol] 21.4 mmol/L Normal 21.0-29.0 [facility] ([place]) Comment on above: Performed By: #### C BC, GFR, ANEU, CMP, ADIFF #### [place] [id number] Oxygen (Bld) [Partial pressure] 104.4 mm[Hg] Normal 74.0-108.0 [facility] ([place]) Comment on above: Performed By: #### C BC, GFR, ANEU, CMP, ADIFF #### [place] [id number] Oxygen saturation in Blood 97.8 % High 92.0-96.0 [facility] ([place]) Comment on above: Performed By: #### C BC, GFR, ANEU, CMP, ADIFF #### [place] [id number] pCO2 35.2 mmHg Normal 32.0-46.0 [facility] ([place]) Comment on above: Performed By: #### C BC, GFR, ANEU, CMP, ADIFF #### [address] [address] pH (Bld) 7.402 [pH] Normal 7.380-7.460 [facility] ([place]) Comment on above: Performed By: #### C BC, GFR, ANEU, CMP, ADIFF #### [address] [address] Barometric Pressure 707 mmHg Normal [facility] ([place]) Comment on above: Performed By: #### C BC, GFR, ANEU, CMP, ADIFF #### [address] [address] Base excess Calc (Bld) [Moles/Vol] 0.1 mmol/L Normal [facility] ([place]) Comment on above: Performed By: #### C BC, GFR, ANEU, CMP, ADIFF #### [address] [address] CO2 [Moles/Vol] 25.8 mmol/L Normal 22.0-30.0 [facility] ([place]) Comment on above: Performed By: #### C BC, GFR, ANEU, CMP, ADIFF #### [place] [id number] HCO3 (Bld) [Moles/Vol] 24.6 mmol/L Normal 21.0-29.0 [facility] ([place]) Comment on above: Performed By: #### C BC, GFR, ANEU, CMP, ADIFF #### [place] [id number] Oxygen (Bld) [Partial pressure] 111.4 mm[Hg] High 74.0-108.0 [facility] ([place]) Comment on above: Performed By: #### C BC, GFR, ANEU, CMP, ADIFF #### [address] [address] Oxygen saturation in Blood 98.1 % High 92.0-96.0 [facility] ([place]) Comment on above: Performed By: #### C BC, GFR, ANEU, CMP, ADIFF #### [address] [address] pCO2 39.6 mmHg Normal 32.0-46.0 [facility] ([place]) Comment on above: Performed By: #### C BC, GFR, ANEU, CMP, ADIFF #### [address] [address] pH (Bld) 7.411 [pH] Normal 7.380-7.460 [facility] ([place]) Comment on above: Performed By: #### C BC, GFR, ANEU, CMP, ADIFF #### [place] [id number] Barometric Pressure 707 mmHg Normal [facility] ([place]) Comment on above: Performed By: #### C BC, GFR, ANEU, CMP, ADIFF #### [address] [address] Base excess Calc (Bld) [Moles/Vol] 0.0 mmol/L Normal [facility] ([place]) Comment on above: Performed By: #### C BC, GFR, ANEU, CMP, ADIFF #### [place] [id number] CO2 [Moles/Vol] 26.3 mmol/L Normal 22.0-30.0 [facility] ([place]) Comment on above: Performed By: #### C BC, GFR, ANEU, CMP, ADIFF #### [address] [address] HCO3 (Bld) [Moles/Vol] 25.0 mmol/L Normal 21.0-29.0 [facility] ([place]) Comment on above: Performed By: #### C BC, GFR, ANEU, CMP, ADIFF #### [address] [address] Oxygen (Bld) [Partial pressure] 83.9 mm[Hg] Normal 74.0-108.0 [facility] ([place]) Comment on above: Performed By: #### C BC, GFR, ANEU, CMP, ADIFF #### [address] [address] Oxygen saturation in Blood 95.8 % Normal 92.0-96.0 [facility] ([place]) Comment on above: Performed By: #### C BC, GFR, ANEU, CMP, ADIFF #### [address] [address] pCO2 42.2 mmHg Normal 32.0-46.0 [facility] ([place]) Comment on above: Performed By: #### C BC, GFR, ANEU, CMP, ADIFF #### [address] [address] pH (Bld) 7.391 [pH] Normal 7.380-7.460 [facility] ([place]) Comment on above: Performed By: #### C BC, GFR, ANEU, CMP, ADIFF #### [address] [address] Barometric Pressure 707 mmHg Normal [facility] ([place]) Comment on above: Performed By: #### C BC, GFR, ANEU, CMP, ADIFF #### [address] [address] Base excess Calc (Bld) [Moles/Vol] -0.9000 mmol/L Normal [facility] ([place]) Comment on above: Performed By: #### C BC, GFR, ANEU, CMP, ADIFF #### [address] [address] CO2 [Moles/Vol] 26.4 mmol/L Normal 22.0-30.0 [facility] ([place]) Comment on above: Performed By: #### C BC, GFR, ANEU, CMP, ADIFF #### [address] [address] HCO3 (Bld) [Moles/Vol] 25.0 mmol/L Normal 21.0-29.0 [facility] ([place]) Comment on above: Performed By: #### C BC, GFR, ANEU, CMP, ADIFF #### [address] [address] Oxygen (Bld) [Partial pressure] 99.9 mm[Hg] Normal 74.0-108.0 [facility] ([place]) Comment on above: Performed By: #### C BC, GFR, ANEU, CMP, ADIFF #### [address] [address] Oxygen saturation in Blood 97.1 % High 92.0-96.0 [facility] ([place]) Comment on above: Performed By: #### C BC, GFR, ANEU, CMP, ADIFF #### [address] [address] pCO2 46.6 mmHg High 32.0-46.0 [facility] ([place]) Comment on above: Performed By: #### C BC, GFR, ANEU, CMP, ADIFF #### [address] [address] pH (Bld) 7.347 [pH] Low 7.380-7.460 [facility] ([place]) Comment on above: Performed By: #### C BC, GFR, ANEU, CMP, ADIFF #### [address] [address] Barometric Pressure 710 mmHg Normal [facility] ([place]) Comment on above: Performed By: #### C BC, GFR, ANEU, CMP, ADIFF #### [address] [address] Base excess Calc (Bld) [Moles/Vol] -1.4000 mmol/L Normal [facility] ([place]) Comment on above: Performed By: #### C BC, GFR, ANEU, CMP, ADIFF #### [address] [address] CO2 [Moles/Vol] 25.5 mmol/L Normal 22.0-30.0 [facility] ([place]) Comment on above: Performed By: #### C BC, GFR, ANEU, CMP, ADIFF #### [address] [address] HCO3 (Bld) [Moles/Vol] 24.1 mmol/L Normal 21.0-29.0 [facility] ([place]) Comment on above: Performed By: #### C BC, GFR, ANEU, CMP, ADIFF #### [address] [address] Oxygen (Bld) [Partial pressure] 164.2 mm[Hg] High 74.0-108.0 [facility] ([place]) Comment on above: Performed By: #### C BC, GFR, ANEU, CMP, ADIFF #### [address] [address] Oxygen saturation in Blood 98.7 % High 92.0-96.0 [facility] ([place]) Comment on above: Performed By: #### C BC, GFR, ANEU, CMP, ADIFF #### [address] [address] pCO2 43.8 mmHg Normal 32.0-46.0 [facility] ([place]) Comment on above: Performed By: #### C BC, GFR, ANEU, CMP, ADIFF #### [address] [address] pH (Bld) 7.359 [pH] Low 7.380-7.460 [facility] ([place]) Comment on above: Performed By: #### C BC, GFR, ANEU, CMP, ADIFF #### [address] [address] Barometric Pressure 708 mmHg Normal [facility] ([place]) Comment on above: Performed By: #### G FR, MG, BMP, CBC, ADIFF, ANEU #### [address] [address] Base excess Calc (Bld) [Moles/Vol] -1.7000 mmol/L Normal [facility] ([place]) Comment on above: Performed By: #### G FR, MG, BMP, CBC, ADIFF, ANEU #### [address] [address] CO2 [Moles/Vol] 25.8 mmol/L Normal 22.0-30.0 [facility] ([place]) Comment on above: Performed By: #### G FR, MG, BMP, CBC, ADIFF, ANEU #### [address] [address] HCO3 (Bld) [Moles/Vol] 24.4 mmol/L Normal 21.0-29.0 [facility] ([place]) Comment on above: Performed By: #### G FR, MG, BMP, CBC, ADIFF, ANEU #### [place] [id number] Oxygen (Bld) [Partial pressure] 155.0 mm[Hg] High 74.0-108.0 [facility] ([place]) Comment on above: Performed By: #### G FR, MG, BMP, CBC, ADIFF, ANEU #### [place] [id number] Oxygen saturation in Blood 98.9 % High 92.0-96.0 [facility] ([place]) Comment on above: Performed By: #### G FR, MG, BMP, CBC, ADIFF, ANEU #### [place] [id number] pCO2 46.4 mmHg High 32.0-46.0 [facility] ([place]) Comment on above: Performed By: #### G FR, MG, BMP, CBC, ADIFF, ANEU #### [place] [id number] pH (Bld) 7.338 [pH] Low 7.380-7.460 [facility] ([place]) Comment on above: Performed By: #### G FR, MG, BMP, CBC, ADIFF, ANEU #### [place] [id number] BGRPon 01-31-2022 Base Excess - POC -2.9 mmol/L Normal [facility] ([place]) Comment on above: Performed By: #### C BC, GFR, ANEU, CMP, ADIFF #### [place] [id number] CO2 [Moles/Vol] 23.8 mmol/L Normal 22.0-30.0 [facility] ([place]) Comment on above: Performed By: #### C BC, GFR, ANEU, CMP, ADIFF #### [place] [id number] HCO3 (Bld) [Moles/Vol] 22.5 mmol/L Normal 21.0-29.0 [facility] ([place]) Comment on above: Performed By: #### C BC, GFR, ANEU, CMP, ADIFF #### [address] [address] Oxygen saturation in Blood 97.5 % High 92.0-96.0 [facility] ([place]) Comment on above: Performed By: #### C BC, GFR, ANEU, CMP, ADIFF #### [address] [address] PCO2 - POC 41.2 mmHg Normal 32.0-46.0 [facility] ([place]) Comment on above: Performed By: #### C BC, GFR, ANEU, CMP, ADIFF #### [address] [address] pH (poct) - POC 7.355 Low 7.380-7.460 [facility] ([place]) Comment on above: Performed By: #### C BC, GFR, ANEU, CMP, ADIFF #### [address] [address] PO2 - POC 102.9 mmHg Normal 74.0-108.0 [facility] ([place]) Comment on above: Performed By: #### C BC, GFR, ANEU, CMP, ADIFF #### [address] [address] PO2 - POC 410.3 mmHg High 74.0-108.0 [facility] ([place]) Comment on above: Performed By: #### C BC, GFR, ANEU, CMP, ADIFF #### [address] [address] Base Excess - POC -0.4 mmol/L Normal [facility] ([place]) Comment on above: Performed By: #### C BC, GFR, ANEU, CMP, ADIFF #### [address] [address] CO2 [Moles/Vol] 25.3 mmol/L Normal 22.0-30.0 [facility] ([place]) Comment on above: Performed By: #### C BC, GFR, ANEU, CMP, ADIFF #### [address] [address] HCO3 (Bld) [Moles/Vol] 24.1 mmol/L Normal 21.0-29.0 [facility] ([place]) Comment on above: Performed By: #### C BC, GFR, ANEU, CMP, ADIFF #### [address] [address] Oxygen saturation in Blood 99.7 % High 92.0-96.0 [facility] ([place]) Comment on above: Performed By: #### C BC, GFR, ANEU, CMP, ADIFF #### [address] [address] PCO2 - POC 38.8 mmHg Normal 32.0-46.0 [facility] ([place]) Comment on above: Performed By: #### C BC, GFR, ANEU, CMP, ADIFF #### [address] [address] pH (poct) - POC 7.411 Normal 7.380-7.460 [facility] ([place]) Comment on above: Performed By: #### C BC, GFR, ANEU, CMP, ADIFF #### [place] [id number] Base Excess - POC -3.2 mmol/L Normal [facility] ([place]) Comment on above: Performed By: #### G FR, MG, BMP, CBC, ADIFF, ANEU #### [address] [address] CO2 [Moles/Vol] 24.7 mmol/L Normal 22.0-30.0 [facility] ([place]) Comment on above: Performed By: #### G FR, MG, BMP, CBC, ADIFF, ANEU #### [address] [address] HCO3 (Bld) [Moles/Vol] 23.3 mmol/L Normal 21.0-29.0 [facility] ([place]) Comment on above: Performed By: #### G FR, MG, BMP, CBC, ADIFF, ANEU #### [address] [address] Oxygen saturation in Blood 99.7 % High 92.0-96.0 [facility] ([place]) Comment on above: Performed By: #### G FR, MG, BMP, CBC, ADIFF, ANEU #### [place] [id number] PCO2 - POC 47.6 mmHg High 32.0-46.0 [facility] ([place]) Comment on above: Performed By: #### G FR, MG, BMP, CBC, ADIFF, ANEU #### [place] [address] pH (poct) - POC 7.307 Low 7.380-7.460 [facility] ([place]) Comment on above: Performed By: #### G FR, MG, BMP, CBC, ADIFF, ANEU #### [place] [address] PO2 - POC 448.4 mmHg High 74.0-108.0 [facility] ([place]) Comment on above: Performed By: #### G FR, MG, BMP, CBC, ADIFF, ANEU #### [place] [id number] Base Excess - POC -3.7 mmol/L Normal [facility] ([place]) Comment on above: Performed By: #### C BC, GFR, ANEU, CMP, ADIFF #### [place] [id number] CO2 [Moles/Vol] 24.5 mmol/L Normal 22.0-30.0 [facility] ([place]) Comment on above: Performed By: #### C BC, GFR, ANEU, CMP, ADIFF #### [place] [id number] HCO3 (Bld) [Moles/Vol] 23.0 mmol/L Normal 21.0-29.0 [facility] ([place]) Comment on above: Performed By: #### C BC, GFR, ANEU, CMP, ADIFF #### [place] [id number] Oxygen saturation in Blood 99.3 % High 92.0-96.0 [facility] ([place]) Comment on above: Performed By: #### C BC, GFR, ANEU, CMP, ADIFF #### [place] [id number] PCO2 - POC 47.8 mmHg High 32.0-46.0 [facility] ([place]) Comment on above: Performed By: #### C BC, GFR, ANEU, CMP, ADIFF #### [place] [id number] pH (poct) - POC 7.300 Low 7.380-7.460 [facility] ([place]) Comment on above: Performed By: #### C BC, GFR, ANEU, CMP, ADIFF #### [place] [id number] PO2 - POC 209.6 mmHg High 74.0-108.0 [facility] ([place]) Comment on above: Performed By: #### C BC, GFR, ANEU, CMP, ADIFF #### [place] [id number] Base Excess - POC -5.0 mmol/L Normal [facility] ([place]) Comment on above: Performed By: #### G FR, MG, BMP, CBC, ADIFF, ANEU #### [place] [id number] CO2 [Moles/Vol] 22.5 mmol/L Normal 22.0-30.0 [facility] ([place]) Comment on above: Performed By: #### G FR, MG, BMP, CBC, ADIFF, ANEU #### [place] [id number] HCO3 (Bld) [Moles/Vol] 21.2 mmol/L Normal 21.0-29.0 [facility] ([place]) Comment on above: Performed By: #### G FR, MG, BMP, CBC, ADIFF, ANEU #### [place] [id number] Oxygen saturation in Blood 99.4 % High 92.0-96.0 [facility] ([place]) Comment on above: Performed By: #### G FR, MG, BMP, CBC, ADIFF, ANEU #### [place] [id number] PCO2 - POC 43.1 mmHg Normal 32.0-46.0 [facility] ([place]) Comment on above: Performed By: #### G FR, MG, BMP, CBC, ADIFF, ANEU #### [address] [address] pH (poct) - POC 7.309 Low 7.380-7.460 [facility] ([place]) Comment on above: Performed By: #### G FR, MG, BMP, CBC, ADIFF, ANEU #### [address] [address] PO2 - POC 230.6 mmHg High 74.0-108.0 [facility] ([place]) Comment on above: Performed By: #### G FR, MG, BMP, CBC, ADIFF, ANEU #### [place] [id number] BMPon 01-31-2022 BUN/Creatinine Ratio 16.7 ratio Normal 10.0-22.0 [facility] ([place]) Comment on above: Performed By: #### C BC, GFR, ANEU, CMP, ADIFF #### [place] [id number] Calcium [Mass/Vol] 7.9 mg/dL Low 8.7-10.4 [facility] ([place]) Comment on above: Performed By: #### C BC, GFR, ANEU, CMP, ADIFF #### [place] [id number] Chloride [Moles/Vol] 108 mmol/L Normal 98-110 [facility] ([place]) Comment on above: Performed By: #### C BC, GFR, ANEU, CMP, ADIFF #### [address] [address] CO2 [Moles/Vol] 24 mmol/L Normal 22-32 [facility] ([place]) Comment on above: Performed By: #### C BC, GFR, ANEU, CMP, ADIFF #### [place] [id number] Creatinine [Mass/Vol] 1.02 mg/dL Normal 0.60-1.40 [facility] ([place]) Comment on above: Performed By: #### C BC, GFR, ANEU, CMP, ADIFF #### [address] [address] Electrolyte Balance 6.0 mEq/L Normal 4.0-15.0 [facility] ([place]) Comment on above: Performed By: #### C BC, GFR, ANEU, CMP, ADIFF #### [place] [id number] Glucose [Mass/Vol] 156 mg/dL High 70-110 [facility] ([place]) Comment on above: Performed By: #### C BC, GFR, ANEU, CMP, ADIFF #### [place] [address] Potassium [Moles/Vol] 4.6 mmol/L Normal 3.5-5.0 [facility] ([place]) Comment on above: Performed By: #### C BC, GFR, ANEU, CMP, ADIFF #### [place] [address] Sodium [Moles/Vol] 138 mmol/L Normal 136-145 [facility] ([place]) Comment on above: Performed By: #### C BC, GFR, ANEU, CMP, ADIFF #### [place] [address] Urea nitrogen [Mass/Vol] 17.0 mg/dL Normal 8.0-22.0 [facility] ([place]) Comment on above: Performed By: #### C BC, GFR, ANEU, CMP, ADIFF #### [place] [address] CAIONon 01-31-2022 Calcium Ionized 1.11 mmol/L Low 1.12-1.32 [facility] ([place]) Comment on above: Performed By: #### C BC, GFR, ANEU, CMP, ADIFF #### [address] [address] CARPon 01-31-2022 Ionized Calcium - POC 1.23 mmol/L Normal 1.12-1.32 [facility] ([place]) Comment on above: Performed By: #### C BC, GFR, ANEU, CMP, ADIFF #### [place] [address] Ionized Calcium - POC 1.02 mmol/L Low 1.12-1.32 [facility] ([place]) Comment on above: Performed By: #### C BC, GFR, ANEU, CMP, ADIFF #### [place] [address] Ionized Calcium - POC 1.03 mmol/L Low 1.12-1.32 [facility] ([place]) Comment on above: Performed By: #### G FR, MG, BMP, CBC, ADIFF, ANEU #### [place] [address] Ionized Calcium - POC 1.11 mmol/L Low 1.12-1.32 [facility] ([place]) Comment on above: Performed By: #### C BC, GFR, ANEU, CMP, ADIFF #### [place] [address] Ionized Calcium - POC 1.17 mmol/L Normal 1.12-1.32 [facility] ([place]) Comment on above: Performed By: #### G FR, MG, BMP, CBC, ADIFF, ANEU #### [place] [address] CBCon 01-31-2022 Erythrocyte distribution width (RBC) [Ratio] 13.4 % Normal 11.5-15.5 [facility] ([place]) Comment on above: Performed By: #### C BC, GFR, ANEU, CMP, ADIFF #### [place] [address] Hematocrit (Bld) [Volume fraction] 34.6 % Low 40.0-52.0 [facility] ([place]) Comment on above: Performed By: #### C BC, GFR, ANEU, CMP, ADIFF #### [place] [address] Hgb 11.8 G/dL Low 13.0-17.5 [facility] ([place]) Comment on above: Performed By: #### C BC, GFR, ANEU, CMP, ADIFF #### [place] [address] MCH (RBC) [Entitic mass] 30.4 pg Normal 27.0-33.0 [facility] ([place]) Comment on above: Performed By: #### C BC, GFR, ANEU, CMP, ADIFF #### [place] [address] MCHC 34.0 G/dL Normal 32.0-36.0 [facility] ([place]) Comment on above: Performed By: #### C BC, GFR, ANEU, CMP, ADIFF #### [place] [address] MCV (RBC) [Entitic vol] 89.4 fL Normal 81.0-100.0 [facility] ([place]) Comment on above: Performed By: #### C BC, GFR, ANEU, CMP, ADIFF #### [place] [address] Platelet 191 10 3/mcL Normal 150-450 [facility] ([place]) Comment on above: Performed By: #### C BC, GFR, ANEU, CMP, ADIFF #### [place] [address] Platelet mean volume (Bld) [Entitic vol] 7.6 fL Normal 6.4-10.5 [facility] ([place]) Comment on above: Performed By: #### C BC, GFR, ANEU, CMP, ADIFF #### [place] [address] RBC 3.87 10 6/mcL Low 4.50-6.00 [facility] ([place]) Comment on above: Performed By: #### C BC, GFR, ANEU, CMP, ADIFF #### [place] [address] WBC 13.10 10 3/mcL High 4.50-10.80 [facility] ([place]) Comment on above: Performed By: #### C BC, GFR, ANEU, CMP, ADIFF #### [place] [address] CLRPon 01-31-2022 Chloride [Moles/Vol] 102 mmol/L Normal 98-110 [facility] ([place]) Comment on above: Performed By: #### C BC, GFR, ANEU, CMP, ADIFF #### [address] [address] Chloride [Moles/Vol] 102 mmol/L Normal 98-110 [facility] ([place]) Comment on above: Performed By: #### C BC, GFR, ANEU, CMP, ADIFF #### [address] [address] Chloride [Moles/Vol] 101 mmol/L Normal 98-110 [facility] ([place]) Comment on above: Performed By: #### G FR, MG, BMP, CBC, ADIFF, ANEU #### [address] [address] Chloride [Moles/Vol] 103 mmol/L Normal 98-110 [facility] ([place]) Comment on above: Performed By: #### C BC, GFR, ANEU, CMP, ADIFF #### [address] [address] Chloride [Moles/Vol] 103 mmol/L Normal 98-110 [facility] ([place]) Comment on above: Performed By: #### G FR, MG, BMP, CBC, ADIFF, ANEU #### [address] [address] FIBon 01-31-2022 Fibrinogen 346 mg/dL Normal 250-560 [facility] ([place]) Comment on above: Performed By: #### C BC, GFR, ANEU, CMP, ADIFF #### [address] [address] GLURPon 01-31-2022 Glucose [Mass/Vol] 191 mg/dL High 70-110 [facility] ([place]) Comment on above: Performed By: #### C BC, GFR, ANEU, CMP, ADIFF #### [address] [address] Glucose [Mass/Vol] 199 mg/dL High 70-110 [facility] ([place]) Comment on above: Performed By: #### C BC, GFR, ANEU, CMP, ADIFF #### [address] [address] Glucose [Mass/Vol] 187 mg/dL High 70-110 [facility] ([place]) Comment on above: Performed By: #### G FR, MG, BMP, CBC, ADIFF, ANEU #### [address] [address] Glucose [Mass/Vol] 193 mg/dL High 70-110 [facility] ([place]) Comment on above: Performed By: #### C BC, GFR, ANEU, CMP, ADIFF #### [address] [address] Glucose [Mass/Vol] 148 mg/dL High 70-110 [facility] ([place]) Comment on above: Performed By: #### G FR, MG, BMP, CBC, ADIFF, ANEU #### [address] [address] HCTRPon 01-31-2022 Hematocrit (Bld) [Volume fraction] 37.0 % Low 42.0-52.0 [facility] ([place]) Comment on above: Performed By: #### C BC, GFR, ANEU, CMP, ADIFF #### [place] [id number] Hematocrit (Bld) [Volume fraction] 36.0 % Low 42.0-52.0 [facility] ([place]) Comment on above: Performed By: #### C BC, GFR, ANEU, CMP, ADIFF #### [address] [address] Hematocrit (Bld) [Volume fraction] 35.0 % Low 42.0-52.0 [facility] ([place]) Comment on above: Performed By: #### G FR, MG, BMP, CBC, ADIFF, ANEU #### [address] [address] Hematocrit (Bld) [Volume fraction] 42.0 % Normal 42.0-52.0 [facility] ([place]) Comment on above: Performed By: #### C BC, GFR, ANEU, CMP, ADIFF #### [address] [address] Hematocrit (Bld) [Volume fraction] 45.0 % Normal 42.0-52.0 [facility] ([place]) Comment on above: Performed By: #### G FR, MG, BMP, CBC, ADIFF, ANEU #### [place] [id number] HGBRPon 01-31-2022 Hemoglobin (POC) 12.5 G/dL Low 13.0-17.5 [facility] ([place]) Comment on above: Performed By: #### C BC, GFR, ANEU, CMP, ADIFF #### [place] [address] Hemoglobin (POC) 12.1 G/dL Low 13.0-17.5 [facility] ([place]) Comment on above: Performed By: #### C BC, GFR, ANEU, CMP, ADIFF #### [place] [address] Hemoglobin (POC) 12.0 G/dL Low 13.0-17.5 [facility] ([place]) Comment on above: Performed By: #### G FR, MG, BMP, CBC, ADIFF, ANEU #### [place] [address] Hemoglobin (POC) 14.4 G/dL Normal 13.0-17.5 [facility] ([place]) Comment on above: Performed By: #### C BC, GFR, ANEU, CMP, ADIFF #### [place] [address] Hemoglobin (POC) 15.4 G/dL Normal 13.0-17.5 [facility] ([place]) Comment on above: Performed By: #### G FR, MG, BMP, CBC, ADIFF, ANEU #### [place] [id number] Deni 01-31-2022 Potassium [Moles/Vol] 4.1 mmol/L Normal 3.5-5.0 [facility] ([place]) Comment on above: Performed By: #### C BC, GFR, ANEU, CMP, ADIFF #### [place] [address] Potassium [Moles/Vol] 3.9 mmol/L Normal 3.5-5.0 [facility] ([place]) Comment on above: Performed By: #### C BC, GFR, ANEU, CMP, ADIFF #### [address] [address] KRPon 01-31-2022 Potassium [Moles/Vol] 4.9 mmol/L Normal 3.5-5.0 [facility] ([place]) Comment on above: Performed By: #### C BC, GFR, ANEU, CMP, ADIFF #### [place] [id number] Potassium [Moles/Vol] 5.3 mmol/L High 3.5-5.0 [facility] ([place]) Comment on above: Performed By: #### C BC, GFR, ANEU, CMP, ADIFF #### [place] [id number] Potassium [Moles/Vol] 5.2 mmol/L High 3.5-5.0 [facility] ([place]) Comment on above: Performed By: #### G FR, MG, BMP, CBC, ADIFF, ANEU #### [place] [address] Potassium [Moles/Vol] 4.5 mmol/L Normal 3.5-5.0 [facility] ([place]) Comment on above: Performed By: #### C BC, GFR, ANEU, CMP, ADIFF #### [place] [id number] Potassium [Moles/Vol] 4.0 mmol/L Normal 3.5-5.0 [facility] ([place]) Comment on above: Performed By: #### G FR, MG, BMP, CBC, ADIFF, ANEU #### [address] [address] LABORATORYOrdered By: Layne Holm on 01-31-2022 Barometric [...] 14.9 seconds Auto Coag SS LABORATORYOrdered By: Elis Ivey on 01-31-2022 Calcium.ionized (Bld) [Mass/Vol] 1.11 [...] 01-31-2022 Magnesium [Mass/Vol] 2.8 mg/dL High 1.6-2.4 [facility] ([place]) Comment on above: Performed By: #### C BC, GFR, ANEU, CMP, ADIFF #### [address] [address] NARPon 01-31-2022 Sodium [Moles/Vol] 131 mmol/L Low 136-145 [facility] ([place]) Comment on above: Performed By: #### C BC, GFR, ANEU, CMP, ADIFF #### [address] [address] Sodium [Moles/Vol] 131 mmol/L Low 136-145 [facility] ([place]) Comment on above: Performed By: #### C BC, GFR, ANEU, CMP, ADIFF #### [address] [address] Sodium [Moles/Vol] 130 mmol/L Low 136-145 [facility] ([place]) Comment on above: Performed By: #### G FR, MG, BMP, CBC, ADIFF, ANEU #### [place] [address] Sodium [Moles/Vol] 135 mmol/L Low 136-145 [facility] ([place]) Comment on above: Performed By: #### C BC, GFR, ANEU, CMP, ADIFF #### [place] [address] Sodium [Moles/Vol] 140 mmol/L Normal 136-145 [facility] ([place]) Comment on above: Performed By: #### G FR, MG, BMP, CBC, ADIFF, ANEU #### [place] [id number] PHOSon 01-31-2022 Phosphate [Mass/Vol] 3.7 mg/dL Normal 2.4-5.1 [facility] ([place]) Comment on above: Result Comment: No te - New Reference Range in effect 20 Performed By: #### C BC, GFR, ANEU, CMP, ADIFF #### [place] [id number] PROon 01-31-2022 INR Coag (PPP) [Relative time] 1.2 {INR} Normal [facility] ([place]) Comment on above: Result Comment: The [employer] (CHEST, 1991, [id number]) recommended therapeutic range for oral anticoagulant therapy is: LOW RISK: Prophylaxis of venous thrombosis INR: 2.0-3.0 Treatment of pulmonary embolism 2.0-3.0 Prevention of systemic embolism 2.0-3.0 HIGH RISK: Mechanical prosthetic valves 2.5-3.5 Performed By: #### C BC, GFR, ANEU, CMP, ADIFF #### [place] [id number] PT Coag (PPP) [Time] 14.7 s Normal 9.0-14.9 [facility] ([place]) Comment on above: Result Comment: Effe ctive 04/04/08, Protime results may be affected by some antibiotics (i.e. Ciprofloxacin, Azithromycin, Bactrim) which may potentiate the action of oral anticoagulants, with further increases in Protime/INR. Performed By: #### C BC, GFR, ANEU, CMP, ADIFF #### [place] [id number] [place] [id number] Platelet (Product)on Platelet Product Ready Platelet Ready for Pickup [facility] ([place]) Comment on above: Order Comment: ON HO LD FOR CVOR Performed By: #### C BC, GFR, ANEU, CMP, ADIFF #### [facility] [address] [place] [id number] XR CHEST 1 VIEWon 01-31-2022 XR CHEST [...] 01/31/2022 4:49:55 PM Ordering Provider: DEVONTE HAWK [facility] ([place]) XR ENTERIC TUBE PLACEMENTon 01-31-2022 XR ENTERIC [...] 01/31/2022 4:49:55 PM Ordering Provider: DEVONTE Gibson [facility] ([place]) .Auto Diffon 01-30-2022 Basophil, Absolute 0.00 10 3/mcL Normal 0.00-0.27 [facility] ([place]) Comment on above: Performed By: #### G FR, MG, BMP, CBC, ADIFF, ANEU #### [address] [address] Basophils/100 WBC (Bld) 0.6 % Normal 0.0-2.5 [facility] ([place]) Comment on above: Performed By: #### G FR, MG, BMP, CBC, ADIFF, ANEU #### [address] [address] Eosinophil, Absolute 0.20 10 3/mcL Normal 0.00-0.65 [facility] ([place]) Comment on above: Performed By: #### G FR, MG, BMP, CBC, ADIFF, ANEU #### [address] [address] Eosinophils/100 WBC (Bld) 2.4 % Normal 0.0-6.0 [facility] ([place]) Comment on above: Performed By: #### G FR, MG, BMP, CBC, ADIFF, ANEU #### [address] [address] Lymphocyte, Absolute 2.50 10 3/mcL Normal 0.90-4.32 [facility] ([place]) Comment on above: Performed By: #### G FR, MG, BMP, CBC, ADIFF, ANEU #### [address] [address] Lymphocytes/100 WBC (Bld) 29.7 % Normal 20.0-40.0 [facility] ([place]) Comment on above: Performed By: #### G FR, MG, BMP, CBC, ADIFF, ANEU #### [address] [address] Monocyte, Absolute 0.50 10 3/mcL Normal 0.09-1.40 [facility] ([place]) Comment on above: Performed By: #### G FR, MG, BMP, CBC, ADIFF, ANEU #### [address] [address] Monocytes/100 WBC (Bld) 6.4 % Normal 2.0-13.0 [facility] ([place]) Comment on above: Performed By: #### G FR, MG, BMP, CBC, ADIFF, ANEU #### [address] [address] Neutrophils/100 WBC (Bld) 60.9 % Normal 50.0-75.0 [facility] ([place]) Comment on above: Performed By: #### G FR, MG, BMP, CBC, ADIFF, ANEU #### [address] [address] .GFRon 01-30-2022 GFR >60 Normal [facility] ([place]) Comment on above: Result Comment: GFR Population [...] C BC, GFR, ANEU, CMP, ADIFF #### [address] [address] GFR Non- >60 Normal [facility] ([place]) Comment on above: Result Comment: GFR Population [...] C BC, GFR, ANEU, CMP, ADIFF #### [address] [address] .NEUABSon 01-30-2022 Neutrophil, Absolute 5.10 10 3/mcL Normal 2.25-8.10 [facility] ([place]) Comment on above: Performed By: #### G FR, MG, BMP, CBC, ADIFF, ANEU #### [address] [address] ABO/Rh (Gel)on 01-30-2022 ABO/Rh Interp Negative Invalid Interpretation Code [facility] ([place]) Comment on above: Performed By: #### C BC, GFR, ANEU, CMP, ADIFF #### [address] [address] ABS (Gel)on 01-30-2022 ABSC Interp (Gel) Negative Normal [facility] ([place]) Comment on above: Performed By: #### C BC, GFR, ANEU, CMP, ADIFF #### [address] [address] BMPon 01-30-2022 Chloride [Moles/Vol] 103 mmol/L Normal 98-110 [facility] ([place]) Comment on above: Performed By: #### C BC, GFR, ANEU, CMP, ADIFF #### [address] [address] Electrolyte Balance 5.0 mEq/L Normal 4.0-15.0 [facility] ([place]) Comment on above: Performed By: #### C BC, GFR, ANEU, CMP, ADIFF #### [place] [id number] Potassium [Moles/Vol] 4.0 mmol/L Normal 3.5-5.0 [facility] ([place]) Comment on above: Result Comment: Spec imen slightly hemolyzed. Performed By: #### C BC, GFR, ANEU, CMP, ADIFF #### [place] [address] Sodium [Moles/Vol] 137 mmol/L Normal 136-145 [facility] ([place]) Comment on above: Performed By: #### C BC, GFR, ANEU, CMP, ADIFF #### [place] [address] BUN/Creatinine Ratio 15.5 ratio Normal 10.0-22.0 [facility] ([place]) Comment on above: Performed By: #### C BC, GFR, ANEU, CMP, ADIFF #### [place] [id number] Calcium [Mass/Vol] 9.6 mg/dL Normal 8.7-10.4 [facility] ([place]) Comment on above: Performed By: #### C BC, GFR, ANEU, CMP, ADIFF #### [place] [id number] CO2 [Moles/Vol] 29 mmol/L Normal 22-32 [facility] ([place]) Comment on above: Performed By: #### C BC, GFR, ANEU, CMP, ADIFF #### [address] [address] Creatinine [Mass/Vol] 1.10 mg/dL Normal 0.60-1.40 [facility] ([place]) Comment on above: Performed By: #### C BC, GFR, ANEU, CMP, ADIFF #### [place] [address] Glucose [Mass/Vol] 134 mg/dL High 70-110 [facility] ([place]) Comment on above: Performed By: #### C BC, GFR, ANEU, CMP, ADIFF #### [place] [address] Urea nitrogen [Mass/Vol] 17.0 mg/dL Normal 8.0-22.0 [facility] ([place]) Comment on above: Performed By: #### C BC, GFR, ANEU, CMP, ADIFF #### [place] [address] CBCon 01-30-2022 Erythrocyte distribution width (RBC) [Ratio] 13.6 % Normal 11.5-15.5 [facility] ([place]) Comment on above: Performed By: #### G FR, MG, BMP, CBC, ADIFF, ANEU #### [place] [address] Hematocrit (Bld) [Volume fraction] 45.1 % Normal 40.0-52.0 [facility] ([place]) Comment on above: Performed By: #### G FR, MG, BMP, CBC, ADIFF, ANEU #### [place] [address] Hgb 15.6 G/dL Normal 13.0-17.5 [facility] ([place]) Comment on above: Performed By: #### G FR, MG, BMP, CBC, ADIFF, ANEU #### [place] [address] MCH (RBC) [Entitic mass] 30.9 pg Normal 27.0-33.0 [facility] ([place]) Comment on above: Performed By: #### G FR, MG, BMP, CBC, ADIFF, ANEU #### [place] [id number] MCHC 34.7 G/dL Normal 32.0-36.0 [facility] ([place]) Comment on above: Performed By: #### G FR, MG, BMP, CBC, ADIFF, ANEU #### [place] [address] MCV (RBC) [Entitic vol] 89.2 fL Normal 81.0-100.0 [facility] ([place]) Comment on above: Performed By: #### G FR, MG, BMP, CBC, ADIFF, ANEU #### [place] [address] Platelet 256 10 3/mcL Normal 150-450 [facility] ([place]) Comment on above: Performed By: #### G FR, MG, BMP, CBC, ADIFF, ANEU #### [place] [address] Platelet mean volume (Bld) [Entitic vol] 7.7 fL Normal 6.4-10.5 [facility] ([place]) Comment on above: Performed By: #### G FR, MG, BMP, CBC, ADIFF, ANEU #### [place] [address] RBC 5.06 10 6/mcL Normal 4.50-6.00 [facility] ([place]) Comment on above: Performed By: #### G FR, MG, BMP, CBC, ADIFF, ANEU #### [place] [address] WBC 8.40 10 3/mcL Normal 4.50-10.80 [facility] ([place]) Comment on above: Performed By: #### G FR, MG, BMP, CBC, ADIFF, ANEU #### [place] [address] LIYAH IgGon 01-30-2022 LIYAH IgG Negative Normal [facility] ([place]) Comment on above: Performed By: #### C BC, GFR, ANEU, CMP, ADIFF #### [place] [address] LABORATORYOrdered By: Erika Cool on 01-30-2022 ABO [...] 01-30-2022 Magnesium [Mass/Vol] 2.1 mg/dL Normal 1.6-2.4 [facility] ([place]) Comment on above: Performed By: #### G FR, MG, BMP, CBC, ADIFF, ANEU #### [address] [address] RBC (Product)on 01-30-2022 RBC Product Ready RBC Ready for Pickup Normal [facility] ([place]) Comment on above: Performed By: #### C BC, GFR, ANEU, CMP, ADIFF #### [address] [address] .Auto Diffon 01-29-2022 Basophil, Absolute 0.00 10 3/mcL Normal 0.00-0.27 [facility] ([place]) Comment on above: Performed By: #### G FR, MG, BMP, CBC, ADIFF, ANEU #### [address] [address] Basophils/100 WBC (Bld) 0.5 % Normal 0.0-2.5 [facility] ([place]) Comment on above: Performed By: #### G FR, MG, BMP, CBC, ADIFF, ANEU #### [address] [address] Eosinophil, Absolute 0.20 10 3/mcL Normal 0.00-0.65 [facility] ([place]) Comment on above: Performed By: #### G FR, MG, BMP, CBC, ADIFF, ANEU #### [address] [address] Eosinophils/100 WBC (Bld) 2.6 % Normal 0.0-6.0 [facility] ([place]) Comment on above: Performed By: #### G FR, MG, BMP, CBC, ADIFF, ANEU #### [address] [address] Lymphocyte, Absolute 2.30 10 3/mcL Normal 0.90-4.32 [facility] ([place]) Comment on above: Performed By: #### G FR, MG, BMP, CBC, ADIFF, ANEU #### [address] [address] Lymphocytes/100 WBC (Bld) 27.3 % Normal 20.0-40.0 [facility] ([place]) Comment on above: Performed By: #### G FR, MG, BMP, CBC, ADIFF, ANEU #### [address] [address] Monocyte, Absolute 0.50 10 3/mcL Normal 0.09-1.40 [facility] ([place]) Comment on above: Performed By: #### G FR, MG, BMP, CBC, ADIFF, ANEU #### [address] [address] Monocytes/100 WBC (Bld) 5.6 % Normal 2.0-13.0 [facility] ([place]) Comment on above: Performed By: #### G FR, MG, BMP, CBC, ADIFF, ANEU #### [address] [address] Neutrophils/100 WBC (Bld) 64.0 % Normal 50.0-75.0 [facility] ([place]) Comment on above: Performed By: #### G FR, MG, BMP, CBC, ADIFF, ANEU #### [address] [address] .GFRon 01-29-2022 GFR Non- >60 Normal [facility] ([place]) Comment on above: Result Comment: GFR Population [...] FR, MG, BMP, CBC, ADIFF, ANEU #### [address] [address] GFR >60 Normal [facility] ([place]) Comment on above: Result Comment: GFR Population [...] FR, MG, BMP, CBC, ADIFF, ANEU #### [place] [id number] .NEUABSon 01-29-2022 Neutrophil, Absolute 5.40 10 3/mcL Normal 2.25-8.10 [facility] ([place]) Comment on above: Performed By: #### G FR, MG, BMP, CBC, ADIFF, ANEU #### [address] [address] BMPon 01-29-2022 BUN/Creatinine Ratio 22.5 ratio High 10.0-22.0 [facility] ([place]) Comment on above: Performed By: #### G FR, MG, BMP, CBC, ADIFF, ANEU #### [address] [address] Calcium [Mass/Vol] 9.4 mg/dL Normal 8.7-10.4 [facility] ([place]) Comment on above: Result Comment: No te - New Reference Range in effect 20 Performed By: #### G FR, MG, BMP, CBC, ADIFF, ANEU #### [place] [phone] Chloride [Moles/Vol] 105 mmol/L Normal 98-110 [facility] ([place]) Comment on above: Performed By: #### G FR, MG, BMP, CBC, ADIFF, ANEU #### [address] [address] CO2 [Moles/Vol] 25 mmol/L Normal 22-32 [facility] ([place]) Comment on above: Performed By: #### G FR, MG, BMP, CBC, ADIFF, ANEU #### [place] [phone] Creatinine [Mass/Vol] 0.89 mg/dL Normal 0.60-1.40 [facility] ([place]) Comment on above: Performed By: #### G FR, MG, BMP, CBC, ADIFF, ANEU #### [place] [address] Electrolyte Balance 8.0 mEq/L Normal 4.0-15.0 [facility] ([place]) Comment on above: Performed By: #### G FR, MG, BMP, CBC, ADIFF, ANEU #### [place] [phone] Glucose [Mass/Vol] 158 mg/dL High 70-110 [facility] ([place]) Comment on above: Performed By: #### G FR, MG, BMP, CBC, ADIFF, ANEU #### [place] [phone] Potassium [Moles/Vol] 3.9 mmol/L Normal 3.5-5.0 [facility] ([place]) Comment on above: Performed By: #### G FR, MG, BMP, CBC, ADIFF, ANEU #### [place] [address] Sodium [Moles/Vol] 138 mmol/L Normal 136-145 [facility] ([place]) Comment on above: Performed By: #### G FR, MG, BMP, CBC, ADIFF, ANEU #### [place] [address] Urea nitrogen [Mass/Vol] 20.0 mg/dL Normal 8.0-22.0 [facility] ([place]) Comment on above: Performed By: #### G FR, MG, BMP, CBC, ADIFF, ANEU #### [place] [address] CBCon 01-29-2022 Erythrocyte distribution width (RBC) [Ratio] 13.5 % Normal 11.5-15.5 [facility] ([place]) Comment on above: Performed By: #### G FR, MG, BMP, CBC, ADIFF, ANEU #### [place] [address] Hematocrit (Bld) [Volume fraction] 45.7 % Normal 40.0-52.0 [facility] ([place]) Comment on above: Performed By: #### G FR, MG, BMP, CBC, ADIFF, ANEU #### [place] [address] Hgb 15.7 G/dL Normal 13.0-17.5 [facility] ([place]) Comment on above: Performed By: #### G FR, MG, BMP, CBC, ADIFF, ANEU #### [place] [address] MCH (RBC) [Entitic mass] 30.6 pg Normal 27.0-33.0 [facility] ([place]) Comment on above: Performed By: #### G FR, MG, BMP, CBC, ADIFF, ANEU #### [place] [address] MCHC 34.4 G/dL Normal 32.0-36.0 [facility] ([place]) Comment on above: Performed By: #### G FR, MG, BMP, CBC, ADIFF, ANEU #### [place] [phone] MCV (RBC) [Entitic vol] 89.0 fL Normal 81.0-100.0 [facility] ([place]) Comment on above: Performed By: #### G FR, MG, BMP, CBC, ADIFF, ANEU #### [place] [address] Platelet 264 10 3/mcL Normal 150-450 [facility] ([place]) Comment on above: Performed By: #### G FR, MG, BMP, CBC, ADIFF, ANEU #### [place] [address] Platelet mean volume (Bld) [Entitic vol] 7.8 fL Normal 6.4-10.5 [facility] ([place]) Comment on above: Performed By: #### G FR, MG, BMP, CBC, ADIFF, ANEU #### [place] [address] RBC 5.13 10 6/mcL Normal 4.50-6.00 [facility] ([place]) Comment on above: Performed By: #### G FR, MG, BMP, CBC, ADIFF, ANEU #### [place] [address] WBC 8.50 10 3/mcL Normal 4.50-10.80 [facility] ([place]) Comment on above: Performed By: #### G FR, MG, BMP, CBC, ADIFF, ANEU #### [place] [address] LABORATORYOrdered By: Yamile phipps on 01-29-2022 Cholesterol [...] 01-29-2022 Cholesterol [Mass/Vol] 214 mg/dL High 50-199 [facility] ([place]) Comment on above: Result Comment: Chol esterol Reference Interval: Less than 200 Desirable 200-239 Borderline high risk 240 and above High risk Performed By: #### G FR, MG, BMP, CBC, ADIFF, ANEU #### [place] [address] Cholesterol in HDL [Mass/Vol] 32 mg/dL Low 40-59 [facility] ([place]) Comment on above: Performed By: #### G FR, MG, BMP, CBC, ADIFF, ANEU #### [place] [address] Cholesterol in LDL [Mass/Vol] 108 mg/dL Normal 0-129 [facility] ([place]) Comment on above: Performed By: #### G FR, MG, BMP, CBC, ADIFF, ANEU #### [place] [address] Triglyceride [Mass/Vol] 372 mg/dL High 3-149 [facility] ([place]) Comment on above: Performed By: #### G FR, MG, BMP, CBC, ADIFF, ANEU #### [place] [address] MGon 01-29-2022 Magnesium [Mass/Vol] 2.1 mg/dL Normal 1.6-2.4 [facility] ([place]) Comment on above: Performed By: #### G FR, MG, BMP, CBC, ADIFF, ANEU #### [place] [address] .Auto Diffon 01-28-2022 Basophil, Absolute 0.00 10 3/mcL Normal 0.00-0.27 [facility] ([place]) Comment on above: Performed By: #### C BC, GFR, ANEU, CMP, ADIFF #### [place] [address] Basophils/100 WBC (Bld) 0.5 % Normal 0.0-2.5 [facility] ([place]) Comment on above: Performed By: #### C BC, GFR, ANEU, CMP, ADIFF #### [place] [address] Eosinophil, Absolute 0.20 10 3/mcL Normal 0.00-0.65 [facility] ([place]) Comment on above: Performed By: #### C BC, GFR, ANEU, CMP, ADIFF #### [address] [address] Eosinophils/100 WBC (Bld) 3.0 % Normal 0.0-6.0 [facility] ([place]) Comment on above: Performed By: #### C BC, GFR, ANEU, CMP, ADIFF #### [address] [address] Lymphocyte, Absolute 2.50 10 3/mcL Normal 0.90-4.32 [facility] ([place]) Comment on above: Performed By: #### C BC, GFR, ANEU, CMP, ADIFF #### [address] [address] Lymphocytes/100 WBC (Bld) 30.3 % Normal 20.0-40.0 [facility] ([place]) Comment on above: Performed By: #### C BC, GFR, ANEU, CMP, ADIFF #### [address] [address] Monocyte, Absolute 0.40 10 3/mcL Normal 0.09-1.40 [facility] ([place]) Comment on above: Performed By: #### C BC, GFR, ANEU, CMP, ADIFF #### [address] [address] Monocytes/100 WBC (Bld) 4.8 % Normal 2.0-13.0 [facility] ([place]) Comment on above: Performed By: #### C BC, GFR, ANEU, CMP, ADIFF #### [address] [address] Neutrophils/100 WBC (Bld) 61.4 % Normal 50.0-75.0 [facility] ([place]) Comment on above: Performed By: #### C BC, GFR, ANEU, CMP, ADIFF #### [address] [address] .GFRon 01-28-2022 GFR >60 Normal [facility] ([place]) Comment on above: Result Comment: GFR [...] FR, MG, BMP, CBC, ADIFF, ANEU #### [address] [address] GFR Non- >60 Normal [facility] ([place]) Comment on above: Result Comment: GFR Population [...] FR, MG, BMP, CBC, ADIFF, ANEU #### [address] [address] .NEUABSon 01-28-2022 Neutrophil, Absolute 5.10 10 3/mcL Normal 2.25-8.10 [facility] ([place]) Comment on above: Performed By: #### C BC, GFR, ANEU, CMP, ADIFF #### [address] [address] BMPon 01-28-2022 BUN/Creatinine Ratio 19.0 ratio Normal 10.0-22.0 [facility] ([place]) Comment on above: Performed By: #### C BC, GFR, ANEU, CMP, ADIFF #### [address] [address] Calcium [Mass/Vol] 10.0 mg/dL Normal 8.7-10.4 [facility] ([place]) Comment on above: Result Comment: No te - New Reference Range in effect 20 Performed By: #### C BC, GFR, ANEU, CMP, ADIFF #### [address] [address] Chloride [Moles/Vol] 104 mmol/L Normal 98-110 [facility] ([place]) Comment on above: Performed By: #### C BC, GFR, ANEU, CMP, ADIFF #### [address] [address] CO2 [Moles/Vol] 26 mmol/L Normal 22-32 [facility] ([place]) Comment on above: Performed By: #### C BC, GFR, ANEU, CMP, ADIFF #### [address] [address] Creatinine [Mass/Vol] 0.84 mg/dL Normal 0.60-1.40 [facility] ([place]) Comment on above: Performed By: #### C BC, GFR, ANEU, CMP, ADIFF #### [address] [address] Electrolyte Balance 3.0 mEq/L Low 4.0-15.0 [facility] ([place]) Comment on above: Performed By: #### C BC, GFR, ANEU, CMP, ADIFF #### [address] [address] Glucose [Mass/Vol] 161 mg/dL High 70-110 [facility] ([place]) Comment on above: Performed By: #### C BC, GFR, ANEU, CMP, ADIFF #### [address] [address] Potassium [Moles/Vol] 3.9 mmol/L Normal 3.5-5.0 [facility] ([place]) Comment on above: Result Comment: Spec imen slightly hemolyzed. Performed By: #### C BC, GFR, ANEU, CMP, ADIFF #### [place] [address] Sodium [Moles/Vol] 133 mmol/L Low 136-145 [facility] ([place]) Comment on above: Performed By: #### C BC, GFR, ANEU, CMP, ADIFF #### [place] [address] Urea nitrogen [Mass/Vol] 16.0 mg/dL Normal 8.0-22.0 [facility] ([place]) Comment on above: Performed By: #### C BC, GFR, ANEU, CMP, ADIFF #### [place] [id number] CBCon 01-28-2022 Erythrocyte distribution width (RBC) [Ratio] 13.5 % Normal 11.5-15.5 [facility] ([place]) Comment on above: Performed By: #### C BC, GFR, ANEU, CMP, ADIFF #### [place] [address] Hematocrit (Bld) [Volume fraction] 44.5 % Normal 40.0-52.0 [facility] ([place]) Comment on above: Performed By: #### C BC, GFR, ANEU, CMP, ADIFF #### [place] [address] Hgb 15.6 G/dL Normal 13.0-17.5 [facility] ([place]) Comment on above: Performed By: #### C BC, GFR, ANEU, CMP, ADIFF #### [place] [address] MCH (RBC) [Entitic mass] 31.2 pg Normal 27.0-33.0 [facility] ([place]) Comment on above: Performed By: #### C BC, GFR, ANEU, CMP, ADIFF #### [place] [address] MCHC 34.9 G/dL Normal 32.0-36.0 [facility] ([place]) Comment on above: Performed By: #### C BC, GFR, ANEU, CMP, ADIFF #### [address] [address] MCV (RBC) [Entitic vol] 89.2 fL Normal 81.0-100.0 [facility] ([place]) Comment on above: Performed By: #### C BC, GFR, ANEU, CMP, ADIFF #### [place] [id number] Platelet 252 10 3/mcL Normal 150-450 [facility] ([place]) Comment on above: Performed By: #### C BC, GFR, ANEU, CMP, ADIFF #### [place] [phone] Platelet mean volume (Bld) [Entitic vol] 8.2 fL Normal 6.4-10.5 [facility] ([place]) Comment on above: Performed By: #### C BC, GFR, ANEU, CMP, ADIFF #### [place] [id number] RBC 4.99 10 6/mcL Normal 4.50-6.00 [facility] ([place]) Comment on above: Performed By: #### C BC, GFR, ANEU, CMP, ADIFF #### [place] [id number] WBC 8.30 10 3/mcL Normal 4.50-10.80 [facility] ([place]) Comment on above: Performed By: #### C BC, GFR, ANEU, CMP, ADIFF #### [place] [id number] MGon 01-28-2022 Magnesium [Mass/Vol] 1.8 mg/dL Normal 1.6-2.4 [facility] ([place]) Comment on above: Performed By: #### C BC, GFR, ANEU, CMP, ADIFF #### [place] [id number] XR CHEST 2 VIEWSon XR CHEST 2 [...] 01/28/2022 7:36:25 AM Ordering Provider: JENNY Gibson [facility] ([place]) .Auto Diffon 01-27-2022 Basophil, Absolute 0.10 10 3/mcL Normal 0.00-0.27 [facility] ([place]) Comment on above: Performed By: #### G FR, MG, BMP, CBC, ADIFF, ANEU #### [address] [address] Basophils/100 WBC (Bld) 0.7 % Normal 0.0-2.5 [facility] ([place]) Comment on above: Performed By: #### G FR, MG, BMP, CBC, ADIFF, ANEU #### [address] [address] Eosinophil, Absolute 0.20 10 3/mcL Normal 0.00-0.65 [facility] ([place]) Comment on above: Performed By: #### G FR, MG, BMP, CBC, ADIFF, ANEU #### [address] [address] Eosinophils/100 WBC (Bld) 2.4 % Normal 0.0-6.0 [facility] ([place]) Comment on above: Performed By: #### G FR, MG, BMP, CBC, ADIFF, ANEU #### [address] [address] Lymphocyte, Absolute 2.30 10 3/mcL Normal 0.90-4.32 [facility] ([place]) Comment on above: Performed By: #### G FR, MG, BMP, CBC, ADIFF, ANEU #### [address] [address] Lymphocytes/100 WBC (Bld) 28.1 % Normal 20.0-40.0 [facility] ([place]) Comment on above: Performed By: #### G FR, MG, BMP, CBC, ADIFF, ANEU #### [address] [address] Monocyte, Absolute 0.50 10 3/mcL Normal 0.09-1.40 [facility] ([place]) Comment on above: Performed By: #### G FR, MG, BMP, CBC, ADIFF, ANEU #### [address] [address] Monocytes/100 WBC (Bld) 6.2 % Normal 2.0-13.0 [facility] ([place]) Comment on above: Performed By: #### G FR, MG, BMP, CBC, ADIFF, ANEU #### [address] [address] Neutrophils/100 WBC (Bld) 62.6 % Normal 50.0-75.0 [facility] ([place]) Comment on above: Performed By: #### G FR, MG, BMP, CBC, ADIFF, ANEU #### [address] [address] .GFRon 01-27-2022 GFR >60 Normal [facility] ([place]) Comment on above: Result Comment: GFR Population [...] FR, MG, BMP, CBC, ADIFF, ANEU #### [address] [address] GFR Non- >60 Normal [facility] ([place]) Comment on above: Result Comment: GFR Population [...] FR, MG, BMP, CBC, ADIFF, ANEU #### [place] [id number] .NEUABSon 01-27-2022 Neutrophil, Absolute 5.10 10 3/mcL Normal 2.25-8.10 [facility] ([place]) Comment on above: Performed By: #### G FR, MG, BMP, CBC, ADIFF, ANEU #### [place] [address] A1Con 01-27-2022 HbA1c (Bld) [Mass fraction] 10.6 % High 4.0-6.0 [facility] ([place]) Comment on above: Performed By: #### C BC, GFR, ANEU, CMP, ADIFF #### [place] [address] APTTon 01-27-2022 aPTT Coag (Bld) [Time] 30.6 s Normal 25.0-35.0 [facility] ([place]) Comment on above: Result Comment: For Heparin anticoagulation therapy, the recommended therapeutic range is: 54-77 seconds (APTT Correlation with Anti-Xa therapeutic range of 0.3-0.7 units/ml). PLEASE REFERENCE THE PHARMACY PROTOCOL FOR DOSING. Performed By: #### C BC, GFR, ANEU, CMP, ADIFF #### [place] [address] Heparin dose (APTT) None Normal [facility] ([place]) Comment on above: Result Comment: Spec imen slightly lipemic; results may be affected. Performed By: #### C BC, GFR, ANEU, CMP, ADIFF #### [address] [address] BGon 01-27-2022 Barometric Pressure 742 mmHg Normal [facility] ([place]) Comment on above: Order Comment: on Ro om Air. Preop Cardiothoracic OR (date) Performed By: #### C BC, GFR, ANEU, CMP, ADIFF #### [address] [address] Base excess Calc (Bld) [Moles/Vol] -0.5000 mmol/L Normal [facility] ([place]) Comment on above: Order Comment: on Ro om Air. Preop Cardiothoracic OR (date) Performed By: #### C BC, GFR, ANEU, CMP, ADIFF #### [address] [address] CO2 [Moles/Vol] 25.3 mmol/L Normal 22.0-30.0 [facility] ([place]) Comment on above: Order Comment: on Ro om Air. Preop Cardiothoracic OR (date) Performed By: #### C BC, GFR, ANEU, CMP, ADIFF #### [place] [phone] HCO3 (Bld) [Moles/Vol] 24.1 mmol/L Normal 21.0-29.0 [facility] ([place]) Comment on above: Order Comment: on Ro om Air. Preop Cardiothoracic OR (date) Performed By: #### C BC, GFR, ANEU, CMP, ADIFF #### [place] [phone] Oxygen (Bld) [Partial pressure] 66.5 mm[Hg] Low 74.0-108.0 [facility] ([place]) Comment on above: Order Comment: on Ro om Air. Preop Cardiothoracic OR (date) Performed By: #### C BC, GFR, ANEU, CMP, ADIFF #### [address] [address] Oxygen saturation in Blood 93.3 % Normal 92.0-96.0 [facility] ([place]) Comment on above: Order Comment: on Ro om Air. Preop Cardiothoracic OR (date) Performed By: #### C BC, GFR, ANEU, CMP, ADIFF #### [address] [address] pCO2 39.5 mmHg Normal 32.0-46.0 [facility] ([place]) Comment on above: Order Comment: on Ro om Air. Preop Cardiothoracic OR (date) Performed By: #### C BC, GFR, ANEU, CMP, ADIFF #### [address] [address] pH (Bld) 7.403 [pH] Normal 7.380-7.460 [facility] ([place]) Comment on above: Order Comment: on Ro om Air. Preop Cardiothoracic OR (date) Performed By: #### C BC, GFR, ANEU, CMP, ADIFF #### [address] [address] BMPon 01-27-2022 BUN/Creatinine Ratio 28.8 ratio High 10.0-22.0 [facility] ([place]) Comment on above: Performed By: #### G FR, MG, BMP, CBC, ADIFF, ANEU #### [address] [address] Calcium [Mass/Vol] 9.8 mg/dL Normal 8.7-10.4 [facility] ([place]) Comment on above: Result Comment: No te - New Reference Range in effect 20 Performed By: #### G FR, MG, BMP, CBC, ADIFF, ANEU #### [address] [address] Chloride [Moles/Vol] 106 mmol/L Normal 98-110 [facility] ([place]) Comment on above: Performed By: #### G FR, MG, BMP, CBC, ADIFF, ANEU #### [address] [address] CO2 [Moles/Vol] 27 mmol/L Normal 22-32 [facility] ([place]) Comment on above: Performed By: #### G FR, MG, BMP, CBC, ADIFF, ANEU #### [address] [address] Creatinine [Mass/Vol] 0.73 mg/dL Normal 0.60-1.40 [facility] ([place]) Comment on above: Performed By: #### G FR, MG, BMP, CBC, ADIFF, ANEU #### [address] [address] Electrolyte Balance 4.0 mEq/L Normal 4.0-15.0 [facility] ([place]) Comment on above: Performed By: #### G FR, MG, BMP, CBC, ADIFF, ANEU #### [place] [id number] Glucose [Mass/Vol] 274 mg/dL High 70-110 [facility] ([place]) Comment on above: Performed By: #### G FR, MG, BMP, CBC, ADIFF, ANEU #### [place] [id number] Potassium [Moles/Vol] 4.2 mmol/L Normal 3.5-5.0 [facility] ([place]) Comment on above: Performed By: #### G FR, MG, BMP, CBC, ADIFF, ANEU #### [place] [address] Sodium [Moles/Vol] 137 mmol/L Normal 136-145 [facility] ([place]) Comment on above: Performed By: #### G FR, MG, BMP, CBC, ADIFF, ANEU #### [place] [id number] Urea nitrogen [Mass/Vol] 21.0 mg/dL Normal 8.0-22.0 [facility] ([place]) Comment on above: Performed By: #### G FR, MG, BMP, CBC, ADIFF, ANEU #### [address] [address] CBCon 01-27-2022 Erythrocyte distribution width (RBC) [Ratio] 13.2 % Normal 11.5-15.5 [facility] ([place]) Comment on above: Performed By: #### G FR, MG, BMP, CBC, ADIFF, ANEU #### [place] [address] Hematocrit (Bld) [Volume fraction] 44.0 % Normal 40.0-52.0 [facility] ([place]) Comment on above: Performed By: #### G FR, MG, BMP, CBC, ADIFF, ANEU #### [place] [address] Hgb 15.2 G/dL Normal 13.0-17.5 [facility] ([place]) Comment on above: Performed By: #### G FR, MG, BMP, CBC, ADIFF, ANEU #### [place] [address] MCH (RBC) [Entitic mass] 30.6 pg Normal 27.0-33.0 [facility] ([place]) Comment on above: Performed By: #### G FR, MG, BMP, CBC, ADIFF, ANEU #### [place] [address] MCHC 34.5 G/dL Normal 32.0-36.0 [facility] ([place]) Comment on above: Performed By: #### G FR, MG, BMP, CBC, ADIFF, ANEU #### [place] [address] MCV (RBC) [Entitic vol] 88.9 fL Normal 81.0-100.0 [facility] ([place]) Comment on above: Performed By: #### G FR, MG, BMP, CBC, ADIFF, ANEU #### [place] [address] Platelet 240 10 3/mcL Normal 150-450 [facility] ([place]) Comment on above: Performed By: #### G FR, MG, BMP, CBC, ADIFF, ANEU #### [place] [address] Platelet mean volume (Bld) [Entitic vol] 7.8 fL Normal 6.4-10.5 [facility] ([place]) Comment on above: Performed By: #### G FR, MG, BMP, CBC, ADIFF, ANEU #### [place] [address] RBC 4.95 10 6/mcL Normal 4.50-6.00 [facility] ([place]) Comment on above: Performed By: #### G FR, MG, BMP, CBC, ADIFF, ANEU #### [place] [address] WBC 8.20 10 3/mcL Normal 4.50-10.80 [facility] ([place]) Comment on above: Performed By: #### G FR, MG, BMP, CBC, ADIFF, ANEU #### [place] [address] CVFLURVon 01-27-2022 Date of Onset [id number] Invalid Interpretation Code [facility] ([place]) Comment on above: Performed By: #### G FR, MG, BMP, CBC, ADIFF, ANEU #### [place] [address] Employed in Healthcare [facility] ([place]) Comment on above: Performed By: #### G FR, MG, BMP, CBC, ADIFF, ANEU #### [place] [address] First Test Unknown [facility] ([place]) Comment on above: Performed By: #### G FR, MG, BMP, CBC, ADIFF, ANEU #### [place] [address] FLU A PCR Negative Normal Negative [facility] ([place]) Comment on above: Result Comment: Note s 1990 Performed By: #### G FR, MG, BMP, CBC, ADIFF, ANEU #### [place] [address] FLU B PCR Negative Normal Negative [facility] ([place]) Comment on above: Result Comment: Note s 1990 Performed By: #### G FR, MG, BMP, CBC, ADIFF, ANEU #### [place] [address] Hospitalized Yes [facility] ([place]) Comment on above: Performed By: #### G FR, MG, BMP, CBC, ADIFF, ANEU #### [place] [address] ICU No [facility] ([place]) Comment on above: Performed By: #### G FR, MG, BMP, CBC, ADIFF, ANEU #### [facility] [address] [place] [id number] Not Normal [facility] ([place]) Comment on above: Performed By: #### G FR, MG, BMP, CBC, ADIFF, ANEU #### [place] [address] Resides in Congregate Care Setting No Normal [facility] ([place]) Comment on above: Performed By: #### G FR, MG, BMP, CBC, ADIFF, ANEU #### [place] [address] RSV PCR Negative Normal Negative [facility] ([place]) Comment on above: Result Comment: Note s 1990 Performed By: #### G FR, MG, BMP, CBC, ADIFF, ANEU #### [place] [address] SARS-CoV-2 (COVID-19) RNA KIM+probe Ql (Unsp spec) Negative Normal Negative [facility] ([place]) Comment on above: Result Comment: Note s [...] FR, MG, BMP, CBC, ADIFF, ANEU #### [address] [address] Symptomatic as Defined by CDC No Normal [facility] ([place]) Comment on above: Performed By: #### G FR, MG, BMP, CBC, ADIFF, ANEU #### [address] [address] FIBon 01-27-2022 Fibrinogen 463 mg/dL Normal 250-560 [facility] ([place]) Comment on above: Performed By: #### C BC, GFR, ANEU, CMP, ADIFF #### [place] [id number] HFPon 01-27-2022 Albumin Level 3.6 G/dL Normal 3.2-4.8 [facility] ([place]) Comment on above: Performed By: #### C BC, GFR, ANEU, CMP, ADIFF #### [place] [address] Albumin/Globulin [Mass ratio] 1.2 {ratio} Normal 0.9-1.6 [facility] ([place]) Comment on above: Performed By: #### C BC, GFR, ANEU, CMP, ADIFF #### [place] [address] ALP [Catalytic activity/Vol] 87 U/L Normal 38-126 [facility] ([place]) Comment on above: Performed By: #### C BC, GFR, ANEU, CMP, ADIFF #### [place] [id number] ALT [Catalytic activity/Vol] 42 U/L Normal 12-55 [facility] ([place]) Comment on above: Performed By: #### C BC, GFR, ANEU, CMP, ADIFF #### [place] [id number] AST [Catalytic activity/Vol] 25 U/L Normal 8-34 [facility] ([place]) Comment on above: Performed By: #### C BC, GFR, ANEU, CMP, ADIFF #### [place] [address] Bili Direct <0.1 Normal 0.0-0.4 [facility] ([place]) Comment on above: Result Comment: Use of this assay is not recommended for patients undergoing treatment with eltrombopag due to the potential for falsely elevated results. Performed By: #### C BC, GFR, ANEU, CMP, ADIFF #### [place] [id number] Bili Indirect see comment Normal 0.1-10.0 [facility] ([place]) Comment on above: Result Comment: Unab le to calculate this test result accurately. Results used to calculate this test are outside the reportable range. Performed By: #### C BC, GFR, ANEU, CMP, ADIFF #### [place] [id number] Bili Total 0.40 mg/dL Normal 0.20-1.20 [facility] ([place]) Comment on above: Result Comment: Use of this assay is not recommended for patients undergoing treatment with eltrombopag due to the potential for falsely elevated results. Performed By: #### C BC, GFR, ANEU, CMP, ADIFF #### [place] [id number] Globulin 3.1 G/dL Normal 1.5-3.8 [facility] ([place]) Comment on above: Performed By: #### C BC, GFR, ANEU, CMP, ADIFF #### [place] [address] Total Protein 6.7 G/dL Normal 5.7-8.2 [facility] ([place]) Comment on above: Result Comment: No te - New Reference Range in effect 20 Performed By: #### C BC, GFR, ANEU, CMP, ADIFF #### [place] [address] LABORATORYOrdered By: Valeria Schulz on 01-27-2022 Albumin [...] 01-27-2022 Platelet 256 10 3/mcL Normal 150-450 [facility] ([place]) Comment on above: Performed By: #### C BC, GFR, ANEU, CMP, ADIFF #### [facility] [address] [place] [id number] PROon 01-27-2022 INR Coag (PPP) [Relative time] 1.0 {INR} Normal [facility] ([place]) Comment on above: Result Comment: The [employer] (CHEST, 1992, 102:[id number]) recommended therapeutic range for oral anticoagulant therapy is: LOW RISK: Prophylaxis of venous thrombosis INR: 2.0-3.0 Treatment of pulmonary embolism 2.0-3.0 Prevention of systemic embolism 2.0-3.0 HIGH RISK: Mechanical prosthetic valves 2.5-3.5 Performed By: #### C BC, GFR, ANEU, CMP, ADIFF #### [facility] [address] [place] [id number] PT Coag (PPP) [Time] 11.5 s Normal 9.0-14.9 [facility] ([place]) Comment on above: Result Comment: Effe ctive 04/04/08, Protime results may be affected by some antibiotics (i.e. Ciprofloxacin, Azithromycin, Bactrim) which may potentiate the action of oral anticoagulants, with further increases in Protime/INR. Performed By: #### C BC, GFR, ANEU, CMP, ADIFF #### [address] [address] TSHon 01-27-2022 TSH 2.138 mIU/mL Normal 0.550-4.780 [facility] ([place]) Comment on above: Result Comment: No te - New Reference Range in effect 20 Performed By: #### C BC, GFR, ANEU, CMP, ADIFF #### [place] [id number] UAon 01-27-2022 Color (U) Yellow Normal [facility] ([place]) Comment on above: Performed By: #### C BC, GFR, ANEU, CMP, ADIFF #### [place] [address] Glucose (U) [Mass/Vol] 500 mg/dL Abnormal Negative [facility] ([place]) Comment on above: Performed By: #### C BC, GFR, ANEU, CMP, ADIFF #### [address] [address] Ketones Ql (U) Negative Normal Neg-Trace [facility] ([place]) Comment on above: Performed By: #### C BC, GFR, ANEU, CMP, ADIFF #### [place] [address] UA Appear Clear Normal Clear [facility] ([place]) Comment on above: Performed By: #### C BC, GFR, ANEU, CMP, ADIFF #### [address] [address] UA Blood Negative Normal Neg-Trace [facility] ([place]) Comment on above: Performed By: #### C BC, GFR, ANEU, CMP, ADIFF #### [address] [address] UA Leuk Est Negative Normal Negative [facility] ([place]) Comment on above: Performed By: #### C BC, GFR, ANEU, CMP, ADIFF #### [address] [address] UA Nitrite Negative Normal Negative [facility] ([place]) Comment on above: Performed By: #### C BC, GFR, ANEU, CMP, ADIFF #### [address] [address] UA pH 5.5 Normal 5.0 - 8.0 [facility] ([place]) Comment on above: Performed By: #### C BC, GFR, ANEU, CMP, ADIFF #### [address] [address] UA Protein Negative Normal Negative [facility]) Comment on above: Performed By: #### C BC, GFR, ANEU, CMP, ADIFF #### [address] [address] UA Spec Grav >=1.030 Abnormal 1.006-1.029 [facility] ([place]) Comment on above: Performed By: #### C BC, GFR, ANEU, CMP, ADIFF #### [address] [address] UA Specimen Type Clean Catch Normal [facility] ([place]) Comment on above: Performed By: #### C BC, GFR, ANEU, CMP, ADIFF #### [address] [address] UA Urobilinogen 0.2 E.U./dL Normal 0.2-1.0 [facility] ([place]) Comment on above: Performed By: #### C BC, GFR, ANEU, CMP, ADIFF #### [address] [address] Urobilinogen (U) [Mass/Vol] Negative Normal Neg-Trace [facility] ([place]) Comment on above: Performed By: #### C BC, GFR, ANEU, CMP, ADIFF #### [address] [address] Hemoglobin A1con 01-02-2021 HbA1c (Bld) [Mass fraction] 10.5 % High 4.3-5.6 [facility] Comment on above: Performed By: #### H BA1C #### [facility] Routine Lab [address] [place] [address] HbA1c (Bld) [Mass fraction] 255 mg/dL Normal [facility] Comment on above: Performed By: #### H BA1C #### [facility] Routine Lab [address] [place] [id number] Coronavirus 2019on 0 COVID 19 Result POT RELINER Normal Negative for COVID19 (SARS CoV2) by PCR. [facility] Comment on above: Result Comment: Nega tive for This test was developed and its performance characteristics determined by [facility] [place]. This test has been authorized by [facility] under an Emergency Use Authorization (EUA). This test has been validated in accordance with the FDA's Guidance Document Policy for Diagnostics Testing in Laboratories Certified to Perform High Complexity Testing under CLIA prior to Emergency use Authorization for Coronavirus Disease 2019 during the Public Health Emergency issued on November 19, 2019. COVID19 (SARS This test was developed and its performance characteristics determined by [facility] [place]. This test has been authorized by FDA [...] developed and its performance characteristics determined by [facility] [place]. This test has been authorized by FDA [...] 2019. Coronavirus 2019on 0 COVID 19 Source POT RELINER Normal [facility] Comment on above: Result Comment: Naso pharyngeal Corrected on 08/03 AT 1310: Previously reported as NASAL Swab Corrected on 08/03 AT 1310: Previously reported as NASAL Hemoglobin A1con 06-20-2020 HbA1c (Bld) [Mass fraction] 10.9 % High 4.3-5.6 [facility] Comment on above: Performed By: #### H BA1C #### [facility] Routine Lab [address] [place], [place] [address] HbA1c (Bld) [Mass fraction] 266 mg/dL Normal [facility] Comment on above: Performed By: #### H BA1C #### [facility] Routine Lab [address] [place] [address] Coronavirus 2019on 0 COVID 19 Source POT RELINER POT RELINER Normal [facility] Comment on above: Performed By: #### C OVID #### [facility] [address] [place] [id number] COVID 19 Result POT RELINER Normal Negative for COVID19 (SARS CoV2) by PCR. [facility] Comment on above: Result Comment: Nega tive for This test was developed and its performance characteristics determined by [facility] [place]. This test has been authorized by FDA [...] developed and its performance characteristics determined by [facility] [place]. This test has been authorized by FDA [...] developed and its performance characteristics determined by [facility] [place]. This test has been authorized by FDA [...] 2019. Performed By: #### C OVID #### [facility] [address] [place] [address] Hemoglobin A1con 01-26-2020 HbA1c (Bld) [Mass fraction] 10.5 % High 4.3-5.6 [facility] Comment on above: Performed By: #### H BA1C #### [facility] Routine Lab [address] [place] [address] HbA1c (Bld) [Mass fraction] 255 mg/dL Normal [facility] Comment on above: Performed By: #### H BA1C #### [facility] Routine Lab [address] [place] [id number] Rx Refill: eRx Request for P ROAIR HFA 108 (90 BASE) MCG/ACT INH AERSon 02-13-2017 [facility]_RR [id number]`PROAIR HFA 108 (90 BASE) MCG/ACT INH AERS```2 Inhalation``2 puffs INH q 4-6 hours PRN Wheezing``3`0`12/10/2016`No date sent`[facility]*`[id number]`VENTOLIN HFA 90 MCG INHALER 90 MCG AERO Quantity: 36 Gram Instructions: INHALE 2 PUFFS BY MOUTH EVERY 4-6 HOURS NEEDED FOR WHEEZING [facility] Work Phone: Office Visiton 08-11-2016 Tobacco smoking status [facility] Current [facility] Work Phone: Tobacco smoking status [facility] Current every day smoker [facility] Work Phone: Vital Signs Date Time Vital Sign Value Performing Clinician Facility 03-23-2025 11:34-0400 Body height 185.[address] Gilson Hawk DO Work Phone: [facility] 03-23-2025 11:34-0400 Body mass index (BMI) [Ratio] 33.6 kg/m2 Dr. Gilson Hawk DO Work Phone: [facility] 03-23-2025 11:34-0400 Body weight 115.[address] Gilson Hawk DO Work Phone: [facility] 03-23-2025 11:34-0400 Diastolic blood pressure 83 mm[Hg] Dr. Gilson Hawk DO Work Phone: [facility] 03-23-2025 11:34-0400 Heart rate 91 /min Dr. Gilson Hawk DO Work Phone: [facility] 03-23-2025 11:34-0400 SaO2% (BldA) [Mass fraction] 92 % Dr. Gilson Hawk DO Work Phone: [facility] 03-23-2025 11:34-0400 Systolic blood pressure 123 mm[Hg] Dr. Gilson Hawk DO Work Phone: [facility] 03-21-2025 11:26-0400 Body height 185.[address] Gilson Hawk DO Work Phone: [facility] 03-21-2025 11:26-0400 Body mass index (BMI) [Ratio] 33.3 kg/m2 Dr. Gilson Hawk DO Work Phone: [facility] 03-21-2025 11:26-0400 Body temperature 96.4 [degF] Dr. Gilson Hawk DO Work Phone: [facility] 03-21-2025 11:26-0400 Body weight 114.[address] Gilson Hawk DO Work Phone: [facility] 03-21-2025 11:26-0400 Diastolic blood pressure 78 mm[Hg] Dr. Gilson Hawk DO Work Phone: [facility] 03-21-2025 11:26-0400 Heart rate 93 /min Dr. Gilson Hawk DO Work Phone: [facility] 03-21-2025 11:26-0400 Respiratory rate 16 /min Dr. Gilson Hawk DO Work Phone: [facility] 03-21-2025 11:26-0400 SaO2% (BldA) [Mass fraction] 94 % Dr. Gilson Hawk DO Work Phone: [facility] 03-21-2025 11:26-0400 Systolic blood pressure 124 mm[Hg] Dr. Gilson Hawk DO Work Phone: [facility] 02-24-2025 10:16-0400 Body height 185.[address] Gilson Hawk DO Work Phone: [facility] 02-24-2025 10:16-0400 Body mass index (BMI) [Ratio] 33.5 kg/m2 Dr. Gilson Hawk DO Work Phone: [facility] 02-24-2025 10:16-0400 Body temperature 98.4 [degF] Dr. Gilson Hawk DO Work Phone: [facility] 02-24-2025 10:16-0400 Body weight 115.[address] Gilson Hawk DO Work Phone: [facility] 02-24-2025 10:16-0400 Diastolic blood pressure 87 mm[Hg] Dr. Gilson Hawk DO Work Phone: [facility] 02-24-2025 10:16-0400 Heart rate 94 /min Dr. Gilson Hawk DO Work Phone: [facility] 02-24-2025 10:16-0400 Respiratory rate 16 /min Dr. Gilson Hawk DO Work Phone: [facility] 02-24-2025 10:16-0400 SaO2% (BldA) [Mass fraction] 94 % Dr. Gilson Hawk DO Work Phone: [facility] 02-24-2025 10:16-0400 Systolic blood pressure 136 mm[Hg] Dr. Gilson Hawk DO Work Phone: [facility] 02-22-2025 10:35-0400 Body height 185.[address] Gilson Hawk DO Work Phone: [facility] 02-22-2025 10:35-0400 Body mass index (BMI) [Ratio] 33 kg/m2 Dr. Gilson Hawk DO Work Phone: [facility] 02-22-2025 10:35-0400 Body temperature 97.3 [degF] Dr. Gilson Hawk DO Work Phone: [facility] 02-22-2025 10:35-0400 Body weight 113.[address] Gilson Hawk DO Work Phone: [facility] 02-22-2025 10:35-0400 Diastolic blood pressure 82 mm[Hg] Dr. Gilson Hawk DO Work Phone: [facility] 02-22-2025 10:35-0400 Heart rate 82 /min Dr. Gilson Hawk DO Work Phone: [facility] 02-22-2025 10:35-0400 Respiratory rate 20 /min Dr. Gilson Hawk DO Work Phone: [facility] 02-22-2025 10:35-0400 SaO2% (BldA) [Mass fraction] 94 % Dr. Gilson Hawk DO Work Phone: [facility] 02-22-2025 10:35-0400 Systolic blood pressure 124 mm[Hg] Dr. Gilson Hawk DO Work Phone: [facility] 01-30-2025 13:46-0400 Body mass index (BMI) [Ratio] 32.9 kg/m2 Dr. Gilson Hawk DO Work Phone: [facility] 01-30-2025 13:46-0400 Body weight 113.[address] Gilson Hawk DO Work Phone: [facility] 01-30-2025 13:46-0400 Diastolic blood pressure 83 mm[Hg] Dr. Gilson Hawk DO Work Phone: [facility] 01-30-2025 13:46-0400 Heart rate 89 /min Dr. Gilson Hawk DO Work Phone: [facility] 01-30-2025 13:46-0400 SaO2% (BldA) [Mass fraction] 93 % Dr. Gilson Hawk DO Work Phone: [facility] 01-30-2025 13:46-0400 Systolic blood pressure 118 mm[Hg] Dr. Gilson Hawk DO Work Phone: [facility] 01-18-2025 14:15-0400 Body mass index (BMI) [Ratio] 33.4 kg/m2 Dr. Gilson Hawk DO Work Phone: [facility] 01-18-2025 14:15-0400 Body weight 114.[address] Gilson Hawk DO Work Phone: [facility] 12-14-2024 12:52-0400 Body mass index (BMI) [Ratio] 32.8 kg/m2 Dr. Gilson Hawk DO Work Phone: [facility] 12-14-2024 12:52-0400 Body temperature 98 [degF] Dr. Gilson Hawk DO Work Phone: [facility] 12-14-2024 12:52-0400 Body weight 112.[address] Gilson Hawk DO Work Phone: [facility] 12-14-2024 12:52-0400 Diastolic blood pressure 78 mm[Hg] Dr. Gilson Hawk DO Work Phone: [facility] 12-14-2024 12:52-0400 Heart rate 86 /min Dr. Gilson Hawk DO Work Phone: [facility] 12-14-2024 12:52-0400 Respiratory rate 16 /min Dr. Gilson Hawk DO Work Phone: [facility] 12-14-2024 12:52-0400 SaO2% (BldA) [Mass fraction] 93 % Dr. Gilson Hawk DO Work Phone: [facility] 12-14-2024 12:52-0400 Systolic blood pressure 118 mm[Hg] Dr. Gilson Hawk DO Work Phone: [facility] 12-12-2024 13:25-0400 Body mass index (BMI) [Ratio] 33 kg/m2 Dr. Gilson Hawk DO Work Phone: [facility] 12-12-2024 13:25-0400 Body weight 113.[address] Gilson Hawk DO Work Phone: [facility] 12-12-2024 13:25-0400 Diastolic blood pressure 74 mm[Hg] Dr. Gilson Hawk DO Work Phone: [facility] 12-12-2024 13:25-0400 Heart rate 95 /min Dr. Gilson Hawk DO Work Phone: [facility] 12-12-2024 13:25-0400 SaO2% (BldA) [Mass fraction] 92 % Dr. Gilson Hawk DO Work Phone: [facility] 12-12-2024 13:25-0400 Systolic blood pressure 126 mm[Hg] Dr. Gilson Hawk DO Work Phone: [facility] 11-01-2024 13:14-0500 Body mass index (BMI) [Ratio] 32.3 kg/m2 Dr. Gilson Hawk DO Work Phone: [facility] 11-01-2024 13:14-0500 Body temperature 97.8 [degF] Dr. Gilson Hawk DO Work Phone: [facility] 11-01-2024 13:14-0500 Body weight 111.[address] Gilson Hawk DO Work Phone: [facility] 11-01-2024 13:14-0500 Diastolic blood pressure 70 mm[Hg] Dr. Gilson Hawk DO Work Phone: [facility] 11-01-2024 13:14-0500 Heart rate 88 /min Dr. Gilson Hawk DO Work Phone: [facility] 11-01-2024 13:14-0500 Respiratory rate 16 /min Dr. Gilson Hawk DO Work Phone: [facility] 11-01-2024 13:14-0500 SaO2% (BldA) [Mass fraction] 93 % Dr. Gilson Hawk DO Work Phone: [facility] 11-01-2024 13:14-0500 Systolic blood pressure 122 mm[Hg] Dr. Gilson Hawk DO Work Phone: [facility] 10-31-2024 14:22-0500 Body mass index (BMI) [Ratio] 32.9 kg/m2 Dr. Gilson Hawk DO Work Phone: [facility] 10-31-2024 14:22-0500 Body weight 113.[address] Gilson Hawk DO Work Phone: [facility] 10-31-2024 14:22-0500 Diastolic blood pressure 71 mm[Hg] Dr. Gilson Hawk DO Work Phone: [facility] 10-31-2024 14:22-0500 Heart rate 84 /min Dr. Gilson Hawk DO Work Phone: [facility] 10-31-2024 14:22-0500 SaO2% (BldA) [Mass fraction] 91 % Dr. Gilson Hawk DO Work Phone: [facility] 10-31-2024 14:22-0500 Systolic blood pressure 114 mm[Hg] Dr. Gilson Hawk DO Work Phone: [facility] 12-10-2022 17:43-0400 Body height 182.88 cm [facility] 12-10-2022 17:43-0400 Body mass index (BMI) [Ratio] 33.3 kg/m2 [facility] 12-10-2022 17:43-0400 Body temperature 96.9 [degF] [facility] 12-10-2022 17:43-0400 Body weight 111.58 kg [facility] 12-10-2022 17:43-0400 Diastolic blood pressure 94 mm[Hg] [facility] 12-10-2022 17:43-0400 Heart rate 89 /min [facility] 12-10-2022 17:43-0400 Respiratory rate 18 /min [facility] 12-10-2022 17:43-0400 SaO2% (BldA) [Mass fraction] 98 % [facility] 12-10-2022 17:43-0400 Systolic blood pressure 142 mm[Hg] [facility] 02-06-2022 11:30-0400 Heart rate 90 /min DR AMANDA CAIN MD [facility] 02-06-2022 10:51-0400 Heart rate 78 /min DR AMANDA CAIN MD [facility] 02-06-2022 10:51-0400 Respiratory rate 18 /min DR AMANDA CAIN MD [facility] 02-06-2022 10:39-0400 Body temperature 98.42 [degF] DR AMANDA CAIN MD [facility] 02-06-2022 10:39-0400 Diastolic Blood Pressure NBP [address] AMANDA CAIN MD [facility] 02-06-2022 10:39-0400 Heart rate 75 /min DR AMANDA CAIN MD [facility] 02-06-2022 10:39-0400 Reason For Taking VItal Signs DR AMANDA CAIN MD [facility] 02-06-2022 10:39-0400 Respiratory rate 18 /min DR AMANDA CAIN MD [facility] 02-06-2022 10:39-0400 Systolic Blood Pressure NBP [address] AMANDA CAIN MD [address] [place] [address] 02-06-2022 08:14-0400 Heart rate 75 /min DR AMANDA CAIN MD [address] [place] [address] 02-06-2022 08:14-0400 Heart rate 76 /min DR AMANDA CAIN MD [address] [place] [address] 02-06-2022 07:05-0400 Body temperature 98.42 [degF] DR AMANDA CAIN MD [address] [place] [address] 02-06-2022 07:05-0400 Diastolic Blood Pressure NBP [address] AMANDA CAIN MD [address] 02-06-2022 07:05-0400 Mean blood pressure 76 mm[Hg] DR AMANDA CAIN MD [address] 02-06-2022 07:05-0400 Reason For Taking VItal Signs DR AMANDA CAIN MD [facility] 02-06-2022 07:05-0400 Respiratory rate 18 /min DR AMANDA CAIN MD [facility] 02-06-2022 07:05-0400 Systolic Blood Pressure NBP [address] AMANDA CAIN MD [facility] 02-06-2022 06:46-0400 Heart rate 75 /min DR AMANDA CAIN MD [facility] 02-06-2022 04:47-0400 Body weight 105.[address] AMANDA CAIN MD [facility] 02-06-2022 04:30-0400 Reason For Taking VItal Signs DR AMANDA CAIN MD [address] [place] [address] 02-06-2022 04:26-0400 Body temperature 98.42 [degF] DR AMANDA CAIN MD [address] [place] [address] 02-06-2022 04:26-0400 Diastolic Blood Pressure NBP [address] MAANDA CAIN MD [address] [place] [address] 02-06-2022 04:26-0400 Mean blood pressure 83 mm[Hg] DR AMANDA CAIN MD [facility] 02-06-2022 04:26-0400 Systolic Blood Pressure NBP [address] AMANDA CAIN MD [address] [place] [address] 02-05-2022 22:30-0400 Heart rate 76 /min DR AMANDA CAIN MD [facility] 02-05-2022 22:08-0400 Mean blood pressure 89 mm[Hg] DR AMANDA CAIN MD [facility] 02-05-2022 08:08-0400 Heart rate 89 /min DR AMANDA CAIN MD [address] [place] [address] 02-04-2022 08:30-0400 Heart rate 81 /min DR AMANDA CAIN MD [facility] 02-04-2022 05:24-0400 Body weight 110.[address] AMANDA CAIN MD [address] [place] [address] 02-03-2022 23:48-0400 Body weight 110.[address] AMANDA CAIN MD [address] [place] [address] 02-01-2022 11:00-0400 Mean blood pressure 68 mm[Hg] DR AMANDA CAIN MD [address] [place] [address] 02-01-2022 11:00-0400 Systolic blood pressure 86 mm[Hg] DR AMANDA CAIN MD [address] [place] [address] 02-01-2022 07:52-0400 Diastolic blood pressure 67 mm[Hg] DR AMANDA CAIN MD [facility] 02-01-2022 07:52-0400 Mean blood pressure 82 mm[Hg] DR AMANDA CAIN MD [facility] 02-01-2022 07:52-0400 Systolic blood pressure 105 mm[Hg] DR AMANDA CAIN MD [facility] 02-01-2022 07:15-0400 Diastolic blood pressure 55 mm[Hg] DR AMANDA CAIN MD [address] [place] [address] 02-01-2022 07:15-0400 Mean blood pressure 69 mm[Hg] DR AMANDA CAIN MD [facility] 02-01-2022 07:15-0400 Systolic blood pressure 94 mm[Hg] DR AMANDA CAIN MD [facility] 02-01-2022 04:12-0400 SaO2% (BldA) [Mass fraction] 93.7 % DR AMANDA CAIN MD [facility] 01-31-2022 23:10-0400 SaO2% (BldA) [Mass fraction] 94.8 % DR AMANDA CAIN MD [facility] 01-31-2022 21:18-0400 SaO2% (BldA) [Mass fraction] 97.8 % DR AMANDA CAIN MD [facility] 01-31-2022 16:00-0400 Body temperature 99.46 [degF] DR AMANDA CAIN MD [facility] 01-31-2022 15:55-0400 Body temperature 99.63 [degF] DR AMANDA CAIN MD [facility] 01-31-2022 15:50-0400 Body temperature 99.66 [degF] DR AMANDA CAIN MD [facility] 01-31-2022 15:50-0400 Body temperature 99.3 [degF] DR AMANDA CAIN MD [facility] 01-31-2022 15:45-0400 Body temperature 99.43 [degF] DR AMANDA CAIN MD [facility] 01-31-2022 15:40-0400 Body temperature 99.68 [degF] DR AMANDA CAIN MD [facility] 01-31-2022 15:34-0400 SaO2% (BldA) [Mass fraction] 97.5 % DR AMANDA CAIN MD [facility] 01-31-2022 15:06-0400 SaO2% (BldA) [Mass fraction] 99.7 % DR AMANDA CAIN MD [facility] 01-31-2022 14:36-0400 SaO2% (BldA) [Mass fraction] 99.7 % DR AMANDA CAIN MD [facility] 01-31-2022 11:09-0400 Diastolic blood pressure 64 mm[Hg] DR AMANDA CAIN MD [facility] 01-31-2022 11:09-0400 Mean blood pressure 81 mm[Hg] DR AMANDA CAIN MD [facility] 01-31-2022 11:09-0400 Systolic blood pressure 116 mm[Hg] DR AMANDA CAIN MD [facility] 01-31-2022 09:32-0400 Diastolic blood pressure 74 mm[Hg] DR AMANDA CAIN MD [facility] 01-31-2022 09:32-0400 Mean blood pressure 85 mm[Hg] DR AMANDA CAIN MD [facility] 01-31-2022 09:32-0400 Systolic blood pressure 108 mm[Hg] DR AMANDA CAIN MD [address] [place] [address] 01-31-2022 06:55-0400 Diastolic blood pressure 56 mm[Hg] DR AMANDA CAIN MD [address] [place] [address] 01-31-2022 06:55-0400 Mean blood pressure 66 mm[Hg] DR AMANDA CAIN MD [address] 01-31-2022 06:55-0400 Systolic blood pressure 86 mm[Hg] DR AMANDA CAIN MD [address] [place] [address] 01-29-2022 19:31-0400 Body temperature 96.44 [degF] DR AMANDA CAIN MD [address] 01-27-2022 08:29-0400 Body height [address] AMANDA CAIN MD [address] 01-27-2022 08:29-0400 Body weight 32.55 kg/m2 DR AMANDA CAIN MD [facility] 01-27-2022 06:40-0400 Body height [address] AMANDA CAIN MD [facility] 01-27-2022 06:40-0400 diastolic 91 mm[Hg] DR AMANDA CAIN MD [address] [place] [address] 01-27-2022 06:40-0400 systolic 134 mm[Hg] DR AMANDA CAIN MD [facility] 06-24-2016 08:35-0400 BMI (Body Mass Index) 36.15 kg/m2 Ebony Espinoza CNP [facility] Work Phone: 06-24-2016 08:35-0400 Body Temperature 97 [degF] Ebony Espinoza PHOTO EDITOR [facility] Work Phone: 06-24-2016 08:35-0400 Body Temperature 96.98 [degF] Ebony Espinoza CNP [facility] Work Phone: 06-24-2016 08:35-0400 Body weight 124.29 kg Ebony Espinoza CNP [facility] Work Phone: 06-24-2016 08:35-0400 Body weight 124.55 kg Ebony Espinoza PHOTO EDITOR [facility] Work Phone: 06-24-2016 08:35-0400 BP Diastolic 77 mm[Hg] Ebony Espinoza CNP [facility] Work Phone: 06-24-2016 08:35-0400 BP Systolic 129 mm[Hg] Ebony Espinoza CNP [facility] Work Phone: 06-24-2016 08:35-0400 BSA (Body Surface Area) 2.46 m2 Ebony Espinoza CNP [facility] Work Phone: 06-24-2016 08:35-0400 Height 185.42 cm Ebony Espinoza CNP [facility] Work Phone: 06-24-2016 08:35-0400 Pulse (Heart Rate) 66 /min Ebony Espinoza CNP [facility] Work Phone: 06-24-2016 08:35-0400 Pulse Oximetry 94 % Ebony Espinoza CNP [facility] Work Phone: 06-24-2016 08:35-0400 Respiratory Rate 18 /min Ebony Espinoza [facility] Work Phone: Encounters Encounter Date Encounter Type Care Provider Facility Start: 03-23-2025 End: 03-23-[address] Modesto Finney MD -[facility] Work Phone: Start: 03-23-2025 End: 03-23-[address] Gilson Hawk DO Work Phone: -[facility] Start: 03-21-2025 End: 03-21-[address] Gilson Fairchild DO -[facility] Work Phone: Start: 03-21-2025 End: 03-21-[address] Gilson Hawk DO Work Phone: -[facility] Start: 03-21-2025 End: 03-21-2025 ambulatory Gilson Hawk Facility:[facility] Start: 03-02-2025 End: 03-02-[address] Jim Self MD [facility] Work Phone: Start: 03-02-2025 End: 03-02-[address] Gilson Hawk DO Work Phone: [facility] Work Phone: Start: 02-24-2025 End: 02-24-[address] Weston Caro MD -[facility] Work Phone: Start: 02-24-2025 End: 02-24-[address] Gilson Hawk DO Work Phone: [facility] Work Phone: Start: 02-22-2025 End: 02-22-[address] Gilson Fairchild DO -[facility] Work Phone: Start: 02-22-2025 End: 02-22-[address] Gilson Hawk DO Work Phone: [facility] Work Phone: Start: 02-09-2025 ambulatory WESTON BROWNE [facility] Start: 01-30-2025 End: 01-30-2025 Patient encounter procedure Myra Alvarado POT RELINER-C -[facility] Work Phone: Start: 01-30-2025 End: 01-30-2025 ambulatory Myra Alvarado Facility:[facility] Start: 01-23-2025 ambulatory Weston Browne Facility :[facility] Start: 01-19-2025 End: 01-19-[address] Jim Self MD -[facility] Work Phone: Start: 01-19-2025 End: 01-19-2025 ambulatory Jim Self Facility:[facility] Start: 01-18-2025 End: 01-18-[address] Sanchez Kaminski MD -[facility] Start: 01-18-2025 End: 01-18-2025 ambulatory Sanchez Kaminski Facility:[facility] Start: 01-18-2025 End: 01-18-[address] Weston Browne DO -[facility] Work Phone: Start: 01-18-2025 End: 01-18-2025 ambulatory Gilson Hawk Facility:[facility] Start: 12-22-2024 ambulatory Yenny Vashti Abdirizak AGUIAR Facility :[facility] Start: 12-14-2024 End: 12-14-[address] Weston Caro MD -[facility] Work Phone: Start: 12-14-2024 End: 12-14-2024 ambulatory Gilson Hawk Facility:[facility] Start: 12-13-2024 End: 12-13-2024 ambulatory ANANYA HAYS Facility:[facility] Start: 12-12-2024 End: 12-12-2024 Patient encounter procedure Myra Alvarado POT RELINER-C -[facility] Work Phone: Start: 12-12-2024 End: 12-12-2024 ambulatory Myra Alvarado Facility:[facility] Start: 11-30-2024 End: 11-30-2024 ambulatory ANANYA SAÚL Facility:[facility] Start: 11-08-2024 ambulatory ANANYA SAÚL Facility :[facility] Start: 11-07-2024 ambulatory Gilson Hawk Facilit y:[facility] Start: 11-01-2024 End: 11-01-[address] Gilson Fairchild DO -[facility] Work Phone: Start: 11-01-2024 End: 11-01-2024 ambulatory Gilson Hawk Facility:[facility] Start: 10-31-2024 End: 10-31-2024 Patient encounter procedure Myra Alvarado POT RELINER-C -[facility] Work Phone: Start: 10-31-2024 End: 10-31-2024 ambulatory Myra Alvarado Facility:[facility] Start: 10-21-2024 End: 10-21-2024 ambulatory Jim Sesaysanford Facility:[facility] Start: 10-21-2024 End: 10-21-2024 ambulatory Ebony Espinoza NP Facility:[facility] Start: 10-17-2024 End: 10-17-2024 ambulatory Nael Miller Facility:[facility] Start: 10-12-2024 End: 10-12-2024 ambulatory Chris Gasca [facility] Start: 10-12-2024 End: 10-12-2024 Subsequent hospital visit by physician Chris Gasca Work Phone: [phone] [facility] Comment on above: Chronic obstructive pulmonary disease, unspecified COPD type (HCC) Start: 10-05-2024 ambulatory Jim Mollison Facility :[facility] Start: 10-05-2024 End: 10-05-2024 ambulatory Jim Mollison Facility:[facility] Start: 09-06-2024 End: 09-06-2024 ambulatory Jim Sesayison Facility:[facility] Start: 08-31-2024 End: 08-31-2024 ambulatory Gilson Fairchild Michael Facility:[facility] Start: 08-30-2024 End: 08-30-2024 ambulatory Weston Caro Facility:[facility] Start: 07-20-2024 End: 07-20-2024 ambulatory Abisai Hernandez NP Facility:[facility] Start: 07-20-2024 End: 07-20-2024 ambulatory Gilson Hawk Facility:[facility] Start: 06-20-2024 End: 06-20-2024 ambulatory LATASHA MD [facility] Start: 05-20-2024 ambulatory ABISAI PHOTO EDITOR MARY [facility] Start: 05-19-2024 End: 05-19-2024 ambulatory Abisai Hernandez POT RELINER Facility:[facility] Start: 04-14-2024 ambulatory Abisai Hernandez POT RELINER Facil ity:[facility] Start: 04-12-2024 End: 04-12-2024 ambulatory ANANYA HAYS Facility: Start: 04-08-2024 End: 04-08-2024 ambulatory Abisai Hernandez POT RELINER Facility:[facility] Start: 04-05-2024 End: 04-05-2024 ambulatory Abisai Hernandez POT RELINER [facility] Start: 03-28-2024 End: 03-28-2024 ambulatory [facility] Facility: Start: 12-10-2022 End: 12-10-2022 Emergency department patient visit [facility] Start: 07-15-2022 End: 07-16-2022 ambulatory ABISAI HERNANDEZ PHOTO EDITOR Facility:[facility] Start: 07-15-2022 End: 07-15-2022 Patient encounter procedure DEVONTE HAWK MD [facility] Start: 06-20-2022 End: 06-21-2022 ambulatory ABISAI HERNANDEZ CNP Facility:[facility] Start: 06-20-2022 End: 06-20-2022 Patient encounter procedure DEVONTE HAWK MD [facility] Start: 02-24-2022 End: 02-25-2022 ambulatory MS. MELVIN L CHELSEY PHOTO EDITOR Facility:[facility] Start: 02-24-2022 End: 02-24-2022 Patient encounter procedure MELVIN BARBOSA ANALYST COMPETITIVE INTELLIGENCE-PHOTO EDITOR [facility] Start: 02-13-2022 ambulatory ABISAI HERNANDEZ PHOTO EDITOR Fa cility:[facility] Start: 02-11-2022 End: 02-12-2022 ambulatory ABISAI HERNANDEZ PHOTO EDITOR Facility:[facility] Start: 02-11-2022 End: 02-11-2022 Patient encounter procedure CHAYITO BROOKS ANALYST COMPETITIVE INTELLIGENCE-VASCULAR SURGERY PHYSICIAN [facility] Start: 01-27-2022 End: 02-06-2022 Evaluation and management of inpatient ABISAI HERNANDEZ CNP Facility:[facility] Start: 01-27-2022 End: 02-06-2022 Evaluation and management of inpatient DR AMANDA CANI MD [facility] Start: 11-13-2021 ambulatory ABISAI HERNANDEZ PHOTO EDITOR Fa cility:[facility] Start: 11-13-2021 End: 12-08-2022 Pre-admission assessment DR CHAD SPENCER MD [facility] Procedures Date Procedure Procedure Detail [...] artery bypa ss grafts x [address] AMANDA CAIN MD Comment on above: using RANDALL and LSVG Start: 09-22-2016 End: 11-27-2016 Pulmonary Function Test - complete Ebony Espinoza PHOTO EDITOR Work Phone: Start: 09-22-2016 End: 11-27-2016 Pulmonary stress test/simple Ebony Espinoza CNP Work Phone: Start: 08-11-2016 End: 08-11-2016 Documentation of current medications Ebony Espinoza CNP Start: 08-11-2016 End: 08-11-2016 Smoking cessation education Ebony Espinoza CNP Start: 06-24-2016 End: 11-27-2016 BWA Ebony Espinoza PHOTO EDITOR Work Phone: Start: 06-24-2016 End: 11-27-2016 Follow Up Appt 3 months Ebony Yoseph arguelles PHOTO EDITOR Work Phone: Start: 03-14-2015 End: 06-23-2016 Complete [...] CABG x 3( Confirmed ) CHAYITO BROOKS APRN-[facility] History of coronary artery bypass grafting S/P CABG (coronary artery bypass graft) History of operative procedure on knee History of arthroscopic knee surgery Repair of elbow DR AMANDA CAIN MD Plan of Treatment Date Care Activity Detail Author Start: 04-05-2025 ambulatory Ambulatory Facility:[facility] Start: 01-18-2025 Patient referral [facility] Work Phone: Start: 12-14-2024 Patient referral [facility] Work Phone: Start: 11-01-2024 Patient referral [facility] Work Phone: Start: 2024 Prostate specific antigen measurement PSA SHARED DECISION MAKING [facility] [place] [facility] Start: 05-22-2024 COVID-19 VACCINE ( season) COVID-19 VACCINE ( season) [facility] Start: 05-22-2024 Influenza vaccination given INFLUENZA VACCINE (#1) [facility] Start: 2019 Zoster vaccine hzv live for subcutaneous use ZOSTER (SHINGLES) VACCINE (1 of 2) [facility] Start: 09-22-2016 End: 11-27-2016 Pulmonary Function Test - complete Pulmonary Function Test - complete [facility] Phone: Start: 09-22-2016 End: 11-27-2016 Pulmonary stress test/simple Pulmonary stress testing; simple (eg, 6-minute walk) [facility] Phone: Start: 08-13-2016 End: 08-13-2016 Physical Therapy General Physical Therapy [facility], [address] [place] [address], [facility] Phone: Start: 08-11-2016 End: 08-11-2016 Radex shoulder complete minimum 2 views X-Ray, Shoulder [facility] Phone: Start: 06-24-2016 End: 11-27-2016 BWA BWA [facility] Phone: Start: 06-24-2016 End: 11-27-2016 Follow Up Appt 3 months Follow Up Appt 3 months [facility] Phone: Start: 10-31-2015 End: 10-31-2015 [facility] Phone: Start: 10-31-2015 End: 10-31-2015 Follow Up Appt 3 months Follow Up Appt 3 months [facility] Phone: Start: 03-14-2015 End: 06-23-2016 Complete sleep workup (PSG,CPAP as indicated) & Follow up Complete sleep workup (PSG,CPAP as indicated) & Follow up [facility] Phone: Start: 03-14-2015 End: 06-23-2016 Follow Up Appt 3 months Follow Up Appt 3 months [facility] Phone: Start: 03-14-2015 End: 06-23-2016 Pulmonary Function Test - complete Pulmonary Function Test - complete [facility] Phone: Start: 2014 Screening for malignant neoplasm of colon [facility] Start: 2004 Fasting lipid profile LIPID SCREENING [facility] Start: 1987 ANNUAL WELLNESS VISIT ANNUAL WELLNESS VISIT [facility] Start: 1981 Depression screening using PHQ-9 (Patient Health Questionnaire 9) score DEPRESSION SCREENING [facility] Start: 1980 Administration of diphtheria + tetanus + acellular pertussis vaccine DTAP/TDAP/TD VACCINE (1 - Tdap) [facility] Comprehensive metabo lic 1999 panel - Serum or Plasma [facility] Hemoglobin A1c/Hemoglobin.total in Blood [facility] Lipid 1996 panel - S edwin or Plasma [facility] Magnesium measurement [facility] Patient Education SHOULDER%20PAIN [facility] Work Phone: Patient referral [facility] Work Phone: Immunizations Immunization Date Immunization Notes Care Provider Kristie [facility] 08-20-2023 influenza, injectabl e, quadrivalent, preservative free Dr. Gilson Hawk DO Work Phone: [facility] 07-30-2022 influenza, injectabl e, quadrivalent, preservative free Dr. Gilson Hawk DO Work Phone: [facility] 12-19-2021 Pneumococcal Vaccine PCV20 (Prevnar 20) Dr. Gilson Hawk DO Work Phone: [facility] 07-26-2021 pneumococcal conjuga te vaccine, [address] Gilson Hawk DO Work Phone: [facility] 07-24-2021 Seasonal, quadrivale nt, recombinant, injectable influenza vaccine, preservative free Dr. Gilson Hawk DO Work Phone: [facility] 02-20-2021 Sulaiman (Moderna) Dr. Gilson Hawk DO Work Phone: [facility] 01-25-2021 Sulaiman (Moderna) Dr. Gilson Hawk DO Work Phone: [facility] 07-11-2020 influenza, injectabl e, quadrivalent, preservative free Dr. Gilson Hawk DO Work Phone: [facility] 06-26-2019 influenza, injectabl e, quadrivalent, preservative free Dr. Gilson Hawk DO Work Phone: [facility] 06-29-2018 influenza, injectabl e, quadrivalent, preservative free Dr. Gilson Hawk DO Work Phone: [facility] 07-03-2017 influenza, seasonal, injectable, preservative free Dr. Gilson Hawk DO Work Phone: [facility] 07-14-2016 influenza, seasonal, injectable, preservative free Dr. Gilson Hawk DO Work Phone: [facility] 07-14-2016 pneumococcal polysaccharide vaccine, [address] Gilson Hawk DO Work Phone: [facility] 04-20-2014 tetanus toxoid, redu susie diphtheria toxoid, and acellular pertussis vaccine, adsorbed Dr. Gilson Hawk DO Work Phone: [facility] Payers Date Payer Category Payer Worker's Compensation [employer]AU DIS ABILITY [id number] 2024 Self-pay [id number] 2023 Medicaid [id number] 2021 Unknown [id number] 2021 Unknown [id number] 1970 Unknown [id number] 2.16.840.1.420115.3.579.2.6 27 1969 Unknown [id number] 2.16.840.1.183964.3.579.2.6 27 1969 Unknown [id number] 2.16.840.1.525373.3.579.2.6 27 1969 Unknown [id number] 2.16.840.1.879485.3.579.2.6 27 1969 Unknown [id number] 2.16.840.1.442037.3.579.2.6 27 1969 Unknown [id number] 2.16.840.1.419169.3.579.2.6 27 1969 Unknown [id number] 2.16.840.1.732850.3.579.2.6 27 1969 Unknown [id number] 2.16.840.1.295659.3.579.2.2 97 1969 Unknown [id number] 2.16.840.1.369847.3.579.2.6 51 1969 Unknown [id number] 2.16.840.1.034985.3.579.2.6 51 Unknown [facility] [id number] Unknown [id number] Unknown [id number] 2.16.840.1.076862.3.579.2.5 28 Unknown [id number] 2.16.840.1.452975.3.579.2.5 28 Unknown [id number] 2.16.840.1.773518.3.579.2.5 28 Unknown [id number] 2.16.840.1.177204.3.579.2.5 28 Unknown [id number] 2.16.840.1.899495.3.579.2.5 28 Unknown [id number] 2.16.840.1.337089.3.579.2.4 62 Unknown [id number] 2.16.840.1.948892.3.579.2.4 62 Unknown [id number] 2.16.840.1.469321.3.579.2.4 62 Unknown [id number] 2.16.840.1.333783.3.579.2.4 62 Unknown [id number] 2.16.840.1.639544.3.579.2.4 62 Unknown [id number] 2.16.840.1.498931.3.579.2.4 62 Unknown [id number] 2.16.840.1.498022.3.579.2.4 62 Unknown [id number] 2.16.840.1.989405.3.579.2.4 62 Unknown [id number] 2.16.840.1.678595.3.579.2.4 62 Unknown [id number] 2.16.840.1.516862.3.579.2.4 62 Unknown [id number] 2.16.840.1.289572.3.579.2.4 62 Unknown [id number] 2.16.840.1.312501.3.579.2.4 62 Unknown [id number] 2.16.840.1.622994.3.579.2.4 62 Unknown [id number] 2.16.840.1.204387.3.579.2.4 62 Unknown [id number] 2.16.840.1.973030.3.579.2.4 62 Unknown [id number] 2.16.840.1.099641.3.579.2.4 62 Unknown [id number] 2.16.840.1.809215.3.579.2.4 62 Unknown [id number] 2.16.840.1.253783.3.579.2.4 62 Unknown [id number] 2.16.840.1.455149.3.579.2.4 62 Unknown [id number] 2.16.840.1.834149.3.579.2.4 62 Unknown [id number] 2.16.840.1.280420.3.579.2.4 62 Unknown [id number] 2.16.840.1.051114.3.579.2.4 62 Unknown [id number] 2.16.840.1.307933.3.579.2.4 62 Unknown [id number] 2.16.840.1.340665.3.579.2.4 62 Unknown [id number] 2.16.840.1.009331.3.579.2.4 62 Unknown [id number] 2.16.840.1.107992.3.579.2.4 62 Unknown [id number] 2.16.840.1.834960.3.579.2.4 62 Unknown [id number] 2.16.840.1.552596.3.579.2.4 62 Unknown [id number] 2.16.840.1.182240.3.579.2.4 62 Unknown [id number] 2.16.840.1.795823.3.579.2.4 62 Unknown [id number] 2.16.840.1.189933.3.579.2.4 62 Unknown [id number] 2.16.840.1.739203.3.579.2.4 62 Unknown [id number] 2.16.840.1.498204.3.579.2.4 62 Unknown [id number] 2.16.840.1.264749.3.579.2.4 62 Social History Date Type Detail Facility Start: 12-21-2020 End: 06-20-2022 Tobacco smoking status Heavy tobacco smoker (finding) [facility] Comment on above: currently smoking 1 PPD, started Chantix a few days ago hoping for it to work Sex Assigned At Sex [facility] Start: 08-07-2022 Tobacco smoking stat us KYIS Unknown if ever smoked [facility] Start: 1970 Sex Assigned At Male [facility] Start: 1970 Sex assigned at Not on file [facility] [facility] Gender identity Not on file [facility] Start: 02-24-2025 End: 03-22-2025 Tobacco smoking status NHIS Smokes tobacco daily (finding) [facility] Medical Equipment Procedure Code Equipment Code Equipment Origin al Text Equipment Identifier Dates See Instructions , Testing blood glucose TID.1 box, # 1 EA, 1 Refill(s), Pharmacy: [facility], Diabetes mellitus Hgb A1c 10.6%, 185, cm, 01/27/22 8:29:00 EDT, Height, 105.7, kg, 02/06/22 4:47:00 EDT, Dosing Weight Start: 02-06-2022 See Instructions , Testing blood glucose TID.1 box, # 1 EA, 1 Refill(s), Pharmacy: [facility], Diabetes mellitus Hgb A1c 10.6%, 185, cm, 01/27/22 8:29:00 EDT, Height, 105.7, kg, 02/06/22 4:47:00 EDT, Dosing Weight Start: 02-06-2022 See Instructions , Testing blood glucose TID.1 box, # 1 EA, 1 Refill(s), Pharmacy: [facility], Diabetes mellitus Hgb A1c 10.6%, 185, cm, 01/27/22 8:29:00 EDT, Height, 105.7, kg, 02/06/22 4:47:00 EDT, Dosing Weight Start: 02-06-2022 See Instructions , Testing blood glucose TID.1 box, # 1 EA, 1 Refill(s), Pharmacy: [facility], Diabetes mellitus Hgb A1c 10.6%, 185, cm, 01/27/22 8:29:00 EDT, Height, 105.7, kg, 02/06/22 4:47:00 EDT, Dosing Weight Start: 02-06-2022 See Instructions , Testing blood glucose TID.1 box, # 1 EA, 1 Refill(s), Pharmacy: [facility], Diabetes mellitus Hgb A1c 10.6%, 185, cm, 01/27/22 8:29:00 EDT, Height, 105.7, kg, 02/06/22 4:47:00 EDT, Dosing Weight Start: 02-06-2022 See Instructions , Testing blood glucose TID.1 box, # 1 EA, 1 Refill(s), Pharmacy: [facility], Diabetes mellitus Hgb A1c 10.6%, 185, cm, 01/27/22 8:29:00 EDT, Height, 105.7, kg, 02/06/22 4:47:00 EDT, Dosing Weight Start: 02-06-2022 Pen Needle, Diab etic (Comfort Ez Pen [place]) 31 gauge x 5/16 needle Start: 08-02-2024 Pen Needle, Diab etic (Comfort Ez Pen [place]) 31 gauge x 5/16 needle Start: 08-02-2024 Pen Needle, Diab etic (Comfort Ez Pen [place]) 31 gauge x 5/16 needle Start: 08-02-2024 Pen Needle, Diab etic (Comfort Ez Pen [place]) 31 gauge x 5/16 needle Start: 08-02-2024 Pen Needle, Diab etic (Comfort Ez Pen [place]) 31 gauge x 5/16 needle Start: 08-02-2024 Pen Needle, Diab etic (Comfort Ez Pen [place]) 31 gauge x 5/16 needle Start: 08-02-2024 Functional Status Date Assessment Result Facility 02-06-2022 [facility] 02-06-2022 Functional Status [facility] 02-06-2022 [facility] 02-06-2022 Functional Status [facility] 02-06-2022 Functional Status [facility] [...] Date & Type Note Facility 12-20-2024 Note [place] [id number] HEALTH INFORMATION MANAGEMENT OPERATIVE REPORT : [id number] Signed Patient: YENNY GARCIA Acct:[id number] MRUN: [id number] : 1970 Sex: M Loc: SDS ADM Date: Room/Bed: DISC Date: 12/13/24 _ DATE: 12/13/2024 PREOPERATIVE DIAGNOSIS: Cataract, right eye. POSTOPERATIVE DIAGNOSIS: Cataract, right eye. OPERATION: Phacoemulsification of the right eye, placement of posterior chamber [place] intraocular lens. ANESTHESIA: General. DIRECTOR OF RESOURCE DEVELOPMENT: None. COMPLICATIONS: None. LOSS OF BLOOD: None. [...] He tolerated the procedure well. No complications. /[facility] TID: [id number] Dictated By: ANANYA HAYS MD Signed By: ANANYA HAYS MD < > Co Signed By: Dictated Date/Time: 12/13/24 1428 Transcribed Date/Time: 12/13/[address]: Signed Date/Time: 12/20/24 0838 Co Signed Date/Time: CC: ANANYA HAYS MD [facility] 12-20-2024 [place] [address] HEALTH INFORMATION MANAGEMENT DISCHARGE SUMMARY : [id number] Signed Patient: YENNY GARCIA Acct:[id number] MRUN: [id number] : 1970 Sex: M Loc: SDS ADM [...] in 24 hours for followup. TM/JIMBO TID: [id number] Dictated By: ANANYA HAYS MD Signed By: ANANYA HAYS MD < > Co Signed By: Dictated Date/Time: 12/13/24 1429 Transcribed Date/Time: 12/13/[address]: Signed Date/Time: 12/20/24 0837 Co Signed Date/Time: CC: [facility] 12-12-2024 Evaluation note Diagnosis Onset Date [...] both sides acute March 02, 2025 10:30am [facility] Work Phone: 1(723) 423-410203-24-2025 Evaluation note* Diagnosis Onset Date Resolution Status [...] diabetes mellitus chronic March 21, 2025 11:20am [facility] Work Phone: 1(962) 389-261203-24-2025 Evaluation note* Diagnosis Onset Date Resolution Status [...] diabetes mellitus chronic March 21, 2025 11:20am [facility] Work Phone: 1(183) 760-619103-24-2025 Evaluation note* Diagnosis Onset Date Resolution Status [...] 2 diabetes mellitus March 23, 2025 11:42am [facility] Work Phone: 1(173) 431-446302-10-2025 Evaluation note* Diagnosis Onset Date Resolution Status [...] disease) chronic February 22, 2025 1 0:20am [facility] Work Phone: 1(584) 726-114507-30-2024 [place] [address] HEALTH INFORMATION MANAGEMENT OPERATIVE REPORT : [id number] Signed Patient: YENNY GARCIA Acct:[id number] MRUN: [id number] : 1970 Sex: M Loc: SDS ADM Date: Room/Bed: DISC Date: 04/12/24 DATE: 04/12/2024 PREOPERATIVE DIAGNOSIS: Cataract, left eye. PREOPERATIVE DIAGNOSIS: Cataract, left eye. OPERATION: Phacoemulsification, left eye, placement of posterior chamber intraocular lens. ANESTHESIA: MAC. DIRECTOR OF RESOURCE DEVELOPMENT: None. COMPLICATIONS: None. LOSS OF BLOOD: None. [...] the procedure well. No complications. TM/TAR TID: [id number] Dictated By: ANANYA HAYS MD Signed By: ANANAY HAYS MD < > Co Signed By: Dictated Date/Time: 04/12/24 1247 Transcribed Date/Time: 04/12/[address]: Signed Date/Time: 04/19/24 0844 Co Signed Date/Time: CC: ANANYA HAYS [facility]07-30-2024 [place] [address] HEALTH INFORMATION MANAGEMENT DISCHARGE SUMMARY : [id number] Signed Patient: YENNY GARCIA Acct:[id number] MRUN: [id number] : 1970 Sex: M Loc: SDS ADM [...] in 24 hours for followup. MARCO/SHAUN TID: [id number] Dictated By: ANANYA HAYS MD Signed By: ANANYA HAYS MD < > Co Signed By: Dictated Date/Time: 04/12/24 1248 Transcribed Date/Time: 04/12/[address]: Signed Date/Time: 04/19/24 0844 Co Signed Date/Time: CC:[facility]05-24-2022 Evaluation + Plan note Future Scheduled [...] Chest 2 Views (PA & Lateral) 10/21/22 [facility] 05-19-2022 Hospital Discharge instructions Patient Education 02/06/2022 [...] diet and you may take a mild khme-uii-nuwkeif laxative like Milk of Magnesia . CARDIAC [...] and if you want to attend, pleasecall [phone] ([phone]). Call the Surgeon If your incisions are [...] in your calf. Call the Heart Doctor (Certified Composites Technician) If your heart beats are irregular or [...] these methods. Where to find more information [place] [employer]: www.lung.org [place] [employer]: www.cancer.org Summary Smoking cigarettes is [...] 10/15/2005 Document Revised: 12/09/2018 Document Reviewed: 09/11/2017 [employer] Patient Education 2020 [employer]. 02/06/2022 09:34:16 Blood Glucose Monitoring, Adult Blood [...] 09/09/2004 Document Revised: 07/01/2019 Document Reviewed: 02/16/2017 [employer] Patient Education 2020 [employer]. 02/06/2022 09:34:15 Carbohydrate Counting for Diabetes Mellitus, [...] different for every person. A diet and dairy equipment specialist (registered dietitian) can help you make a [...] 15 g of carbohydrates: hamburger bun or Tamazight muffin. oz (15 mL) syrup. oz (14 [...] 1.Identify the foods that contain carbohydrates: Rice. [place]. Milk. Strawberries. 2.Calculate how many servings you [...] you manage your diabetes. A diet and dairy equipment specialist (registered dietitian) can help you make a meal plan and calculate how many carbohydrates you should have at each meal and snack. This information is not intended to replace advice given to you by your health care provider. Make sure you discuss any questions you have with your health care provider. Document Released: 09/07/2006 Document Revised: 04/01/2018 Document Reviewed: 02/18/2017 [employer] Patient Education 2020 [employer] 02/06/2022 09:34:08 Insulin Injection Instructions, Using [...] and water are not available, use hand cattle rancher. 2.Before you give yourself an insulin injection, [...] plastic cover from the needle. 11.Follow the translator/interpreter's instructions to prime the insulin pen with [...] have questions? Where to find more information [place] [employer] Association (ADA): www.diabetes.org [place] [employer] of Diabetes Educators (AADE) Patient Resources: [...] 10/10/2016 Document Revised: 09/27/2018 Document Reviewed: 10/10/2016 [employer] Patient Education 2020 [employer]. 02/04/2022 09:01:22 Smoking Tobacco Information, Adult Smoking [...] local community. Calling the smokefree.gov counselor helpline: 9-759-Ijiz-Now ( ) Where to find more information You may find more information about quitting smoking from: HelpGuide.org: www.helpguide.org Smokefree.gov: smokefree.gov [place] [employer]: www.lung.org Contact a health care [...] 09/22/2017 Document Revised: 10/27/2018 Document Reviewed: 09/22/2017 [employer] Patient Education 2020 [employer] Follow Up Care 12/26/2021 14:22:08 With:[facility] Address: [address] [place] [address] [phone] When: Unknown Comments:[facility] will provide your home oxygen and equipment. If you have questions related to home oxygen, please call [phone]. With:MARVIN WHEELER Address: [address] [place] [phone] Business (1) When: Unknown Comments:Call for appointment after discharge With:MELVIN BARBOSA Address: [address] [facility] [address] [facility] [place] [address]- When:02/11/2022 09:19:00 Comments:Labs and chest x-ray with office visit With:ABISAI HERNANDEZ Address: [address] [place] [address] [address] [place] [address]- [phone] Business (1) When:02/11/2022 14:30:00 With:DIPESH OLIVAS MD Address: [address] [place] [phone] When:02/20/2022 14:15:00 Comments:THIS APPOINTMENT WILL BE WITH JAIRO ALMODOVAR With:LATASHA MORGAN MD Address: [address] [place] [address] [facility] [place] [address]- When:02/25/2022 13:00:00 Comments:THE APPOINTMENT SCHEDULED ON 01/29 HAS BEEN CANCELLED. With:Post home RN DC follow up visit scheduled for visit # 1 02/10 between 12p-4p Visit # 2 scheduled for02/13 between 12p-4p Address:Unknown When: Unknown With:Gilda Sarkar, Nurse Senior Inspector will call you and/or your family [facility] Office hours: 8am-4:30pm Thursday-Thursday. . Email: [email or web address] Address:Unknown When: Unknown With:[facility] Address: [address] [facility] [place] [address]- When: Unknown Comments:The Cardiac Rehab department will call you in 6 weeks to schedule you for phase 2. We left you a brochure with information about cardiac rehab. If you have any questions please call [phone]. [facility] 05-09-2022 Evaluation + Plan noteExtracted from: Title:History [...] Date:02/11/2022 02:30:00 PM Scheduled Provider:MELVIN BARBOSA Location:[facility] Appointment Type:CTS OV Post Op Appointment Date:02/25/2022 01:00:00 PM Scheduled Provider: Location:[facility] Appointment Type:CV OV Hospital Follow Up Future Scheduled Tests Radiology* CT Coronary Angiography w+w/o Contrast 02/21/21 [facility] evaluation + Plan note Future Appointments Appointment Date:02/25/2022 01:00:00 PM Scheduled Provider: Location:[employer] [facility] Appointment Type:CV OV Hospital Follow Up Appointment Date:02/25/2022 01:00:00 PM Scheduled Provider:MELVIN BARBOSA Location:[facility] Appointment Type:CTS OV Post Op Follow Up Future Scheduled Tests Laboratory* Basic Metabolic Panel 02/11/22 Radiology* XR Chest 2 Views (PA & Lateral) 02/25/22 * CT Coronary Angiography w+w/o Contrast 02/21/21 [facility] evaluation + Plan note Future Appointments Appointment Date:02/25/2022 01:00:00 PM Scheduled Provider: Location:[employer] [facility] Appointment Type:CV OV Hospital Follow Up Appointment Date:03/10/2022 01:30:00 PM Scheduled Provider:MELVIN BARBOSA Location:[facility] Appointment Type:CTS OV Post Op Follow Up Future Scheduled Tests Laboratory* Basic Metabolic Panel 02/11/22 [facility] evaluation + Plan note Future Appointments Appointment Date:07/15/2022 04:00:00 PM Scheduled Provider:DEVONTE HAWK MD Location:[facility] Appointment Type:CTS OV Appointment Date:07/24/2022 03:45:00 PM Scheduled Provider: Location:[facility] Appointment Type:CV OV Future Scheduled Tests Laboratory* Basic Metabolic Panel 02/11/22 * Hepatic Function Panel 06/06/22 * Hepatic Function Panel 02/25/22 * Hepatic Function Panel 04/24/22 * CPK 06/06/22 * Lipid Profile 06/06/22 * Lipid Profile 02/25/22 * Lipid Profile 04/24/22 Radiology* XR Chest 2 Views (PA & Lateral) 04/07/22 * XR Chest 2 Views (PA & Lateral) 07/15/22 [facility] Evaluation + Plan note Future Appointments Appointment Date:07/24/2022 03:45:00 PM Scheduled Provider: Location:[facility] Appointment Type:CV OV Future Scheduled Tests Laboratory* Basic Metabolic Panel 02/11/22 * Hepatic Function Panel 06/06/22 * Hepatic Function Panel 02/25/22 * Hepatic Function Panel 04/24/22 * CPK 06/06/22 * Lipid Profile 06/06/22 * Lipid Profile 02/25/22 * Lipid Profile 04/24/22 Radiology* XR Chest 2 Views (PA & Lateral) 04/07/22 [facility] Evaluation noteNo assessment information available [facility] Work Phone: Evaluation note* Diagnosis Chronic obstructive pulmonary disease, unspecified COPD type (HCC) [facility] Narrative No data available for this section [facility] Hospital Discharge instructions No data available for this section [facility] Progress note No data available for this section [facility] Reason for visit Narrative* Procedure Authorization (Routine) - Closed Specialty Diagnoses / Procedures Referred By Contac t Referred To Contact Heart and Vascular Diagnostics Diagnoses Chronic obstructive pulmonary disease, unspecified COPD type (HCC) Procedures Echocardiogram Complete with Contrast Echocardiogram complete (M-Mode/2D) Chris Gasca [address] [place] [address] Phone: tel: [facility] [address] [place] [phone] Phone: tel: Referral ID Status Reason Start Date Expiration Date Visits Re quested Visits Authorized [id number] Closed 10/12/2024 10/12/2024 1 1 [facility] Summary Purpose Family History No Family [...] 1:2 3pm GERD (gastroesophageal reflux disease) M [facility] 2024 1:23pm High triglycerides December 12, 2024 [...] section and content) DATE CREATED AUTHOR 01/03/2021 [facility] DATE CREATED AUTHOR AUTHOR'S ORGANIZ ATION 07/19/2022 [facility] ([place]) DATE CREATED AUTHOR AUTHOR'S ORGANIZ ATION 10/14/2024 [facility] DATE CREATED AUTHOR AUTHOR'S ORGANIZ ATION 01/12/2025 [facility] DATE CREATED AUTHOR AUTHOR'S ORGANIZ ATION 03/31/2025 [facility] DATE CREATED AUTHOR AUTHOR'S ORGANIZ ATION 03/31/2025 [facility] Care Team (unrecognized sect ion and content) Team Status: Active Member Role Status Dates Dr. Gem Albarran MD Family Provider Active Abisai Hernandez POT RELINER, POT RELINER-C Primary Care Provider Active Team Status: Inactive Member Role Status Dates Abisai Hernandez POT RELINER, POT RELINER-C Primary Care Provider Active Ed Physician Provider [...] 18, 2025 End: January 18, 2025 Dr. Sanchze Kaminski MD Attending Provider Active S tart: [...] Member Role: Primary Care Physician Address: Address: [address] [place] [address] Care Team Related Persons Name: YULI GARCIA Address: [address] [phone] Care Team Personnel Name: ABISAI HERNANDEZ APRN-PHOTO EDITOR Member Role: Primary Care Physician Address: Address: [address] [place] [address] Care Team Related Persons Name: YULI GARCIA Address: [address] [phone] Goals (unrecognized section and content) Goals may [...] BE BASED ON THE PRIMARY CLINICAL RECORDS. [employer] [facility]. provides no warranty or guarantee of the accuracy or completeness of information in this document.
[2025-04-05] MEDS: Lactated Ringers 1,000 ML 15 ML IV (06:39)
--- NOTE | 2025-04-05 06:50 | PRE.ANES_ITS ---
ASA Classification* ASA Classification ASA Classification: 3 Assessment & Plan Anesthesia* Anesthesia Assessment Anesthesia Assessment: Discussed sedation and/or anesthesia options, risks, benefits, and alternatives with patient/parents/legal guardian/POA. Questions invited. The patient/parents/legal guardian/POA seems to understand and agrees to proceed with anesthesia plan. Reviewed the physical assessment, medical history, allergy history and patient home medications list prior to surgery/procedure/anesthetic and documented any changes. Performed airway and anesthesia risk assessments. Procedural Plan Add'l anesthesia plan details: Patient reports his grandfather during tonsil surgery on color if it was related to anesthetic complication. Patient has had a CABG in the past and reports that he had no issues during the surgery or afterwards. Patient has extremely poor dentition we discussed the risk of injury to teeth gums or lips. We also discussed that we will avoid any MH triggering medications. Anesthesia Type Anesthesia Type: MAC History Source History Obtained from:: Patient and Chart Anesthesia Focused Assessment* Temperature: 97.2 F Pulse Rate: 83 Blood Pressure: 125/84 Respiratory Rate: 18 Pulse Ox: 93 Oxygen Delivery Method: Room Air Airway Assessment Mouth opens: >3 cm Mallampati Score: II Teeth Condition: Chipped/Broken, Loose and Missing Comment: extremely poor dentition, some loose teeth as well Labs Anesthesia Preop lab: CBC WBC 8.3 K/mm3 (4.4-11.0) 08/31/24 10:54 08/31/24 RBC 5.44 M/mm3 (4.6-6.2) 08/31/24 10:54 08/31/24 Hgb 16.1 g/dL (13.0-16.5) 08/31/24 10:54 08/31/24 Hct 47.8 % (40-54) 08/31/24 10:54 08/31/24 Plt Count 303 K/mm3 (150-450) 08/31/24 10:54 08/31/24 CHEMISTRY Potassium 4.1 mmol/L (3.3-5.1) 03/21/25 12:11 03/21/25 Sodium 136 mmol/L (133-145) 03/21/25 12:11 03/21/25 Magnesium 2.0 mg/dL (1.5-2.2) 03/21/25 12:11 03/21/25 BUN 16 mg/dL (4-19) 03/21/25 12:11 03/21/25 Creatinine 0.93 mg/dL (0.70-1.20) 03/21/25 12:11 03/21/25 Glucose 371 mg/dL (70-99) H 03/21/25 12:11 03/21/25 TSH 1.340 uIU/mL (0.358-3.740) 07/20/24 10:06/23 COAG Pre-Assessment Diagnosis/Proposed Procedure Planned Operative Procedure(s): RIGHT ENODOSCOPIC CARPAL TUNNEL RELEASE Anesthesia History Anesthesia History - media relations coordinator: Anesthesia History - media relations coordinator Hx Hospitalization No 03/22/25 15:03 Any Problems With Anesthesia No 03/22/25 15:03 Cholinesterase deficiency No 03/22/25 15:03 You/Your Family Experience No 03/22/25 15:03 fever (hyperthermia) with Relationship Recent Exposure to Contagious No 04/05/25 06:28 Disease Does patient have nerve No 03/22/25 15:03 stimulator Patient instructed to have device shut off --Does patient have Pacemaker No 04/05/25 06:28 or ICD? When Was Last Pacemaker Check QUESTION #4 FULL TEXT: You/Your Family Experience fever (hyperthermia) with Anesthesia Any additional information?: Yes Any Problems With Anesthesia: No Cholinesterase deficiency: No You/your family experience fever (hyperthermia) with anesthesia: Yes (unclear if it was MH, patient reports his grandfather during surgery) Relationship: grandfather Last Oral Intake Last Oral intake: Last Oral Intake NPO since 22:00 04/05/25 06:28 Meds taken in AM with sips of Yes 04/05/25 06:28 water? Meds patient instructed to take am of surgery PONV PONV - media relations coordinator: PONV - media relations coordinator Female No 03/22/25 15:03 HX of Motion Sickness No 03/22/25 15:03 HX of N/V After Surgery No 03/22/25 15:03 Non-Smoker No 03/22/25 15:03 Duration of Surgery greater No 03/22/25 15:03 than 60 minutes Number of Risk Factors PONV Score Height & Weight Height & Weight: Anesthesia: Height & Weight Height 6 ft 1 in 04/05/25 06:28 Weight: 117 kg 04/05/25 06:28 Body Mass Index (BMI) 34.0 04/05/25 06:28 Respiratory Assessment Respiratory Assessment - media relations coordinator: Respiratory Tract Infection Hx - media relations coordinator Hx Respiratory Tract Infection No 03/22/25 15:03 STOP Sleep Apnea STOP Sleep Apnea - media relations coordinator: STOP Sleep Apnea - media relations coordinator Hx Hypertension Yes: CONTROLLED WITH MEDS 03/22/25 15:03 Hx Sleep Apnea Yes 03/22/25 15:03 CPAP Yes 03/22/25 15:03 BIPAP No 03/22/25 15:03 Do you snore loudly (louder than talking or can be heard Do you often feel tired/ fatigued/ sleepy during daytime? Has anyone observed you stop breathing during sleep? STOP Results Positive 03/22/25 15:03 QUESTION #5 FULL TEXT : Do you snore loudly (louder than talking or can be heard through closed doors)? 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 Specify any problems Hx of Preganancy in last 3 N/A 03/22/25 15:03 Months Nurse Filling Out Transfusion [id number] 03/22/25 15:03 & Questions: Date: 03/22/25 03/22/25 15:03 Time: 15:09 03/22/25 15:03 Patient unable to answer at this time (ie. confused, unrespo /Reproduction History /Reproductive History - media relations coordinator: /Reproductive Hx- media relations coordinator Hx Now Gestational Age (in weeks): EDC: Hx Hx Para Hx Section SAB Active Medications Active Medications: Current Medications Generic Name Dose Route Start Last Admin Trade Name Freq PRN Reason Stop Dose Admin Lactated Ringer's 1,000 mls @ 15 mls/hr 04/05/25 06:15 04/05/25 06:39 IV 15 mls/hr .Q48H CHE Administration Cefazolin Sodium 2 gm/ Sodium 110 mls @ 200 mls/hr 04/05/25 07:00 Chloride IV 04/05/25 07:32 INTRAOP ONE PFSH Medical History Depression Anxiety Restless legs Syncope Gastric reflux CPAP (continuous positive airway pressure) dependence Sleep apnea Smoker On home oxygen therapy Shortness of breath on exertion Chronic cough Leg cramps History of stress test H/O transesophageal echocardiography (DRAKE) for monitoring History of echocardiogram Cardiology follow-up encounter Arteriosclerotic heart disease Obesity History of left tennis elbow Tobacco abuse Type 2 diabetes mellitus Dyslipidemia Acute anxiety LOUISE (obstructive sleep apnea) Nocturnal hypoxemia Polyneuropathy Hypertension Environmental and seasonal allergies Uncontrolled persistent asthma Chest pain, atypical Hyperglycemia Arthralgia of acromioclavicular joint Chronic sinusitis Non-compliance Home Medications ?Medication ?Instructions ?Recorded ?Last Taken ?Type fluoxetine 40 mg capsule 40 mg PO DAILY 05/13/21 Unkn own History epinephrine 0.3 mg/0.3 mL 0.3 mg IM Q5-15M PRN anaphyl axis 05/14/21 Unknown History injection syringe nitroglycerin 0.4 mg sublingual 0.4 mg buccal Q5-15M P RN chest pain 01/08/22 Unknown History tablet budesonide-formoterol HFA 160 2 puff inhalation BID #3 ea 05/19/24 Unknown Rx mcg-4.5 mcg/actuation aerosol inhaler (Symbicort) cetirizine 10 mg tablet 10 mg PO DAILY #90 tabs 04/22 06/14 Unknown Rx fluticasone propionate 50 1 spray intranasal BID #16 g hemalatha 05/19/24 Unknown Rx mcg/actuation nasal spray,suspension (Flonase Allergy Relief) tiotropium bromide 2.5 2 puff inhalation QDAY #3 ea 05/19/24 Unknown Rx mcg/actuation mist for inhalation (Spiriva Respimat) spacer #1 ea 07/21/24 Unknown Rx Pulse ox meter #1 ea 07/26/24 Unknown Rx blood pressure kit-extra large #1 ea 07/26/24 Unknown Rx pen needle, diabetic 31 gauge x #100 ea 08/02/24 Unkno wn Rx 02/03 (Comfort EZ Pen [place]) guaifenesin 1,200 mg tablet, 1,200 mg PO Q12H PRN john estion 08/30/24 Unknown History extended release 12 hr lidocaine 4 % topical patch 2 patch topical QDAY PRN p ain #30 08/30/24 Unknown Rx (Salonpas (lidocaine)) ea magnesium oxide 400 mg (241.3 mg 400 mg PO QHS #30 tab s 08/30/24 Unknown Rx magnesium) tablet vitamin B complex 1 cap PO QDAY #30 caps 09/05 Unknown Rx montelukast 10 mg tablet 10 mg PO QPM #90 tabs Unknown Rx atorvastatin 20 mg tablet 20 mg PO QPM #90 tabs Unknown Rx empagliflozin 10 mg tablet 10 mg PO DAILY #90 tabs 03/31/25 Rx (Jardiance) lisinopril 20 mg tablet 20 mg PO DAILY #90 tabs 09/22 04/14 Unknown Rx metoprolol succinate 25 mg 25 mg PO QDAY #90 tabs 09/22 04/14 Unknown Rx tablet,extended release 24 hr insulin aspart U-100 100 unit/mL 25 unit (0.25 mL) sub cut TID #22.5 10/31/24 Unknown Rx (3 mL) subcutaneous pen (Novolog mL FlexPen U-100 Insulin aspart) metformin 1,000 mg tablet 1,000 mg PO BID #180 tabs 04/05/25 04:15 Rx albuterol 90 mcg-budesonide 80 2 inh inhalation TID MN N shortness 11/01/24 04/05/25 04:15 Rx mcg/actuation HFA aerosol inhaler of breath #10.7 gram s (Airsupra) naproxen 500 mg tablet 500 mg PO BID #60 tabs 11/01 Unknown Rx handicap placard #1 ea 11/30/24 Unknown Rx blood-glucose sensor (FreeStyle #2 ea 12/12/24 Unknown Rx Jt 3 Plus Sensor device) promethazine-DM 6.25 mg-15 mg/5 mL 5 ml PO Q4-6H PRN c ough #473 mL 01/03/25 Unknown Rx oral syrup pregabalin 200 mg capsule (Lyrica) 200 mg PO TID #270 caps 02/01/25 04/05/25 04 :15 Rx oxymetazoline 0.05 % nasal spray 3 spray intranasal Q1 2H PRN nasal 02/22/25 Unknown History (Afrin (oxymetazoline)) congestion pantoprazole 40 mg tablet,delayed 40 mg PO QDAY #30 ta bs 02/22/25 Unknown Rx release tizanidine 4 mg capsule 4 mg PO Q8H PRN muscle spast icity 02/22/25 Unknown Rx #60 caps tirzepatide 2.5 mg/0.5 mL 2.5 mg (0.5 mL) subcut QWEEK #2 mL 03/02/25 03/29/25 Rx subcutaneous pen injector (Mounjaro) ipratropium 0.5 mg-albuterol 3 mg 3 ml inhalation Q4H PRN PRN SOB 03/21/25 Unknown Rx (2.5 mg base)/3 mL nebulization &/OR WHEEZING #180 mL soln nicotine (polacrilex) 4 mg buccal 4 mg buccal Q8H PRN nicotine 03/21/25 Unknown Rx lozenge cravings #72 ea insulin glargine 100 unit/mL (3 44 unit subcut DAILY 0 04/05/25 04/04/25 History mL) subcutaneous pen (Lantus Solostar U-100 Insulin) Allergy/AdvReac Type Severity Reaction Status Date / Time bee pollen AdvReac throat Verified 04/05/25 06:24 swelling Family History Mother Cancer Surgical History History of cardiac catheterization History of cataract surgery History of open heart surgery S/P CABG (coronary artery bypass graft) (01/31/22) History of arthroscopic knee surgery Social History adopted: No household members: spouse housing: house current occupational status: unemployed Smoking Status: Current every day smoker tobacco type: cigarettes Tobacco: How many years used: 34 quit status: considering quitting alcohol intake: former details: has not drank alcohol in 4 or 5 years substance use type: does not use diet: diabetic caffeine: Yes (On avg 1 cup coffee daily and a sugar free soda) Type: carbonated beverages and coffee eating out: rarely or never what type of physical activity do you participate in: walking frequency: daily duration: < 15 minutes/day seatbelt use: always do you feel safe at home: Yes Review of Systems (Anesthesia) ROS Narrative System reviewed and no additional complaints, except as documented. Physical Exam Const alert and oriented x3 General Appearance: anxious HEENT Teeth and Gingiva: poor dentition Resp normal respiratory effort Resp Narrative: some wheezing. patient reports he uses up to 3L of home O2 when he feels SOB
--- NOTE | 2025-04-05 06:50 | PRE.ANES_ITS ---
ASA Classification* ASA Classification ASA Classification: 3 Assessment & Plan Anesthesia* Anesthesia Assessment Anesthesia Assessment: Discussed sedation and/or anesthesia options, risks, benefits, and alternatives with patient/parents/legal guardian/POA. Questions invited. The patient/parents/legal guardian/POA seems to understand and agrees to proceed with anesthesia plan. Reviewed the physical assessment, medical history, allergy history and patient home medications list prior to surgery/procedure/anesthetic and documented any changes. Performed airway and anesthesia risk assessments. Procedural Plan Add'l anesthesia plan details: Patient reports his grandfather during tonsil surgery on color if it was related to anesthetic complication. Patient has had a CABG in the past and reports that he had no issues during the surgery or afterwards. Patient has extremely poor dentition we discussed the risk of injury to teeth gums or lips. We also discussed that we will avoid any MH triggering medications. Anesthesia Type Anesthesia Type: MAC History Source History Obtained from:: Patient and Chart Anesthesia Focused Assessment* Temperature: 97.2 F Pulse Rate: 83 Blood Pressure: 125/84 Respiratory Rate: 18 Pulse Ox: 93 Oxygen Delivery Method: Room Air Airway Assessment Mouth opens: >3 cm Mallampati Score: II Teeth Condition: Chipped/Broken, Loose and Missing Comment: extremely poor dentition, some loose teeth as well Labs Anesthesia Preop lab: CBC WBC 8.3 K/mm3 (4.4-11.0) 08/31/24 10:54 08/31/24 RBC 5.44 M/mm3 (4.6-6.2) 08/31/24 10:54 08/31/24 Hgb 16.1 g/dL (13.0-16.5) 08/31/24 10:54 08/31/24 Hct 47.8 % (40-54) 08/31/24 10:54 08/31/24 Plt Count 303 K/mm3 (150-450) 08/31/24 10:54 08/31/24 CHEMISTRY Potassium 4.1 mmol/L (3.3-5.1) 03/21/25 12:11 03/21/25 Sodium 136 mmol/L (133-145) 03/21/25 12:11 03/21/25 Magnesium 2.0 mg/dL (1.5-2.2) 03/21/25 12:11 03/21/25 BUN 16 mg/dL (4-19) 03/21/25 12:11 03/21/25 Creatinine 0.93 mg/dL (0.70-1.20) 03/21/25 12:11 03/21/25 Glucose 371 mg/dL (70-99) H 03/21/25 12:11 03/21/25 TSH 1.340 uIU/mL (0.358-3.740) 07/20/24 10:06/23 COAG Pre-Assessment Diagnosis/Proposed Procedure Planned Operative Procedure(s): RIGHT ENODOSCOPIC CARPAL TUNNEL RELEASE Anesthesia History Anesthesia History - corporate legal intern: Anesthesia History - corporate legal intern Hx Hospitalization No 03/22/25 15:03 Any Problems With Anesthesia No 03/22/25 15:03 Cholinesterase deficiency No 03/22/25 15:03 You/Your Family Experience No 03/22/25 15:03 fever (hyperthermia) with Relationship Recent Exposure to Contagious No 04/05/25 06:28 Disease Does patient have nerve No 03/22/25 15:03 stimulator Patient instructed to have device shut off --Does patient have Pacemaker No 04/05/25 06:28 or ICD? When Was Last Pacemaker Check QUESTION #4 FULL TEXT: You/Your Family Experience fever (hyperthermia) with Anesthesia Any additional information?: Yes Any Problems With Anesthesia: No Cholinesterase deficiency: No You/your family experience fever (hyperthermia) with anesthesia: Yes (unclear if it was MH, patient reports his grandfather during surgery) Relationship: grandfather Last Oral Intake Last Oral intake: Last Oral Intake NPO since 22:00 04/05/25 06:28 Meds taken in AM with sips of Yes 04/05/25 06:28 water? Meds patient instructed to take am of surgery PONV PONV - corporate legal intern: PONV - corporate legal intern Female No 03/22/25 15:03 HX of Motion Sickness No 03/22/25 15:03 HX of N/V After Surgery No 03/22/25 15:03 Non-Smoker No 03/22/25 15:03 Duration of Surgery greater No 03/22/25 15:03 than 60 minutes Number of Risk Factors PONV Score Height & Weight Height & Weight: Anesthesia: Height & Weight Height 6 ft 1 in 04/05/25 06:28 Weight: 117 kg 04/05/25 06:28 Body Mass Index (BMI) 34.0 04/05/25 06:28 Respiratory Assessment Respiratory Assessment - corporate legal intern: Respiratory Tract Infection Hx - corporate legal intern Hx Respiratory Tract Infection No 03/22/25 15:03 STOP Sleep Apnea STOP Sleep Apnea - corporate legal intern: STOP Sleep Apnea - corporate legal intern Hx Hypertension Yes: CONTROLLED WITH MEDS 03/22/25 15:03 Hx Sleep Apnea Yes 03/22/25 15:03 CPAP Yes 03/22/25 15:03 BIPAP No 03/22/25 15:03 Do you snore loudly (louder than talking or can be heard Do you often feel tired/ fatigued/ sleepy during daytime? Has anyone observed you stop breathing during sleep? STOP Results Positive 03/22/25 15:03 QUESTION #5 FULL TEXT : Do you snore loudly (louder than talking or can be heard through closed doors)? 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 Specify any problems Hx of Preganancy in last 3 N/A 03/22/25 15:03 Months Nurse Filling Out Transfusion [email or web address] 03/22/25 15:03 & Questions: Date: 03/22/25 03/22/25 15:03 Time: 15:09 03/22/25 15:03 Patient unable to answer at this time (ie. confused, unrespo /Reproduction History /Reproductive History - corporate legal intern: /Reproductive Hx- corporate legal intern Hx Now Gestational Age (in weeks): EDC: Hx Hx Para Hx Section SAB Active Medications Active Medications: Current Medications Generic Name Dose Route Start Last Admin Trade Name Freq PRN Reason Stop Dose Admin Lactated Ringer's 1,000 mls @ 15 mls/hr 04/05/25 06:15 04/05/25 06:39 IV 15 mls/hr .Q48H CHE Administration Cefazolin Sodium 2 gm/ Sodium 110 mls @ 200 mls/hr 04/05/25 07:00 Chloride IV 04/05/25 07:32 INTRAOP ONE PFSH Medical History Depression Anxiety Restless legs Syncope Gastric reflux CPAP (continuous positive airway pressure) dependence Sleep apnea Smoker On home oxygen therapy Shortness of breath on exertion Chronic cough Leg cramps History of stress test H/O transesophageal echocardiography (DRAKE) for monitoring History of echocardiogram Cardiology follow-up encounter Arteriosclerotic heart disease Obesity History of left tennis elbow Tobacco abuse Type 2 diabetes mellitus Dyslipidemia Acute anxiety LOUISE (obstructive sleep apnea) Nocturnal hypoxemia Polyneuropathy Hypertension Environmental and seasonal allergies Uncontrolled persistent asthma Chest pain, atypical Hyperglycemia Arthralgia of acromioclavicular joint Chronic sinusitis Non-compliance Home Medications ?Medication ?Instructions ?Recorded ?Last Taken ?Type fluoxetine 40 mg capsule 40 mg PO DAILY 05/13/21 Unkn own History epinephrine 0.3 mg/0.3 mL 0.3 mg IM Q5-15M PRN anaphyl axis 05/14/21 Unknown History injection syringe nitroglycerin 0.4 mg sublingual 0.4 mg buccal Q5-15M P RN chest pain 01/08/22 Unknown History tablet budesonide-formoterol HFA 160 2 puff inhalation BID #3 ea 05/19/24 Unknown Rx mcg-4.5 mcg/actuation aerosol inhaler (Symbicort) cetirizine 10 mg tablet 10 mg PO DAILY #90 tabs 04/22 06/14 Unknown Rx fluticasone propionate 50 1 spray intranasal BID #16 g hemalatha 05/19/24 Unknown Rx mcg/actuation nasal spray,suspension (Flonase Allergy Relief) tiotropium bromide 2.5 2 puff inhalation QDAY #3 ea 05/19/24 Unknown Rx mcg/actuation mist for inhalation (Spiriva Respimat) spacer #1 ea 07/21/24 Unknown Rx Pulse ox meter #1 ea 07/26/24 Unknown Rx blood pressure kit-extra large #1 ea 07/26/24 Unknown Rx pen needle, diabetic 31 gauge x #100 ea 08/02/24 Unkno wn Rx 02/03 (Comfort EZ Pen [place]) guaifenesin 1,200 mg tablet, 1,200 mg PO Q12H PRN john estion 08/30/24 Unknown History extended release 12 hr lidocaine 4 % topical patch 2 patch topical QDAY PRN p ain #30 08/30/24 Unknown Rx (Salonpas (lidocaine)) ea magnesium oxide 400 mg (241.3 mg 400 mg PO QHS #30 tab s 08/30/24 Unknown Rx magnesium) tablet vitamin B complex 1 cap PO QDAY #30 caps 09/05 Unknown Rx montelukast 10 mg tablet 10 mg PO QPM #90 tabs Unknown Rx atorvastatin 20 mg tablet 20 mg PO QPM #90 tabs Unknown Rx empagliflozin 10 mg tablet 10 mg PO DAILY #90 tabs 03/31/25 Rx (Jardiance) lisinopril 20 mg tablet 20 mg PO DAILY #90 tabs 09/22 04/14 Unknown Rx metoprolol succinate 25 mg 25 mg PO QDAY #90 tabs 09/22 04/14 Unknown Rx tablet,extended release 24 hr insulin aspart U-100 100 unit/mL 25 unit (0.25 mL) sub cut TID #22.5 10/31/24 Unknown Rx (3 mL) subcutaneous pen (Novolog mL FlexPen U-100 Insulin aspart) metformin 1,000 mg tablet 1,000 mg PO BID #180 tabs 04/05/25 04:15 Rx albuterol 90 mcg-budesonide 80 2 inh inhalation TID [place] N shortness 11/01/24 04/05/25 04:15 Rx mcg/actuation HFA aerosol inhaler of breath #10.7 gram s (Airsupra) naproxen 500 mg tablet 500 mg PO BID #60 tabs 11/01 Unknown Rx handicap placard #1 ea 11/30/24 Unknown Rx blood-glucose sensor (FreeStyle #2 ea 12/12/24 Unknown Rx Jt 3 Plus Sensor device) promethazine-DM 6.25 mg-15 mg/5 mL 5 ml PO Q4-6H PRN c ough #473 mL 01/03/25 Unknown Rx oral syrup pregabalin 200 mg capsule (Lyrica) 200 mg PO TID #270 caps 02/01/25 04/05/25 04 :15 Rx oxymetazoline 0.05 % nasal spray 3 spray intranasal Q1 2H PRN nasal 02/22/25 Unknown History (Afrin (oxymetazoline)) congestion pantoprazole 40 mg tablet,delayed 40 mg PO QDAY #30 ta bs 02/22/25 Unknown Rx release tizanidine 4 mg capsule 4 mg PO Q8H PRN muscle spast icity 02/22/25 Unknown Rx #60 caps tirzepatide 2.5 mg/0.5 mL 2.5 mg (0.5 mL) subcut QWEEK #2 mL 03/02/25 03/29/25 Rx subcutaneous pen injector (Mounjaro) ipratropium 0.5 mg-albuterol 3 mg 3 ml inhalation Q4H PRN PRN SOB 03/21/25 Unknown Rx (2.5 mg base)/3 mL nebulization &/OR WHEEZING #180 mL soln nicotine (polacrilex) 4 mg buccal 4 mg buccal Q8H PRN nicotine 03/21/25 Unknown Rx lozenge cravings #72 ea insulin glargine 100 unit/mL (3 44 unit subcut DAILY 0 04/05/25 04/04/25 History mL) subcutaneous pen (Lantus Solostar U-100 Insulin) Allergy/AdvReac Type Severity Reaction Status Date / Time bee pollen AdvReac throat Verified 04/05/25 06:24 swelling Family History Mother Cancer Surgical History History of cardiac catheterization History of cataract surgery History of open heart surgery S/P CABG (coronary artery bypass graft) (01/31/22) History of arthroscopic knee surgery Social History adopted: No household members: spouse housing: house current occupational status: unemployed Smoking Status: Current every day smoker tobacco type: cigarettes Tobacco: How many years used: 34 quit status: considering quitting alcohol intake: former details: has not drank alcohol in 4 or 5 years substance use type: does not use diet: diabetic caffeine: Yes (On avg 1 cup coffee daily and a sugar free soda) Type: carbonated beverages and coffee eating out: rarely or never what type of physical activity do you participate in: walking frequency: daily duration: < 15 minutes/day seatbelt use: always do you feel safe at home: Yes Review of Systems (Anesthesia) ROS Narrative System reviewed and no additional complaints, except as documented. Physical Exam Const alert and oriented x3 General Appearance: anxious HEENT Teeth and Gingiva: poor dentition Resp normal respiratory effort Resp Narrative: some wheezing. patient reports he uses up to 3L of home O2 when he feels SOB
--- NOTE | 2025-04-05 07:10 | PCM.HP.STD ---
HPI - General HPI Narrative YENNY PENNINGTON, is a 54 M who presents for right endoscopic carpal tunnel release . no changes to h and p. right wrist marked. rab, post op instructions given. wrist brace 2 weeks. no strengthening 6 weeks. understands the risks with higher blood sugars. ok to proceed. MR#: [id number] Acct: [id number] Name: YENNY PENNINGTON Rep #: [id number] : 1970 Provider: Dr. Jim Self MD Age/Sex: 54/M [place] [facility] [place] [facility] [place]: Signed Intake Vital Signs 01/18/2514:15 02/24/2510:16 Height 6 ft 1 in 6 ft 1 in Intake Visit Reasons: BILATERAL WRISTS Allergies bee pollen Adverse Reaction (Verified 03/02/25 10:36) throat swelling Medications ?Medication ?Instructions ?Recorded ?Confirmed ?Type fluoxetine 40 mg capsule 40 mg PO DAILY 05/13/21 03/02/25 History epinephrine 0.3 mg/0.3 mL 0.3 mg IM Q5-15M PRN 05/14/21 03/02/25 History injection syringe nitroglycerin 0.4 mg sublingual 0.4 mg buccal Q5-15M PRN chest pain 01/08/22 03/02/25 History tablet budesonide-formoterol HFA 160 2 puff inhalation BID #3 ea 05/19/24 03/02/25 Rx mcg-4.5 mcg/actuation aerosol inhaler (Symbicort) cetirizine 10 mg tablet 10 mg PO DAILY #90 tabs 05/19/24 03/02/25 Rx fluticasone propionate 50 1 spray intranasal BID #16 grams 05/19/24 03/02/25 Rx mcg/actuation nasal spray,suspension (Flonase Allergy Relief) tiotropium bromide 2.5 2 puff inhalation QDAY #3 ea 05/19/24 03/02/25 Rx mcg/actuation mist for inhalation (Spiriva Respimat) insulin glargine 100 unit/mL (3 25 unit (0.25 mL) subcut BID #15 mL 07/20/24 03/02/25 Rx mL) subcutaneous pen (Lantus Solostar U-100 Insulin) spacer #1 ea 10/31/24 06/12/25 Rx Pulse ox meter #1 ea 07/26/24 03/02/25 Rx blood pressure kit-extra large #1 ea 07/26/24 03/02/25 Rx pen needle, diabetic 31 gauge x #100 ea 08/02/24 03/02/25 Rx / (Comfort EZ Pen [place]) guaifenesin 1,200 mg tablet, 1,200 mg PO Q12H PRN 08/30/24 03/02/25 History extended release 12 hr lidocaine 4 % topical patch 2 patch topical QDAY PRN pain #30 08/30/24 03/02/25 Rx (Salonpas (lidocaine)) ea magnesium oxide 400 mg (241.3 mg 400 mg PO QHS #30 tabs 08/30/24 03/02/25 Rx magnesium) tablet vitamin B complex 1 cap PO QDAY #30 caps 09/05/24 03/02/25 Rx montelukast 10 mg tablet 10 mg PO QPM #90 tabs 09/07/24 03/02/25 Rx atorvastatin 20 mg tablet 20 mg PO QPM #90 tabs 10/17/24 03/02/25 Rx empagliflozin 10 mg tablet 10 mg PO DAILY #90 tabs 10/17/24 03/02/25 Rx (Jardiance) lisinopril 20 mg tablet 20 mg PO DAILY #90 tabs 10/17/24 03/02/25 Rx metoprolol succinate 25 mg 25 mg PO QDAY #90 tabs 10/17/24 03/02/25 Rx tablet,extended release 24 hr insulin aspart U-100 100 unit/mL 25 unit (0.25 mL) subcut TID #22.5 10/31/24 03/02/25 Rx (3 mL) subcutaneous pen (Novolog mL FlexPen U-100 Insulin aspart) metformin 1,000 mg tablet 1,000 mg PO BID #180 tabs 10/31/24 03/02/25 Rx albuterol 90 mcg-budesonide 80 2 inh inhalation TID PRN shortness 11/01/24 03/02/25 Rx mcg/actuation HFA aerosol inhaler of breath #10.7 grams (Airsupra) naproxen 500 mg tablet 500 mg PO BID #60 tabs 11/01/24 03/02/25 Rx dulaglutide 4.5 mg/0.5 mL 4.5 mg (0.5 mL) subcut QWEEK #2 mL 11/21/24 03/02/25 Rx subcutaneous pen injector (Trulicity) handicap placard #1 ea 11/30/24 03/02/25 Rx blood-glucose sensor (FreeStyle #2 ea 12/12/24 03/02/25 Rx Jt 3 Plus Sensor device) promethazine-DM 6.25 mg-15 mg/5 mL 5 ml PO Q4-6H PRN cough #473 mL 01/03/25 03/02/25 Rx oral syrup pregabalin 200 mg capsule (Lyrica) 200 mg PO TID #270 caps 02/01/25 03/02/25 Rx ipratropium 0.5 mg-albuterol 3 mg 3 ml inhalation Q4H PRN PRN SOB 02/22/25 03/02/25 Rx (2.5 mg base)/3 mL nebulization &/OR WHEEZING #180 mL soln oxymetazoline 0.05 % nasal spray 3 spray intranasal Q12H PRN 02/22/25 03/02/25 History (Afrin (oxymetazoline)) pantoprazole 40 mg tablet,delayed 40 mg PO QDAY #30 tabs 02/22/25 03/02/25 Rx release tizanidine 4 mg capsule 4 mg PO Q8H PRN muscle spasticity 02/22/25 03/02/25 Rx #60 caps PFSH Medical History Arteriosclerotic heart disease Obesity History of left tennis elbow Tobacco abuse Type 2 diabetes mellitus Dyslipidemia Acute anxiety LOUISE (obstructive sleep apnea) Nocturnal hypoxemia Polyneuropathy Hypertension Environmental and seasonal allergies Uncontrolled persistent asthma Chest pain, atypical Hyperglycemia Arthralgia of acromioclavicular joint Chronic sinusitis Non-compliance Surgical History History of cataract surgery S/P CABG (coronary artery bypass graft) (01/31/22) History of open heart surgery History of arthroscopic knee surgery Family History Mother Cancer Social History adopted: No household members: spouse housing: house current occupational status: unemployed Smoking Status: Current every day smoker tobacco type: cigarettes Tobacco: How many years used: 34 quit status: considering quitting alcohol intake: former details: has not drank alcohol in 4 or 5 years substance use type: does not use diet: diabetic caffeine: Yes (On avg 1 cup coffee daily and a sugar free soda) Type: carbonated beverages and coffee eating out: rarely or never what type of physical activity do you participate in: walking frequency: daily duration: < 15 minutes/day seatbelt use: always do you feel safe at home: Yes HPI BILATERAL WRISTS Details: This documentation accurately reflects the service provided and the decisions made by me, Dr. Jim Self MD 03/02/25 8417. Part of today?s visit was documented by [ ], acting as scribe. YENNY PENNINGTON is a 54 year old M here today for follow-up of bilateral carpal tunnel syndrome. Try to get his glucose under control. The last hemoglobin A1c was 10. Supplemental Info DATE OF SERVICE: 10/05/24 Yenny presents with complaints of numbness and tingling in both hands, worse on the right side. Electrodiagnostic findings: Right median motor nerve demonstrates prolonged latency with reduced amplitude and reduced conduction velocity. Left median motor nerve demonstrates prolonged latency with reduced amplitude and reduced conduction velocity. Ulnar motor response is within normal limits bilaterally. Prolonged right median sensory latency at the wrist. Needle EMG testing was performed in the upper limbs. All muscles tested showed no evidence of denervation with normal motor unit action potentials. Electrodiagnostic impression: This is an abnormal study in the upper limbs 1. Electrodiagnostic findings suggestive of bilateral median mononeuropathy. This is consistent with a moderate bilateral carpal tunnel syndrome. 2. There is no electrodiagnostic evidence for cervical radiculopathy Coding Level of Care Code Off vis,est,level 4 Diagnoses Carpal tunnel syndrome on both sides G56.03 Assessment and Plan Assessment and Plan (1) Carpal tunnel syndrome on both sides: Status: Acute Plan: 54-year-old man with bilateral mild to moderate carpal tunnel syndrome. He does have poor glucose control is a smoker these things can definitely increase the risks of surgery quite a bit beyond a 1% infection risk and other problems. That being said we do have to balance the risks of continued nonoperative management and worsening of the compressive neuropathy at the wrist compared to the risks of surgery which generally are low. We have had many long discussions about the risks and benefits the patient does want to proceed with a right endoscopic carpal tunnel release. Hopefully by making a more smaller incision compared to open this will decrease the risk of infection and other problems associate with surgery. Some of the neuropathic pain and symptoms he is experiencing could be also from a peripheral neuropathy related to the glucose control. Signed the consent and we will also get a preoperative clearance in regards to his glucose medication management prior to the surgery. He underwent no further questions or concerns. Pros and cons risks and benefits were discussed with the patient including but not limited to infection, pain, stiffness, bleeding, damage to surrounding structures, neurovascular injury, recurrence or retear, failure or wear of hardware or fixation, instability, fracture, deep vein thrombosis and pulmonary embolism, anesthetic risks, , patient dissatisfaction, need for further surgery and other risks. Patient understood and wished to proceed with surgery, and signed the informed consent documentation. Ortho Exam General General: Yes no acute distress Neurologic: Yes alert and Yes oriented x3 Psychologic: Yes reasonable and appropriate [facility] Medical History Depression Anxiety Restless legs Syncope Gastric reflux CPAP (continuous positive airway pressure) dependence Sleep apnea Smoker On home oxygen therapy Shortness of breath on exertion Chronic cough Leg cramps History of stress test H/O transesophageal echocardiography (DRAKE) for monitoring History of echocardiogram Cardiology follow-up encounter Arteriosclerotic heart disease Obesity History of left tennis elbow Tobacco abuse Type 2 diabetes mellitus Dyslipidemia Acute anxiety LOUISE (obstructive sleep apnea) Nocturnal hypoxemia Polyneuropathy Hypertension Environmental and seasonal allergies Uncontrolled persistent asthma Chest pain, atypical Hyperglycemia Arthralgia of acromioclavicular joint Chronic sinusitis Non-compliance Home Medications ?Medication ?Instructions ?Recorded ?Last Taken ?Type fluoxetine 40 mg capsule 40 mg PO DAILY 05/13/21 Unknown History epinephrine 0.3 mg/0.3 mL 0.3 mg IM Q5-15M PRN anaphylaxis 05/14/21 Unknown History injection syringe nitroglycerin 0.4 mg sublingual 0.4 mg buccal Q5-15M PRN chest pain 01/08/22 Unknown History tablet budesonide-formoterol HFA 160 2 puff inhalation BID #3 ea 05/19/24 Unknown Rx mcg-4.5 mcg/actuation aerosol inhaler (Symbicort) cetirizine 10 mg tablet 10 mg PO DAILY #90 tabs 05/19/24 Unknown Rx fluticasone propionate 50 1 spray intranasal BID #16 grams 05/19/24 Unknown Rx mcg/actuation nasal spray,suspension (Flonase Allergy Relief) tiotropium bromide 2.5 2 puff inhalation QDAY #3 ea 05/19/24 Unknown Rx mcg/actuation mist for inhalation (Spiriva Respimat) spacer #1 ea 07/21/24 Unknown Rx Pulse ox meter #1 ea 07/26/24 Unknown Rx blood pressure kit-extra large #1 ea 07/26/24 Unknown Rx pen needle, diabetic 31 gauge x #100 ea 08/02/24 Unknown Rx 02/03 (Comfort EZ Pen [place]) guaifenesin 1,200 mg tablet, 1,200 mg PO Q12H PRN congestion 08/30/24 Unknown History extended release 12 hr lidocaine 4 % topical patch 2 patch topical QDAY PRN pain #30 08/30/24 Unknown Rx (Salonpas (lidocaine)) ea magnesium oxide 400 mg (241.3 mg 400 mg PO QHS #30 tabs 08/30/24 Unknown Rx magnesium) tablet vitamin B complex 1 cap PO QDAY #30 caps 09/05/24 Unknown Rx montelukast 10 mg tablet 10 mg PO QPM #90 tabs 09/07/24 Unknown Rx atorvastatin 20 mg tablet 20 mg PO QPM #90 tabs 10/17/24 Unknown Rx empagliflozin 10 mg tablet 10 mg PO DAILY #90 tabs 10/17/24 03/31/25 Rx (Jardiance) lisinopril 20 mg tablet 20 mg PO DAILY #90 tabs 10/17/24 Unknown Rx metoprolol succinate 25 mg 25 mg PO QDAY #90 tabs 10/17/24 Unknown Rx tablet,extended release 24 hr insulin aspart U-100 100 unit/mL 25 unit (0.25 mL) subcut TID #22.5 10/31/24 Unknown Rx (3 mL) subcutaneous pen (Novolog mL FlexPen U-100 Insulin aspart) metformin 1,000 mg tablet 1,000 mg PO BID #180 tabs 10/31/24 04/05/25 04:15 Rx albuterol 90 mcg-budesonide 80 2 inh inhalation TID PRN shortness 11/01/24 04/05/25 04:15 Rx mcg/actuation HFA aerosol inhaler of breath #10.7 grams (Airsupra) naproxen 500 mg tablet 500 mg PO BID #60 tabs 11/01/24 Unknown Rx handicap placard #1 ea 11/30/24 Unknown Rx blood-glucose sensor (FreeStyle #2 ea 12/12/24 Unknown Rx Jt 3 Plus Sensor device) promethazine-DM 6.25 mg-15 mg/5 mL 5 ml PO Q4-6H PRN cough #473 mL 01/03/25 Unknown Rx oral syrup pregabalin 200 mg capsule (Lyrica) 200 mg PO TID #270 caps 02/01/25 04/05/25 04:15 Rx oxymetazoline 0.05 % nasal spray 3 spray intranasal Q12H PRN nasal 02/22/25 Unknown History (Afrin (oxymetazoline)) congestion pantoprazole 40 mg tablet,delayed 40 mg PO QDAY #30 tabs 02/22/25 Unknown Rx release tizanidine 4 mg capsule 4 mg PO Q8H PRN muscle spasticity 02/22/25 Unknown Rx #60 caps tirzepatide 2.5 mg/0.5 mL 2.5 mg (0.5 mL) subcut QWEEK #2 mL 03/02/25 03/29/25 Rx subcutaneous pen injector (Mounjaro) ipratropium 0.5 mg-albuterol 3 mg 3 ml inhalation Q4H PRN PRN SOB 03/21/25 Unknown Rx (2.5 mg base)/3 mL nebulization &/OR WHEEZING #180 mL soln nicotine (polacrilex) 4 mg buccal 4 mg buccal Q8H PRN nicotine 03/21/25 Unknown Rx lozenge cravings #72 ea insulin glargine 100 unit/mL (3 44 unit subcut DAILY 04/05/25 04/04/25 History mL) subcutaneous pen (Lantus Solostar U-100 Insulin) Allergy/AdvReac Type Severity Reaction Status Date / Time bee pollen AdvReac throat Verified 04/05/25 06:24 swelling Family History Mother Cancer Surgical History History of cardiac catheterization History of cataract surgery History of open heart surgery S/P CABG (coronary artery bypass graft) (01/31/22) History of arthroscopic knee surgery Social History adopted: No household members: spouse housing: house current occupational status: unemployed Smoking Status: Current every day smoker tobacco type: cigarettes Tobacco: How many years used: 34 quit status: considering quitting alcohol intake: former details: has not drank alcohol in 4 or 5 years substance use type: does not use diet: diabetic caffeine: Yes (On avg 1 cup coffee daily and a sugar free soda) Type: carbonated beverages and coffee eating out: rarely or never what type of physical activity do you participate in: walking frequency: daily duration: < 15 minutes/day seatbelt use: always do you feel safe at home: Yes Vital Signs Vital Signs Vital Signs: 04/05/25 06:28 04/05/25 06:28 04/05/25 07:01 Temperature 97.2 F L 97.2 F L Temperature Source Temporal Pulse Rate 83 83 Respiratory Rate 18 18 Respiratory Pattern Normal Blood Pressure 125/84 H 125/84 H Blood Pressure Mean 97 Blood Pressure Source Monitor Blood Pressure Position Semi-Fowlers Blood Pressure Location Left Arm Pulse Ox 93 93 Oxygen Delivery Method Room Air Room Air Weight Weight: 257 lb 15.053 oz Body Mass Index (BMI) 34.0
--- NOTE | 2025-04-05 07:53 | PCM.OPRPT ---
Problems Associated Problem List Diagnoses (1) Carpal tunnel syndrome of right wrist: Procedures Musculoskeletal 20xxx-29xxx: Other Procedure See Report Operative Report (Standard) Operative Information Date of Procedure: 04/05/25 Pre-Operative Diagnosis: R CTS Post-Operative Diagnosis: same Surgery/Procedure Performed: R ECTR crew director: Yes Community Health Planning Director: Milagro Tasks completed by enrichment assistant: Retracting Type of Anesthesia: Local MAC RN Documented Start/Stop Times: Operation Date: 04/05/25 07:30 Case Time Into Pre-Op 04/05/25 06:03 Anesthesia Start 04/05/25 07:16 Into Room 04/05/25 07:16 Out of Pre-Op 04/05/25 07:16 Procedure Start 04/05/25 07:35 Procedure End 04/05/25 07:48 Anesthesia End 04/05/25 07:53 Out of Room 04/05/25 07:53 Procedure Start Time: 07:35 Procedure Stop Time: 07:48 Select all DRAINS/GRAFTS/IMPLANTS that apply: None Estimated Blood Loss: 10 Specimen collected: No Description of surgery: Patient brought to the operating room theater. Placed upon on the table. 2g iv ancef before the start of the case. MAC induced by the anesthetic team. Patient placed supine on the table all bony prominences padded. SCDs on the legs. Hand table used. Tourniquet applied properly padded to the upper extremity. Upper extremity prepped and draped in the usual sterile fashion with chlorhexidine-based prep solution allowing over 3 minutes drying time prior to draping. Preoperative timeout performed to confirm the site patient and the surgery. Began by elevating the limb and inflated the tourniquet to 250 mmHg. I used the Arthe[employer] center line endoscopic carpal tunnel kit technique. 5cc 0.25% bupivicaine for local anesthesia. I made a transverse 2 cm incision in line with the? transverse wrist crease.? This was in line with the fourth digit.? I carried the dissection down through skin and subcutaneous tissue achieved meticulous hemostasis. Just ulnar to palmaris tendon.? I incised the antebrachial fascia.? I passed sequential dilators into the carpal tunnel along the radial border of the Guyon's canal aiming for the fourth digit with the hand in extension.? I used a synovial elevator to identify the transverse fibers of the transverse carpal tunnel ligament.? Passed the scope into the carpal tunnel. Once I had identified the full proximal and distal extent of the ligament I fully released the ligament under direct visualization by deploying the blade and slowly withdrawing the scope made sequential passes until I no longer felt tension as well as the entire extent of the ligament was released under direct visualization.? Sounded the tunnel with mcgill tenotomy scissors, complete release, no bands. Arthroscope light was more visible through the skin. Release the forearm fascia also. Pictures taken and saved. Wounds thoroughly irrigated.? Tourniquet let down prior to end of the case and meticulous hemostasis achieved.? Thorough irrigation.? ? Incisions closed with 3-0 vicryl and dermabond and 3-0 moncryl for skin. ?Then adaptic 4x4 gauze and loose wrapped ELO bandage. Patient woken up,? transferred off the operating room table and taken to postanesthetic care unit in stable condition. All sponge needle instrument counts were correct no complications.?Plan for the patient to be discharged home according to day surgery criteria when they are comfortable. Follow-up in the office in 2 days time. Gentle ROM hand and elbow no heavy lifting. Recommend wrist brace 2 weeks. cpt [id number] Surgical Findings: as above Complications Complications: No Admit VTE Documentation VTE Present on Admission: No VTE Mechan Device Prophylaxis: SCD's VTE Pharm Prophylaxis ordered?: No Reason prophylaxis not ordered: Treatment Not Indicated
--- NOTE | 2025-04-05 07:58 | DCINST_ITS ---
Discharge Instructions Diet Discharge Diet: No restrictions Activity Discharge Activity: Return to Normal Activity Ice area for (Minutes): 10 Lifting Restrictions: no pushing pulling or gripping Keep extremity elevated above heart level: Operative Extremity Additional Activity Instructions:: rest your wrist for 6 weeks, brace for 2 weeks. Dressing / Incision Call your doctor if your incision/area has: Continuous Slow Oozing, Sudden Increased Bleeding, Increased Pain/ Swelling, Increased Redness, Foul Smelling Discharge and Swelling at the incision site Call your doctor if you observe: Fever of 101 or Higher, Coldness, Increased Pain and Numbness or Tingling Change Dressing in: leave in place till F/U Cleanse incision/area with: Do not get Incision Wet Follow Up Care Please Follow Up With: Jim Self MD When: 2 days Test Results: Test results from this visit will be discussed in further detail at your follow- up appointment, if applicable. Discharge Plan Admission Attending Provider: Jim Self Primary Care Provider: Joshua Rodriugez Instructions Patient Instructions: Carpal Tunnel Release Surgery Print Language: Indonesian Discharge Orders/Prescriptions Prescriptions: No Action fluoxetine 40 mg capsule 40 mg PO DAILY epinephrine 0.3 mg/0.3 mL syringe 0.3 mg IM Q5-15M PRN (Reason: anaphylaxis) Rx Instructions: do not exceed 3 doses per episode nitroglycerin 0.4 mg tablet, sublingual 0.4 mg buccal Q5-15M PRN (Reason: chest pain) budesonide-formoterol [Symbicort] 160-4.5 mcg/actuation HFA aerosol inhaler 2 puff inhalation BID Qty: 3 3RF Rx Instructions: administer with spacer, rinse mouth after each use cetirizine 10 mg tablet 10 mg PO DAILY Qty: 90 3RF fluticasone propionate [Flonase Allergy Relief] 50 mcg/actuation spray,suspension 1 spray intranasal BID Qty: 16 6RF Rx Instructions: administer into each nostril Spiriva Respimat 2.5 mcg/actuation mist 2 puff inhalation QDAY Qty: 3 3RF Rx Instructions: administer at approximately the same time(s) each day guaifenesin 1,200 mg tablet extended release 12hr 1,200 mg PO Q12H PRN (Reason: congestion) magnesium oxide 400 mg (241.3 mg magnesium) tablet 400 mg PO QHS Qty: 30 6RF lidocaine [Salonpas (lidocaine)] 4 % adhesive patch,medicated 2 patch topical QDAY PRN (Reason: pain) Qty: 30 6RF vitamin B complex Capsule 1 cap PO QDAY Qty: 30 3RF naproxen 500 mg tablet 500 mg PO BID Qty: 60 2RF Airsupra 90-80 mcg/actuation HFA aerosol inhaler 2 inh inhalation TID PRN (Reason: shortness of breath) Qty: 10.7 11RF Rx Instructions: as a single dose; may repeat up to 6 doses per day (12 inhalations) atorvastatin 20 mg tablet 20 mg PO QPM Qty: 90 3RF Jardiance 10 mg tablet 10 mg PO DAILY Qty: 90 3RF lisinopril 20 mg tablet 20 mg PO DAILY Qty: 90 3RF metoprolol succinate 25 mg tablet extended release 24 hr 25 mg PO QDAY Qty: 90 3RF insulin aspart U-100 [Novolog FlexPen U-100 Insulin] 100 unit/mL (3 mL) insulin pen 25 unit subcut TID Qty: 22.5 5RF metformin 1,000 mg tablet 1,000 mg PO BID Qty: 180 1RF (DME) FreeStyle Jt 3 Plus Sensor Device See Rx Instructions .Route Qty: 2 5RF Rx Instructions: 1 sensor q 15 days oxymetazoline [Afrin (oxymetazoline)] 0.05 % spray,non-aerosol 3 spray intranasal Q12H PRN (Reason: nasal congestion) pantoprazole 40 mg tablet,delayed release (DR/EC) 40 mg PO QDAY Qty: 30 3RF tizanidine 4 mg capsule 4 mg PO Q8H PRN (Reason: muscle spasticity) Qty: 60 1RF ipratropium-albuterol 0.5 mg-3 mg(2.5 mg base)/3 mL solution for nebulization 3 ml inhalation Q4H PRN PRN (Reason: SOB &/OR WHEEZING) Qty: 180 6RF nicotine (polacrilex) 4 mg lozenge 4 mg buccal Q8H PRN (Reason: nicotine cravings) Qty: 72 1RF insulin glargine [Lantus Solostar U-100 Insulin] 100 unit/mL (3 mL) insulin pen 44 unit subcut DAILY (DME) spacer See Rx Instructions .ROUTE .MEDSUPPLY Qty: 1 0RF Rx Instructions: As directed (DME) Pulse ox meter See Rx Instructions .Route .MEDSUPPLY Qty: 1 0RF Rx Instructions: As directed (DME) blood pressure kit-extra large Kit See Rx Instructions .Route Qty: 1 0RF Rx Instructions: As directed (DME) pen needle, diabetic [Comfort EZ Pen [place]] 31 gauge x 5/16 needle See Rx Instructions .Route Qty: 100 1RF Rx Instructions: As directed montelukast 10 mg tablet 10 mg PO QPM Qty: 90 3RF (DME) handicap placard See Rx Instructions .Route .MEDSUPPLY Qty: 1 0RF Rx Instructions: Duration 5 years, hip pain causing the disablilty. promethazine-DM 6.25-15 mg/5 mL syrup 5 ml PO Q4-6H PRN (Reason: cough) Qty: 473 1RF pregabalin [Lyrica] 200 mg capsule 200 mg PO TID Qty: 270 0RF Mounjaro 2.5 mg/0.5 mL pen injector 2.5 mg subcut QWEEK Qty: 2 3RF Rx Instructions: for 4 weeks Referrals / Follow Up: Joshua Rodriguez DO [Primary Care Provider] - Jim Self MD [Med Staff - Active Staff] - Disposition Disposition (needs filled in before D/C Order can be placed): Home, Self Care
--- NOTE | 2025-04-05 08:00 | PCM.POST.ANE ---
Anesthesia: Postop Eval I Current Vital Signs Temperature: 97.9 F Pulse Rate: 88 Blood Pressure: 115/75 Respiratory Rate: 17 Pulse Ox: 94 Oxygen Delivery Method: Room Air Assessment Airway patent: Yes Spontaneous unlabored respirations: Yes Mental status: Awake and Calm nausea: No Vomiting: No Anesthesia Complication: No Fluid Hydration Crystalloid volume administer (ml): 300 Total IV fluid infused: 300 Progress Note Anesthesia document: Postop Eval 1 completed: Yes
--- NOTE | 2025-04-05 09:03 | POSTOPAN2_ITS ---
Anesthesia Postop Eval I Sum Postop Eval Completion status Anesthesia document: Postop Eval 1 completed: Yes Anesthesia Postop Eval I Summary Anesthesia Postop Eval I Summary: Anesthesia Postop Eval I: Assessment Summary Airway patent Yes 04/05/25 08:02 REFRIGERATION BRAZER/[email or web address] Spontaneous unlabored Yes 04/05/25 08:02 REFRIGERATION BRAZER/[email or web address] respirations Mental status Awake,Calm 04/05/25 08:02 REFRIGERATION BRAZER/[email or web address] nausea No 04/05/25 08:02 REFRIGERATION BRAZER/[email or web address] Vomiting No 04/05/25 08:02 REFRIGERATION BRAZER/SOLDERER.ABAR Anesthesia Postop Eval I: Fluid Summary Crystalloid volume administer 300 04/05/25 08:02 REFRIGERATION BRAZER/[email or web address] (ml) Colloids volume administered ( ml) Blood Product volume administered (ml) Total IV fluid infused 300 04/05/25 08:02 REFRIGERATION BRAZER/[email or web address] Anesthesia Postop Eval I: Summary Notes Anesthesia Complication No 04/05/25 08:02 REFRIGERATION BRAZER/[email or web address] Anesthesia Complication Comment: Post-operative progress note Anesthesia: Postop Eval II Evaluation Mental status: Awake and Calm Pain Level: 0 nausea: No Vomiting: No Complications Anesthesia Complication: No
--- NOTE | 2025-04-05 09:03 | POSTOPAN2_ITS ---
Anesthesia Postop Eval I Sum Postop Eval Completion status Anesthesia document: Postop Eval 1 completed: Yes Anesthesia Postop Eval I Summary Anesthesia Postop Eval I Summary: Anesthesia Postop Eval I: Assessment Summary Airway patent Yes 04/05/25 08:02 [place].[email or web address] Spontaneous unlabored Yes 04/05/25 08:02 [place].ABAR respirations Mental status Awake,Calm 04/05/25 08:02 [place].ABAR nausea No 04/05/25 08:02 [place].ABAR Vomiting No 04/05/25 08:02 [place].ABAR Anesthesia Postop Eval I: Fluid Summary Crystalloid volume administer 300 04/05/25 08:02 [place].ABAR (ml) Colloids volume administered ( ml) Blood Product volume administered (ml) Total IV fluid infused 300 04/05/25 08:02 [place].ABAR Anesthesia Postop Eval I: Summary Notes Anesthesia Complication No 04/05/25 08:02 [place].ABAR Anesthesia Complication Comment: Post-operative progress note Anesthesia: Postop Eval II Evaluation Mental status: Awake and Calm Pain Level: 0 nausea: No Vomiting: No Complications Anesthesia Complication: No
--- NOTE | 2025-04-05 09:03 | PCM.POSTANE2 ---
Anesthesia Postop Eval I Sum Postop Eval Completion status Anesthesia document: Postop Eval 1 completed: Yes Anesthesia Postop Eval I Summary Anesthesia Postop Eval I Summary: Anesthesia Postop Eval I: Assessment Summary Airway patent Yes 04/05/25 08:02 SENIOR ESTIMATOR.[email or web address] Spontaneous unlabored Yes 04/05/25 08:02 SENIOR ESTIMATOR.ABAR respirations Mental status Awake,Calm 04/05/25 08:02 SENIOR ESTIMATOR.ABAR nausea No 04/05/25 08:02 SENIOR ESTIMATOR.ABAR Vomiting No 04/05/25 08:02 SENIOR ESTIMATOR.ABAR Anesthesia Postop Eval I: Fluid Summary Crystalloid volume administer 300 04/05/25 08:02 SENIOR ESTIMATOR.ABAR (ml) Colloids volume administered ( ml) Blood Product volume administered (ml) Total IV fluid infused 300 04/05/25 08:02 SENIOR ESTIMATOR.ABAR Anesthesia Postop Eval I: Summary Notes Anesthesia Complication No 04/05/25 08:02 SENIOR ESTIMATOR.ABAR Anesthesia Complication Comment: Post-operative progress note Anesthesia: Postop Eval II Evaluation Mental status: Awake and Calm Pain Level: 0 nausea: No Vomiting: No Complications Anesthesia Complication: No
--- NOTE | 2025-04-05 09:03 | PCM.POSTANE2 ---
Anesthesia Postop Eval I Sum Postop Eval Completion status Anesthesia document: Postop Eval 1 completed: Yes Anesthesia Postop Eval I Summary Anesthesia Postop Eval I Summary: Anesthesia Postop Eval I: Assessment Summary Airway patent Yes 04/05/25 08:02 BUTTER PRINTER.[email or web address] Spontaneous unlabored Yes 04/05/25 08:02 BUTTER PRINTER.ABAR respirations Mental status Awake,Calm 04/05/25 08:02 BUTTER PRINTER.ABAR nausea No 04/05/25 08:02 BUTTER PRINTER.ABAR Vomiting No 04/05/25 08:02 BUTTER PRINTER.ABAR Anesthesia Postop Eval I: Fluid Summary Crystalloid volume administer 300 04/05/25 08:02 BUTTER PRINTER.ABAR (ml) Colloids volume administered ( ml) Blood Product volume administered (ml) Total IV fluid infused 300 04/05/25 08:02 BUTTER PRINTER.ABAR Anesthesia Postop Eval I: Summary Notes Anesthesia Complication No 04/05/25 08:02 BUTTER PRINTER.ABAR Anesthesia Complication Comment: Post-operative progress note Anesthesia: Postop Eval II Evaluation Mental status: Awake and Calm Pain Level: 0 nausea: No Vomiting: No Complications Anesthesia Complication: No
== END 2025-04-05 08:32 | disposition home or self-care (01) ==
LOC: SDC 05:54 → AC 05:55
PROVIDERS: PCP Family Medicine; Referring Provider Orthopaedic Surgery Sports Medicine; Visit Provider Orthopaedic Surgery Sports Medicine
PROC: (CPT 29848; principal; 2025-04-05 07:15)
DX: G56.01 Carpal tunnel syndrome, right upper limb (principal); E11.42 Type 2 diabetes mellitus with diabetic polyneuropathy; Z79.4 Long term (current) use of insulin; E11.65 Type 2 diabetes mellitus with hyperglycemia; I10 Essential (primary) hypertension; F17.210 Nicotine dependence, cigarettes, uncomplicated; Z79.84 Long term (current) use of oral hypoglycemic drugs; Z79.85 Long-term (current) use of injectable non-insulin antidiabetic drugs; Z79.899 Other long term (current) drug therapy
CPT/HCPCS: 29848; 01810; 82962

== ENCOUNTER → 2025-06-05 | Outpatient (CLI) | payer MEDICAID, SELFPAY ==
--- NOTE | 2025-06-05 16:50 | MRI_ITS ---
PROCEDURE: LOWER EXT JOINT ONLY (ROUTINE) 06/05/2025 REASON FOR EXAM: CHRONIC PAIN TECHNIQUE: Procedure Code: MRILEJ Modality: MR Procedure: LOWER EXT JOINT ONLY (ROUTINE) T1, T2, stir, multiplanar and multisequence images of the right hip were obtained without IV contrast administration. COMPARISON: COMPARISON : January 18, 2025 x-ray FINDINGS: Bone marrow and osseous structures: There is no abnormal marrow edema to suggest stress reaction or fracture. There is no MR evidence of avascular necrosis. Articular cartilage: No significant joint space narrowing. No full or partial- thickness cartilage defects are identified. Labrum: No discrete labral tear or paralabral cyst. Hip joint: There is no intra-articular body. The ligamentum teres is unremarkable. Hip abductors: The gluteus medius and minimus tendons are intact with moderate tendinosis, with no full-thickness tear. There is a trace amount of fluid in the trochanteric bursa. Iliopsoas tendon: Intact without tendinosis or tear. No iliopsoas bursitis. MRI/Lower Ext Joint Only (Routine) IMPRESSION: The gluteus medius and minimus tendons are intact with moderate tendinosis, wit h no full-thickness tear. There is a trace amount of fluid in the trochanteric bursa. Reading Location: [facility]
== END | disposition home or self-care (01) ==
LOC: MRI 16:14
PROVIDERS: PCP Family Medicine; Referring Provider Orthopaedic Surgery; Visit Provider Orthopaedic Surgery
DX: M70.61 Trochanteric bursitis, right hip (principal); G89.29 Other chronic pain
CPT/HCPCS: 73721

== ENCOUNTER 2025-06-14 11:56 | Day surgery (SDC) | payer MEDICAID, SELFPAY ==
--- NOTE | 2025-05-31 14:55 | PAT.ANESEVAL ---
Pre-Assessment Diagnosis/Proposed Procedure Planned Operative Procedure(s): (L) Left Endoscopic Carpal Tunnel Release Anesthesia History Anesthesia History - global account executive: Anesthesia History - global account executive Hx Hospitalization No 05/31/25 10:24 Any Problems With Anesthesia No 05/31/25 10:24 Cholinesterase deficiency No 05/31/25 10:24 You/Your Family Experience Yes: unclear if it was MH, 05/31/25 10:24 fever (hyperthermia) with patient reports his grandfather during surgery Relationship grandfather 05/31/25 10:24 Recent Exposure to Contagious No 04/07/25 12:56 Disease Does patient have nerve No 05/31/25 10:24 stimulator Patient instructed to have device shut off --Does patient have Pacemaker or ICD? When Was Last Pacemaker Check QUESTION #4 FULL TEXT: You/Your Family Experience fever (hyperthermia) with Anesthesia Last Oral Intake Last Oral intake: Last Oral Intake NPO since Meds taken in AM with sips of water? Meds patient instructed to take am of surgery PONV PONV - global account executive: PONV - global account executive Female No 05/31/25 10:24 HX of Motion Sickness No 05/31/25 10:24 HX of N/V After Surgery No 05/31/25 10:24 Non-Smoker No 05/31/25 10:24 Duration of Surgery greater No 05/31/25 10:24 than 60 minutes Number of Risk Factors PONV Score Height & Weight Height & Weight: Anesthesia: Height & Weight Height 6 ft 1 in 05/18/25 13:00 Respiratory Assessment Respiratory Assessment - global account executive: Respiratory Tract Infection Hx - global account executive Hx Respiratory Tract Infection No 05/31/25 10:24 STOP Sleep Apnea STOP Sleep Apnea - global account executive: STOP Sleep Apnea - global account executive Hx Hypertension Yes: CONTROLLED WITH MEDS 05/31/25 10:24 Hx Sleep Apnea Yes 05/31/25 10:24 CPAP Yes 05/31/25 10:24 BIPAP No 05/31/25 10:24 Do you snore loudly (louder than talking or can be heard Do you often feel tired/ fatigued/ sleepy during daytime? Has anyone observed you stop breathing during sleep? STOP Results Positive 05/31/25 10:24 QUESTION #5 FULL TEXT : Do you snore loudly (louder than talking or can be heard through closed doors)? Tobacco Use History Tobacco Use History - global account executive: Tobacco Use History - global account executive Tobacco Use Smoking Status Current every day smoker 05/31/25 10:24 Hx Tobacco Use No 05/31/25 10:24 Years Smoking Packs Smoked per Day Smoking Cessation Date was within the last 15 years Hx Smoking Cessation Date Hx Smoking Cessation Counseling Hematologic Medial History Hematologic Hx - global account executive: Hematologic Medical Hx - documentation writer Hx of Blood Transfusion No 05/31/25 10:24 Hx of Transfusion in last 3 No 05/31/25 10:24 Months Date of Last Transfusion (if within last 3 months) Ever experience any problems No 05/31/25 10:24 with transfusion(s)? Specify any problems Hx of Preganancy in last 3 N/A 05/31/25 10:24 Months Nurse Filling Out Transfusion VCHRISTIN 05/31/25 10:24 & Questions: Date: 05/31/25 05/31/25 10:24 Time: 1005/31/25 10:24 Patient unable to answer at this time (ie. confused, unrespo /Reproduction History /Reproductive History - global account executive: /Reproductive Hx- global account executive Hx Now Gestational Age (in weeks): EDC: Hx Hx Para Hx Section SAB PFSH Medical History Depression Anxiety Restless legs Syncope Gastric reflux CPAP (continuous positive airway pressure) dependence Sleep apnea Smoker On home oxygen therapy Shortness of breath on exertion Chronic cough Leg cramps History of stress test H/O transesophageal echocardiography (DRAKE) for monitoring History of echocardiogram Cardiology follow-up encounter Arteriosclerotic heart disease Obesity History of left tennis elbow Tobacco abuse Type 2 diabetes mellitus Dyslipidemia Acute anxiety LOUISE (obstructive sleep apnea) Nocturnal hypoxemia Polyneuropathy Hypertension Environmental and seasonal allergies Uncontrolled persistent asthma Chest pain, atypical Hyperglycemia Arthralgia of acromioclavicular joint Chronic sinusitis Non-compliance Home Medications ?Medication ?Instructions ?Recorded ?Last Taken ?Type fluoxetine 40 mg capsule 40 mg PO DAILY 05/13/21 Unknown History epinephrine 0.3 mg/0.3 mL 0.3 mg IM Q5-15M PRN anaphylaxis 05/14/21 Unknown History injection syringe nitroglycerin 0.4 mg sublingual 0.4 mg buccal Q5-15M PRN chest pain 01/08/22 Unknown History tablet budesonide-formoterol HFA 160 2 puff inhalation BID #3 ea 05/19/24 Unknown Rx mcg-4.5 mcg/actuation aerosol inhaler (Symbicort) cetirizine 10 mg tablet 10 mg PO DAILY #90 tabs 05/19/24 Unknown Rx fluticasone propionate 50 1 spray intranasal BID #16 grams 05/19/24 Unknown Rx mcg/actuation nasal spray,suspension (Flonase Allergy Relief) tiotropium bromide 2.5 2 puff inhalation QDAY #3 ea 05/19/24 Unknown Rx mcg/actuation mist for inhalation (Spiriva Respimat) spacer #1 ea 07/21/24 Unknown Rx Pulse ox meter #1 ea 07/26/24 Unknown Rx blood pressure kit-extra large #1 ea 07/26/24 Unknown Rx pen needle, diabetic 31 gauge x #100 ea 08/02/24 Unknown Rx /16 (Comfort EZ Pen Sherrill) guaifenesin 1,200 mg tablet, 1,200 mg PO Q12H PRN congestion 08/30/24 Unknown History extended release 12 hr lidocaine 4 % topical patch 2 patch topical QDAY PRN pain #30 08/30/24 Unknown Rx (Salonpas (lidocaine)) ea magnesium oxide 400 mg (241.3 mg 400 mg PO QHS #30 tabs 08/30/24 Unknown Rx magnesium) tablet vitamin B complex 1 cap PO QDAY #30 caps 09/05/24 Unknown Rx montelukast 10 mg tablet 10 mg PO QPM #90 tabs 09/07/24 Unknown Rx atorvastatin 20 mg tablet 20 mg PO QPM #90 tabs 10/17/24 Unknown Rx empagliflozin 10 mg tablet 10 mg PO DAILY #90 tabs 10/17/24 03/31/25 Rx (Jardiance) lisinopril 20 mg tablet 20 mg PO DAILY #90 tabs 10/17/24 Unknown Rx metoprolol succinate 25 mg 25 mg PO QDAY #90 tabs 10/17/24 Unknown Rx tablet,extended release 24 hr insulin aspart U-100 100 unit/mL 25 unit (0.25 mL) subcut TID #22.5 10/31/24 Unknown Rx (3 mL) subcutaneous pen (Novolog mL FlexPen U-100 Insulin aspart) handicap vic #1 ea 11/30/24 Unknown Rx oxymetazoline 0.05 % nasal spray 3 spray intranasal Q12H PRN nasal 02/22/25 Unknown History (Afrin (oxymetazoline)) congestion pantoprazole 40 mg tablet,delayed 40 mg PO QDAY #30 tabs 02/22/25 Unknown Rx release tizanidine 4 mg capsule 4 mg PO Q8H PRN muscle spasticity 02/22/25 Unknown Rx #60 caps nicotine (polacrilex) 4 mg buccal 4 mg buccal Q8H PRN nicotine 03/21/25 Unknown Rx lozenge cravings #72 ea insulin glargine 100 unit/mL (3 44 unit subcut DAILY 04/05/25 04/04/25 History mL) subcutaneous pen (Lantus Solostar U-100 Insulin) blood-glucose sensor (FreeStyle #2 ea 04/10/25 Unknown Rx Jt 3 Plus Sensor device) furosemide 40 mg tablet (Lasix) 40 mg PO DAILY PRN edema/SOB #7 04/10/25 Unknown Rx tabs albuterol sulfate 90 mcg/actuation 2 puff inhalation Q4-6H PRN 04/13/25 Unknown Rx aerosol inhaler (Ventolin HFA) shortness of breath or wheezing #8.5 grams pregabalin 200 mg capsule (Lyrica) 200 mg PO TID #270 caps 04/20/25 Unknown Rx ipratropium 0.5 mg-albuterol 3 mg 3 ml inhalation Q4H PRN PRN SOB 04/26/25 Unknown Rx (2.5 mg base)/3 mL nebulization &/OR WHEEZING #180 mL soln prednisolone acetate 1 % eye 1 drp ophthalmic (eye) .2X/DAY 04/26/25 Unknown History drops,suspension blood sugar diagnostic (OneTouch #50 ea 05/04/25 Unknown Rx Verio test strips) metformin 1,000 mg tablet 1,000 mg PO BID #180 tabs 05/23/25 Unknown Rx aspirin 81 mg capsule 81 mg PO DAILY 05/31/25 Unknown History tirzepatide 5 mg/0.5 mL 5 mg (0.5 mL) subcut QWEEK #2 mL 05/31/25 Unknown Rx subcutaneous pen injector (Maritza) Allergy/AdvReac Type Severity Reaction Status Date / Time bee pollen AdvReac throat Verified 05/31/25 10:11 swelling Family History Mother Cancer Surgical History (Updated 05/31/25 @ 10:24 by Rohini Zhu) Hx of CABG History of carpal tunnel surgery History of cardiac catheterization History of cataract surgery History of open heart surgery S/P CABG (coronary artery bypass graft) (01/31/22) History of arthroscopic knee surgery Social History adopted: No household members: spouse housing: house current occupational status: unemployed Smoking Status: Current every day smoker tobacco type: cigarettes Tobacco: How many years used: 34 quit status: considering quitting alcohol intake: former details: has not drank alcohol in 4 or 5 years substance use type: does not use diet: diabetic caffeine: Yes (On avg 1 cup coffee daily and a sugar free soda) Type: carbonated beverages and coffee eating out: rarely or never what type of physical activity do you participate in: walking frequency: daily duration: < 15 minutes/day seatbelt use: always do you feel safe at home: Yes Audit: Pertinent Findings Pertinent Findings EKG Perinent findings: EKG 10/17/2024. Sinus rhythm Echo (EF%) pertinent findings: DRAKE 01/31/2022 Diaz. EF 50%. Patient is status post CABG. LVEF/RVEF 55%. Trivial MR. Consult pertinent findings: Cardiology visit 10/17/2024. Patient has coronary artery disease status post three-vessel CABG in 2021. Recommendation Anesthesia Recommendation Anesthesia recommendation: OPTIMIZED for anesthesia
[2025-06-14] VITALS (9 sets, daily range): BP systolic 110–128; BP diastolic 67–79; PULSE 76–82; RESP 16–18; TEMP 36.1–36.4; O2SAT 92–95; BMI 33.4
[2025-06-14] MEDS: Lactated Ringers 1,000 ML 15 ML IV (12:22)
--- NOTE | 2025-06-14 12:33 | PRE.ANES_ITS ---
ASA Classification* ASA Classification ASA Classification: 3 Assessment & Plan Anesthesia* Anesthesia Assessment Anesthesia Assessment: Discussed sedation and/or anesthesia options, risks, benefits, and alternatives with patient/parents/legal guardian/POA. Questions invited. The patient/parents/legal guardian/POA seems to understand and agrees to proceed with anesthesia plan. Reviewed the physical assessment, medical history, allergy history and patient home medications list prior to surgery/procedure/anesthetic and documented any changes. Performed airway and anesthesia risk assessments. Anesthesia Type Anesthesia Type: General and MAC History Source History Obtained from:: Patient and Chart Anesthesia Focused Assessment* Temperature: 97.1 F Pulse Rate: 82 Blood Pressure: 127/74 Respiratory Rate: 18 Pulse Ox: 95 Oxygen Delivery Method: Room Air Airway Assessment Mouth opens: >3 cm Mallampati Score: II Teeth Condition: Dentures (Edentulous) Neck Range of motion (ROM): Limited ROM Labs Anesthesia Preop lab: CBC WBC, (4.4-11.0) 8.3 K/mm3 08/31/24, 10:54 RBC, (4.6-6.2) 5.44 M/mm3 08/31/24, 10:54 Hgb, (13.0-16.5) 16.1 g/dL 08/31/24, 10:54 Hct, (40-54) 47.8 % 08/31/24, 10:54 Plt Count, (150-450) 303 K/mm3 08/31/24, 10:54 CHEMISTRY Potassium, (3.3-5.1) 4.1 mmol/L 03/21/25, 12:11 Sodium, (133-145) 136 mmol/L 03/21/25, 12:11 Magnesium, (1.5-2.2) 2.0 mg/dL 03/21/25, 12:11 BUN, (4-19) 16 mg/dL 03/21/25, 12:11 Creatinine, (0.70-1.20) 0.93 mg/dL 03/21/25, 12:11 Glucose, (70-99) 371 mg/dL H 03/21/25, 12:11 POC Glucose, (74-106) 167 mg/dL H 04/05/25, 06:21 TSH, (0.358-3.740) 1.340 uIU/mL 07/20/24, 10:28 COAG Pre-Assessment Diagnosis/Proposed Procedure Planned Operative Procedure(s): (L) Left Endoscopic Carpal Tunnel Release Anesthesia History Anesthesia History - 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 When Was Last Pacemaker Check QUESTION #4 FULL TEXT: You/Your Family Experience fever (hyperthermia) with Anesthesia Last Oral Intake Last Oral intake: Last Oral Intake NPO since 00:00 06/14/25 12:17 Meds taken in AM with sips of Yes 06/14/25 12:17 water? Meds patient instructed to LYRICA 06/14/25 12:17 take am of surgery PONV PONV - customer relations specialist: PONV - customer relations specialist Female No 05/31/25 10:24 HX of Motion Sickness No 05/31/25 10:24 HX of N/V After Surgery No 05/31/25 10:24 Non-Smoker No 05/31/25 10:24 Duration of Surgery greater No 05/31/25 10:24 than 60 minutes Number of Risk Factors PONV Score Height & Weight Height & Weight: Anesthesia: Height & Weight Height 6 ft 1 in 06/14/25 12:17 Weight: 115 kg 06/14/25 12:17 Body Mass Index (BMI) 33.4 06/14/25 12:17 Respiratory Assessment Respiratory Assessment - customer relations specialist: Respiratory Tract Infection Hx - customer relations specialist Hx Respiratory Tract Infection No 05/31/25 10:24 STOP Sleep Apnea STOP Sleep Apnea - customer relations specialist: STOP Sleep Apnea - customer relations specialist Hx Hypertension Yes: CONTROLLED WITH MEDS 05/31/25 10:24 Hx Sleep Apnea Yes 05/31/25 10:24 CPAP Yes 05/31/25 10:24 BIPAP No 05/31/25 10:24 Do you snore loudly (louder than talking or can be heard Do you often feel tired/ fatigued/ sleepy during daytime? Has anyone observed you stop breathing during sleep? STOP Results Positive 05/31/25 10:24 QUESTION #5 FULL TEXT : Do you snore loudly (louder than talking or can be heard through closed doors)? Tobacco Use History Tobacco Use History - customer relations specialist: Tobacco Use History - customer relations specialist Tobacco Use Smoking Status Current every day smoker 05/31/25 10:24 Hx Tobacco Use No 05/31/25 10:24 Years Smoking Packs Smoked per Day Smoking Cessation Date was within the last 15 years Hx Smoking Cessation Date Hx Smoking Cessation Counseling Hematologic Medial History Hematologic Hx - customer relations specialist: Hematologic Medical Hx - pigment pusher Hx of Blood Transfusion No 05/31/25 10:24 Hx of Transfusion in last 3 No 05/31/25 10:24 Months Date of Last Transfusion (if within last 3 months) Ever experience any problems No 05/31/25 10:24 with transfusion(s)? Specify any problems Hx of Preganancy in last 3 N/A 05/31/25 10:24 Months Nurse Filling Out Transfusion VCHRISTIN 05/31/25 10:24 & Questions: Date: 05/31/25 05/31/25 10:24 Time: 10:05/31/25 10:24 Patient unable to answer at this time (ie. confused, unrespo /Reproduction History /Reproductive History - customer relations specialist: /Reproductive Hx- customer relations specialist Hx Now Gestational Age (in weeks): EDC: Hx Hx Para Hx Section SAB Active Medications Active Medications: Current Medications Generic Name Dose Route Start Last Admin Trade Name Freq PRN Reason Stop Dose Admin Cefazolin Sodium 3 gm/ Sodium 115 mls @ 200 mls/hr 06/14/25 13:45 06/14/25 12:17 Chloride IV 06/14/25 14:19 Not Given INTRAOP ONE Lactated Ringer's 1,000 mls @ 15 mls/hr 06/14/25 12:00 06/14/25 12:22 IV 15 mls/hr .Q48H CHE Administration PFSH Medical History Depression Anxiety Restless legs Syncope Gastric reflux CPAP (continuous positive airway pressure) dependence Sleep apnea Smoker On home oxygen therapy Shortness of breath on exertion Chronic cough Leg cramps History of stress test H/O transesophageal echocardiography (DRAKE) for monitoring History of echocardiogram Cardiology follow-up encounter Arteriosclerotic heart disease Obesity History of left tennis elbow Tobacco abuse Type 2 diabetes mellitus Dyslipidemia Acute anxiety LOUISE (obstructive sleep apnea) Nocturnal hypoxemia Polyneuropathy Hypertension Environmental and seasonal allergies Uncontrolled persistent asthma Chest pain, atypical Hyperglycemia Arthralgia of acromioclavicular joint Chronic sinusitis Non-compliance Home Medications ?Medication ?Instructions ?Recorded ?Last Taken ?Type fluoxetine 40 mg capsule 40 mg PO DAILY 05/13/21 Unkn own History epinephrine 0.3 mg/0.3 mL 0.3 mg IM Q5-15M PRN anaphyl axis 05/14/21 Unknown History injection syringe nitroglycerin 0.4 mg sublingual 0.4 mg buccal Q5-15M P RN chest pain 01/08/22 Unknown History tablet budesonide-formoterol HFA 160 2 puff inhalation BID #3 ea 05/19/24 Unknown Rx mcg-4.5 mcg/actuation aerosol inhaler (Symbicort) cetirizine 10 mg tablet 10 mg PO DAILY #90 tabs 04/22 06/14 Unknown Rx fluticasone propionate 50 1 spray intranasal BID #16 g hemalatha 05/19/24 Unknown Rx mcg/actuation nasal spray,suspension (Flonase Allergy Relief) tiotropium bromide 2.5 2 puff inhalation QDAY #3 ea 05/19/24 Unknown Rx mcg/actuation mist for inhalation (Spiriva Respimat) spacer #1 ea 07/21/24 Unknown Rx Pulse ox meter #1 ea 07/26/24 Unknown Rx blood pressure kit-extra large #1 ea 07/26/24 Unknown Rx pen needle, diabetic 31 gauge x #100 ea 08/02/24 Unkno wn Rx 02/03 (Comfort EZ Pen [place]) guaifenesin 1,200 mg tablet, 1,200 mg PO Q12H PRN john estion 08/30/24 Unknown History extended release 12 hr lidocaine 4 % topical patch 2 patch topical QDAY PRN p ain #30 08/30/24 Unknown Rx (Salonpas (lidocaine)) ea magnesium oxide 400 mg (241.3 mg 400 mg PO QHS #30 tab s 08/30/24 Unknown Rx magnesium) tablet vitamin B complex 1 cap PO QDAY #30 caps 09/05 Unknown Rx montelukast 10 mg tablet 10 mg PO QPM #90 tabs Unknown Rx atorvastatin 20 mg tablet 20 mg PO QPM #90 tabs 06/13/25 Rx empagliflozin 10 mg tablet 10 mg PO DAILY #90 tabs 03/31/25 Rx (Jardiance) lisinopril 20 mg tablet 20 mg PO DAILY #90 tabs 09/2206/13/25 Rx metoprolol succinate 25 mg 25 mg PO QDAY #90 tabs 09/2206/13/25 Rx tablet,extended release 24 hr insulin aspart U-100 100 unit/mL 25 unit (0.25 mL) sub cut TID #22.5 10/31/24 Unknown Rx (3 mL) subcutaneous pen (Novolog mL FlexPen U-100 Insulin aspart) handicap placard #1 ea 11/30/24 Unknown Rx oxymetazoline 0.05 % nasal spray 3 spray intranasal Q1 2H PRN nasal 02/22/25 Unknown History (Afrin (oxymetazoline)) congestion pantoprazole 40 mg tablet,delayed 40 mg PO QDAY #30 ta bs 02/22/25 06/13/25 Rx release tizanidine 4 mg capsule 4 mg PO Q8H PRN muscle spast icity 02/22/25 Unknown Rx #60 caps nicotine (polacrilex) 4 mg buccal 4 mg buccal Q8H PRN nicotine 03/21/25 Unknown Rx lozenge cravings #72 ea insulin glargine 100 unit/mL (3 44 unit subcut DAILY 0 04/05/25 04/04/25 History mL) subcutaneous pen (Lantus Solostar U-100 Insulin) blood-glucose sensor (FreeStyle #2 ea 04/10/25 Unknown Rx Jt 3 Plus Sensor device) furosemide 40 mg tablet (Lasix) 40 mg PO DAILY PRN casimiro ma/SOB #7 04/10/25 Unknown Rx tabs pregabalin 200 mg capsule (Lyrica) 200 mg PO TID #270 caps 04/20/25 06/14/25 Rx ipratropium 0.5 mg-albuterol 3 mg 3 ml inhalation Q4H PRN PRN SOB 04/26/25 Unk nown Rx (2.5 mg base)/3 mL nebulization &/OR WHEEZING #180 mL soln prednisolone acetate 1 % eye 1 drp ophthalmic (eye) .2 X/DAY 04/26/25 Unknown History drops,suspension blood sugar diagnostic (OneTouch #50 ea 05/04/25 Unkno wn Rx Verio test strips) metformin 1,000 mg tablet 1,000 mg PO BID #180 tabs Unknown Rx aspirin 81 mg capsule 81 mg PO DAILY 05/31/2505/23 History tirzepatide 5 mg/0.5 mL 5 mg (0.5 mL) subcut QWEEK # 2 mL 05/31/25 Unknown Rx subcutaneous pen injector (Mounjaro) albuterol 90 mcg-budesonide 80 2 inh inhalation TID TX N shortness 06/12/25 Unknown Rx mcg/actuation HFA aerosol inhaler of breath #10.7 gram s (Airsupra) Allergy/AdvReac Type Severity Reaction Status Date / Time bee pollen AdvReac throat Verified 06/14/25 12:10 swelling Family History Mother Cancer Surgical History Hx of CABG History of carpal tunnel surgery History of cardiac catheterization History of cataract surgery History of open heart surgery S/P CABG (coronary artery bypass graft) (01/31/22) History of arthroscopic knee surgery Social History adopted: No household members: spouse housing: house current occupational status: unemployed Smoking Status: Current every day smoker tobacco type: cigarettes Tobacco: How many years used: 34 quit status: considering quitting alcohol intake: former details: has not drank alcohol in 4 or 5 years substance use type: does not use diet: diabetic caffeine: Yes (On avg 1 cup coffee daily and a sugar free soda) Type: carbonated beverages and coffee eating out: rarely or never what type of physical activity do you participate in: walking frequency: daily duration: < 15 minutes/day seatbelt use: always do you feel safe at home: Yes Review of Systems (Anesthesia) ROS Narrative System reviewed and no additional complaints, except as documented.
--- NOTE | 2025-06-14 13:32 | PCM.HP.STD ---
HPI - General HPI Narrative YENNY PENNINGTON, is a 54 M who presents for left endoscopic carpal tunnel release. No changes to history and physical exam. Risks alternatives benefits postoperative instructions given. The patient understands left wrist marked no further questions or concerns. Again his increased risk due to diabetes. MR#: [id number] Acct: [id number] Name: YENNY PENNINGTON Rep #: [id number] : 1970 Provider: Dr. Jim Self MD Age/Sex: 54/M Location: [facility] [email or web address] Status: Signed Intake Vital Signs 04/18/2512:57 04/26/2508:46 05/18/2513:00 Height 6 ft 1 in 6 ft 1 in 6 ft 1 in Weight: 256 lb 254 lb BMI 33.7 33.5 BP 124/81 H Blood Pressure Location Rt brachial Position Sitting Respiration 18 Pulse 81 Pulse Source Monitor Temp 97.5 F L Pulse Oximetry (%) 96 Oxygen Delivery Method nasal canula Oxygen Flow Rate (L/min) 2 Intake Visit Reasons: RIGHT HAND Chief Complaint: 1 month post op Accompanied by: Self Is patient in pain?: No Allergies bee pollen Adverse Reaction (Verified 05/18/25 13:03) throat swelling Medications ?Medication ?Instructions ?Recorded ?Confirmed ?Type fluoxetine 40 mg capsule 40 mg PO DAILY 05/13/21 05/18/25 History epinephrine 0.3 mg/0.3 mL 0.3 mg IM Q5-15M PRN anaphylaxis 05/14/21 05/18/25 History injection syringe nitroglycerin 0.4 mg sublingual 0.4 mg buccal Q5-15M PRN chest pain 01/08/22 05/18/25 History tablet budesonide-formoterol HFA 160 2 puff inhalation BID #3 ea 05/19/24 05/18/25 Rx mcg-4.5 mcg/actuation aerosol inhaler (Symbicort) cetirizine 10 mg tablet 10 mg PO DAILY #90 tabs 05/19/24 05/18/25 Rx fluticasone propionate 50 1 spray intranasal BID #16 grams 05/19/24 05/18/25 Rx mcg/actuation nasal spray,suspension (Flonase Allergy Relief) tiotropium bromide 2.5 2 puff inhalation QDAY #3 ea 05/19/24 05/18/25 Rx mcg/actuation mist for inhalation (Spiriva Respimat) spacer #1 ea 07/21/24 05/18/25 Rx Pulse ox meter #1 ea 07/26/24 05/18/25 Rx blood pressure kit-extra large #1 ea 07/26/24 05/18/25 Rx pen needle, diabetic 31 gauge x #100 ea 08/02/24 05/18/25 Rx 5/16 (Comfort EZ Pen [place]) guaifenesin 1,200 mg tablet, 1,200 mg PO Q12H PRN congestion 08/30/24 05/18/25 History extended release 12 hr lidocaine 4 % topical patch 2 patch topical QDAY PRN pain #30 08/30/24 05/18/25 Rx (Salonpas (lidocaine)) ea magnesium oxide 400 mg (241.3 mg 400 mg PO QHS #30 tabs 08/30/24 05/18/25 Rx magnesium) tablet vitamin B complex 1 cap PO QDAY #30 caps 09/05/24 05/18/25 Rx montelukast 10 mg tablet 10 mg PO QPM #90 tabs 09/07/24 05/18/25 Rx atorvastatin 20 mg tablet 20 mg PO QPM #90 tabs 10/17/24 05/18/25 Rx empagliflozin 10 mg tablet 10 mg PO DAILY #90 tabs 10/17/24 05/18/25 Rx (Jardiance) lisinopril 20 mg tablet 20 mg PO DAILY #90 tabs 10/17/24 05/18/25 Rx metoprolol succinate 25 mg 25 mg PO QDAY #90 tabs 10/17/24 05/18/25 Rx tablet,extended release 24 hr insulin aspart U-100 100 unit/mL 25 unit (0.25 mL) subcut TID #22.5 10/31/24 05/18/25 Rx (3 mL) subcutaneous pen (Novolog mL FlexPen U-100 Insulin aspart) metformin 1,000 mg tablet 1,000 mg PO BID #180 tabs 10/31/24 05/18/25 Rx handicap placard #1 ea 11/30/24 05/18/25 Rx oxymetazoline 0.05 % nasal spray 3 spray intranasal Q12H PRN nasal 02/22/25 05/18/25 History (Afrin (oxymetazoline)) congestion pantoprazole 40 mg tablet,delayed 40 mg PO QDAY #30 tabs 02/22/25 05/18/25 Rx release tizanidine 4 mg capsule 4 mg PO Q8H PRN muscle spasticity 02/22/25 05/18/25 Rx #60 caps tirzepatide 2.5 mg/0.5 mL 2.5 mg (0.5 mL) subcut QWEEK #2 mL 03/02/25 05/18/25 Rx subcutaneous pen injector (Aldounnicollero) nicotine (polacrilex) 4 mg buccal 4 mg buccal Q8H PRN nicotine 03/21/25 05/18/25 Rx lozenge cravings #72 ea insulin glargine 100 unit/mL (3 44 unit subcut DAILY 04/05/25 05/18/25 History mL) subcutaneous pen (Lantus Solostar U-100 Insulin) blood-glucose sensor (FreeStyle #2 ea 04/10/25 05/18/25 Rx Jt 3 Plus Sensor device) furosemide 40 mg tablet (Lasix) 40 mg PO DAILY PRN edema/SOB #7 04/10/25 05/18/25 Rx tabs albuterol sulfate 90 mcg/actuation 2 puff inhalation Q4-6H PRN 04/13/25 05/18/25 Rx aerosol inhaler (Ventolin HFA) shortness of breath or wheezing #8.5 grams pregabalin 200 mg capsule (Lyrica) 200 mg PO TID #270 caps 04/20/25 05/18/25 Rx ipratropium 0.5 mg-albuterol 3 mg 3 ml inhalation Q4H PRN PRN SOB 04/26/25 05/18/25 Rx (2.5 mg base)/3 mL nebulization &/OR WHEEZING #180 mL soln nicotine (polacrilex) 4 mg buccal mg PO 04/26/25 05/18/25 History mini lozenge prednisolone acetate 1 % eye 1 drp ophthalmic (eye) 4X/DAY 04/26/25 05/18/25 History drops,suspension tizanidine 4 mg tablet 4 mg PO Q8 PRN muscle spasm 04/26/25 05/18/25 History blood sugar diagnostic (OneTouch #50 ea 05/04/25 05/18/25 Rx Verio test strips) Have you fallen in the past year?: No PFSH Medical History Depression Anxiety Restless legs Syncope Gastric reflux CPAP (continuous positive airway pressure) dependence Sleep apnea Smoker On home oxygen therapy Shortness of breath on exertion Chronic cough Leg cramps History of stress test H/O transesophageal echocardiography (DRAKE) for monitoring History of echocardiogram Cardiology follow-up encounter Arteriosclerotic heart disease Obesity History of left tennis elbow Tobacco abuse Type 2 diabetes mellitus Dyslipidemia Acute anxiety LOUISE (obstructive sleep apnea) Nocturnal hypoxemia Polyneuropathy Hypertension Environmental and seasonal allergies Uncontrolled persistent asthma Chest pain, atypical Hyperglycemia Arthralgia of acromioclavicular joint Chronic sinusitis Non-compliance Surgical History History of carpal tunnel surgery History of cardiac catheterization History of cataract surgery History of open heart surgery S/P CABG (coronary artery bypass graft) (01/31/22) History of arthroscopic knee surgery Family History Mother Cancer Social History adopted: No household members: spouse housing: house current occupational status: unemployed Smoking Status: Current every day smoker tobacco type: cigarettes Tobacco: How many years used: 34 quit status: considering quitting alcohol intake: former details: has not drank alcohol in 4 or 5 years substance use type: does not use diet: diabetic caffeine: Yes (On avg 1 cup coffee daily and a sugar free soda) Type: carbonated beverages and coffee eating out: rarely or never what type of physical activity do you participate in: walking frequency: daily duration: < 15 minutes/day seatbelt use: always do you feel safe at home: Yes HPI RIGHT HAND Details: This documentation accurately reflects the service provided and the decisions made by me, Dr. Jim Self MD 05/18/25 4420. Part of today?s visit was documented by [ ], acting as scribe. YENNY PENNINGTON is a 54 year old M here today for 6 weeks FU right endoscopic carpal tunnel release. Wants to go ahead with left side now. BG has been stable. Has some mild pillar pain right side, but improving. Supplemental Info Electrodiagnostic impression: This is an abnormal study in the upper limbs 1. Electrodiagnostic findings suggestive of bilateral median mononeuropathy. This is consistent with a moderate bilateral carpal tunnel syndrome. 2. There is no electrodiagnostic evidence for cervical radiculopathy Coding Level of Care Code Off vis,est,level 4 Diagnoses Carpal tunnel syndrome of right wrist G56.01 Carpal tunnel syndrome on both sides G56.03 Assessment and Plan Assessment and Plan (1) Carpal tunnel syndrome of right wrist: Status: Acute Plan: YENNY PENNINGTON is a 54 year old M here today for 6 weeks FU right endoscopic carpal tunnel release. Patient has some mild pillar pain that should resolve in about 6 weeks. Patient wants to go ahead with left endoscopic carpal tunnel release. Again discussed the pros cons risk benefits as well as his increased risk due to his blood sugar. Signed consent form for left endoscopic carpal tunnel release. Pros and cons risks and benefits were discussed with the patient including but not limited to infection, pain, stiffness, bleeding, damage to surrounding structures, neurovascular injury, recurrence or retear, failure or wear of hardware or fixation, instability, fracture, deep vein thrombosis and pulmonary embolism, anesthetic risks, , patient dissatisfaction, need for further surgery and other risks. Patient understood and wished to proceed with surgery, and signed the informed consent documentation. Carpal Tunnel Syndrome (CTS) occurs when the median nerve, which runs through the wrist, becomes compressed. Treatment options vary based on the severity of the condition: Non-Surgical Treatments: Wrist Splinting: Wearing a splint at night to keep the wrist in a neutral position. Activity Modification: Avoiding repetitive wrist movements or adjusting work habits. Physical Therapy: Exercises to improve wrist and hand function. Medications: Anti-inflammatory drugs (NSAIDs) or corticosteroid injections to reduce swelling and pain. Surgical Treatment: Carpal Tunnel Release Surgery: A procedure where the ligament pressing on the median nerve is cut to relieve pressure. This is considered when non-surgical treatments are ineffective. Options are min-open or endoscopic. (2) Carpal tunnel syndrome on both sides: Status: Acute Clinical Quality Measures Falls Risk Screening/Assistive Devices Have you fallen in the past year?: No Ortho Exam General General: Yes no acute distress (Strong odor of tobacco and dirt) Neurologic: Yes alert and Yes oriented x3 Psychologic: Yes reasonable and appropriate Right Wrist/Hand Skin/Wound: Yes CDI, Yes healed, No Swelling, No Ecchymosis, Yes nail intact and Yes capillary refill normal Right Wrist: Yes ROM-Extension 0-60, ROM-Flexion 0-80, ROM-Pronation 0-80 and ROM-Supination 0-90 Motor: EPL: 5, FDP-2: 5, 1st Dorsal Interosseous: 5 and APB: 5 Sensation: Radial: I, Ulnar: I and Median: I WRIST: some dirt under his nails Left Wrist/Hand Skin/Wound: Yes CDI, No Swelling and No Ecchymosis Right Hip Skin: Yes CDI, No Ecchymosis, No soft tissue swelling and No Erythema Labral Stress Test: 1 Special Tests: No iliopsoas snap and No IT band snap HIP: pain in posterior lateral hip area + tenderness in greater trochanteric bursa IR 20 ER 50 with pain on the lateral sided hip No groin pain with hip range of motion Large abdominal pannus PFSH Medical History Depression Anxiety Restless legs Syncope Gastric reflux CPAP (continuous positive airway pressure) dependence Sleep apnea Smoker On home oxygen therapy Shortness of breath on exertion Chronic cough Leg cramps History of stress test H/O transesophageal echocardiography (DRAKE) for monitoring History of echocardiogram Cardiology follow-up encounter Arteriosclerotic heart disease Obesity History of left tennis elbow Tobacco abuse Type 2 diabetes mellitus Dyslipidemia Acute anxiety LOUISE (obstructive sleep apnea) Nocturnal hypoxemia Polyneuropathy Hypertension Environmental and seasonal allergies Uncontrolled persistent asthma Chest pain, atypical Hyperglycemia Arthralgia of acromioclavicular joint Chronic sinusitis Non-compliance Home Medications ?Medication ?Instructions ?Recorded ?Last Taken ?Type fluoxetine 40 mg capsule 40 mg PO DAILY 05/13/21 Unknown History epinephrine 0.3 mg/0.3 mL 0.3 mg IM Q5-15M PRN anaphylaxis 05/14/21 Unknown History injection syringe nitroglycerin 0.4 mg sublingual 0.4 mg buccal Q5-15M PRN chest pain 01/08/22 Unknown History tablet budesonide-formoterol HFA 160 2 puff inhalation BID #3 ea 05/19/24 Unknown Rx mcg-4.5 mcg/actuation aerosol inhaler (Symbicort) cetirizine 10 mg tablet 10 mg PO DAILY #90 tabs 05/19/24 Unknown Rx fluticasone propionate 50 1 spray intranasal BID #16 grams 05/19/24 Unknown Rx mcg/actuation nasal spray,suspension (Flonase Allergy Relief) tiotropium bromide 2.5 2 puff inhalation QDAY #3 ea 05/19/24 Unknown Rx mcg/actuation mist for inhalation (Spiriva Respimat) spacer #1 ea 07/21/24 Unknown Rx Pulse ox meter #1 ea 07/26/24 Unknown Rx blood pressure kit-extra large #1 ea 07/26/24 Unknown Rx pen needle, diabetic 31 gauge x #100 ea 08/02/24 Unknown Rx 02/03 (Comfort EZ Pen [place]) guaifenesin 1,200 mg tablet, 1,200 mg PO Q12H PRN congestion 08/30/24 Unknown History extended release 12 hr lidocaine 4 % topical patch 2 patch topical QDAY PRN pain #30 08/30/24 Unknown Rx (Salonpas (lidocaine)) ea magnesium oxide 400 mg (241.3 mg 400 mg PO QHS #30 tabs 08/30/24 Unknown Rx magnesium) tablet vitamin B complex 1 cap PO QDAY #30 caps 09/05/24 Unknown Rx montelukast 10 mg tablet 10 mg PO QPM #90 tabs 09/07/24 Unknown Rx atorvastatin 20 mg tablet 20 mg PO QPM #90 tabs 10/17/24 06/13/25 Rx empagliflozin 10 mg tablet 10 mg PO DAILY #90 tabs 10/17/24 03/31/25 Rx (Jardiance) lisinopril 20 mg tablet 20 mg PO DAILY #90 tabs 10/17/24 06/13/25 Rx metoprolol succinate 25 mg 25 mg PO QDAY #90 tabs 10/17/24 06/13/25 Rx tablet,extended release 24 hr insulin aspart U-100 100 unit/mL 25 unit (0.25 mL) subcut TID #22.5 10/31/24 Unknown Rx (3 mL) subcutaneous pen (Novolog mL FlexPen U-100 Insulin aspart) handicap placard #1 ea 11/30/24 Unknown Rx oxymetazoline 0.05 % nasal spray 3 spray intranasal Q12H PRN nasal 02/22/25 Unknown History (Afrin (oxymetazoline)) congestion pantoprazole 40 mg tablet,delayed 40 mg PO QDAY #30 tabs 02/22/25 06/13/25 Rx release tizanidine 4 mg capsule 4 mg PO Q8H PRN muscle spasticity 02/22/25 Unknown Rx #60 caps nicotine (polacrilex) 4 mg buccal 4 mg buccal Q8H PRN nicotine 03/21/25 Unknown Rx lozenge cravings #72 ea insulin glargine 100 unit/mL (3 44 unit subcut DAILY 04/05/25 04/04/25 History mL) subcutaneous pen (Lantus Solostar U-100 Insulin) blood-glucose sensor (FreeStyle #2 ea 04/10/25 Unknown Rx Jt 3 Plus Sensor device) furosemide 40 mg tablet (Lasix) 40 mg PO DAILY PRN edema/SOB #7 04/10/25 Unknown Rx tabs pregabalin 200 mg capsule (Lyrica) 200 mg PO TID #270 caps 04/20/25 06/14/25 Rx ipratropium 0.5 mg-albuterol 3 mg 3 ml inhalation Q4H PRN PRN SOB 04/26/25 Unknown Rx (2.5 mg base)/3 mL nebulization &/OR WHEEZING #180 mL soln prednisolone acetate 1 % eye 1 drp ophthalmic (eye) .2X/DAY 04/26/25 Unknown History drops,suspension blood sugar diagnostic (OneTouch #50 ea 05/04/25 Unknown Rx Verio test strips) metformin 1,000 mg tablet 1,000 mg PO BID #180 tabs 05/23/25 Unknown Rx aspirin 81 mg capsule 81 mg PO DAILY 05/31/25 06/13/25 History tirzepatide 5 mg/0.5 mL 5 mg (0.5 mL) subcut QWEEK #2 mL 05/31/25 Unknown Rx subcutaneous pen injector (Mounjaro) albuterol 90 mcg-budesonide 80 2 inh inhalation TID PRN shortness 06/12/25 Unknown Rx mcg/actuation HFA aerosol inhaler of breath #10.7 grams (Airsupra) Allergy/AdvReac Type Severity Reaction Status Date / Time bee pollen AdvReac throat Verified 06/14/25 12:10 swelling Family History Mother Cancer Surgical History Hx of CABG History of carpal tunnel surgery History of cardiac catheterization History of cataract surgery History of open heart surgery S/P CABG (coronary artery bypass graft) (01/31/22) History of arthroscopic knee surgery Social History adopted: No household members: spouse housing: house current occupational status: unemployed Smoking Status: Current every day smoker tobacco type: cigarettes Tobacco: How many years used: 34 quit status: considering quitting alcohol intake: former details: has not drank alcohol in 4 or 5 years substance use type: does not use diet: diabetic caffeine: Yes (On avg 1 cup coffee daily and a sugar free soda) Type: carbonated beverages and coffee eating out: rarely or never what type of physical activity do you participate in: walking frequency: daily duration: < 15 minutes/day seatbelt use: always do you feel safe at home: Yes Vital Signs Vital Signs Vital Signs: 06/14/25 12:17 06/14/25 12:17 06/14/25 12:35 Temperature 97.1 F L 97.1 F L Temperature Source Temporal Pulse Rate 82 82 Respiratory Rate 18 18 Respiratory Pattern Normal Blood Pressure 127/74 H 127/74 H Blood Pressure Mean 91 Blood Pressure Source Monitor Blood Pressure Position Semi-Fowlers Blood Pressure Location Left Arm Pulse Ox 95 95 Oxygen Delivery Method Room Air Room Air Weight Weight: 253 lb 8.505 oz Body Mass Index (BMI) 33.4 Results Lab / Micro Data Labs: Laboratory Results - last 24 hr 06/14/25 12:13: POC Glucose 117 H
[2025-06-14] MEDS: Cefazolin 1 GM/5 ML Vial 3 GM IV (13:36)
[2025-06-14] MEDS: Midazolam 2 MG/2 ML Syringe IV (13:36)
[2025-06-14] MEDS: Lidocaine 1% (5 ml sdv) 5 ML Vial IV (13:42)
[2025-06-14] MEDS: fentaNYL 100 MCG/2 ML Ampul 50 MCG IV (13:42)
--- NOTE | 2025-06-14 14:08 | PCM.OPRPT ---
Procedures Musculoskeletal 20xxx-29xxx: Other Procedure See Report Operative Report (Standard) Operative Information Date of Procedure: 06/14/25 Pre-Operative Diagnosis: L CTS Post-Operative Diagnosis: same Surgery/Procedure Performed: L ECTR dispenser operator: No Type of Anesthesia: General and Local RN Documented Start/Stop Times: Operation Date: 06/14/25 13:45 Case Time Into Pre-Op 06/14/25 11:59 Out of Pre-Op 06/14/25 13:35 Anesthesia Start 06/14/25 13:36 Into Room 06/14/25 13:36 Procedure Start 06/14/25 13:49 Procedure End 06/14/25 14:05 Procedure Start Time: 13:49 Procedure Stop Time: 14:05 Select all DRAINS/GRAFTS/IMPLANTS that apply: None Estimated Blood Loss: 10 Specimen collected: No Description of surgery: Patient brought to the operating room theater. Placed upon on the table. 3g iv ancef before the start of the case. MAC induced by the anesthetic team. Patient placed supine on the table all bony prominences padded. SCDs on the legs. Hand table used left side. Tourniquet applied properly padded to the upper extremity. Upper extremity prepped and draped in the usual sterile fashion with chlorhexidine-based prep solution allowing over 3 minutes drying time prior to draping. Preoperative timeout performed to confirm the site patient and the surgery. Began by elevating the limb and inflated the tourniquet to 250 mmHg. I used the Arthex center line endoscopic carpal tunnel kit technique. 5cc 0.25% bupivicaine for local anesthesia. I made a transverse 2 cm incision in line with the? transverse wrist crease.? This was in line with the fourth digit.? I carried the dissection down through skin and subcutaneous tissue achieved meticulous hemostasis. Just ulnar to palmaris tendon.? I incised the antebrachial fascia.? I passed sequential dilators into the carpal tunnel along the radial border of the Guyon's canal aiming for the fourth digit with the wrist in extension.? I used a synovial elevator to identify the transverse fibers of the transverse carpal tunnel ligament.? Passed the scope into the carpal tunnel. Once I had identified the full proximal and distal extent of the ligament I fully released the ligament under direct visualization by deploying the blade and slowly withdrawing the scope made sequential passes until I no longer felt tension as well as the entire extent of the ligament was released under direct visualization.? Sounded the tunnel with mcgill tenotomy scissors, complete release, no bands. Nerve visualized and protected. Arthroscope light was more visible through the skin. More room for the large dilator. Release the forearm fascia also. Pictures taken and saved. Wounds thoroughly irrigated.? Tourniquet let down prior to end of the case and meticulous hemostasis achieved.? Thorough irrigation.? ? Incisions closed with 3-0 vicryl and 3-0 monocryl, steri strips. ?Then adaptic 4x4 gauze and tape. Patient woken up,? transferred off the operating room table and taken to postanesthetic care unit in stable condition. All sponge needle instrument counts were correct no complications.?Plan for the patient to be discharged home according to day surgery criteria when they are comfortable. Follow-up in the office in 2 days time. Gentle ROM finger and elbow no heavy lifting. Recommend wrist brace 2 weeks. cpt [id number] Surgical Findings: as above Complications Complications: No Admit VTE Documentation VTE Present on Admission: No VTE Mechan Device Prophylaxis: SCD's VTE Pharm Prophylaxis ordered?: No Reason prophylaxis not ordered: Treatment Not Indicated
--- NOTE | 2025-06-14 14:11 | EX.PCM.DISCH ---
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 Keep extremity elevated above heart level: Operative Extremity Dressing / Incision Call your doctor if your incision/area has: Continuous Slow Oozing, Sudden Increased Bleeding, Increased Pain/ Swelling, Increased Redness, Foul Smelling Discharge and Swelling at the incision site Call your doctor if you observe: Fever of 101 or Higher, Coldness, Increased Pain and Numbness or Tingling Change Dressing in: leave in place till F/U Cleanse incision/area with: Do not get Incision Wet Follow Up Care Please Follow Up With: Jim Self MD When: within 2 weeks Test Results: Test results from this visit will be discussed in further detail at your follow-up appointment, if applicable. Discharge Plan Admission Attending Provider: Jim Self Primary Care Provider: Joshua Rodriguez Instructions Patient Instructions: Carpal Tunnel Release Surgery Print Language: Hong [place]er Discharge Orders/Prescriptions Prescriptions: No Action fluoxetine 40 mg capsule 40 mg PO DAILY epinephrine 0.3 mg/0.3 mL syringe 0.3 mg IM Q5-15M PRN (Reason: anaphylaxis) Rx Instructions: do not exceed 3 doses per episode nitroglycerin 0.4 mg tablet, sublingual 0.4 mg buccal Q5-15M PRN (Reason: chest pain) budesonide-formoterol [Symbicort] 160-4.5 mcg/actuation HFA aerosol inhaler 2 puff inhalation BID Qty: 3 3RF Rx Instructions: administer with spacer, rinse mouth after each use cetirizine 10 mg tablet 10 mg PO DAILY Qty: 90 3RF fluticasone propionate [Flonase Allergy Relief] 50 mcg/actuation spray,suspension 1 spray intranasal BID Qty: 16 6RF Rx Instructions: administer into each nostril Spiriva Respimat 2.5 mcg/actuation mist 2 puff inhalation QDAY Qty: 3 3RF Rx Instructions: administer at approximately the same time(s) each day guaifenesin 1,200 mg tablet extended release 12hr 1,200 mg PO Q12H PRN (Reason: congestion) magnesium oxide 400 mg (241.3 mg magnesium) tablet 400 mg PO QHS Qty: 30 6RF lidocaine [Salonpas (lidocaine)] 4 % adhesive patch,medicated 2 patch topical QDAY PRN (Reason: pain) Qty: 30 6RF vitamin B complex Capsule 1 cap PO QDAY Qty: 30 3RF atorvastatin 20 mg tablet 20 mg PO QPM Qty: 90 3RF Jardiance 10 mg tablet 10 mg PO DAILY Qty: 90 3RF Patient Comments: STOP 3 DAYS PRIOR TO PROCEDURE-LAST DOSE 06/10/25 lisinopril 20 mg tablet 20 mg PO DAILY Qty: 90 3RF metoprolol succinate 25 mg tablet extended release 24 hr 25 mg PO QDAY Qty: 90 3RF insulin aspart U-100 [Novolog FlexPen U-100 Insulin] 100 unit/mL (3 mL) insulin pen 25 unit subcut TID Qty: 22.5 5RF prednisolone acetate 1 % drops,suspension 1 drp ophthalmic (eye) .2X/DAY ipratropium-albuterol 0.5 mg-3 mg(2.5 mg base)/3 mL solution for nebulization 3 ml inhalation Q4H PRN PRN (Reason: SOB &/OR WHEEZING) Qty: 180 6RF oxymetazoline [Afrin (oxymetazoline)] 0.05 % spray,non-aerosol 3 spray intranasal Q12H PRN (Reason: nasal congestion) pantoprazole 40 mg tablet,delayed release (DR/EC) 40 mg PO QDAY Qty: 30 3RF tizanidine 4 mg capsule 4 mg PO Q8H PRN (Reason: muscle spasticity) Qty: 60 1RF nicotine (polacrilex) 4 mg lozenge 4 mg buccal Q8H PRN (Reason: nicotine cravings) Qty: 72 1RF Airsupra 90-80 mcg/actuation HFA aerosol inhaler 2 inh inhalation TID PRN (Reason: shortness of breath) Qty: 10.7 11RF Rx Instructions: as a single dose; may repeat up to 6 doses per day (12 inhalations) insulin glargine [Lantus Solostar U-100 Insulin] 100 unit/mL (3 mL) insulin pen 44 unit subcut DAILY aspirin 81 mg capsule 81 mg PO DAILY Patient Comments: STOP 3 DAYS PRIOR-06/10 (DME) spacer See Rx Instructions .ROUTE .MEDSUPPLY Qty: 1 0RF Rx Instructions: As directed ([facility] [place]) Pulse ox meter See Rx Instructions .Route .MEDSUPPLY Qty: 1 0RF Rx Instructions: As directed (DME) blood pressure kit-extra large Kit See Rx Instructions .Route Qty: 1 0RF Rx Instructions: As directed (DME) pen needle, diabetic [Comfort EZ Pen [place]] 31 gauge x 5/16 needle See Rx Instructions .Route Qty: 100 1RF Rx Instructions: As directed montelukast 10 mg tablet 10 mg PO QPM Qty: 90 3RF (DME) handicap placard See Rx Instructions .Route .MEDSUPPLY Qty: 1 0RF Rx Instructions: Duration 5 years, hip pain causing the disablilty. furosemide [Lasix] 40 mg tablet 40 mg PO DAILY PRN (Reason: edema/SOB) Qty: 7 0RF (DME) FreeStyle Jt 3 Plus Sensor Device See Rx Instructions .Route Qty: 2 5RF Rx Instructions: 1 sensor q 15 days pregabalin [Lyrica] 200 mg capsule 200 mg PO TID Qty: 270 0RF (DME) OneTouch Verio test strips Strip See Rx Instructions .Route Qty: 50 6RF Rx Instructions: for backup in case of CGM failure or hypoglycemia metformin 1,000 mg tablet 1,000 mg PO BID Qty: 180 3RF Mounjaro 5 mg/0.5 mL pen injector 5 mg subcut QWEEK Qty: 2 3RF Referrals / Follow Up: Joshua Rodriguez DO [Primary Care Provider, Internal Medicine] Jim Self MD [Med Staff - Active Staff, Orthopedics] Disposition Disposition (needs filled in before D/C Order can be placed): Home, Self Care
--- NOTE | 2025-06-14 14:16 | PCM.POST.ANE ---
Anesthesia: Postop Eval I Current Vital Signs Temperature: 97.5 F Pulse Rate: 80 Blood Pressure: 128/75 Respiratory Rate: 18 Pulse Ox: 95 Assessment Airway patent: Yes Spontaneous unlabored respirations: Yes nausea: No Vomiting: No Anesthesia Complication: No Fluid Hydration Crystalloid volume administer (ml): 400 Total IV fluid infused: 400 Progress Note Anesthesia document: Postop Eval 1 completed: Yes
--- NOTE | 2025-06-14 15:51 | POSTOPAN2_ITS ---
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.[email or web address] Spontaneous unlabored Yes 06/14/25 14:16 SALES AND BUSINESS DEVELOPMENT MANAGER.[email or web address] respirations Mental status nausea No 06/14/25 14:16 SALES AND BUSINESS DEVELOPMENT MANAGER.[email or web address] Vomiting No 06/14/25 14:16 SALES AND BUSINESS DEVELOPMENT MANAGER.[email or web address] Anesthesia Postop Eval I: Fluid Summary Crystalloid volume administer 400 06/14/25 14:16 SALES AND BUSINESS DEVELOPMENT MANAGER.TNES (ml) Colloids volume administered ( ml) Blood Product volume administered (ml) Total IV fluid infused 400 06/14/25 14:16 SALES AND BUSINESS DEVELOPMENT MANAGER.[email or web address] Anesthesia Postop Eval I: Summary Notes Anesthesia Complication No 06/14/25 14:16 SALES AND BUSINESS DEVELOPMENT MANAGER.[email or web address] Anesthesia Complication Comment: Post-operative progress note Anesthesia: Postop Eval II Evaluation Mental status: Awake and Calm Pain Level: 1 nausea: No Vomiting: No Complications Anesthesia Complication: No
--- NOTE | 2025-06-14 15:51 | PCM.POSTANE2 ---
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 Spontaneous unlabored Yes 06/14/25 14:16 KIDS CLUB ATTENDANT.[email or web address] respirations Mental status nausea No 06/14/25 14:16 KIDS CLUB ATTENDANT.TNES Vomiting No 06/14/25 14:16 KIDS CLUB ATTENDANT.[email or web address] Anesthesia Postop Eval I: Fluid Summary Crystalloid volume administer 400 06/14/25 14:16 KIDS CLUB ATTENDANT.[email or web address] (ml) Colloids volume administered ( ml) Blood Product volume administered (ml) Total IV fluid infused 400 06/14/25 14:16 KIDS CLUB ATTENDANT.[email or web address] Anesthesia Postop Eval I: Summary Notes Anesthesia Complication No 06/14/25 14:16 KIDS CLUB [email or web address].[email or web address] Anesthesia Complication Comment: Post-operative progress note Anesthesia: Postop Eval II Evaluation Mental status: Awake and Calm Pain Level: 1 nausea: No Vomiting: No Complications Anesthesia Complication: No
== END 2025-06-14 15:05 | disposition home or self-care (01) ==
LOC: SDC 11:57 → AC 11:59
PROVIDERS: PCP Family Medicine; Referring Provider Orthopaedic Surgery Sports Medicine; Visit Provider Orthopaedic Surgery Sports Medicine
PROC: (CPT 29848; principal; 2025-06-14 13:30)
DX: G56.03 Carpal tunnel syndrome, bilateral upper limbs (principal); E11.42 Type 2 diabetes mellitus with diabetic polyneuropathy; Z79.4 Long term (current) use of insulin; K21.9 Gastro-esophageal reflux disease without esophagitis; Z79.85 Long-term (current) use of injectable non-insulin antidiabetic drugs; I10 Essential (primary) hypertension; F17.210 Nicotine dependence, cigarettes, uncomplicated; Z79.899 Other long term (current) drug therapy; Z79.84 Long term (current) use of oral hypoglycemic drugs; E78.5 Hyperlipidemia, unspecified; Z79.82 Long term (current) use of aspirin
CPT/HCPCS: 29848; 01810; 82962; J2405

== ENCOUNTER → 2025-06-27 | Outpatient (CLI) | payer MEDICAID, SELFPAY | END | disposition home or self-care (01) | LOC: CT 17:17 | PROVIDERS: PCP Family Medicine; Referring Provider Nurse Practitioner Acute Care; Visit Provider Nurse Practitioner Acute Care | DX: Z12.2 Encounter for screening for malignant neoplasm of respiratory organs (principal); F17.210 Nicotine dependence, cigarettes, uncomplicated | CPT/HCPCS: 71271 ==

== ENCOUNTER → 2025-07-05 | Outpatient (CLI) | payer MEDICAID, SELFPAY ==
[2025-07-05 16:29] LABS: AST(SGOT) 20 U/L (<=37); Alanine Aminotransfer ALT/SGPT 26 U/L (<=46); Albumin, Serum 4.3 g/dL (3.5-5.0); Alkaline Phosphatase 99 U/L (40-129); Bilirubin, Direct 0.15 mg/dL (0.00-0.30); Cholesterol 193 mg/dL (<=200); Globulin 3.3 g/dL (2.2-4.2); Low Density Lipoprotein Calc. 117 mg/dL; Triglycerides 199 mg/dL; Very Low Density Lipoprotein 40 mg/dL (5-40); cholesterol:hdl ratio screen 5.39
== END | disposition home or self-care (01) ==
LOC: LAB 14:37
PROVIDERS: PCP Family Medicine; Referring Provider Nurse Practitioner Gerontology; Visit Provider Nurse Practitioner Gerontology
DX: E78.5 Hyperlipidemia, unspecified (principal)
CPT/HCPCS: 36415; 80061; 80076

== ENCOUNTER → 2025-07-25 | Outpatient (CLI) | payer MEDICAID, SELFPAY ==
[2025-07-25 16:25] LABS: Hematocrit 44.8 % (40-54); Hemoglobin 14.7 g/dL (13.0-16.5); Immature Granulocytes Count 0.040 X10^3/uL (0.0-0.0); Mean Corp Hgb Conc 32.8 g/dL (32-36); Mean Corpuscular Volume 88.5 fL (80-94); Mean Platelet Vol. 10.4 fl (6.2-12.0); NRBC Flagged by Analyzer 0 % (0-5); Platelet Count 307 K/mm3 (150-450); RBC Distribution Width CV 14.1 % (11.6-14.6); RBC Distribution Width SD 45.3 fl (35.1-43.9); Red Blood Count 5.06 M/mm3 (4.6-6.2); White Blood Count 11.0 K/mm3 (4.4-11.0)
== END | disposition home or self-care (01) ==
LOC: LAB 15:45
PROVIDERS: PCP Family Medicine; Referring Provider Nurse Practitioner Acute Care; Visit Provider Nurse Practitioner Acute Care
DX: J44.9 Chronic obstructive pulmonary disease, unspecified (principal)
CPT/HCPCS: 36415; 82785; 85025; 86003

== ENCOUNTER → 2025-07-27 | Outpatient (CLI) | payer MEDICAID, SELFPAY ==
--- NOTE | 2025-07-27 16:25 | MRI_ITS ---
PROCEDURE: MRI/Spine Lumbar (Routine)
== END | disposition home or self-care (01) ==
LOC: MRI 16:18
PROVIDERS: PCP Family Medicine; Referring Provider Student in an Organized Health Care Education/Training Program; Visit Provider Student in an Organized Health Care Education/Training Program
DX: M43.10 Spondylolisthesis, site unspecified (principal); M51.369 Other intervertebral disc degeneration, lumbar region without mention of lumbar back pain or lower extremity pain
CPT/HCPCS: 72148

== ENCOUNTER 2025-07-28 13:00 | Outpatient (RCR) | payer MEDICAID, SELFPAY ==
--- NOTE | 2025-05-18 14:59 | HP.PTEVAL ---
Patient's Visit Information Visit Information Visit Information: YENNY PENNINGTON is a 54 year old M referred to Physical Therapy by Dr. Anthony Fall MD with a diagnosis of DIABETIC NEUROPATHY. Date of Evaluation: 05/18/25 Physical Therapist: Ben Molina, PT, Cert MDT, OCS Visit Plan Frequency: 2x /Week Duration: 4 Weeks Plan: PT INTERVENTIONS AQUATIC THERAPY ROM/FLEXABILITY ,STRENGTHENING BLE ,FUNCTIONAL STRENGTHENING AND BALANCE TRAINING Subjective Subjective: This 54 y/o male presents to physical therapy for diabetic neuropathy . Patient has neuropathy for 2 years which has worsening . Patient has difficulty walking ,squatting and stairs. Patient has weakness in legs. Pain described as stabbing/pins/needles . Patient c/o paresthesia/tingling in feet and can affects balance. Patient has no PT in past. Patient has no injection . Medication Naprosyn/lyrica. Would recommended pain stimulator. Patient has DM . Patient has intermittent sleeping. Bowel/bladder.Patient condition affects QOL and function. 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: Fishing VOCATION: disability Pain Bilateral Foot: Pain Intensity (Out of 10): 8 Pain Intensity Range: 10 Objective Objective: POSTURE: mild forward posture GAIT: reciprocal pattern slow keshia STAIRS: one step at time with rail FLEXABILITY:hamstrings mod tight MMT: ( peak force) quads right 12.1 ,left 11.2,hamstrings right 10.8 ,left 10.9 ,hip flexion right 11.9 ,left 12.1 AROM: 0-120 supine knee flexion Balance/Special Test Scores CATSIB Score (Max score 120 seconds): 37 Lower Extremity Functional Score: 31 Goals Goal 1:: Patient to be I with Aquatic therapy Goal Time Frame: 4-6 Weeks Goal 2:: Patient to improve strength peak force quads/hams/hip by 5-10# to improve function/gait Goal Time Frame: 4-6 Weeks Goal 3:: Patient to demonstrate 40% improve function and gait. Goal Time Frame: 4-6 Weeks Goal 4:: Patient to improve LFES score by 5 points to improve QOL Goal Time Frame: 4-6 Weeks Rehabilitation Potential Physical Therapy Diagnosis: Patient has neuropathy BLE with weakness , pain ,impaired balance thus benefit from skilled PT Rehabilitation Potential: Fair Anticipated Interventions Patient/Client Instruction: Educate patient on: Condition and Plan of Care For the Purpose of:: To decrease pain, To improve muscle performance and motor function, To improve ability to perform ADL's, To increase tolerance to activity/condition/position, To improve ability of physical actions for home/community/work/leisure, To improve health of tissue, To decrease soft tissue restriction, To increase flexibility/ROM, To improve endurance, To improve balance and To improve tolerance to ADL's Therapeutic Exercise to Include: Strength training, Endurance training, Balance training, Postural training, Flexibilty training, "In an aquatic setting", Active ROM and Dynamic Lumbar Stabilization Comment: BLE For the Purpose of:: To decrease pain, To increase ROM, To improve muscle performance and motor function, To improve ability to perform ADL's, To increase tolerance to activity/condition/position, To improve ability of physical actions for home/community/work/leisure, To improve gait and locomotor functions, To improve endurance, To improve balance and To improve tolerance to ADL's Text: Thank you for the opportunity to evaluate your patient. For Medicare and Medicare HMO plans, please review the plan of care and approve it. It will need to be FAXED BACK to us at [phone] for Medicare purposes. For Medicare only, by signing this I certify the plan of care. Please let me know if there are questions or concerns regarding this plan of care. Physician Signature: Date:
--- NOTE | 2025-07-28 13:18 | HP.PTDCSUM ---
Discharge Summary D/C summary: It has been my pleasure to treat YENNY PENNINGTON referred by Dr. Anthony Fall MD, with the diagnosis of DIABETIC NEUROPATHY for a total of 9 visit(s). Discharge Date: 07/28/25 Please see the following information for a summary of their discharge status. Subjective Subjective: Patient plans to have surgery on sternum Had MRI showed Lumbar degenerative disc disease at L5-S1, in the presence of bilateral L5 spondylolysis, as noted. Aquatic therapy has helped to reduce pain Pain Bilateral Foot: Pain Intensity (Out of 10): 7 Overall Improvement % Improvement: 30 Objective Objective/Function: POSTURE: mild forward posture GAIT: reciprocal pattern slow keshia STAIRS: one step at time with rail FLEXABILITY:hamstrings mod tight MMT: ( peak force) quads right 22.1 ,left 21.2,hamstrings right 21.8 ,left 20.1,hip flexion right 21.1 ,left 22.9 AROM: 0-120 supine knee flexion Goals Goal 1:: Patient to be I with Aquatic therapy Goal Progress: Goal Met Goal 2:: Patient to improve strength peak force quads/hams/hip by 5-10# to improve function/gait Goal Progress: Progressing Goal 3:: Patient to demonstrate 40% improve function and gait. Goal Progress: Progressing Goal 4:: Patient to improve LFES score by 5 points to improve QOL Plan Plan: D/C D/C Information d/c sentence: If there are questions or concerns regarding this patient's physical therapy, please feel free to call me at [phone]. Thank you for the referral of this patient. Sincerely, Ben Molina PT, Cert MDT, OCS Balance/Gait/Functional tests Balance/Special Test Scores CATSIB Score (Max score 120 seconds): 37 Lower Extremity Functional Score: 49 Improvement % Improvement: 30
== END 2025-07-28 19:00 | disposition home or self-care (01) ==
LOC: PT 13:00
PROVIDERS: PCP Family Medicine; Referring Provider Anesthesiology; Visit Provider Anesthesiology
DX: E11.40 Type 2 diabetes mellitus with diabetic neuropathy, unspecified (principal)
CPT/HCPCS: 97113; 97162; 97530